=== PATIENT | male | born 1955 | race Caucasian/White ===

== ENCOUNTER → 2017-08-26 | Outpatient (CLI) | payer OTHER ==
[~2017-08-26] MED LIST: CYCL10TA6 PO; HYDR0.5T PO; HYT/2 PO; PRED-301 PO; ROPI1TAB PO; SULI200T4 PO; TRAM-10 PO
--- NOTE | 2017-08-26 16:50 | DIAGNOSTIC IMAGING REPORT ---
MRI OF THE CERVICAL SPINE WITHOUT IV CONTRAST CLINICAL HISTORY: C2 fracture. Neck pain and numbness. COMPARISON STUDY: CT scan of the cervical spine dated 10/15/2014 and MRI of the cervical spine dated 12/23/2006. TECHNIQUE: MRI of the cervical spine was performed utilizing various T1 and T2-weighted sequences in the axial and sagittal planes. IV contrast was not administered for this examination. The examination is significantly degraded by motion artifact. FINDINGS: Cervical spine: Vertebral body height and alignment are maintained throughout the cervical spine. There is a mild chronic superior endplate compression deformity of T1. 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 The atlantodental articulation appears maintained. The fragments are in anatomic alignment. The spinous processes appear intact. No destructive bony lesion is seen. Intervertebral discs: There is degenerative disc desiccation throughout the cervical spine with mild loss of height. Loss of height is [id number] at C4-C5. Paraspinal cord: The cervical spinal cord is normal in morphology and signal intensity. C2-C3: Facet arthropathy causes minimal neural foraminal stenosis. The central canal is clear. C3-C4: A posterior disc osteophyte complex eccentric to the left effaces the ventral subarachnoid space. Uncovertebral and facet arthropathy cause moderate left greater than right neural foraminal stenosis. C4-C5: A small posterior disc osteophyte complex effaces the ventral subarachnoid space. Uncovertebral and facet arthropathy cause moderate bilateral neural foraminal stenosis. C5-C6: A posterior disc osteophyte complex eccentric to the left abuts the ventral cord. Uncovertebral and facet arthropathy cause [id number] left and jddt-ko-dgnyajvu right neural foraminal stenosis. C6-C7: A posterior disc osteophyte complex minimally effaces the ventral subarachnoid space. Uncovertebral and facet arthropathy cause avcy-po-dcolmzgx left and minimal right neural foraminal stenosis. C7-T1: Unremarkable. Soft tissues: The prevertebral and paraspinous soft tissues are within normal limits. Brain parenchyma: Partially visualized brain parenchyma at the skull base is grossly normal in appearance. IMPRESSION: 1. There is a nonunited fracture through the base of the odontoid process. The atlantodental articulation is preserved and the fragments are in near-anatomic alignment. No significant marrow edema is seen. 2. There is a mild chronic superior endplate compression deformity of T1. 3. Multilevel cervical spondylosis as above. 4. The cervical spinal cord is normal in morphology and signal intensity. Dictated: 08/26/2017 4:25 PM Transcribed: 08/26/2017 4:50 PM [email or web address] Electronically signed by: Axel Cochran M.D. 08/26/2017 5:24 PM Dictated Date/Time: 08/26/2017 4:25 PM
== END | disposition home or self-care (01) ==
LOC: C.MRI 14:51
PROVIDERS: ATTEND Internal Medicine
DX: S12.101K Unspecified nondisplaced fracture of second cervical vertebra, subsequent encounter for fracture with nonunion (principal); M47.892 Other spondylosis, cervical region; X58.XXXD Exposure to other specified factors, subsequent encounter

== ENCOUNTER 2020-02-01 17:08 | Inpatient (IN) ==
--- OUTSIDE RECORDS SUMMARY | 2020-02-01 17:15 | External Medical Summary | Continuity of Care Document ---
:1955 Author Name Sanjay Reyes, Provider Address Unavailable Unavailable , Care Team Providers Name Role Phone Ramona Reyes, [place] [email or web address] PCP, UNKNOWN Unavailable Unavailable Problems Active medical history not documented Allergies and Adverse Reactions Allergy history not documented Medications Medications not documented Procedures Procedures not documented Immunizations Immunizations not documented Plan of Treatment Planned Observations Planned Goals not documented Results No Known Results Results not documented
[2020-02-01] MEDS ORDERED: SODIUM CHLORIDE 0.9% 1000ML 1,000 ML IV ONE (17:25)
--- NOTE | 2020-02-01 17:48 | Emergency Department Note ---
Impression & Plan Atrial flutter, Pneumonia Allergies Allergies Allergy/AdvReac Type Severity Reaction Status Date / Time No Known Drug Allergies Allergy Unknown NONE Verified 01/25/18 12:22 Home Meds Home Medications Medication Instructions Recorded Confirmed diclofenac sodium 50 mg PO BID PRN 08/12/18 08/12/18 etanercept [Enbrel] 50 mg SUBCUT WK 08/12/18 08/12/18 ferrous sulfate [iron] 325 mg PO QPM 08/12/18 08/12/18 multivitamin 1 tab PO QPM 08/12/18 08/12/18 naproxen 500 mg PO BID PRN 08/12/18 08/12/18 potassium chloride [Klor-Con M20] 20 meq PO QAM 08/12/18 08/12/18 ropinirole [Requip] 2 mg PO HS PRN 08/12/18 08/12/18 terazosin 2 mg PO BID 08/12/18 08/12/18 ED Provider Note NAME: JASEN YO AGE: 64 SEX: M : 1955 ARRIVES VIA: Ambulance INFORMANT: [Patient][, ] ED PROVIDER(S): [Edvin Cotter MD] Chief Complaint: Cough, night sweats HPI: Patient does present via EMS due to concern for cough and night sweats. The patient is also been complaining shortness of breath. The patient has had mild nonproductive cough. The patient is currently undomiciled but has been living out of hotels as well as the out of the cold program. The patient does take Enbrel for rheumatoid arthritis. The patient dates has not been on this for approximately 6 weeks. Patient also does relate that he has been using pseudoephedrine for upper respiratory type symptoms. The patient denies any recent sick contacts but he has been around a number of people who also do not have at home. The patient states his symptoms have gotten progressively worse over the last several days. The Sudafed has only made him mildly better. ROS: See HPI for pertinent positives and negatives. A total of 10 systems were reviewed and otherwise negative. Past medical history: See below Surgical history: See below Social history: See below Physical Exam: GENERAL: Ill-appearing, NAD, non-toxic. Wearing mask EYE EXAM: Normal conjunctiva. PERRL, no anisocoria and EOM's grossly intact w/o pain. NECK: Supple, no nuchal rigidity, no adenopathy, non-tender. No signs of meningismus. LUNGS: Clear to auscultation. Normal chest wall mechanics. HEART: Tachycardic and regular, no MRG. ABDOMEN: Abdomen soft, non-tender, normo-active bowel sounds, no masses, no rebound or guarding. BACK: No CVA TTP. SKIN: No rashes and no bruising. UPPER EXTREMITIES: Upper extremities are grossly normal. LOWER EXTREMITIES: Grossly normal, trace pretibial edema that is symmetric bilaterally. No erythema. NEURO EXAM: A&O x3, cranial nerves II-XII grossly intact, normal speech, moves all 4 extremities on command w/o issue. Differential diagnoses: Reactive airway disease, pneumonia, pneumothorax, COPD, CHF, infections, cardiac ischemia, pulmonary embolism, musculoskeletal, gastro intestinal, as well as other pathologies. Course: Patient was seen and evaluated the bedside. A full history and physical exam was performed under full PPE. Patient did receive adenosine. Subsequently patient did receive Cardizem. The patient was updated on his findings. His heart rate did improve. Did speak the on-call hospitalist Dr. Moctezuma who agreed to further evaluate treat the patient. Patient was admitted to the medicine service. EKG: Indication: Shortness of breath Time: 1722 SVT versus A. fib, ventricular rate 154, normal QRS, left axis deviation, T wave inversions inferiorly Time: 1841 Indication: Post adenosine administration A. fib versus a flutter ventricular rate 143, normal QRS duration, normal axis, T wave inversion inferiorly Time: 1853 Indication: post Cardizem administration Atrial flutter with variable AV block, ventricular rate weight 103, normal QRS, normal axis, TWI inferiorly and laterally; rates improved compared to prior. Imaging Studies: Radiology results as stated below per my review in the radiologist's interpretation: XR chest 1V portable CLINICAL HISTORY: cough, nightsweats, ?shelters, possible TB dyspnea COMPARISON STUDY: 01/25/2018 FINDINGS: Interval development of diffuse parenchymal infiltrates the mid to lower lung region. This may be inflammatory and/or related to developing pulmonary edema. The pulmonary apices are clear. IMPRESSION: Bilateral parenchymal infiltrates the mid to lower lung regions bilaterally. This may represent pneumonitis versus pulmonary edematous change. ACT 112: Negative or not required by law. The above report was generated using voice recognition software. It may contain grammatical, syntax or spelling errors. Electronically signed by: Fidencio Garza M.D. 02/01/2020 6:05 PM Dictated: 02/01/201803 Transcribed: 02/01/201803 Cardiac monitoring: An order was placed for continuous cardiac monitoring. The monitor shows a rate of 150 with sinus tachycardia versus SVT rhythm. MDM: Patient was seen in [facility] at the bedside. The patient is currently undomiciled. The patient has been having cough and night sweats. Upper respiratory symptoms. Patient had a bladder completed along with an EKG troponin blood cultures QuantiFERON gold coronavirus testing as well as a flu swab. The patient was given IV fluids. The patient does relate that he has been taking more and more Sudafed which may also be contributing to his tachycardia. Will continue to hydrate and reassess the patient's vital signs. The patient's heart rate did not improve. Patient initial EKG does show concern for possible SVT. A trial of adenosine was given. The patient did have improvement in his heart rate but subsequently repeat EKG did show an A. fib versus a flutter. The patient did receive 15 of Cardizem. The patient's heart rate improved. The patient felt improved in terms of his shortness of breath. Given the patient's concerning chest x-ray I believe that the patient would benefit from antibiotics especially given his high risk nature as he is currently undomiciled. Patient's white count and lactate are normal. The patient has fairly normal kidney function. The patient likely does have prerenal azotemia. The patient was given potassium. Coronavirus and TB pendi ng. Flu negative. Patient was admitted to the medicine service. Critical Care I have personally spent 92 minutes of critical care time in direct management of this patient. This includes bedside care, interpretation of diagnostic studies, and testing, discussion with consultants, patient, and family members, and other require inpatient management activities. This 92 minutes is in excess of all separately billable procedures. Past Med/Surg History Medical History Anemia BPH (benign prostatic hyperplasia) Hx of fracture of leg left - not current Hypertension Restless leg syndrome Rheumatoid arthritis Urinary frequency r/t prostate Surgical History History of tonsillectomy History of tooth extraction Family History Father Family history of diabetes mellitus Social History Preferred Language: Nepali Communication Ability: Effective Beliefs That Will Affect Care: None Current Living Situation: Alone Feels Safe at Home: Yes Smoking Status: Former smoker Second Hand Exposure: No ; Hx Alcohol Use: No Hx Substance Use: Yes substance use type: painkillers and prescription drug Results & Data (ED) Vital Signs Vital Signs - 24 hr 02/01/20 17:25 02/01/20 17:30 02/01/20 17:40 Temperature 36.7 C Temperature Source Oral Pulse Rate 153 H 153 H 153 H Pulse Rate from SpO2 Sensor 153 H 153 H Pulse Rhythm Regular Pulse Strength Normal Respiratory Rate 20 25 H 23 Respiratory Effort / Characteristics Non-Labored Spontaneous Respiratory Depth Normal Respiratory Pattern Regular Blood Pressure 141/87 H Blood Pressure Mean 105 Pulse Oximetry 96 98 98 Oxygen Delivery Method Room Air Sepsis Recent Fever Within 48 Hours No Sepsis New/Unexplained Change in Mental Status No Sepsis Action Taken by Nursing No Action Required 02/01/20 17:50 02/01/20 18:00 02/01/20 18:10 Temperature Temperature Source Pulse Rate 149 H 154 H 153 H Pulse Rate from SpO2 Sensor 152 H 153 H 154 H Pulse Rhythm Pulse Strength Respiratory Rate 21 18 Respiratory Effort / Characteristics Respiratory Depth Respiratory Pattern Blood Pressure Blood Pressure Mean Pulse Oximetry 97 96 97 Oxygen Delivery Method Sepsis Recent Fever Within 48 Hours Sepsis New/Unexplained Change in Mental Status Sepsis Action Taken by Nursing 02/01/20 18:20 02/01/20 18:30 02/01/20 18:36 Temperature Temperature Source Pulse Rate 154 H 155 H 149 H Pulse Rate from SpO2 Sensor 154 H 155 H 152 H Pulse Rhythm Pulse Strength Respiratory Rate 15 22 24 Respiratory Effort / Characteristics Respiratory Depth Respiratory Pattern Blood Pressure 127/98 Blood Pressure Mean 115 Pulse Oximetry 96 95 95 Oxygen Delivery Method Sepsis Recent Fever Within 48 Hours Sepsis New/Unexplained Change in Mental Status Sepsis Action Taken by Nursing 02/01/20 18:40 02/01/20 18:45 02/01/20 18:46 Temperature Temperature Source Pulse Rate 139 H 143 H 142 H Pulse Rate from SpO2 Sensor 143 H 149 H 145 H Pulse Rhythm Pulse Strength Respiratory Rate 23 23 27 H Respiratory Effort / Characteristics Respiratory Depth Respiratory Pattern Blood Pressure 145/107 H 139/100 Blood Pressure Mean 112 121 Pulse Oximetry 95 95 96 Oxygen Delivery Method Sepsis Recent Fever Within 48 Hours Sepsis New/Unexplained Change in Mental Status Sepsis Action Taken by Nursing 02/01/20 18:48 02/01/20 18:50 02/01/20 19:00 Temperature Temperature Source Pulse Rate 133 H 124 H 117 H Pulse Rate from SpO2 Sensor 141 H 129 H 94 H Pulse Rhythm Pulse Strength Respiratory Rate 24 29 H 22 Respiratory Effort / Characteristics Respiratory Depth Respiratory Pattern Blood Pressure 112/80 104/80 Blood Pressure Mean 85 91 Pulse Oximetry 95 95 96 Oxygen Delivery Method Sepsis Recent Fever Within 48 Hours Sepsis New/Unexplained Change in Mental Status Sepsis Action Taken by Nursing 02/01/20 19:01 02/01/20 19:10 02/01/20 19:20 Temperature Temperature Source Pulse Rate 102 H 108 H 133 H Pulse Rate from SpO2 Sensor 109 H 111 H 126 H Pulse Rhythm Pulse Strength Respiratory Rate 25 H 25 H 27 H Respiratory Effort / Characteristics Respiratory Depth Respiratory Pattern Blood Pressure 158/84 H 130/95 117/91 Blood Pressure Mean 126 102 93 Pulse Oximetry 93 94 95 Oxygen Delivery Method Sepsis Recent Fever Within 48 Hours Sepsis New/Unexplained Change in Mental Status Sepsis Action Taken by Nursing 02/01/20 19:30 02/01/20 19:31 02/01/20 19:40 Temperature Temperature Source Pulse Rate 141 H 132 H 128 H Pulse Rate from SpO2 Sensor Pulse Rhythm Pulse Strength Respiratory Rate 24 27 H 20 Respiratory Effort / Characteristics Respiratory Depth Respiratory Pattern Blood Pressure 154/88 H 136/83 Blood Pressure Mean 112 113 Pulse Oximetry 97 Oxygen Delivery Method Sepsis Recent Fever Within 48 Hours Sepsis New/Unexplained Change in Mental Status Sepsis Action Taken by Care Home Medications Current Medication List: was personally reviewed by me Laboratory Data Attestation: I reviewed the patient's lab results. Result diagrams: 02/01/20 17:51 02/01/20 17:51 Lab Results 02/01/20 02/01/20 02/01/20 Range/Units 17:36 17:41 17:51 WBC 7.80 (4.8-10.8) K/uL RBC 4.57 L (4.7-6.1) M/uL Hgb 11.7 L (14.0-18.0) g/dL Hct 36.3 L (42-52) % MCV 79.4 L (80-100) fL MCH 25.6 (25-34) pg MCHC 32.2 (32-36) g/dL RDW Std Deviation 45.8 (36.4-46.3) fL RDW Coeff of Jayjay 15.8 H (11.5-14.5) % Plt Count 476 H (130-400) K/uL MPV 9.9 (7.4-10.4) fL Immature Gran % (Auto) 0.3 % Neut % (Auto) 70.0 % Lymph % (Auto) 17.1 % Giles % (Auto) 7.2 % Eos % (Auto) 5.0 % Baso % (Auto) 0.4 % Immature Gran # (Auto) 0.02 (0.00-0.02) K/uL Neut # (Auto) 5.47 (1.4-6.5) K/uL Lymph # (Auto) 1.33 (1.2-3.4) K/uL Giles # (Auto) 0.56 (0.11-0.59) K/uL Eos # (Auto) 0.39 (0-0.5) K/uL Baso # (Auto) 0.03 (0-0.2) K/uL PT (9.0-12.0) Seconds INR (0.9-1.1) APTT (21.0-31.0) Seconds PTT Ratio Sodium (136-145) mmol/L Potassium (3.5-5.1) mmol/L Chloride (98-107) mmol/L Carbon Dioxide (21-32) mmol/L Anion Gap (3-11) BUN (7-18) mg/dl Creatinine (0.6-1.4) mg/dl Est Cr Clr Drug Dosing ml/min Est GFR ( Amer) Est GFR (Non-Af Amer) BUN/Creatinine Ratio (10-20) Glucose (70-99) mg/dl Lactate 1.3 (0.4-2.0) mmol/L Calcium (8.5-10.1) mg/dl Phosphorus (2.5-4.9) mg/dl Magnesium (1.8-2.4) mg/dl Total Bilirubin (0.2-1) mg/dl AST (15-37) U/L ALT (12-78) U/L Alkaline Phosphatase (45-117) U/L Total Protein (6.4-8.2) gm/dl Albumin (3.4-5.0) gm/dl Globulin (2.5-4.0) gm/dl Albumin/Globulin Ratio (0.9-2) Procalcitonin (0-0.5) ng/ml Influenza Type A (PCR) Neg for Influ A (Neg) Influenza Type B (PCR) Neg for Influ B (Neg) 02/01/20 02/01/20 02/01/20 Range/Units 17:51 17:51 17:51 WBC (4.8-10.8) K/uL RBC (4.7-6.1) M/uL Hgb (14.0-18.0) g/dL Hct (42-52) % MCV (80-100) fL MCH (25-34) pg MCHC (32-36) g/dL RDW Std Deviation (36.4-46.3) fL RDW Coeff of Jayjay (11.5-14.5) % Plt Count (130-400) K/uL MPV (7.4-10.4) fL Immature Gran % (Auto) % Neut % (Auto) % Lymph % (Auto) % Giles % (Auto) % Eos % (Auto) % Baso % (Auto) % Immature Gran # (Auto) (0.00-0.02) K/uL Neut # (Auto) (1.4-6.5) K/uL Lymph # (Auto) (1.2-3.4) K/uL Giles # (Auto) (0.11-0.59) K/uL Eos # (Auto) (0-0.5) K/uL Baso # (Auto) (0-0.2) K/uL PT 12.3 H (9.0-12.0) Seconds INR 1.2 H (0.9-1.1) APTT 28.0 (21.0-31.0) Seconds PTT Ratio 1.0 Sodium 138 (136-145) mmol/L Potassium 3.2 L (3.5-5.1) mmol/L Chloride 107 (98-107) mmol/L Carbon Dioxide 25 (21-32) mmol/L Anion Gap 6.0 (3-11) BUN 25 H (7-18) mg/dl Creatinine 0.83 (0.6-1.4) mg/dl Est Cr Clr Drug Dosing 95.8 ml/min Est GFR ( Amer) 107.8 Est GFR (Non-Af Amer) 93.0 BUN/Creatinine Ratio 30.2 H (10-20) Glucose 112 H (70-99) mg/dl Lactate (0.4-2.0) mmol/L Calcium 8.2 L (8.5-10.1) mg/dl Phosphorus 2.8 (2.5-4.9) mg/dl Magnesium 2.1 (1.8-2.4) mg/dl Total Bilirubin 0.4 (0.2-1) mg/dl AST 22 (15-37) U/L ALT 28 (12-78) U/L Alkaline Phosphatase 101 (45-117) U/L Total Protein 7.0 (6.4-8.2) gm/dl Albumin 2.6 L (3.4-5.0) gm/dl Globulin 4.4 H (2.5-4.0) gm/dl Albumin/Globulin Ratio 0.6 L (0.9-2) Procalcitonin 0.11 (0-0.5) ng/ml Influenza Type A (PCR) (Neg) Influenza Type B (PCR) (Neg) Administered Medications Heparin Sodium/Dextrose (Heparin Sodium/Dextrose) 25,000 units in 500 mls @ 0.02 mls/hr IV .Q24H [facility]; Protocol Stop: 03/02/20 18:59 Last Admin: 02/01/20 19:19 Dose: 1,450 units/hr, 29 mls/hr Documented by: [id number] Cosigned by: [id number] Discontinued Medications Adenosine (Adenosine) 6 mg IV NOW STA Stop: 02/01/20 18:22 Last Admin: 02/01/20 18:37 Dose: 6 mg Documented by: [id number] Adenosine (Adenosine) 12 mg IV NOW STA Stop: 02/01/20 18:22 Last Admin: 02/01/20 18:44 Dose: Not Given Documented by: [id number] Adenosine (Adenosine) Confirm Administered Dose 18 mg IV .STK-MED ONE Stop: 02/01/20 18:24 Last Admin: 02/01/20 18:44 Dose: Not Given Documented by: [id number] Diltiazem HCl (Cardizem) Confirm Administered Dose 25 mg IV .STK-MED ONE Stop: 02/01/20 18:45 Last Admin: 02/01/20 18:48 Dose: Not Given Documented by: [id number] Diltiazem HCl (Cardizem) 15 mg IV NOW STA Stop: 02/01/20 18:46 Last Admin: 02/01/20 18:46 Dose: 15 mg Documented by: [id number] Cosigned by: [id number] Doxycycline Hyclate (Vibramycin) 100 mg PO NOW STA Stop: 02/01/20 18:57 Last Admin: 02/01/20 19:33 Dose: 100 mg Documented by: [id number] Heparin Sodium (Porcine) (Heparin Iv Bolus) Confirm Administered Dose 10,000 units .ROUTE .STK-MED ONE Stop: 02/01/20 19:10 Last Admin: 02/01/20 19:19 Dose: 5,000 units Documented by: [id number] Cosigned by: [id number] Heparin Sodium/Dextrose () 1 ea IV NOW STA; Protocol Stop: 02/01/20 18:56 Last Admin: 02/01/20 19:48 Dose: 1 ea Documented by: [id number] Sodium Chloride (Nss 1000ml) 1,000 mls @ 999 mls/hr IV .Q1H1M ONE Stop: 02/01/20 18:25 Last Infusion: 02/01/20 18:20 Dose: 0 mls/hr Documented by: [id number] Admin: 02/01/20 17:25 Dose: 999 mls/hr Documented by: [id number] Ceftriaxone Sodium (Rocephin) 2,000 mg in 70 mls @ 140 mls/hr IV NOW STA Stop: 02/01/20 19:25 Last Admin: 02/01/20 19:33 Dose: 140 mls/hr Documented by: [id number] Blood Pressure Blood Pressure Findings: Elevated blood pressure Blood Pressure Disposition: further management by hospitalist Discharge Plan Visit Data Chief Complaint: Illness Stated Complaint: COUGH, NIGHT SWEATS ED Provider: Edvni Cotter Discharge Problem: Atrial flutter, Pneumonia Patient Disposition: Being Evaluated by Hospitalist Forms Stand Alone Forms: [facility], Important Visit Information Prescriptions Prescriptions: No Action multivitamin Tablet 1 tab PO QPM RF: 0 potassium chloride [Klor-Con M20] 20 mEq Tablet,Er Particles/Crystals 20 meq PO QAM RF: 0 terazosin 2 mg Capsule 2 mg PO BID RF: 0 ropinirole [Requip] 2 mg Tablet 2 mg PO HS PRN (Reason: Restless Leg(S)) RF: 0 ferrous sulfate [iron] 325 mg (65 mg iron) Tablet 325 mg PO QPM RF: 0 diclofenac sodium 50 mg Tablet,Delayed Release (Dr/Ec) 50 mg PO BID PRN (Reason: Pain) RF: 0 naproxen 500 mg Tablet 500 mg PO BID PRN (Reason: Pain) RF: 0 etanercept [Enbrel] 50 mg/mL (0.98 mL) Syringe 50 mg subcut WK RF: 0 Referrals Referrals: PCP,NO [Primary Care Provider] - Discharge Problem: Atrial flutter Qualifiers: Atrial flutter type: unspecified Qualified Code(s): I48.92 - Unspecified atrial flutter Pneumonia Qualifiers: Pneumonia type: due to unspecified organism Laterality: right Lung location: lo wer lobe of lung Qualified Code(s): J18.9 - Pneumonia, unspecified organism
[2020-02-01 18:05] LABS: Basophils # (auto) 0.03 K/uL (0-0.2); Basophils % (auto) 0.4 %; Eosinophils # (auto) 0.39 K/uL (0-0.5); Hematocrit (blood only) 36.3 % (42-52); Hemoglobin 11.7 g/dL (14.0-18.0); Immature Granulocytes # (auto) 0.02 K/uL (0.00-0.02); Immature Granulocytes % (auto) 0.3 %; Lymphocytes # (auto) 1.33 K/uL (1.2-3.4); Lymphocytes % (auto) 17.1 %; Mean Corpuscular Hemoglobin 25.6 pg (25-34); Mean Corpuscular Hgb Conc 32.2 g/dL (32-36); Mean Corpuscular Volume 79.4 fL (80-100); Mean Platelet Volume 9.9 fL (7.4-10.4); Monocytes # (auto) 0.56 K/uL (0.11-0.59); Monocytes % (auto) 7.2 %; Neutrophils # (auto) 5.47 K/uL (1.4-6.5); Platelet Count 476 K/uL (130-400); RDW Coefficient of Variation 15.8 % (11.5-14.5); RDW Standard Deviation 45.8 fL (36.4-46.3); Red Blood Count 4.57 M/uL (4.7-6.1)
--- NOTE | 2020-02-01 18:06 | XRay Report ---
XR chest 1V portable CLINICAL HISTORY: cough, nightsweats, ?shelters, possible TB dyspnea COMPARISON STUDY: 01/25/2018 FINDINGS: Interval development of diffuse parenchymal infiltrates the mid to lower lung region. This may be inflammatory and/or related to developing pulmonary edema. The pulmonary apices are clear. IMPRESSION: Bilateral parenchymal infiltrates the mid to lower lung regions bilaterally. This may re present pneumonitis versus pulmonary edematous change. ACT 112: Negative or not required by law. The above report was generated using voice recognition software. It may contain grammatical, syntax or spelling errors. Electronically signed by: Fidencio Garza M.D. 02/01/2020 6:05 PM
[2020-02-01 18:17] LABS: INR 1.2 (0.9-1.1); Prothrombin Time 12.3 Seconds (9.0-12.0)
[2020-02-01] MEDS ORDERED: ADENOSINE IV SOLN 3 MG/ML 2 ML VIAL IV STA ×2 (18:21)
[2020-02-01] MEDS ORDERED: ADENOSINE IV SOLN 3 MG/ML 2 ML VIAL IV ONE (18:23)
[2020-02-01 18:41] LABS: Alanine Aminotransferase 28 U/L (12-78); Albumin Level 2.6 gm/dl (3.4-5.0); Aspartate Aminotransferase 22 U/L (15-37); BUN Creatinine Ratio 30.2 (10-20); Blood Urea Nitrogen 25 mg/dl (7-18); Calcium 8.2 mg/dl (8.5-10.1); Carbon Dioxide 25 mmol/L (21-32); Chloride 107 mmol/L (98-107); Creatinine Clr Calc Pharmacy 95.8 ml/min; Est GFR (African American) 107.8; Glucose 112 mg/dl (70-99); Magnesium 2.1 mg/dl (1.8-2.4); Potassium 3.2 mmol/L (3.5-5.1); Sodium 138 mmol/L (136-145)
[2020-02-01 18:43] LABS: Albumin Globulin Ratio 0.6 (0.9-2); Alkaline Phosphatase 101 U/L (45-117); Bilirubin,Total 0.4 mg/dl (0.2-1); Globulin 4.4 gm/dl (2.5-4.0); Phosphorus 2.8 mg/dl (2.5-4.9)
[2020-02-01] MEDS ORDERED: dilTIAZem HCl 5 MG/ML 5 ML VIAL IV ONE (18:44)
[2020-02-01] MEDS ORDERED: dilTIAZem HCl 5 MG/ML 5 ML VIAL IV STA (18:45)
[2020-02-01 18:48] LABS: Influenza A virus by PCR Neg for Influ A (Neg); Influenza B virus by PCR Neg for Influ B (Neg)
[2020-02-01] MEDS ORDERED: cefTRIAXone SODIUM 2,000 MG/70 ML BAG IV STA (18:56)
[2020-02-01] MEDS ORDERED: DOXYCYCLINE HYCLATE 100 MG CAP PO STA (18:56)
[2020-02-01] MEDS ORDERED: HEPARIN SODIUM/DEXTROSE 25,000 UNITS/500 ML BAG IV SCH (19:00)
[2020-02-01] MEDS ORDERED: HEPARIN SOD (PORCINE) 1000 UNIT/ML 10 ML VIAL ONE (19:09)
[2020-02-01] MEDS ORDERED: POTASSIUM CHLORIDE 20 MEQ TABCR PO STA (19:47)
[2020-02-01] MEDS ORDERED: METOPROLOL TARTRATE 1 MG/ML VIAL IV PRN (19:47)
[2020-02-01 20:04] LABS: Appearance Urine Clear (Clear); Bilirubin Urine Negative (Negative); Blood Urine Negative (Negative); Color Urine Yellow; Glucose Urine UA Negative (Negative); Ketones Urine Negative (Negative); Leukocyte Esterase Urine Negative (Negative); Nitrite Urine Negative (Negative); Protein Urine Negative (Negative); Specific Gravity Urine 1.021 (1.000-1.030); Urobilinogen Urine Negative (Negative); pH Urine 6.5 (4.5-7.5)
[2020-02-01] MEDS: POTASSIUM CHLORIDE / WTR 10 MEQ/100 ML PLCT IV SCH ×2 (20:05→21:18)
[2020-02-01] MEDS ORDERED: ALBUMIN HUMAN 25% 12.5 GM/50 ML VIAL IV ONE (20:47)
[2020-02-01] MEDS: ALBUMIN 25% 50 ML IV SCH ×2 (21:00→22:22)
[2020-02-01] MEDS ORDERED: ALBUMIN 25% 50 ML IV ONE (21:12)
[2020-02-01] MEDS ORDERED: NAPROXEN 250 MG TAB PO PRN (21:59)
[2020-02-01] MEDS ORDERED: FERROUS SULFATE 325 MG TAB PO SCH (21:59)
[2020-02-01] MEDS ORDERED: DICLOFENAC SODIUM 25 MG TABDR PO PRN (21:59)
[2020-02-01] MEDS ORDERED: ALUMINUM/MAGNESIUM SUSP 30 ML UDC PO PRN (21:59)
[2020-02-01] MEDS ORDERED: ACETAMINOPHEN 325 MG TAB PO PRN (21:59)
[2020-02-01] MEDS ORDERED: MAGNESIUM HYDROXIDE SUSP 30 ML UDC PO PRN (21:59)
[2020-02-01] MEDS ORDERED: PIPERACILL/TAZOBAC CONSULT ACTIVE PRN (21:59)
[2020-02-01] MEDS ORDERED: ONDANSETRON INJ 2 MG/ML 2 ML VIAL IV PRN (21:59)
[2020-02-01] MEDS ORDERED: VANCOMYCIN CONSULT ACTIVE PRN (21:59)
[2020-02-01 22:19] LABS: Troponin I < 0.015 ng/ml (0-0.045)
--- NOTE | 2020-02-01 22:46 | History & Physical Report ---
Date of Service February 01, 2020 Assessment & Plan (1) Atrial flutter: New onset atrial flutter with RVR//hypertension/hypokalemia- The patient will be admitted to telemetry for serial cardiac enzymes, serial EKG's, cardiac rhythm monitoring and a 2-D echocardiogram with Dopplers. Hold terazosin [address] twice daily. [address] on Cardizem 10 mg IV every 4 hours with hold parameters. Lopressor 5 mg IV every 4 hours as needed for heart rate greater than 110 or systolic blood pressure greater than 130. Give Klor-Con 40 mEq p.o. now, and then KCl 10 mEq K riders x2. Repeat laboratories in a.m. Consult cardiology Present on Admission?: Yes (2) Rheumatoid arthritis: Patient reports he has not had his Enbrel for 6 weeks. Present on Admission?: Yes (3) Restless leg syndrome: Continue ropinirole 1 mg p.o. twice daily Present on Admission?: Yes (4) BPH (benign prostatic hyperplasia): Hold terazosin due to atrial flutter. May change to tamsulosin Present on Admission?: Yes (5) Hypertension: See above. Present on Admission?: Yes (6) Pneumonia: Significantly greater right sided pneumonia compared to left. Place on vancomycin IV, Zosyn IV and levofloxacin IV Duonebs every 4 hours while awake and every 2 hours when necessary. Guaifenesin extended release 600 mg p.o. twice daily. Nasal cannula oxygen, titrate to keep pulse ox 94 to 95%. Placed in negative pressure room due to potential COVID due to non-domiciled status and potential exposures to other non-domiciled persons. Present on Admission?: Yes (7) Hypokalemia: See above. Present on Admission?: Yes (8) Hypoalbuminemia: Was given albumin 25 g IV x2 in ED, and will continue every 4 hours x3 more doses, to help with heart rate and blood pressure Present on Admission?: Yes (9) Homeless single person: Due to his non-domiciled status, patient is considered at increased risk for COVID. Present on Admission?: Yes Admission and Anticipated Discharge Date Admission Date: February 01, 2020 History of Present Illness Chief Complaint: The patient presents to the emergency department with complaint of nonproductive cough, sweats, shortness of breath and fatigue over the last few weeks, but worsening of the last several days. Primary Care Provider: NO PCP The patient is a 64-year-old male with a past medical history including rheumatoid arthritis, odontoid fracture, thoracic vertebral fracture, restless leg syndrome, iron deficiency who presents to the emergency department with the above symptoms. He is presently an undomiciled male, who has been living out of hotels and the out of the [email or web address] program. He has not had any recent travels, and is not aware of any sick contacts, but he has been around a number of people who also do not have a home. In the emergency department he had an EKG performed and continuous monitoring, which suggested atrial flutter in the rate range of 140s to 150s. He did receive Cardizem 10 mg IV, and adenosine 6 mg IV, and later after the addition of Lopressor 5 mg IV, rate overall did improve somewhat to the low 100s range. Chest x-ray performed showed significant right middle lobe and right lower lobe infiltrates along with left lower lobe infiltrate. Laboratory abnormalities were primarily concerning for potassium of 3.2, albumin of 2.6, hemoglobin of 11.7 and platelets of 476. Allergies Allergy/AdvReac Type Severity Reaction Status Date / Time No Known Drug Allergies Allergy Unknown NONE Verified 02/01/20 20:33 Home Medications Home Medications Medication Instructions Recorded Confirmed Type diclofenac sodium 50 mg PO BID PRN 08/12/18 02/01/20 History etanercept [Enbrel] 50 mg SUBCUT WK 08/12/18 02/01/20 History ferrous sulfate [iron] 325 mg PO QPM 08/12/18 02/01/20 History multivitamin 1 tab PO QPM 08/12/18 02/01/20 History naproxen 500 mg PO BID PRN 08/12/18 02/01/20 History potassium chloride [Klor-Con M20] 20 meq PO QAM 08/12/18 02/01/20 History ropinirole 1 mg PO BID 02/01/20 02/01/20 History terazosin 1 mg PO BID 02/01/20 02/01/20 History tramadol 50 mg PO Q8H PRN 02/01/20 02/01/20 History Past Med/Surg History Medical History Anemia BPH (benign prostatic hyperplasia) Hx of fracture of leg left - not current Hypertension Restless leg syndrome Rheumatoid arthritis Urinary frequency r/t prostate Surgical History History of tonsillectomy History of tooth extraction Family History Father Family history of diabetes mellitus Social History Preferred Language: Vietnamese Communication Ability: Effective Research 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 Policy Required: No Beliefs That Will Affect Care: None Current Living Situation: Homeless Other Information That Helps Us Care for You: No Feels Safe at Home: No Is there a partner from a previous relationship who is making you feel unsafe now?: No Any Concerns about Your Family Situation: No Would You Like to Speak to Someone About Your Situation: No Smoking Status: Never smoker Second Hand Exposure: No ; Hx Alcohol Use: No Hx Substance Use: No Review of Systems Review of Systems: The patient denies chest pain, palpitations, lower extremity swelling, sore throat, fevers, chills, sweats, nausea, vomiting, diarrhea , constipation, abdominal pain, pelvic pain, blood in urine or stool, dysuria, urinary frequency or urgency, lightheadedness, dizziness, headache, memory loss, loss of consciousness, rash, abnormal bruising or bleeding, imbalance, focal or generalized weakness, numbness or tingling in arms or legs, generalized arthralgias or myalgias, back or neck pain, or night sweats. The review of systems is otherwise negative other than for that already noted above, and at least 10 systems have been reviewed. Physical Exam Physical Exam: The patient is awake, alert and oriented 3, well developed and well nourished, normocephalic and atraumatic, lying in bed and in no acute dist ress. HEENT--PERRL, EOMI, mucous membranes and oropharynx dry. Neck--supple. No JVD. No bruits. Thyroid normal, trachea midline, no adenopathy. Heart--normal S1 and S2. No murmurs, rubs or gallops. Lungs--clear bilaterally, no respiratory distress, no accessory muscle use. Abdomen--normal bowel sounds and soft. Nontender. Nondistended, no hernias or masses, no organomegaly. Extremities--no cyanosis or clubbing. No edema. There are good distal pulses b/l. Dermatologic--normal skin turgor, normal color, no abnormal lymph nodes, no rash. Neurologic--cranial nerves II through XII grossly intact. Rheumatologic--normal range of motion. Psychiatric--normal affect. Results & Data Results & Data ([facility]) Vital Signs (Past 12 Hours) Vital Signs Temp Pulse Resp BP Pulse Ox 02/01/20 21:54 141 H 27 H 123/92 94 02/01/20 21:22 133 H 29 H 94 02/01/20 21:20 153 H 24 117/95 94 02/01/20 21:19 155 H 25 H 135/99 91 02/01/20 21:10 156 H 31 H 120/102 H 02/01/20 21:00 141 H 32 H 123/101 H 02/01/20 20:51 118 H 29 H 02/01/20 20:50 141 H 25 H 111/93 02/01/20 20:41 152 H 22 02/01/20 20:40 151 H 27 H 109/87 02/01/20 20:31 152 H 27 H 02/01/20 20:30 151 H 27 H 114/96 02/01/20 20:20 131 H 26 H 110/93 02/01/20 20:10 132 H 31 H 125/100 02/01/20 20:05 138 H 140/96 02/01/20 20:00 142 H 27 H 140/96 02/01/20 19:50 132 H 22 141/106 H 02/01/20 19:40 128 H 20 136/83 97 02/01/20 19:31 132 H 27 H 154/88 H 02/01/20 19:30 141 H 24 02/01/20 19:20 133 H 27 H 117/91 95 02/01/20 19:10 108 H 25 H 130/95 94 02/01/20 19:01 102 H 25 H 158/84 H 93 02/01/20 19:00 117 H 22 96 02/01/20 18:50 124 H 29 H 104/80 95 02/01/20 18:48 133 H 24 112/80 95 02/01/20 18:46 142 H 27 H 96 02/01/20 18:45 143 H 23 139/100 95 02/01/20 18:40 139 H 23 145/107 H 95 02/01/20 18:36 149 H 24 127/98 95 02/01/20 18:30 155 H 22 95 02/01/20 18:20 154 H 15 96 02/01/20 18:10 153 H 97 02/01/20 18:00 154 H 18 96 02/01/20 17:50 149 H 21 97 02/01/20 17:40 153 H 23 98 02/01/20 17:30 153 H 25 H 98 02/01/20 17:25 98.1 F 153 H 20 141/87 H 96 Code Status & VTE Plan Code Status Full code VTE Prophylaxis Plan VTE Prophylaxis will be ordered: Yes PG Care Time/CCT Total # of Minutes Spent Total Time Spent with Patient: Total time spent is greater than 50% in coordination of care (as documented) at patient's floor/unit and/or counseling patient: Coding Level of Care Code 29973 Initial Inpt Care Lvl 3 Diagnoses Atrial flutter I48.92 Atrial flutter type: unspecified Rheumatoid arthritis M06.9 Restless leg syndrome G25.81 BPH (benign prostatic hyperplasia) N40.0 Hypertension I10 Pneumonia J18.9 Laterality: right Lung location: lower lobe of lung Pneumonia type: due to unspecified organism Hypokalemia E87.6 Hypoalbuminemia E88.09 Homeless single person Z59.0 (1) Atrial flutter Atrial flutter type: unspecified Qualified Code(s): I48.92 - Unspecified atrial flutter (2) Pneumonia Laterality: right Lung location: lower lobe of lung Pneumonia type: due to unspecified organism Qualified Code(s): J18.9 - Pneumonia, unspecified organism
[2020-02-01] MEDS ORDERED: PIPERACILLIN/TAZOBACTAM 4.5 GM in DEXTROSE 5% 100 ML IV STA (22:52)
[2020-02-01] MEDS ORDERED: VANCOMYCIN HCL 2,000 MG in SODIUM CHLORIDE 0.9% 500 ML IV ONE (23:00)
[2020-02-01] MEDS: MULTIVITAMIN TAB PO SCH (23:23)
[2020-02-01] MEDS: dilTIAZem HCl 5 MG/ML 5 ML VIAL IV SCH (23:24)
[2020-02-01] MEDS: guaiFENesin 600 MG TABCR PO SCH (23:36)
[2020-02-02] MEDS ORDERED: ALPRAZolam 0.5 MG TABLET PO STA (00:54)
[2020-02-02] MEDS ORDERED: ALBUT/IPRATROP 3MG/0.5MG NEB 3 ML VIAL NEB PRN (00:54)
[2020-02-02] MEDS: dilTIAZem HCl 5 MG/ML 5 ML VIAL IV SCH ×2 (01:57→14:00)
[2020-02-02] MEDS: METOPROLOL TARTRATE 1 MG/ML VIAL IV PRN ×3 (01:58→05:58)
[2020-02-02 03:20] LABS: Basophils # (auto) 0.01 K/uL (0-0.2); Basophils % (auto) 0.1 %; Eosinophils # (auto) 0.33 K/uL (0-0.5); Eosinophils % (auto) 3.9 %; Hematocrit (blood only) 31.3 % (42-52); Hemoglobin 10.2 g/dL (14.0-18.0); Immature Granulocytes # (auto) 0.01 K/uL (0.00-0.02); Immature Granulocytes % (auto) 0.1 %; Lymphocytes # (auto) 0.91 K/uL (1.2-3.4); Lymphocytes % (auto) 10.8 %; Mean Corpuscular Hgb Conc 32.6 g/dL (32-36); Mean Corpuscular Volume 79.6 fL (80-100); Mean Platelet Volume 9.9 fL (7.4-10.4); Monocytes # (auto) 0.56 K/uL (0.11-0.59); Monocytes % (auto) 6.7 %; Neutrophils # (auto) 6.59 K/uL (1.4-6.5); Neutrophils % (auto) 78.4 %; Platelet Count 376 K/uL (130-400); RDW Coefficient of Variation 15.7 % (11.5-14.5); RDW Standard Deviation 46.1 fL (36.4-46.3); Red Blood Count 3.93 M/uL (4.7-6.1); White Blood Count 8.41 K/uL (4.8-10.8)
[2020-02-02 03:21] LABS: INR 1.2 (0.9-1.1); Partial Thromboplastin Ratio 1.3; Partial Thromboplastin Time 35.2 Seconds (21.0-31.0); Prothrombin Time 12.6 Seconds (9.0-12.0)
[2020-02-02 03:23] LABS: Albumin Level 2.4 gm/dl (3.4-5.0); BUN Creatinine Ratio 28.2 (10-20); Calcium 7.3 mg/dl (8.5-10.1); Creatinine Clr Calc Pharmacy 98.8 ml/min; Est GFR (African American) 110.6; Est GFR (Non-African American) 95.4; Magnesium 1.9 mg/dl (1.8-2.4); Potassium 3.5 mmol/L (3.5-5.1)
[2020-02-02 03:26] LABS: Albumin Globulin Ratio 0.6 (0.9-2); Bilirubin,Total 0.5 mg/dl (0.2-1); Globulin 3.7 gm/dl (2.5-4.0); Total Protein 6.1 gm/dl (6.4-8.2)
[2020-02-02] MEDS ORDERED: HEPARIN IV BOLUS 6,000 UNITS in SYRINGE 0 ML IV STA (03:29)
[2020-02-02] MEDS ORDERED: SODIUM CHLORIDE 0.9% 500 ML IV ONE (05:00)
[2020-02-02] MEDS ORDERED: LEVOFLOXACIN/D5W 500 MG/100 ML BAG IV SCH (05:00)
[2020-02-02] MEDS: ALBUMIN 25% 50 ML IV SCH ×2 (05:18→13:59)
[2020-02-02] MEDS: NSS + 20MEQ KCL 20 MEQ/1,000 ML BAG IV SCH ×2 (06:03→17:34)
[2020-02-02] MEDS ORDERED: RAPID SEQUENCE INDUCTION BAG ONE (06:09)
[2020-02-02] MEDS ORDERED: PHENYLEPHRINE HCL 10 MG/ML VIAL ONE (06:13)
[2020-02-02] MEDS ORDERED: PROPOFOL IV EMULSION 10 MG/ML 100 ML VIAL IV ONE (06:31)
[2020-02-02] MEDS ORDERED: PHENYLEPHRINE (STAT use only) 10MG in D5W 250 ML IV STA (06:37)
[2020-02-02] MEDS: POTASSIUM CHLORIDE / WTR 10 MEQ/100 ML PLCT IV SCH ×2 (06:45→07:45)
[2020-02-02] MEDS ORDERED: ATROPINE SULFATE 0.1 MG/ML 10ML SYR IV ONE (07:21)
--- NOTE | 2020-02-02 07:21 | XRay Report ---
XR chest 1V portable CLINICAL HISTORY: 64 years-old Male presenting with hypoxia. TECHNIQUE: Portable upright AP view of the chest was obtained. COMPARISON: 02/01/2020. FINDINGS: Atherosclerosis of the aortic arch. Cardiac silhouette borderline enlarged. Slight interval increase in patchy hazy and reticular opacities in the right upper to midlung and left lower lung. Persistent dense opacities in the right lower lung. Trace left pleural effusion suspected. No pneumothorax. Adva nced degenerative changes of the glenohumeral joints. Upper abdomen normal. IMPRESSION: 1. Interval progression of multifocal bilateral patchy infiltrates concerning for worsening multifoc al pneumonia or diffuse alveolar damage. 2. Trace left parapneumonic effusion. 3. Mild cardiomegaly. ACT 112: Negative or not required by law. Electronically signed by: Cresencio Rodrigues M.D. 02/02/2020 7:20 AM
--- NOTE | 2020-02-02 07:22 | Emergency Department Note ---
ED Visit Note I was called to the floor to evaluate this patient during a CODE BLUE. Dr. Cortes was at the bedside along with Jaison Thakur PA-C from the intensive care unit. The patient was in a rapid atrial flutter with hypoxia and questionable altered mentation. Patient was felt unstable and worsening by the primary care team. Intubation was performed under my direction by Jaison Thakur PA-C. Patient was given IV succinylcholine 100 mg and 20 mg of IV etomidate. ET tube was placed and confirmed by breath sounds bilaterally and color change capnography. Patient did have a brief run of arrhythmia felt to be either a fine V. tach or atrial flutter. Patient broke to a sinus tachycardia and was further managed by Dr. Cortes at the bedside. Please see their documentation for further management. . : Atrial flutter Qualifiers: Atrial flutter type: unspecified Qualified Code(s): I48.92 - Unspecified atrial flutter Pneumonia Qualifiers: Pneumonia type: due to unspecified organism Laterality: right Lung location: lower lobe of lung Qualified Code(s): J18.9 - Pneumonia, unspecified organism
[2020-02-02] MEDS ORDERED: MIDAZOLAM HCL 125MG/250ML D5W ONE (07:23)
[2020-02-02] MEDS ORDERED: VANCOMYCIN HCL 1,250 MG in SODIUM CHLORIDE 0.9% 250 ML IV SCH ×2 (08:00→22:00)
[2020-02-02] MEDS ORDERED: SODIUM BICARB 8.4% INJ 50 MEQ/50 ML SYR ONE (08:00)
[2020-02-02] MEDS: MIDAZOLAM HCL 125 MG/250 ML BAG IV SCH (08:00)
[2020-02-02] MEDS: fentaNYL DRIP 1,250 MCG/250 ML BAG IV SCH (08:00)
[2020-02-02] MEDS ORDERED: SODIUM BICARB 8.4% INJ 50 MEQ/50 ML SYR IV STA (08:00)
[2020-02-02] MEDS ORDERED: PIPERACILLIN/TAZOBACTAM 4.5 GM in DEXTROSE 5% 100 ML IV ONE (08:15)
[2020-02-02] MEDS ORDERED: POTASSIUM CHLORIDE 20 MEQ TABCR PO SCH (09:00)
--- NOTE | 2020-02-02 09:05 | Procedure Note ---
Procedure Note Date of Service February 02, 2020 APC: Jaison Thakur PA-C. Attending: Dr. Mcguire A time-out was completed verifying correct patient, procedure, site, positioning. Patient was evaluated and required intubation for respiratory distress with concerns for cardiac decompensation. Sedative agent used: Etomidate Paralysis agent used: Succinylcholine Emergent consent was implied given patients rapidly declining clinical status and need for airway protection. Patient had grazyna-arrest with syncopal event which appears to be cardiac in origin. Requiring escalating amounts of nasal cannula with repeat chest x-ray concerning for progression to ARDS versus diffuse pulmonary edema. Regardless, patient does appear uncomfortable. He is diaphoretic. A CODE BLUE had just been called secondary to near loss of pulses. Patient is currently a Covid-19 rule out patient in isolation. Proper donning of PPE including gown, double gl oves, N95 mask, face shield, and bouffant was performed prior to attempting procedure. The patient was prepared in the appropriate fashion. Sedation was achieved utilizing Etomidate and Succinylcholine, per Dr. Bermeo administration. The patient was easily ventilated using [id number] to achieve adequate oxygenation. A 7.5 Omani endotracheal tube was placed under Glidescope to 25 cm at the lip. The stylette was removed and balloon was inflated with 10mL of air. Appropriate Colorimetric change was appreciated. Bilateral breath sounds were heard without air sounds in the abdomen. Dr. Bermeo was present for the entire procedure. Patient tolerated the procedure well and there were no immediate complications. Coding CPT Codes Resuscitation - Resuscitation: 75497 Endotracheal Intubation, emergency ([id number]) [facility] [place]odes (Charges) Resuscitation Resuscitation: 99744 Endotracheal Intubation, emergency
--- NOTE | 2020-02-02 09:06 | Procedure Note ---
Procedure Note Date of Service February 02, 2020 Procedure: Arterial Line Placement Attending: Dr. Mcguire APC: Jaison Thakur PA-C Indication: Monitoring on Pressors Anesthesia: None Emergent consent implied in the setting of active decompensation with need for close hemodynamic monitoring in the respiratory failure patient. A time-out was completed verifying correct patient, procedure, site, positioning, and implant(s) or special equipment if applicable. Allens test was performed to ensure adequate perfusion. Patients RIGHT wrist was prepped and draped in the usual sterile fashion. Ultrasound guidance was used to aid needle placement. A 20g Arrow arterial line was introduced into the RIGHT Radial artery. Catheter was threaded, and the needle was removed with appropriate blood return. Good waveform was observed. The patient tolerated the procedure well. Confirmation of placement with ultrasound. Blood Loss: Minimal Complications: None Procedural Ultrasound Guidance: Procedure Date: 02/02/2020 Indication: ABGs, Pressors, Frequent Lab Draws Attending: Dr. Mcguire APC: Jaison Thakur PA-C Artery Identified: YES Line confirmed in Artery with ultrasound: YES Complications: NONE Patient tolerated procedure: WELL Coding CPT Codes Tubes, Drains, and Vasc Access - Tubes, Drains, and Vasc Access: [id number] Place Catheter In Artery ([id number]) [facility] [place] Procedure Codes (Charges) Tubes, Drains, and Vasc Access Procedure 1: Tubes, Drains, and Vasc Access: [id number] Place Catheter In Artery
[2020-02-02] MEDS ORDERED: PIPERACILL/TAZOBAC CONSULT ACTIVE PRN (09:11)
[2020-02-02] MEDS ORDERED: PIPERACILLIN/TAZOBACTAM 4.5 GM in DEXTROSE 5% 100 ML IV SCH (09:15)
[2020-02-02 10:21] LABS: Basophils # (auto) 0.01 K/uL (0-0.2); Basophils % (auto) 0.1 %; Eosinophils # (auto) 0.08 K/uL (0-0.5); Eosinophils % (auto) 1.1 %; Hematocrit (blood only) 27.2 % (42-52); Hemoglobin 8.9 g/dL (14.0-18.0); Immature Granulocytes # (auto) 0.02 K/uL (0.00-0.02); Immature Granulocytes % (auto) 0.3 %; Lymphocytes # (auto) 1.17 K/uL (1.2-3.4); Lymphocytes % (auto) 16.7 %; Mean Corpuscular Hemoglobin 26.1 pg (25-34); Mean Corpuscular Volume 79.8 fL (80-100); Mean Platelet Volume 9.8 fL (7.4-10.4); Monocytes # (auto) 0.54 K/uL (0.11-0.59); Monocytes % (auto) 7.7 %; Neutrophils # (auto) 5.17 K/uL (1.4-6.5); Neutrophils % (auto) 74.1 %; Platelet Count 317 K/uL (130-400); RDW Standard Deviation 46.7 fL (36.4-46.3); Red Blood Count 3.41 M/uL (4.7-6.1); White Blood Count 6.99 K/uL (4.8-10.8)
[2020-02-02 10:25] LABS: Mean Corpuscular Hgb Conc 32.7 g/dL (32-36)
[2020-02-02 10:39] LABS: Albumin Level 2.1 gm/dl (3.4-5.0); BUN Creatinine Ratio 23.4 (10-20); Calcium 6.7 mg/dl (8.5-10.1); Creatinine Clr Calc Pharmacy 83.8 ml/min; Est GFR (African American) 101.5; Est GFR (Non-African American) 87.6; Potassium 3.7 mmol/L (3.5-5.1)
[2020-02-02 10:42] LABS: Albumin Globulin Ratio 0.7 (0.9-2); Bilirubin,Total 0.8 mg/dl (0.2-1); Globulin 3.2 gm/dl (2.5-4.0); Total Protein 5.3 gm/dl (6.4-8.2)
[2020-02-02 10:50] LABS: D Dimer 4000 ug/L FEU (0-500)
--- NOTE | 2020-02-02 10:53 | XRay Report ---
XR chest 1V portable CLINICAL HISTORY: 64 years-old Male presenting with intubation. TECHNIQUE: Portable upright AP view of the chest was obtained. COMPARISON: 02/02/2020. FINDINGS: Interval intubation. The endotracheal tube terminates in the midthoracic trachea approximately 5 cm f rom the lashon. Nasogastric tube descends below the diaphragm terminating in the gastric antrum, side hole also within the stomach. Numerous overlying external leads to grating image quality. Left subcl mark central venous catheter new from prior and terminates in the mid SVC. Atherosclerosis of the aortic arch. Cardiac silhouette mildly enlarged. Mild pulmonary vascular promi nence suspected. Extensive bilateral pulmonary opacities with a central and basilar predominance. Thi s appears to affect the right lung base to a greater degree. Suspected layering right pleural effusio n. Trace left pleural effusion may also be present. Advanced degenerative changes of the left glenohu meral joint. Upper abdomen normal. IMPRESSION: 1. Appropriately positioned lines and tubes. 2. Interval increase in right basilar opacity possibly relating to the presence of an increasing lay ering right pleural effusion. 3. Multifocal bilateral central basilar predominant infiltrates could indicate diffuse alveolar cachorro ge, pulmonary edema, or multifocal pneumonia. 4. Possible trace underlying left pleural effusion. 5. Cardiomegaly with some degree of volume overload suspected. ACT 112: Negative or not required by law. Electronically signed by: Cresencio Rodrgiues M.D. 02/02/2020 10:51 AM
[2020-02-02] MEDS ORDERED: STAT IV Infusion **Titration per Protocol STA (11:09)
[2020-02-02] MEDS ORDERED: FENTANYL BOLUS FROM BAG IV PRN (11:09)
[2020-02-02] MEDS ORDERED: PROPOFOL BOLUS FROM BAG IV PRN (11:09)
[2020-02-02] MEDS ORDERED: MIDAZOLAM BOLUS FROM BAG IV PRN (11:09)
--- NOTE | 2020-02-02 11:14 | Procedure Note ---
Procedure Note Date of Service February 02, 2020 CENTRAL LINE PROCEDURE NOTE: Procedure: Central Line Placement Provider: Wil Mcguire MD Indication: Central Drug Administration, Poor Venous Access, Multiple Lab Draws Necessary, etc. Anesthesia: 5 mL lidocaine 1% Site: Left subclavian Procedure was emergent. Patient was intubated and unable to provide consent. No family immediately available A time-out was completed verifying correct patient, procedure, site, positioning, and implants(s) or special equipment if applicable. Patients left subclavian area was cleansed and draped in the typical sterile fashion using Chloraprep. After adequate anesthetization was achieved, the subclavian vein was cannulated using an introducer needle on a syringe. Good venous blood return was maintained prior to removal of syringe from introducer needle. Using Seldinger Technique, a guide wire was advanced through the introducer needle without resistance. The introducer needle was removed and ultrasound images were obtained of the guide wire within the Internal Jugular Vein and saved to the patients medical record. A small incision was made in penetrating fashion at the guide wire insertion site utilizing an 11 blade scalpel. The dilator was advanced to the vessel without resistance. The dilator was exchanged for the triple lumen catheter which was advanced into the vessel without resistance. The guide wire was removed intact from the catheter without issue. Claves were placed on each catheter tip with confirmation of good blood flow from each lumen. Each port was easily flushed with sterile saline. The catheter was sutured in place. BioPatch was applied to the catheter and a sterile Tegaderm dressing was applied over the catheter with careful attention to sterility. Patient tolerated procedure well. No immediate complications were met. Post procedure x-ray was completed, placement was appropriate and no pneumot horax was noted. Coding CPT Codes Tubes, Drains, and Vasc Access - Tubes, Drains, and Vasc Access: [id number] Place catheter in vein superior or inferior vena cava ([id number]) [facility] [place] Procedure Codes (Charges) Tubes, Drains, and Vasc Access Procedure 1: Tubes, Drains, and Vasc Access: [id number] Place catheter in vein superior or inferior vena cava
--- NOTE | 2020-02-02 11:16 | Procedure Note ---
Procedure Note Date of Service February 02, 2020 ARTERIAL LINE PROCEDURE NOTE: Procedure: Arterial Line Placement Provider: Wil Mcguire MD Indication: Monitoring on Pressors Anesthesia: None Procedure was emergent. Patient is intubated and sedated and unable to provide consent. No family immediately available. A time-out was completed verifying correct patient, procedure, site, positioning, and implant(s) or special equipment if applicable. Allens test was performed to ensure adequate perfusion. Patients left wrist was prepped and draped in the usual sterile fashion. Ultrasound guidance was used to aid needle placement. A 20g Arrow arterial line was introduced into the left radial artery. Catheter was threaded, and the needle was removed with appropriate blood return. Good waveform was observed. The patient tolerated the procedure well. Imaging was not saved due to urgency of the procedure. Blood Loss: Minimal Complications: None Coding CPT Codes Tubes, Drains, and Vasc Access - Tubes, Drains, and Vasc Access: [id number] Insertion Catheter, Artery ([id number]) Tubes, Drains, and Vasc Access - Tubes, Drains, and Vasc Access: [id number] Ultrasound Guidance For Vascular ([id number]) [facility] [place] Procedure Codes (Charges) Tubes, Drains, and Vasc Access Procedure 1: Tubes, Drains, and Vasc Access: [id number] Insertion Catheter, Artery Procedure 2: Tubes, Drains, and Vasc Access: [id number] Ultrasound Guidance For Vascular
[2020-02-02] MEDS ORDERED: CALCIUM CHLORIDE 10% 1,000 MG in SODIUM CHLORIDE 0.9% 50 ML IV STA (11:19)
--- NOTE | 2020-02-02 11:20 | Critical Care Consultation ---
Date of Consultation February 02, 2020 Assessment & Plan (1) Hypoxemia: Impression: 64-year-old male with history of rheumatoid arthritis admitted with tachycardia, new onset cardiomyopathy, and hypoxemic respiratory failure likely secondary to acute pulmonary edema. My clinical suspicion for coronavirus infection is quite low however he is already technically a person under investigation is the test is been sent. We will continue isolation until his PCR test comes back, hopefully within the next 24 to 48 hours. Recommendations: 1. Neurologic: Continue deep sedation as the patient is on inverse ratio ventilation. Continue propofol, Versed, and fentanyl. 2. Cardiovascular: Atrial flutter/fibrillation with rapid ventricular response. Seen by cardiology and ALE performed. Cardioverted. We will continue anticoagulation. Add low-dose carvedilol. EF is markedly reduced. Will need work-up for cardiomyopathy once stable. Transduce CVP and consider diuresis if he remains hemodynamically stable. Will discontinue metoprolol and diltiazem. 3. Pulmonary: Acute hypoxemic respiratory failure. Chest x-ray appears consistent with fluid overload and pulmonary edema. Procalcitonin is been negative. Continue empiric antibiotics for now but will adjust based on clinical response and culture data. Currently on inverse ratio ventilation. As oxygenation improves, will continue to wean PEEP and FiO2 and take out the inspiratory pause. The patient does apparently have a history of significant cervical spine disease. He was moving all extremities after intubation. 4. GI: Keep n.p.o. for now. We will add H2 lois for prophylaxis 5. Renal: No current issues. Continue electrolyte replacement as diuresis is initiated. Patient did have evidence of a metabolic acidosis and did receive bicarb prior to transfer to the ICU. We will continue to follow for now. 6. ID: Currently on Zosyn. Likely discontinue based on culture data depending on clinical course over the next 24 to 48 hours. Patient does not have significant risk factors for coronavirus. His bio fire was positive for rhinovirus. Supportive care warranted. No therapies indicated 7. Heme-onc: History of rheumatoid arthritis. Anemia: Labs are currently pending. No indication for transfusion currently. We will continue to follow. We will continue full anticoagulation given uncertain duration of the patient's atrial flutter/fibrillation. Lovenox okay at 1 mg/kg every 12 hours given nor mal renal function. Will follow platelets. 8. Homelessness: No family or surrogate decision makers available. Continue current care. Patient is critically ill at this point time. A total of 185 minutes spent in evaluation management stabilization of this patient excluding procedures. (2) Congestive heart failure: (3) Pulmonary edema: History of Present Illness Attending Physician: Abisai Arriaga History of Present Illness Asked by the hospitalist to assist in management of this patient. I was called by the critical care DONNIE around 6:00 this morning. This homeless male with a history of rheumatoid arthritis is been admitted with shortness of breath and tachycardia. He has no exposures to anyone with diagnosed COVID illness and is essentially homeless in and out of hotel rooms. He has not traveled to any endemic areas. Homelessness is not a risk factor for coronavirus infection. Nevertheless he was placed in isolation. He deteriorated this morning and was given additional metoprolol and diltiazem. This resulted in cardiac arrest. Those details are not entirely clear however the patient was intubated. At that time I arrived upstairs. We continue to resuscitate the patient. I performed a limited critical care echocardiogram which revealed markedly decreased left ventricular function. Central line was placed. I adjusted his ventilator to an GIL ratio of approximately 1-1 and performed recruitment maneuver which was successful in improving his oxygen saturations. Pressors were adjusted. The right ventricle appeared slightly underfilled therefore additional fluids were administered. We adjusted ventilator settings and once we were able to maintain an adequate blood pressure heart rate and oxygen saturation he was moved to the intensive care unit using respiratory precautions. I evaluated the patient with Dr. Marquez from cardiology. ALE was performed which confirmed decreased ejection fraction. The left atrial appendage was cleared and the patient was DC cardioverted and is now in sinus. He is now off pressors. Of note his BNP was markedly elevated. Bio fire panel was not checked however influenza swabs were negative and procalcitonin was negative x2. Allergies Allergy/AdvReac Type Severity Reaction Status Date / Time No Known Drug Allergies Allergy Unknown NONE Verified 02/01/20 20:33 Home Medications Home Medications Medication Instructions Recorded Confirmed Type diclofenac sodium 50 mg PO BID PRN 08/12/18 02/01/20 History etanercept [Enbrel] 50 mg SUBCUT WK 08/12/18 02/01/20 History ferrous sulfate [iron] 325 mg PO QPM 08/12/18 02/01/20 History multivitamin 1 tab PO QPM 08/12/18 02/01/20 History naproxen 500 mg PO BID PRN 08/12/18 02/01/20 History potassium chloride [Klor-Con M20] 20 meq PO QAM 08/12/18 02/01/20 History ropinirole 1 mg PO BID 02/01/20 02/01/20 History terazosin 1 mg PO BID 02/01/20 02/01/20 History tramadol 50 mg PO Q8H PRN 02/01/20 02/01/20 History Patient History Medical History Anemia BPH (benign prostatic hyperplasia) Hx of fracture of leg left - not current Hypertension Restless leg syndrome Rheumatoid arthritis Urinary frequency r/t prostate Surgical History History of tonsillectomy History of tooth extraction Family History Father Family history of diabetes mellitus Social History Preferred Language: [place] Communication Ability: Unable Welding Rod Coater Required: No Beliefs That Will Affect Care: None Current Living Situation: Homeless Other Information That Helps Us Care for You: No Feels Safe at Home: No Is there a partner from a previous relationship who is making you feel unsafe now?: No Any Concerns about Your Family Situation: No Would You Like to Speak to Someone About Your Situation: No Smoking Status: Never smoker Second Hand Exposure: No ; Hx Alcohol Use: No Hx Substance Use: No Review of Systems Review of Systems: Unobtainable due to endotracheal tube Physical Exam Constitutional: + ill appearing, + obese and + mechanically ventilated Eyes: PERRL, conjunctivae normal, anicteric sclerae Neck: trachea midline, no thyromegaly Respiratory: Coarse breath sounds bilaterally with crackles. No wheezing Cardiovascular: Rate/Rhythm: + tachycardic Heart Sounds: normal S1 and normal S2 Appears to be in a flutter/fib Gastrointestinal (Abdomen): normal bowel sounds, soft, nontender, no hepatosplenomegaly Musculoskeletal: Some contractures noted in the lower extremities and arms. Changes consistent with rheumatoid arthritis Skin: No skin rashes or lesions identified. Results & Data ([facility]) Vital Signs (Past 12 Hours) Vital Signs Temp Pulse Pulse Resp BP BP Pulse Ox 02/02/20 08:06 28 H 02/02/20 07:13 122 H 30 H 98 02/02/20 05:58 145 H 121/94 02/02/20 05:48 145 H 133/86 02/02/20 03:27 36.6 C 135 H 18 114/95 94 02/02/20 01:58 145 H 114/95 02/01/20 23:59 151 H Laboratory Results 02/02/20 10:07 02/02/20 10:07 Flu swabs negative Procalcitonin negative Bio fire was not assessed Diagnostic Findings Chest x-ray was independently reviewed. There are bilateral central pulmonary infiltrates with pulmonary vascular congestion and cardiomegaly. Coding Level of Care Code Critical Care 1st 30-74 mins Diagnoses Hypoxemia R09.02 Congestive heart failure I50.9 Pulmonary edema J81.1 Time Spent (min) 185 Comment 185 minutes critical care time exclusive of procedures
[2020-02-02] MEDS: ALBUT/IPRATROP 3MG/0.5MG NEB 3 ML VIAL NEB SCH (11:35)
[2020-02-02 11:48] LABS: Adenovirus PCR Not Detected (NotDetected); Coronavirus 229E PCR Not Detected (NotDetected); Coronavirus HKU1 PCR Not Detected (NotDetected); Coronavirus NL63 PCR Not Detected (NotDetected); Coronavirus OC43PCR Not Detected (NotDetected); Human Metapneumovirus PCR Not Detected (NotDetected)
[2020-02-02 11:49] LABS: Bordetella parapertussis PCR Not Detected (NotDetected); Bordetella pertussis PCR Not Detected (NotDetected); Chlamydia pneumoniae PCR Not Detected (NotDetected); Influenza A PCR Not Detected (NotDetected); Influenza B PCR Not Detected (NotDetected); Mycoplasma pneumoniae PCR Not Detected (NotDetected); Parainfluenza Virus 1 PCR Not Detected (NotDetected); Parainfluenza Virus 2 PCR Not Detected (NotDetected); Parainfluenza Virus 3 PCR Not Detected (NotDetected); Parainfluenza Virus 4 PCR Not Detected (NotDetected); Respiratory Syncytial VirusPCR Not Detected (NotDetected)
[2020-02-02 11:50] LABS: Rhinovirus/Enterovirus PCR DETECTED (NotDetected)
[2020-02-02 12:14] LABS: iSTAT Art Bld Gas pCO2 Correct 39 mmHg (35-46); iSTAT Art Bld Gas pH Corrected 7.262 (7.35-7.45); iSTAT Arterial Blood Gas HCO3 17 meg/L (19-24); iSTAT Arterial Blood Gas pCO2 39 mmHg (35-46); iSTAT Arterial Blood Gas pH 7.26 (7.35-7.45); iSTAT Arterial Blood Gas pO2 84 mmHg (80-95); iSTAT Arterial Blood Gas pO2 C 84; iSTAT Carbon Dioxide 19 mmol/L (24-31); iSTAT FiO2 100 %; iSTAT Hematocrit 28 % (42-52); iSTAT Hemoglobin 9.5 g/dl (14.0-18.0); iSTAT Potassium 3.9 mmol/L (3.3-5.0); iSTAT Site Art Line; iSTAT Sodium 139 mmol/L (135-144)
[2020-02-02] MEDS: PHENYLEPHRINE HCL 20 MG in DEXTROSE 5% 500 ML IV SCH ×2 (12:52→18:28)
[2020-02-02] MEDS ORDERED: FUROSEMIDE 40 MG in SYRINGE 0 ML IV ONE (13:00)
--- NOTE | 2020-02-02 13:07 | XCELERA ---
[id number] [id number]
--- NOTE | 2020-02-02 13:46 | Pharmacy Report ---
Pharmacy Abx Initial Consult - Date of Service February 02, 2020 - Pharmacy Dosing Scope Date of Consult: 01/31 Consultation requested by: Dr. Guerrero Pharmacy is consulted to initiate vanc/zosyn IV/PO dosing therapy, order appropriate labs and adjust drug dose/frequency. - Subjective The patient is a 64 year old M admitted on 02/01/20 20:30. - Objective Height: 5 ft 10 in Weight: 85.729 kg Vital Signs (Past 12hrs): Vital Signs Temp Pulse Pulse Resp BP BP Pulse Ox 02/02/20 11:45 75 28 H 100 02/02/20 08:06 28 H 02/02/20 07:13 122 H 30 H 98 02/02/20 05:58 145 H 121/94 02/02/20 05:48 145 H 133/86 02/02/20 03:27 36.6 C 135 H 18 114/95 94 02/02/20 01:58 145 H 114/95 Lab Results (24hrs): Laboratory Tests (24 Hours) 02/02/20 02/02/20 02/02/20 10:07 10:07 10:07 WBC 6.99 Neut # (Auto) 5.17 Creatinine 0.92 Est Cr Clr Drug Dosing 83.8 Procalcitonin 0.41 02/02/20 02/02/20 02/02/20 06:22 02:15 02:15 WBC 8.41 Neut # (Auto) 6.59 H Creatinine 0.78 Est Cr Clr Drug Dosing 98.8 Procalcitonin 0.09 02/01/20 02/01/20 02/01/20 17:51 17:51 17:51 WBC 7.80 Neut # (Auto) 5.47 Creatinine 0.83 Est Cr Clr Drug Dosing 95.8 Procalcitonin 0.11 Micro Results: 02/01/20 17:51 Aerobic Blood Culture - Pending Blood Anaerobic Blood Culture - Pending 02/01/20 17:36 Aerobic Blood Culture - Pending Blood Anaerobic Blood Culture - Pending - Assessment & Plan Assessment 64 year old M with PMH including rheumatoid arthritis, on enbrel (reportedly hasn't taken for aprox. 6 weeks), restless leg syndrome, iron deficiency presented to ED with cough, night sweats, shortness of breath. Not aware of any sick contacts, no recent travels, COVID19 testing is pending however. BIOFIRE positive for rhinovirus. Found to be in atrial flutter in the ED. CXR with "Multifocal bilateral central basilar predominant infiltrates could indicate diffuse alveolar damage, pulmonary edema, or multifocal pneumonia". Patient received a dose of ceftiaxone, doxycycline in the emergency department. Started Zosyn, Vanc, Levofloxacin on admission. Patient had rapid response event this morning, with code blue called. Patient was intubated, started on pressors and transferred to ICU now continuing zosyn, vancomycin. MRSA nasal swab pending. Procalcitonin initially 0.11, lactic acid 1.3, normal white count, afebrile. Patient has converted from a. flutter to normal sinus, pressors off. Plan Vancomycin IV * Estimated PK Parameters: Vd 0.7 L/kg, Maxi 0.073 hr-1, t1/2 9.4 hr * Loading dose: 2000 mg (23 mg/kg) * Maintenance dose: 1250 mg IV (14.4 mg/kg) every 12 hours * Goal trough level 15-20 mcg/mL * Trough ordered for 02/02 @2130 Piperacillin/tazobactam * 4.5 g bolus administered over 30 minutes, then 4.5 g IV extended infusion every 8 hours for CrCl greater than 20 mL/min * Aggressive dosing selected due to critically ill status Pharmacy will continue to follow and will adjust dose/frequency as necessary. Thank you.
[2020-02-02] MEDS: guaiFENesin 600 MG TABCR PO SCH (13:59)
[2020-02-02] MEDS: propofoL 1,000 MG/100 ML VIAL IV SCH (14:35)
--- NOTE | 2020-02-02 15:01 | Cardiology Consultation ---
Date of Consultation February 02, 2020 Assessment & Plan (1) Atrial flutter: Patient's presenting rhythm was atrial flutter. Due to difficulty with rate control and his pulmonary decompensation he did undergo transesophageal echocardiogram and cardioversion to sinus rhythm. He did have some dilation of the right atrium. Unclear how long he has had this arrhythmia. Certainly prolonged periods of atrial flutter with high ventricular rates could precipitate the cardiomyopathy identified on echocardiography today. He has a history of hypertension and newly diagnosed cardiomyopathy which placed him in a category of patients who should undergo systemic anticoagulation. This can be accomplished with heparin currently and oral agents once he is extubated. His renal function is normal and he would be a good candidate for any of the novel oral anticoagulants or warfarin. He will require initiation of beta-blockade for his cardiomyopathy. This will also serve as a rate control agent. However, he may benefit from catheter based therapy as primary therapy for what appears to be a typical right atrial flutter. (2) Cardiomyopathy: Unclear etiology. Cardiac biomarkers at the time of presentation were normal. No recent ischemic event. The global nature of his LV dysfunction also suggests a nonischemic source. His presentation involved a rapid ventricular rate which over time could precipitate this form of cardiomyopathy. Think we wi ll start him on typical therapy with beta-blockers and Alhaji inhibitors when tolerated. We will make sure that he does not have additional episodes of rapid ventricular rates and reassess LV function in a few weeks. Do not believe he requires an evaluation for ischemic heart disease at this time. Once he is extubated and can provide some additional history we will look into other symptoms which could be consistent with coronary artery disease. (3) Pulmonary edema: It is very likely that his presenting symptoms were related to pulmonary edema rather than infectious pulmonary process. He has some plethora of the IVC. His N terminal proBNP was elevated. He has known LV dysfunction. Cautious diuresis may be more beneficial in this regard an additional fluid administration. History of Present Illness Reason for Consultation: Atrial flutter, dyspnea. Requesting Physician: Kalpesh Attending Physician: Abisai Arriaga History of Present Illness The patient is a 64-year-old gentleman who presented to the [facility] Emergency room with symptoms cough, diaphoresis, shortness of breath and fatigue. The patient is currently intubated and sedated the history was therefore obtained from both the chart and interview with other providers. It seems the symptoms have been present in some form for several days but wors ened recently. He was initially diagnosed with pneumonia and started on treatment but decompensated shortly after admission required transfer to the intensive care unit with intubation. He was also noted at the time of admission to have atrial flutter and associated high ventricular rates. Patient was administered rate control agents in the form diltiazem and metoprolol. He also received a dose adenosine. He has failed to significantly slow the ventricular rate. Allergies Allergy/AdvReac Type Severity Reaction Status Date / Time No Known Drug Allergies Allergy Unknown NONE Verified 02/01/20 20:33 Home Medications Home Medications Medication Instructions Recorded Confirmed Type diclofenac sodium 50 mg PO BID PRN 08/12/18 02/01/20 History etanercept [Enbrel] 50 mg SUBCUT WK 08/12/18 02/01/20 History ferrous sulfate [iron] 325 mg PO QPM 08/12/18 02/01/20 History multivitamin 1 tab PO QPM 08/12/18 02/01/20 History naproxen 500 mg PO BID PRN 08/12/18 02/01/20 History potassium chloride [Klor-Con M20] 20 meq PO QAM 08/12/18 02/01/20 History ropinirole 1 mg PO BID 02/01/20 02/01/20 History terazosin 1 mg PO BID 02/01/20 02/01/20 History tramadol 50 mg PO Q8H PRN 02/01/20 02/01/20 History Patient History Medical History Anemia BPH (benign prostatic hyperplasia) Hx of fracture of leg left - not current Hypertension Restless leg syndrome Rheumatoid arthritis Urinary frequency r/t prostate Surgical History History of tonsillectomy History of tooth extraction Family History Father Family history of diabetes mellitus Social History Preferred Language: Tristanian Communication Ability: Unable Mercury Purifier Required: No Beliefs That Will Affect Care: None Current Living Situation: Homeless Other Information That Helps Us Care for You: No Feels Safe at Home: No Is there a partner from a previous relationship who is making you feel unsafe now?: No Any Concerns about Your Family Situation: No Wo uld You Like to Speak to Someone About Your Situation: No Smoking Status: Never smoker Second Hand Exposure: No ; Hx Alcohol Use: No Hx Substance Use: No Review of Systems Review of Systems: Unobtainable due to endotracheal tube Physical Exam Physical Exam: Patient is intubated and sedated. HEENT: The sclerae are anicteric. Neuro: He could not participate in the exam. Neck: Patient's neck is supple. He has palpable carotid pulses bilaterally without bruits on auscultation. There is no evidence of jugular venous distention. The thyroid is not enlarged. Lungs: Some crackles throughout most lung underwood. No expiratory wheezing. Cardiac: Heart demonstrates a fast rate and regular rhythm. Normal S1 and S2. No murmurs on examination. Pulses: The patient has palpable radial pulses bilaterally that are equal in intensity Extremities: There was no evidence of hypoperfusion. There is no cyanosis or clubbing. Trace edema. Skin: I did not appreciate any rashes on examination today. Results & Data ([facility]) Vital Signs (Past 12 Hours) Vital Signs Temp Pulse Pulse Resp BP BP Pulse Ox 02/02/20 14:00 74 85 L 02/02/20 13:35 22 02/02/20 13:10 75 28 H 100 02/02/20 13:00 76 100 02/02/20 12:01 75 95/61 L 100 02/02/20 11:45 75 28 H 100 02/02/20 11:30 75 92/63 L 100 02/02/20 11:02 72 125/79 100 02/02/20 11:00 101 H 100 02/02/20 10:30 144 H 98/67 L 100 02/02/20 10:00 143 H 96/71 L 100 02/02/20 08:06 28 H 02/02/20 07:13 122 H 30 H 98 02/02/20 05:58 145 H 121/94 02/02/20 05:48 145 H 133/86 02/02/20 03:27 36.6 C 135 H 18 114/95 94 Laboratory Results Abnormal Lab Results 02/01/20 02/01/20 02/01/20 17:36 17:41 17:51 WBC 7.80 RBC 4.57 L Hgb 11.7 L POC Hgb Hct 36.3 L POC Hct MCV 79.4 L MCH 25.6 MCHC 32.2 RDW Std Deviation 45.8 RDW Coeff of Jayjay 15.8 H Plt Count 476 H MPV 9.9 Immature Gran % (Auto) 0.3 Neut % (Auto) 70.0 Lymph % (Auto) 17.1 [place] % (Auto) 7.2 Eos % (Auto) 5.0 Baso % (Auto) 0.4 Immature Gran # (Auto) 0.02 Neut # (Auto) 5.47 Lymph # (Auto) 1.33 [place] # (Auto) 0.56 Eos # (Auto) 0.39 Baso # (Auto) 0.03 PT INR APTT PTT Ratio D-Dimer Sample Site POC pH POC pCO2 POC pO2 POC HCO3 POC Total CO2 POC Base Excess ABG pH (Temp Correct) ABG pCO2 (Temp Corrct POC ABG pO2 at Pt Temp Royce Test O2 Delivery Device POC O2 Rate Minute Ventilation POC FiO2 Tidal Volume PEEP POC Sodium Sodium POC Potassium Potassium Chloride Carbon Dioxide Anion Gap BUN Creatinine Est Cr Clr Drug Dosing Est GFR ( Amer) Est GFR (Non-Af Amer) BUN/Creatinine Ratio Glucose Lactate 1.3 Calcium Phosphorus Magnesium Total Bilirubin AST ALT Alkaline Phosphatase Lactate Dehydrogenase Troponin I NT-Pro-B Natriuret Pep Total Protein Albumin Globulin Albumin/Globulin Ratio Procalcitonin Urine Color Urine Appearance Urine pH Ur Specific [place] Urine Protein Urine Glucose (UA) Urine Ketones Urine Blood Urine Nitrite Urine Bilirubin Urine Urobilinogen Ur Leukocyte Esterase Nasal Screen MRSA (PCR) Adenovirus (PCR) B. pertussis DNA (PCR) B.parapertussis DNA PCR C. pneumoniae DNA (PCR) Coronavirus OC43 (PCR) Coronavirus HKU1 (PCR) Coronavirus 229E (PCR) Coronavirus NL63 (PCR) Human Metapneumovir PCR Influenza Type A (PCR) Neg for Influ A Influenza Type B (PCR) Neg for Influ B M. pneumoniae (PCR) Parainfluenza 1 (PCR) Parainfluenza 2 (PCR) Parainfluenza 3 (PCR) Parainfluenza 4 (PCR) RSV (PCR) Entero/Rhino (PCR) 02/01/20 02/01/20 02/01/20 17:51 17:51 17:51 WBC RBC Hgb POC Hgb Hct POC Hct MCV MCH MCHC RDW Std Deviation RDW Coeff of Jayjay Plt Count MPV Immature Gran % (Auto) Neut % (Auto) Lymph % (Auto) [place] % (Auto) Eos % (Auto) Baso % (Auto) Immature Gran # (Auto) Neut # (Auto) Lymph # (Auto) [place] # (Auto) Eos # (Auto) Baso # (Auto) PT 12.3 H INR 1.2 H APTT 28.0 PTT Ratio 1.0 D-Dimer Sample Site POC pH POC pCO2 POC pO2 POC HCO3 POC Total CO2 POC Base Excess ABG pH (Temp Correct) ABG pCO2 (Temp Corrct POC ABG pO2 at Pt Temp Royce Test O2 Delivery Device POC O2 Rate Minute Ventilation POC FiO2 Tidal Volume PEEP POC Sodium Sodium 138 POC Potassium Potassium 3.2 L Chloride 107 Carbon Dioxide 25 Anion Gap 6.0 BUN 25 H Creatinine 0.83 Est Cr Clr Drug Dosing 95.8 Est GFR ( Amer) 107.8 Est GFR (Non-Af Amer) 93.0 BUN/Creatinine Ratio 30.2 H Glucose 112 H Lactate Calcium 8.2 L Phosphorus 2.8 Magnesium 2.1 Total Bilirubin 0.4 AST 22 ALT 28 Alkaline Phosphatase 101 Lactate Dehydrogenase Troponin I < 0.015 NT-Pro-B Natriuret Pep Total Protein 7.0 Albumin 2.6 L Globulin 4.4 H Albumin/Globulin Ratio 0.6 L Procalcitonin 0.11 Urine Color Urine Appearance Urine pH Ur Specific [place] Urine Protein Urine Glucose (UA) Urine Ketones Urine Blood Urine Nitrite Urine Bilirubin Urine Urobilinogen Ur Leukocyte Esterase Nasal Screen MRSA (PCR) Adenovirus (PCR) B. pertussis DNA (PCR) B.parapertussis DNA PCR C. pneumoniae DNA (PCR) Coronavirus OC43 (PCR) Coronavirus HKU1 (PCR) Coronavirus 229E (PCR) Coronavirus NL63 (PCR) Human Metapneumovir PCR Influenza Type A (PCR) Influenza Type B (PCR) M. pneumoniae (PCR) Parainfluenza 1 (PCR) Parainfluenza 2 (PCR) Parainfluenza 3 (PCR) Parainfluenza 4 (PCR) RSV (PCR) Entero/Rhino (PCR) 02/01/20 02/02/20 02/02/20 19:40 02:15 02:15 WBC 8.41 RBC 3.93 L Hgb 10.2 L POC Hgb Hct 31.3 L POC Hct MCV 79.6 L MCH 26.0 MCHC 32.6 RDW Std Deviation 46.1 RDW Coeff of Jayjay 15.7 H Plt Count 376 MPV 9.9 Immature Gran % (Auto) 0.1 Neut % (Auto) 78.4 Lymph % (Auto) 10.8 [place] % (Auto) 6.7 Eos % (Auto) 3.9 Baso % (Auto) 0.1 Immature Gran # (Auto) 0.01 Neut # (Auto) 6.59 H Lymph # (Auto) 0.91 L [place] # (Auto) 0.56 Eos # (Auto) 0.33 Baso # (Auto) 0.01 PT 12.6 H INR 1.2 H APTT 35.2 H PTT Ratio 1.3 D-Dimer Sample Site POC pH POC pCO2 POC pO2 POC HCO3 POC Total CO2 POC Base Excess ABG pH (Temp Correct) ABG pCO2 (Temp Corrct POC ABG pO2 at Pt Temp Royce Test O2 Delivery Device POC O2 Rate Minute Ventilation POC FiO2 Tidal Volume PEEP POC Sodium Sodium POC Potassium Potassium Chloride Carbon Dioxide Anion Gap BUN Creatinine Est Cr Clr Drug Dosing Est GFR ( Amer) Est GFR (Non-Af Amer) BUN/Creatinine Ratio Glucose Lactate Calcium Phosphorus Magnesium Total Bilirubin AST ALT Alkaline Phosphatase Lactate Dehydrogenase Troponin I NT-Pro-B Natriuret Pep Total Protein Albumin Globulin Albumin/Globulin Ratio Procalcitonin Urine Color Yellow Urine Appearance Clear Urine pH 6.5 Ur Specific [place] 1.021 Urine Protein Negative Urine Glucose (UA) Negative Urine Ketones Negative Urine Blood Negative Urine Nitrite Negative Urine Bilirubin Negative Urine Urobilinogen Negative Ur Leukocyte Esterase Negative Nasal Screen MRSA (PCR) Adenovirus (PCR) B. pertussis DNA (PCR) B.parapertussis DNA PCR C. pneumoniae DNA (PCR) Coronavirus OC43 (PCR) Coronavirus HKU1 (PCR) Coronavirus 229E (PCR) Coronavirus NL63 (PCR) Human Metapneumovir PCR Influenza Type A (PCR) Influenza Type B (PCR) M. pneumoniae (PCR) Parainfluenza 1 (PCR) Parainfluenza 2 (PCR) Parainfluenza 3 (PCR) Parainfluenza 4 (PCR) RSV (PCR) Entero/Rhino (PCR) 02/02/20 02/02/20 02/02/20 02:15 06:21 06:21 WBC RBC Hgb POC Hgb Hct POC Hct MCV MCH MCHC RDW Std Deviation RDW Coeff of Jayjay Plt Count MPV Immature Gran % (Auto) Neut % (Auto) Lymph % (Auto) [place] % (Auto) Eos % (Auto) Baso % (Auto) Immature Gran # (Auto) Neut # (Auto) Lymph # (Auto) [place] # (Auto) Eos # (Auto) Baso # (Auto) PT INR APTT PTT Ratio D-Dimer Sample Site POC pH POC pCO2 POC pO2 POC HCO3 POC Total CO2 POC Base Excess ABG pH (Temp Correct) ABG pCO2 (Temp Corrct POC ABG pO2 at Pt Temp [place]ce Test O2 Delivery Device POC O2 Rate Minute Ventilation POC FiO2 Tidal Volume PEEP POC Sodium Sodium 139 POC Potassium Potassium 3.5 Chloride 113 H Carbon Dioxide 21 Anion Gap 5.0 BUN 22 H Creatinine 0.78 Est Cr Clr Drug Dosing 98.8 Est GFR ( Amer) 110.6 Est GFR (Non-Af Amer) 95.4 BUN/Creatinine Ratio 28.2 H Glucose 128 H Lactate Calcium 7.3 L Phosphorus Magnesium 1.9 Total Bilirubin 0.5 AST 21 ALT 24 Alkaline Phosphatase 107 Lactate Dehydrogenase Troponin I < 0.015 NT-Pro-B Natriuret Pep 5993 H Total Protein 6.1 L Albumin 2.4 L Globulin 3.7 Albumin/Globulin Ratio 0.6 L Procalcitonin Urine Color Urine Appearance Urine pH Ur Specific [place] Urine Protein Urine Glucose (UA) Urine Ketones Urine Blood Urine Nitrite Urine Bilirubin Urine Urobilinogen Ur Leukocyte Esterase Nasal Screen MRSA (PCR) Adenovirus (PCR) B. pertussis DNA (PCR) B.parapertussis DNA PCR C. pneumoniae DNA (PCR) Coronavirus OC43 (PCR) Coronavirus HKU1 (PCR) Coronavirus 229E (PCR) Coronavirus NL63 (PCR) Human Metapneumovir PCR Influenza Type A (PCR) Influenza Type B (PCR) M. pneumoniae (PCR) Parainfluenza 1 (PCR) Parainfluenza 2 (PCR) Parainfluenza 3 (PCR) Parainfluenza 4 (PCR) RSV (PCR) Entero/Rhino (PCR) 02/02/20 02/02/20 02/02/20 06:22 07:16 07:57 WBC RBC Hgb POC Hgb 9.5 L Hct POC Hct 28 L MCV MCH MCHC RDW Std Deviation RDW Coeff of Jayjay Plt Count MPV Immature Gran % (Auto) Neut % (Auto) Lymph % (Auto) [place] % (Auto) Eos % (Auto) Baso % (Auto) Immature Gran # (Auto) Neut # (Auto) Lymph # (Auto) [place] # (Auto) Eos # (Auto) Baso # (Auto) PT INR APTT PTT Ratio D-Dimer Sample Site Art Line POC pH 7.26 L POC pCO2 39 POC pO2 84 POC HCO3 17 L POC Total CO2 19 L POC Base Excess -10.0 L ABG pH (Temp Correct) 7.262 L ABG pCO2 (Temp Corrct 39 POC ABG pO2 at Pt Temp 84 Royce Test NA O2 Delivery Device Ventilator POC O2 Rate 22 Minute Ventilation 10 POC FiO2 100 Tidal Volume 450 PEEP 10 POC Sodium 139 Sodium POC Potassium 3.9 Potassium Chloride Carbon Dioxide Anion Gap BUN Creatinine Est Cr Clr Drug Dosing Est GFR ( Amer) Est GFR (Non-Af Amer) BUN/Creatinine Ratio Glucose Lactate 2.0 Calcium Phosphorus Magnesium Total Bilirubin AST ALT Alkaline Phosphatase Lactate Dehydrogenase Troponin I NT-Pro-B Natriuret Pep Total Protein Albumin Globulin Albumin/Globulin Ratio Procalcitonin 0.09 Urine Color Urine Appearance Urine pH Ur Specific [place] Urine Protein Urine Glucose (UA) Urine Ketones Urine Blood Urine Nitrite Urine Bilirubin Urine Urobilinogen Ur Leukocyte Esterase Nasal Screen MRSA (PCR) Adenovirus (PCR) B. pertussis DNA (PCR) B.parapertussis DNA PCR C. pneumoniae DNA (PCR) Coronavirus OC43 (PCR) Coronavirus HKU1 (PCR) Coronavirus 229E (PCR) Coronavirus NL63 (PCR) Human Metapneumovir PCR Influenza Type A (PCR) Influenza Type B (PCR) M. pneumoniae (PCR) Parainfluenza 1 (PCR) Parainfluenza 2 (PCR) Parainfluenza 3 (PCR) Parainfluenza 4 (PCR) RSV (PCR) Entero/Rhino (PCR) 02/02/20 02/02/20 02/02/20 10:00 10:00 10:07 WBC RBC Hgb POC Hgb Hct POC Hct MCV MCH MCHC RDW Std Deviation RDW Coeff of Jayjay Plt Count MPV Immature Gran % (Auto) Neut % (Auto) Lymph % (Auto) [place] % (Auto) Eos % (Auto) Baso % (Auto) Immature Gran # (Auto) Neut # (Auto) Lymph # (Auto) [place] # (Auto) Eos # (Auto) Baso # (Auto) PT INR APTT PTT Ratio D-Dimer Sample Site POC pH POC pCO2 POC pO2 POC HCO3 POC Total CO2 POC Base Excess ABG pH (Temp Correct) ABG pCO2 (Temp Corrct POC ABG pO2 at Pt Temp [place]ce Test O2 Delivery Device POC O2 Rate Minute Ventilation POC FiO2 Tidal Volume PEEP POC Sodium Sodium POC Potassium Potassium Chloride Carbon Dioxide Anion Gap BUN Creatinine Est Cr Clr Drug Dosing Est GFR ( Amer) Est GFR (Non-Af Amer) BUN/Creatinine Ratio Glucose Lactate Calcium Phosphorus Magnesium Total Bilirubin AST ALT Alkaline Phosphatase Lactate Dehydrogenase Troponin I NT-Pro-B Natriuret Pep Total Protein Albumin Globulin Albumin/Globulin Ratio Procalcitonin 0.41 Urine Color Urine Appearance Urine pH Ur Specific [place] Urine Protein Urine Glucose (UA) Urine Ketones Urine Blood Urine Nitrite Urine Bilirubin Urine Urobilinogen Ur Leukocyte Esterase Nasal Screen MRSA (PCR) Negative Adenovirus (PCR) Not Detected B. pertussis DNA (PCR) Not Detected B.parapertussis DNA PCR Not Detected C. pneumoniae DNA (PCR) Not Detected Coronavirus OC43 (PCR) Not Detected Coronavirus HKU1 (PCR) Not Detected Coronavirus 229E (PCR) Not Detected Coronavirus NL63 (PCR) Not Detected Human Metapneumovir PCR Not Detected Influenza Type A (PCR) Not Detected Influenza Type B (PCR) Not Detected M. pneumoniae (PCR) Not Detected Parainfluenza 1 (PCR) Not Detected Parainfluenza 2 (PCR) Not Detected Parainfluenza 3 (PCR) Not Detected Parainfluenza 4 (PCR) Not Detected RSV (PCR) Not Detected Entero/Rhino (PCR) DETECTED A* 02/02/20 02/02/20 02/02/20 10:07 10:07 10:07 WBC 6.99 RBC 3.41 L Hgb 8.9 L POC Hgb Hct 27.2 L POC Hct MCV 79.8 L MCH 26.1 MCHC 32.7 RDW Std Deviation 46.7 H RDW Coeff of Jayjay 16.0 H Plt Count 317 MPV 9.8 Immature Gran % (Auto) 0.3 Neut % (Auto) 74.1 Lymph % (Auto) 16.7 [place] % (Auto) 7.7 Eos % (Auto) 1.1 Baso % (Auto) 0.1 Immature Gran # (Auto) 0.02 Neut # (Auto) 5.17 Lymph # (Auto) 1.17 L [place] # (Auto) 0.54 Eos # (Auto) 0.08 Baso # (Auto) 0.01 PT INR APTT PTT Ratio D-Dimer 4000 H* Sample Site POC pH POC pCO2 POC pO2 POC HCO3 POC Total CO2 POC Base Excess ABG pH (Temp Correct) ABG pCO2 (Temp Corrct POC ABG pO2 at Pt Temp Royce Test O2 Delivery Device POC O2 Rate Minute Ventilation POC FiO2 Tidal Volume PEEP POC Sodium Sodium 141 POC Potassium Potassium 3.7 Chloride 115 H Carbon Dioxide 21 Anion Gap 5.0 BUN 21 H Creatinine 0.92 Est Cr Clr Drug Dosing 83.8 Est GFR ( Amer) 101.5 Est GFR (Non-Af Amer) 87.6 BUN/Creatinine Ratio 23.4 H Glucose 120 H Lactate Calcium 6.7 L Phosphorus Magnesium Total Bilirubin 0.8 AST 92 H ALT 73 Alkaline Phosphatase 125 H Lactate Dehydrogenase Troponin I NT-Pro-B Natriuret Pep Total Protein 5.3 L Albumin 2.1 L Globulin 3.2 Albumin/Globulin Ratio 0.7 L Procalcitonin Urine Color Urine Appearance Urine pH Ur Specific [place] Urine Protein Urine Glucose (UA) Urine Ketones Urine Blood Urine Nitrite Urine Bilirubin Urine Urobilinogen Ur Leukocyte Esterase Nasal Screen MRSA (PCR) Adenovirus (PCR) B. pertussis DNA (PCR) B.parapertussis DNA PCR C. pneumoniae DNA (PCR) Coronavirus OC43 (PCR) Coronavirus HKU1 (PCR) Coronavirus 229E (PCR) Coronavirus NL63 (PCR) Human Metapneumovir PCR Influenza Type A (PCR) Influenza Type B (PCR) M. pneumoniae (PCR) Parainfluenza 1 (PCR) Parainfluenza 2 (PCR) Parainfluenza 3 (PCR) Parainfluenza 4 (PCR) RSV (PCR) Entero/Rhino (PCR) 02/02/20 10:08 WBC RBC Hgb POC Hgb Hct POC Hct MCV MCH MCHC RDW Std Deviation RDW Coeff of Jayjay Plt Count MPV Immature Gran % (Auto) Neut % (Auto) Lymph % (Auto) [place] % (Auto) Eos % (Auto) Baso % (Auto) Immature Gran # (Auto) Neut # (Auto) Lymph # (Auto) [place] # (Auto) Eos # (Auto) Baso # (Auto) PT INR APTT PTT Ratio D-Dimer Sample Site POC pH POC pCO2 POC pO2 POC HCO3 POC Total CO2 POC Base Excess ABG pH (Temp Correct) ABG pCO2 (Temp Corrct POC ABG pO2 at Pt Temp [place]ce Test O2 Delivery Device POC O2 Rate Minute Ventilation POC FiO2 Tidal Volume PEEP POC Sodium Sodium POC Potassium Potassium Chloride Carbon Dioxide Anion Gap BUN Creatinine Est Cr Clr Drug Dosing Est GFR ( Amer) Est GFR (Non-Af Amer) BUN/Creatinine Ratio Glucose Lactate Calcium Phosphorus Magnesium Total Bilirubin AST ALT Alkaline Phosphatase Lactate Dehydrogenase 348 H Troponin I NT-Pro-B Natriuret Pep Total Protein Albumin Globulin Albumin/Globulin Ratio Procalcitonin Urine Color Urine Appearance Urine pH Ur Specific [place] Urine Protein Urine Glucose (UA) Urine Ketones Urine Blood Urine Nitrite Urine Bilirubin Urine Urobilinogen Ur Leukocyte Esterase Nasal Screen MRSA (PCR) Adenovirus (PCR) B. pertussis DNA (PCR) B.parapertussis DNA PCR C. pneumoniae DNA (PCR) Coronavirus OC43 (PCR) Coronavirus HKU1 (PCR) Coronavirus 229E (PCR) Coronavirus NL63 (PCR) Human Metapneumovir PCR Influenza Type A (PCR) Influenza Type B (PCR) M. pneumoniae (PCR) Parainfluenza 1 (PCR) Parainfluenza 2 (PCR) Parainfluenza 3 (PCR) Parainfluenza 4 (PCR) RSV (PCR) Entero/Rhino (PCR) Diagnostic Findings Two chest x-rays were obtained since admission. These did reveal bilateral pulmonary infiltrates consistent with pneumonia or pulmonary edema Echocardiogram performed today which did not reveal any significant valvular heart disease but did reveal severely reduced LV systolic function. RV function appeared intact. ECG Additional Comments: EKG demonstrates atrial flutter with rapid ventricular rate. PG Care Time/CCT Total # of Minutes Spent Total Time Spent with Patient: Total time spent is greater than 50% in coordination of care (as documented) at patient's floor/unit and/or counseling patient: Coding Level of Care Code 96841 Inpt Consult Level 4 Diagnoses Atrial flutter I48.92 Atrial flutter type: unspecified Cardiomyopathy I42.9 Pulmonary edema J81.1 (1) Atrial flutter Atrial flutter type: unspecified Qualified Code(s): I48.92 - Unspecified atrial flutter
--- NOTE | 2020-02-02 15:03 | Cardioversion ---
Date of Service February 02, 2020 PG Electrical Cardioversion Rp Electrical Cardioversion Report Procedure performed: Cardioversion Indication: Patient is a 64-year-old gentleman currently intubated and sedated presented to the [facility] with atrial flutter and a rapid ventricular re sponse. Staff spring repairer helper hand: Jd Marquez MD Procedure in detail: The patient was currently intubated and sedated and could not provide consent. However, due to the critical nature of his illness this was felt to be an appropriate intervention. He did undergo transesophageal echocardiogram immediately prior to this cardioversion to exclude thrombus in the left atrial appendage. The patient was cardioverted using 30 joules delivered in a biphasic fashion. This resulted in atrial fibrillation. An additional treatment with 200 J delivered in a biphasic fashion return him to a sinus rhythm.. The patient tolerated procedure well, there were no immediate complications. Impression: Successful cardioversion from atrial flutter to normal sinus rhythm Coding Level of Care Code Cardioversion, elective Additional Codes Electrical Cardioversion Report ([id number])
--- NOTE | 2020-02-02 15:41 | Electrocardiogram Report ---
Test Reason : Blood Pressure : / mmHG Vent. Rate : 154 BPM Atrial Rate : 147 BPM P-R Int : 000 ms QRS Dur : 102 ms QT Int : 336 ms P-R-T Axes : 000 -38 -68 degrees QTc Int : 538 ms Atrial flutter Left axis deviation T wave abnormality, consider inferior ischemia Abnormal ECG When compared with ECG of 25-JAN-2018 13:23, Atrial flutter has replaced sinus rhythm Vent. rate has increased BY 71 BPM QRS axis Shifted left T wave inversion now evident in Inferior leads Nonspecific T wave abnormality now evident in Lateral leads Confirmed by Jd Marquez ([id number]) on 02/02/2020 3:41:35 PM Referred By: REFERRED SELF Confirmed By:Reymundo Marquez
--- NOTE | 2020-02-02 15:42 | Electrocardiogram Report ---
Test Reason : Blood Pressure : / mmHG Vent. Rate : 148 BPM Atrial Rate : 308 BPM P-R Int : 000 ms QRS Dur : 102 ms QT Int : 334 ms P-R-T Axes : 000 065 -13 degrees QTc Int : 524 ms Atrial flutter with variable A-V block Low voltage QRS T wave abnormality, consider inferior ischemia Abnormal ECG Confirmed by Jd Marquez ([id number]) on 02/02/2020 3:42:30 PM Referred By: REFERRED SELF Confirmed By:Reymundo Marquez
--- NOTE | 2020-02-02 15:42 | Electrocardiogram Report ---
Test Reason : Blood Pressure : / mmHG Vent. Rate : 103 BPM Atrial Rate : 309 BPM P-R Int : 000 ms QRS Dur : 104 ms QT Int : 376 ms P-R-T Axes : -47 057 -26 degrees QTc Int : 492 ms Atrial flutter with variable A-V block Low voltage QRS Abnormal ECG When compared with ECG of 01-FEB-2020 18:41, (unconfirmed) No significant change was found Confirmed by Jd Marquez ([id number]) on 02/02/2020 3:42:40 PM Referred By: REFERRED SELF Confirmed By:Reymundo Marquez
--- NOTE | 2020-02-02 15:42 | Electrocardiogram Report ---
Test Reason : Blood Pressure : / mmHG Vent. Rate : 154 BPM Atrial Rate : 159 BPM P-R Int : 208 ms QRS Dur : 104 ms QT Int : 334 ms P-R-T Axes : -22 058 -48 degrees QTc Int : 534 ms Atrial flutter Low voltage QRS T wave abnormality, consider inferior ischemia Abnormal ECG When compared with ECG of 01-FEB-2020 17:22, (unconfirmed) QRS axis Shifted right ST no longer depressed in Inferior leads Confirmed by Jd Marquez ([id number]) on 02/02/2020 3:42:19 PM Referred By: REFERRED SELF Confirmed By:Reymundo Marquez
[2020-02-02] MEDS: carvediloL 3.125 MG TAB PO SCH ×2 (16:42→21:36)
[2020-02-02] MEDS: ENOXAPARIN 100 MG/1ML SYR SQ SCH (16:43)
[2020-02-02] MEDS ORDERED: ICU ELECTROLYTE REPLACEMENT PROTOCOL SCH (16:45)
[2020-02-02] MEDS ORDERED: ICU ELECTROLYTE REPLACEMENT PROTOCOL PRN (17:02)
[2020-02-02 17:24] LABS: Calcium 7.8 mg/dl (8.5-10.1); Creatinine Clr Calc Pharmacy 62.1 ml/min; Est GFR (African American) 70.8; Est GFR (Non-African American) 61.1; Magnesium 1.8 mg/dl (1.8-2.4); Phosphorus 2.8 mg/dl (2.5-4.9); Potassium 3.6 mmol/L (3.5-5.1)
[2020-02-02] MEDS: PIPERACILLIN/TAZOBACTAM 4.5 GM in DEXTROSE 5% 100 ML IV SCH (18:15)
[2020-02-02] MEDS ORDERED: FUROSEMIDE 40 MG in SYRINGE 0 ML IV SCH (21:00)
[2020-02-02] MEDS: MULTIVITAMIN TAB PO SCH (21:42)
[2020-02-02] MEDS: FAMOTIDINE 20 MG in SYRINGE 3 ML IV SCH (21:50)
--- NOTE | 2020-02-02 22:10 | Communication Note ---
Date of Service: February 02, 2020 Management per critical care team.
[2020-02-03] MEDS: propofoL 1,000 MG/100 ML VIAL IV SCH ×2 (00:54→16:57)
[2020-02-03] MEDS: fentaNYL DRIP 1,250 MCG/250 ML BAG IV SCH (01:40)
[2020-02-03] MEDS: PIPERACILLIN/TAZOBACTAM 4.5 GM in DEXTROSE 5% 100 ML IV SCH ×3 (01:41→17:46)
[2020-02-03] MEDS: ENOXAPARIN 100 MG/1ML SYR SQ SCH (01:41)
[2020-02-03 04:44] LABS: Basophils # (auto) 0.02 K/uL (0-0.2); Basophils % (auto) 0.3 %; Eosinophils # (auto) 0.61 K/uL (0-0.5); Eosinophils % (auto) 9.9 %; Hematocrit (blood only) 28.9 % (42-52); Hemoglobin 9.2 g/dL (14.0-18.0); Immature Granulocytes # (auto) 0.02 K/uL (0.00-0.02); Immature Granulocytes % (auto) 0.3 %; Lymphocytes # (auto) 1.12 K/uL (1.2-3.4); Lymphocytes % (auto) 18.2 %; Mean Corpuscular Hemoglobin 25.2 pg (25-34); Mean Corpuscular Hgb Conc 31.8 g/dL (32-36); Mean Corpuscular Volume 79.2 fL (80-100); Mean Platelet Volume 9.9 fL (7.4-10.4); Monocytes # (auto) 0.41 K/uL (0.11-0.59); Monocytes % (auto) 6.7 %; Neutrophils # (auto) 3.98 K/uL (1.4-6.5); Neutrophils % (auto) 64.6 %; Platelet Count 316 K/uL (130-400); RDW Coefficient of Variation 16.1 % (11.5-14.5); RDW Standard Deviation 47.1 fL (36.4-46.3); Red Blood Count 3.65 M/uL (4.7-6.1); White Blood Count 6.16 K/uL (4.8-10.8)
[2020-02-03 04:50] LABS: INR 1.4 (0.9-1.1); Prothrombin Time 14.6 Seconds (9.0-12.0)
[2020-02-03 05:03] LABS: BUN Creatinine Ratio 16.4 (10-20); Calcium 7.6 mg/dl (8.5-10.1); Creatinine Clr Calc Pharmacy 42.8 ml/min; Est GFR (African American) 45.1; Est GFR (Non-African American) 38.9; Magnesium 1.8 mg/dl (1.8-2.4); Potassium 3.1 mmol/L (3.5-5.1)
[2020-02-03 05:06] LABS: Albumin Globulin Ratio 0.6 (0.9-2); Bilirubin,Total 0.5 mg/dl (0.2-1); Globulin 3.2 gm/dl (2.5-4.0); Phosphorus 3.2 mg/dl (2.5-4.9); Total Protein 5.2 gm/dl (6.4-8.2)
[2020-02-03] MEDS ORDERED: POTASSIUM CHLORIDE 20 MEQ/15 ML UDC PO STA ×2 (05:29→20:45)
[2020-02-03] MEDS ORDERED: MAGNESIUM SULFATE / D5W 1 GM/100 ML BAG IV ONE (05:29)
[2020-02-03] MEDS: PHENYLEPHRINE HCL 20 MG in DEXTROSE 5% 500 ML IV SCH (05:42)
[2020-02-03] MEDS ORDERED: HydrALAZINE HCL 20 MG/ML VIAL IV ONE (06:34)
[2020-02-03 07:28] LABS: iSTAT Art Bld Gas pCO2 Correct 28 mmHg (35-46); iSTAT Arterial Blood Gas HCO3 18 meg/L (19-24); iSTAT Arterial Blood Gas pCO2 28 mmHg (35-46); iSTAT Arterial Blood Gas pH 7.42 (7.35-7.45); iSTAT Arterial Blood Gas pO2 61 mmHg (80-95); iSTAT Arterial Blood Gas pO2 C 60; iSTAT Carbon Dioxide 19 mmol/L (24-31); iSTAT FiO2 50 %; iSTAT Hematocrit 27 % (42-52); iSTAT Hemoglobin 9.2 g/dl (14.0-18.0); iSTAT Potassium 3.5 mmol/L (3.3-5.0); iSTAT Site Art Line; iSTAT Sodium 139 mmol/L (135-144)
[2020-02-03] MEDS ORDERED: VANCOMYCIN TROUGH ONE ×2 (07:30→21:30)
--- NOTE | 2020-02-03 07:33 | XRay Report ---
XR chest 1V portable HISTORY: Respiratory failure. COMPARISON: Chest 02/02/2020. FINDINGS: The endotracheal tube terminates 4.6 cm from the lashon. Nasogastric tube terminus below th e diaphragm. The tip is not included on this study. Left subclavian central venous catheter terminate s in the proximal SVC. No pneumothorax. Perihilar airspace opacities and ikhxn-[id number] bilateral pleural effusions persist. IMPRESSION: 1. Satisfactory support line placement. 2. Perihilar airspace opacities and small to moderate bilateral pleural effusions are again noted. Th is favors pulmonary edema. A bilateral pneumonia could also have a similar appearance. ACT 112: Negative or not required by law. Electronically signed by: Jacky Morocho M.D. 02/03/2020 7:32 AM
[2020-02-03] MEDS ORDERED: CALCIUM CHLORIDE 10% 1,000 MG in SODIUM CHLORIDE 0.9% 50 ML IV ONE (08:15)
[2020-02-03] MEDS: FUROSEMIDE 80 MG in SYRINGE 0 ML IV SCH ×2 (08:24→17:01)
[2020-02-03] MEDS: Heparin IV Standard *NO* Bolus IV SCH ×2 (08:33→10:11)
[2020-02-03] MEDS: carvediloL 6.25 MG TAB PO SCH ×2 (08:34→20:43)
[2020-02-03] MEDS: FAMOTIDINE 20 MG in SYRINGE 3 ML IV SCH (08:35)
[2020-02-03] MEDS ORDERED: Nursing to Pharmacy Communication ONE ×2 (08:36→17:09)
--- NOTE | 2020-02-03 08:40 | Critical Care Progress Note ---
Date of Service February 03, 2020 Assessment & Plan (1) Hypoxemia: Impression: 64-year-old male with history of rheumatoid arthritis admitted with tachycardia, new onset cardiomyopathy, and hypoxemic respiratory failure likely secondary to acute pulmonary edema. My clinical suspicion for coronavirus infection is quite low however he is already technically a person under investigation is the test is been sent. We will continue isolation until his PCR test comes back, hopefully within the next 24 to 48 hours. 24-hour events: Patient was transferred to the intensive care unit after being intubated. Central lines and arterial lines were placed. Transesophageal echocardiogram was performed with findings noted. He was then cardioverted with the assistance of cardiology. He is remained in normal sinus rhythm. He was weaned off of all vasopressor agents. We have been able to make significant progress in weaning his ventilator. Inverse ratio ventilation is now been discontinued and he is back to an GIL ratio 1-3. We have been able to wean his PEEP down to 5 and FiO2 down to 40 to 50%. Urine output continues to remain slightly low. Serum creatinine increased this morning. Recommendations: 1. Neurologic: Currently on fentanyl Versed and propofol given high vent settings yesterday. Will wean sedation improved sedation break today. Per nursing, he is able to move both hands and feet when sedation is lightened. 2. Cardiovascular: Atrial flutter/fibrillation with rapid ventricular response. Now cardioverted. Remains in sinus rhythm. Needs long-term anticoagulation given indeterminate time of arrhythmia. Will discontinue Lovenox given worsening kidney function and initiate heparin drip. Patient does have what appears to be a nonischemic cardiomyopathy. His blood pressure will support increasing his dose of carvedilol and will go up to 6.25 twice daily. We will continue attempts at diuresis and increase his Lasix to 80 a day. Addition of metolazone or Aldactone may be considered as well. We will hold GREGG inhibitor given his deterioration in renal function today 3. Pulmonary: Acute hypoxemic respiratory failure. Chest x-ray appears consistent with fluid overload and pulmonary edema. PF ratio improved today but remains prohibitive for extubation currently. Continue attempts at diuresis. 4. GI: Continue H2 lois. Nutritional consult for initiation of enteral tube feedings 5. Renal: No current issues. Continue electrolyte replacement as diuresis is initiated. See above under cardiovascular. Acid-base status improved. If kidney function continues to deteriorate, will need nephrology input 6. ID: Currently on Zosyn. Will ask pharmacy to assist in dosing given his renal function. Follow-up on cultures and if they remain negative at 72 hours, antibiotics may be discontinued. His bio fire was positive for rhinovirus, continue droplet precautions. Supportive care warranted. No therapies indicated 7. Heme-onc: History of rheumatoid arthritis. Anemia: No evidence of ongoing blood loss. No indication for transfusion currently. Check iron stores and reticulocyte count. We will continue to follow. We will continue full anticoagulation given uncertain duration of the patient's atrial flutter/fibrillation. Lovenox okay at 1 mg/kg every 12 hours given normal renal function. Will follow platelets. 8. Homelessness: No family or surrogate decision makers available. Continue current care. Patient is critically ill at this point time. A total of 45 minutes spent in evaluation management stabilization of this patient excluding procedures. (2) Congestive heart failure: (3) Pulmonary edema: Subjective Patient remains intubated and sedated. Review of Systems Review of Systems: Unobtainable due to endotracheal tube Physical Exam Constitutional: + ill appearing, + obese and + mechanically ventilated Eyes: PERRL, conjunctivae normal, anicteric sclerae Neck: trachea midline, no thyromegaly Cardiovascular: Rate/Rhythm: + tachycardic Heart Sounds: normal S1 and normal S2 Gastrointestinal (Abdomen): normal bowel sounds, soft, nontender, no hepatosplenomegaly Results & Data ([facility]) Vital Signs (Past 12 Hours) Vital Signs Pulse Resp BP Pulse Ox Pulse Ox 02/03/20 07:34 74 22 90 02/03/20 07:20 70 127/59 L 91 02/03/20 07:10 75 02/03/20 06:44 73 140/66 90 02/03/20 06:36 75 138/64 83 L 02/03/20 06:20 70 119/59 L 89 L 02/03/20 06:00 76 91 02/03/20 05:38 76 151/72 H 93 02/03/20 05:19 67 116/61 91 02/03/20 05:14 67 22 91 02/03/20 05:00 67 91 02/03/20 04:19 66 116/56 L 93 02/03/20 04:00 67 93 02/03/20 03:51 73 22 95 02/03/20 03:19 69 126/68 92 02/03/20 03:00 70 92 02/03/20 02:19 69 114/57 L 94 02/03/20 02:00 70 93 02/03/20 01:19 72 122/63 95 02/03/20 01:15 72 22 95 02/03/20 01:00 71 94 02/03/20 00:19 72 133/70 94 02/03/20 00:03 73 126/68 94 02/03/20 00:00 72 94 02/02/20 23:59 72 02/02/20 23:28 74 22 95 02/02/20 23:19 72 126/68 95 02/02/20 23:11 95 02/02/20 23:00 75 95 02/02/20 22:20 72 02/02/20 22:19 72 124/69 95 02/02/20 22:00 72 95 02/02/20 21:19 75 112/67 89 L 02/02/20 21:00 73 95 Laboratory Results 02/03/20 04:09 02/03/20 04:09 BNP remains markedly elevated and is now increased to over 13,000 up from 6000 yesterday. Albumin remains low at 2.0. Calcium 7.6 Blood gas this morning showed pH 7.42 with PCO2 of 28 and PO2 of 61 on 50% FiO2. P/F ratio of 120 Diagnostic Findings Chest x-ray was independently reviewed. It demonstrates progressive bibasilar infiltrates with pleural effusions. Tubes and lines appear to be in good position. Low lung volumes. Coding Level of Care Code Critical Care 1st 30-74 mins Diagnoses Hypoxemia R09.02 Congestive heart failure I50.9 Pulmonary edema J81.1 Time Spent (min) 45
[2020-02-03] MEDS ORDERED: POTASSIUM CHLORIDE 20 MEQ/15 ML UDC NG SCH (09:00)
[2020-02-03] MEDS ORDERED: HEPARIN 25000 UNIT/500 ML D5W IV ONE (09:06)
[2020-02-03] MEDS: HEPARIN SODIUM/DEXTROSE 25,000 UNITS/500 ML BAG IV SCH (09:38)
[2020-02-03] MEDS ORDERED: PEPTAMEN INTENSE VHP 1.0 CAL 1,000 ML BAG OG SCH (11:15)
--- NOTE | 2020-02-03 11:59 | Cardiology Progress Note ---
Date of Service February 03, 2020 Assessment & Plan (1) Atrial flutter: He underwent cardioversion yesterday. Maintaining sinus rhythm. Agree with initiation of beta-blockade. Systemic anticoagulation will be necessary at some point. He was changed to a heparin infusion currently in this can be transitioned to an oral regimen once he is tolerating a diet. We will wait to see what his renal function does prior to recommending a specific agent. (2) Cardiomyopathy: Unclear etiology. I think the most likely explanation is tachycardia induced cardiomyopathy. He has some mild elevation in his cardiac biomarkers most consistent with demand ischemia. Once he is extubated and can provide some history we could consider a coronary evaluation of some variety. This could also be deferred to the outpatient setting if necessary. I agree with starting carvedilol. Alhaji inhibition can also be started once his renal function stabilizes. (3) Pulmonary edema: X-ray demonstrates more vascular congestion. Did not affect a significant diuresis yesterday but is dose of diuretic has been increased. I think this is the intervention most likely to improve his pulmonary status. We will see how response to higher doses furosemide. He could also be placed on infusion or thiazide diuretic added. Admission and Anticipated Discharge Date Admission Date: February 01, 2020 Subjective Patient continues to be intubated and sedated. He cannot provide any history. Review of Systems Review of Systems: Unobtainable due to endotracheal tube Physical Exam Physical Exam: Intubated and sedated HEENT: The sclerae are anicteric. Neuro: Could not participate in the exam. Lungs: Apices are clear. Some crackles in the bases bilaterally. Cardiac: Heart demonstrates a regular rate and rhythm. Normal S1 and S2. Some crescendo systolic murmur. Pulses: The patient has palpable radial pulses bilaterally that are equal in in tensity Extremities: There was no evidence of hypoperfusion. Hands are swollen. There is no cyanosis or clubbing. Moderate lower extremity edema. Skin: I did not appreciate any rashes on examination today. Results & Data ([facility]) Vital Signs (Past 12 Hours) Vital Signs Pulse Resp BP Pulse Ox 02/03/20 11:20 67 133/67 95 02/03/20 11:00 65 91 02/03/20 10:21 65 18 91 02/03/20 10:20 67 131/60 91 02/03/20 10:00 66 91 02/03/20 09:21 71 91 02/03/20 09:20 70 129/67 91 02/03/20 09:00 70 92 02/03/20 08:20 71 131/63 92 02/03/20 07:34 74 22 90 02/03/20 07:20 70 127/59 L 91 02/03/20 07:10 75 02/03/20 06:44 73 140/66 90 02/03/20 06:36 75 138/64 83 L 02/03/20 06:20 70 119/59 L 89 L 02/03/20 06:00 76 91 02/03/20 05:38 76 151/72 H 93 02/03/20 05:19 67 116/61 91 02/03/20 05:14 67 22 91 02/03/20 05:00 67 91 02/03/20 04:19 66 116/56 L 93 02/03/20 04:00 67 93 02/03/20 03:51 73 22 95 02/03/20 03:19 69 126/68 92 02/03/20 03:00 70 92 02/03/20 02:19 69 114/57 L 94 02/03/20 02:00 70 93 02/03/20 01:19 72 122/63 95 02/03/20 01:15 72 22 95 02/03/20 01:00 71 94 02/03/20 00:19 72 133/70 94 02/03/20 00:03 73 126/68 94 02/03/20 00:00 72 94 02/02/20 23:59 72 Laboratory Results Abnormal Lab Results 02/02/20 02/02/20 02/02/20 07:57 10:00 14:03 WBC RBC Hgb POC Hgb 9.5 L Hct POC Hct 28 L MCV MCH MCHC RDW Std Deviation RDW Coeff of Jayjay Plt Count MPV Immature Gran % (Auto) Neut % (Auto) Lymph % (Auto) Osborne % (Auto) Eos % (Auto) Baso % (Auto) Immature Gran # (Auto) Neut # (Auto) Lymph # (Auto) Osborne # (Auto) Eos # (Auto) Baso # (Auto) PT INR Sample Site Art Line POC pH 7.26 L POC pCO2 39 POC pO2 84 POC HCO3 17 L POC Total CO2 19 L POC Base Excess -10.0 L ABG pH (Temp Correct) 7.262 L ABG pCO2 (Temp Corrct 39 POC ABG pO2 at Pt Temp 84 Royce Test NA O2 Delivery Device Ventilator POC O2 Rate 22 Minute Ventilation 10 POC FiO2 100 Tidal Volume 450 PEEP 10 POC Sodium 139 Sodium POC Potassium 3.9 Potassium Chloride Carbon Dioxide Anion Gap BUN Creatinine Est Cr Clr Drug Dosing Est GFR ( Amer) Est GFR (Non-Af Amer) BUN/Creatinine Ratio Glucose POC Glucose Calcium Phosphorus Magnesium Total Bilirubin AST ALT Alkaline Phosphatase Troponin I 2.400 H* NT-Pro-B Natriuret Pep Total Protein Albumin Globulin Albumin/Globulin Ratio Nasal Screen MRSA (PCR) Negative 02/02/20 02/02/20 02/03/20 16:54 21:38 01:20 WBC RBC Hgb POC Hgb Hct POC Hct MCV MCH MCHC RDW Std Deviation RDW Coeff of Jayjay Plt Count MPV Immature Gran % (Auto) Neut % (Auto) Lymph % (Auto) Osborne % (Auto) Eos % (Auto) Baso % (Auto) Immature Gran # (Auto) Neut # (Auto) Lymph # (Auto) Osborne # (Auto) Eos # (Auto) Baso # (Auto) PT INR Sample Site POC pH POC pCO2 POC pO2 POC HCO3 POC Total CO2 POC Base Excess ABG pH (Temp Correct) ABG pCO2 (Temp Corrct POC ABG pO2 at Pt Temp Royce Test O2 Delivery Device POC O2 Rate Minute Ventilation POC FiO2 Tidal Volume PEEP POC Sodium Sodium 141 POC Potassium Potassium 3.6 Chloride 114 H Carbon Dioxide 20 L Anion Gap 7.0 BUN 25 H Creatinine 1.24 D Est Cr Clr Drug Dosing 62.1 Est GFR ( Amer) 70.8 Est GFR (Non-Af Amer) 61.1 BUN/Creatinine Ratio 20.0 Glucose 93 POC Glucose 97 Calcium 7.8 L D Phosphorus 2.8 Magnesium 1.8 Total Bilirubin AST ALT Alkaline Phosphatase Troponin I 1.820 H* NT-Pro-B Natriuret Pep Total Protein Albumin Globulin Albumin/Globulin Ratio Nasal Screen MRSA (PCR) 02/03/20 02/03/20 02/03/20 04:09 04:09 04:09 WBC 6.16 RBC 3.65 L Hgb 9.2 L POC Hgb Hct 28.9 L POC Hct MCV 79.2 L MCH 25.2 MCHC 31.8 L RDW Std Deviation 47.1 H RDW Coeff of Jayjay 16.1 H Plt Count 316 MPV 9.9 Immature Gran % (Auto) 0.3 Neut % (Auto) 64.6 Lymph % (Auto) 18.2 Osborne % (Auto) 6.7 Eos % (Auto) 9.9 Baso % (Auto) 0.3 Immature Gran # (Auto) 0.02 Neut # (Auto) 3.98 Lymph # (Auto) 1.12 L Osborne # (Auto) 0.41 Eos # (Auto) 0.61 H Baso # (Auto) 0.02 PT 14.6 H INR 1.4 H Sample Site POC pH POC pCO2 POC pO2 POC HCO3 POC Total CO2 POC Base Excess ABG pH (Temp Correct) ABG pCO2 (Temp Corrct POC ABG pO2 at Pt Temp Royce Test O2 Delivery Device POC O2 Rate Minute Ventilation POC FiO2 Tidal Volume PEEP POC Sodium Sodium 140 POC Potassium Potassium 3.1 L Chloride 114 H Carbon Dioxide 20 L Anion Gap 6.0 BUN 30 H Creatinine 1.80 H D Est Cr Clr Drug Dosing 42.8 Est GFR ( Amer) 45.1 Est GFR (Non-Af Amer) 38.9 BUN/Creatinine Ratio 16.4 Glucose 78 POC Glucose Calcium 7.6 L Phosphorus 3.2 Magnesium 1.8 Total Bilirubin 0.5 AST 93 H ALT 113 H Alkaline Phosphatase 102 Troponin I NT-Pro-B Natriuret Pep Total Protein 5.2 L Albumin 2.0 L Globulin 3.2 Albumin/Globulin Ratio 0.6 L Nasal Screen MRSA (PCR) 02/03/20 02/03/20 02/03/20 05:18 06:22 07:17 WBC RBC Hgb POC Hgb 9.2 L Hct POC Hct 27 L MCV MCH MCHC RDW Std Deviation RDW Coeff of Jayjay Plt Count MPV Immature Gran % (Auto) Neut % (Auto) Lymph % (Auto) Osborne % (Auto) Eos % (Auto) Baso % (Auto) Immature Gran # (Auto) Neut # (Auto) Lymph # (Auto) Osborne # (Auto) Eos # (Auto) Baso # (Auto) PT INR Sample Site Art Line POC pH 7.42 POC pCO2 28 L POC pO2 61 L POC HCO3 18 L POC Total CO2 19 L POC Base Excess -6.0 ABG pH (Temp Correct) 7.420 ABG pCO2 (Temp Corrct 28 L POC ABG pO2 at Pt Temp 60 Royce Test NA O2 Delivery Device Ventilator POC O2 Rate 22 Minute Ventilation 6.9 POC FiO2 50 Tidal Volume 450 PEEP 5 POC Sodium 139 Sodium POC Potassium 3.5 Potassium Chloride Carbon Dioxide Anion Gap BUN Creatinine Est Cr Clr Drug Dosing Est GFR ( Amer) Est GFR (Non-Af Amer) BUN/Creatinine Ratio Glucose POC Glucose 80 Calcium Phosphorus Magnesium Total Bilirubin AST ALT Alkaline Phosphatase Troponin I NT-Pro-B Natriuret Pep 19502 H Total Protein Albumin Globulin Albumin/Globulin Ratio Nasal Screen MRSA (PCR) PG Care Time/CCT Total # of Minutes Spent Total Time Spent with Patient: Total time spent is greater than 50% in coordination of care (as documented) at patient's floor/unit and/or counseling patient: Coding Level of Care Code 96232 Subseq Obs Care Lvl 3 Diagnoses Atrial flutter I48.92 Atrial flutter type: unspecified Cardiomyopathy I42.9 Pulmonary edema J81.1 (1) Atrial flutter Atrial flutter type: unspecified Qualified Code(s): I48.92 - Unspecified atrial flutter
[2020-02-03] MEDS ORDERED: HEPARIN SODIUM/DEXTROSE 25,000 UNITS/500 ML BAG IV SCH ×2 (12:00)
[2020-02-03 16:50] LABS: Partial Thromboplastin Ratio 1.8
[2020-02-03 16:51] LABS: Partial Thromboplastin Time 50.7 Seconds (21.0-31.0)
[2020-02-03 17:00] LABS: Albumin Globulin Ratio 0.5 (0.9-2); Bilirubin,Total 0.5 mg/dl (0.2-1); Calcium 8.3 mg/dl (8.5-10.1); Creatinine Clr Calc Pharmacy 39.1 ml/min; Globulin 3.6 gm/dl (2.5-4.0); Potassium 3.8 mmol/L (3.5-5.1); Total Protein 5.6 gm/dl (6.4-8.2)
[2020-02-03] MEDS: POTASSIUM CHLORIDE 20 MEQ/15 ML UDC PO SCH ×2 (17:45→20:44)
[2020-02-03] MEDS: MULTI VIT W/MINERALS LIQUID 15 ML UDP PO SCH (20:31)
--- NOTE | 2020-02-03 22:52 | Communication Note ---
Date of Service: February 03, 2020 Patient remains intubated and COVID 19 testing is pending. To limit possible spread, will defer management to [employer].
[2020-02-04] MEDS: FUROSEMIDE 80 MG in SYRINGE 0 ML IV SCH (00:26)
[2020-02-04] MEDS: HEPARIN SODIUM/DEXTROSE 25,000 UNITS/500 ML BAG IV SCH ×2 (01:56→15:38)
[2020-02-04] MEDS: PIPERACILLIN/TAZOBACTAM 4.5 GM in DEXTROSE 5% 100 ML IV SCH (01:56)
[2020-02-04 03:02] LABS: iSTAT Art Bld Gas pCO2 Correct 31 mmHg (35-46); iSTAT Art Bld Gas pH Corrected 7.429 (7.35-7.45); iSTAT Arterial Blood Gas HCO3 21 meg/L (19-24); iSTAT Arterial Blood Gas pCO2 30 mmHg (35-46); iSTAT Arterial Blood Gas pH 7.44 (7.35-7.45); iSTAT Arterial Blood Gas pO2 71 mmHg (80-95); iSTAT Arterial Blood Gas pO2 C 76; iSTAT Carbon Dioxide 21 mmol/L (24-31); iSTAT FiO2 30 %; iSTAT Hematocrit 30 % (42-52); iSTAT Hemoglobin 10.2 g/dl (14.0-18.0); iSTAT Potassium 3.7 mmol/L (3.3-5.0); iSTAT Site Art Line; iSTAT Sodium 139 mmol/L (135-144)
[2020-02-04 04:35] LABS: Basophils # (auto) 0.02 K/uL (0-0.2); Basophils % (auto) 0.2 %; Eosinophils % (auto) 9.8 %; Hematocrit (blood only) 30.6 % (42-52); Hemoglobin 9.9 g/dL (14.0-18.0); Immature Granulocytes # (auto) 0.01 K/uL (0.00-0.02); Immature Granulocytes % (auto) 0.1 %; Lymphocytes % (auto) 9.8 %; Mean Corpuscular Hemoglobin 25.4 pg (25-34); Mean Corpuscular Hgb Conc 32.4 g/dL (32-36); Mean Corpuscular Volume 78.7 fL (80-100); Mean Platelet Volume 9.3 fL (7.4-10.4); Monocytes # (auto) 0.62 K/uL (0.11-0.59); Monocytes % (auto) 7.6 %; Neutrophils # (auto) 5.95 K/uL (1.4-6.5); Neutrophils % (auto) 72.5 %; Platelet Count 341 K/uL (130-400); RDW Coefficient of Variation 16.2 % (11.5-14.5); RDW Standard Deviation 46.9 fL (36.4-46.3); Red Blood Count 3.89 M/uL (4.7-6.1)
[2020-02-04 04:46] LABS: INR 1.2 (0.9-1.1); Partial Thromboplastin Ratio 1.5; Partial Thromboplastin Time 42.5 Seconds (21.0-31.0)
[2020-02-04 04:55] LABS: Calcium 7.9 mg/dl (8.5-10.1); Creatinine Clr Calc Pharmacy 32.6 ml/min; Est GFR (African American) 28.9; Est GFR (Non-African American) 24.9; Potassium 3.5 mmol/L (3.5-5.1)
[2020-02-04 04:58] LABS: Albumin Globulin Ratio 0.5 (0.9-2); Bilirubin,Total 0.5 mg/dl (0.2-1); Globulin 3.8 gm/dl (2.5-4.0); Phosphorus 3.2 mg/dl (2.5-4.9); Total Protein 5.8 gm/dl (6.4-8.2)
[2020-02-04] MEDS ORDERED: HEPARIN IV BOLUS 3,000 UNITS in SYRINGE 0 ML IV ONE (05:00)
[2020-02-04] MEDS ORDERED: Nursing to Pharmacy Communication ONE (06:52)
[2020-02-04 07:29] LABS: Quantiferon Mitogen-NIL 8.98 IU/mL; Quantiferon NIL 0.02 IU/mL; Quantiferon TB Gold Plus NEGATIVE (NEGATIVE); Quantiferon TB1-NIL 0.01 IU/mL
[2020-02-04] MEDS ORDERED: HydrALAZINE HCL 20 MG/ML VIAL ONE (07:29)
[2020-02-04] MEDS: POTASSIUM CHLORIDE 20 MEQ/15 ML UDC NG SCH ×2 (07:31→07:32)
[2020-02-04] MEDS: carvediloL 6.25 MG TAB PO SCH (07:33)
[2020-02-04] MEDS ORDERED: HydrALAZINE HCL 20 MG/ML VIAL IV PRN (07:34)
[2020-02-04] MEDS ORDERED: RACEPINEPHRINE 2.25% NEBU SOLN 0.5 ML VIAL NEB STA (08:21)
[2020-02-04] MEDS: fentaNYL DRIP 1,250 MCG/250 ML BAG IV SCH (08:37)
[2020-02-04] MEDS: MIDAZOLAM HCL 125 MG/250 ML BAG IV SCH (08:38)
[2020-02-04] MEDS: propofoL 1,000 MG/100 ML VIAL IV SCH (08:39)
--- NOTE | 2020-02-04 09:19 | Critical Care Progress Note ---
Date of Service February 04, 2020 Assessment & Plan (1) Hypoxemia: Impression: 64-year-old male with history of rheumatoid arthritis admitted with tachycardia, new onset cardiomyopathy, and hypoxemic respiratory failure likely secondary to acute pulmonary edema. 24-hour events: Able to diurese 2 L overnight. He remains hemodynamically stable. Slight increase in serum creatinine this morning. He completed an SBT which looked reassuring and he was extubated earlier this morning. He did have some mild stridor and will receive a racemic epi neb. Recommendations: 1. Neurologic: Off sedation. Continue to follow neurological status. 2. Cardiovascular: Atrial flutter/fibrillation with rapid ventricular response. Now cardioverted. Remains in sinus rhythm. Continue carvedilol. Needs long- term anticoagulation given indeterminate time of arrhythmia. Continue heparin. Will need to transition to oral anticoagulant at some point. We will hold GREGG inhibitor given his deterioration in renal function today. May benefit from follow-up echocardiogram in 4 to 6 weeks. Given increase in serum creatinine will hold additional diuresis today. 3. Pulmonary: Acute hypoxemic respiratory failure. Chest x-ray appears c onsistent with fluid overload and pulmonary edema. Extubated to nasal cannula. Continue to wean oxygen as tolerated. Repeat chest x-ray in a.m. 4. GI: Continue H2 lois. Speech therapy for swallow evaluation. Advance diet as tolerated. 5. Renal: Increase in serum creatinine, likely secondary to diuretics. Hold additional diuresis. Blood pressure currently adequate. Will use hydralazine as needed to keep systolic less than 150. 6. ID: Blood culture negative and sputum culture no organisms and no growth to date. Seems reasonable to discontinue Zosyn and follow clinically at this point time. His white count is normal and he is afebrile. 7. Heme-onc: History of rheumatoid arthritis. Anemia: No evidence of ongoing blood loss. No indication for transfusion currently. Check iron stores and reticulocyte count. We will continue to follow. We will continue full anticoagulation given uncertain duration of the patient's atrial flutter/fibrillation. Will follow platelets. 8. Homelessness: No family or surrogate decision makers available. Continue current care. We will monitor in ICU today. If he does well, he may be able to transfer back to the floor tomorrow. (2) Congestive heart failure: (3) Pulmonary edema: Subjective Intubated and sedated. Currently on sedation break. SBT ongoing. The patient appears to be doing reasonably well. RSB I is less than 105. Review of Systems Review of Systems: Unobtainable due to endotracheal tube Physical Exam Constitutional: + obese Eyes: PERRL, conjunctivae normal, anicteric sclerae Neck: trachea midline, no thyromegaly Respiratory: normal respiratory effort, lungs clear to auscultation Cardiovascular: Rate/Rhythm: + tachycardic Heart Sounds: normal S1 and normal S2 Gastrointestinal (Abdomen): normal bowel sounds, soft, nontender, no hepatosplenomegaly Results & Data ([facility]) Vital Signs (Past 12 Hours) Vital Signs Pulse Pulse Resp BP Pulse Ox Pulse Ox 02/04/20 08:26 84 20 99 02/04/20 07:27 82 28 H 100 02/04/20 06:21 82 176/88 H 99 02/04/20 06:00 74 96 02/04/20 05:37 77 23 95 02/04/20 05:20 75 137/102 H 95 02/04/20 05:00 71 93 02/04/20 04:20 73 142/69 H 94 02/04/20 04:00 74 94 02/04/20 03:20 78 126/58 L 93 02/04/20 03:00 77 92 02/04/20 02:20 81 183/82 H 95 02/04/20 02:00 81 95 02/04/20 01:42 76 22 96 02/04/20 01:20 79 166/75 H 96 02/04/20 01:00 73 95 02/04/20 00:20 80 160/91 H 98 02/04/20 00:00 71 95 02/03/20 23:59 76 02/03/20 23:20 68 138/73 95 02/03/20 23:00 69 95 98 02/03/20 22:40 70 02/03/20 22:34 70 18 95 02/03/20 22:20 69 134/64 95 02/03/20 22:00 69 96 02/03/20 21:20 73 157/73 H 96 Laboratory Results 02/04/20 04:16 02/04/20 04:16 Sputum culture no growth to date. Blood cultures no growth to date. Diagnostic Findings No new imaging Coding Level of Care Code 10060 Subseq Hosp Care Lvl 3 Diagnoses Hypoxemia R09.02 Congestive heart failure I50.9 Pulmonary edema J81.1
[2020-02-04] MEDS: FAMOTIDINE 20 MG in SYRINGE 3 ML IV SCH (09:31)
[2020-02-04 10:00] LABS: Ferritin 122.1 ng/ml (8-388)
--- NOTE | 2020-02-04 10:03 | XRay Report ---
XR chest 1V portable CLINICAL HISTORY: 64 years-old Male presenting with resp failure. TECHNIQUE: Portable upright AP view of the chest was obtained. COMPARISON: 02/03/2020. FINDINGS: Interval extubation. Removal of the nasogastric tube. Left subclavian vein central venous catheter re freddy in the mid SVC. Numerous external overlying leads to grating image quality. Atherosclerosis of the aortic arch. Cardiac silhouette mildly enlarged. Pulmonary vascular prominence and diffuse added density of the lungs is slightly decreased. Persistent layering bilateral pleural effusions, right gr eater than left. Slightly improved aeration of the lung bases. No pneumothorax. Degenerative changes of the thoracic spine. Advanced degenerative changes of the glenohumeral joints. Upper abdomen normal . IMPRESSION: 1. Significant decrease in pulmonary edema with decreasing layering pleural effusions and slightly i mproved basilar aeration. 2. Interval extubation and removal of the nasogastric tube. ACT 112: Negative or not required by law. Electronically signed by: Cresencio Rodrigues M.D. 02/04/2020 10:02 AM
[2020-02-04 10:30] LABS: Reticulocyte % 1.8 % (0.5-2.0); Reticulocytes # 0.07 10^6/uL (0.02-0.10)
[2020-02-04 11:21] LABS: Partial Thromboplastin Ratio 1.8
[2020-02-04 11:23] LABS: Partial Thromboplastin Time 49.8 Seconds (21.0-31.0)
--- NOTE | 2020-02-04 12:00 | Cardiology Progress Note ---
Date of Service February 04, 2020 Assessment & Plan (1) Atrial flutter: The patient remains in sinus rhythm. Case discussed with Dr. Mcguire. We will increase his carvedilol. We have also discussed addition of amiodarone 200 mg b.i.d. as the patient did not tolerate his atrial dysrhythmia well. (2) Cardiomyopathy: Suspect a tachycardic induced cardiomyopathy. As above, his beta-lois will be increased and he will be started on amiodarone. (3) Pulmonary edema: Does not appear to be in pulmonary edema today. Diuretics have been placed on hold due to worsening renal function. Admission and Anticipated Discharge Date Admission Date: February 01, 2020 Subjective The patient is resting comfortably in bed without complaints of chest pain or dyspnea. Was successfully extubated this morning. Physical Exam Physical Exam: In general this well-developed well-nourished male lying supine in bed without complaints. HEENT exam is negative. Neck is supple with full carotid upstrokes. No obvious bruits. Lungs note decreased breath sounds but no rales, rhonchi, wheezes. Abdomen is soft bruits. Extremities note pitting edema the hands. There is 1+ pretibial edema. Results & Data ([facility]) Vital Signs (Past 12 Hours) Vital Signs Pulse Pulse Resp BP Pulse Ox 02/04/20 11:20 81 28 H 146/80 H 97 02/04/20 10:20 77 29 H 153/65 H 94 02/04/20 09:20 76 21 138/66 94 02/04/20 08:26 84 20 99 02/04/20 08:20 87 128/62 96 02/04/20 08:00 82 97 02/04/20 07:27 82 28 H 100 02/04/20 07:20 85 186/92 H 100 02/04/20 07:00 81 96 02/04/20 06:21 82 176/88 H 99 02/04/20 06:00 74 96 02/04/20 05:37 77 23 95 02/04/20 05:20 75 137/102 H 95 02/04/20 05:00 71 93 02/04/20 04:20 73 142/69 H 94 02/04/20 04:00 74 94 02/04/20 03:20 78 126/58 L 93 02/04/20 03:00 77 92 02/04/20 02:20 81 183/82 H 95 02/04/20 02:00 81 95 02/04/20 01:42 76 22 96 02/04/20 01:20 79 166/75 H 96 02/04/20 01:00 73 95 02/04/20 00:20 80 160/91 H 98 02/04/20 00:00 71 95 02/03/20 23:59 76 Laboratory Results clinical research monitor notes sinus rhythm. No evidence of atrial flutter. PG Care Time/CCT Total # of Minutes Spent Total Time Spent with Patient: Total time spent is greater than 50% in coordination of care (as documented) at patient's floor/unit and/or counseling patient: Coding Level of Care Code 63298 Subseq Hosp Care Lvl 3 Diagnoses Atrial flutter I48.92 Atrial flutter type: unspecified Cardiomyopathy I42.9 Pulmonary edema J81.1 (1) Atrial flutter Atrial flutter type: unspecified Qualified Code(s): I48.92 - Unspecified atrial flutter
[2020-02-04] MEDS ORDERED: AMIODARONE IV BOLUS & DRIP IV STA (15:34)
[2020-02-04] MEDS: carvediloL 12.5 MG TAB PO SCH ×2 (15:38→20:26)
[2020-02-04] MEDS ORDERED: AMIODARONE / D5W 150 MG/100 ML BAG IV SCH (15:45)
[2020-02-04] MEDS ORDERED: 0.2 MICRON FILTER SET 1 EA IV ONE (15:45)
[2020-02-04] MEDS ORDERED: AMIODARONE / D5W 360 MG/200 ML BAG IV SCH ×2 (16:00→22:00)
[2020-02-04] MEDS: AMIODARONE 200 MG TAB PO SCH (16:31)
--- NOTE | 2020-02-04 16:54 | Hospitalist Progress Note ---
Date of Service February 04, 2020 Assessment & Plan (1) Acute respiratory failure with hypoxia: Patient was intubated on night of admission and was extubated today. Patient initially had concern over covid 19 INFECTION DUE TO HIS RAPID DECLINE. However, patient developed above diagnosis, from having pulmonary edema from tachycardia induced cardiomyopathy. Patient has severe global hypokinesis of LV. EF: 25-30% Patient has been diuresed and has improved. Given increase in creatinine though will hold diuretics today. (2) Congestive heart failure: Acute systolic congestive heart failure. As noted above. Improved with diuresis. Extubated. Holding diuretics today due to increase creatinine. (3) Pulmonary edema: Improved. (4) Atrial flutter: Cardioverted. Now in sinus. continue carveidlol, no longer tachycardic. On heparin and amiodarone. (5) Rheumatoid arthritis: Patient reports he has not had his Enbrel for 6 weeks. (6) Restless leg syndrome: stable. (7) BPH (benign prostatic hyperplasia): Hold terazosin due to atrial flutter. May change to tamsulosin (8) Hypertension: See above. (9) Pneumonia: At this point, doubt patient had pneumonia. WBC and procal normal. Will monitor course without antibiotics. (10) Hypokalemia: improved. will monitor. (11) Hypoalbuminemia: likely secondary to poor diet as patient is homeless. (12) Homeless single person: Due to his non-domiciled status, patient is considered at increased risk for COVID. Will monitor overnight in ICU. Will titrate oxygen level. Admission and Anticipated Discharge Date Admission Date: February 01, 2020 Subjective Patient was extubated today. Patient reports doing well, resting in bed. Patient denies any sob, N/V at this time. He does report some mild throat pain though. Review of Systems Review of Systems: The patient denies chest pain, palpitations, lower extremity swelling, sore throat, fevers, chills, sweats, nausea, vomiting, diarrhea , constipation, abdominal pain, pelvic pain, blood in urine or stool, dysuria, urinary frequency or urgency, lightheadedness, dizziness, headache, memory loss, loss of consciousness, rash, abnormal bruising or bleeding, imbalance, focal or generalized weakness, numbness or tingling in arms or legs, generalized arthralgias or myalgias, back or neck pain, or night sweats. The review of systems is otherwise negative other than for that already noted above, and at least 10 systems have been reviewed. Physical Exam Physical Exam: The patient is awake, alert and oriented 3, well developed and well nourished, normocephalic and atraumatic, lying in bed and in no acute distress. HEENT--PERRL, EOMI, mucous membranes and oropharynx dry. Neck--supple. No JVD. No bruits. Thyroid normal, trachea midline, no adeno sheldon. Heart--normal S1 and S2. No murmurs, rubs or gallops. Lungs--clear bilaterally, no respiratory distress, no accessory muscle use. Abdomen--normal bowel sounds and soft. Nontender. Nondistended, no hernias or masses, no organomegaly. Extremities--no cyanosis or clubbing. No edema. There are good distal pulses b/l. Dermatologic--normal skin turgor, normal color, no abnormal lymph nodes, no rash. Neurologic--cranial nerves II through XII grossly intact. Rheumatologic--normal range of motion. Psychiatric--normal affect. Results & Data Results & Data ([facility]) Vital Signs (Past 12 Hours) Vital Signs Pulse Pulse Resp BP Pulse Ox 02/04/20 13:20 81 30 H 168/78 H 97 02/04/20 12:20 83 24 157/72 H 96 02/04/20 11:20 81 28 H 146/80 H 97 02/04/20 10:20 77 29 H 153/65 H 94 02/04/20 09:20 76 21 138/66 94 02/04/20 08:26 84 20 99 02/04/20 08:20 87 128/62 96 02/04/20 08:00 82 97 02/04/20 07:27 82 28 H 100 02/04/20 07:20 85 186/92 H 100 02/04/20 07:00 81 96 02/04/20 06:21 82 176/88 H 99 02/04/20 06:00 74 96 02/04/20 05:37 77 23 95 02/04/20 05:20 75 137/102 H 95 02/04/20 05:00 71 93 PG Care Time/CCT Total # of Minutes Spent Total Time Spent with Patient: Total time spent is greater than 50% in coordination of care (as documented) at patient's floor/unit and/or counseling patient: Coding Level of Care Code 95861 Subseq Hosp Care Lvl 3 Diagnoses Acute respiratory failure with hypoxia J96.01 Congestive heart failure I50.9 Pulmonary edema J81.1 Atrial flutter I48.92 Atrial flutter type: unspecified Rheumatoid arthritis M06.9 Restless leg syndrome G25.81 BPH (benign prostatic hyperplasia) N40.0 Hypertension I10 Pneumonia J18.9 Laterality: right Lung location: lower lobe of lung Pneumonia type: due to unspecified organism Hypokalemia E87.6 Hypoalbuminemia E88.09 Homeless single person Z59.0 Time Spent (min) 35 (1) Atrial flutter Atrial flutter type: unspecified Qualified Code(s): I48.92 - Unspecified atrial flutter (2) Pneumonia Laterality: right Lung location: lower lobe of lung Pneumonia type: due to unspecified organism Qualified Code(s): J18.9 - Pneumonia, unspecified organism
[2020-02-04 17:27] LABS: Calcium 8.3 mg/dl (8.5-10.1); Creatinine Clr Calc Pharmacy 31.9 ml/min; Est GFR (African American) 28.1; Est GFR (Non-African American) 24.3; Magnesium 1.9 mg/dl (1.8-2.4); Potassium 4.3 mmol/L (3.5-5.1)
[2020-02-04] MEDS ORDERED: MAGNESIUM SULFATE / D5W 1 GM/100 ML BAG IV ONE (18:00)
[2020-02-04] MEDS: MULTI VIT W/MINERALS LIQUID 15 ML UDP PO SCH (20:26)
[2020-02-05 04:19] LABS: Hematocrit (blood only) 34.4 % (42-52); Hemoglobin 11.3 g/dL (14.0-18.0); Mean Corpuscular Hemoglobin 25.9 pg (25-34); Mean Corpuscular Hgb Conc 32.8 g/dL (32-36); Mean Corpuscular Volume 78.7 fL (80-100); Mean Platelet Volume 9.4 fL (7.4-10.4); Platelet Count 380 K/uL (130-400); RDW Standard Deviation 46.1 fL (36.4-46.3); Red Blood Count 4.37 M/uL (4.7-6.1); White Blood Count 7.68 K/uL (4.8-10.8)
[2020-02-05 04:38] LABS: Partial Thromboplastin Ratio 1.6
[2020-02-05 04:39] LABS: Partial Thromboplastin Time 45.9 Seconds (21.0-31.0)
[2020-02-05 04:53] LABS: BUN Creatinine Ratio 10.2 (10-20); Calcium 8.2 mg/dl (8.5-10.1); Creatinine Clr Calc Pharmacy 30.5 ml/min; Est GFR (African American) 29.9; Est GFR (Non-African American) 25.8; Magnesium 2.1 mg/dl (1.8-2.4); Potassium 3.2 mmol/L (3.5-5.1)
[2020-02-05] MEDS: HEPARIN SODIUM/DEXTROSE 25,000 UNITS/500 ML BAG IV SCH ×3 (04:59→18:24)
[2020-02-05] MEDS ORDERED: HEPARIN IV BOLUS 3,000 UNITS in SYRINGE 0 ML IV ONE (05:15)
[2020-02-05] MEDS: POTASSIUM CHLORIDE / WTR 10 MEQ/100 ML PLCT IV SCH ×4 (05:24→11:30)
--- NOTE | 2020-02-05 07:47 | Critical Care Progress Note ---
Date of Service February 05, 2020 Assessment & Plan (1) Hypoxemia: Impression: 64-year-old male with history of rheumatoid arthritis admitted with tachycardia, new onset cardiomyopathy, and hypoxemic respiratory failure likely secondary to acute pulmonary edema. 24-hour events: Extubated yesterday. Doing well on nasal cannula, 2 liters. Nursing performed a bedside swallow's test which the patient failed due to immediately coughing. He is been kept n.p.o. Speech therapy/swallow evaluation pending. Initiated on amiodarone IV as patient was unable to take p.o. Recommendations: 1. Neurologic: No current issues 2. Cardiovascular: Atrial flutter/fibrillation with rapid ventricular response. Now cardioverted. Remains in sinus rhythm. Continue carvedilol (hopefully will pass swallow study and can restart oral medications). Needs long-term anticoagulation given indeterminate time of arrhythmia. Continue heparin. Will need to transition to oral anticoagulant at some point. We will hold GREGG inhibitor given his deterioration in renal function today. May benefit from follow-up echocardiogram in 4 to 6 weeks. Continue amiodarone IV. Transition to p.o. if he passes swallow study 3. Pulmonary: Acute hypoxemic respiratory failure. Chest x-ray appears consistent with fluid overload and pulmonary edema. Continue to wean oxygen as tolerated. 4. GI: Continue H2 lois. Speech therapy for swallow evaluation. Advance diet as tolerated. 5. Renal: Serum creatinine stable to slightly improved today. No additional diuretics have been administered. He is auto diuresing. Will use hydralazine as needed to keep systolic less than 150. 6. ID: Blood culture negative and sputum culture no organisms and no growth to date. He completed 3 days of empiric Zosyn. 7. Heme-onc: History of rheumatoid arthritis. Anemia: No evidence of ongoing blood loss. No indication for transfusion currently. Iron studies consistent with low iron. Reticulocyte count normal. Start oral iron supplementation when possible. Should have outpatient work-up considering colonoscopy if not previously done 8. Homelessness: No family or surrogate decision makers available. Continue current care. Okay to transfer to the floor. Will sign off once he leaves the ICU. Feel free to contact us if we can be of additional pulmonary critical care assistance. (2) Congestive heart failure: (3) Pulmonary edema: Subjective Patient seen and examined. EMR reviewed. He is. His pain is adequately controlled. He is breathing well. No cough or sputum production. Review of Systems Review of Systems: All systems reviewed & are unremarkable except as noted in HPI & below Physical Exam Constitutional: + obese Eyes: PERRL, conjunctivae normal, anicteric sclerae Neck: trachea midline, no thyromegaly Respiratory: normal respiratory effort, lungs clear to auscultation Cardiovascular: Rate/Rhythm: + tachycardic Heart Sounds: normal S1 and normal S2 Gastrointestinal (Abdomen): normal bowel sounds, soft, nontender, no hepatosplenomegaly Results & Data ([facility]) Vital Signs (Past 12 Hours) Vital Signs Temp Pulse Pulse Resp BP Pulse Ox Pulse Ox 02/05/20 07:12 80 02/05/20 02:00 80 27 H 96 02/05/20 01:20 72 21 153/69 H 96 02/05/20 01:00 69 23 92 02/05/20 00:57 79 28 H 151/88 H 96 02/05/20 00:20 36.8 C 78 24 151/88 H 91 02/05/20 00:00 75 20 96 02/04/20 23:59 71 02/04/20 23:20 70 15 162/81 H 96 02/04/20 23:00 83 23 93 95 02/04/20 22:20 79 28 H 152/81 H 96 02/04/20 22:00 73 25 H 96 02/04/20 21:20 71 19 150/65 H 94 02/04/20 21:00 76 21 97 02/04/20 20:41 73 20 95 02/04/20 20:20 78 22 150/69 H 96 02/04/20 20:00 37.0 C 77 30 H 95 Laboratory Results 02/05/20 04:04 02/05/20 04:04 Diagnostic Findings No new films Coding Level of Care Code 66268 Subseq Hosp Care Lvl 3 Diagnoses Hypoxemia R09.02 Congestive heart failure I50.9 Pulmonary edema J81.1
[2020-02-05] MEDS: carvediloL 12.5 MG TAB PO SCH ×2 (07:48→20:22)
[2020-02-05] MEDS: AMIODARONE 200 MG TAB PO SCH ×2 (08:14→16:40)
[2020-02-05] MEDS: FAMOTIDINE 20 MG in SYRINGE 3 ML IV SCH (08:14)
--- NOTE | 2020-02-05 10:58 | Cardiology Progress Note ---
Date of Service February 05, 2020 Assessment & Plan (1) Atrial flutter: The patient remains in sinus rhythm. Did have 1 brief run of an atrial tachycardia yesterday. Receiving intravenous amiodarone as he is unable to take p.o. those due to aspiration. (2) Cardiomyopathy: Suspect a tachycardic induced cardiomyopathy. Continue carvedilol as able. Amiodarone as above. (3) Pulmonary edema: Compensated at this time. Diuretics on hold due to worsening renal function. Admission and Anticipated Discharge Date Admission Date: February 01, 2020 Subjective The patient is resting comfortably in bed without complaints of chest pain, dyspnea, or palpitations. Physical Exam Physical Exam: In general this well-developed well-nourished male lying supine in bed without complaints. HEENT exam is negative. Neck is supple with full carotid upstrokes. No obvious bruits. Lungs note decreased breath sounds but no rales, rhonchi, wheezes. Abdomen is soft bruits. Extremities note pitting edema on the hands. There is 1+ pretibial edema. Results & Data ([facility]) Vital Signs (Past 12 Hours) Vital Signs Temp Pulse Resp BP Pulse Ox Pulse Ox 02/05/20 10:21 67 23 117/68 94 02/05/20 09:21 68 21 125/61 93 02/05/20 08:21 68 21 137/73 94 02/05/20 07:21 36.9 C 71 15 173/78 H 95 02/05/20 07:12 80 02/05/20 06:20 77 20 168/92 H 96 02/05/20 05:20 67 19 153/75 H 93 02/05/20 04:21 77 19 152/107 H 92 02/05/20 03:20 69 22 168/86 H 94 02/05/20 03:00 72 32 H 93 02/05/20 02:20 76 20 145/76 H 95 02/05/20 02:00 80 27 H 96 02/05/20 01:20 72 21 153/69 H 96 02/05/20 01:00 69 23 92 02/05/20 00:57 79 28 H 151/88 H 96 02/05/20 00:20 36.8 C 78 24 151/88 H 91 02/05/20 00:00 75 20 96 02/04/20 23:59 71 02/04/20 23:20 70 15 162/81 H 96 02/04/20 23:00 83 23 93 95 PG Care Time/CCT Total # of Minutes Spent Total Time Spent with Patient: Total time spent is greater than 50% in coordination of care (as documented) at patient's floor/unit and/or counseling patient: Coding Level of Care Code 35435 Subseq Hosp Care Lvl 3 Diagnoses Atrial flutter I48.92 Atrial flutter type: unspecified Cardiomyopathy I42.9 Pulmonary edema J81.1 (1) Atrial flutter Atrial flutter type: unspecified Qualified Code(s): I48.92 - Unspecified atrial flutter
--- NOTE | 2020-02-05 11:09 | Hospitalist Progress Note ---
Date of Service February 05, 2020 Assessment & Plan (1) Acute respiratory failure with hypoxia: Patient was intubated on night of admission and was extubated 02/03 Patient initially had concern over covid 19 INFECTION DUE TO HIS RAPID DECLINE, suspected PNA on CXR, and homelessness/exposure to traveling contacts. However, CXR findings and dyspnea, hypoxia were secondary to rapid atrial flutter and acute systolic CHF with pulmonary edema as below COVID test NOT sent, but BioFire panel positive for Entero/Rhinovirus, Flu negative Much improved, diuresing, rneal failure improving, and now weaned off O2 to room air at rest -continue to follow, supplemental O2 as needed (2) Congestive heart failure: Acute systolic congestive heart failure. With large pleural effusions and resp failure requiring intubation Patient has severe global hypokinesis of LV. EF: 25-30% Unclear etiology--> tachyarrhythmia induced vs ischemic. Did have mildly elevated troponins Patient has been diuresed with lasix and has improved, now auto-diuresing, has put out over 4L of urine each day the last 2 days Extubated and now weaned to room air CXR improved, will repeat in the AM -started Coreg 12.5mg po bid -controlled rapid a-flutter with DCCV, amiodarone -no further diuretics needed at this time -watch BMP -when renal function back to baseline, can add on ACEi/ARB Appreciate Cardiology management -will need repeat ECHO at some point -will need ischemic evaluation perhaps as outpt -now eating--> make low Na+ diet and fluid restrict to 1800mL -daily weights, strict I/Os (3) Atrial flutter: Presented with rapid A-flutter and received multiple doses of AV yashira blockers and had significant pulm edema. He then decompensated and possibly had a brief run of VT during CODE BLUE -was intubated, then DCCV to a sinus rhythm Remains in NSR for most part but had a few salvos of a-fib/flutter last evening -started on IV amiodarone and now converted to po amiodarone 200mg po bid -continue IV heparin gtt while has renal failure for now, then plan to transition to oral anticoagulant -placed consult to Nurse Navigator to barrientos out [place]; unsure if he would have access to frequent INR testing with being homeless, living out of hotels, and is wheelchair-bound making travel difficult -continue Coreg for rate control -ok to transfer out of ICU to PCU (4) REGIS (acute kidney injury): 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 WBC and procal normal. Will monitor course without antibiotics. With rhino/enterovirus + on BioFire -on droplet precautions -follow CXR in AM now that is diuresing to ensure clearing up (10) Hypokalemia: Continues today -replaced with IV KCl -follow BMP in AM (11) Hypoalbuminemia: likely secondary to poor diet as patient is homeless. (12) Homeless single person: living in a hotel and has a business case analyst through [employer] program as per Case Man notes He does have Medicaid insurance and drug coverage (13) Anemia: hgb 9-11 follow (14) DVT prophylaxis: Heparin gtt Dispo-transfer out of ICU to PCU today, slowly improving Admission and Anticipated Discharge Date Admission Date: February 01, 2020 Anticipated date of discharge: 02/08/20 Subjective Pt feels tired but is "ok." Denies chest pain or SOB. Is coughing somewhat. Says he has no appetite. When asked if he knows why he's in the hospital, he does state "I had pneumonia...and did I have a heart attack?" Had a large BM yesterday and is making copious amounts of urine--> has had 4l out daily the last 2 days, auto-diuresing. Discussed his case with Executive Asst and Cardiology. He is ready for transfer out of the ICU. Pt reports he gets his medications from [facility] pharmacy and has insurance coverage. He does report he needs a PCP. Tele with a few brief runs of Afib last evening but nothing sustained. Is transitioning from amiodarone gtt to po amiodarone today; remains on heparin gtt. Review of Systems Review of Systems: All systems reviewed & are unremarkable except as noted in HPI & below Physical Exam Constitutional: + ill appearing and average body habitus; no acute distress Eyes: + anicteric sclerae Neck: trachea midline, no thyromegaly Respiratory: normal respiratory effort; no labored breathing Auscultation: + diminished lung sounds (at bases bilat); no rhonchi and no wheezes Cardiovascular: RRR, no murmur, no edema Chest (Breasts): Chest: normal inspection of chest Gastrointestinal (Abdomen): normal bowel sounds, soft, nontender, no hepatosplenomegaly Musculoskeletal: Extremities: + extremities abnormal to inspection (bilateral hands/feet with deformities,contractures at knees), no cyanosis and no clubbing Skin: no rashes, warm and dry Neurologic: moves all extremities and awake; no focal motor deficits Genitourinary: Davis in place with clear yellow urine Lymphatic: no lymphedema Results & Data Results & Data ([facility]) Vital Signs (Past 12 Hours) Vital Signs Temp Pulse Resp BP Pulse Ox 02/05/20 10:21 67 23 117/68 94 02/05/20 09:21 68 21 125/61 93 02/05/20 08:21 68 21 137/73 94 02/05/20 07:21 36.9 C 71 15 173/78 H 95 02/05/20 07:12 80 02/05/20 06:20 77 20 168/92 H 96 02/05/20 05:20 67 19 153/75 H 93 02/05/20 04:21 77 19 152/107 H 92 02/05/20 03:20 69 22 168/86 H 94 02/05/20 03:00 72 32 H 93 02/05/20 02:20 76 20 145/76 H 95 02/05/20 02:00 80 27 H 96 02/05/20 01:20 72 21 153/69 H 96 03/29/20 01:00 69 23 92 02/05/20 00:57 79 28 H 151/88 H 96 02/05/20 00:20 36.8 C 78 24 151/88 H 91 02/05/20 00:00 75 20 96 02/04/20 23:59 71 02/04/20 23:20 70 15 162/81 H 96 Laboratory Results 02/05/20 02/05/20 02/05/20 Range/Units 10:56 04:04 04:04 WBC 7.68 (4.8-10.8) K/uL RBC 4.37 L (4.7-6.1) M/uL Hgb 11.3 L (14.0-18.0) g/dL Hct 34.4 L (42-52) % MCV 78.7 L (80-100) fL MCH 25.9 (25-34) pg MCHC 32.8 (32-36) g/dL RDW Std Deviation 46.1 (36.4-46.3) fL RDW Coeff of Jayjay 16.0 H (11.5-14.5) % Plt Count 380 (130-400) K/uL MPV 9.4 (7.4-10.4) fL APTT 46.7 H* 45.9 H* (21.0-31.0) Seconds PTT Ratio 1.7 1.6 Sodium (136-145) mmol/L Potassium (3.5-5.1) mmol/L Chloride (98-107) mmol/L Carbon Dioxide (21-32) mmol/L Anion Gap (3-11) BUN (7-18) mg/dl Creatinine (0.6-1.4) mg/dl Est Cr Clr Drug Dosing ml/min Est GFR ( Amer) Est GFR (Non-Af Amer) BUN/Creatinine Ratio (10-20) Glucose (70-99) mg/dl Calcium (8.5-10.1) mg/dl Phosphorus (2.5-4.9) mg/dl Magnesium (1.8-2.4) mg/dl 02/05/20 Range/Units 04:04 WBC (4.8-10.8) K/uL RBC (4.7-6.1) M/uL Hgb (14.0-18.0) g/dL Hct (42-52) % MCV (80-100) fL MCH (25-34) pg MCHC (32-36) g/dL RDW Std Deviation (36.4-46.3) fL RDW Coeff of Jayjay (11.5-14.5) % Plt Count (130-400) K/uL MPV (7.4-10.4) fL APTT (21.0-31.0) Seconds PTT Ratio Sodium 139 (136-145) mmol/L Potassium 3.2 L D (3.5-5.1) mmol/L Chloride 109 H (98-107) mmol/L Carbon Dioxide 22 (21-32) mmol/L Anion Gap 8.0 (3-11) BUN 26 H (7-18) mg/dl Creatinine 2.53 H (0.6-1.4) mg/dl Est Cr Clr Drug Dosing 30.5 ml/min Est GFR ( Amer) 29.9 Est GFR (Non-Af Amer) 25.8 BUN/Creatinine Ratio 10.2 (10-20) Glucose 147 H (70-99) mg/dl Calcium 8.2 L (8.5-10.1) mg/dl Phosphorus 4.0 (2.5-4.9) mg/dl Magnesium 2.1 (1.8-2.4) mg/dl PG Care Time/CCT Total # of Minutes Spent Total Time Spent with Patient: Total time spent is greater than 50% in coordination of care (as documented) at patient's floor/unit and/or counseling patient: Coding Level of Care Code 74905 Subseq Hosp Care Lvl 3 Diagnoses Acute respiratory failure with hypoxia J96.01 Congestive heart failure I50.9 Atrial flutter I48.92 Atrial flutter type: unspecified REGIS (acute kidney injury) N17.9 Rheumatoid arthritis M06.9 Restless leg syndrome G25.81 BPH (benign prostatic hyperplasia) N40.0 Hypertension I10 Pneumonia J18.9 Laterality: right Lung location: lower lobe of lung Pneumonia type: due to unspecified organism Hypokalemia E87.6 Hypoalbuminemia E88.09 Homeless single person Z59.0 Anemia D64.9 DVT prophylaxis Z29.9 (1) Atrial flutter Atrial flutter type: unspecified Qualified Code(s): I48.92 - Unspecified atrial flutter (2) Pneumonia Laterality: right Lung location: lower lobe of lung Pneumonia type: due to unspecified organism Qualified Code(s): J18.9 - Pneumonia, unspecified organism
[2020-02-05 11:28] LABS: Partial Thromboplastin Ratio 1.7
[2020-02-05 11:30] LABS: Partial Thromboplastin Time 46.7 Seconds (21.0-31.0)
[2020-02-05] MEDS: DiphenhydrAMINE 2%/ZINC 0.1% CREAM 28GM TUBE EXT PRN (11:47)
[2020-02-05] MEDS: TERAZOSIN HCL 1 MG CAP PO SCH (20:22)
[2020-02-05] MEDS: MULTI VIT W/MINERALS LIQUID 15 ML UDP PO SCH (20:22)
[2020-02-05] MEDS ORDERED: FAMOTIDINE 20 MG TAB PO SCH (21:00)
[2020-02-06 06:59] LABS: Hematocrit (blood only) 34.6 % (42-52); Hemoglobin 11.2 g/dL (14.0-18.0); Mean Corpuscular Hemoglobin 25.3 pg (25-34); Mean Corpuscular Hgb Conc 32.4 g/dL (32-36); Mean Corpuscular Volume 78.3 fL (80-100); Mean Platelet Volume 9.5 fL (7.4-10.4); Platelet Count 337 K/uL (130-400); RDW Standard Deviation 46.1 fL (36.4-46.3); Red Blood Count 4.42 M/uL (4.7-6.1); White Blood Count 6.97 K/uL (4.8-10.8)
[2020-02-06 07:20] LABS: Partial Thromboplastin Time 56.5 Seconds (21.0-31.0)
--- NOTE | 2020-02-06 07:20 | XRay Report ---
XR chest 1V portable CLINICAL HISTORY: f/u pleural effusions COMPARISON STUDY: Chest radiograph February 04, 2020. FINDINGS: There is no pneumothorax. Bilateral pleural effusions have decreased in size. Pulmonary keya ma has slightly improved. There are persistent bibasilar opacities, slightly improved. Incidental not e is made of osteoarthritis of the glenohumeral joints. IMPRESSION: Mild interval improvement in pulmonary edema, bilateral pleural effusions and associated bibasilar opacities. ACT 112: Negative or not required by law. Electronically signed by: Enzo Patel M.D. 02/06/2020 7:19 AM
[2020-02-06 07:32] LABS: Calcium 8.2 mg/dl (8.5-10.1); Creatinine Clr Calc Pharmacy 33.5 ml/min; Est GFR (African American) 33.5; Est GFR (Non-African American) 28.9; Magnesium 2.1 mg/dl (1.8-2.4); Potassium 3.3 mmol/L (3.5-5.1)
[2020-02-06 07:34] LABS: Phosphorus 3.3 mg/dl (2.5-4.9)
[2020-02-06] MEDS: carvediloL 12.5 MG TAB PO SCH ×2 (09:30→21:14)
[2020-02-06] MEDS: FAMOTIDINE 20 MG TAB PO SCH (09:30)
[2020-02-06] MEDS: AMIODARONE 200 MG TAB PO SCH ×2 (09:30→16:34)
[2020-02-06] MEDS: POTASSIUM CHLORIDE 20 MEQ TABCR PO SCH (09:30)
[2020-02-06] MEDS: TERAZOSIN HCL 1 MG CAP PO SCH ×2 (09:31→21:14)
[2020-02-06] MEDS: HEPARIN SODIUM/DEXTROSE 25,000 UNITS/500 ML BAG IV SCH (09:45)
[2020-02-06] MEDS: FERROUS SULFATE 325 MG TAB PO SCH (10:15)
--- NOTE | 2020-02-06 12:26 | Cardiology Progress Note ---
Date of Service February 06, 2020 Assessment & Plan (1) Atrial flutter: The patient remains in sinus rhythm on oral amiodarone. He is tolerating anticoagulation with Eliquis without difficulty. (2) Cardiomyopathy: Suspect a tachycardic induced cardiomyopathy. Continue carvedilol. (3) Pulmonary edema: Compensated at this time. Diuretics currently on hold due to worsening renal function. Admission and Anticipated Discharge Date Admission Date: February 01, 2020 Anticipated date of discharge: 02/08/20 Subjective The patient is resting comfortably in bed without complaints of chest pain, dyspnea, or palpitations. Physical Exam Physical Exam: In general this well-developed well-nourished male lying supine in bed without complaints. HEENT exam is negative. Neck is supple with full carotid upstrokes. No obvious bruits. Lungs note decreased breath sounds but no rales, rhonchi, wheezes. Abdomen is soft bruits. Extremities note pitting edema on the hands. There is 1+ pretibial edema. 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 No evidence of atrial flutter. PG Care Time/CCT Total # of Minutes Spent Total Time Spent with Patient: Total time spent is greater than 50% in coordination of care (as documented) at patient's floor/unit and/or counseling patient: Coding Level of Care Code 39566 Subseq Hosp Care Lvl 3 Diagnoses Atrial flutter I48.92 Atrial flutter type: unspecified Cardiomyopathy I42.9 Pulmonary edema J81.1 (1) Atrial flutter Atrial flutter type: unspecified Qualified Code(s): I48.92 - Unspecified atrial flutter
--- NOTE | 2020-02-06 14:56 | Hospitalist Progress Note ---
Date of Service February 06, 2020 Assessment & Plan (1) REGIS (acute kidney injury): Baseline Cr 0.74, continue to monitor off diuretics for continued improvement. Peaked 2.66 [02/03] (diuretics stopped same day). Suspect pre-renal from diuretic use +/- NSTEMI, +/- ATN from poor perfusion. Holding further diuretics. Monitor BMP in AM. Present on Admission?: No (2) Acute respiratory failure with hypoxia: Now resolved on room air Intubated 02/01, extubated 02/03 Initially concern for covid 19 due to rapid decline, suspected PNA on CXR, and homelessness/exposure to traveling contacts, however, biofire positive for entero/rhinovirus and CXR findings consistent with pulmonary edema rather than ARDS. (3) Atrial flutter: Presented new onset rapid A-flutter not responsive to rate controlling medications with associated CHF. Decompensated with possibly brief run of VT during CODE BLUE on night of admission; intubated and transferred to ICU with subsequent ALE and c ardioversion in the morning. TSH WNL. Continue amiodarone 200mg BID. Continue carvedilol for rate control 12.5mg BID. Anticoagulation with Eliquis (starting tonight). Stop IV heparin drip at same time as starting Eliquis. (4) Congestive heart failure: Acute systolic congestive heart failure in setting of rapid atrial flutter. ALE - mod-severe global hypokinesis LVEF: 25-30%, no wall motion abnormalities. Improving CXR this morning despite no further diuresis since 02/03. Will continue to hold off lasix and monitor renal function. Net 562ml -ve balance despite no diuretics, no further lasix required currently. Continue carvedilol 12.5mg BID, unable to start ACEi in setting of REGIS. (5) Cardiomyopathy: Secondary to tachyarrhythmia vs. ischemic (no wall motion abnormalities) vs. viral (positive entero/rhinovirus). Plan to repeat TTE as outpatient and f/u cardiology. BB, no ACEi/ARB due to REGIS (6) Demand ischemia: Elevated troponin on admission. Suspected due to demand ischemia in setting of rapid atrial flutter. (7) Rheumatoid arthritis: No Enbrel for 6 weeks as forgot to pick it up and then became unwell, will not restart currently given respiratory infection. Stop NSAIDs due to starting Eliquis and reduced renal function. Tramadol prn pain Continue output f/u (8) Hypertension: Stable but labile. Continue outpatient med terazosin 1mg BID. Added carvedilol + amiodarone this admission. hydralazine 10mg IV q4H PRN sBP > 180 (9) Viral infection: Nasal congestion and cough prior to admission. Suspected viral bronchitis. +ve Biofire for entero/rhinovirus. Droplet precautions. (10) Pneumonia: Ruled out (11) Hypokalemia: On outpatient 20 meq PO daily Start KCl 40 meq PO daily Monitor K daily while admitted (12) Anemia: Mild microcytic. Stable. Iron def. (sats 10.8%), restarted on ferrous sulphate. Likely some degree of anemia of chronic disease with RA (13) Homeless single person: Living in [facility] while awaiting for apartment to be ready - [employer] through [employer] program From [place] and currently without a PCP therefore will need setup on discharge. (14) BPH (benign prostatic hyperplasia): Continue terazosin 1mg BID (15) Restless leg syndrome: Holding home Requip, restart if becomes symptomatic or upon discharge (16) DVT prophylaxis: Heparin IV drip -> convert to Eliquis tonight as above. PT/OT vanesa. Admission and Anticipated Discharge Date Admission Date: February 01, 2020 Anticipated date of discharge: 02/08/20 Subjective Reviewed history with the patient and went through clinical course while he has been in hospital. Feels he is improving everyday. He is unsure where he will go on discharge as he was temporarily in a hotel while awaiting for an apartment. Reports being off all his medications prior to admission since he is in the process of changing PCPs after moving from [place]. Reported nasal congestion and cough prior to admission for which he was taking Sudafed. Still has a dry cough present but no longer having nasal congestion. Renal function slowly improving off diuretics. Review of Systems Review of Systems: All systems reviewed & are unremarkable except as noted in HPI & below Physical Exam Constitutional: well developed; + not well nourished and no acute distress Eyes: + anicteric sclerae; normal pupil size ENMT: external ear and nose normal, oropharynx normal Respiratory: normal respiratory effort; no respiratory distress and no labored breathing Auscultation: no diminished lung sounds, no crackles, no rales, no rhonchi and no wheezes Cardiovascular: Rate/Rhythm: regular rate and regular rhythm Heart Sounds: no murmur Extremities: normal capillary refill and + pedal edema (trace b/l equal); no calf tenderness Chest (Breasts): Chest: normal inspection of chest Gastrointestinal (Abdomen): Inspection/Auscultation: normal bowel sounds; abdomen not distended Percussion/Palpation: abdomen soft; abdomen nontender Musculoskeletal: Extremities: + extremities abnormal to inspection (chronic deformities of hands/feet consistent with RA, contractures at knees) Neurologic: moves all extremities and awake; not confused Psychiatric: A+Ox3, euthymic affect Results & Data Results & Data ([facility]) Vital Signs (Past 12 Hours) Vital Signs Temp Pulse Pulse Resp BP Pulse Ox 02/06/20 11:46 37.1 C 72 20 156/68 H 93 02/06/20 08:00 37.0 C 60 63 19 168/97 H 97 02/06/20 04:44 36.9 C 66 16 161/71 H 93 PG Care Time/CCT Total # of Minutes Spent Total Time Spent with Patient: Total time spent is greater than 50% in coordination of care (as documented) at patient's floor/unit and/or counseling patient: Coding Level of Care Code 94767 Subseq Hosp Care Lvl 3 Diagnoses REGIS (acute kidney injury) N17.9 Acute respiratory failure with hypoxia J96.01 Atrial flutter I48.92 Atrial flutter type: unspecified Congestive heart failure I50.21 Heart failure chronicity: acute Heart failure type: systolic Cardiomyopathy I42.9 Cardiomyopathy type: unspecified Demand ischemia I24.8 Rheumatoid arthritis M06.9 Rheumatoid arthritis location: unspecified site Rheumatoid factor presence: unspecified presence Hypertension I10 Hypertension type: essential hypertension Viral infection B34.9 Pneumonia J18.9 Laterality: right Lung location: lower lobe of lung Pneumonia type: due to unspecified organism Hypokalemia E87.6 Anemia D50.8 Anemia type: iron deficiency Iron deficiency anemia type: inadequate dietary iron intake Homeless single person Z59.0 BPH (benign prostatic hyperplasia) N40.0 Lower urinary tract symptom presence: symptoms absent Restless leg syndrome G25.81 DVT prophylaxis Z29.9 (1) BPH (benign prostatic hyperplasia) Lower urinary tract symptom presence: symptoms absent Qualified Code(s): N40.0 - Benign prostatic hyperplasia without lower urinary tract symptoms (2) Rheumatoid arthritis Rheumatoid arthritis location: unspecified site Rheumatoid factor presence: unspecified presence Qualified Code(s): M06.9 - Rheumatoid arthritis, unspecified (3) Congestive heart failure Heart failure chronicity: acute Heart failure type: systolic Qualified Code(s): I50.21 - Acute systolic (congestive) heart failure (4) Anemia Anemia type: iron deficiency Iron deficiency anemia type: inadequate dietary iron intake Qualified Code(s): D50.8 - Other iron deficiency anemias (5) Atrial flutter Atrial flutter type: unspecified Qualified Code(s): I48.92 - Unspecified atrial flutter (6) Hypertension Hypertension type: essential hypertension Qualified Code(s): I10 - Essential (primary) hypertension (7) Cardiomyopathy Cardiomyopathy type: unspecified Qualified Code(s): I42.9 - Cardiomyopathy, unspecified (8) Pneumonia Laterality: right Lung location: lower lobe of lung Pneumonia type: due to unspecified organism Qualified Code(s): J18.9 - Pneumonia, unspecified organism
[2020-02-06] MEDS ORDERED: HydrALAZINE HCL 20 MG/ML VIAL IV PRN (15:31)
[2020-02-06] MEDS: MULTI VIT W/MINERALS LIQUID 15 ML UDP PO SCH (21:13)
[2020-02-06] MEDS: APIXABAN 5 MG TABLET PO SCH (21:14)
[2020-02-07 06:52] LABS: Partial Thromboplastin Ratio 1.1; Partial Thromboplastin Time 30.2 Seconds (21.0-31.0)
[2020-02-07 07:14] LABS: Albumin Level 2.2 gm/dl (3.4-5.0); BUN Creatinine Ratio 8.3 (10-20); Calcium 8.2 mg/dl (8.5-10.1); Creatinine Clr Calc Pharmacy 32.7 ml/min; Est GFR (African American) 32.5; Potassium 3.6 mmol/L (3.5-5.1)
[2020-02-07 07:17] LABS: Albumin Globulin Ratio 0.5 (0.9-2); Bilirubin,Total 0.4 mg/dl (0.2-1); Globulin 4.1 gm/dl (2.5-4.0); Total Protein 6.3 gm/dl (6.4-8.2)
[2020-02-07] MEDS: APIXABAN 5 MG TABLET PO SCH ×2 (08:18→20:52)
[2020-02-07] MEDS: FAMOTIDINE 20 MG TAB PO SCH (08:18)
[2020-02-07] MEDS: TERAZOSIN HCL 1 MG CAP PO SCH ×2 (08:18→20:52)
[2020-02-07] MEDS: POTASSIUM CHLORIDE 20 MEQ TABCR PO SCH (08:18)
[2020-02-07] MEDS: carvediloL 12.5 MG TAB PO SCH ×2 (08:18→20:52)
[2020-02-07] MEDS: FERROUS SULFATE 325 MG TAB PO SCH (08:19)
[2020-02-07] MEDS: AMIODARONE 200 MG TAB PO SCH ×2 (08:19→16:18)
[2020-02-07 08:37] LABS: Appearance Urine Clear (Clear); Bilirubin Urine Negative (Negative); Blood Urine Negative (Negative); Color Urine Yellow; Glucose Urine UA Negative (Negative); Ketones Urine Negative (Negative); Leukocyte Esterase Urine Negative (Negative); Nitrite Urine Negative (Negative); Protein Urine Negative (Negative); Urobilinogen Urine Negative (Negative)
--- NOTE | 2020-02-07 09:06 | Ultrasound Report ---
EXAMINATION: RENAL ULTRASOUND CLINICAL HISTORY: Acute renal insufficiency. Evaluate for obstruction. COMPARISON STUDY: CT scan dated 10/15/2014 FINDINGS: The right kidney measures 10 cm. The left kidney measures 10.2 cm. There is no evidence of hydronephrosis. There are bilateral renal cysts, the largest of which is located within the left ki dney measuring 2 cm. The bladder was poorly distended. Bilateral ureteral jets were visualized. IMPRESSION : 1. No evidence of hydronephrosis 2. Small bilateral renal cysts ACT 112: Negative or not required by law. Electronically signed by: Jonnathan Brown M.D. 02/07/2020 9:05 AM
--- NOTE | 2020-02-07 12:37 | Nephrology Consultation ---
Date of Consultation February 07, 2020 Assessment & Plan (1) REGIS (acute kidney injury): 64 Year old male admitted to the hospital with AFib with RVR requiring intubation and successfully extubated after 2 days. Developed REGIS, creatinine peaked to 2.7 which currently improving and seems to be leveling off. Prior to the episode of REGIS, renal function was otherwise normal with baseline creatinine 0.8-0.9. Urinalysis and renal ultrasound unremarkable. REGIS most likely secondary to ATN in the setting hypotension and AFib with RVR. --expect renal function to slowly improve, no other workup indicated at this time. --advised to avoid all NSAIDs including naproxen which he has been taking pr eviously, okay to use the Tramadol, Prednisone are Tylenol as needed --keep well hydrated --monitor renal function daily panel Will Follow Thank you for allowing me to participate in your patient's care. It was a pleasure to see David (2) Hypertension: (3) BPH (benign prostatic hyperplasia): (4) Hypokalemia: History of Present Illness Reason for Consultation: Acute kidney injury. Attending Physician: Brendan Wall MD History of Present Illness David Dailey HIS 64-year-old gentlemen with past medical history significant for hypertension rheumatoid arthritis admitted to the hospital with AFib with RVR. Nephrology consult was requested to manage acute kidney injury. Electronic medical records including labs and imaging were reviewed in detail during patient's visit. David presented to ER 02/02/2020 with shortness of breath and. On admission he was found to have AFib with RVR, heart rate was 140-40 5-150, was hypotensive. He was found to be clinically unstable and Code blue was called, he was intubated and transferred to ICU. Eventually he converted to sinus rhythm with rate controlled amiodarone, diltiazem. Was extubated on 02/03/2030. Influenza a and Fontanez virus test was negative and he was positive for rhino virus No history of chronic kidney disease, baseline creatinine has been 0.8-0.9, on admission creatinine was at baseline 0.9. Creatinine rapidly worsened over next 3 days, creatinine was 1.83/27, peaked to 2.73/24. Last 3 days creatinine seems to have stabilized and staying 2.3-2 4. Urinalysis was negative for proteinuria, hematuria pyuria. Renal ultrasound was otherwise unremarkable except multiple simple cyst. History of BPH, has been on Terazosin but voiding normally Has been non-oliguric. Blood pressure has been well controlled over last few days after being hypotensive initially. No known family history of CKD, ESRD. Remote history of smoking. Overall he is seems to be improving and otherwise doing well, denies any further evidence episode of shortness of breath or chest pain, remained afebrile however continues to occasional cough. Allergies Allergy/AdvReac Type Severity Reaction Status Date / Time No Known Drug Allergies Allergy Unknown NONE Verified 02/01/20 20:33 Home Medications Home Medications Medication Instructions Recorded Confirmed Type diclofenac sodium 50 mg PO BID PRN 08/12/18 02/01/20 History etanercept [Enbrel] 50 mg SUBCUT WK 08/12/18 02/01/20 History ferrous sulfate [iron] 325 mg PO QPM 08/12/18 02/01/20 History multivitamin 1 tab PO QPM 08/12/18 02/01/20 History naproxen 500 mg PO BID PRN 08/12/18 02/01/20 History potassium chloride [Klor-Con M20] 20 meq PO QAM 08/12/18 02/01/20 History ropinirole 1 mg PO BID 02/01/20 02/01/20 History terazosin 1 mg PO BID 02/01/20 02/01/20 History tramadol 50 mg PO Q8H PRN 02/01/20 02/01/20 History Patient History Medical History Anemia BPH (benign prostatic hyperplasia) Hx of fracture of leg left - not current Hypertension Restless leg syndrome Rheumatoid arthritis Urinary frequency r/t prostate Surgical History History of tonsillectomy History of tooth extraction Family History Father Family history of diabetes mellitus Social History Preferred Language: Slovenian Communication Ability: Unable Sliver Former Required: No Beliefs That Will Affect Care: None Current Living Situation: Homeless Other Information That Helps Us Care for You: No Feels Safe at Home: No Is there a partner from a previous relationship who is making you feel unsafe now?: No Any Concerns about Your Family Situation: No Would You Like to Speak to Someone About Your Situation: No Smoking Status: Never smoker Second Hand Exposure: No ; Hx Alcohol Use: No Hx Substance Use: No Review of Systems 2 Review of Systems: All systems reviewed & are unremarkable except as noted in HPI & below Physical Exam Constitutional: WD/WN, vitals as above + ill appearing Eyes: PERRL, conjunctivae normal, anicteric sclerae Neck: trachea midline Respiratory: Auscultation: + diminished lung sounds Cardiovascular: RRR, no murmur, no edema Gastrointestinal (Abdomen): Inspection/Auscultation: abdomen normal to inspection and normal bowel sounds Percussion/Palpation: abdomen soft; abdo men nontender Musculoskeletal: no cyanosis or clubbing, extremities motor strength 5/5 Skin: no rashes, warm and dry Neurologic: awake; no focal motor deficits and not confused Psychiatric: A+Ox3, euthymic affect Results & Data Vital Signs (Past 12 Hours) Vital Signs Temp Pulse Pulse Resp BP Pulse Ox 02/07/20 11:34 36.9 C 65 16 135/70 95 02/07/20 07:31 75 02/07/20 07:08 36.8 C 76 16 144/71 H 91 02/07/20 04:08 36.9 C 64 20 137/68 94 PG Care Time/CCT Total # of Minutes Spent Total Time Spent with Patient: Total time spent is greater than 50% in coordination of care (as documented) at patient's floor/unit and/or counseling patient: Coding Level of Care Code 34906 Inpt Consult Level 5 Diagnoses REGIS (acute kidney injury) N17.9 Hypertension I10 Hypertension type: essential hypertension BPH (benign prostatic hyperplasia) N40.0 Lower urinary tract symptom presence: symptoms absent Hypokalemia E87.6 (1) Hypertension Hypertension type: essential hypertension Qualified Code(s): I10 - Essential (primary) hypertension (2) BPH (benign prostatic hyperplasia) Lower urinary tract symptom presence: symptoms absent Qualified Code(s): N40.0 - Benign prostatic hyperplasia without lower urinary tract symptoms
--- NOTE | 2020-02-07 12:46 | Cardiology Progress Note ---
Date of Service February 07, 2020 Assessment & Plan (1) Atrial flutter: The patient remains in NSR on amiodarone. He is tolerating anticoagulation with Eliquis without difficulty. (2) Cardiomyopathy: Suspect a tachycardic induced cardiomyopathy. Continue carvedilol. Consider up titration of the dose. (3) Pulmonary edema: Compensated at this time. Diuretics on hold due to renal insufficiency. Admission and Anticipated Discharge Date Admission Date: February 01, 2020 Anticipated date of discharge: 02/08/20 Subjective The patient is resting comfortably in bed without complaints of chest pain, dyspnea, or palpitations. Physical Exam Physical Exam: In general this well-developed well-nourished male lying supine in bed without complaints. HEENT exam is negative. Neck is supple with full carotid upstrokes. No obvious bruits. Lungs note decreased breath sounds but no rales, rhonchi, wheezes. Abdomen is soft bruits. Extremities note pitting edema on the hands. There is 1+ pretibial edema. Results & Data ([facility]) Vital Signs (Past 12 Hours) Vital Signs Temp Pulse Pulse Resp BP Pulse Ox 02/07/20 11:34 36.9 C 65 16 135/70 95 02/07/20 07:31 75 02/07/20 07:08 36.8 C 76 16 144/71 H 91 02/07/20 04:08 36.9 C 64 20 137/68 94 Diagnostic Findings alligator trapper notes sinus rhythm several brief episodes of an atrial tachycardia. PG Care Time/CCT Total # of Minutes Spent Total Time Spent with Patient: Total time spent is greater than 50% in coordination of care (as documented) at patient's floor/unit and/or counseling patient: Coding Level of Care Code 84281 Subseq Hosp Care Lvl 3 Diagnoses Atrial flutter I48.92 Atrial flutter type: unspecified Cardiomyopathy I42.9 Cardiomyopathy type: unspecified Pulmonary edema J81.1 (1) Atrial flutter Atrial flutter type: unspecified Qualified Code(s): I48.92 - Unspecified atrial flutter (2) Cardiomyopathy Cardiomyopathy type: unspecified Qualified Code(s): I42.9 - Cardiomyopathy, unspecified
--- NOTE | 2020-02-07 16:25 | Hospitalist Progress Note ---
Date of Service February 07, 2020 Assessment & Plan (1) REGIS (acute kidney injury): Baseline Cr 0.74, continue to monitor off diuretics for continued improvement. Peaked 2.66 [02/03] (diuretics stopped same day). Suspect pre-renal from diuretic use +/- NSTEMI, +/- ATN from poor perfusion. Holding further diuretics. Since renal function is not returning to baseline will repeat UA, US KUB to assess for obstructive cause and consult nephrology. Monitor BMP in AM. (2) Acute respiratory failure with hypoxia: Now resolved on room air Intubated 02/01, extubated 02/03 Initially concern for covid 19 due to rapid decline, suspected PNA on CXR, and homelessness/exposure to traveling contacts, however, biofire positive for entero/rhinovirus and CXR findings consistent with pulmonary edema rather than ARDS therefore test not sent as per current hospital protocol. (3) Atrial flutter: Presented new onset rapid A-flutter not responsive to rate controlling medications with associated CHF. Decompensated with possibly brief run of VT during CODE BLUE on night of admission; intubated and transferred to ICU with subsequent ALE and cardioversion in the morning. TSH WNL. Continue amiodarone 200mg BID. Continue carvedilol for rate control 12.5mg BID. Anticoagulation with Eliquis. (4) Congestive heart failure: Acute systolic congestive heart failure in setting of rapid atrial flutter. ALE - mod-severe global hypokinesis LVEF: 25-30%, no wall motion abnormalities. Improving CXR despite no further diuresis since 02/03. Will continue to hold off lasix and monitor renal function. Net 604ml -ve balance despite no diuretics, no further lasix required currently. Continue carvedilol 12.5mg BID, unable to start ACEi in setting of REGIS. (5) Cardiomyopathy: Secondary to tachyarrhythmia vs. ischemic (no wall motion abnormalities) vs. viral (positive entero/rhinovirus). Plan to repeat TTE as outpatient and f/u cardiology. BB, no ACEi/ARB due to REGIS (6) Demand ischemia: Elevated troponin on admission. Suspected due to demand ischemia in setting of rapid atrial flutter, not ACS. (7) Rheumatoid arthritis: No Enbrel for 6 weeks as forgot to pick it up and then became unwell, will not restart currently given respiratory infection. Stop NSAIDs due to starting Eliquis and reduced renal function. Tramadol prn pain Continue output f/u (8) Hypertension: Stable but labile. Continue outpatient med terazosin 1mg BID. Added carvedilol + amiodarone this admission. hydralazine 10mg IV q4H PRN sBP > 180 (9) Viral infection: Nasal congestion and cough prior to admission. Suspected viral bronchitis. +ve Biofire for entero/rhinovirus. Droplet precautions. (10) Pneumonia: Ruled out (11) Hypokalemia: On outpatient 20 meq PO daily Started KCl 40 meq PO daily Monitor K daily while admitted (12) Anemia: Mild microcytic. Stable. Iron def. (sats 10.8%), restarted on ferrous sulphate. 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 (14) BPH (benign prostatic hyperplasia): Continue terazosin 1mg BID (15) Restless leg syndrome: Holding home Requip, restart if becomes symptomatic or upon discharge (16) DVT prophylaxis: Eliquis Continue PT/OT Admission and Anticipated Discharge Date Admission Date: February 01, 2020 Anticipated date of discharge: 02/08/20 Subjective Patient reports ongoing occasional dry cough. No shortness of breath or chest pain. Feels ready to get our of hospital. Continues to pass urine without difficulty. No fever or chills. No dysuria or suprapubic pain. Normal bowel movements as per patient. Review of Systems Review of Systems: All systems reviewed & are unremarkable except as noted in HPI & below Physical Exam Constitutional: well developed; + not well nourished and no acute distress Eyes: + anicteric sclerae; normal pupil size ENMT: external ear and nose normal, oropharynx normal Respiratory: normal respiratory effort; no respiratory distress and no labored breathing Auscultation: no diminished lung sounds, no crackles, no rales, no rhonchi and no wheezes Cardiovascular: Rate/Rhythm: regular rate and regular rhythm Heart Sounds: no murmur Extremities: normal capillary refill and + pedal edema (trace b/l equal); no calf tenderness Chest (Breasts): Chest: normal inspection of chest Gastrointestinal (Abdomen): Inspection/Auscultation: normal bowel sounds; abdomen not distended Percussion/Palpation: abdomen soft; abdomen nontender Musculoskeletal: Extremities: + extremities abnormal to inspection (chronic deformities of hands/feet consistent with RA, contractures at knees) Neurologic: moves all extremities and awake; not confused Psychiatric: A+Ox3, euthymic affect Results & Data Results & Data ([facility]) Vital Signs (Past 12 Hours) Vital Signs Temp Pulse Pulse Resp BP Pulse Ox 02/07/20 15:34 36.4 C L 67 18 157/73 H 97 02/07/20 11:34 36.9 C 65 16 135/70 95 02/07/20 07:31 75 02/07/20 07:08 36.8 C 76 16 144/71 H 91 PG Care Time/CCT Total # of Minutes Spent Total Time Spent with Patient: Total time spent is greater than 50% in coordination of care (as documented) at patient's floor/unit and/or counseling patient: Coding Level of Care Code 11531 Subseq Hosp Care Lvl 2 Diagnoses REGIS (acute kidney injury) N17.9 Acute respiratory failure with hypoxia J96.01 Atrial flutter I48.92 Atrial flutter type: unspecified Congestive heart failure I50.21 Heart failure chronicity: acute Heart failure type: systolic Cardiomyopathy I42.9 Cardiomyopathy type: unspecified Demand ischemia I24.8 Rheumatoid arthritis M06.9 Rheumatoid arthritis location: unspecified site Rheumatoid factor presence: unspecified presence Hypertension I10 Hypertension type: essential hypertension Viral infection B34.9 Pneumonia J18.9 Laterality: right Lung location: lower lobe of lung Pneumonia type: due to unspecified organism Hypokalemia E87.6 Anemia D50.8 Anemia type: iron deficiency Iron deficiency anemia type: inadequate dietary iron intake Homeless single person Z59.0 BPH (benign prostatic hyperplasia) N40.0 Lower urinary tract symptom presence: symptoms absent Restless leg syndrome G25.81 DVT prophylaxis Z29.9 (1) BPH (benign prostatic hyperplasia) Lower urinary tract symptom presence: symptoms absent Qualified Code(s): N40.0 - Benign prostatic hyperplasia without lower urinary tract symptoms (2) Rheumatoid arthritis Rheumatoid arthritis location: unspecified site Rheumatoid factor presence: unspecified presence Qualified Code(s): M06.9 - Rheumatoid arthritis, unspecified (3) Congestive heart failure Heart failure chronicity: acute Heart failure type: systolic Qualified Code(s): I50.21 - Acute systolic (congestive) heart failure (4) Anemia Anemia type: iron deficiency Iron deficiency anemia type: inadequate dietary iron intake Qualified Code(s): D50.8 - Other iron deficiency anemias (5) Atrial flutter Atrial flutter type: unspecified Qualified Code(s): I48.92 - Unspecified atrial flutter (6) Hypertension Hypertension type: essential hypertension Qualified Code(s): I10 - Essential (primary) hypertension (7) Cardiomyopathy Cardiomyopathy type: unspecified Qualified Code(s): I42.9 - Cardiomyopathy, unspecified (8) Pneumonia Laterality: right Lung location: lower lobe of lung Pneumonia type: due to unspecified organism Qualified Code(s): J18.9 - Pneumonia, unspecified organism
[2020-02-07] MEDS: CEROVITE ADV FORMULA TAB PO SCH (20:52)
[2020-02-07] MEDS: TRAMADOL HCL 50 MG TABLET PO PRN (20:58)
[2020-02-08 06:49] LABS: BUN Creatinine Ratio 8.6 (10-20); Creatinine Clr Calc Pharmacy 32.5 ml/min; Est GFR (African American) 32.3; Est GFR (Non-African American) 27.9; Potassium 3.7 mmol/L (3.5-5.1)
[2020-02-08] MEDS: APIXABAN 5 MG TABLET PO SCH ×2 (08:33→20:08)
[2020-02-08] MEDS: carvediloL 12.5 MG TAB PO SCH ×2 (08:33→20:09)
[2020-02-08] MEDS: AMIODARONE 200 MG TAB PO SCH ×2 (08:34→16:08)
[2020-02-08] MEDS: POTASSIUM CHLORIDE 20 MEQ TABCR PO SCH (08:34)
[2020-02-08] MEDS: FERROUS SULFATE 325 MG TAB PO SCH (08:34)
[2020-02-08] MEDS: TERAZOSIN HCL 1 MG CAP PO SCH ×2 (08:35→20:09)
[2020-02-08] MEDS: DiphenhydrAMINE 2%/ZINC 0.1% CREAM 28GM TUBE EXT PRN (08:35)
[2020-02-08] MEDS ORDERED: CEROVITE ADV FORMULA TAB PO SCH (09:00)
--- NOTE | 2020-02-08 10:32 | Nephrology Progress Note ---
Date of Service February 08, 2020 Assessment & Plan (1) REGIS (acute kidney injury): 64 Year old male admitted to the hospital with AFib with RVR requiring intubation and successfully extubated after 2 days. Developed REGIS, creatinine peaked to 2.7 which currently improving and seems to be leveling off. Prior to the episode of REGIS, renal function was otherwise normal with baseline creatinine 0.8-0.9. Urinalysis and renal ultrasound unremarkable. REGIS most likely secondary to ATN in the setting hypotension and AFib with RVR. --renal function slow to improve after ATN, creatinine leveled at no further improvement over last few days --advised to avoid all NSAIDs including naproxen which he has been taking previously, okay to use the Tramadol, Prednisone are Tylenol as needed --keep well hydrated --monitor renal function with daily panel while inpatient --if discharge anticipated will need outpatient monitoring renal function closely follow-up can be arranged at outpatient clinic in 4-6 weeks with labs prior Will Follow while inpatient (2) Hypertension: (3) BPH (benign prostatic hyperplasia): (4) Hypokalemia: Elier Hernandez was seen and he has this morning. Overall feeling well without any symptoms. No shortness of breath or chest pain. Blood pressure has been running high. Renal function remains stable creatinine 2.2-2.3 over last 3 days without any further improvement in or worsening, electrolyte acceptable. Has been non- oliguric. Review of Systems Review of Systems: All systems reviewed & are unremarkable except as noted in HPI & below Physical Exam Constitutional: WD/WN, vitals as above no acute distress Respiratory: normal respiratory effort, lungs clear to auscultation Cardiovascular: RRR, no murmur, no edema Skin: no rashes, warm and dry Neurologic: awake; no focal motor deficits and not confused Psychiatric: A+Ox3, euthymic affect Results & Data Vital Signs (Past 12 Hours) Vital Signs Temp Pulse Pulse Resp BP Pulse Ox 02/08/20 07:00 57 L 02/08/20 06:52 36.8 C 72 18 166/76 H 97 02/08/20 03:13 36.6 C 68 18 164/79 H 95 02/08/20 01:27 67 02/07/20 23:13 36.8 C 64 18 153/73 H 92 PG Care Time/CCT Total # of Minutes Spent Total Time Spent with Patient: Total time spent is greater than 50% in coordination of care (as documented) at patient's floor/unit and/or counseling patient: Coding Level of Care Code 86556 Subseq Hosp Care Lvl 3 Diagnoses REGIS (acute kidney injury) N17.9 Hypertension I10 Hypertension type: essential hypertension BPH (benign prostatic hyperplasia) N40.0 Lower urinary tract symptom presence: symptoms absent Hypokalemia E87.6 (1) Hypertension Hypertension type: essential hypertension Qualified Code(s): I10 - Essential (primary) hypertension (2) BPH (benign prostatic hyperplasia) Lower urinary tract symptom presence: symptoms absent Qualified Code(s): N40.0 - Benign prostatic hyperplasia without lower urinary tract symptoms
--- NOTE | 2020-02-08 11:32 | Cardiology Progress Note ---
Date of Service February 08, 2020 Assessment & Plan (1) Atrial flutter: The patient remains in NSR on amiodarone. He is demonstrating brief episodes of an atrial tachycardia. He is tolerating anticoagulation with Eliquis without difficulty. (2) Cardiomyopathy: Suspect a tachycardic induced cardiomyopathy. Continue carvedilol. Consider up titration. (3) Pulmonary edema: Compensated at this time. Diuretics on hold due to renal insufficiency. Admission and Anticipated Discharge Date Admission Date: February 01, 2020 Anticipated date of discharge: 02/08/20 Subjective The patient is resting comfortably in bed without complaints of chest pain, dyspnea, or palpitations. Physical Exam Physical Exam: In general this well-developed well-nourished male lying supine in bed without complaints. HEENT exam is negative. Neck is supple with full carotid upstrokes. No obvious bruits. Lungs note decreased breath sounds but no rales, rhonchi, wheezes. Abdomen is soft bruits. Extremities note pitting edema on the hands. There is 1+ pretibial edema. Results & Data ([facility]) Vital Signs (Past 12 Hours) Vital Signs Temp Pulse Pulse Resp BP Pulse Ox 02/08/20 07:00 57 L 02/08/20 06:52 36.8 C 72 18 166/76 H 97 02/08/20 03:13 36.6 C 68 18 164/79 H 95 02/08/20 01:27 67 Diagnostic Findings Telemetry notes sinus rhythm and numerous brief episodes of an atrial tachycardia. PG Care Time/CCT Total # of Minutes Spent Total Time Spent with Patient: Total time spent is greater than 50% in coord ination of care (as documented) at patient's floor/unit and/or counseling patient: Coding Level of Care Code 63916 Subseq Hosp Care Lvl 3 Diagnoses Atrial flutter I48.92 Atrial flutter type: unspecified Cardiomyopathy I42.9 Cardiomyopathy type: unspecified Pulmonary edema J81.1 (1) Atrial flutter Atrial flutter type: unspecified Qualified Code(s): I48.92 - Unspecified atrial flutter (2) Cardiomyopathy Cardiomyopathy type: unspecified Qualified Code(s): I42.9 - Cardiomyopathy, unspecified
[2020-02-08] MEDS: TRAMADOL HCL 50 MG TABLET PO PRN (14:48)
[2020-02-08] MEDS: CEROVITE ADV FORMULA TAB PO SCH (20:08)
--- NOTE | 2020-02-08 21:27 | Hospitalist Progress Note ---
Date of Service February 08, 2020 Assessment & Plan (1) REGIS (acute kidney injury): Baseline Cr 0.74, continue to monitor off diuretics for continued improvement. Peaked 2.66 [02/03] (diuretics stopped same day). Suspect pre-renal from diuretic use +/- NSTEMI, +/- ATN from poor perfusion. Appears to have stabilized off around 2.3, suspected mainly ATN at this time as discussed with Dr Heart Appreciate nephrology management and recommendations. Holding further diuretics, aim for net equal fluid balance. Monitor BMP in AM. (2) Acute respiratory failure with hypoxia: Now resolved on room air Intubated 02/01, extubated 02/03 Initially concern for covid 19 due to rapid decline, suspected PNA on CXR, and homelessness/exposure to traveling contacts, however, biofire positive for entero/rhinovirus and CXR findings consistent with pulmonary edema rather than ARDS. (3) Atrial flutter: Presented new onset rapid A-flutter not responsive to rate controlling medications with associated CHF. Decompensated with possibly brief run of VT during CODE BLUE on night of admission; intubated and transferred to ICU with subsequent ALE and cardioversion in the morning. TSH WNL. Continue amiodarone 200mg BID. Continue carvedilol for rate control 12.5mg BID. Anticoagulation with Eliquis (new this admission). (4) Congestive heart failure: Acute systolic congestive heart failure in setting of rapid atrial flutter. ALE - mod-severe global hypokinesis LVEF: 25-30%, no wall motion abnormalities. Improving CXR this morning despite no further diuresis since 02/03. Will continue to hold off lasix and monitor renal function. Net 330ml -ve balance despite no diuretics, no further lasix required currently. Continue carvedilol 25mg BID, unable to start ACEi in setting of REGIS. (5) Cardiomyopathy: Secondary to tachyarrhythmia vs. ischemic (no wall motion abnormalities) vs. viral (positive entero/rhinovirus). Plan to repeat TTE as outpatient and f/u cardiology. BB, no ACEi/ARB due to REGIS (6) Demand ischemia: Elevated troponin on admission. Suspected due to demand ischemia in setting of rapid atrial flutter. (7) Rheumatoid arthritis: No Enbrel for 6 weeks as forgot to pick it up and then became unwell, will not restart currently given respiratory infection. Stop NSAIDs due to starting Eliquis and reduced renal function. Tramadol prn pain Continue output f/u (8) Hypertension: Increasingly appears elevated will up titrate carvedilol from 12.5 to 25 mg BID. Continue outpatient med terazosin 1mg BID. New medications of carvedilol + amiodarone this admission. hydralazine 10mg IV q4H PRN sBP > 180 (9) Viral infection: Nasal congestion and cough prior to admission. Suspected viral bronchitis. +ve Biofire for entero/rhinovirus. Continue droplet precautions until discharge. (10) Pneumonia: Ruled out (11) Hypokalemia: On outpatient 20 meq PO daily Continue KCl 40 meq PO daily Monitor K daily while admitted (12) Anemia: Mild microcytic. Stable. Iron def. (sats 10.8%), restarted on ferrous sulphate. 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 (14) BPH (benign prostatic hyperplasia): Continue terazosin 1mg BID (15) Restless leg syndrome: Holding home Requip, restart if becomes symptomatic or upon discharge (16) DVT prophylaxis: Eliquis Will need repeat PT eval as per case management. Admission and Anticipated Discharge Date Admission Date: February 01, 2020 Patient is medically stable at this time pending safe place to be discharged. Unfortunately in setting of COVID-19 pandemic this prior accommodation in [facility] may not be possible given he has had a viral respiratory illness. Working with case management to try to arrange this. Anticipated date of discharge: 02/08/20 Subjective Patient reports ongoing occasional dry cough. No shortness of breath or chest pain. Feels ready to get our of hospital. Continues to pass urine without difficulty. No fever or chills. No dysuria or suprapubic pain. Normal bowel movements as per patient. Review of Systems Review of Systems: All systems reviewed & are unremarkable except as noted in HPI & below Physical Exam Constitutional: well developed; + not well nourished and no acute distress Eyes: + anicteric sclerae; normal pupil size ENMT: external ear and nose normal, oropharynx normal Respiratory: normal respiratory effort; no respiratory distress and no labored breathing Auscultation: no diminished lung sounds, no crackles, no rales, no rhonchi and no wheezes Cardiovascular: Rate/Rhythm: regular rate and regular rhythm Heart Sounds: no murmur Extremities: normal capillary refill and + pedal edema (trace b/l equal); no calf tenderness Chest (Breasts): Chest: normal inspection of chest Gastrointestinal (Abdomen): Inspection/Auscultation: normal bowel sounds; abdomen not distended Percussion/Palpation: abdomen soft; abdomen nontender Musculoskeletal: Extremities: + extremities abnormal to inspection (chronic deformities of hands/feet consistent with RA, contractures at knees) Neurologic: moves all extremities and awake; not confused Psychiatric: A+Ox3, euthymic affect Results & Data Results & Data ([facility]) Vital Signs (Past 12 Hours) Vital Signs Temp Pulse Pulse Resp BP Pulse Ox 02/08/20 19:26 37.0 C 72 18 165/76 H 95 02/08/20 15:10 37.1 C 75 18 132/72 96 02/08/20 14:46 68 02/08/20 11:43 36.8 C 70 18 167/77 H 96 PG Care Time/CCT Total # of Minutes Spent Total Time Spent with Patient: Total time spent is greater than 50% in coordination of care (as documented) at patient's floor/unit and/or counseling patient: Coding Level of Care Code 69658 Subseq Hosp Care Lvl 2 Diagnoses REGIS (acute kidney injury) N17.9 Acute respiratory failure with hypoxia J96.01 Atrial flutter I48.92 Atrial flutter type: unspecified Congestive heart failure I50.21 Heart failure chronicity: acute Heart failure type: systolic Cardiomyopathy I42.9 Cardiomyopathy type: unspecified Demand ischemia I24.8 Rheumatoid arthritis M06.9 Rheumatoid arthritis location: unspecified site Rheumatoid factor presence: unspecified presence Hypertension I10 Hypertension type: essential hypertension Viral infection B34.9 Pneumonia J18.9 Laterality: right Lung location: lower lobe of lung Pneumonia type: due to unspecified organism Hypokalemia E87.6 Anemia D50.8 Anemia type: iron deficiency Iron deficiency anemia type: inadequate dietary iron intake Homeless single person Z59.0 BPH (benign prostatic hyperplasia) N40.0 Lower urinary tract symptom presence: symptoms absent Restless leg syndrome G25.81 DVT prophylaxis Z29.9 (1) BPH (benign prostatic hyperplasia) Lower urinary tract symptom presence: symptoms absent Qualified Code(s): N40.0 - Benign prostatic hyperplasia without lower urinary tract symptoms (2) Rheumatoid arthritis Rheumatoid arthritis location: unspecified site Rheumatoid factor presence: unspecified presence Qualified Code(s): M06.9 - Rheumatoid arthritis, unspec ified (3) Congestive heart failure Heart failure chronicity: acute Heart failure type: systolic Qualified Code(s): I50.21 - Acute systolic (congestive) heart failure (4) Anemia Anemia type: iron deficiency Iron deficiency anemia type: inadequate dietary iron intake Qualified Code(s): D50.8 - Other iron deficiency anemias (5) Atrial flutter Atrial flutter type: unspecified Qualified Code(s): I48.92 - Unspecified atrial flutter (6) Hypertension Hypertension type: essential hypertension Qualified Code(s): I10 - Essential (primary) hypertension (7) Cardiomyopathy Cardiomyopathy type: unspecified Qualified Code(s): I42.9 - Cardiomyopathy, unspecified (8) Pneumonia Laterality: right Lung location: lower lobe of lung Pneumonia type: due to unspecified organism Qualified Code(s): J18.9 - Pneumonia, unspecified organism
[2020-02-09 06:29] LABS: Hematocrit (blood only) 32.5 % (42-52); Hemoglobin 10.4 g/dL (14.0-18.0); Mean Corpuscular Hemoglobin 25.6 pg (25-34); Mean Corpuscular Volume 79.9 fL (80-100); Mean Platelet Volume 10.2 fL (7.4-10.4); Platelet Count 309 K/uL (130-400); RDW Coefficient of Variation 15.6 % (11.5-14.5); Red Blood Count 4.07 M/uL (4.7-6.1); White Blood Count 6.23 K/uL (4.8-10.8)
[2020-02-09 07:12] LABS: BUN Creatinine Ratio 9.6 (10-20); Calcium 7.9 mg/dl (8.5-10.1); Creatinine Clr Calc Pharmacy 35.3 ml/min; Est GFR (African American) 35.8; Est GFR (Non-African American) 30.9; Potassium 4.1 mmol/L (3.5-5.1)
[2020-02-09] MEDS: TERAZOSIN HCL 1 MG CAP PO SCH ×2 (08:22→20:51)
[2020-02-09] MEDS: POTASSIUM CHLORIDE 20 MEQ TABCR PO SCH (08:23)
[2020-02-09] MEDS: APIXABAN 5 MG TABLET PO SCH ×2 (08:23→20:51)
[2020-02-09] MEDS: AMIODARONE 200 MG TAB PO SCH ×2 (08:23→16:57)
[2020-02-09] MEDS: FERROUS SULFATE 325 MG TAB PO SCH (08:23)
[2020-02-09] MEDS ORDERED: LACTATED RINGER'S 1,000 ML IV SCH (09:00)
[2020-02-09] MEDS ORDERED: carvediloL 25 MG TAB PO SCH (09:00)
[2020-02-09] MEDS: AMLODIPINE BESYLATE 5 MG TAB PO SCH (10:04)
--- NOTE | 2020-02-09 11:02 | Nephrology Progress Note ---
Date of Service February 09, 2020 Assessment & Plan (1) REGIS (acute kidney injury): 64 Year old male admitted to the hospital with AFib with RVR requiring intubation and successfully extubated after 2 days. Developed REGIS, creatinine peaked to 2.7 which currently improving and seems to be leveling off. Prior to the episode of REGIS, renal function was otherwise normal with baseline creatinine 0.8-0.9. Urinalysis and renal ultrasound unremarkable. REGIS most likely secondary to ATN in the setting hypotension and AFib with RVR. --renal function slow to improve after ATN, creatinine slightly improved --DC IV fluid --start on Amlodipine 5 mg po/d --advised to avoid all NSAIDs including naproxen which he has been taking previously, okay to use the Tramadol, Prednisone are Tylenol as needed --keep well hydrated --monitor renal function with daily panel while inpatient --if discharge anticipated will need outpatient monitoring renal function closely follow-up can be arranged at outpatient clinic in 4-6 weeks with labs prior Will Follow while inpatient (2) Hypertension: (3) BPH (benign prostatic hyperplasia): (4) Hypokalemia: Elier Hernandez was seen and he has this morning. Overall feeling well except some chest congestion No shortness of breath or chest pain. Blood pressure has been running high. Renal function slightly improved, electrolyte acceptable. Has been non-oliguric. Review of Systems Review of Systems: All systems reviewed & are unremarkable except as noted in HPI & below Physical Exam Constitutional: WD/WN, vitals as above no acute distress Eyes: PERRL, conjunctivae normal, anicteric sclerae Respiratory: Auscultation: + diminished lung sounds and + rales Cardiovascular: RRR, no murmur, no edema Skin: no rashes, warm and dry Neurologic: awake; no focal motor deficits and not confused Psychiatric: A+Ox3, euthymic affect Results & Data Vital Signs (Past 12 Hours) Vital Signs Temp Pulse Pulse Resp BP Pulse Ox 02/09/20 07:27 37.1 C 75 16 173/76 H 95 02/09/20 03:41 67 02/09/20 02:49 36.5 C 108 H 18 155/77 H 96 02/08/20 23:05 37.2 C 66 16 154/76 H 94 PG Care Time/CCT Total # of Minutes Spent Total Time Spent with Patient: Total time spent is greater than 50% in coordination of care (as documented) at patient's floor/unit and/or counseling patient: Coding Level of Care Code 31013 Subseq Hosp Care Lvl 3 Diagnoses REGIS (acute kidney injury) N17.9 Hypertension I10 Hypertension type: essential hypertension BPH (benign prostatic hyperplasia) N40.0 Lower urinary tract symptom presence: symptoms absent Hypokalemia E87.6 (1) Hypertension Hypertension type: essential hypertension Qualified Code(s): I10 - Essential (primary) hypertension (2) BPH (benign prostatic hyperplasia) Lower urinary tract symptom presence: symptoms absent Qualified Code(s): N40.0 - Benign prostatic hyperplasia without lower urinary tract symptoms
[2020-02-09] MEDS: TRAMADOL HCL 50 MG TABLET PO PRN (14:09)
[2020-02-09] MEDS: carvediloL 12.5 MG TAB PO SCH (20:46)
[2020-02-09] MEDS: CEROVITE ADV FORMULA TAB PO SCH (20:52)
--- NOTE | 2020-02-09 23:58 | Hospitalist Progress Note ---
Date of Service February 09, 2020 Assessment & Plan (1) REGIS (acute kidney injury): Baseline Cr 0.74, continue to monitor off diuretics for continued improvement. Peaked 2.66 [02/03] (diuretics stopped same day). Suspect pre-renal from diuretic use +/- NSTEMI, +/- ATN from poor perfusion. Appears to have stabilized off around 2.2-2.3, suspected mainly ATN at this time as discussed with Dr Heart Appreciate nephrology management and recommendations. Holding further diuretics, aim for net equal fluid balance. Monitor BMP in AM. (2) Acute respiratory failure with hypoxia: Now resolved on room air Intubated 02/01, extubated 02/03 Initially concern for covid 19 due to rapid decline, suspected PNA on CXR, and homelessness/exposure to traveling contacts, however, biofire positive for entero/rhinovirus and CXR findings consistent with pulmonary edema rather than ARDS therefore test not sent as per current hospital protocol. (3) Atrial flutter: Presented new onset rapid A-flutter not responsive to rate controlling medications with associated CHF. Decompensated with possibly brief run of VT during CODE BLUE on night of admission; intubated and transferred to ICU with subsequent ALE and cardioversion in the morning. TSH WNL. Continue amiodarone 200mg BID. Continue carvedilol for rate control 25mg BID. Anticoagulation with Eliquis (new this admission). (4) Congestive heart failure: Acute systolic congestive heart failure in setting of rapid atrial flutter. ALE - mod-severe global hypokinesis LVEF: 25-30%, no wall motion abnormalities. Improving CXR this morning despite no further diuresis since 02/03. Will continue to hold off lasix and monitor renal function. Net 1016ml -ve balance despite no diuretics, no further lasix required currently. Continue carvedilol 25mg BID, unable to start ACEi in setting of REGIS. (5) Cardiomyopathy: Secondary to tachyarrhythmia vs. ischemic (no wall motion abnormalities) v s. viral (positive entero/rhinovirus). Plan to repeat TTE as outpatient and f/u cardiology. BB, no ACEi/ARB due to REGIS (6) Demand ischemia: Elevated troponin on admission. Suspected due to demand ischemia in setting of rapid atrial flutter, not ACS. (7) Rheumatoid arthritis: No Enbrel for 6 weeks as forgot to pick it up and then became unwell, will not restart currently given respiratory infection. Stop NSAIDs due to starting Eliquis and reduced renal function. Tramadol prn pain Continue output f/u (8) Hypertension: Continue outpatient med terazosin 1mg BID. New medications of carvedilol + amiodarone this admission. Amlodipine added by nephrology given ongoing elevated BP. hydralazine 10mg IV q4H PRN sBP > 180 (9) Viral infection: Nasal congestion and cough prior to admission. Suspected viral bronchitis. +ve Biofire for entero/rhinovirus. Continue droplet precautions until discharge. (10) Pneumonia: Ruled out (11) Hypokalemia: On outpatient 20 meq PO daily Continue KCl 40 meq PO daily Monitor K daily while admitted (12) Anemia: Mild microcytic. Stable. Iron def. (sats 10.8%), restarted on ferrous sulphate. 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 (14) BPH (benign prostatic hyperplasia): Continue terazosin 1mg BID (15) Restless leg syndrome: Holding home Requip, restart if becomes symptomatic or upon discharge (16) DVT prophylaxis: Eliquis Medically stable for discharge however difficulty discharging back to [facility] if unable to accept with his repiratory illness. Admission and Anticipated Discharge Date Admission Date: February 01, 2020 Anticipated date of discharge: 02/08/20 Subjective Patient reports feeling well. Cough resolved at this time. No chest pain or shortness of breath. He reports passing good amounts of urine without dysuria. Review of Systems Review of Systems: All systems reviewed & are unremarkable except as noted in HPI & below Physical Exam Constitutional: well developed; + not well nourished and no acute distress Respiratory: normal respiratory effort; no respiratory distress and no labored breathing Auscultation: no diminished lung sounds, no crackles, no rales, no rhonchi and no wheezes Cardiovascular: Rate/Rhythm: regular rate and regular rhythm Heart Sounds: no murmur Extremities: normal capillary refill and + pedal edema (trace b/l equal); no calf tenderness Gastrointestinal (Abdomen): Inspection/Auscultation: normal bowel sounds; abdomen not distended Percussion/Palpation: abdomen soft; abdomen nontender Musculoskeletal: Extremities: + extremities abnormal to inspection (chronic deformities of hands/feet consistent with RA, contractures at knees) Neurologic: moves all extremities and awake; not confused Psychiatric: A+Ox3, euthymic affect Results & Data Results & Data ([facility]) Vital Signs (Past 12 Hours) Vital Signs Temp Pulse Pulse Resp BP BP Pulse Ox 02/09/20 23:04 36.5 C 58 L 18 134/64 99 02/09/20 18:28 37 C 60 16 114/68 94 02/09/20 16:56 70 16 95 02/09/20 16:00 59 L 02/09/20 15:16 36.6 C 67 16 103/63 98 PG Care Time/CCT Total # of Minutes Spent Total Time Spent with Patient: Total time spent is greater than 50% in coordination of care (as documented) at patient's floor/unit and/or counseling patient: Coding Level of Care Code 64188 Subseq Hosp Care Lvl 2 Diagnoses REGIS (acute kidney injury) N17.9 Acute respiratory failure with hypoxia J96.01 Atrial flutter I48.92 Atrial flutter type: unspecified Congestive heart failure I50.21 Heart failure chronicity: acute Heart failure type: systolic Cardiomyopathy I42.9 Cardiomyopathy type: unspecified Demand ischemia I24.8 Rheumatoid arthritis M06.9 Rheumatoid arthritis location: unspecified site Rheumatoid factor presence: unspecified presence Hypertension I10 Hypertension type: essential hypertension Viral infection B34.9 Pneumonia J18.9 Laterality: right Lung location: lower lobe of lung Pneumonia type: due to unspecified organism Hypokalemia E87.6 Anemia D50.8 Anemia type: iron deficiency Iron deficiency anemia type: inadequate dietary iron intake Homeless single person Z59.0 BPH (benign prostatic hyperplasia) N40.0 Lower urinary tract symptom presence: symptoms absent Restless leg syndrome G25.81 DVT prophylaxis Z29.9 (1) BPH (benign prostatic hyperplasia) Lower urinary tract symptom presence: symptoms absent Qualified Code(s): N40.0 - Benign prostatic hyperplasia without lower urinary tract symptoms (2) Rheumatoid arthritis Rheumatoid arthritis location: unspecified site Rheumatoid factor presence: unspecified presence Qualified Code(s): M06.9 - Rheumatoid arthritis, unspecified (3) Congestive heart failure Heart failure chronicity: acute Heart failure type: systolic Qualified Code(s): I50.21 - Acute systolic (congestive) heart failure (4) Anemia Anemia type: iron deficiency Iron deficiency anemia type: inadequate dietary iron intake Qualified Code(s): D50.8 - Other iron deficiency anemias (5) Atrial flutter Atrial flutter type: unspecified Qualified Code(s): I48.92 - Unspecified atrial flutter (6) Hypertension Hypertension type: essential hypertension Qualified Code(s): I10 - Essential (primary) hypertension (7) Cardiomyopathy Cardiomyopathy type: unspecified Qualified Code(s): I42.9 - Cardiomyopathy, unspecified (8) Pneumonia Laterality: right Lung location: lower lobe of lung Pneumonia type: due to unspecified organism Qualified Code(s): J18.9 - Pneumonia, unspecified organism
[2020-02-10 06:39] LABS: Calcium 7.9 mg/dl (8.5-10.1); Creatinine Clr Calc Pharmacy 30.8 ml/min; Est GFR (African American) 30.3; Est GFR (Non-African American) 26.2; Potassium 4.2 mmol/L (3.5-5.1)
[2020-02-10] MEDS: AMIODARONE 200 MG TAB PO SCH ×2 (07:54→18:17)
[2020-02-10] MEDS: carvediloL 12.5 MG TAB PO SCH ×2 (07:55→20:53)
[2020-02-10] MEDS: APIXABAN 5 MG TABLET PO SCH ×2 (07:55→20:53)
[2020-02-10] MEDS: POTASSIUM CHLORIDE 10 MEQ TABCR PO SCH (07:56)
[2020-02-10] MEDS: TERAZOSIN HCL 1 MG CAP PO SCH ×2 (07:56→20:53)
[2020-02-10] MEDS: FERROUS SULFATE 325 MG TAB PO SCH (07:56)
[2020-02-10] MEDS: AMLODIPINE BESYLATE 5 MG TAB PO SCH (07:56)
[2020-02-10] MEDS ORDERED: IRON SUCROSE 200 MG in 0.9 % SODIUM CHLORIDE 100 ML IV SCH (08:45)
--- NOTE | 2020-02-10 10:25 | Nephrology Progress Note ---
Date of Service February 10, 2020 Assessment & Plan (1) REGIS (acute kidney injury): 64 Year old male admitted to the hospital with AFib with RVR requiring intubation and successfully extubated after 2 days. Developed REGIS, creatinine peaked to 2.7 which currently improving and seems to be leveling off. Prior to the episode of REGIS, renal function was otherwise normal with baseline creatinine 0.8-0.9. Urinalysis and renal ultrasound unremarkable. REGIS most likely secondary to ATN in the setting hypotension and AFib with RVR. --renal doppler as cr worsened again with high BP --continue on Amlodipine 5 mg po/d --advised to avoid all NSAIDs including naproxen which he has been taking previ ously, okay to use the Tramadol, Prednisone are Tylenol as needed --keep well hydrated --monitor renal function with daily panel while inpatient --if discharge anticipated will need outpatient monitoring renal function closely follow-up can be arranged at outpatient clinic in 4-6 weeks with labs prior Will Follow (2) Hypertension: (3) BPH (benign prostatic hyperplasia): (4) Hypokalemia: Elier Hernandez was seen and examined this morning. Overall feeling well. No shortness of breath or chest pain. Blood pressure high. Renal function slightly worsened again, electrolyte acceptable. Has been non-oliguric. Review of Systems Review of Systems: All systems reviewed & are unremarkable except as noted in HPI & below Physical Exam Constitutional: WD/WN, vitals as above no acute distress Respiratory: normal respiratory effort, lungs clear to auscultation Auscultation: + diminished lung sounds Cardiovascular: RRR, no murmur, no edema Skin: no rashes, warm and dry Neurologic: awake; no focal motor deficits and not confused Psychiatric: A+Ox3, euthymic affect Results & Data Vital Signs (Past 12 Hours) Vital Signs Temp Pulse Resp BP BP Pulse Ox 02/10/20 07:10 36.5 C 72 18 162/73 H 100 02/09/20 23:04 36.5 C 58 L 18 134/64 99 PG Care Time/CCT Total # of Minutes Spent Total Time Spent with Patient: Total time spent is greater than 50% in coordination of care (as documented) at patient's floor/unit and/or counseling patient: Coding Level of Care Code 67655 Subseq Hosp Care Lvl 3 Diagnoses REGIS (acute kidney injury) N17.9 Hypertension I10 Hypertension type: essential hypertension BPH (benign prostatic hyperplasia) N40.0 Lower urinary tract symptom presence: symptoms absent Hypokalemia E87.6 (1) Hypertension Hypertension type: essential hypertension Qualified Code(s): I10 - Essential (primary) hypertension (2) BPH (benign prostatic hyperplasia) Lower urinary tract symptom presence: symptoms absent Qualified Code(s): N40.0 - Benign prostatic hyperplasia without lower urinary tract symptoms
--- NOTE | 2020-02-10 14:21 | Ultrasound Report ---
US duplex renal artery CLINICAL HISTORY: 64 years-old Male presenting with liliana,resistant hypertension. TECHNIQUE: Real-time grayscale and color and spectral Doppler ultrasound imaging of the kidneys was p erformed. COMPARISON: 02/07/2020. FINDINGS: RIGHT: Normal echogenicity with preserved corticomedullary differentiation. Normal cortical thickness. Right kidney measures 11.6 cm. No hydronephrosis. No convincing evidence of calculus or mass. Spectral analysis: Intrarenal resistive indices range from 0.6 to 0.74. Normal intrarenal arterial waveforms. Renal gustabo ry patent with peak systolic velocity 98 cm/s proximally, 61 cm/s in the midportion, and 59 cm/s dist ally. Renal vein patent. LEFT: Normal echogenicity with preserved corticomedullary differentiation. Normal cortical thickness. Left kidney measures 13.1 cm. No hydronephrosis. No convincing evidence of calculus or mass. Spectral analysis: Intrarenal resistive indices range from 0.67 to 0.77. Normal intrarenal arterial waveforms. Renal art roberto patent with peak systolic velocity 193 cm/s proximally, 69 cm/s in the midportion, and 41 cm/s di stally. Renal vein patent. Abdominal aorta: Patent. Peak systolic velocity 145 cm/s. Ratio of right renal artery PSV/aortic PSV: 0.68. Ratio of left renal artery PSV/aortic PSV: 1.33. Bladder: Not interrogated. Other: None. Reference ranges: Normal main renal artery peak systolic velocity less than 180 cm/s. Ratio of renal artery PSV to aort ic PSV less than 3.5 equates to normal or less than 60% stenosis. Only one of the two criteria listed needs to be met for diagnosis. IMPRESSION: 1. 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 2. Otherwise normal examination. No hydronephrosis. ACT 112: Negative or not required by law. Electronically signed by: Cresencio Rodrigues M.D. 02/10/2020 2:19 PM
[2020-02-10] MEDS: CEROVITE ADV FORMULA TAB PO SCH (20:53)
--- NOTE | 2020-02-10 23:59 | Hospitalist Progress Note ---
Date of Service February 10, 2020 Assessment & Plan (1) REGIS (acute kidney injury): Baseline Cr 0.74, continue to monitor off diuretics for continued improvement. Peaked 2.66 [02/03] (diuretics stopped same day). Unfortunately increasing today again to 2.5.. Plan to monitor off IV fluids for now but suspect some degree of post ATN diuresis given ongoing negative fluid balance. US doppler of renal arteries planned. Encouraged hydration to patient. Appreciate ongoing nephrology management and recommendations. Monitor BMP in AM. (2) Acute respiratory failure with hypoxia: Now resolved on room air Intubated 02/01, extubated 02/03 Initially concern for covid 19 due to rapid decline, suspected PNA on CXR, and homelessness/exposure to traveling contacts, however, biofire positive for entero/rhinovirus and CXR findings consistent with pulmonary edema rather than ARDS therefore test not sent as per current hospital protocol. (3) Atrial flutter: Presented new onset rapid A-flutter not responsive to rate controlling medications with associated CHF. Decompensated with possibly brief run of VT during CODE BLUE on night of admission; intubated and transferred to ICU with subsequent ALE and cardioversion in the morning. TSH WNL. Continue amiodarone 200mg BID. Continue carvedilol for rate control 25mg BID. Anticoagulation with Eliquis (new this admission). (4) Congestive heart failure: Acute systolic congestive heart failure in setting of rapid atrial flutter. ALE - mod-severe global hypokinesis LVEF: 25-30%, no wall motion abnormalities. Continues to have net fluid balance by charting without diuretics suggesting post ATN diuresis. Continue carvedilol 25mg BID, unable to start ACEi in setting of REGIS. (5) Cardiomyopathy: Secondary to tachyarrhythmia vs. ischemic (no wall motion abnormalities) vs. viral (positive entero/rhinovirus). Plan to repeat TTE as outpatient and f/u cardiology. BB, no ACEi/ARB due to REGIS (6) Demand ischemia: Elevated troponin on admission. Suspected due to demand ischemia in setting of rapid atrial flutter, not ACS. (7) Rheumatoid arthritis: No Enbrel for 6 weeks as forgot to pick it up and then became unwell, will not restart currently given respiratory infection. Stop NSAIDs due to starting Eliquis and reduced renal function. Tramadol prn pain Continue output f/u (8) Hypertension: Continue outpatient med terazosin 1mg BID. New medications of carvedilol, amiodarone and amlodipine this admission. hydralazine 10mg IV q4H PRN sBP > 180 (9) Viral infection: Nasal congestion and cough prior to admission. Suspected viral bronchitis. +ve Biofire for entero/rhinovirus. Can discontinue droplet precautinos at this time as no ongoing cough. (10) Pneumonia: Ruled out (11) Hypokalemia: On outpatient 20 meq PO daily Continue KCl 40 meq PO daily Monitor K daily while admitted (12) Anemia: Mild microcytic. Stable. Iron def. (sats 10.8%), restarted on ferrous sulphate. 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 (14) BPH (benign prostatic hyperplasia): Continue terazosin 1mg BID (15) Restless leg syndrome: Holding home Requip, restart if becomes symptomatic or upon discharge (16) DVT prophylaxis: Eliquis As Cr increasing no longer is medically stable for discharge. Will continue to monitor. Admission and Anticipated Discharge Date Admission Date: February 01, 2020 Anticipated date of discharge: 02/11/20 Subjective No acute issues overnight. No questions or concerns from patient. Passing good amounts of urine. Reports drinking well although < 1L recorded. No chest pain or difficulty breathing. He reports managing to transfer to his wheelchair with physical therapy; slightly weaker than his baseline but feels he would be able to cope back at the hotel. Physical Exam Constitutional: well developed; + not well nourished and no acute distress Respiratory: normal respiratory effort; no respiratory distress and no labored breathing Auscultation: no diminished lung sounds, no crackles, no rales, no rhonchi and no wheezes Cardiovascular: Rate/Rhythm: regular rate and regular rhythm Heart Sounds: no murmur Extremities: normal capillary refill and + pedal edema (trace b/l equal); no calf tenderness Gastrointestinal (Abdomen): Inspection/Auscultation: normal bowel sounds; abdomen not distended Percussion/Palpation: abdomen soft; abdomen nontender Musculoskeletal: Extremities: + extremities abnormal to inspection (chronic deformities of hands/feet consistent with RA, contractures at knees) Neurologic: moves all extremities and awake; not confused Psychiatric: A+Ox3, euthymic affect Results & Data Results & Data ([facility]) Vital Signs (Past 12 Hours) Vital Signs Temp Pulse Resp BP BP Pulse Ox 02/10/20 22:56 36.9 C 61 20 159/70 H 96 02/10/20 20:52 86 147/65 H 02/10/20 15:18 36.7 C 64 19 152/72 H 96 PG Care Time/CCT Total # of Minutes Spent Total Time Spent with Patient: Total time spent is greater than 50% in coordina tion of care (as documented) at patient's floor/unit and/or counseling patient: Coding Level of Care Code 82001 Subseq Hosp Care Lvl 2 Diagnoses REGIS (acute kidney injury) N17.9 Acute respiratory failure with hypoxia J96.01 Atrial flutter I48.92 Atrial flutter type: unspecified Congestive heart failure I50.21 Heart failure type: systolic Heart failure chronicity: acute Cardiomyopathy I42.9 Cardiomyopathy type: unspecified Demand ischemia I24.8 Rheumatoid arthritis M06.9 Rheumatoid arthritis location: unspecified site Rheumatoid factor presence: unspecified presence Hypertension I10 Hypertension type: essential hypertension Viral infection B34.9 Pneumonia J18.9 Laterality: right Lung location: lower lobe of lung Pneumonia type: due to unspecified organism Hypokalemia E87.6 Anemia D50.8 Anemia type: iron deficiency Iron deficiency anemia type: inadequate dietary iron intake Homeless single person Z59.0 BPH (benign prostatic hyperplasia) N40.0 Lower urinary tract symptom presence: symptoms absent Restless leg syndrome G25.81 DVT prophylaxis Z29.9 (1) Atrial flutter Atrial flutter type: unspecified Qualified Code(s): I48.92 - Unspecified atrial flutter (2) Congestive heart failure Heart failure type: systolic Heart failure chronicity: acute Qualified Code(s): I50.21 - Acute systolic (congestive) heart failure (3) Cardiomyopathy Cardiomyopathy type: unspecified Qualified Code(s): I42.9 - Cardiomyopathy, unspecified (4) Rheumatoid arthritis Rheumatoid arthritis location: unspecified site Rheumatoid factor presence: unspecified presence Qualified Code(s): M06.9 - Rheumatoid arthritis, unspecified (5) Hypertension Hypertension type: essential hypertension Qualified Code(s): I10 - Essential (primary) hypertension (6) Pneumonia Laterality: right Lung location: lower lobe of lung Pneumonia type: due to unspecified organism Qualified Code(s): J18.9 - Pneumonia, unspecified organism (7) Anemia Anemia type: iron deficiency Iron deficiency anemia type: inadequate dietary iron intake Qualified Code(s): D50.8 - Other iron deficiency anemias (8) BPH (benign prostatic hyperplasia) Lower urinary tract symptom presence: symptoms absent Qualified Code(s): N40.0 - Benign prostatic hyperplasia without lower urinary tract symptoms
[2020-02-11 07:37] LABS: Hematocrit (blood only) 31.8 % (42-52); Hemoglobin 10.3 g/dL (14.0-18.0); Mean Corpuscular Hemoglobin 25.8 pg (25-34); Mean Corpuscular Hgb Conc 32.4 g/dL (32-36); Mean Corpuscular Volume 79.5 fL (80-100); Mean Platelet Volume 9.9 fL (7.4-10.4); Platelet Count 334 K/uL (130-400); RDW Coefficient of Variation 16.1 % (11.5-14.5); RDW Standard Deviation 46.1 fL (36.4-46.3); White Blood Count 6.73 K/uL (4.8-10.8)
[2020-02-11 08:07] LABS: Albumin Level 2.3 gm/dl (3.4-5.0); BUN Creatinine Ratio 12.7 (10-20); Calcium 7.9 mg/dl (8.5-10.1); Creatinine Clr Calc Pharmacy 34.1 ml/min; Est GFR (African American) 34.2; Est GFR (Non-African American) 29.5; Phosphorus 3.7 mg/dl (2.5-4.9); Potassium 3.9 mmol/L (3.5-5.1)
[2020-02-11] MEDS ORDERED: LACTATED RINGER'S 1,000 ML IV SCH (08:15)
[2020-02-11] MEDS: APIXABAN 5 MG TABLET PO SCH (08:17)
[2020-02-11] MEDS: AMIODARONE 200 MG TAB PO SCH (08:17)
[2020-02-11] MEDS: POTASSIUM CHLORIDE 10 MEQ TABCR PO SCH (08:17)
[2020-02-11] MEDS: FERROUS SULFATE 325 MG TAB PO SCH (08:17)
[2020-02-11] MEDS: TERAZOSIN HCL 1 MG CAP PO SCH (08:17)
[2020-02-11] MEDS: AMLODIPINE BESYLATE 5 MG TAB PO SCH (08:18)
[2020-02-11] MEDS: carvediloL 12.5 MG TAB PO SCH (08:18)
[2020-02-11] MEDS: TRAMADOL HCL 50 MG TABLET PO PRN (09:04)
--- NOTE | 2020-02-11 11:28 | Discharge Summary ---
Date of Service February 11, 2020 Admission HPI Per Admitting Provider The patient is a 64-year-old male with a past medical history including rheumatoid arthritis, odontoid fracture, thoracic vertebral fracture, restless leg syndrome, iron deficiency who presents to the emergency department with the above symptoms. He is presently an undomiciled male, who has been living out of hotels and the out of the [employer] program. He has not had any recent travels, and is not aware of any sick contacts, but he has been around a number of people who also do not have a home. In the emergency department he had an EKG performed and continuous monitoring, which suggested atrial flutter in the rate range of 140s to 150s. He did receive Cardizem 10 mg IV, and adenosine 6 mg IV, and later after the addition of Lopressor 5 mg IV, rate overall did improve somewhat to the low 100s range. Chest x-ray performed showed significant right middle lobe and right lower lobe infiltrates along with left lower lobe infiltrate. Laboratory abnormalities were primarily concerning for potassium of 3.2, albumin of 2.6, hemoglobin of 11.7 and platelets of 476. Principal Diagnosis Atrial flutter/fibrillation with rapid ventricular response Respiratory arrest (possible cardiac arrest with brief run of ventricular tachycardia) Rhinovirus/enterovirus upper respiratory tract infection Acute kidney injury Cardiomyopathy - suspected due to tachyarrhythmia Discharge Exam Constitutional well developed; + not well nourished and no acute distress Eyes + anicteric sclerae; normal pupil size Respiratory normal respiratory effort; no respiratory distress and no labored breathing Auscultation: no diminished lung sounds, no crackles, no rales, no rhonchi and no wheezes Cardiovascular Rate/Rhythm: regular rate and regular rhythm Heart Sounds: no murmur Extremities: + pedal edema (trace b/l equal) Gastrointestinal (Abdomen) Inspection/Auscultation: normal bowel sounds; abdomen not distended Percussion/Palpation: abdomen soft; abdomen nontender Musculoskeletal Extremities: + extremities abnormal to inspection (chronic deformities of hands/feet consistent with RA, contractures at knees) Neurologic moves all extremities and awake; not confused Psychiatric A+Ox3, euthymic affect Discharge Data Allergies Allergy/AdvReac Type Severity Reaction Status Date / Time No Known Drug Allergies Allergy Unknown NONE Verified 02/01/20 20:33 Consultations 02/01/20 19:37 ED Decision to Admit Stat 02/01/20 21:59 Consult Cardiology Routine Consult Case Management - Discharge Planning Routine 02/02/20 06:50 Consult [employer] Routine 02/05/20 18:34 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 02/07/20 08:48 Consult Nephrology Routine Procedures Performed Operation Date: 02/02/20 10:45 Actual Procedures p Echo Transesophageal - Ignacio Marquez MD s Echo Color Flow - Ignacio Marquez MD s Echo Doppler Complete - Ignacio Marquez MD Ordered Studies 02/02/20 06:54 US point of care ultrasound Urgent 02/07/20 08:30 US renal/blad retro comp Routine 02/10/20 08:46 US doppler renal [US duplex renal artery] Routine Hospital Course (1) REGIS (acute kidney injury): David Dailey is a 64 year old male admitted to [facility] from January 31 to February 11 2020 due to shortness of breath, nasal congestion and cough. Diagnosed with rhino/enterovirus upper respiratory tract infection which along with atrial flutter/fibrillation caused heart failure with pulmonary edema. Leading to respiratory arrest requiring intubation and intensive care admission on first night of admission and electrical cardioversion. This caused REGIS (suspected ATN) which was still slowly improving on discharge. He was advised to keep well hydrated and repeat BMP next week for this. Advised to avoid NSAIDs and Sudafed in the future. Amiodarone started for rhythm control. Eliquis for anticoagulation. Carvedilol started for hypertension and rate control if he was to go back into atrial flutter/fibrillation Amlodipine also started as his blood pressure was persistently high despite interventions above. Inpatient physical rehabilitation was recommended but declined. Therefore discharged back to his temporary hotel accommodation (he is currently awaiting an apartment arranging through out of the cold. (2) Acute respiratory failure with hypoxia: (3) Atrial flutter: (4) Congestive heart failure: (5) Cardiomyopathy: (6) Demand ischemia: (7) Rheumatoid arthritis: (8) Hypertension: (9) Viral infection: (10) Pneumonia: (11) Hypokalemia: (12) Anemia: (13) Homeless single person: (14) BPH (benign prostatic hyperplasia): (15) Restless leg syndrome: (16) DVT prophylaxis: Total Time Total Time Spent Total Time Spent (In Minutes): 45 Total Time Includes: Examination of the Patient, Discharge Planning, Medication Reconciliation and Communication With Other Providers (Dr Wray) Discharge Plan Discharge Items Patient Disposition: Home - Home Health Services Reason For Visit: Shortness of breath, tachycardia Discharge Diagnosis: Atrial flutter/fibrillation with rapid ventricular response Respiratory arrest (possible cardiac arrest with brief run of ventricular tachyc ardia) Rhinovirus/enterovirus upper respiratory tract infection Acute kidney injury Cardiomyopathy - suspected due to tachyarrhythmia Activity: Resume your previous activity Non-emergency contact: Primary Care Provider Call non-emergency contact if: you have any medication questions and your symptoms worsen Follow-up/Referrals: Lisa Heart MD [Physician] - (4-6 weeks) Monico Alves DO [Primary Care Provider] - 02/17/20 9:00 am (Please, follow up with Dr. Monico Alves on ThursdayFebruary 16 at 9:00 am. *He will be your new primary care provider. The office is located at [address] [place] [address] in [place]. If you need to change/cancel this appointment, call the office at [phone].) Ignacio Marquez MD [Physician] - (8 weeks with transthoracic echocardiogram in office) Diet: Low Sodium (2gm) Ambulatory Orders: Basic Metabolic Panel (Routine) Timeframe: 20200215 Location: Determined by Patient Ordered By: Brendan Young Attending Provider Instructions: You were admitted to [facility] from January 31 to February 11 2020 due to shortness of breath, nasal congestion and cough. You were diagnosed with rhinovirus upper respiratory tract infection which along with atrial flutter/fibrillation caused heart failure with fluid build up on your lungs. This lead to a respiratory arrest requiring intubation and intensive care admission and eventual shock to convert your heart back to a normal rhythm. As part of this you developed acute kidney injury which is still resolving on discharge and you should follow up with nephrology, keep well hydrated and repeat lab tests next week for this. Please avoid all over the counter pain medication except acetaminophen as this can make your kidney failure worse. Amiodarone is to help keep your heart in a normal rhythm. Please follow up [facility] cardiology as above for ongoing adjustments of this. Eliquis was started to reduce the risk of a stroke which is increased due to the abnormal rhythm you were in above. Recommend not using Sudafed in the future unless otherwise advised by a physician as likely this contributed towards your arrhythmia. Carvedilol is to help with heart remodelling as your heart efficiency (cardiomyopathy) is reduced. Amlodipine was started to help with your high blood pressure. Inpatient physical rehabilitation was recommended but declined. Please discuss with your new PCP if you continue to struggle with transferring and weakness. Pending Studies at Discharge: No Stand-Alone Forms: My [facility], Smoking Cessation Medications and DC Order Prescriptions: New carvedilol 12.5 mg Tablet 12.5 mg PO BID Qty: 60 RF: 0 amlodipine [Norvasc] 5 mg Tablet 5 mg PO QAM Qty: 30 RF: 0 amiodarone 200 mg Tablet 200 mg PO BIDM Qty: 60 RF: 0 ferrous sulfate 325 mg (65 mg iron) Tablet,Delayed Release (Dr/Ec) 325 mg PO QAM Qty: 30 RF: 0 Eliquis 5 mg Tablet 5 mg PO BID Qty: 60 RF: 0 Continued multivitamin Tablet 1 tab PO QPM RF: 0 potassium chloride [Klor-Con M20] 20 mEq Tablet,Er Particles/Crystals 20 meq PO QAM RF: 0 ferrous sulfate [iron] 325 mg (65 mg iron) Tablet 325 mg PO QPM RF: 0 Enbrel 50 mg/mL (0.98 mL) Syringe 50 mg subcut WK RF: 0 ropinirole 1 mg tablet 1 mg PO BID RF: 0 tramadol 50 mg Tablet 50 mg PO Q8H PRN (Reason: Pain) RF: 0 terazosin 1 mg capsule 1 mg PO BID RF: 0 Discontinued diclofenac sodium 50 mg Tablet,Delayed Release (Dr/Ec) 50 mg PO BID PRN (Reason: Pain) RF: 0 naproxen 500 mg Tablet 500 mg PO BID PRN (Reason: Pain) RF: 0 Discharge Orders: Discharge Order (Routine); Ordered 02/11/20 Ordered By: Brendan Wall Admission Data Admit Date/Time: 02/01/20 20:30 Attending Provider: Brendan Wall Admit Provider: Francisco Guerrero Primary Care Provider: Monico Alves Other Providers: Francisco Guerrero ; Ignacio Marquez ; Wil Mcguire ; Lisa Heart Other Interventions: Discharge Summary Assessment (RN) Last Done: 02/11/20 11:25 DC Date/Time DO NOT enter until pt leaves facility: 02/11/20 12:55 Coding Level of Care Code D/C Day Management >30 mins Diagnoses REGIS (acute kidney injury) N17.9 Acute respiratory failure with hypoxia J96.01 Atrial flutter I48.92 Atrial flutter type: unspecified Congestive heart failure I50.21 Heart failure chronicity: acute Heart failure type: systolic Cardiomyopathy I42.9 Cardiomyopathy type: unspecified Demand ischemia I24.8 Rheumatoid arthritis M06.9 Rheumatoid arthritis location: unspecified site Rheumatoid factor presence: unspecified presence Hypertension I10 Hypertension type: essential hypertension Viral infection B34.9 Pneumonia J18.9 Laterality: right Lung location: lower lobe of lung Pneumonia type: due to unspecified organism Hypokalemia E87.6 Anemia D50.8 Anemia type: iron deficiency Iron deficiency anemia type: inadequate dietary iron intake Homeless single person Z59.0 BPH (benign prostatic hyperplasia) N40.0 Lower urinary tract symptom presence: symptoms absent Restless leg syndrome G25.81 DVT prophylaxis Z29.9
== END 2020-02-11 12:55 | disposition home or self-care (01) | DRG 208 ==
LOC: ED 17:08 → 2E 20:30 → SUATTDRO 20:30 → 2E 21:54 → 1E 02-02 09:29 → 2S 02-05 16:03 → 2W 02-06 19:11

== ENCOUNTER 2021-05-11 19:32 | Inpatient (IN) ==
[2021-05-11] MEDS ORDERED: KETOROLAC TROMETHAMINE 15 MG/ML VIAL IV STA (20:25)
[2021-05-11] MEDS ORDERED: ONDANSETRON INJ 2 MG/ML 2 ML VIAL IV STA (20:25)
[2021-05-11] MEDS ORDERED: SODIUM CHLORIDE 0.9% 500 ML IV SCH (20:30)
--- NOTE | 2021-05-11 20:33 | Emergency Department Note ---
Impression & Plan Weakness, Acute pain of right shoulder, Leukocytosis, Tachycardia, Elevated troponin, Debilitated ED Provider Note NAME: JASEN YO AGE: 67 SEX: M : 04/05/1954 ARRIVES VIA: Ambulance INFORMANT: [Patient] ED PROVIDER(S): [Axel Lobato MD] CHIEF COMPLAINT: Pain HISTORY OF PRESENT ILLNESS: The patient is a 67-year-old male who presents by ambulance for right shoulder and neck pain. The patient states that he was getting out of bed about 4 days ago and felt a pop in his right neck and shoulder. He has had pain ever since. He states he was on prednisone, he took his last dose about 3 days ago. He has tried tramadol for pain but has not had much relief. The pain is severe especially with movement. The patient states that he cannot care for himself like this at home. He does live alone and is wheelchair-bound secondary to severe arthritis. He has been working with the [employer] but, he is still in his home. There has been talk about getting inpatient rehab. There has been no chest pain or cough or congestion. No vomiting or diarrhea, no abdominal pain. Patient admits that he is not eating and drinking well. He has been sleeping in his wheelchair because he cannot get into his bed or do much else for himself with his discomfort. REVIEW OF SYSTEMS: See HPI for pertinent positives and negatives. A total of ten systems were reviewed and were otherwise negative. PMHx/PSHx: See Below SOCIAL HISTORY: See Below. PHYSICAL EXAM: GENERAL: Patient is in no acute distress. HEENT: No acute trauma, normocephalic atraumatic, mucous membranes dry, no nasal congestion, no scleral icterus. NECK: No stridor, no adenopathy, no meningismus, trachea is midline. No posterior midline bony step-off. LUNGS: Clear to auscultation bilaterally, no wheeze, no rhonchi, breath sounds equal. HEART: Tachycardic, regular rhythm, 2/6 systolic murmur. ABDOMEN: Soft, nontender, bowel sounds positive, no hernias, no peritonitis. EXTREMITIES: No cyanosis. He has his knees flexed. There is bilateral pedal edema that is moderate in severity. NEUROLOGIC: Oriented x 3, no acute motor or sensory deficits, no focal weakness. SKIN: No rash, no jaundice, no diaphoresis. DIFFERENTIAL DIAGNOSIS: Infection, dehydration, metabolic abnormality, hypo/hyperglycemia, cervical spine fracture, cervical strain, shoulder strain, shoulder dislocation or fracture, electrolyte disturbance, anemia, hypoxia, cardiac sources, intracere bral event, toxicologic issues, stroke, TIA, as well as other pathologies. EMERGENCY DEPARTMENT COURSE/PROCEDURES: ECG: Indication was weakness. The ECG shows a sinus tachycardia with a rate of 114. There is some ST depression in the lateral leads. There are some inverted T waves in the inferior leads. No ST elevation, no PVCs. There is a potential old anterior infarct. The QTc is 452. There are no old ECGs to use for comparison. Continuous Cardiac Monitoring: An order was placed for continuous cardiac monitoring. The monitor shows a rate of 112 with sinus tachycardia. Critical Care Note: I have personally spent 63 minutes of critical care time in the direct management of this patient. This includes bedside care, interpretation of diagnostic studies, and testing, discussion with consultants, patient, and family members, and other required patient management activities. This 63 minutes is in excess of all separately billable procedures. MEDICAL DECISION MAKING: There is a moderate leukocytosis which could be consistent with infection or the stress of his situation. There is an anemia with a hemoglobin of 10.6. There is a normal platelet count. Sodium somewhat low at 132. No kidney failure. Lactic acid level is elevated at 2.1, consistent with dehydration and/or infection. There was no worrisome liver enzyme elevation. The patient appeared to be in a euthyroid state. ECG showed a sinus tachycardia with some T wave inversion in the inferior leads and some ST depression in the lateral leads. No ST elevation. Cardiac enzyme testing x1 did show elevation consistent with possible cardiac injury or strain. Urinalysis showed dehydration, no infection. Covid testing returned negative. Chest x-ray shows some parenchymal congestion, no obvious pneumonia. Brain CT shows no acute bleed or mass-effect. 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 No acute fracture seen. Right shoulder film did not show any evidence for fracture or dislocation although, arthritis was seen. The patient received IV saline, 1 L in total. He was given IV Zofran for nausea. He was given IV morphine for pain. He received IV Valium to help with some muscle relaxation. He received IV Toradol for pain. He received IV cefepime as empiric antibiotic coverage. He received IV Lopressor, 10 mg to help control the blood pressure and heart rate. He was given his typical oral dose of nighttime Requip. I did speak to the patient about his findings, he is aware of the need for a hospital stay. I spoke with case management, the on-call hospitalist was consulted. Further work-up for all his findings is warranted. The on-call hospitalist asked me to see talk with spinal surgery. I discussed the case with Dr. Hassan of spinal surgery. This injury to the odontoid was truly felt to be old and not in need of any emergent intervention. A soft collar was suggested for this evening. An MRI of the cervical spine was ordered at the request of the hospitalist. This will hopefully help with the care of this odontoid injury. Spinal surgery will be seeing the patient in the morning in consult. Past Med/Surg History Medical History Cervical spine fracture Chronic neck pain Rheumatoid arthritis Social History Smoking Status: Never smoker Feels Safe at Home: Yes Allergies Allergies Allergy/AdvReac Type Severity Reaction Status Date / Time No Known Allergies Allergy Verified 05/11/21 20:27 Home Meds Home Medications Medication Instructions Recorded Confirmed apixaban [Eliquis] 5 mg PO BID 05/11/21 05/11/21 betamethasone dipropionate 1 applic TOPICAL BID 05/11/21 05/11/21 etanercept [Enbrel] 50 mg SUBCUT .[id number] 05/11/21 05/11/21 naproxen [Naprosyn] 250 - 500 mg PO HS 05/11/21 05/11/21 prednisone 20 mg PO DIRECTED 05/11/21 05/11/21 ropinirole 1 mg PO HS 05/11/21 05/11/21 terazosin 2 mg PO HS 05/11/21 05/11/21 tramadol 50 mg PO DAILY PRN 05/11/21 05/11/21 Results & Data (ED) Vital Signs Vital Signs - 24 hr 05/11/21 19:38 05/11/21 19:54 05/11/21 21:00 Temperature 37.4 C Temperature Source Oral Pulse Rate 114 H 117 H Pulse Rate [Right Finger] Pulse Rate from SpO2 Sensor 112 H 118 H Pulse Strength [Right Finger] Respiratory Rate 18 20 Respiratory Effort / Characteristics Non-Labored Spontaneous Respiratory Depth Normal Blood Pressure 170/72 H 170/72 H Blood Pressure [Right Arm] Blood Pressure Mean 104 104 Blood Pressure Mean [Right Arm] Blood Pressure Position [Right Arm] Pulse Oximetry 98 98 99 Oxygen Delivery Method Room Air Room Air Oxygen Flow Rate Sepsis Recent Fever Within 48 Hours No Sepsis New/Unexplained Change in Mental Status N/A Sepsis Action Taken by Nursing No Action Required 05/11/21 22:14 05/11/21 22:31 05/11/21 22:38 Temperature Temperature Source Pulse Rate 112 H 112 H 92 H Pulse Rate [Right Finger] Pulse Rate from SpO2 Sensor 112 H 92 H Pulse Strength [Right Finger] Respiratory Rate 13 19 Respiratory Effort / Characteristics Respiratory Depth Blood Pressure 162/69 H 162/69 H 137/64 Blood Pressure [Right Arm] Blood Pressure Mean 100 88 Blood Pressure Mean [Right Arm] Blood Pressure Position [Right Arm] Pulse Oximetry 100 100 Oxygen Delivery Method Oxygen Flow Rate Sepsis Recent Fever Within 48 Hours Sepsis New/Unexplained Change in Mental Status Sepsis Action Taken by Nursing 05/11/21 22:39 05/11/21 23:42 05/11/21 23:51 Temperature Temperature Source Pulse Rate 100 H 91 H Pulse Rate [Right Finger] 92 H Pulse Rate from SpO2 Sensor 92 H Pulse Strength [Right Finger] Normal Respiratory Rate 16 20 Respiratory Effort / Characteristics Non-Labored Respiratory Depth Normal Blood Pressure 137/64 137/64 Blood Pressure [Right Arm] 137/64 Blood Pressure Mean 88 Blood Pressure Mean [Right Arm] 88 Blood Pressure Position [Right Arm] Lying Pulse Oximetry 100 100 Oxygen Delivery Method Nasal Cannula Room Air Oxygen Flow Rate 2 Sepsis Recent Fever Within 48 Hours Sepsis New/Unexplained Change in Mental Status Sepsis Action Taken by Nursing 05/12/21 00:30 05/12/21 01:12 05/12/21 01:19 Temperature Temperature Source Pulse Rate 93 H 94 H 94 H Pulse Rate [Right Finger] Pulse Rate from SpO2 Sensor Pulse Strength [Right Finger] Respiratory Rate 25 H 22 17 Respiratory Effort / Characteristics Respiratory Depth Blood Pressure 123/70 Blood Pressure [Right Arm] Blood Pressure Mean 87 Blood Pressure Mean [Right Arm] Blood Pressure Position [Right Arm] Pulse Oximetry Oxygen Delivery Method Oxygen Flow Rate Sepsis Recent Fever Within 48 Hours Sepsis New/Unexplained Change in Mental Status Sepsis Action Taken by Nursing 05/12/21 01:30 Temperature Temperature Source Pulse Rate 96 H Pulse Rate [Right Finger] Pulse Rate from SpO2 Sensor Pulse Strength [Right Finger] Respiratory Rate 17 Respiratory Effort / Characteristics Respiratory Depth Blood Pressure Blood Pressure [Right Arm] Blood Pressure Mean Blood Pressure Mean [Right Arm] Blood Pressure Position [Right Arm] Pulse Oximetry Oxygen Delivery Method Oxygen Flow Rate Sepsis Recent Fever Within 48 Hours Sepsis New/Unexplained Change in Mental Status Sepsis Action Taken by Care Home Medications Current Medication List: was personally reviewed by me Laboratory Data Attestation: I reviewed the patient's lab results. Result diagrams: 05/11/21 21:02 05/11/21 21:02 Lab Results 05/11/21 05/11/21 05/11/21 Range/Units 21:02 21:02 21:02 WBC 16.56 H (4.8-10.8) K/uL RBC 4.18 L (4.7-6.1) M/uL Hgb 10.6 L (14.0-18.0) g/dL Hct 32.4 L (42-52) % MCV 77.5 L (80-100) fL MCH 25.4 (25-34) pg MCHC 32.7 (32-36) g/dL RDW Std Deviation 55.1 H (36.4-46.3) fL RDW Coeff of Jayjay 19.5 H (11.5-14.5) % Plt Count 314 (130-400) K/uL MPV 9.2 (7.4-10.4) fL Immature Gran % (Auto) 0.4 % Neut % (Auto) 90.1 % Lymph % (Auto) 2.5 % [place] % (Auto) 6.9 % Eos % (Auto) 0.1 % Baso % (Auto) 0.0 % Neut # (Auto) 14.93 H (1.4-6.5) K/uL Lymph # (Auto) 0.42 L (1.2-3.4) K/uL [place] # (Auto) 1.14 H (0.11-0.59) K/uL Eos # (Auto) 0.01 (0-0.5) K/uL Baso # (Auto) 0.00 (0-0.2) K/uL Immature Gran # (Auto) 0.06 H (0.00-0.02) K/uL Sodium 132 L (136-145) mmol/L Potassium 3.7 (3.5-5.1) mmol/L Chloride 101 (98-107) mmol/L Carbon Dioxide 22 (21-32) mmol/L Anion Gap 9.0 (3-11) BUN 22 H (7-18) mg/dl Creatinine 0.71 (0.6-1.4) mg/dl Est Cr Clr Drug Dosing 105.7 ml/min Est GFR ( Amer) 113.3 ml/min Est GFR (Non-Af Amer) 97.8 ml/min BUN/Creatinine Ratio 30.8 H (10-20) Glucose 156 H (70-99) mg/dl Lactate 2.1 H* (0.4-2.0) mmol/L Calcium 8.5 (8.5-10.1) mg/dl Magnesium 1.9 (1.8-2.4) mg/dl Total Bilirubin 0.9 (0.2-1) mg/dl AST 9 L (15-37) U/L ALT 19 (12-78) U/L Alkaline Phosphatase 106 (45-117) U/L Total Creatine Kinase 25 L (39-308) U/L Troponin I 0.248 H* (0-0.045) ng/ml Total Protein 6.7 (6.4-8.2) gm/dl Albumin 2.3 L (3.4-5.0) gm/dl Globulin 4.4 H (2.5-4.0) gm/dl Albumin/Globulin Ratio 0.5 L (0.9-2) TSH 1.250 (0.300-4.500) uIu/ml Urine Color Urine Appearance (Clear) Urine pH (4.5-7.5) Ur Specific [place] (1.000-1.030) Urine Protein (Negative) Urine Glucose (UA) (Negative) Urine Ketones (Negative) Urine Blood (Negative) Urine Nitrite (Negative) Urine Bilirubin (Negative) Urine Urobilinogen (Negative) Ur Leukocyte Esterase (Negative) Urine WBC (Auto) (0-5) /hpf Urine RBC (Auto) (0-4) /hpf U Hyaline Cast (Auto) (0-5) /lpf U Epithel Cells (Auto) (0-5) /lpf Urine Bacteria (Auto) (Negative) Amorphous Sediment (None Prsent) Urine Yeast COVID-19 Eval Order SARS-CoV-2 (PCR) (Negative) 05/11/21 05/11/21 05/11/21 Range/Units 21:11 21:11 22:20 WBC (4.8-10.8) K/uL RBC (4.7-6.1) M/uL Hgb (14.0-18.0) g/dL Hct (42-52) % MCV (80-100) fL MCH (25-34) pg MCHC (32-36) g/dL RDW Std Deviation (36.4-46.3) fL RDW Coeff of Jayjay (11.5-14.5) % Plt Count (130-400) K/uL MPV (7.4-10.4) fL Immature Gran % (Auto) % Neut % (Auto) % Lymph % (Auto) % [place] % (Auto) % Eos % (Auto) % Baso % (Auto) % Neut # (Auto) (1.4-6.5) K/uL Lymph # (Auto) (1.2-3.4) K/uL [place] # (Auto) (0.11-0.59) K/uL Eos # (Auto) (0-0.5) K/uL Baso # (Auto) (0-0.2) K/uL Immature Gran # (Auto) (0.00-0.02) K/uL Sodium (136-145) mmol/L Potassium (3.5-5.1) mmol/L Chloride (98-107) mmol/L Carbon Dioxide (21-32) mmol/L Anion Gap (3-11) BUN (7-18) mg/dl Creatinine (0.6-1.4) mg/dl Est Cr Clr Drug Dosing ml/min Est GFR ( Amer) ml/min Est GFR (Non-Af Amer) ml/min BUN/Creatinine Ratio (10-20) Glucose (70-99) mg/dl Lactate (0.4-2.0) mmol/L Calcium (8.5-10.1) mg/dl Magnesium (1.8-2.4) mg/dl Total Bilirubin (0.2-1) mg/dl AST (15-37) U/L ALT (12-78) U/L Alkaline Phosphatase (45-117) U/L Total Creatine Kinase (39-308) U/L Troponin I (0-0.045) ng/ml Total Protein (6.4-8.2) gm/dl Albumin (3.4-5.0) gm/dl Globulin (2.5-4.0) gm/dl Albumin/Globulin Ratio (0.9-2) TSH (0.300-4.500) uIu/ml Urine Color Dark Yellow Urine Appearance Clear (Clear) Urine pH 5.5 (4.5-7.5) Ur Specific [place] 1.031 H (1.000-1.030) Urine Protein 2+ H (Negative) Urine Glucose (UA) Negative (Negative) Urine Ketones 2+ H (Negative) Urine Blood Negative (Negative) Urine Nitrite Negative (Negative) Urine Bilirubin 1+ H (Negative) Urine Urobilinogen Negative (Negative) Ur Leukocyte Esterase Negative (Negative) Urine WBC (Auto) 1-5 (0-5) /hpf Urine RBC (Auto) 0-4 (0-4) /hpf U Hyaline Cast (Auto) 1-5 (0-5) /lpf U Epithel Cells (Auto) 20-30 H (0-5) /lpf Urine Bacteria (Auto) Negative (Negative) Amorphous Sediment Present A (None Prsent) Urine Yeast Not Reportable COVID-19 Eval Order Covid19 at [facility] SARS-CoV-2 (PCR) NEGATIVE (Negative) Administered Medications Discontinued Medications Diazepam (Diazepam 5 Mg/Ml Inj 10ml Vial) 2.5 mg IV NOW STA Stop: 05/11/21 20:26 Last Admin: 05/11/21 21:10 Dose: 2.5 mg Documented by: [id number] Diazepam (Diazepam 5 Mg/Ml Inj 10ml Vial) 5 mg IV NOW STA Stop: 05/12/21 01:36 Last Admin: 05/12/21 01:48 Dose: 5 mg Documented by: [id number] Sodium Chloride (Nss) 500 mls @ 999 mls/hr IV .Q31M SALEEM Stop: 05/11/21 21:00 Last Infusion: 05/11/21 21:55 Dose: 0 mls/hr Documented by: [id number] Admin: 05/11/21 21:08 Dose: 999 mls/hr Documented by: [id number] Cefepime HCl (Maxipime) 2,000 mg in 20 mls @ 5 mls/min IV NOW STA; Protocol Stop: 05/11/21 22:02 Last Admin: 05/11/21 22:33 Dose: 5 mls/min Documented by: [id number] Sodium Chloride (Nss 1000ml) 500 mls @ 999 mls/hr IV .Q31M ONE Stop: 05/11/21 22:29 Last Infusion: 05/11/21 23:23 Dose: 0 mls/hr Documented by: [id number] Admin: 05/11/21 22:15 Dose: 999 mls/hr Documented by: [id number] Ketorolac Tromethamine (Ketorolac Tromethamine 15 Mg/Ml Vial) 15 mg IV NOW STA Stop: 05/11/21 20:26 Last Admin: 05/11/21 21:09 Dose: 15 mg Documented by: [id number] Metoprolol Tartrate (Metoprolol Tartrate 1 Mg/Ml Vial) 5 mg IV NOW STA Stop: 05/11/21 22:13 Last Admin: 05/11/21 22:31 Dose: 5 mg Documented by: [id number] Metoprolol Tartrate (Metoprolol Tartrate 1 Mg/Ml Vial) 5 mg IV NOW STA Stop: 05/11/21 23:35 Last Admin: 05/11/21 23:42 Dose: 5 mg Documented by: [id number] Morphine Sulfate (Morphine Sulfate 4 Mg/Ml 1 Ml Carp\Vial) 4 mg IV NOW STA Stop: 05/11/21 22:13 Last Admin: 05/11/21 22:30 Dose: 4 mg Documented by: [id number] Ondansetron HCl (Ondansetron Inj 2 Mg/Ml 2 Ml Vial) 4 mg IV NOW STA Stop: 05/11/21 20:26 Last Admin: 05/11/21 21:09 Dose: 4 mg Documented by: [id number] Ropinirole HCl (Ropinirole Hcl 1 Mg Tablet) 1 mg PO NOW STA Stop: 05/11/21 23:47 Last Admin: 05/12/21 00:07 Dose: 1 mg Documented by: [id number] Imaging Data Radiologist's Impression: Cervical Spine CT 05/11/21 20:25 CT SCAN OF THE CERVICAL SPINE CLINICAL HISTORY: Neck pain. Generalized weakness. COMPARISON STUDY: No priors. TECHNIQUE: CT scan of the cervical spine is performed from the skull base to the upper thoracic spine. Images are reviewed in the axial, sagittal, and coronal planes. IV contrast was not administered for this examination. A dose lowering technique was utilized adhering to the principles of ALARA. CT DOSE: 1056.49 mGy.cm FINDINGS: Skeletal structures: The skeletal structures are well mineralized. 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 There is only 2 mm of offset of the odontoid process with the C2 vertebral body. Advanced productive change is seen at the atlantodental articulation. No acute fracture or subluxation is identified Involving the cervical spine. Vertebral body height and alignment are maintained. Small anterior osteophytes are seen throughout. The odontoid process and lateral masses are intact. The atlantoaxial articulation is preserved. The spinous processes appear intact. There is a chronic superior endplate compression deformity of T1. There is mild to moderate multilevel cervical spondylosis. Uncovertebral and facet arthropathy contribute to neural foraminal stenosis at several levels. A small bone island is incidentally noted in the body of C7. Intervertebral discs: Mild to moderate disc space narrowing is seen at all cervical levels between C3-C4 and C6-C7. Central canal: Widely patent. Soft tissues: The prevertebral and paraspinous soft tissues are within normal limits. There is atherosclerotic calcification of the carotid bulbs. Calvarium: The visualized calvarium at the skull base appears intact. Brain parenchyma: Partially visualized brain parenchyma at the skull base is within normal limits. Mastoids: The mastoid air cells are well pneumatized. Lung apices: Clear as visualized. IMPRESSION: 1. There is no evidence of acute fracture or subluxation involving the cervical spine. 2. There is a chronic nonunited fracture through the base of the odontoid process versus an os odontoideum. A nonunited fracture is favored. 3. There is only mild offset of the odontoid process with the body of C2, and advanced degenerative change is seen at the atlantodental articulation. 4. Osteopenia and spondylotic change as above. 5. Mild chronic superior endplate compression deformity of T1. ACT 112: Negative or not required by law. Electronically signed by: Axel Cochran M.D. 05/11/2021 9:49 PM Chest X-Ray 05/11/21 20:25 SINGLE VIEW CHEST CLINICAL HISTORY: Generalized weakness. FINDINGS: 2 AP, portable, semierect chest radiographs are obtained. No prior studies are available for comparison at the time of dictation. The heart is mildly enlarged noting atherosclerotic calcification of the thoracic aorta. There is prominence of the pulmonary vasculature. Enlargement of the central pulmonary arteries suggests pulmonary artery hypertension. Atelectasis is seen at the lung bases. No airspace consolidation or large pleural effusion is identified. No pneumothorax is seen. The skeletal structures are osteopenic. The bony thorax is grossly intact. Arthritic change is noted in the shoulders. IMPRESSION: 1. Cardiomegaly with prominence of the pulmonary vasculature. Correlate clinically for evidence of mild congestive failure. 2. No airspace consolidation or large pleural effusion is identified. ACT 112: Negative or not required by law. Electronically signed by: Axel Cochran M.D. 05/11/2021 10:[address] 05/11/21 20:25 CT SCAN OF THE BRAIN WITHOUT IV CONTRAST CLINICAL HISTORY: Generalized weakness. COMPARISON STUDY: No priors. TECHNIQUE: Unenhanced axial CT scan of the brain is performed from the vertex to the skull base. A dose lowering technique was utilized adhering to the principles of ALARA. FINDINGS: Brain parenchyma: There is mild age-related involutional change. There is no hemorrhage, mass effect, or evidence of acute territorial ischemia by CT criteria. Poole-white matter differentiation is preserved. No extra-axial fluid collection is seen. Ventricles, sulci, cisterns: Normal in configuration. Intracranial vasculature: There is mild atherosclerotic calcification of the cavernous carotid arteries. Calvarium: Unremarkable. There is chronic appearing deformity of the nasal bones. Sinuses and mastoids: The visualized paranasal sinuses are clear. The mastoid air cells are well pneumatized. Orbits: The bony orbits are grossly intact. IMPRESSION: There is no hemorrhage, mass effect, or evidence of acute territorial ischemia by CT criteria. ACT 112: Negative or not required by law. Electronically signed by: Axel Cochran M.D. 05/11/2021 9:43 PM Shoulder X-Ray 05/11/21 20:25 RIGHT SHOULDER 3 VIEWS CLINICAL HISTORY: Right shoulder pain. FINDINGS: 3 views of the right shoulder are obtained. No prior studies are available for comparison at the time of dictation. The skeletal structures are osteopenic. There is no radiographic evidence of right shoulder fracture or dislocation. Moderate osteoarthritic change is seen at the glenohumeral joint where there is significant joint space narrowing, bony sclerosis, overgrowth, and subchondral cyst formation. There is flattening and sclerosis of the humeral head. Mild degenerative change is seen at the right acromioclavicular joint. The overlying soft tissues are normal as imaged. The imaged right lung parenchyma appears clear. The heart is enlarged. IMPRESSION: Osteopenia and degenerative change as above with no acute bony abnormality identified. Electronically signed by: Axel Cochran M.D. 05/11/2021 10:47 PM Cervical spine MRI: Pending. Discharge Plan Visit Data Chief Complaint: Pain (Generalized) Stated Complaint: NECK PAIN ED Provider: Axel Lobato Discharge Problem: Weakness, Acute pain of right shoulder, Leukocytosis, Tachycardia, Elevated troponin, Debilitated Patient Disposition: Admitted As Inpatient Condition: Fair Forms Stand Alone Forms: [facility] [email or web address] Prescriptions Prescriptions: No Action naproxen [Naprosyn] 250 mg Tablet 250 - 500 mg PO HS RF: 0 tramadol 50 mg Tablet 50 mg PO DAILY PRN (Reason: Pain) RF: 0 ropinirole 1 mg tablet 1 mg PO HS RF: 0 prednisone 20 mg tablet 20 mg PO DIRECTED RF: 0 terazosin 2 mg capsule 2 mg PO HS RF: 0 betamethasone dipropionate 0.05 % lotion 1 applic TOPICAL BID RF: 0 Enbrel 50 mg/mL (1 mL) syringe 50 mg SUBCUT .[id number] RF: 0 Eliquis 5 mg tablet 5 mg PO BID RF: 0 Referrals Referrals: Monico Alves DO [Primary Care Provider] - Discharge Problem: Leukocytosis Qualifiers: Leukocytosis type: unspecified Qualified Code(s): D72.829 - Elevated white blood cell count, unspecified
[2021-05-11 21:11] LABS: Eosinophils # (auto) 0.01 K/uL (0-0.5); Eosinophils % (auto) 0.1 %; Hematocrit (blood only) 32.4 % (42-52); Hemoglobin 10.6 g/dL (14.0-18.0); Immature Granulocytes # (auto) 0.06 K/uL (0.00-0.02); Immature Granulocytes % (auto) 0.4 %; Lymphocytes # (auto) 0.42 K/uL (1.2-3.4); Lymphocytes % (auto) 2.5 %; Mean Corpuscular Hemoglobin 25.4 pg (25-34); Mean Corpuscular Hgb Conc 32.7 g/dL (32-36); Mean Corpuscular Volume 77.5 fL (80-100); Mean Platelet Volume 9.2 fL (7.4-10.4); Monocytes # (auto) 1.14 K/uL (0.11-0.59); Monocytes % (auto) 6.9 %; Neutrophils # (auto) 14.93 K/uL (1.4-6.5); Neutrophils % (auto) 90.1 %; Platelet Count 314 K/uL (130-400); RDW Coefficient of Variation 19.5 % (11.5-14.5); RDW Standard Deviation 55.1 fL (36.4-46.3); Red Blood Count 4.18 M/uL (4.7-6.1); White Blood Count 16.56 K/uL (4.8-10.8)
[2021-05-11 21:30] LABS: Albumin Level 2.3 gm/dl (3.4-5.0); BUN Creatinine Ratio 30.8 (10-20); Calcium 8.5 mg/dl (8.5-10.1); Creatinine Clr Calc Pharmacy 105.7 ml/min; Est GFR (African American) 113.3 ml/min; Est GFR (Non-African American) 97.8 ml/min; Magnesium 1.9 mg/dl (1.8-2.4); Potassium 3.7 mmol/L (3.5-5.1)
--- NOTE | 2021-05-11 21:44 | CT Scan Report ---
CT SCAN OF THE BRAIN WITHOUT IV CONTRAST CLINICAL HISTORY: Generalized weakness. COMPARISON STUDY: No priors. TECHNIQUE: Unenhanced axial CT scan of the brain is performed from the vertex to the skull base. A d ose lowering technique was utilized adhering to the principles of ALARA. FINDINGS: Brain parenchyma: There is mild age-related involutional change. There is no hemorrhage, mass effect, or evidence of acute territorial ischemia by CT criteria. Po[place]-white matter differentiation is prese rved. No extra-axial fluid collection is seen. Ventricles, sulci, cisterns: Normal in configuration. Intracranial vasculature: There is mild atherosclerotic calcification of the cavernous carotid arteri es. Calvarium: Unremarkable. There is chronic appearing deformity of the nasal bones. Sinuses and mastoids: The visualized paranasal sinuses are clear. The mastoid air cells are well pneu matized. Orbits: The bony orbits are grossly intact. IMPRESSION: There is no hemorrhage, mass effect, or evidence of acute territorial ischemia by CT [email or web address]. ACT 112: Negative or not required by law. Electronically signed by: Axel Cochran M.D. 05/11/2021 9:43 PM
[2021-05-11 21:46] LABS: Albumin Globulin Ratio 0.5 (0.9-2); Bilirubin,Total 0.9 mg/dl (0.2-1); Globulin 4.4 gm/dl (2.5-4.0); Thyroid Stimulating Hormone 1.25 uIu/ml (0.300-4.500); Total Protein 6.7 gm/dl (6.4-8.2); Troponin I 0.248 ng/ml (0-0.045)
--- NOTE | 2021-05-11 21:51 | CT Scan Report ---
CT SCAN OF THE CERVICAL SPINE CLINICAL HISTORY: Neck pain. Generalized weakness. COMPARISON STUDY: No priors. TECHNIQUE: CT scan of the cervical spine is performed from the skull base to the upper thoracic spine . Images are reviewed in the axial, sagittal, and coronal planes. IV contrast was not administered fo r this examination. A dose lowering technique was utilized adhering to the principles of ALARA. CT DOSE: 1056.49 mGy.cm FINDINGS: Skeletal structures: The skeletal structures are well mineralized. There is a chronic nonunited fract ure through the base of the odontoid process versus os odontoideum. There is only 2 mm of offset of t he odontoid process with the C2 vertebral body. Advanced productive change is seen at the atlantodent al articulation. No acute fracture or subluxation is identified Involving the cervical spine. Vertebr al body height and alignment are maintained. Small anterior osteophytes are seen throughout. The odon toid process and lateral masses are intact. The atlantoaxial articulation is preserved. The spinous p rocesses appear intact. There is a chronic superior endplate compression deformity of T1. There is mi ld to moderate multilevel cervical spondylosis. Uncovertebral and facet arthropathy contribute to sivan ral foraminal stenosis at several levels. A small bone island is incidentally noted in the body of C7 . Intervertebral discs: Mild to moderate disc space narrowing is seen at all cervical levels between C3 -C4 and C6-C7. Central canal: Widely patent. Soft tissues: The prevertebral and paraspinous soft tissues are within normal limits. There is athero sclerotic calcification of the carotid bulbs. Calvarium: The visualized calvarium at the skull base appears intact. Brain parenchyma: Partially visualized brain parenchyma at the skull base is within normal limits. Mastoids: The mastoid air cells are well pneumatized. Lung apices: Clear as visualized. IMPRESSION: 1. There is no evidence of acute fracture or subluxation involving the cervical spine. 2. There is a chronic nonunited fracture through the base of the odontoid process versus an os odonto ideum. A nonunited fracture is favored. 3. There is only mild offset of the odontoid process with the body of C2, and advanced degenerative c hange is seen at the atlantodental articulation. 4. Osteopenia and spondylotic change as above. 5. Mild chronic superior endplate compression deformity of T1. ACT 112: Negative or not required by law. Electronically signed by: Axel Cochran M.D. 05/11/2021 9:49 PM
[2021-05-11] MEDS ORDERED: SODIUM CHLORIDE 0.9% 1000ML 500 ML IV ONE (21:59)
[2021-05-11] MEDS ORDERED: CEFEPIME 2,000 MG/20 ML VIAL IV STA (21:59)
[2021-05-11] MEDS ORDERED: MoRPHine SULFATE 4 MG/ML 1 ML CARP\\VIAL IV STA (22:12)
[2021-05-11] MEDS ORDERED: METOPROLOL TARTRATE 1 MG/ML VIAL IV STA ×2 (22:12→23:34)
[2021-05-11 22:34] LABS: Appearance Urine Clear (Clear); Bacteria Urine Automated Negative (Negative); Blood Urine Negative (Negative); Color Urine Dark Yellow; Epithelial Cell Urine Auto 20-30 /lpf (0-5); Glucose Urine UA Negative (Negative); Ketones Urine 2+ (Negative); Leukocyte Esterase Urine Negative (Negative); Nitrite Urine Negative (Negative); Protein Urine 2+ (Negative); RBC Urine Automated 0-4 /hpf (0-4); Specific Gravity Urine 1.031 (1.000-1.030); Urobilinogen Urine Negative (Negative); pH Urine 5.5 (4.5-7.5)
[2021-05-11 22:37] LABS: Bilirubin Urine 1+ (Negative)
--- NOTE | 2021-05-11 22:47 | XRay Report ---
SINGLE VIEW CHEST CLINICAL HISTORY: Generalized weakness. FINDINGS: 2 AP, portable, semierect chest radiographs are obtained. No prior studies are available fo r comparison at the time of dictation. The heart is mildly enlarged noting atherosclerotic calcifica tion of the thoracic aorta. There is prominence of the pulmonary vasculature. Enlargement of the cent ral pulmonary arteries suggests pulmonary artery hypertension. Atelectasis is seen at the lung bases. No airspace consolidation or large pleural effusion is identified. No pneumothorax is seen. The skel etal structures are osteopenic. The bony thorax is grossly intact. Arthritic change is noted in the s houlders. IMPRESSION: 1. Cardiomegaly with prominence of the pulmonary vasculature. Correlate clinically for evidence of mi ld congestive failure. 2. No airspace consolidation or large pleural effusion is identified. ACT 112: Negative or not required by law. Electronically signed by: Axel Cochran M.D. 05/11/2021 10:46 PM
--- NOTE | 2021-05-11 22:48 | XRay Report ---
RIGHT SHOULDER 3 VIEWS CLINICAL HISTORY: Right shoulder pain. FINDINGS: 3 views of the right shoulder are obtained. No prior studies are available for comparison a t the time of dictation. The skeletal structures are osteopenic. There is no radiographic evidence of right shoulder fracture or dislocation. Moderate osteoarthritic change is seen at the glenohumeral j oint where there is significant joint space narrowing, bony sclerosis, overgrowth, and subchondral cy st formation. There is flattening and sclerosis of the humeral head. Mild degenerative change is seen at the right acromioclavicular joint. The overlying soft tissues are normal as imaged. The [facility] parenchyma appears clear. The heart is enlarged. IMPRESSION: Osteopenia and degenerative change as above with no acute bony abnormality identified. Electronically signed by: Axel Cochran M.D. 05/11/2021 10:47 PM
[2021-05-11 22:52] LABS: Amorphous Sediment Urine Present (None Prsent)
[2021-05-11] MEDS ORDERED: rOPINIRole HCL 1 MG TABLET PO STA (23:46)
[2021-05-12] MEDS ORDERED: MoRPHine SULFATE 4 MG/ML 1 ML CARP\\VIAL IV STA (02:18)
[2021-05-12] MEDS ORDERED: MoRPHine SULFATE 4 MG/ML 1 ML CARP\\VIAL ONE (02:20)
--- NOTE | 2021-05-12 02:20 | History & Physical Report ---
Date of Service May 12, 2021 Assessment & Plan (1) Chronic neck pain: Acute aggravation of chronic neck pain- Patient reports occurred when he felt a pop as he was moving [address] scan and MRI of cervical spine both show a nonunion fracture of the base of the odontoid bone. He will be maintained in soft collar until seen by orthopedic spine surgery Dr. Hassan Present on Admission?: Yes (2) Cervical spine fracture: As noted above Present on Admission?: Yes (3) Acute pain of right shoulder: Was assessed by orthopedic surgery, will need to have PT and OT Present on Admission?: Yes (4) Rheumatoid arthritis: Patient presently is on Enbrel every 2 weeks in the outpatient setting. Reportedly had prednisone taper recently. We will place on stress dose hydrocortisone 100 mg IV every 8 hours Present on Admission?: Yes (5) Elevated troponin: Troponin is 0.248 upon admission Likely type II [place] supply demand mismatch The patient will be admitted to telemetry for serial cardiac enzymes, serial EKG's, cardiac rhythm monitoring and a 2-D echocardiogram with Dopplers. Present on Admission?: Yes (6) Debilitated: Significant general debilitation and weakness/severe joint contracture of bilateral lower extremities/chronic pain syndrome- Placed on tramadol 50 mg p.o. every 4 hours as needed moderate pain Tramadol 100 mg p.o. every 4 hours as needed severe pain Morphine sulfate 2 mg IV every 4 hours as needed moderate pain Morphine sulfate 4 mg IV every 4 hours as needed severe pain Baclofen 10 mg p.o. 4 times daily as needed muscle spasm, may need to be given on a scheduled basis Patient reportedly is living alone. The likelihood is, he should be in an assisted living facility, and likely would need a skilled nurse facility in the near future May need a palliative care consult Present on Admission?: Yes (7) Joint contracture of left lower leg: See above Present on Admission?: Yes (8) Joint contracture of right lower leg: See above Present on Admission?: Yes (9) Weakness: See above Present on Admission?: Yes History of Present Illness Chief Complaint: The patient presents to the emergency department with complaint of right shoulder and neck pain after feeling a pop in his right neck and shoulder as he was getting out of bed around 4 days ago Primary Care Provider: Monico Alves, DO The patient is a 67-year-old male with a past medical history including severe rheumatoid arthritis, wheelchair-bound, restless leg syndrome, BPH, chronic pain syndrome and chronic anticoagulation. He presents with symptoms as noted above. Allergies Allergy/AdvReac Type Severity Reaction Status Date / Time No Known Allergies Allergy Verified 05/11/21 20:27 Home Medications Medication Instructions Recorded Confirmed Type apixaban [Eliquis] 5 mg PO BID 05/11/21 05/11/21 History betamethasone dipropionate 1 applic TOPICAL BID 05/11/21 05/11/21 History etanercept [Enbrel] 50 mg SUBCUT .[id number] 05/11/21 05/11/21 History naproxen [Naprosyn] 250 - 500 mg PO HS 05/11/21 05/11/21 History prednisone 20 mg PO DIRECTED 05/11/21 05/11/21 History ropinirole 1 mg PO HS 05/11/21 05/11/21 History terazosin 2 mg PO HS 05/11/21 05/11/21 History tramadol 50 mg PO DAILY PRN 05/11/21 05/11/21 History Past Med/Surg History Medical History Cervical spine fracture Chronic neck pain Rheumatoid arthritis Social History Smoking Status: Never smoker Feels Safe at Home: Yes Review of Systems Review of Systems: The patient denies chest pain, palpitations, shortness of breath, dyspnea on exertion, cough, lower extremity swelling, sore throat, fevers, chills, sweats, nausea, vomiting, diarrhea , constipation, abdominal pain, pelvic pain, blood in urine or stool, dysuria, urinary frequency or urgency, lightheadedness, dizziness, headache, memory loss, loss of consciousness, rash, abnormal bruising or bleeding, focal or generalized weakness, numbness or tingling in , or night sweats. He does report chronic pain from lower extremity muscle contractures associated with his severe RA The review of systems is otherwise negative other than for that already noted above, and at least 10 systems have been reviewed. Physical Exam Physical Exam: The patient is awake, alert and oriented 3, normocephalic and atraumatic, lying in bed and in no acute distress. HEENT--PERRL, EOMI, mucous membranes and oropharynx normal Neck--supple. No JVD. No bruits. Thyroid normal, trachea midline, no adenopathy. Heart--normal S1 and S2. No murmurs, rubs or gallops. Lungs--clear bilaterally, no respiratory distress, no accessory muscle use. Abdomen--normal bowel sounds and soft. Nontender. Nondistended. Extremities--significant muscle contractures at the knees bilaterally Dermatologic--skin appears dry Neurologic--cranial nerves II through XII grossly intact. Rheumatologic--limited exam due to contractures Psychiatric--normal affect. Results & Data Results & Data ([facility]) Vital Signs (Past 12 Hours) Vital Signs Temp Pulse Pulse Resp BP BP Pulse Ox 05/12/21 01:30 96 H 17 05/12/21 01:19 94 H 17 123/70 05/12/21 01:12 94 H 22 05/12/21 00:30 93 H 25 H 05/11/21 23:51 91 H 20 137/64 100 05/11/21 23:42 100 H 137/64 05/11/21 22:39 92 H 16 137/64 100 05/11/21 22:38 92 H 19 137/64 100 05/11/21 22:31 112 H 162/69 H 05/11/21 22:14 112 H 13 162/69 H 100 05/11/21 21:00 117 H 20 99 05/11/21 19:54 99.3 F 114 H 18 170/72 H 98 05/11/21 19:38 170/72 H 98 Laboratory Results Laboratory Results WBC 16.56 K/uL (4.8-10.8) H 05/11/21 21:02 RBC 4.18 M/uL (4.7-6.1) L 05/11/21 21:02 Hgb 10.6 g/dL (14.0-18.0) L 05/11/21 21:02 Hct 32.4 % (42-52) L 05/11/21 21:02 MCV 77.5 fL (80-100) L 05/11/21 21:02 MCH 25.4 pg (25-34) 05/11/21 21: MCHC 32.7 g/dL (32-36) 05/11/21 21:02 RDW Std Deviation 55.1 fL (36.4-46.3) H 05/11/21 21:02 RDW Coeff of Jayjay 19.5 % (11.5-14.5) H 05/11/21 21: Plt Count 314 K/uL (130-400) 05/11/21 21:02 MPV 9.2 fL (7.4-10.4) 05/11/21 21:02 Immature Gran % (Auto) 0.4 % 05/11/21 21: Neut % (Auto) 90.1 % 05/11/21 21:02 Lymph % (Auto) 2.5 % 05/11/21 21:02 Fannin % (Auto) 6.9 % 05/11/21 21:02 Eos % (Auto) 0.1 % 05/11/21 21: Baso % (Auto) 0.0 % 05/11/21 21: Neut # (Auto) 14.93 K/uL (1.4-6.5) H 05/11/21 21:02 Lymph # (Auto) 0.42 K/uL (1.2-3.4) L 05/11/21 21:02 Fannin # (Auto) 1.14 K/uL (0.11-0.59) H 05/11/21 21:02 Eos # (Auto) 0.01 K/uL (0-0.5) 05/11/21 21:02 Baso # (Auto) 0.00 K/uL (0-0.2) 05/11/21 21: Immature Gran # (Auto) 0.06 K/uL (0.00-0.02) H 05/11/21 21:02 Sodium 132 mmol/L (136-145) L 05/11/21 21:02 Potassium 3.7 mmol/L (3.5-5.1) 05/11/21 21:02 Chloride 101 mmol/L (98-107) 05/11/21 21:02 Carbon Dioxide 22 mmol/L (21-32) 05/11/21 21:02 Anion Gap 9.0 (3-11) 05/11/21 21:02 BUN 22 mg/dl (7-18) H 05/11/21 21:02 Creatinine 0.71 mg/dl (0.6-1.4) 05/11/21 21:02 Est Cr Clr Drug Dosing 105.7 ml/min 05/11/21 21:02 Est GFR ( Amer) 113.3 ml/min 05/11/21 21:02 Est GFR (Non-Af Amer) 97.8 ml/min 05/11/21 21:02 BUN/Creatinine Ratio 30.8 (10-20) H 05/11/21 21:02 Glucose 156 mg/dl (70-99) H 05/11/21 21:02 Lactate 2.1 mmol/L (0.4-2.0) H* 05/11/21 21:02 Calcium 8.5 mg/dl (8.5-10.1) 05/11/21 21: Magnesium 1.9 mg/dl (1.8-2.4) 05/11/21 21:02 Total Bilirubin 0.9 mg/dl (0.2-1) 05/11/21 21:02 AST 9 U/L (15-37) L 05/11/21 21:02 ALT 19 U/L (12-78) 05/11/21 21:02 Alkaline Phosphatase 106 U/L (45-117) 05/11/21 21:02 Total Creatine Kinase 25 U/L (39-308) L 05/11/21 21:02 Troponin I 0.248 ng/ml (0-0.045) H* 05/11/21 21:02 Total Protein 6.7 gm/dl (6.4-8.2) 05/11/21 21:02 Albumin 2.3 gm/dl (3.4-5.0) L 05/11/21 21:02 Globulin 4.4 gm/dl (2.5-4.0) H 05/11/21 21:02 Albumin/Globulin Ratio 0.5 (0.9-2) L 05/11/21 21: TSH 1.250 uIu/ml (0.300-4.500) 05/11/21 21:02 Urine Color Dark Yellow 05/11/21 22:20 Urine Appearance Clear (Clear) 05/11/21 22:20 Urine pH 5.5 (4.5-7.5) 05/11/21 22:20 Ur Specific [place] 1.031 (1.000-1.030) H 05/11/21 22:20 Urine Protein 2+ (Negative) H 05/11/21 22:20 Urine Glucose (UA) Negative (Negative) 05/11/21 22:20 Urine Ketones 2+ (Negative) H 05/11/21 22:20 Urine Blood Negative (Negative) 05/11/21 22:20 Urine Nitrite Negative (Negative) 05/11/21 22:20 Urine Bilirubin 1+ (Negative) H 05/11/21 22:20 Urine Urobilinogen Negative (Negative) 05/11/21 22:20 Ur Leukocyte Esterase Negative (Negative) 05/11/21 22:20 Urine WBC (Auto) 1-5 /hpf (0-5) 05/11/21 22:20 Urine RBC (Auto) 0-4 /hpf (0-4) 05/11/21 22:20 U Hyaline Cast (Auto) 1-5 /lpf (0-5) 05/11/21 22:20 U Epithel Cells (Auto) 20-30 /lpf (0-5) H 05/11/21 22:20 Urine Bacteria (Auto) Negative (Negative) 05/11/21 22:20 Amorphous Sediment Present (None Prsent) A 05/11/21 22:20 Urine Yeast Not Reportable 05/11/21 22:20 COVID-19 Eval Order Covid19 at [facility] 05/11/21 21:11 SARS-CoV-2 (PCR) NEGATIVE (Negative) 05/11/21 21:[address] 05/11/21 20:25 CT SCAN OF THE CERVICAL SPINE CLINICAL HISTORY: Neck pain. Generalized weakness. COMPARISON STUDY: No priors. TECHNIQUE: CT scan of the cervical spine is performed from the skull base to the upper thoracic spine. Images are reviewed in the axial, sagittal, and coronal planes. IV contrast was not administered for this examination. A dose lowering technique was utilized adhering to the principles of ALARA. CT DOSE: 1056.49 mGy.cm FINDINGS: Skeletal structures: The skeletal structures are well mineralized. 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 There is only 2 mm of offset of the odontoid process with the C2 vertebral body. Advanced productive change is seen at the atlantodental articulation. No acute fracture or subluxation is identified Involving the cervical spine. Vertebral body height and alignment are maintained. Small anter ior osteophytes are seen throughout. The odontoid process and lateral masses are intact. The atlantoaxial articulation is preserved. The spinous processes appear intact. There is a chronic superior endplate compression deformity of T1. There is mild to moderate multilevel cervical spondylosis. Uncovertebral and facet arthropathy contribute to neural foraminal stenosis at several levels. A small bone island is incidentally noted in the body of C7. Intervertebral discs: Mild to moderate disc space narrowing is seen at all cervical levels between C3-C4 and C6-C7. Central canal: Widely patent. Soft tissues: The prevertebral and paraspinous soft tissues are within normal limits. There is atherosclerotic calcification of the carotid bulbs. Calvarium: The visualized calvarium at the skull base appears intact. Brain parenchyma: Partially visualized brain parenchyma at the skull base is within normal limits. Mastoids: The mastoid air cells are well pneumatized. Lung apices: Clear as visualized. IMPRESSION: 1. There is no evidence of acute fracture or subluxation involving the cervical spine. 2. There is a chronic nonunited fracture through the base of the odontoid proc ess versus an os odontoideum. A nonunited fracture is favored. 3. There is only mild offset of the odontoid process with the body of C2, and advanced degenerative change is seen at the atlantodental articulation. 4. Osteopenia and spondylotic change as above. 5. Mild chronic superior endplate compression deformity of T1. ACT 112: Negative or not required by law. Electronically signed by: Axel Cochran M.D. 05/11/2021 9:49 PM Chest X-Ray 05/11/21 20:25 SINGLE VIEW CHEST CLINICAL HISTORY: Generalized weakness. FINDINGS: 2 AP, portable, semierect chest radiographs are obtained. No prior studies are available for comparison at the time of dictation. The heart is mildly enlarged noting atherosclerotic calcification of the thoracic aorta. Ther e is prominence of the pulmonary vasculature. Enlargement of the central pulmonary arteries suggests pulmonary artery hypertension. Atelectasis is seen at the lung bases. No airspace consolidation or large pleural effusion is identified. No pneumothorax is seen. The skeletal structures are osteopenic. The bony thorax is grossly intact. Arthritic change is noted in the shoulders. IMPRESSION: 1. Cardiomegaly with prominence of the pulmonary vasculature. Correlate clinically for evidence of mild congestive failure. 2. No airspace consolidation or large pleural effusion is identified. ACT 112: Negative or not required by law. Electronically signed by: Axel Cochran M.D. 05/11/2021 10:[address] 05/11/21 20:25 CT SCAN OF THE BRAIN WITHOUT IV CONTRAST CLINICAL HISTORY: Generalized weakness. COMPARISON STUDY: No priors. TECHNIQUE: Unenhanced axial CT scan of the brain is performed from the vertex to the skull base. A dose lowering technique was utilized adhering to the principles of ALARA. FINDINGS: Brain parenchyma: There is mild age-related involutional change. There is no hemorrhage, mass effect, or evidence of acute territorial ischemia by CT criteria. Poole-white matter differentiation is preserved. No extra-axial fluid collection is seen. Ventricles, sulci, cisterns: Normal in configuration. Intracranial vasculature: There is mild atherosclerotic calcification of the cavernous carotid arteries. Calvarium: Unremarkable. There is chronic appearing deformity of the nasal bones. Sinuses and mastoids: The visualized paranasal sinuses are clear. The mastoid air cells are well pneumatized. Orbits: The bony orbits are grossly intact. IMPRESSION: There is no hemorrhage, mass effect, or evidence of acute te rritorial ischemia by CT criteria. ACT 112: Negative or not required by law. Electronically signed by: Axel Cochran M.D. 05/11/2021 9:43 PM Shoulder X-Ray 05/11/21 20:25 RIGHT SHOULDER 3 VIEWS CLINICAL HISTORY: Right shoulder pain. FINDINGS: 3 views of the right shoulder are obtained. No prior studies are available for comparison at the time of dictation. The skeletal structures are osteopenic. There is no radiographic evidence of right shoulder fracture or dislocation. Moderate osteoarthritic change is seen at the glenohumeral joint where there is significant joint space narrowing, bony sclerosis, overgrowth, and subchondral cyst formation. There is flattening and sclerosis of the humeral head. Mild degenerative change is seen at the right acromioclavicular joint. The overlying soft tissues are normal as imaged. The imaged right lung parenchyma appears clear. The heart is enlarged. IMPRESSION: Osteopenia and degenerative change as above with no acute bony abnormality identified. Electronically signed by: Axel Cochran M.D. 05/11/2021 10:47 PM Code Status & VTE Plan Code Status Full code VTE Prophylaxis Plan VTE Prophylaxis will be ordered: Yes PG Care Time/CCT Total # of Minutes Spent Total Time Spent with Patient: Total time spent is greater than 50% in coordination of care (as documented) at patient's floor/unit and/or counseling patient: Coding Level of Care Code 21071 Initial Inpt Care Lvl 3 Diagnoses Chronic neck pain M54.2; G89.29 Cervical spine fracture S12.9XXA Acute pain of right shoulder M25.511 Rheumatoid arthritis M06.9 Elevated troponin R77.8 Debilitated R53.81 Joint contracture of left lower leg M24.562 Joint contracture of right lower leg M24.561 Weakness R53.1
[2021-05-12] MEDS ORDERED: HYDROCORTISONE SOD SUCCINATE 100 MG/2 ML VIAL IV SCH (03:18)
[2021-05-12] MEDS ORDERED: ACETAMINOPHEN 325 MG TAB PO PRN (03:18)
[2021-05-12] MEDS ORDERED: ONDANSETRON INJ 2 MG/ML 2 ML VIAL IV PRN (03:18)
[2021-05-12] MEDS ORDERED: traMADol HCL 50 MG TABLET PO PRN ×2 (03:18→03:24)
[2021-05-12] MEDS ORDERED: NSS + 20MEQ KCL 20 MEQ/1,000 ML BAG IV SCH (03:45)
[2021-05-12] MEDS: MoRPHine SULFATE 4 MG/ML 1 ML CARP\\VIAL IV PRN ×4 (03:59→17:32)
[2021-05-12] MEDS: HYDROCORTISONE SOD 100 MG in SYRINGE 0 ML IV SCH ×3 (03:59→20:14)
--- NOTE | 2021-05-12 08:03 | Magnetic Resonance Report ---
CERVICAL SPINE MRI HISTORY: Neck pain. neck fracture by CT TECHNIQUE: Multiplanar multisequence MRI of the cervical spine was performed without the use of contr ast. COMPARISON STUDY: Cervical spine CT 05/11/2021. FINDINGS: Motion artifact results in suboptimal evaluation. Mild scoliosis which may be positional. S mall fluid collection at the base of the odontoid with sclerotic margins. Therefore, this favors a ch ronic nondisplaced type II odontoid fracture. There is trace prevertebral edema at the C2-C3 level. T here is mild soft tissue edema posterior to the C1 and C2 levels. No marrow edema within the cervical spine to suggest an acute fracture. There is 2 mm of anterior displacement of the nonunited odontoid process in relation to the odontoid base. This results in moderate to severe central canal narrowing at the C1 level with mild cord deformity. There is an old mild superior endplate compression deformi ty at T1. The C1-C2 interval remains intact. There is also an old mild superior endplate compression fracture at T3. C2-C3: No significant central canal narrowing. There is mild to moderate bilateral neural foraminal n arrowing. C3-C4: Small broad-based posterior disc osteophyte complex resulting in mild antral canal narrowing. There is moderate right and severe left neural foraminal narrowing. C4-C5: Small broad-based posterior disc osteophyte complex resulting in mild central canal and modera te bilateral neural foraminal narrowing. C5-C6: Small broad-based posterior disc osteophyte complex with a small left paracentral focal disc p rotrusion. This abuts and slightly deforms left anterior cord. There is also moderate bilateral neura l foraminal narrowing. C6-C7: Small broad-based posterior disc osteophyte complex resulting in mild central canal narrowing. There is moderate right and severe left neural foraminal narrowing. C7-T1: No significant central canal or neural foraminal narrowing. IMPRESSION: 1. 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 There is mild anterior displac ement of the odontoid tip and relation to the C2 body resulting in moderate to severe central canal n arrowing and mild cord deformity at the C1 level. No marrow edema within the cervical spine to sugges t an acute fracture. 2. There is trace prevertebral edema at the C2-C3 level and mild soft tissue edema posterior to the C 1 and C2 levels. This could be secondary to the chronic fracture or represent an acute ligamentous in jury. 3. Additional degenerative changes as described above. 4. Mild motion artifact is noted. 5. An old superior endplate compression fracture at T1 and T3. ACT 112: Negative or not required by law. Electronically signed by: Jacky Morocho M.D. 05/12/2021 8:02 AM
[2021-05-12] MEDS ORDERED: BETAMETHASONE DIP AUG 0.05% OINT 15 GM TUBE EXT SCH (09:00)
--- NOTE | 2021-05-12 10:27 | Orthopedic Consultation ---
Date of Consultation May 12, 2021 Assessment & Plan (1) Cervical spine fracture: Assessment nonunion of odontoid fracture. Plan a long discussion with this patient reviewing his CAT scan and MRI findings. He clearly has a nonunion and with rheumatoid arthritis significant overgrowth of tissue creating spinal stenosis. He would be at risk if he were to fall and have any transfer of force across the cervical spine. He would be at risk for cord damage. Did not appreciate cord damage or any evidence of myelomalacia at this time. He may ultimately need to seek an opinion for surgical decompression stabilization. I would not feel confident doing it at our institution. At this time there is nothing urgent regarding a surgical consultation and he could pursue this on an outpatient basis. Present on Admission?: Yes History of Present Illness Reason for Consultation: Neck pain Attending Physician: Lesley Collins MD History of Present Illness This is a 66-year-old male with chronic persistent neck pain with an exacerbation recently comes emergency with multiple medical issues. This morning he states he does have neck pain that he describes more muscular in nature. Denies any numbness tingling radicular complaints down his arms. Denies any numbness and tingling in legs. He does have advanced rheumatoid arthritis with contraction deformities of his knees and pain in his hips. It limits his ability to ambulate. He uses a wheelchair and exacerbates his symptoms with transfers from chair to bed. He does not recall an incident where he fell or broke his neck. He is aware that he has had a fracture there. Allergies Allergy/AdvReac Type Severity Reaction Status Date / Time No Known Allergies Allergy Verified 05/11/21 20:27 Home Medications Medication Instructions Recorded Confirmed Type apixaban [Eliquis] 5 mg PO BID 05/11/21 05/11/21 History betamethasone dipropionate 1 applic TOPICAL BID 05/11/21 05/11/21 History etanercept [Enbrel] 50 mg SUBCUT .[id number] 05/11/21 05/11/21 History naproxen [Naprosyn] 250 - 500 mg PO HS 05/11/21 05/11/21 History prednisone 20 mg PO DIRECTED 05/11/21 05/11/21 History ropinirole 1 mg PO HS 05/11/21 05/11/21 History terazosin 2 mg PO HS 05/11/21 05/11/21 History tramadol 50 mg PO DAILY PRN 05/11/21 05/11/21 History Patient History Medical History (Updated 05/12/21 @ 03:57 by Francisco Guerrero MD) Cervical spine fracture Chronic neck pain 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 His tenderness palpation of the paracervical musculature. He is limited cervical range of motion. There is no evidence Lhermitte's phenomenon. He has no Laura sign. He has no evidence of clonus to the ankles. Results & Data ([facility]) Vital Signs (Past 12 Hours) Vital Signs Temp Pulse Pulse Resp BP BP Pulse Ox 05/12/21 07:35 36.8 C 91 H 19 144/71 H 98 05/12/21 04:49 109 H 05/12/21 03:05 36.9 C 100 H 21 164/84 H 100 05/12/21 01:30 96 H 17 05/12/21 01:19 94 H 17 123/70 05/12/21 01:12 94 H 22 05/12/21 00:30 93 H 25 H 05/11/21 23:51 91 H 20 137/64 100 05/11/21 23:42 100 H 137/64 05/11/21 22:39 92 H 16 137/64 100 05/11/21 22:38 92 H 19 137/64 100 05/11/21 22:31 112 H 162/69 H
--- NOTE | 2021-05-12 10:45 | Cardiology Consultation ---
Date of Consultation May 12, 2021 Assessment & Plan (1) Elevated troponin: (2) Cardiomyopathy: (3) Atrial flutter: (4) Bacteremia: (5) Hypertension: ASSESSMENT/PLAN: 1. Elevated troponin: He did not present with acute coronary syndrome. He had positional chest discomfort when slouched in his wheelchair for the past several days which has since subsided. Despite this, his troponin remains low level with very little upward titration. He has wall motion abnormality noted on echocardiogram but LV systolic function has improved compared to transesophageal echo on 02/02/2020. Given regional wall motion abnormalities, would recommend risk factor modification for CAD including high-intensity statin therapy, aspirin 81 mg daily if no contraindication, and beta-lois, which he had been on in the past. 2. Cardiomyopathy: Head severely reduced LV systolic function in 2020 thought to be due to tachycardia in the setting of atrial flutter. LV systolic function has improved. Would resume carvedilol which he had been on in the past for concern of underlying CAD with regional wall motion abnormalities. He has edema but otherwise denies any symptoms of CHF. Would try to maintain relatively even fluid balance. 3. Atrial flutter: Underwent cardioversion in 2019. Sinus rhythm currently. Recommend resuming beta-lois. He had been on carvedilol 12.5 mg twice daily according to PCP note in November of 2020. Start carvedilol 3.125 mg twice daily for now and can titrate upward. He also had been on amiodarone but unclear why he is no longer taking this. Can continue anticoagulation for stroke risk reduction if no contraindications. 4. Bacteremia: Source not known. Notify Dr. Collins of the primary hospitalist service who plans on starting antibiotic therapy. Given his current cervical spine fracture, do not plan to perform transesophageal echo. If there is concern for endocarditis after further evaluation, would consider full treatment course rather than pursuing transesophageal ECHO in his current situation. Will defer antibiotic therapy/course to primary hospitalist service. 5. Hypertension: Has a history of hypertension. Current blood pressure acceptable. Start low-dose beta-lois as above. He had also been on amlodipine in the past. 6. Edema: He denies any heart failure symptoms. Difficult to know his true intravascular volume status. Hypoalbuminemia may be playing a role as well as venous insufficiency as he sits with his legs down pretty consistently as he is wheelchair bound and also sleeps in his wheelchair. 7. Disposition: Cardiology will continue to follow. Please call with any questions or concerns. Patient care discussed with Dr. Collins of the primary hospitalist service. Highly complex medical issues. Today's visit was 70 minutes in duration including [id number] time with the patient, counseling patient, coordinating care, and reviewing multiple records, many of which are in a second chart containing recent hospitalizations and PCP notes, as well as reviewing previous transesophageal echo. Thank you for allowing me to participate in the care of your patient. Please call for any other questions or concerns. Sincerely, Roger Davis M.D. History of Present Illness Reason for Consultation: Elevated troponin Requesting Physician: Dr. Guerrero Attending Physician: Lesley Collins MD History of Present Illness Mr. Dailey is a pleasant 66-year-old gentleman with a history significant for atrial flutter s/p DC CV (02/02/20), cardiomyopathy (possibly tachycardia induced), rheumatoid arthritis, and hypoxemic respiratory failure requiring mechanical ventilation January of 2020. He was previously seen by Dr. Marquez and Dr. Meza in 2019. He was hospitalized in January of 2020 and was found to be in atrial flutter with rapid ventricular response. Details are not entirely clear however critical care note reported that he had cardiac arrest after metoprolol and diltiazem were administered. He was resuscitated including intubation. He was found to have significantly reduced LV systolic function. He underwent transesophageal echo by Dr. Marquez which demonstrated severely reduced LV systolic function with global hypokinesis, followed by cardioversion on 02/02/2020. Initial cardioversion with 30 joules converted atrial flutter to atrial fibrillation. cardioversion was then performed with 200 joules, converting AFib to sinus rhythm.. Throughout the hospital stay he was diagnosed with rhino/enterovirus upper respiratory tract infection and pulmonary edema in the setting of atrial flutter with rapid ventricular response and significantly reduced LV systolic function. On discharge, it stated that he was being sent home on amiodarone, Eliquis, and carvedilol. He was last seen by his PCP on 11/14/2020 at which point amiodarone 200 mg twice daily and carvedilol 12.5 mg twice daily was still part of his medication list. His current medication list does not include such medications and the list was reviewed with him. He has had the following studies/procedures: 1. ALE 02/02/2020 (Jimmy): Severely reduced LV systolic function. EF 25-30%. Moderate to severe global hypokinesis. Moderate LVH. Mild right atrial dilation. Pleural effusion. 2. Cardioversion 02/02/2020: Atrial flutter converted to atrial fibrillation which was then converted to sinus rhythm. He was admitted on 05/12/2021 for right shoulder and neck pain. He has si gnificant rheumatoid arthritis and is wheelchair-bound. He has had chronic neck and right shoulder pain for years. He had acute worsening of his pain over the past few days. He states that his pain was exacerbated by moving a heavy steel door. He took prednisone and tramadol to help improve his pain. Troponin levels were checked in the emergency department and initial troponin was elevated at 0.248, trending to 0.289. He denies chest pain at that time as well as shortness of breath. Blood cultures were also ordered as his WBC was 16.56 on presentation. He denies any fevers. Blood cultures are positive for Gram- positive cocci in clusters. He admits to having bilateral chest discomfort when sleeping in a wheelchair. The pain can be constant and improved with repositioning. This has been ongoing for the past 4-5 days. He denies any chest pain currently. He has severe back pain on occasion. He has what he describes as a little bit of swelling in his lower extremities and he tries to maintain a low-sodium diet. He admits that his feet are typically hanging down while he sits in a wheelchair throughout the day. He denies syncope, near-syncope, or recent palpitations. He does have palpitations chronically on rare occasion, but none recently. He denies orthopnea. He has been seen by orthopedics for nonunion of a Don toy fracture with rheumatoid arthritis significant overgrowth of the tissue creating spinal stenosis. Dr. Hassan recommended surgical consultation on an outpatient basis for possibility of surgical decompression stabilization at another institution. Review of systems: As above. Review of systems otherwise negative/unremarkable. Family history: No known premature CAD. Social history: He quit smoking greater than 30 years ago and smoked approximately 1 pack per day. No alcohol or drug abuse. He has not been . He is unsure if he has any children. He lives alone and it was previously documented that he was homeless. He was unaccompanied today. Allergies Allergy/AdvReac Type Severity Reaction Status Date / Time No Known Allergies Allergy Verified 05/11/21 20:27 Home Medications Medication Instructions Recorded Confirmed Type apixaban [Eliquis] 5 mg PO BID 05/11/21 05/11/21 History betamethasone dipropionate 1 applic TOPICAL BID 05/11/21 05/11/21 History etanercept [Enbrel] 50 mg SUBCUT .[id number] 05/11/21 05/11/21 History naproxen [Naprosyn] 250 - 500 mg PO HS 05/11/21 05/11/21 History prednisone 20 mg PO DIRECTED 05/11/21 05/11/21 History ropinirole 1 mg PO HS 05/11/21 05/11/21 History terazosin 2 mg PO HS 05/11/21 05/11/21 History tramadol 50 mg PO DAILY PRN 05/11/21 05/11/21 History Patient History Medical History (Updated 05/12/21 @ 11:34 by Jorge Davis MD) Acute respiratory failure with hypoxemia Atrial flutter Cardiomyopathy Cervical spine fracture Chronic neck pain History of cardioversion Hypertension Joint contracture of left lower leg Joint contracture of right lower leg Rheumatoid arthritis Social History Smoking Status: Former smoker Hx Alcohol Use: No Hx Substance Use: No Preferred Language: Georgian Communication Ability: Effective 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 Alert and oriented. HEENT: Anicteric sclera. Neck: Neck in a collar. Could not assess for JVD. Cardiac: PMI was non palpable. No ventricular heave. Regular. Normal S1-S2. 1/6 systolic murmur. No rubs or gallops. Pulmonary: Clear to auscultation bilaterally without wheezes, rales, or rhonchi. Abdomen: Soft, nontender, nondistended, with normoactive bowel sounds. No bruits noted. Extremities: 2+ radial pulses bilaterally. 2+ posterior tibialis pulses b ilaterally. 2+ lower extremity edema 1/3 to the knees, with most significant edema involving the feet. No cyanosis. Psychiatric: Affect appears appropriate. Results & Data ([facility]) Vital Signs (Past 12 Hours) Vital Signs Temp Pulse Pulse Resp BP BP Pulse Ox 05/12/21 07:35 36.8 C 91 H 19 144/71 H 98 05/12/21 04:49 109 H 05/12/21 03:05 36.9 C 100 H 21 164/84 H 100 05/12/21 01:30 96 H 17 05/12/21 01:19 94 H 17 123/70 05/12/21 01:12 94 H 22 05/12/21 00:30 93 H 25 H 05/11/21 23:51 91 H 20 137/64 100 05/11/21 23:42 100 H 137/64 Laboratory Results Laboratory Results - last 24 hr 05/11/21 05/11/21 05/11/21 21:02 21:02 21:02 WBC 16.56 H RBC 4.18 L Hgb 10.6 L Hct 32.4 L MCV 77.5 L MCH 25.4 MCHC 32.7 RDW Std Deviation 55.1 H RDW Coeff of Jayjay 19.5 H Plt Count 314 MPV 9.2 Immature Gran % (Auto) 0.4 Neut % (Auto) 90.1 Lymph % (Auto) 2.5 [place] % (Auto) 6.9 Eos % (Auto) 0.1 Baso % (Auto) 0.0 Neut # (Auto) 14.93 H Lymph # (Auto) 0.42 L [place] # (Auto) 1.14 H Eos # (Auto) 0.01 Baso # (Auto) 0.00 Immature Gran # (Auto) 0.06 H Sodium 132 L Potassium 3.7 Chloride 101 Carbon Dioxide 22 Anion Gap 9.0 BUN 22 H Creatinine 0.71 Est Cr Clr Drug Dosing 105.7 Est GFR ( Amer) 113.3 Est GFR (Non-Af Amer) 97.8 BUN/Creatinine Ratio 30.8 H Glucose 156 H Estimat Average Glucose Hemoglobin A1c Lactate 2.1 H* Calcium 8.5 Magnesium 1.9 Total Bilirubin 0.9 AST 9 L ALT 19 Alkaline Phosphatase 106 Total Creatine Kinase 25 L Troponin I 0.248 H* Total Protein 6.7 Albumin 2.3 L Globulin 4.4 H Albumin/Globulin Ratio 0.5 L TSH 1.250 Urine Color Urine Appearance Urine pH Ur Specific Weed Urine Protein Urine Glucose (UA) Urine Ketones Urine Blood Urine Nitrite Urine Bilirubin Urine Urobilinogen Ur Leukocyte Esterase Urine WBC (Auto) Urine RBC (Auto) U Hyaline Cast (Auto) U Epithel Cells (Auto) Urine Bacteria (Auto) Amorphous Sediment Urine Yeast COVID-19 Eval Order SARS-CoV-2 (PCR) Bld Cult Staph aureus PCR Blood Culture MRSA PCR 05/11/21 05/11/21 05/11/21 21:02 21:11 21:11 WBC RBC Hgb Hct MCV MCH MCHC RDW Std Deviation RDW Coeff of Jayjay Plt Count MPV Immature Gran % (Auto) Neut % (Auto) Lymph % (Auto) [place] % (Auto) Eos % (Auto) Baso % (Auto) Neut # (Auto) Lymph # (Auto) [place] # (Auto) Eos # (Auto) Baso # (Auto) Immature Gran # (Auto) Sodium Potassium Chloride Carbon Dioxide Anion Gap BUN Creatinine Est Cr Clr Drug Dosing Est GFR ( Amer) Est GFR (Non-Af Amer) BUN/Creatinine Ratio Glucose Estimat Average Glucose Hemoglobin A1c Lactate Calcium Magnesium Total Bilirubin AST ALT Alkaline Phosphatase Total Creatine Kinase Troponin I Total Protein Albumin Globulin Albumin/Globulin Ratio TSH Urine Color Urine Appearance Urine pH Ur Specific Weed Urine Protein Urine Glucose (UA) Urine Ketones Urine Blood Urine Nitrite Urine Bilirubin Urine Urobilinogen Ur Leukocyte Esterase Urine WBC (Auto) Urine RBC (Auto) U Hyaline Cast (Auto) U Epithel Cells (Auto) Urine Bacteria (Auto) Amorphous Sediment Urine Yeast COVID-19 Eval Order Covid19 at [facility] SARS-CoV-2 (PCR) NEGATIVE Bld Cult Staph aureus PCR Pending Blood Culture MRSA PCR Pending 05/11/21 05/12/21 05/12/21 22:20 05:20 05:20 WBC RBC Hgb Hct MCV MCH MCHC RDW Std Deviation RDW Coeff of Jayjay Plt Count MPV Immature Gran % (Auto) Neut % (Auto) Lymph % (Auto) [place] % (Auto) Eos % (Auto) Baso % (Auto) Neut # (Auto) Lymph # (Auto) [place] # (Auto) Eos # (Auto) Baso # (Auto) Immature Gran # (Auto) Sodium Potassium Chloride Carbon Dioxide Anion Gap BUN Creatinine Est Cr Clr Drug Dosing Est GFR ( Amer) Est GFR (Non-Af Amer) BUN/Creatinine Ratio Glucose Estimat Average Glucose Pending Hemoglobin A1c Pending Lactate Calcium Magnesium Total Bilirubin AST ALT Alkaline Phosphatase Total Creatine Kinase Troponin I 0.289 H* Total Protein Albumin Globulin Albumin/Globulin Ratio TSH Urine Color Dark Yellow Urine Appearance Clear Urine pH 5.5 Ur Specific [place] 1.031 H Urine Protein 2+ H Urine Glucose (UA) Negative Urine Ketones 2+ H Urine Blood Negative Urine Nitrite Negative Urine Bilirubin 1+ H Urine Urobilinogen Negative Ur Leukocyte Esterase Negative Urine WBC (Auto) 1-5 Urine RBC (Auto) 0-4 U Hyaline Cast (Auto) 1-5 U Epithel Cells (Auto) 20-30 H Urine Bacteria (Auto) Negative Amorphous Sediment Present A Urine Yeast Not Reportable COVID-19 Eval Order SARS-CoV-2 (PCR) Bld Cult Staph aureus PCR Blood Culture MRSA PCR Diagnostic Findings Multiple medical records reviewed. Previous hospital visits and PCP notes were reviewed but they are listed under a separate chart but consistent with the history that he provided during our visit today. Preliminary echo review 05/12/2021: LV systolic function does not appear to be significantly reduced. Basal inferior, basal inferoseptal, and inferolateral wall motion abnormalities were noted. Based on transesophageal echo report from 2020, LV systolic function has improved. Formal review to follow. ECG personally reviewed 05/11/2021: Sinus tachycardia 114 beats per minute. PAC. Inferior T-wave inversion. Telemetry personally reviewed: Sinus rhythm. No arrhythmia. Cervical spine MRI 05/12/2021: Chronic nonunited type 2 odontoid fracture. Mild anterior displacement of the odontoid tip. Resulting in moderate to severe central canal narrowing and mild cord deformity at C1 level. Trace prevertebral edema at C2-C3 and mild soft tissue edema posterior to C1 and C2, possibly due to chronic fracture or acute ligamentous injury. Head CT 05/11/2021: No hemorrhage per Radiology. Chest x-ray 05/11/2021: No infiltrate. No pleural effusion. Prominence of pulmonary vasculature per Radiology. Images personally reviewed. Medications Administered Current Inpatient Medications Acetaminophen (Acetaminophen 325 Mg Tab) 650 mg PO Q4H PRN PRN Reason: Pain or Fever Stop: 06/11/21 03:17 Baclofen (Baclofen 10 Mg Tab) 10 mg PO QID PRN PRN Reason: Muscle Spasm Stop: 06/11/21 08:59 Betamethasone Dipropion Augmented (Betamethasone Dip Aug 0.05% Oint 15 Gm Tube) 1 appln EXT BID SALEEM Stop: 06/11/21 08:59 Last Admin: 05/12/21 08:15 Dose: Not Given Documented by: Potassium Chloride/Sodium Chloride (Normal Saline W/20 Meq Kcl) 20 meq in 1,000 mls @ 60 mls/hr IV .[id number] SALEEM Stop: 06/11/21 03:44 Last Admin: 05/12/21 04:09 Dose: 60 mls/hr Documented by: Hydrocortisone Sodium (Succinate 100 mg/ Syringe) 2 mls @ 4 mls/min IV Q8H SALEEM Stop: 06/11/21 03:59 Last Admin: 05/12/21 03:59 Dose: 4 mls/min Documented by: Morphine Sulfate (Morphine Sulfate 2 Mg/Ml Carp) 2 mg IV Q4H PRN PRN Reason: Moderate Pain Stop: 05/26/21 03:32 Morphine Sulfate (Morphine Sulfate 4 Mg/Ml 1 Ml Carp\Vial) 4 mg IV Q4H PRN PRN Reason: Severe Pain Stop: 05/26/21 03:32 Last Admin: 05/12/21 08:14 Dose: 4 mg Documented by: Ondansetron HCl (Ondansetron Inj 2 Mg/Ml 2 Ml Vial) 4 mg IV Q6H PRN PRN Reason: Nausea Stop: 06/11/21 03:17 Ropinirole HCl (Ropinirole Hcl 1 Mg Tablet) 1 mg PO HS SALEEM Stop: 06/11/21 20:59 Terazosin HCl (Terazosin Hcl 1 Mg Cap) 2 mg PO HS SALEEM Stop: 06/11/21 20:59 Tramadol HCl (Tramadol Hcl 50 Mg Tablet) 50 mg PO Q4H PRN PRN Reason: Moderate Pain Stop: 06/11/21 03:17 Tramadol HCl (Tramadol Hcl 50 Mg Tablet) 50 mg PO Q4H PRN PRN Reason: Moderate Pain Stop: 06/11/21 03:23 Tramadol HCl (Tramadol Hcl 50 Mg Tablet) 100 mg PO Q4H PRN PRN Reason: Severe Pain Stop: 06/11/21 03:29 PG Care Time/CCT Total # of Minutes Spent Total Time Spent with Patient: Total time spent is greater than 50% in community sports coordinator rdination of care (as documented) at patient's floor/unit and/or counseling patient: Coding Level of Care Code 93342 Initial Inpt Care Lvl 3 Diagnoses Elevated troponin R77.8 Cardiomyopathy I42.9 Atrial flutter I48.92 Bacteremia R78.81 Hypertension I10
[2021-05-12] MEDS ORDERED: VANCOMYCIN CONSULT ACTIVE PRN (10:54)
[2021-05-12 11:20] LABS: Hemoglobin 9.4 g/dL (14.0-18.0); Immature Granulocytes # (auto) 0.05 K/uL (0.00-0.02); Immature Granulocytes % (auto) 0.3 %; Lymphocytes # (auto) 0.53 K/uL (1.2-3.4); Lymphocytes % (auto) 3.1 %; Mean Corpuscular Hemoglobin 25.3 pg (25-34); Mean Corpuscular Hgb Conc 32.4 g/dL (32-36); Mean Platelet Volume 9.3 fL (7.4-10.4); Monocytes # (auto) 0.72 K/uL (0.11-0.59); Monocytes % (auto) 4.3 %; Neutrophils # (auto) 15.61 K/uL (1.4-6.5); Neutrophils % (auto) 92.3 %; Platelet Count 272 K/uL (130-400); RDW Coefficient of Variation 19.1 % (11.5-14.5); RDW Standard Deviation 55.1 fL (36.4-46.3); Red Blood Count 3.72 M/uL (4.7-6.1); White Blood Count 16.91 K/uL (4.8-10.8)
[2021-05-12] MEDS ORDERED: VANCOMYCIN HCL 1,750 MG in SODIUM CHLORIDE 0.9% 500 ML IV STA (11:24)
[2021-05-12 11:44] LABS: Calcium 8.2 mg/dl (8.5-10.1); Est GFR (African American) 119.8 ml/min; Est GFR (Non-African American) 103.4 ml/min; Potassium 4.4 mmol/L (3.5-5.1)
[2021-05-12] MEDS: BACLOFEN 10 MG TAB PO PRN (12:15)
--- NOTE | 2021-05-12 14:09 | Pharmacy Report ---
Pharmacy Abx Initial Consult - Date of Service May 12, 2021 - Pharmacy Dosing Scope Date of Consult: 05/12/21 Consultation requested by: Dr. Collins Pharmacy is consulted to initiate vancomycin IV dosing therapy, order appropriate labs and adjust drug dose/frequency. - Subjective The patient is a 66 year old M admitted on 05/12/21 02:19. - Objective Height: 5 ft 10 in Weight: 82.5 kg Vital Signs (Past 12hrs): Vital Signs Temp Pulse Pulse Resp BP Pulse Ox 05/12/21 11:23 36.5 C 86 17 135/64 96 05/12/21 07:35 36.8 C 91 H 19 144/71 H 98 05/12/21 04:49 109 H 05/12/21 03:05 36.9 C 100 H 21 164/84 H 100 Lab Results (24hrs): Laboratory Tests (24 Hours) 05/12/21 05/12/21 05/11/21 11:08 11:08 21:02 WBC 16.91 H Neut # (Auto) 15.61 H Creatinine 0.62 0.71 Est Cr Clr Drug Dosing 121.0 105.7 Total Creatine Kinase 25 L 05/11/21 21:02 WBC 16.56 H Neut # (Auto) 14.93 H Creatinine Est Cr Clr Drug Dosing Total Creatine Kinase - Risk Factors for Resistance * Immunocompromised (chronic steroid therapy, chemotherapy, immunomodulators) - Assessment & Plan Assessment 66 year old M being treated with IV vancomycin therapy for bacteremia in the setting of a c. spine fracture. Past medical history significant for advanced rheumatoid arthritis with contraction deformities and limited ability to ambulate (wheelchair bound). Blood cultures drawn on admission are positive (4/4) for gram positive cocci in clusters. Blood S. aureus PCR is positive, MRSA PCR (-). Pending finalized culture results. SCr is stable, although likely an overestimate of true renal function. Plan Vancomycin IV * Loading dose: 1750mg (~21 mg/kg) * Maintenance dose: 1000mg IV (~12mg/kg) every 8 hours * Goal trough level for bacteremia : 15-20 mcg/mL * Trough level ordered for 05/13 prior to 3rd dose of the regimen to assess clearance Pharmacy will continue to follow and will adjust dose/frequency as necessary. Thank you.
--- NOTE | 2021-05-12 14:25 | XCELERA ---
[id number]
--- NOTE | 2021-05-12 16:06 | History & Physical Bridge Note ---
Date of Service May 12, 2021 History & Physical Bridge Note I have examined the patient, reviewed the History & Physical and in the interval since the performance of the History & Physical I have noted the following changes of clinical significance: Pt seen and examined, chart reviewed. Discussed his care with Orthopedic SPine surgery and with Cardiology. It was also discovered that he had two seperate charts and so upon admission, none of his previous visits or history of labs or tests or consults were a vailable. This was discussed with med records and the two charts were merged for convenience. Pt reports pain in neck and right hsoulder, pain in LLE with spasms with contractures. he did have an open wound draining on his left fourth toe about 2 weeks ago that is now closed over. Blood cultures returned positive for MSSA this AM. Started on IV Vancomycin ID consult placed for after the holiday. Source likely left toe wound recently. No other wounds and Ortho does NOT think neck has discitis Cannot have a ALE due to odontoid fracture so would opt for treating for 6 weeks empirically for SBE Med rec is not completed or updated but pt does seem to know his meds. He has not been everette Eliquis as he thought he was to stop after one month. H ehas not followed up with Cardiology since last year. -restart Coreg low dose and titrate up for elevatd troponin, wall motion abnormality on ECHO, ?ischemic CM start ASA 81 as per Cardio -restart ELiquis for parox a flutter no longer on amiodarone -continue IV HC for now for stress dose steroids, then return to home po prednisone -start IV Vanco and repeat BCxs tomorrow -for odontoid fracture, needs outpt referral for high risk surgery at tertiary care facility as per Ortho. Can wear soft collar prn for comfort
[2021-05-12] MEDS: ASPIRIN 81 MG ECTAB PO SCH (16:32)
[2021-05-12] MEDS: rOPINIRole HCL 1 MG TABLET PO PRN (17:34)
[2021-05-12] MEDS: VANCOMYCIN HCL 1,000 MG in SODIUM CHLORIDE 0.9% 250 ML IV SCH (20:14)
[2021-05-12] MEDS: rOPINIRole HCL 1 MG TABLET PO SCH (20:15)
[2021-05-12] MEDS: TERAZOSIN HCL 1 MG CAP PO SCH (20:15)
[2021-05-12] MEDS: carvediloL 3.125 MG TAB PO SCH (20:16)
[2021-05-12] MEDS: APIXABAN 5 MG TABLET PO SCH (20:16)
[2021-05-12] MEDS: NAPROXEN 250 MG TAB PO SCH (20:17)
--- NOTE | 2021-05-13 00:24 | Electrocardiogram Report ---
Test Reason : Blood Pressure : / mmHG Vent. Rate : 114 BPM Atrial Rate : 114 BPM P-R Int : 154 ms QRS Dur : 116 ms QT Int : 328 ms P-R-T Axes : 055 054 003 degrees QTc Int : 452 ms Sinus tachycardia Possible Left atrial enlargement Possible Anterior infarct , age undetermined T wave abnormality, consider inferior ischemia Nonspecific ST abnormality Abnormal ECG No previous ECGs available Confirmed by Jorge Davis ([id number]) on 05/13/2021 12:24:13 AM Referred By: REFERRED SELF Confirmed By:Jorge Davis
[2021-05-13] MEDS: VANCOMYCIN HCL 1,000 MG in SODIUM CHLORIDE 0.9% 250 ML IV SCH ×3 (03:31→20:25)
[2021-05-13] MEDS: HYDROCORTISONE SOD 100 MG in SYRINGE 0 ML IV SCH ×3 (03:31→20:26)
[2021-05-13] MEDS: MoRPHine SULFATE 4 MG/ML 1 ML CARP\\VIAL IV PRN ×3 (04:11→21:29)
[2021-05-13 07:21] LABS: Estimated Average Glucose 100 mg/dl; Hemoglobin A1C 5.1 % (4.5-5.6)
[2021-05-13 07:23] LABS: Basophils # (auto) 0.01 K/uL (0-0.2); Basophils % (auto) 0.1 %; Hematocrit (blood only) 30.7 % (42-52); Hemoglobin 9.7 g/dL (14.0-18.0); Immature Granulocytes # (auto) 0.03 K/uL (0.00-0.02); Immature Granulocytes % (auto) 0.2 %; Lymphocytes % (auto) 3.8 %; Mean Corpuscular Hgb Conc 31.6 g/dL (32-36); Mean Corpuscular Volume 79.1 fL (80-100); Mean Platelet Volume 9.5 fL (7.4-10.4); Monocytes # (auto) 0.55 K/uL (0.11-0.59); Monocytes % (auto) 3.4 %; Neutrophils # (auto) 14.79 K/uL (1.4-6.5); Neutrophils % (auto) 92.5 %; Platelet Count 332 K/uL (130-400); RDW Standard Deviation 55.4 fL (36.4-46.3); Red Blood Count 3.88 M/uL (4.7-6.1); White Blood Count 15.98 K/uL (4.8-10.8)
[2021-05-13 07:51] LABS: Albumin Level 1.7 gm/dl (3.4-5.0); Calcium 8.2 mg/dl (8.5-10.1); Creatinine Clr Calc Pharmacy 131.6 ml/min; Potassium 4.5 mmol/L (3.5-5.1)
[2021-05-13 07:54] LABS: Albumin Globulin Ratio 0.4 (0.9-2); Bilirubin,Total 0.4 mg/dl (0.2-1); Globulin 4.1 gm/dl (2.5-4.0); Total Protein 5.8 gm/dl (6.4-8.2)
[2021-05-13] MEDS: APIXABAN 5 MG TABLET PO SCH ×2 (08:33→20:26)
[2021-05-13] MEDS: carvediloL 3.125 MG TAB PO SCH (08:33)
[2021-05-13] MEDS: ASPIRIN 81 MG ECTAB PO SCH (08:33)
[2021-05-13] MEDS ORDERED: VANCOMYCIN TROUGH ONE (11:30)
--- NOTE | 2021-05-13 13:52 | Pharmacy Report ---
Pharmacy Abx Dose Short Note - Date of Service May 13, 2021 - Assessment & Plan Assessment 66 year old M receiving vancomycin for treatment of bacteremia Day # 2 of antimicrobial therapy. Plan Vancomycin * Trough level came back therapeutic at ~17 mcg/ml (goal 15-20 mcg/ml for bacteremia) This level was collected prior to steady state to ensure therapeutic. Would anticipate true level to be closer to ~20 mcg/ml * Blood culture with staph species, awaiting further sensitives currently * Plan to continue with current vancomycin regimen for now 1 gm iv q 8 hr * Renal function remains stable Pharmacy will continue to follow and will adjust dose/frequency as necessary. Thank you.
--- NOTE | 2021-05-13 13:57 | Hospitalist Progress Note ---
Date of Service May 13, 2021 Assessment & Plan (1) Bacteremia: / blood cultures from 05/11 growing MSSA (final culture pending, but PCR indicates no MRSA). - Continue vancomycin until cultures finalized, then switch to cefazolin - Repeat blood cultures from 05/13 ending. - Unclear source as only had a few small lacerations which are now healing. - TTE on 05/12 did not show any vegetations. ALE not possible due to his cervical fracture. - ID consult pending (2) Cervical spine fracture: Seen by Dr. Hassan on 05/12. He is at risk of having cord damage if he were to fall. Dr. Hassan recommended outpatient follow-up at a tertiary care facility. - Continue soft collar for now (3) Elevated troponin: Troponins stable ~0.25. Echo on 05/12 showed EF 50 - 55%. Severe hypokinesis of inferolateral wall. Akinesis of basal inferior and basal inferoseptal wall segments. - Do NOT think this was ACS. Do not see evidence of a Type II RI (ie, no indication of EKG changes, no known acute change in heart function as seen on echo, no chest pain linked to cardiac cause) - Continue ASA (4) Rheumatoid arthritis: Severe disease. On etanercept (Enbrel) at home along with steroids, though per notes, he was tapering those. - Continue prednisone (5) Atrial flutter: Hx of atrial flutter with cardioversion in 2019. Presently in sinus rythm. - Continue beta-lois as above - Continue apixaban (6) Hypertension: BP today is 155/75. - Will monitor now that he's back on carvedilol and lisinopril (7) Restless leg syndrome: More bothersome while in bed in the hospital. - Continue standing ropinirole HS as well as daily PRN (8) BPH (benign prostatic hyperplasia): More bothersome while in bed. - Continue standing terazosin HS as well as daily PRN (9) DVT prophylaxis: On apixaban for hx of atrial flutter Admission and Anticipated Discharge Date Admission Date: May 12, 2021 Subjective Overall doing well today. No fevers overnight. Reports no fevers/chills, chest pain, shortness of breath, abdominal pain, nausea, or vomiting. Physical Exam Constitutional: WD/WN, vitals as above Eyes: EOM intact bilaterally; no conjunctival abnormality ENMT: external ear and nose normal, oropharynx normal Neck: trachea midline, no thyromegaly normal visual inspection Respiratory: normal respiratory effort, lungs clear to auscultation no respiratory distress Cardiovascular: RRR, no murmur, no edema Gastrointestinal (Abdomen): Inspection/Auscultation: abdomen normal to inspection; abdomen not distended Musculoskeletal: Extremities: + lower leg abnormality (Contractures) Skin: no rashes, warm and dry Neurologic: awake; + does not move all extremities Psychiatric: Orientation: alert, oriented to person and cooperative Results & Data Results & Data ([facility]) Vital Signs (Past 12 Hours) Vital Signs Temp Pulse Resp BP Pulse Ox 05/13/21 12:15 36.4 C L 82 19 154/76 H 94 05/13/21 08:21 36.6 C 84 18 158/75 H 96 05/13/21 03:58 36.3 C L 89 18 153/75 H 97 PG Care Time/CCT Total # of Minutes Spent Total Time Spent with Patient: Total time spent is greater than 50% in coordination of care (as documented) at patient's floor/unit and/or counseling patient: Coding Level of Care Code 59779 Subseq Hosp Care Lvl 3 Diagnoses Bacteremia R78.81 Cervical spine fracture S12.9XXA Elevated troponin R77.8 Rheumatoid arthritis M06.9 Atrial flutter I48.92 Atrial flutter type: unspecified Hypertension I10 Restless leg syndrome G25.81 BPH (benign prostatic hyperplasia) N40.0 Lower urinary tract symptom presence: symptoms absent DVT prophylaxis Z29.9 (1) BPH (benign prostatic hyperplasia) Lower urinary tract symptom presence: symptoms absent Qualified Code(s): N40.0 - Benign prostatic hyperplasia without lower urinary tract symptoms (2) Atrial flutter Atrial flutter type: unspecified Qualified Code(s): I48.92 - Unspecified atrial flutter
--- NOTE | 2021-05-13 16:52 | Cardiology Progress Note ---
Date of Service May 13, 2021 Assessment & Plan (1) Elevated troponin: (2) Cardiomyopathy: (3) Atrial flutter: (4) Bacteremia: (5) Hypertension: ASSESSMENT/PLAN: 1. Elevated troponin: He did not present with acute coronary syndrome. He has wall motion abnormality noted on echocardiogram but LV systolic function has improved compared to transesophageal echo on 02/02/2020. Given regional wall motion abnormalities, would recommend risk factor modification for CAD including high-intensity statin therapy, aspirin 81 mg daily if no contraindication, and beta-lois. 2. Cardiomyopathy: Head severely reduced LV systolic function in 2020 thought to be due to tachycardia in the setting of atrial flutter. LV systolic function has improved. Carvedilol resumed at lower dose than he had been on in the past. Can increase carvedilol to 6.25 mg twice daily. He has edema but otherwise denies any symptoms of CHF. Would try to maintain relatively even fluid balance. Given regional wall motion abnormalities, would treat for presumed CAD. Start statin. 3. Atrial flutter: Underwent cardioversion in 2019. Sinus rhythm currently. Carvedilol was resumed on 05/12/2021 and recommend titration as above. He had been on carvedilol 12.5 mg twice daily according to PCP note in November of 2020. He also had been on amiodarone but unclear why he is no longer taking this. Can continue anticoagulation for stroke risk reduction if no contraindications. 4. Bacteremia: Treatment as per primary service. Would avoid transesophageal echo at this point given his cervical fracture. 5. Hypertension: Blood pressure elevated. Titrate carvedilol. He had been on amlodipine in the past as well. Consider GREGG-inhibitor if further treatment is necessary. 6. Edema: He denies any heart failure symptoms. Difficult to know his true intravascular volume status. Hypoalbuminemia may be playing a role as well as venous insufficiency as he sits with his legs down pretty consistently as he is wheelchair bound and also sleeps in his wheelchair. Edema has improved. 7. Disposition: Call with any other questions or concerns. Admission and Anticipated Discharge Date Admission Date: May 12, 2021 Subjective Patient was seen earlier today. He denies chest pain, shortness of breath, syncope, near-syncope, palpitations, or edema. He stated that his neck pain had improved. He was alone in his hospital room. Review of systems: As above. Physical Exam Physical Exam: Gen.: No acute distress. Alert and oriented. HEENT: Anicteric sclera. Neck: Neck in a collar. Could not assess for JVD. Cardiac: Regular. Normal S1-S2. 1/6 systolic murmur. No rubs or gallops. Pulmonary: Clear to auscultation bilaterally without wheezes, rales, or rhonchi. Abdomen: Soft, nontender, nondistended, with normoactive bowel sounds. No bruits noted. Extremities: 2+ radial pulses bilaterally. 1+ lower extremity edema 1/3 to the knees. No cyanosis. Psychiatric: Affect appears appropriate. Results & Data ([facility]) Vital Signs (Past 12 Hours) Vital Signs Temp Pulse Resp BP Pulse Ox 05/13/21 15:13 36.6 C 75 20 166/79 H 98 05/13/21 12:15 36.4 C L 82 19 154/76 H 94 05/13/21 08:21 36.6 C 84 18 158/75 H 96 Laboratory Results Laboratory Results - last 24 hr 05/12/21 05/13/21 05/13/21 05:20 06:39 06:39 WBC RBC Hgb Hct MCV MCH MCHC RDW Std Deviation RDW Coeff of Jayjay Plt Count MPV Immature Gran % (Auto) Neut % (Auto) Lymph % (Auto) [place] % (Auto) Eos % (Auto) Baso % (Auto) Neut # (Auto) Lymph # (Auto) [place] # (Auto) Eos # (Auto) Baso # (Auto) Immature Gran # (Auto) ESR 109 H Sodium 132 L Potassium 4.5 Chloride 103 Carbon Dioxide 25 Anion Gap 4.0 BUN 20 H Creatinine 0.57 L Est Cr Clr Drug Dosing 131.6 Est GFR ( Amer) 124.0 Est GFR (Non-Af Amer) 107.0 BUN/Creatinine Ratio 35.0 H Glucose 141 H Estimat Average Glucose 100 Hemoglobin A1c 5.1 Calcium 8.2 L Total Bilirubin 0.4 D AST 18 ALT 22 Alkaline Phosphatase 106 C-Reactive Protein 17.00 H Total Protein 5.8 L Albumin 1.7 L Globulin 4.1 H Albumin/Globulin Ratio 0.4 L Vancomycin Trough 05/13/21 05/13/21 06:39 11:38 WBC 15.98 H RBC 3.88 L Hgb 9.7 L Hct 30.7 L MCV 79.1 L MCH 25.0 MCHC 31.6 L RDW Std Deviation 55.4 H RDW Coeff of Jayjay 19.0 H Plt Count 332 MPV 9.5 Immature Gran % (Auto) 0.2 Neut % (Auto) 92.5 Lymph % (Auto) 3.8 [place] % (Auto) 3.4 Eos % (Auto) 0.0 Baso % (Auto) 0.1 Neut # (Auto) 14.79 H Lymph # (Auto) 0.60 L [place] # (Auto) 0.55 Eos # (Auto) 0.00 Baso # (Auto) 0.01 Immature Gran # (Auto) 0.03 H ESR Sodium Potassium Chloride Carbon Dioxide Anion Gap BUN Creatinine Est Cr Clr Drug Dosing Est GFR ( Amer) Est GFR (Non-Af Amer) BUN/Creatinine Ratio Glucose Estimat Average Glucose Hemoglobin A1c Calcium Total Bilirubin AST ALT Alkaline Phosphatase C-Reactive Protein Total Protein Albumin Globulin Albumin/Globulin Ratio Vancomycin Trough 17.2 Diagnostic Findings Telemetry personally reviewed: Sinus rhythm. No arrhythmia. Medications Administered Current Inpatient Medications Acetaminophen (Acetaminophen 325 Mg Tab) 650 mg PO Q4H PRN PRN Reason: Pain or Fever Stop: 06/11/21 03:17 Apixaban (Apixaban 5 Mg Tablet) 5 mg PO BID [facility] Stop: 06/11/21 20:59 Last Admin: 05/13/21 08:33 Dose: 5 mg Documented by: Aspirin (Aspirin 81 Mg Ectab) 81 mg PO QAM [facility] Stop: 06/11/21 15:44 Last Admin: 05/13/21 08:33 Dose: 81 mg Documented by: Baclofen (Baclofen 10 Mg Tab) 10 mg PO QID PRN PRN Reason: Muscle Spasm Stop: 06/11/21 08:59 Last Admin: 05/12/21 12:15 Dose: 10 mg Documented by: Carvedilol (Carvedilol 3.125 Mg Tab) 3.125 mg PO BID [facility] Stop: 06/11/21 20:59 Last Admin: 05/13/21 08:33 Dose: 3.125 mg Documented by: Hydrocortisone Sodium (Succinate 100 mg/ Syringe) 2 mls @ 4 mls/min IV Q8H [facility] Stop: 06/11/21 03:59 Last Admin: 05/13/21 12:25 Dose: 4 mls/min Documented by: Vancomycin HCl 1,000 mg/ (Sodium Chloride) 270 mls @ 200 mls/hr IV Q8H [facility] Stop: 05/26/21 19:59 Last Infusion: 05/13/21 14:30 Dose: Infused Documented by: Miscellaneous Information (Vancomycin Consult Active) 1 ea N/A UD PRN PRN Reason: Consult Stop: 06/11/21 10:53 Morphine Sulfate (Morphine Sulfate 2 Mg/Ml Carp) 2 mg IV Q4H PRN PRN Reason: Moderate Pain Stop: 05/26/21 03:32 Morphine Sulfate (Morphine Sulfate 4 Mg/Ml 1 Ml Carp\Vial) 4 mg IV Q4H PRN PRN Reason: Severe Pain Stop: 05/26/21 03:32 Last Admin: 05/13/21 04:11 Dose: 4 mg Documented by: Naproxen (Naproxen 250 Mg Tab) 250 mg PO HS [facility] Stop: 06/11/21 20:59 Last Admin: 05/12/21 20:17 Dose: 250 mg Documented by: Ondansetron HCl (Ondansetron Inj 2 Mg/Ml 2 Ml Vial) 4 mg IV Q6H PRN PRN Reason: Nausea Stop: 06/11/21 03:17 Ropinirole HCl (Ropinirole Hcl 1 Mg Tablet) 1 mg PO HS [facility] Stop: 06/11/21 20:59 Last Admin: 05/12/21 20:15 Dose: 1 mg Documented by: Ropinirole HCl (Ropinirole Hcl 1 Mg Tablet) 2 mg PO DAILY PRN PRN Reason: leg spasms Stop: 06/11/21 16:14 Last Admin: 05/12/21 17:34 Dose: 2 mg Documented by: Terazosin HCl (Terazosin Hcl 1 Mg Cap) 2 mg PO HS [facility] Stop: 06/11/21 20:59 Last Admin: 05/12/21 20:15 Dose: 2 mg Documented by: Terazosin HCl (Terazosin Hcl 1 Mg Cap) 2 mg PO DAILY PRN PRN Reason: Bladder pain Stop: 06/13/21 08:59 Tramadol HCl (Tramadol Hcl 50 Mg Tablet) 50 mg PO Q4H PRN PRN Reason: Moderate Pain Stop: 06/11/21 03:23 Tramadol HCl (Tramadol Hcl 50 Mg Tablet) 100 mg PO Q4H PRN PRN Reason: Severe Pain Stop: 06/11/21 03:29 PG Care Time/CCT Total # of Minutes Spent Total Time Spent with Patient: Total time spent is greater than 50% in coordination of care (as documented) at patient's floor/unit and/or counseling patient: Coding Level of Care Code 57559 Subseq Hosp Care Lvl 3 Diagnoses Elevated troponin R77.8 Cardiomyopathy I42.9 Atrial flutter I48.92 Bacteremia R78.81 Hypertension I10
[2021-05-13] MEDS: rOPINIRole HCL 1 MG TABLET PO SCH (20:23)
[2021-05-13] MEDS: BACLOFEN 10 MG TAB PO PRN (20:23)
[2021-05-13] MEDS: TERAZOSIN HCL 1 MG CAP PO SCH (20:24)
[2021-05-13] MEDS: ATORVASTATIN 40 MG TAB PO SCH (20:24)
[2021-05-13] MEDS: carvediloL 6.25 MG TAB PO SCH (20:24)
[2021-05-13] MEDS: NAPROXEN 250 MG TAB PO SCH (20:27)
[2021-05-14] MEDS: VANCOMYCIN HCL 1,000 MG in SODIUM CHLORIDE 0.9% 250 ML IV SCH (04:39)
[2021-05-14] MEDS: HYDROCORTISONE SOD 100 MG in SYRINGE 0 ML IV SCH (04:39)
[2021-05-14] MEDS: MoRPHine SULFATE 4 MG/ML 1 ML CARP\\VIAL IV PRN ×2 (06:12→11:01)
[2021-05-14] MEDS: BACLOFEN 10 MG TAB PO PRN (06:12)
[2021-05-14 06:49] LABS: Hematocrit (blood only) 30.5 % (42-52); Hemoglobin 9.6 g/dL (14.0-18.0); Immature Granulocytes # (auto) 0.03 K/uL (0.00-0.02); Immature Granulocytes % (auto) 0.2 %; Lymphocytes # (auto) 0.84 K/uL (1.2-3.4); Lymphocytes % (auto) 6.3 %; Mean Corpuscular Hemoglobin 24.7 pg (25-34); Mean Corpuscular Hgb Conc 31.5 g/dL (32-36); Mean Corpuscular Volume 78.6 fL (80-100); Mean Platelet Volume 9.7 fL (7.4-10.4); Monocytes # (auto) 0.28 K/uL (0.11-0.59); Monocytes % (auto) 2.1 %; Neutrophils # (auto) 12.25 K/uL (1.4-6.5); Neutrophils % (auto) 91.4 %; Platelet Count 366 K/uL (130-400); RDW Coefficient of Variation 18.9 % (11.5-14.5); RDW Standard Deviation 55.1 fL (36.4-46.3); Red Blood Count 3.88 M/uL (4.7-6.1)
[2021-05-14 07:23] LABS: Albumin Level 1.8 gm/dl (3.4-5.0); BUN Creatinine Ratio 34.8 (10-20); Calcium 8.2 mg/dl (8.5-10.1); Creatinine Clr Calc Pharmacy 101.4 ml/min; Est GFR (African American) 111.4 ml/min; Est GFR (Non-African American) 96.1 ml/min; Magnesium 2.2 mg/dl (1.8-2.4); Potassium 4.6 mmol/L (3.5-5.1)
[2021-05-14 07:27] LABS: Albumin Globulin Ratio 0.5 (0.9-2); Bilirubin,Total 0.4 mg/dl (0.2-1); Total Protein 5.8 gm/dl (6.4-8.2)
[2021-05-14] MEDS: ASPIRIN 81 MG ECTAB PO SCH (09:15)
[2021-05-14] MEDS: APIXABAN 5 MG TABLET PO SCH ×2 (09:15→20:54)
[2021-05-14] MEDS: TERAZOSIN HCL 1 MG CAP PO PRN (09:18)
[2021-05-14] MEDS: carvediloL 6.25 MG TAB PO SCH ×2 (09:19→20:54)
[2021-05-14] MEDS: predniSONE 20 MG TAB PO SCH (09:44)
[2021-05-14] MEDS: ceFAZolin 2000MG 2,000 MG/15 ML SYR IV SCH ×2 (09:44→18:16)
[2021-05-14] MEDS: rOPINIRole HCL 1 MG TABLET PO PRN (11:43)
--- NOTE | 2021-05-14 16:20 | Hospitalist Progress Note ---
Date of Service May 14, 2021 Assessment & Plan (1) Bacteremia: 02/10 blood cultures from 05/11 growing MSSA. - Continued vancomycin until 05/14; switched to cefazolin - Repeat blood cultures from 05/13 also with growth. - Unclear source as only had a few small lacerations which are now healing. - TTE on 05/12 did not show any vegetations. ALE not possible due to his cervical fracture. - ID consult concur with current plan. - Will get x-ray of toe, though it appears healed and without infection at this time. (2) Cervical spine fracture: Seen by Dr. Hassan on 05/12. He is at risk of having cord damage if he were to fall. Dr. Hassan recommended outpatient follow-up at a tertiary care facility. - Continue soft collar for now (3) Elevated troponin: Troponins stable ~0.25. Echo on 05/12 showed EF 50 - 55%. Severe hypokinesis of inferolateral wall. Akinesis of basal inferior and basal inferoseptal wall segments. - Do NOT think this was ACS. Do not see evidence of a Type II IL (ie, no indication of EKG changes, no known acute change in heart function as seen on echo, no chest pain linked to cardiac cause) - Continue ASA (4) Rheumatoid arthritis: Severe disease. On etanercept (Enbrel) at home along with steroids, though per notes, he was tapering those. - Continue prednisone (5) Atrial flutter: Hx of atrial flutter with cardioversion in 2019. Presently in sinus rythm. - Continue beta-lois as above - Continue apixaban (6) Hypertension: BP today is 130/70. - Will monitor now that he's back on carvedilol and lisinopril (7) Restless leg syndrome: More bothersome while in bed in the hospital. - Continue standing ropinirole HS as well as daily PRN (8) BPH (benign prostatic hyperplasia): More bothersome while in bed. - Continue standing terazosin HS as well as daily PRN (9) DVT prophylaxis: On apixaban for hx of atrial flutter Admission and Anticipated Discharge Date Admission Date: May 12, 2021 Subjective Doing well today. Less concern about his terazosin and ropinirole today. No fevers overnight. Actually slept quite well per patient. Reports no fevers/chills, chest pain, shortness of breath, abdominal pain, nausea, or vomiting. Physical Exam Constitutional: WD/WN, vitals as above Eyes: EOM intact bilaterally; no conjunctival abnormality ENMT: external ear and nose normal, oropharynx normal Neck: trachea midline, no thyromegaly normal visual inspection Respiratory: normal respiratory effort, lungs clear to auscultation no respiratory distress Cardiovascular: RRR, no murmur, no edema Gastrointestinal (Abdomen): Inspection/Auscultation: abdomen normal to inspection; abdomen not distended Musculoskeletal: Extremities: + lower leg abnormality (Contractures) Skin: no rashes, warm and dry Neurologic: awake; + does not move all extremities Psychiatric: Orientation: alert, oriented to person and cooperative Results & Data Results & Data ([facility]) Vital Signs (Past 12 Hours) Vital Signs Temp Pulse Pulse Resp BP Pulse Ox 05/14/21 15:20 36.8 C 71 20 129/68 99 05/14/21 11:21 36.8 C 77 18 148/77 H 94 05/14/21 07:50 84 05/14/21 07:17 36.9 C 75 18 136/72 97 05/14/21 05:20 36.5 C 79 20 157/83 H 95 PG Care Time/CCT Total # of Minutes Spent Total Time Spent with Patient: Total time spent is greater than 50% in coordination of care (as documented) at patient's floor/unit and/or counseling patient: Coding Level of Care Code 68635 Subseq Hosp Care Lvl 3 Diagnoses Bacteremia R78.81 Cervical spine fracture S12.9XXA Elevated troponin R77.8 Rheumatoid arthritis M06.9 Atrial flutter I48.92 Atrial flutter type: unspecified Hypertension I10 Restless leg syndrome G25.81 BPH (benign prostatic hyperplasia) N40.0 Lower urinary tract symptom presence: symptoms absent DVT prophylaxis Z29.9 (1) Atrial flutter Atrial flutter type: unspecified Qualified Code(s): I48.92 - Unspecified atrial flutter (2) BPH (benign prostatic hyperplasia) Lower urinary tract symptom presence: symptoms absent Qualified Code(s): N40.0 - Benign prostatic hyperplasia without lower urinary tract symptoms
[2021-05-14] MEDS: ATORVASTATIN 40 MG TAB PO SCH (20:54)
[2021-05-14] MEDS: rOPINIRole HCL 1 MG TABLET PO SCH (20:56)
[2021-05-14] MEDS: NAPROXEN 250 MG TAB PO SCH (20:56)
[2021-05-14] MEDS: TERAZOSIN HCL 1 MG CAP PO SCH (20:56)
--- NOTE | 2021-05-14 22:11 | Cardiology Progress Note ---
Date of Service May 14, 2021 Assessment & Plan (1) Elevated troponin: (2) Cardiomyopathy: (3) Atrial flutter: (4) Bacteremia: (5) Hypertension: ASSESSMENT/PLAN: 1. Elevated troponin: He did not present with acute coronary syndrome. He has wall motion abnormality noted on echocardiogram but LV systolic function has improved compared to transesophageal echo on 02/02/2020. Given regional wall motion abnormalities, would recommend risk factor modification for CAD including high-intensity statin therapy and beta-lois. 2. Cardiomyopathy: Head severely reduced LV systolic function in 2020 thought to be due to tachycardia in the setting of atrial flutter. LV systolic function has improved. Carvedilol resumed during this hospital stay. Carvedilol has been increased and can be further titrated as necessary. He has edema but otherwise denies any symptoms of CHF. Would try to maintain relatively even fluid balance. Given regional wall motion abnormalities, would treat for presumed CAD. Statin therapy has been initiated. 3. Atrial flutter: Underwent cardioversion in 2019. Sinus rhythm currently. Carvedilol was resumed on 05/12/2021 and can titrate over time as necessary. He had been on carvedilol 12.5 mg twice daily according to PCP note in November of 2020. He stopped taking amiodarone on his own accord. Can continue anticoagulation for stroke risk reduction if no contraindications. 4. Bacteremia: Treatment as per primary service and ID. Would avoid transesophageal echo at this point given his cervical fracture. 5. Hypertension: Blood pressure has intermittently been normotensive. Will initiate low-dose GREGG-inhibitor. 6. Edema: He denies any heart failure symptoms. Difficult to know his true intravascular volume status. Hypoalbuminemia may be playing a role as well as venous insufficiency as he sits with his legs down pretty consistently as he is wheelchair bound and also sleeps in his wheelchair. Edema has improved. 7. Disposition: Call with any other questions or concerns. Cardiology will continue to follow. Admission and Anticipated Discharge Date Admission Date: May 12, 2021 Subjective Patient was seen earlier today. He was much more awake today. He denies chest pain, shortness of breath, syncope, near-syncope, palpitations, or edema. His neck and shoulder pain have improved. Infectious Disease has performed a tele health consultation and has recommended 6 weeks of antibiotics. Review of systems: As above. Physical Exam Physical Exam: Gen.: No acute distress. Alert and oriented. HEENT: Anicteric sclera. Neck: Neck in a collar. Could not assess for JVD. Cardiac: Regular. Normal S1-S2. 1/6 systolic murmur. No rubs or gallops. Pulmonary: Clear to auscultation bilaterally without wheezes, rales, or rhonchi. Abdomen: Soft, nontender, nondistended, with normoactive bowel sounds. No bruits noted. Extremities: 2+ radial pulses bilaterally. Trace lower extremity edema. No cyanosis. Psychiatric: Affect appears appropriate. Results & Data ([facility]) Vital Signs (Past 12 Hours) Vital Signs Temp Pulse Pulse Resp BP BP Pulse Ox 05/14/21 20:50 36.4 C L 76 18 159/79 H 96 05/14/21 17:11 70 05/14/21 15:20 36.8 C 71 20 129/68 99 05/14/21 11:21 36.8 C 77 18 148/77 H 94 Laboratory Results Laboratory Results - last 24 hr 05/14/21 05/14/21 06:23 06:23 WBC 13.40 H RBC 3.88 L Hgb 9.6 L Hct 30.5 L MCV 78.6 L MCH 24.7 L MCHC 31.5 L RDW Std Deviation 55.1 H RDW Coeff of Jayjay 18.9 H Plt Count 366 MPV 9.7 Immature Gran % (Auto) 0.2 Neut % (Auto) 91.4 Lymph % (Auto) 6.3 [place] % (Auto) 2.1 Eos % (Auto) 0.0 Baso % (Auto) 0.0 Neut # (Auto) 12.25 H Lymph # (Auto) 0.84 L [place] # (Auto) 0.28 Eos # (Auto) 0.00 Baso # (Auto) 0.00 Immature Gran # (Auto) 0.03 H Sodium 133 L Potassium 4.6 Chloride 105 Carbon Dioxide 22 Anion Gap 6.0 BUN 26 H Creatinine 0.74 Est Cr Clr Drug Dosing 101.4 Est GFR ( Amer) 111.4 Est GFR (Non-Af Amer) 96.1 BUN/Creatinine Ratio 34.8 H Glucose 175 H Calcium 8.2 L Magnesium 2.2 Total Bilirubin 0.4 AST 52 H ALT 72 Alkaline Phosphatase 97 Total Protein 5.8 L Albumin 1.8 L Globulin 4.0 Albumin/Globulin Ratio 0.5 L Diagnostic Findings Telemetry personally reviewed: Sinus rhythm. Id consult reviewed. Medications Administered Current Inpatient Medications Acetaminophen (Acetaminophen 325 Mg Tab) 650 mg PO Q4H PRN PRN Reason: Pain or Fever Stop: 06/11/21 03:17 Apixaban (Apixaban 5 Mg Tablet) 5 mg PO BID [facility] Stop: 06/11/21 20:59 Last Admin: 05/14/21 20:54 Dose: 5 mg Documented by: Aspirin (Aspirin 81 Mg Ectab) 81 mg PO QAM [facility] Stop: 06/11/21 15:44 Last Admin: 05/14/21 09:15 Dose: 81 mg Documented by: Atorvastatin Calcium (Atorvastatin 40 Mg Tab) 40 mg PO HS [facility] Stop: 06/12/21 20:59 Last Admin: 05/14/21 20:54 Dose: 40 mg Documented by: Baclofen (Baclofen 10 Mg Tab) 10 mg PO QID PRN PRN Reason: Muscle Spasm Stop: 06/11/21 08:59 Last Admin: 05/14/21 06:12 Dose: 10 mg Documented by: Carvedilol (Carvedilol 6.25 Mg Tab) 6.25 mg PO BID [facility] Stop: 06/12/21 20:59 Last Admin: 05/14/21 20:54 Dose: 6.25 mg Documented by: Cefazolin Sodium (Ancef 2000mg) 2,000 mg in 15 mls @ 3.75 mls/min IV Q8H [facility]; P rotocol Stop: 05/28/21 09:59 Last Admin: 05/14/21 18:16 Dose: 3.75 mls/min Documented by: Morphine Sulfate (Morphine Sulfate 2 Mg/Ml Carp) 2 mg IV Q4H PRN PRN Reason: Moderate Pain Stop: 05/26/21 03:32 Morphine Sulfate (Morphine Sulfate 4 Mg/Ml 1 Ml Carp\Vial) 4 mg IV Q4H PRN PRN Reason: Severe Pain Stop: 05/26/21 03:32 Last Admin: 05/14/21 11:01 Dose: 4 mg Documented by: Naproxen (Naproxen 250 Mg Tab) 250 mg PO HS [facility] Stop: 06/11/21 20:59 Last Admin: 05/14/21 20:56 Dose: 250 mg Documented by: Ondansetron HCl (Ondansetron Inj 2 Mg/Ml 2 Ml Vial) 4 mg IV Q6H PRN PRN Reason: Nausea Stop: 06/11/21 03:17 Prednisone (Prednisone 20 Mg Tab) 20 mg PO [facility] Stop: 06/13/21 08:59 Last Admin: 05/14/21 09:44 Dose: 20 mg Documented by: Ropinirole HCl (Ropinirole Hcl 1 Mg Tablet) 1 mg PO [facility] Stop: 06/11/21 20:59 Last Admin: 05/14/21 20:56 Dose: 1 mg Documented by: Ropinirole HCl (Ropinirole Hcl 1 Mg Tablet) 2 mg PO DAILY PRN PRN Reason: leg spasms Stop: 06/11/21 16:14 Last Admin: 05/14/21 11:43 Dose: 2 mg Documented by: Terazosin HCl (Terazosin Hcl 1 Mg Cap) 2 mg PO [facility] Stop: 06/11/21 20:59 Last Admin: 05/14/21 20:56 Dose: 2 mg Documented by: Terazosin HCl (Terazosin Hcl 1 Mg Cap) 2 mg PO DAILY PRN PRN Reason: Bladder pain Stop: 06/13/21 08:59 Last Admin: 05/14/21 09:18 Dose: 2 mg Documented by: Tramadol HCl (Tramadol Hcl 50 Mg Tablet) 50 mg PO Q4H PRN PRN Reason: Moderate Pain Stop: 06/11/21 03:23 Tramadol HCl (Tramadol Hcl 50 Mg Tablet) 100 mg PO Q4H PRN PRN Reason: Severe Pain Stop: 06/11/21 03:29 PG Care Time/CCT Total # of Minutes Spent Total Time Spent with Patient: Total time spent is greater than 50% in coordi nation of care (as documented) at patient's floor/unit and/or counseling patient: Coding Level of Care Code 67783 Subseq Hosp Care Lvl 3 Diagnoses Elevated troponin R77.8 Cardiomyopathy I42.9 Atrial flutter I48.92 Bacteremia R78.81 Hypertension I10
[2021-05-15] MEDS: ceFAZolin 2000MG 2,000 MG/15 ML SYR IV SCH ×3 (02:08→18:19)
[2021-05-15] MEDS: MoRPHine SULFATE 2 MG/ML CARP IV PRN ×2 (02:37→09:08)
[2021-05-15] MEDS: TERAZOSIN HCL 1 MG CAP PO PRN (02:41)
[2021-05-15 09:06] LABS: Hematocrit (blood only) 32.4 % (42-52); Hemoglobin 10.4 g/dL (14.0-18.0); Mean Corpuscular Hemoglobin 25.2 pg (25-34); Mean Corpuscular Hgb Conc 32.1 g/dL (32-36); Mean Corpuscular Volume 78.6 fL (80-100); Mean Platelet Volume 9.5 fL (7.4-10.4); Platelet Count 340 K/uL (130-400); RDW Coefficient of Variation 18.8 % (11.5-14.5); RDW Standard Deviation 54.6 fL (36.4-46.3); Red Blood Count 4.12 M/uL (4.7-6.1); White Blood Count 9.38 K/uL (4.8-10.8)
[2021-05-15] MEDS: carvediloL 6.25 MG TAB PO SCH ×2 (09:07→20:50)
[2021-05-15] MEDS: APIXABAN 5 MG TABLET PO SCH ×2 (09:07→20:51)
[2021-05-15] MEDS: predniSONE 20 MG TAB PO SCH (09:07)
[2021-05-15] MEDS: lisinopril 5 MG TAB PO SCH (09:07)
[2021-05-15] MEDS: rOPINIRole HCL 1 MG TABLET PO PRN (09:08)
[2021-05-15 09:50] LABS: Albumin Globulin Ratio 0.5 (0.9-2); Albumin Level 1.9 gm/dl (3.4-5.0); BUN Creatinine Ratio 36.4 (10-20); Bilirubin,Total 0.4 mg/dl (0.2-1); Calcium 8.2 mg/dl (8.5-10.1); Creatinine Clr Calc Pharmacy 98.7 ml/min; Est GFR (African American) 110.2 ml/min; Est GFR (Non-African American) 95.1 ml/min; Magnesium 2.2 mg/dl (1.8-2.4); Potassium 3.9 mmol/L (3.5-5.1); Total Protein 5.9 gm/dl (6.4-8.2)
[2021-05-15] MEDS: traMADol HCL 50 MG TABLET PO PRN ×2 (10:22→21:30)
--- NOTE | 2021-05-15 14:07 | Hospitalist Progress Note ---
Date of Service May 15, 2021 Assessment & Plan (1) Bacteremia: 4/ blood cultures from 05/11 growing MSSA. - Continued vancomycin until 05/14; switched to cefazolin - Repeat blood cultures from 05/13 also with MSSA. - Repeated blood cultures on 05/15. - Unclear source as only had a few small lacerations which are now healing. - TTE on 05/12 did not show any vegetations. ALE not possible due to his cervical fracture. - ID consult concur with current plan. - Will defer x-ray of toe, as it appears healed and without infection at this time. Plan for PICC on 05/17 if no growth in most recent set. (2) Cervical spine fracture: Seen by Dr. Hassan on 05/12. He is at risk of having cord damage if he were to fall. Dr. Hassan recommended outpatient follow-up at a tertiary care facility. - Continue soft collar for now (3) Elevated troponin: Troponins stable ~0.25. Echo on 05/12 showed EF 50 - 55%. Severe hypokinesis of inferolateral wall. Akinesis of basal inferior and basal inferoseptal wall segments. - Do NOT think this was ACS. Do not see evidence of a Type II [place] (ie, no indication of EKG changes, no known acute change in heart function as seen on echo, no chest pain linked to cardiac cause) - Continue ASA (4) Rheumatoid arthritis: Severe disease. On etanercept (Enbrel) at home along with steroids, though per notes, he was tapering those. - Continue prednisone (5) Atrial flutter: Hx of atrial flutter with cardioversion in 2019. Presently still in sinus rhythm. - Continue beta-lois as above - Continue apixaban (6) Hypertension: BP today is 130/55. - Will monitor now that he's back on carvedilol and lisinopril (7) Restless leg syndrome: More bothersome while in bed in the hospital. - Continue standing ropinirole HS as well as daily PRN (increased to 2 mg in evening standing as this is what he takes at home.) (8) BPH (benign prostatic hyperplasia): More bothersome while in bed. - Continue standing terazosin HS as well as daily PRN (9) DVT prophylaxis: On apixaban for hx of atrial flutter Admission and Anticipated Discharge Date Admission Date: May 12, 2021 Subjective Doing well today. Had some trouble sleeping and also feels his pain is not as well controlled with the morphine. Reports no fevers/chills, chest pain, shortness of breath, abdominal pain, nausea, or vomiting. Physical Exam Constitutional: WD/WN, vitals as above Eyes: EOM intact bilaterally; no conjunctival abnormality ENMT: external ear and nose normal, oropharynx normal Neck: trachea midline, no thyromegaly normal visual inspection Respiratory: normal respiratory effort, lungs clear to auscultation no respiratory distress Cardiovascular: RRR, no murmur, no edema Gastrointestinal (Abdomen): Inspection/Auscultation: abdomen normal to inspection; abdomen not distended Musculoskeletal: Extremities: + lower leg abnormality (Contractures) Skin: no rashes, warm and dry Neurologic: awake; + does not move all extremities Psychiatric: Orientation: alert, oriented to person and cooperative Results & Data Results & Data ([facility]) Vital Signs (Past 12 Hours) Vital Signs Temp Pulse Resp BP Pulse Ox 05/15/21 12:01 129/54 L 05/15/21 07:45 36.1 C L 72 16 154/78 H 96 05/15/21 02:38 69 159/71 H PG Care Time/CCT Total # of Minutes Spent Total Time Spent with Patient: Total time spent is greater than 50% in coordination of care (as documented) at patient's floor/unit and/or counseling patient: Coding Level of Care Code 51458 Subseq Hosp Care Lvl 3 Diagnoses Bacteremia R78.81 Cervical spine fracture S12.9XXA Elevated troponin R77.8 Rheumatoid arthritis M06.9 Atrial flutter I48.92 Atrial flutter type: unspecified Hypertension I10 Restless leg syndrome G25.81 BPH (benign prostatic hyperplasia) N40.0 Lower urinary tract symptom presence: symptoms absent DVT prophylaxis Z29.9 (1) Atrial flutter Atrial flutter type: unspecified Qualified Code(s): I48.92 - Unspecified atrial flutter (2) BPH (benign prostatic hyperplasia) Lower urinary tract symptom presence: symptoms absent Qualified Code(s): N40.0 - Benign prostatic hyperplasia without lower urinary tract symptoms
[2021-05-15] MEDS: ATORVASTATIN 40 MG TAB PO SCH (20:48)
[2021-05-15] MEDS: TERAZOSIN HCL 1 MG CAP PO SCH (20:48)
[2021-05-15] MEDS: rOPINIRole HCL 1 MG TABLET PO SCH (20:48)
[2021-05-15] MEDS: NAPROXEN 250 MG TAB PO SCH (20:50)
[2021-05-16] MEDS: ceFAZolin 2000MG 2,000 MG/15 ML SYR IV SCH ×3 (02:17→17:29)
[2021-05-16] MEDS: carvediloL 6.25 MG TAB PO SCH ×2 (08:38→20:16)
[2021-05-16] MEDS: predniSONE 20 MG TAB PO SCH (08:38)
[2021-05-16] MEDS: APIXABAN 5 MG TABLET PO SCH ×2 (08:38→20:16)
[2021-05-16] MEDS: lisinopril 5 MG TAB PO SCH (08:38)
[2021-05-16 08:41] LABS: Hematocrit (blood only) 31.4 % (42-52); Hemoglobin 9.9 g/dL (14.0-18.0); Mean Corpuscular Hemoglobin 24.6 pg (25-34); Mean Corpuscular Hgb Conc 31.5 g/dL (32-36); Mean Corpuscular Volume 77.9 fL (80-100); Mean Platelet Volume 9.5 fL (7.4-10.4); Platelet Count 322 K/uL (130-400); RDW Coefficient of Variation 18.8 % (11.5-14.5); RDW Standard Deviation 54.1 fL (36.4-46.3); Red Blood Count 4.03 M/uL (4.7-6.1); White Blood Count 6.94 K/uL (4.8-10.8)
[2021-05-16] MEDS: traMADol HCL 50 MG TABLET PO PRN ×2 (08:46→18:52)
[2021-05-16 09:14] LABS: Albumin Level 1.8 gm/dl (3.4-5.0); Calcium 7.9 mg/dl (8.5-10.1); Creatinine Clr Calc Pharmacy 117.2 ml/min; Est GFR (African American) 118.3 ml/min; Magnesium 2.2 mg/dl (1.8-2.4); Potassium 3.9 mmol/L (3.5-5.1)
[2021-05-16 09:17] LABS: Albumin Globulin Ratio 0.5 (0.9-2); Bilirubin,Total 0.3 mg/dl (0.2-1); Globulin 3.6 gm/dl (2.5-4.0); Phosphorus 2.7 mg/dl (2.5-4.9); Total Protein 5.4 gm/dl (6.4-8.2)
[2021-05-16] MEDS: rOPINIRole HCL 1 MG TABLET PO PRN (09:47)
[2021-05-16] MEDS: TERAZOSIN HCL 1 MG CAP PO PRN (09:49)
[2021-05-16] MEDS: MoRPHine SULFATE 4 MG/ML 1 ML CARP\\VIAL IV PRN (11:38)
--- NOTE | 2021-05-16 16:25 | Hospitalist Progress Note ---
Date of Service May 16, 2021 Assessment & Plan (1) Bacteremia: / blood cultures from 05/11 growing MSSA. - Continued vancomycin until 05/14; switched to cefazolin - Repeat blood cultures from 05/13 also with MSSA. - Repeated blood cultures on 05/15. - Unclear source as only had a few small lacerations which are now healing. - TTE on 05/12 did not show any vegetations. ALE not possible due to his cervical fracture. - ID consult concur with current plan. - Will defer x-ray of toe, as it appears healed and without infection at this time. If no growth, will get PICC tomorrow. (2) Cervical spine fracture: Seen by Dr. Hassan on 05/12. He is at risk of having cord damage if he were to fall. Dr. Hassan recommended outpatient follow-up at a tertiary care facility. - Continue soft collar for now (3) Elevated troponin: Troponins stable ~0.25. Echo on 05/12 showed EF 50 - 55%. Severe hypokinesis of inferolateral wall. Akinesis of basal inferior and basal inferoseptal wall segments. - Do NOT think this was ACS. Do not see evidence of a Type II [place] (ie, no indication of EKG changes, no known acute change in heart function as seen on echo, no chest pain linked to cardiac cause) - Continue ASA (4) Rheumatoid arthritis: Severe disease. On etanercept (Enbrel) at home along with steroids, though per notes, he was tapering those. - Continue prednisone (5) Atrial flutter: Hx of atrial flutter with cardioversion in 2019. Presently still in sinus rhythm. - Continue beta-lois as above - Continue apixaban (6) Hypertension: BP today is 155/70. - Continue above meds. (7) Restless leg syndrome: More bothersome while in bed in the hospital. - Continue standing ropinirole HS as well as daily PRN (increased to 2 mg in evening standing as this is what he takes at home.) (8) BPH (benign prostatic hyperplasia): More bothersome while in bed. - Continue standing terazosin HS as well as daily PRN (9) DVT prophylaxis: On apixaban for hx of atrial flutter Admission and Anticipated Discharge Date Admission Date: May 12, 2021 Subjective Doing well. Reports no fevers/chills, chest pain, shortness of breath, abdominal pain, nausea, or vomiting. Physical Exam Constitutional: WD/WN, vitals as above Eyes: EOM intact bilaterally; no conjunctival abnormality ENMT: external ear and nose normal, oropharynx normal Neck: trachea midline, no thyromegaly normal visual inspection Respiratory: normal respiratory effort, lungs clear to auscultation no respiratory distress Cardiovascular: RRR, no murmur, no edema Gastrointestinal (Abdomen): Inspection/Auscultation: abdomen normal to inspection; abdomen not distended Musculoskeletal: Extremities: + lower leg abnormality (Contractures) Skin: no rashes, warm and dry Neurologic: awake; + does not move all extremities Psychiatric: Orientation: alert, oriented to person and cooperative Results & Data Results & Data ([facility]) Vital Signs (Past 12 Hours) Vital Signs Temp Pulse Resp BP Pulse Ox 05/16/21 08:17 36.4 C L 63 20 155/71 H 98 PG Care Time/CCT Total # of Minutes Spent Total Time Spent with Patient: Total time spent is greater than 50% in coordination of care (as documented) at patient's floor/unit and/or counseling patient: Coding Level of Care Code 68162 Subseq Hosp Care Lvl 2 Diagnoses Bacteremia R78.81 Cervical spine fracture S12.9XXA Elevated troponin R77.8 Rheumatoid arthritis M06.9 Atrial flutter I48.92 Atrial flutter type: unspecified Hypertension I10 Restless leg syndrome G25.81 BPH (benign prostatic hyperplasia) N40.0 Lower urinary tract symptom presence: symptoms absent DVT prophylaxis Z29.9 (1) Atrial flutter Atrial flutter type: unspecified Qualified Code(s): I48.92 - Unspecified atrial flutter (2) BPH (benign prostatic hyperplasia) Lower urinary tract symptom presence: symptoms absent Qualified Code(s): N40.0 - Benign prostatic hyperplasia without lower urinary tract symptoms
--- NOTE | 2021-05-16 18:31 | Cardiology Progress Note ---
Date of Service May 16, 2021 Assessment & Plan (1) Elevated troponin: (2) Cardiomyopathy: (3) Atrial flutter: (4) Bacteremia: (5) Hypertension: ASSESSMENT/PLAN: 1. Elevated troponin: He did not present with acute coronary syndrome. He has wall motion abnormality noted on echocardiogram but LV systolic function has improved compared to transesophageal echo on 02/02/2020. Given regional wall motion abnormalities, would recommend risk factor modification for CAD including high-intensity statin therapy and beta-lois. 2. Cardiomyopathy: Had severely reduced LV systolic function in 2019 thought to be due to tachycardia in the setting of atrial flutter. LV systolic function has improved. Carvedilol resumed during this hospital stay. Further titration of carvedilol was not performed at this time as his heart rate has been 60s with a low of upper 50s as per recorded vitals. He has edema but otherwise denies any symptoms of CHF. Would try to maintain relatively even fluid balance. Given regional wall motion abnormalities, would treat for presumed CAD. Statin therapy has been initiated. 3. Atrial flutter: Underwent cardioversion in 2019. Sinus rhythm currently. Carvedilol was resumed on 05/12/2021 and can titrate over time as appropriate. He had been on carvedilol 12.5 mg twice daily according to PCP note in November of 2020. He stopped taking amiodarone on his own accord. On anticoagulation for stroke risk reduction. 4. Bacteremia: Treatment as per primary service and ID. Would avoid transesophageal echo at this point given his cervical fracture. 5. Hypertension: Blood pressure normotensive to mildly hypertensive the past 2 days. No changes made today but if blood pressure remains more elevated, would recommend titration of GREGG-inhibitor. 6. Edema: He denies any heart failure symptoms. Difficult to know his true intravascular volume status. Hypoalbuminemia may be playing a role as well as venous insufficiency as he sits with his legs down pretty consistently as he is wheelchair bound and also sleeps in his wheelchair. Edema has improved while in bed. 7. Disposition: Call with any other questions or concerns. Cardiology will sign off at this time. He would like to follow-up in the cardiology office. Cardiology office will arrange follow-up appointment. Patient care communicated with Dr. Alves of the primary hospitalist service. Admission and Anticipated Discharge Date Admission Date: May 12, 2021 Subjective He denies chest pain, shortness of breath, syncope, near-syncope, palpitations, or bleeding. He did have questions about his PICC line which has been recommended for antibiotic administration given bacteremia. This was answered to the best of my ability. Review of systems: As above. Physical Exam Physical Exam: Gen.: No acute distress. Alert and oriented. HEENT: Anicteric sclera. Neck: Thick neck. Neck collar had been removed by patient. No obvious JVD. Cardiac: Regular. Normal S1-S2. 1/6 systolic murmur. No rubs or gallops. Pulmonary: Clear to auscultation bilaterally without wheezes, rales, or rhonchi. Abdomen: Soft, nontender, nondistended, with normoactive bowel sounds. No bruits noted. Extremities: 2+ radial pulses bilaterally. Trace oral bilateral lower extremity edema. No cyanosis. Psychiatric: Affect appears appropriate. Results & Data ([facility]) Vital Signs (Past 12 Hours) Vital Signs Temp Pulse Resp BP BP Pulse Ox 05/16/21 17:10 36.5 C 61 18 147/62 H 99 05/16/21 08:17 36.4 C L 63 20 155/71 H 98 Laboratory Results Laboratory Results - last 24 hr 05/16/21 05/16/21 08:05 08:05 WBC 6.94 RBC 4.03 L Hgb 9.9 L Hct 31.4 L MCV 77.9 L MCH 24.6 L MCHC 31.5 L RDW Std Deviation 54.1 H RDW Coeff of Jayjay 18.8 H Plt Count 322 MPV 9.5 Sodium 135 L Potassium 3.9 Chloride 103 Carbon Dioxide 25 Anion Gap 7.0 BUN 25 H Creatinine 0.64 Est Cr Clr Drug Dosing 117.2 Est GFR ( Amer) 118.3 Est GFR (Non-Af Amer) 102.0 BUN/Creatinine Ratio 39.0 H Glucose 111 H Calcium 7.9 L Phosphorus 2.7 Magnesium 2.2 Total Bilirubin 0.3 AST 15 ALT 36 Alkaline Phosphatase 77 Total Protein 5.4 L Albumin 1.8 L Globulin 3.6 Albumin/Globulin Ratio 0.5 L Medications Administered Current Inpatient Medications Acetaminophen (Acetaminophen 325 Mg Tab) 650 mg PO Q4H PRN PRN Reason: Pain or Fever Stop: 06/11/21 03:17 Apixaban (Apixaban 5 Mg Tablet) 5 mg PO BID [facility] Stop: 06/11/21 20:59 Last Admin: 05/16/21 08:38 Dose: 5 mg Documented by: Atorvastatin Calcium (Atorvastatin 40 Mg Tab) 40 mg PO [facility] Stop: 06/12/21 20:59 Last Admin: 05/15/21 20:48 Dose: 40 mg Documented by: Baclofen (Baclofen 10 Mg Tab) 10 mg PO QID PRN PRN Reason: Muscle Spasm Stop: 06/11/21 08:59 Last Admin: 05/14/21 06:12 Dose: 10 mg Documented by: Carvedilol (Carvedilol 6.25 Mg Tab) 6.25 mg PO BID [facility] Stop: 06/12/21 20:59 Last Admin: 05/16/21 08:38 Dose: 6.25 mg Documented by: Cefazolin Sodium (Ancef 2000mg) 2,000 mg in 15 mls @ 3.75 mls/min IV Q8H [facility]; Protocol Stop: 05/28/21 09:59 Last Admin: 05/16/21 17:29 Dose: 3.75 mls/min Documented by: Lisinopril (Lisinop[facility] 5 Mg Tab) [facility] Stop: 06/14/21 08:59 Last Admin: 05/16/21 08:38 Dose: 5 mg Documented by: Morphine Sulfate (Morphine Sulfate 2 Mg/Ml Carp) 2 mg IV Q4H PRN PRN Reason: Moderate Pain Stop: 05/26/21 03:32 Last Admin: 05/15/21 09:08 Dose: 2 mg Documented by: Morphine Sulfate (Morphine Sulfate 4 Mg/Ml 1 Ml Carp\Vial) 4 mg IV Q4H PRN PRN Reason: Severe Pain Stop: 05/26/21 03:32 Last Admin: 05/16/21 11:38 Dose: 4 mg Documented by: Naproxen (Naproxen 250 Mg Tab) 250 mg PO [facility] Stop: 06/11/21 20:59 Last Admin: 05/15/21 20:50 Dose: 250 mg Documented by: Ondansetron HCl (Ondansetron Inj 2 Mg/Ml 2 Ml Vial) 4 mg IV Q6H PRN PRN Reason: Nausea Stop: 06/11/21 03:17 Prednisone (Prednisone 20 Mg Tab) 20 mg PO QAM [facility] Stop: 06/13/21 08:59 Last Admin: 05/16/21 08:38 Dose: 20 mg Documented by: Ropinirole HCl (Ropinirole Hcl 1 Mg Tablet) 2 mg PO DAILY PRN PRN Reason: leg spasms Stop: 06/11/21 16:14 Last Admin: 05/16/21 09:47 Dose: 2 mg Documented by: Ropinirole HCl (Ropinirole Hcl 1 Mg Tablet) 2 mg PO [facility] Stop: 06/14/21 20:59 Last Admin: 05/15/21 20:48 Dose: 2 mg Documented by: Terazosin HCl (Terazosin Hcl 1 Mg Cap) 2 mg PO [facility] Stop: 06/11/21 20:59 Last Admin: 05/15/21 20:48 Dose: 2 mg Documented by: Terazosin HCl (Terazosin Hcl 1 Mg Cap) 2 mg PO DAILY PRN PRN Reason: Bladder pain Stop: 06/13/21 08:59 Last Admin: 05/16/21 09:49 Dose: 2 mg Documented by: Tramadol HCl (Tramadol Hcl 50 Mg Tablet) 50 mg PO Q4H PRN PRN Reason: Moderate Pain Stop: 06/11/21 03:23 Tramadol HCl (Tramadol Hcl 50 Mg Tablet) 100 mg PO Q4H PRN PRN Reason: Severe Pain Stop: 06/11/21 03:29 Last Admin: 05/16/21 08:46 Dose: 100 mg Documented by: PG Care Time/CCT Total # of Minutes Spent Total Time Spent with Patient: Total time spent is greater than 50% in coordination of care (as documented) at patient's floor/unit and/or counseling patient: Coding Level of Care Code 06158 Subseq Hosp Care Lvl 3 Diagnoses Elevated troponin R77.8 Cardiomyopathy I42.9 Atrial flutter I48.92 Bacteremia R78.81 Hypertension I10
[2021-05-16] MEDS: BACLOFEN 10 MG TAB PO PRN (19:18)
[2021-05-16] MEDS: ATORVASTATIN 40 MG TAB PO SCH (20:16)
[2021-05-16] MEDS: TERAZOSIN HCL 1 MG CAP PO SCH (20:16)
[2021-05-16] MEDS: rOPINIRole HCL 1 MG TABLET PO SCH (20:16)
[2021-05-16] MEDS: NAPROXEN 250 MG TAB PO SCH (20:16)
[2021-05-17] MEDS: ceFAZolin 2000MG 2,000 MG/15 ML SYR IV SCH ×4 (02:27→17:30)
[2021-05-17] MEDS: traMADol HCL 50 MG TABLET PO PRN (05:37)
[2021-05-17] MEDS: MoRPHine SULFATE 4 MG/ML 1 ML CARP\\VIAL IV PRN (06:37)
[2021-05-17 06:58] LABS: Hematocrit (blood only) 31.2 % (42-52); Hemoglobin 10.2 g/dL (14.0-18.0); Mean Corpuscular Hemoglobin 25.3 pg (25-34); Mean Corpuscular Hgb Conc 32.7 g/dL (32-36); Mean Corpuscular Volume 77.4 fL (80-100); Mean Platelet Volume 9.5 fL (7.4-10.4); Platelet Count 360 K/uL (130-400); RDW Coefficient of Variation 18.2 % (11.5-14.5); RDW Standard Deviation 51.8 fL (36.4-46.3); Red Blood Count 4.03 M/uL (4.7-6.1); White Blood Count 9.59 K/uL (4.8-10.8)
[2021-05-17 07:25] LABS: BUN Creatinine Ratio 30.5 (10-20); Calcium 8.2 mg/dl (8.5-10.1); Creatinine Clr Calc Pharmacy 110.3 ml/min; Est GFR (African American) 115.3 ml/min; Est GFR (Non-African American) 99.5 ml/min; Magnesium 2.1 mg/dl (1.8-2.4); Potassium 3.8 mmol/L (3.5-5.1)
[2021-05-17] MEDS: carvediloL 6.25 MG TAB PO SCH (08:40)
[2021-05-17] MEDS: APIXABAN 5 MG TABLET PO SCH (08:41)
[2021-05-17] MEDS: TERAZOSIN HCL 1 MG CAP PO PRN (08:41)
[2021-05-17] MEDS: lisinopril 5 MG TAB PO SCH (08:41)
[2021-05-17] MEDS: predniSONE 20 MG TAB PO SCH (08:41)
[2021-05-17] MEDS: BACLOFEN 10 MG TAB PO PRN (10:05)
--- NOTE | 2021-05-17 12:33 | Hospitalist Progress Note ---
Date of Service May 17, 2021 Assessment & Plan (1) Bacteremia: / blood cultures from 05/11 growing MSSA. - Continued vancomycin until 05/14; switched to cefazolin - Repeat blood cultures from 05/13 also with MSSA. - Repeated blood cultures on 05/15. - Unclear source as only had a few small lacerations which are now healing. - TTE on 05/12 did not show any vegetations. ALE not possible due to his cervical fracture. - ID consult concur with current plan. - PICC today. Plan for 6 weeks of abx given the concern for endocarditis without ability to r/o with ALE. (End date: 06/25/2021) (2) Cervical spine fracture: Seen by Dr. Hassan on 05/12. He is at risk of having cord damage if he were to fall. Dr. Hassan recommended outpatient follow-up at a tertiary care facility. - Continue soft collar for now (3) Elevated troponin: Troponins stable ~0.25. Echo on 05/12 showed EF 50 - 55%. Severe hypokinesis of inferolateral wall. Akinesis of basal inferior and basal inferoseptal wall segments. - Do NOT think this was ACS. Do not see evidence of a Type II [place] (ie, no indication of EKG changes, no known acute change in heart function as seen on echo, no chest pain linked to cardiac cause) - Continue ASA (4) Rheumatoid arthritis: Severe disease. On etanercept (Enbrel) at home along with steroids, though per notes, he was tapering those. - Continue prednisone (5) Atrial flutter: Hx of atrial flutter with cardioversion in 2019. Presently still in sinus rhythm. - Continue beta-lois as above - Continue apixaban (6) Hypertension: BP today is 135/70. - Continue above meds. (7) Restless leg syndrome: More bothersome while in bed in the hospital. - Continue standing ropinirole HS as well as daily PRN (increased to 2 mg in evening standing as this is what he takes at home.) (8) BPH (benign prostatic hyperplasia): More bothersome while in bed. - Continue standing terazosin HS as well as daily PRN (9) DVT prophylaxis: On apixaban for hx of atrial flutter Admission and Anticipated Discharge Date Admission Date: May 12, 2021 Subjective Well today. Had some pain, but now feeling comfortable. Reports no fevers/chills, chest pain, shortness of breath, abdominal pain, nausea, or vomiting. Physical Exam Constitutional: WD/WN, vitals as above Eyes: EOM intact bilaterally; no conjunctival abnormality ENMT: external ear and nose normal, oropharynx normal Neck: trachea midline, no thyromegaly normal visual inspection Respiratory: normal respiratory effort, lungs clear to auscultation no respiratory distress Cardiovascular: RRR, no murmur, no edema Gastrointestinal (Abdomen): Inspection/Auscultation: abdomen normal to inspection; abdomen not distended Musculoskeletal: Extremities: + lower leg abnormality (Contractures) Skin: no rashes, warm and dry Neurologic: awake; + does not move all extremities Psychiatric: Orientation: alert, oriented to person and cooperative Results & Data Results & Data ([facility]) Vital Signs (Past 12 Hours) Vital Signs Temp Pulse Resp BP Pulse Ox 05/17/21 07:10 36.5 C 64 16 136/67 97 PG Care Time/CCT Total # of Minutes Spent Total Time Spent with Patient: Total time spent is greater than 50% in coordination of care (as documented) at patient's floor/unit and/or counseling patient: Coding Level of Care Code 82349 Subseq Hosp Care Lvl 2 Diagnoses Bacteremia R78.81 Cervical spine fracture S12.9XXA Elevated troponin R77.8 Rheumatoid arthritis M06.9 Atrial flutter I48.92 Atrial flutter type: unspecified Hypertension I10 Restless leg syndrome G25.81 BPH (benign prostatic hyperplasia) N40.0 Lower urinary tract symptom presence: symptoms absent DVT prophylaxis Z29.9 (1) Atrial flutter Atrial flutter type: unspecified Qualified Code(s): I48.92 - Unspecified atrial flutter (2) BPH (benign prostatic hyperplasia) Lower urinary tract symptom presence: symptoms absent Qualified Code(s): N40.0 - Benign prostatic hyperplasia without lower urinary tract symptoms
[2021-05-17] MEDS ORDERED: POLYETHYLENE (MIRALAX) 17 GM PACK PO STA (12:38)
[2021-05-17] MEDS: rOPINIRole HCL 1 MG TABLET PO PRN (13:54)
--- NOTE | 2021-05-17 18:15 | Discharge Summary ---
Date of Service May 17, 2021 Admission HPI Per Admitting Provider The patient is a 67-year-old male with a past medical history including severe rheumatoid arthritis, wheelchair-bound, restless leg syndrome, BPH, chronic pain syndrome and chronic anticoagulation. He presents with symptoms as noted above. Principal Diagnosis MSSA bacteremia Elevated troponin Cervical fracture Discharge Exam Constitutional WD/WN, vitals as above Eyes EOM intact bilaterally; no conjunctival abnormality ENMT external ear and nose normal, oropharynx normal Neck trachea midline, no thyromegaly normal visual inspection Respiratory normal respiratory effort, lungs clear to auscultation no respiratory distress Cardiovascular RRR, no murmur, no edema Gastrointestinal (Abdomen) Inspection/Auscultation: abdomen normal to inspection; abdomen not distended Musculoskeletal Extremities: + lower leg abnormality (Contractures) Skin no rashes, warm and dry Neurologic awake; + does not move all extremities Psychiatric Orientation: alert, oriented to person and cooperative Discharge Data Allergies Allergy/AdvReac Type Severity Reaction Status Date / Time No Known Drug Allergies Allergy Unknown NONE Verified 05/12/21 12:16 Consultations 05/11/21 22:22 ED Decision to Admit Stat 05/12/21 03:18 Consult Cardiology Routine 05/12/21 03:29 Consult Orthopedic Surgery Routine 05/12/21 15:26 Consult Infectious Diseases Routine Ordered Studies 05/11/21 20:25 CT cervical spine wo con Stat CT head/brain wo con Stat 05/12/21 00:05 MR cervical spine wo con Urgent Hospital Course (1) Bacteremia: 4/ blood cultures from 05/11 growing MSSA. - Continued vancomycin until 05/14; switched to cefazolin - Repeat blood cultures from 05/13 also with MSSA. - Repeated blood cultures on 05/15. - Unclear source as only had a few small lacerations which are now healing. - TTE on 05/12 did not show any vegetations. ALE not possible due to his cervical fracture. - ID consult concur with current plan. - PICC today. Plan for 6 weeks of abx given the concern for endocarditis without ability to r/o with ALE. (End date: 06/25/2021) (2) Cervical spine fracture: Seen by Dr. Hassan on 05/12. He is at risk of having cord damage if he were to fall. Dr. Hassan recommended outpatient follow-up at a tertiary care facility. - Continue soft collar for now (3) Elevated troponin: Troponins stable ~0.25. Echo on 05/12 showed EF 50 - 55%. Severe hypokinesis of inferolateral wall. Akinesis of basal inferior and basal inferoseptal wall segments. - Do NOT think this was ACS. Do not see evidence of a Type II [place] (ie, no indication of EKG changes, no known acute change in heart function as seen on echo, no chest pain linked to cardiac cause) - Continue ASA (4) Rheumatoid arthritis: Severe disease. On etanercept (Enbrel) at home along with steroids, though per notes, he was tapering those. - Continue prednisone (5) Atrial flutter: Hx of atrial flutter with cardioversion in 2019. Presently still in sinus rhythm. - Continue beta-lois as above - Continue apixaban - Per cardiology, he had stopped amiodarone, and this was not continued inpatient. (6) Hypertension: BP today is 135/70. - Continue above meds. (7) Restless leg syndrome: More bothersome while in bed in the hospital. - Continue standing ropinirole 2 mg PO HS as well as 1 mg PO daily PRN (increased to 2 mg in evening standing as this is what he takes at home.) (8) BPH (benign prostatic hyperplasia): More bothersome while in bed. - Continue standing terazosin 2 mg PO HS as well as 2 mg PO daily PRN (9) DVT prophylaxis: On apixaban for hx of atrial flutter Total Time Total Time Spent Total Time Spent (In Minutes): 35 Discharge Plan Discharge Items Patient Disposition: Transfer Inpatient Rehab Fac Reason For Visit: ELEVATED TROPONIN,FRACTURE THROUGH BASE OFODONTOID Discharge Diagnosis: Staph aureus bacteremia, cervical fracture Condition on Discharge: Fair Activity: Resume your previous activity Non-emergency contact: Primary Care Provider Call non-emergency contact if: you have any medication questions Follow-up/Referrals: Zuleyma Chacon PA-C [Physician Rug Cleaner] - 06/17/21 1:00 pm Monico Alves DO [Primary Care Provider] - 05/27/21 9:20 am Diet: Heart Healthy Addtl Attending Provider Instructions: Mr. Dailey was admitted to the hospital for neck fracture and elevated troponin. He was found to have Staph bacteremia and was treated with vancomycin which was switched to cefazolin 2 g IV Q8h. This was approved by Infectious Disease. He will need 6 weeks of IV antibiotics because he cannot have a ALE due to his cervical fracture. (End date: 06/25/2021) He was evaluated by Padilla Hassan. There is no imminent concern for cervical spinal cord; however, he should undergo tertiary care referral for evaluation for eventual stabilization of his fracture. Pending Studies at Discharge: No Stand-Alone Forms: My [facility] Skilled Items Patient informed of condition?: Yes DNR: No Discharge Level of Care: Acute rehab Communicable Disease: No Discharge Prognosis: Improving Lines: PICC Urinary Catheter: No Medications and DC Order Prescriptions: New baclofen 10 mg Tablet 10 mg PO QID PRNQty: 0 RF: 0 atorvastatin 40 mg Tablet 40 mg PO HS Qty: 0 RF: 0 carvedilol 6.25 mg Tablet 6.25 mg PO BID Qty: 0 RF: 0 lisinopril [Zestril] 5 mg Tablet 5 mg PO QAM Qty: 0 RF: 0 cefazolin in 0.9% sod chloride 2 gram/100 mL solution 100 ml IV Q8H Qty: 1200 RF: 0 Continued terazosin 2 mg capsule 2 mg PO DAILY Qty: 90 RF: 1 etanercept 50 mg/mL (1 mL) cartridge 50 mg subcut .COMPLEX Qty: 4 RF: 0 prednisone 20 mg tablet 20 mg PO DAILY Qty: 18 RF: 0 tramadol 50 mg tablet 50 mg PO Q8H PRN (Reason: Pain) Qty: 30 RF: 0 omega-3 fatty acids [Fish Oil Concentrate] 1,000 mg capsule 1,000 mg PO BID Qty: 60 RF: 0 multivitamin Tablet 1 tab PO QPM RF: 0 terazosin 2 mg capsule 2 mg PO HS RF: 0 betamethasone dipropionate 0.05 % lotion 1 applic TOPICAL BID RF: 0 Eliquis 5 mg tablet 5 mg PO BID RF: 0 Changed ropinirole 1 mg tablet 2 mg PO BID Qty: 180 RF: 1 Discontinued carvedilol 12.5 mg tablet 12.5 mg PO BID Qty: 60 RF: 5 amiodarone 200 mg tablet 200 mg PO BIDM Qty: 180 RF: 1 potassium chloride [Klor-Con M20] 20 mEq tablet,ER particles/crystals 20 meq PO QAM Qty: 90 RF: 1 tamsulosin 0.4 mg capsule 0.4 mg PO DAILY Qty: 90 RF: 1 Eliquis 5 mg tablet 5 mg PO BID Qty: 60 RF: 5 betamethasone dipropionate 0.05 % lotion 1 applic topical BID Qty: 180 RF: 1 naproxen 250 mg tablet 250 - 500 mg PO BID PRN (Reason: pain) Qty: 180 RF: 1 amlodipine [Norvasc] 5 mg tablet 5 mg PO QAM Qty: 30 RF: 5 triamcinolone acetonide 0.1 % ointment 1 applic topical BID PRN (Reason: eczema) Qty: 30 RF: 2 Shingrix (PF) 50 mcg/0.5 mL suspension for reconstitution 0.5 ml IM .COMPLEX Qty: 1 RF: 1 ferrous sulfate [iron] 325 mg (65 mg iron) Tablet 325 mg PO QPM RF: 0 ferrous sulfate 325 mg (65 mg iron) Tablet,Delayed Release (Dr/Ec) 325 mg PO QAM Qty: 30 RF: 0 naproxen [Naprosyn] 250 mg Tablet 250 - 500 mg PO HS RF: 0 tramadol 50 mg Tablet 50 mg PO DAILY PRN (Reason: Pain) RF: 0 ropinirole 1 mg tablet 1 mg PO HS RF: 0 prednisone 20 mg tablet 20 mg PO DIRECTED RF: 0 Enbrel 50 mg/mL (1 mL) syringe 50 mg SUBCUT .[id number] RF: 0 Discharge Orders: Discharge Order (Routine); Ordered 05/17/21 Ordered By: Chandler Alves Admission Data Admit Date/Time: 05/12/21 02:19 Attending Provider: Chandler Alves Admit Provider: Francisco Guerrero Primary Care Provider: Monico Alves Other Providers: [facility] ; Francisco Guerrero ; Jorge Davis ; Wil Hassan Carlos M. ; Rohith Mireles ; Bryn Monsivais I. ; Sebastián Siddiqi II ; Rochelle Guan ; Fidencio Crum Other Interventions: Discharge Summary Assessment (RN) Last Done: 05/17/21 15:37 Coding Level of Care Code D/C Day Management >30 mins Diagnoses Bacteremia R78.81 Cervical spine fracture S12.9XXA Elevated troponin R77.8 Rheumatoid arthritis M06.9 Atrial flutter I48.92 Atrial flutter type: unspecified Hypertension I10 Restless leg syndrome G25.81 BPH (benign prostatic hyperplasia) N40.0 Lower urinary tract symptom presence: symptoms absent DVT prophylaxis Z29.9
== END 2021-05-17 17:44 | DRG 565 ==
LOC: EDBD 19:32 → ED 19:32 → MERGE 05-12 02:19 → 2S 05-12 02:19 → SUATTDRO 05-12 02:19 → 2S 05-12 03:10 → 2N 05-14 19:18

== ENCOUNTER 2021-06-20 11:17 | Inpatient (IN) ==
--- NOTE | 2021-06-20 12:24 | Emergency Department Note ---
Impression & Plan Respiratory failure, Pulmonary edema, Anemia ED Provider Note NAME: JASEN YO AGE: 66 SEX: M : 1955 ARRIVES VIA: Ambulance INFORMANT: Patient, ED PROVIDER(S): Kev Martinez DO CHIEF COMPLAINT: Shortness of breath HPI: The patient is a 66-year-old male who presented to the emergency department by ambulance for shortness of breath. The patient received a DuoNeb prior to arrival. He states he has been having intermittent episodes of shortness of breath for the last few months. He started having worsening shortness of breath prior to arrival. He has a history of atrial flutter as well as cardiomyopathy. He is currently being treated for bacteremia. He has a history of rheumatoid arthritis as well. The patient has a wound to his left leg. The patient did not have a reported fever. He did have hypoxia reported by the personal prison staff. The patient self denies having any chest pain. He does complain of cough which is nonproductive. He denies having any abdominal pain. He does complain of diffuse body aches including the arms as well as legs. Patient reportedly has been compliant with all of his outpatient medications. ROS: See above HPI for pertinent positives & negatives. A total of 10 systems reviewed and were otherwise negative. PAST MEDICAL HISTORY: See Below PAST SURGICAL HISTORY: See Below FAMILY HISTORY: See Below SOCIAL HISTORY: See Below HOME MEDICATIONS: See Below ALLERGIES: See Below VITALS: See Below PHYSICAL EXAMINATION: GENERAL: The patient is awake and alert. The patient is very anxious appearing and appears to be in significant distress. EYES: The conjunctivae are clear. The pupils are round and reactive. EARS, NOSE, MOUTH AND THROAT: The nose is without any evidence of any deformity. NECK: The neck is nontender and supple. No stridor was noted. RESPIRATORY: Shallow respirations were noted. Diminished breath sounds are noted throughout with expiratory wheezing in all underwood. CARDIOVASCULAR: Tachycardic and irregular heart sounds were noted to auscultation. There is no murmur. GASTROINTESTINAL: The abdomen is soft. Abdomen is nontender. MUSCULOSKELETAL/EXTREMITIES: There is diffuse contractures noted of both the upper and lower extremities. These appear chronic. SKIN: Skin was warm and dry. There is edema in both upper and lower extremities. A dressed wound was noted on the left foot. There was no surro unding erythema. NEUROLOGIC: Patient is awake alert and oriented x3. MEDICAL DECISION MAKING: The patient is a 66-year-old male who presented to the emergency department by ambulance for shortness of breath. The patient was found to have significant shortness of breath and dyspnea. He was tachycardic. The patient was placed on BiPAP. He was treated with a DuoNeb. I discussed the patient's laboratory and radiographic studies with him. He appears to be in pulmonary edema. He was treated with IV Lasix in the emergency department. I discussed the patient's condition with the on-call [facility]. They have agreed to evaluate the patient in the emergency department for further management and disposition. Triage Nursing notes reviewed. Prior medical records reviewed Vital Signs: reviewed and remarkable for tachycardia and hypoxia. Differential diagnosis: Reactive airway disease, pneumonia, pneumothorax, COPD, CHF, infections, card iac ischemia, pulmonary embolism, musculoskeletal, gastrointestinal, as well as other pathologies. ER treatment provided: See below Diagnostics interpreted by me: ECG: EKG was obtained in the emergency department. My interpretation is atrial fibrillation at 122 bpm. There were no PVCs noted. Diffuse ST segment abnormalities were noted. This was compared to a tracing from January [id number]. There is no specific changes noted. Cardiac Monitoring: An order was placed for continuous cardiac monitoring. The monitor shows a rate of 122 bpm with sinus rhythm. Laboratory studies: As stated above and show below. Imaging studies: See below Consultation(s): I discussed this case with Oseas who is on for the [facility] group. They will evaluate the patient in the emergency department for further management and disposition. ED COURSE: Procedures: none Critical Care: I have personally spent greater than 45 minutes of critical care time in the direct management of this patient. This includes bedside care, interpretation of diagnostic studies, and testing, discussion with consultants, patient, and family members, and other required patient management activities. This 45 minutes is in excess of all separately billable procedures. Past Med/Surg History Medical History Acute respiratory failure with hypoxemia Acute respiratory failure with hypoxia Atrial flutter Cardiomyopathy Cervical spine fracture Chronic neck pain History of cardioversion Homeless single person Hx of fracture of leg left - not current Hypertension Joint contracture of left lower leg Joint contracture of right lower leg Odontoid fracture Pneumonia Rheumatoid arthritis Thoracic vertebral fracture Surgical History History of tooth extraction Family History Father Family history of diabetes mellitus Denies family history of Ovarian cancer Prostate cancer Myocardial infarction Breast cancer Colorectal cancer Social History Smoking Status: Unknown if ever smoked Tobacco Type: Cigarettes Age Started Using Tobacco: 16; Age Quit Using Tobacco: 50; packs per day: 1; Years Smoked: 34; Cigarettes Per Day: 20; Number of Years Since Quit: 15; Second Hand Exposure: No; Hx Alcohol Use: No Hx Substance Use: No Preferred Language: Maldivian Communication Ability: Effective Visual Impairment: No Limitations Hearing Ability: Normal Floral Clerk Required: No Beliefs That Will Affect Care: None marital status: Single Current Living Situation: Detention current occupational status: unemployed Feels Safe at Home: Yes Safety Concerns: Feels Safe At This Time Childhood Exposure to Second-Hand Smoke: Yes during the past year weight has: increased > 10 lbs Dental Care, Regularly: Yes Physical Activity Frequency: Does not Exercise Seatbelt Use: always Sunscreen Use: No Assistive Devices: Wheelchair Allergies Allergies Allergy/AdvReac Type Severity Reaction Status Date / Time No Known Allergies Allergy Verified 06/20/21 15:11 Home Meds Home Medications Medication Instructions Recorded Confirmed betamethasone dipropionate 0.05 % 1 applic TOPICAL BID PRN 05/11/21 06/20/21 lotion terazosin 2 mg capsule 2 mg PO AMHS 05/11/21 06/20/21 acetaminophen 325 mg tablet 650 mg PO Q4H PRN MDD 3 GRAMS/24 06/05/21 06/20/21 (Tylenol) HOURS baclofen 10 mg tablet 10 mg PO Q6H PRN 06/05/21 06/20/21 carvedilol 6.25 mg tablet 6.25 mg PO BID 06/05/21 06/20/21 cefazolin 2 gram/100 mL in 0.9 % 50 ml IV Q8H 06/05/21 06/20/21 sodium chloride intravenous solution docusate sodium 100 mg capsule 100 mg PO BIDM 06/05/21 06/20/21 ferrous sulfate 325 mg (65 mg 325 mg PO BIDM 06/05/21 06/20/21 iron) tablet lidocaine HCl 2 % mucosal solution 5 ml MUCOUS MEMBRANE ACHS 06/05/21 06/20/21 (Lidocaine Viscous) magnesium hydroxide 400 mg/5 mL 30 ml PO DAILY PRN 06/05/21 06/20/21 oral suspension (Milk of Magnesia) omega-3 fatty acids 1,000 mg 1,000 mg PO BIDM 06/05/21 06/20/21 capsule (Fish Oil Concentrate) ropinirole 2 mg tablet 2 mg PO Q12H 06/05/21 06/20/21 tramadol 50 mg tablet 50 - 100 mg PO Q4H PRN 06/05/21 06/20/21 albuterol sulfate 2.5 mg INHALATION Q8 PRN 06/20/21 06/20/21 multivitamin 1 tab PO DAILY 06/20/21 06/20/21 Previous Rx's Medication Instructions Recorded atorvastatin 40 mg tablet 40 mg PO HS #0 tab 05/17/21 lisinopril 5 mg tablet (Zestril) 5 mg PO QAM #0 tab 05/17/21 etanercept 50 mg/mL (1 mL) 50 mg SUBCUT WK #12 ml 05/22/21 subcutaneous syringe (Enbrel) Results & Data (ED) Vital Signs Vital Signs - 24 hr 06/20/21 12:00 06/20/21 12:44 06/20/21 12:46 Temperature 36.6 C Temperature Source Temporal Artery Scan Pulse Rate 115 H 114 H Pulse Rate from SpO2 Sensor Respiratory Rate 26 H 24 Respiratory Effort / Characteristics Labored Short of Breath Respiratory Depth Blood Pressure 138/103 H 125/86 Blood Pressure Mean 114 99 Pulse Oximetry 96 96 Oxygen Delivery Method Room Air Room Air Fraction of Inspired Oxygen Sepsis Recent Fever Within 48 Hours Yes Sepsis New/Unexplained Change in Mental Status Yes Sepsis Action Taken by Nursing Physician Notified 06/20/21 12:54 06/20/21 13:00 06/20/21 13:19 Temperature Temperature Source Pulse Rate 100 H 121 H Pulse Rate from SpO2 Sensor Respiratory Rate 22 22 22 Respiratory Effort / Characteristics Spontaneous Spontaneous Respiratory Depth Normal Blood Pressure 135/88 Blood Pressure Mean 103 Pulse Oximetry 99 100 Oxygen Delivery Method BiPAP Fraction of Inspired Oxygen 40 40 Sepsis Recent Fever Within 48 Hours Sepsis New/Unexplained Change in Mental Status Sepsis Action Taken by Nursing 06/20/21 14:00 06/20/21 14:30 06/20/21 15:00 Temperature Temperature Source Pulse Rate 119 H 115 H 122 H Pulse Rate from SpO2 Sensor 111 H 118 H Respiratory Rate 18 18 18 Respiratory Effort / Characteristics Respiratory Depth Blood Pressure 125/82 142/83 H 125/75 Blood Pressure Mean 96 102 91 Pulse Oximetry 100 100 Oxygen Delivery Method Fraction of Inspired Oxygen Sepsis Recent Fever Within 48 Hours Sepsis New/Unexplained Change in Mental Status Sepsis Action Taken by Detention Medications Current Medication List: was personally reviewed by me Laboratory Data Attestation: I reviewed the patient's lab results. Result diagrams: 06/20/21 11:45 06/20/21 12:14 Lab Results 06/20/21 06/20/21 06/20/21 Range/Units 11:45 11:45 11:45 WBC 5.76 (4.8-10.8) K/uL RBC 3.61 L (4.7-6.1) M/uL Hgb 8.7 L (14.0-18.0) g/dL Hct 28.2 L (42-52) % MCV 78.1 L (80-100) fL MCH 24.1 L (25-34) pg MCHC 30.9 L (32-36) g/dL RDW Std Deviation 53.6 H (36.4-46.3) fL RDW Coeff of Jayjay 18.6 H (11.5-14.5) % Plt Count 317 (130-400) K/uL MPV 8.5 (7.4-10.4) fL Immature Gran % (Auto) 0.2 % Neut % (Auto) 80.0 % Lymph % (Auto) 11.5 % [place] % (Auto) 5.4 % Eos % (Auto) 2.6 % Baso % (Auto) 0.3 % Neut # (Auto) 4.61 (1.4-6.5) K/uL Lymph # (Auto) 0.66 L (1.2-3.4) K/uL [place] # (Auto) 0.31 (0.11-0.59) K/uL Eos # (Auto) 0.15 (0-0.5) K/uL Baso # (Auto) 0.02 (0-0.2) K/uL Immature Gran # (Auto) 0.01 (0.00-0.02) K/uL PT 13.8 H (9.0-12.0) Seconds INR 1.4 H (0.9-1.1) APTT 31.6 H (21.0-31.0) Seconds PTT Ratio 1.2 VBG pH (7.36-7.41) VBG pCO2 (38-50) mmHg VBG pO2 mmHg VBG HCO3 mmol/L VBG O2 Saturation % VBG Base Excess mEq/L Barometric Pressure mm/Hg Sodium (136-145) mmol/L Potassium (3.5-5.1) mmol/L Chloride (98-107) mmol/L Carbon Dioxide (21-32) mmol/L Anion Gap (3-11) BUN (7-18) mg/dl Creatinine (0.6-1.4) mg/dl Est Cr Clr Drug Dosing ml/min Est GFR ( Amer) ml/min Est GFR (Non-Af Amer) ml/min BUN/Creatinine Ratio (10-20) Glucose (70-99) mg/dl Lactate 1.3 (0.4-2.0) mmol/L Calcium (8.5-10.1) mg/dl Magnesium (1.8-2.4) mg/dl Total Bilirubin (0.2-1) mg/dl AST (15-37) U/L ALT (12-78) U/L Alkaline Phosphatase (45-117) U/L Troponin I (0-0.045) ng/ml NT-Pro-B Natriuret Pep (0-900) pg/ml Total Protein (6.4-8.2) gm/dl Albumin (3.4-5.0) gm/dl Globulin (2.5-4.0) gm/dl Albumin/Globulin Ratio (0.9-2) Procalcitonin (0-0.5) ng/ml Specimen Hemolysis COVID-19 Eval Order SARS-CoV-2 (PCR) (Negative) 06/20/21 06/20/21 06/20/21 Range/Units 11:45 12:14 12:20 WBC (4.8-10.8) K/uL RBC (4.7-6.1) M/uL Hgb (14.0-18.0) g/dL Hct (42-52) % MCV (80-100) fL MCH (25-34) pg MCHC (32-36) g/dL RDW Std Deviation (36.4-46.3) fL RDW Coeff of Jayjay (11.5-14.5) % Plt Count (130-400) K/uL MPV (7.4-10.4) fL Immature Gran % (Auto) % Neut % (Auto) % Lymph % (Auto) % [place] % (Auto) % Eos % (Auto) % Baso % (Auto) % Neut # (Auto) (1.4-6.5) K/uL Lymph # (Auto) (1.2-3.4) K/uL [place] # (Auto) (0.11-0.59) K/uL Eos # (Auto) (0-0.5) K/uL Baso # (Auto) (0-0.2) K/uL Immature Gran # (Auto) (0.00-0.02) K/uL PT (9.0-12.0) Seconds INR (0.9-1.1) APTT (21.0-31.0) Seconds PTT Ratio VBG pH 7.41 (7.36-7.41) VBG pCO2 34 L (38-50) mmHg VBG pO2 41 mmHg VBG HCO3 21 mmol/L VBG O2 Saturation 73.5 % VBG Base Excess -2.6 mEq/L Barometric Pressure 733.1 mm/Hg Sodium 134 L (136-145) mmol/L Potassium 3.7 (3.5-5.1) mmol/L Chloride 103 (98-107) mmol/L Carbon Dioxide 24 (21-32) mmol/L Anion Gap 7.0 (3-11) BUN 9 (7-18) mg/dl Creatinine 0.40 L (0.6-1.4) mg/dl Est Cr Clr Drug Dosing 207.6 ml/min Est GFR ( Amer) 143.5 ml/min Est GFR (Non-Af Amer) 123.8 ml/min BUN/Creatinine Ratio 23.3 H (10-20) Glucose 100 H (70-99) mg/dl Lactate (0.4-2.0) mmol/L Calcium 7.4 L (8.5-10.1) mg/dl Magnesium 1.7 L (1.8-2.4) mg/dl Total Bilirubin 0.3 (0.2-1) mg/dl AST 20 (15-37) U/L ALT 8 L (12-78) U/L Alkaline Phosphatase 89 (45-117) U/L Troponin I < 0.015 (0-0.045) ng/ml NT-Pro-B Natriuret Pep 69300 H (0-900) pg/ml Total Protein 5.3 L (6.4-8.2) gm/dl Albumin 1.6 L (3.4-5.0) gm/dl Globulin 3.7 (2.5-4.0) gm/dl Albumin/Globulin Ratio 0.4 L (0.9-2) Procalcitonin 0.07 (0-0.5) ng/ml Specimen Hemolysis COVID-19 Eval Order SARS-CoV-2 (PCR) (Negative) 06/20/21 06/20/21 Range/Units 12:26 12:26 WBC (4.8-10.8) K/uL RBC (4.7-6.1) M/uL Hgb (14.0-18.0) g/dL Hct (42-52) % MCV (80-100) fL MCH (25-34) pg MCHC (32-36) g/dL RDW Std Deviation (36.4-46.3) fL RDW Coeff of Jayjay (11.5-14.5) % Plt Count (130-400) K/uL MPV (7.4-10.4) fL Immature Gran % (Auto) % Neut % (Auto) % Lymph % (Auto) % [place] % (Auto) % Eos % (Auto) % Baso % (Auto) % Neut # (Auto) (1.4-6.5) K/uL Lymph # (Auto) (1.2-3.4) K/uL [place] # (Auto) (0.11-0.59) K/uL Eos # (Auto) (0-0.5) K/uL Baso # (Auto) (0-0.2) K/uL Immature Gran # (Auto) (0.00-0.02) K/uL PT (9.0-12.0) Seconds INR (0.9-1.1) APTT (21.0-31.0) Seconds PTT Ratio VBG pH (7.36-7.41) VBG pCO2 (38-50) mmHg VBG pO2 mmHg VBG HCO3 mmol/L VBG O2 Saturation % VBG Base Excess mEq/L Barometric Pressure mm/Hg Sodium (136-145) mmol/L Potassium (3.5-5.1) mmol/L Chloride (98-107) mmol/L Carbon Dioxide (21-32) mmol/L Anion Gap (3-11) BUN (7-18) mg/dl Creatinine (0.6-1.4) mg/dl Est Cr Clr Drug Dosing ml/min Est GFR ( Amer) ml/min Est GFR (Non-Af Amer) ml/min BUN/Creatinine Ratio (10-20) Glucose (70-99) mg/dl Lactate (0.4-2.0) mmol/L Calcium (8.5-10.1) mg/dl Magnesium (1.8-2.4) mg/dl Total Bilirubin (0.2-1) mg/dl AST (15-37) U/L ALT (12-78) U/L Alkaline Phosphatase (45-117) U/L Troponin I (0-0.045) ng/ml NT-Pro-B Natriuret Pep (0-900) pg/ml Total Protein (6.4-8.2) gm/dl Albumin (3.4-5.0) gm/dl Globulin (2.5-4.0) gm/dl Albumin/Globulin Ratio (0.9-2) Procalcitonin (0-0.5) ng/ml Specimen Hemolysis COVID-19 Eval Order Covid19 at [facility] SARS-CoV-2 (PCR) NEGATIVE (Negative) Administered Medications Docusate Sodium (Docusate Sodium 100 Mg Cap) 100 mg PO BIDM [facility] Stop: 07/20/21 16:59 Last Admin: 06/20/21 18:05 Dose: 100 mg Documented by: [id number] Ferrous Sulfate (Ferrous Sulfate 325 Mg Tab) 325 mg PO BIDM [facility] Stop: 07/20/21 16:59 Last Admin: 06/20/21 18:05 Dose: 325 mg Documented by: [id number] Magnesium Sulfate/Dextrose (Magnesium Sulfate / D5w) 1 gm in 100 mls @ 50 mls/hr IV Q2H [facility] Stop: 06/20/21 18:59 Last Admin: 06/20/21 17:16 Dose: 50 mls/hr Documented by: [id number] Infusion: 06/20/21 17:16 Dose: 50 mls/hr Documented by: [id number] Admin: 06/20/21 16:02 Dose: 50 mls/hr Documented by: [id number] Cefazolin Sodium (Ancef 2000mg) 2,000 mg in 15 mls @ 3.75 mls/min IV Q8H [facility]; Protocol Stop: 06/26/21 23:59 Last Admin: 06/20/21 18:06 Dose: 3.75 mls/min Documented by: [id number] Ropinirole HCl (Ropinirole Hcl 1 Mg Tablet) 2 mg PO Q12H [facility] Stop: 07/20/21 17:59 Last Admin: 06/20/21 18:05 Dose: 2 mg Documented by: [id number] Discontinued Medications Albuterol (Albut/Ipratrop 3mg/0.5mg Neb 3 Ml Vial) 12 ml NEB ONE ONE Stop: 06/20/21 13:09 Last Admin: 06/20/21 13:18 Dose: Not Given Documented by: [id number] Alteplase, Recombinant (Alteplase, Recombinant 1 Mg/Ml 2ml Vial) 2 mg INSTIL ONE ONE Stop: 06/20/21 16:46 Last Admin: 06/20/21 16:57 Dose: 2 mg Documented by: [id number] Cosigned by: [id number] Furosemide (Furosemide 40 Mg/4 Ml Vial) 40 mg IV NOW STA Stop: 06/20/21 13:56 Last Admin: 06/20/21 15:06 Dose: 40 mg Documented by: [id number] Ioversol (Optiray 320 125ml) 120 ml IV ONCE ONE Stop: 06/20/21 15:30 Last Admin: 06/20/21 15:30 Dose: 120 ml Documented by: [id number] Imaging Data Radiologist's Impression: Chest X-Ray 06/20/21 11:58 SINGLE VIEW CHEST CLINICAL HISTORY: Sepsis. FINDINGS: 2 AP, portable, upright chest radiographs are compared to study dated 05/11/2021 and correlated with chest CT dated 10/15/2014. The examination is degraded by portable technique and patient rotation. A right PICC line is in place. The tip of the catheter projects over the SVC. The heart is enlarged noting atherosclerotic calcification of the thoracic aorta. There is pulmonary vascular congestion. Bilateral airspace opacities are typical for pulmonary edema. There are layering pleural effusions with bibasilar consolidation. No pneumothorax is seen. The skeletal structures are osteopenic. The bony thorax is grossly intact. Advanced arthritic change is seen in the shoulders. IMPRESSION: 1. Cardiomegaly with evidence of congestive failure. 2. Bilateral airspace opacities are typical for pulmonary edema. Correlate clinically for evidence of superimposed pneumonia. 3. Layering pleural effusions with bibasilar consolidation. 4. A right PICC line is new from previous.. ACT 112: Negative or not required by law. Electronically signed by: Axel Cochran M.D. 06/20/2021 1:39 PM Chest CTA 06/20/21 14:43 CHEST CTA for PULMONARY ARTERIES CT DOSE: 1020.32 mGy.cm HISTORY: Shortness of breath. TECHNIQUE: Multiaxial CT images of the chest were performed following the intravenous administration of contrast to evaluate the pulmonary arteries. Maximal intensity projection images were also obtained. A dose lowering technique was utilized adhering to the principles of ALARA. COMPARISON STUDY: Chest 06/20/2021. FINDINGS: Normal caliber thoracic aorta with no evidence for dissection. There are moderate bilateral pleural effusions and a moderate pericardial effusion. The pericardial effusion demonstrates a maximal diameter of 2.2 cm. Limited views of the upper abdomen demonstrate retrograde opacification of the renal veins. This suggests underlying right-sided heart dysfunction. Nondiagnostic evaluation of the majority of the bilateral lower lobe segmental and subsegmental pulmonary arteries due to the motion artifact and inadequate opacification. The main and lobar pulmonary arteries are patent. Possible filling defect versus motion artifact within a subsegmental right upper lobe pulmonary artery on image 189. No fractures within the visualized osseous structures. Advanced degenerative changes within the bilateral shoulders. The right shoulder is only partially visualized on this study. Severe body wall edema is noted. A right PICC terminates in the distal SVC. Subcentimeter mediastinal and bilateral hilar lymph nodes do not meet CT criteria for pathologic involvement. There are few prominent bilateral axillary lymph nodes with the largest on the right measuring 1.2 cm in short axis diameter. Normal caliber esophagus. Consolidation within the bilateral lower lobes posteriorly are nonspecific but favor compressive atelectasis from the pleural effusions. Narrowing of the bilateral lower lobe bronchi likely due to the compressive atelectasis. The heart is mildly enlarged. IMPRESSION: 1. No evidence for central pulmonary embolus. The distal pulmonary arteries are now well evaluated due to the suboptimal contrast opacification and motion artifact. Possible filling defect versus motion artifact within a subsegmental right upper lobe pulmonary artery. A small pulmonary embolus is considered less likely but not entirely excluded. Consider follow-up lower extremity venous Doppler study to exclude the possibility of a deep vein thrombosis. 2. Moderate bilateral pleural fusions and a moderate pericardial effusion. 3. Consolidation within the lower lobes posteriorly is nonspecific but favors compressive atelectasis from the pleural effusions. A pneumonia could also have a similar appearance. 4. Severe body wall edema. 5. A few borderline enlarged bilateral axillary lymph nodes. 6. Mild cardiomegaly. ACT 112: Negative or not required by law. Electronically signed by: Jacky Morocho M.D. 06/20/2021 4:18 PM Discharge Plan Visit Data Chief Complaint: Shortness of Breath/Dyspnea Stated Complaint: SOB ED Provider: Kev Martinez Discharge Problem: Respiratory failure, Pulmonary edema, Anemia Patient Disposition: Admitted As Inpatient Condition: Good Discharge Instructions Interventions: ED Discharge Assessment Last Done: 06/20/21 16:17
[2021-06-20 12:32] LABS: Basophils # (auto) 0.02 K/uL (0-0.2); Basophils % (auto) 0.3 %; Eosinophils # (auto) 0.15 K/uL (0-0.5); Eosinophils % (auto) 2.6 %; Hematocrit (blood only) 28.2 % (42-52); Hemoglobin 8.7 g/dL (14.0-18.0); Immature Granulocytes # (auto) 0.01 K/uL (0.00-0.02); Immature Granulocytes % (auto) 0.2 %; Lymphocytes # (auto) 0.66 K/uL (1.2-3.4); Lymphocytes % (auto) 11.5 %; Mean Corpuscular Hemoglobin 24.1 pg (25-34); Mean Corpuscular Hgb Conc 30.9 g/dL (32-36); Mean Corpuscular Volume 78.1 fL (80-100); Mean Platelet Volume 8.5 fL (7.4-10.4); Monocytes # (auto) 0.31 K/uL (0.11-0.59); Monocytes % (auto) 5.4 %; Neutrophils # (auto) 4.61 K/uL (1.4-6.5); Platelet Count 317 K/uL (130-400); RDW Coefficient of Variation 18.6 % (11.5-14.5); RDW Standard Deviation 53.6 fL (36.4-46.3); Red Blood Count 3.61 M/uL (4.7-6.1); White Blood Count 5.76 K/uL (4.8-10.8)
[2021-06-20 12:35] LABS: Base Excess VBG -2.6 mEq/L; Oxygen Saturation VBG 73.5 %; pH VBG 7.41 (7.36-7.41)
[2021-06-20 12:43] LABS: INR 1.4 (0.9-1.1); Partial Thromboplastin Ratio 1.2; Partial Thromboplastin Time 31.6 Seconds (21.0-31.0); Prothrombin Time 13.8 Seconds (9.0-12.0)
[2021-06-20 12:49] LABS: Alanine Aminotransferase 8 U/L (12-78); Albumin Level 1.6 gm/dl (3.4-5.0); Aspartate Aminotransferase 20 U/L (15-37); BUN Creatinine Ratio 23.3 (10-20); Blood Urea Nitrogen 9 mg/dl (7-18); Calcium 7.4 mg/dl (8.5-10.1); Carbon Dioxide 24 mmol/L (21-32); Chloride 103 mmol/L (98-107); Creatinine Clr Calc Pharmacy 207.6 ml/min; Est GFR (African American) 143.5 ml/min; Est GFR (Non-African American) 123.8 ml/min; Glucose 100 mg/dl (70-99); Magnesium 1.7 mg/dl (1.8-2.4); Potassium 3.7 mmol/L (3.5-5.1); Sodium 134 mmol/L (136-145)
[2021-06-20 12:51] LABS: Albumin Globulin Ratio 0.4 (0.9-2); Alkaline Phosphatase 89 U/L (45-117); Bilirubin,Total 0.3 mg/dl (0.2-1); Globulin 3.7 gm/dl (2.5-4.0); NT Pro B Type Natriuretic Pept 20467 pg/ml (0-900); Total Protein 5.3 gm/dl (6.4-8.2); Troponin I < 0.015 ng/ml (0-0.045)
[2021-06-20] MEDS ORDERED: ALBUT/IPRATROP 3MG/0.5MG NEB 3 ML VIAL NEB ONE (13:08)
--- NOTE | 2021-06-20 13:26 | Electrocardiogram Report ---
Test Reason : Blood Pressure : / mmHG Vent. Rate : 122 BPM Atrial Rate : 129 BPM P-R Int : 000 ms QRS Dur : 100 ms QT Int : 330 ms P-R-T Axes : 000 059 013 degrees QTc Int : 470 ms Poor data quality, interpretation may be adversely affected Atrial fibrillation with rapid ventricular response Low voltage QRS Nonspecific T wave abnormality Abnormal ECG When compared with ECG of 01-FEB-2020 18:53, Atrial fibrillation has replaced Atrial flutter Nonspecific T wave abnormality has replaced inverted T waves in Inferior leads Nonspecific T wave abnormality, worse in Lateral leads Confirmed by Jd Marquez ([id number]) on 06/20/2021 1:25:51 PM Referred By: [facility] Confirmed By:Reymundo Marquez
--- NOTE | 2021-06-20 13:40 | XRay Report ---
SINGLE VIEW CHEST CLINICAL HISTORY: Sepsis. FINDINGS: 2 AP, portable, upright chest radiographs are compared to study dated 05/11/2021 and correlat ed with chest CT dated 10/15/2014. The examination is degraded by portable technique and patient rotat ion. A right PICC line is in place. The tip of the catheter projects over the SVC. The heart is enlar ged noting atherosclerotic calcification of the thoracic aorta. There is pulmonary vascular congestio n. Bilateral airspace opacities are typical for pulmonary edema. There are layering pleural effusions with bibasilar consolidation. No pneumothorax is seen. The skeletal structures are osteopenic. The b gisella thorax is grossly intact. Advanced arthritic change is seen in the shoulders. IMPRESSION: 1. Cardiomegaly with evidence of congestive failure. 2. Bilateral airspace opacities are typical for pulmonary edema. Correlate clinically for evidence of superimposed pneumonia. 3. Layering pleural effusions with bibasilar consolidation. 4. A right PICC line is new from previous.. ACT 112: Negative or not required by law. Electronically signed by: Axel Cochran M.D. 06/20/2021 1:39 PM
[2021-06-20] MEDS ORDERED: FUROSEMIDE 40 MG/4 ML VIAL IV STA (13:55)
--- NOTE | 2021-06-20 14:54 | History & Physical Report ---
Date of Service June 20, 2021 Assessment & Plan (1) Pulmonary edema: Plan: Pulmonary edema in the setting of likely rate related heart failure - Patient appears to do poorly with tachycardia/afib/aflutter- was cardioverted in 2019 - He is in afib with evidence of pulmonary edema on exam and radiologically - BNP is elevated and is relieved following BIPAP and nebs - Continue with Lasix 40 mg IV q6 x 2 more doses tonight into tomorrow morning (2) Dyspnea: Plan: Secondary to pulmonary edema, appreciating infectious process at this time as no WBC, sputum production and/or oxygen need - Pleural effusion present- continue with aggressive diuresis over next 24 hours and re-evaluate - atelectasis likely from above- follow clinical course - BIPAP prn available - nebs scheduled (3) Cardiomyopathy: Plan: ECHO 05/12/21- EF 50-55% severe hypokinesis to akinesis of the inferolateral wall and akinesis of the basal inferior wall - Pulmonary status improved following the above- will work on rate control - Replete magnesium - Continue Carvedilol at 6.25 mg PO BID - Metoprolol 5mg IV PRN for HR >120 (4) Pleural effusion: Plan: Multifactorial with low albumin and HF - Diurese as above and follow - no clinical need to drain at this time as he is also on Eliquis - continue to follow (5) Afib: Plan: As above - Diurese and replace magnesium and electrolytes - See if offloading volume assists - Continue respiratory and CV support (6) Cervical spine fracture: Plan: Odontoid fracture of neck in May - no complaints of pain on exam and no radicular symptoms to upper extremities - Was to follow up at outpatient tertiary center for evaluation- not sure this ever occurred. (7) Joint contracture of left lower leg: Plan: Wheel chair bound and high fall risk - PT/OT - Multiple assist likey needed with transfers to prevent further injuries to number 4 (8) Hypertension: Plan: Appears well controlled - As above diurese, follow hemodynamics (9) Wheelchair bound: Plan: As above (10) Hypoalbuminemia: Plan: Chronic poor nutrition state - Patient likely unable to care for himself sufficiently (11) Restless leg syndrome: Plan: Continue ropinirole and tramadol (12) Anemia: Plan: HGB 8.7 at this point- HGB/HCT 10-9 Patient denies any blood or dark stools - Microcytic continue iron supplementation - follow with david (13) S/P PICC central line placement: Plan: PICC chronic- cleaned intact - Reported difficulty flushing and with blood draw - activase and re-evaluate function History of Present Illness Primary Care Provider: Joss [facility] 66 YOM with past medical history of- odontoid cervical fracture, atrial flutter, HTN, wheel chair bound, cardiomyopathy, contractures of lower legs, respiratory failure requiring intubation in January 26. Patient comes to the emergency room today for complains of shortness of breath that occurred while he was assisting his caregiver this morning while rolling on his left side. He said this caused him to pass out for a few seconds. He denies fevers or chills and denies any productive cough. The patient was placed on BiPAP when he arrived to the EMD although has not been hypoxic since arrival. He does exhibit expiratory wheezes bilaterally and crackles throughout. He is in afib with HR in the 120s and states he has missed several doses of Eliquis. In the [facility] the patient received 1 hour nebulizer while on BiPAP 10/, hot hypercarbic on VBG and SPO2 on monitor 96-100%, he had routine labs drawn that reveal elevated BNP [id number] and was administered 40 mg IV Lasix. Patient will be admitted to continue to [facility] and evaluate pulmonary status. Will obtain CTA of the chest secondary to acute development of dyspnea and missing doses of Eliquis. The patient has a PICC line for completing 6 weeks of ANCEF as on his last admission had persistent blood cultures positive for MSSA and inability to effectively rule out IE with his cervical fracture as above. Patient was being followed by ID, continue for now. Patient has repeat blood cultures at this time. No fevers endorsed and does not appear septic. PICC line is clean and left lower foot wound covered with Keflex, without sign of infection. Allergies Allergy/AdvReac Type Severity Reaction Status Date / Time No Known Allergies Allergy Verified 06/20/21 15:11 Home Medications Medication Instructions Recorded Confirmed Type betamethasone dipropionate 0.05 % 1 applic TOPICAL BID PRN 05/11/21 06/20/21 History lotion terazosin 2 mg capsule 2 mg PO AMHS 05/11/21 06/20/21 History atorvastatin 40 mg tablet 40 mg PO HS #0 tab 05/17/21 06/20/21 Rx lisinopril 5 mg tablet (Zestril) 5 mg PO QAM #0 tab 05/17/21 06/20/21 Rx etanercept 50 mg/mL (1 mL) 50 mg SUBCUT WK #12 ml 05/22/21 06/20/21 Rx subcutaneous syringe (Enbrel) acetaminophen 325 mg tablet 650 mg PO Q4H PRN MDD 3 GRAMS/24 06/05/21 06/20/21 History (Tylenol) HOURS baclofen 10 mg tablet 10 mg PO Q6H PRN 06/05/21 06/20/21 History carvedilol 6.25 mg tablet 6.25 mg PO BID 06/05/21 06/20/21 History cefazolin 2 gram/100 mL in 0.9 % 50 ml IV Q8H 06/05/21 06/20/21 History sodium chloride intravenous solution docusate sodium 100 mg capsule 100 mg PO BIDM 06/05/21 06/20/21 History ferrous sulfate 325 mg (65 mg 325 mg PO BIDM 06/05/21 06/20/21 History iron) tablet lidocaine HCl 2 % mucosal solution 5 ml MUCOUS MEMBRANE ACHS 06/05/21 06/20/21 History (Lidocaine Viscous) magnesium hydroxide 400 mg/5 mL 30 ml PO DAILY PRN 06/05/21 06/20/21 History oral suspension (Milk of Magnesia) omega-3 fatty acids 1,000 mg 1,000 mg PO BIDM 06/05/21 06/20/21 History capsule (Fish Oil Concentrate) ropinirole 2 mg tablet 2 mg PO Q12H 06/05/21 06/20/21 History tramadol 50 mg tablet 50 - 100 mg PO Q4H PRN 06/05/21 06/20/21 History albuterol sulfate 2.5 mg INHALATION Q8 PRN 06/20/21 06/20/21 History multivitamin 1 tab PO DAILY 06/20/21 06/20/21 History apixaban 5 mg tablet (Eliquis) 5 mg PO BID 06/21/21 06/21/21 History Past Med/Surg History Medical History (Updated 06/23/21 @ 17:36 by Lesley Collins MD) Acute respiratory failure with hypoxemia Acute respiratory failure with hypoxia Atrial flutter Cardiomyopathy Cervical spine fracture Chronic diastolic CHF (congestive heart failure) Chronic neck pain History of cardioversion Homeless single person Hx of fracture of leg left - not current Hypertension Joint contracture of left lower leg Joint contracture of right lower leg Odontoid fracture Pneumonia Rheumatoid arthritis Thoracic vertebral fracture Surgical History (Updated 06/20/21 @ 15:11 by CARRIE Hernandez) History of tooth extraction Family History Father Family history of diabetes mellitus Denies family history of Ovarian cancer Prostate cancer Myocardial infarction Breast cancer Colorectal cancer Social History Smoking Status: Unknown if ever smoked Tobacco Type: Cigarettes Age Started Using Tobacco: 16; Age Quit Using Tobacco: 50; packs per day: 1; Years Smoked: 34; Cigarettes Per Day: 20; Number of Years Since Quit: 15; Second Hand Exposure: No; Hx Alcohol Use: No Hx Substance Use: No Preferred Language: Pakistani Communication Ability: Effective Visual Impairment: No Limitations Hearing Ability: Normal 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 Required: No Beliefs That Will Affect Care: None marital status: Single Current Living Situation: [facility]itentiary current occupational status: unemployed How many Children do You have: 3 Feels Safe at Home: Yes Safety Concerns: Feels Safe At This Time Childhood Exposure to Second-Hand Smoke: Yes during the past year weight has: increased > 10 lbs Dental Care, Regularly: Yes Physical Activity Frequency: Does not Exercise Seatbelt Use: always Sunscreen Use: No Assistive Devices: Oxygen - at Night Review of Systems Review of Systems: REVIEW OF SYSTEMS: Constitutional: No fever, sweats or chills Eyes: No diplopia, no worsening or blurred vision ENT: normal hearing, no trouble swallowing Respiratory: (+) cough, dyspnea at rest or on exertion, No sputum, Cardiovascular: No chest pain, tightness or palpitations Abdomen: No pain, nausea, vomiting, diarrhea or constipation Musculoskeletal:(+) wheel chair bound No joint pain, calf pain, swelling Neurologic: No weakness, numbness/tingling, or balance problems Psychiatric: No anxiety or depression Skin: No rash or itch Physical Exam Physical Exam: PHYSICAL EXAM: General: awake, alert, no apparent distress Head: Normocephalic, atraumatic ENT: PERRL, EOMI, no pharyngeal exudate, mucous membranes moist Neuro: AAO x 3, speech clear and appropriate, strength intact bilaterally 5/5 upper extremities, no focal deficits or facial droop Chest: equal rise and fall of the chest, no accessory muscle use, scattered crackles throughouth with expiratory wheeze bilaterally, on BiPAP 10/5 with VT 400-800 and on 40% FIO2 with SPO2 100%, wean off no JVD, no murmur, no edema, Tachycardic on monitor atrial flutter GI: NABS x 4 quadrants, soft, nontender to palpation, no rebound, guarding or tenderness : Spontaneously voids pending, no pain, no CVA tenderness, Psych: Normal mood and affect Results & Data Results & Data ([facility]) Vital Signs (Past 12 Hours) Vital Signs Temp Pulse Resp BP Pulse Ox 06/20/21 13:19 22 100 06/20/21 13:00 121 H 22 135/88 06/20/21 12:54 100 H 22 99 06/20/21 12:46 114 H 24 125/86 06/20/21 12:44 96 06/20/21 12:00 36.6 C 115 H 26 H 138/103 H 96 Laboratory Results Abnormal lab results 06/20/21 06/20/21 06/20/21 Range/Units 11:45 11:45 12:14 RBC 3.61 L (4.7-6.1) M/uL Hgb 8.7 L (14.0-18.0) g/dL Hct 28.2 L (42-52) % MCV 78.1 L (80-100) fL MCH 24.1 L (25-34) pg MCHC 30.9 L (32-36) g/dL RDW Std Deviation 53.6 H (36.4-46.3) fL RDW Coeff of Jayjay 18.6 H (11.5-14.5) % Lymph # (Auto) 0.66 L (1.2-3.4) K/uL PT 13.8 H (9.0-12.0) Seconds INR 1.4 H (0.9-1.1) APTT 31.6 H (21.0-31.0) Seconds VBG pCO2 (38-50) mmHg Sodium 134 L (136-145) mmol/L Creatinine 0.40 L (0.6-1.4) mg/dl BUN/Creatinine Ratio 23.3 H (10-20) Glucose 100 H (70-99) mg/dl Calcium 7.4 L (8.5-10.1) mg/dl Magnesium 1.7 L (1.8-2.4) mg/dl ALT 8 L (12-78) U/L NT-Pro-B Natriuret Pep 23294 H (0-900) pg/ml Total Protein 5.3 L (6.4-8.2) gm/dl Albumin 1.6 L (3.4-5.0) gm/dl Albumin/Globulin Ratio 0.4 L (0.9-2) 06/20/21 Range/Units 12:20 RBC (4.7-6.1) M/uL Hgb (14.0-18.0) g/dL Hct (42-52) % MCV (80-100) fL MCH (25-34) pg MCHC (32-36) g/dL RDW Std Deviation (36.4-46.3) fL RDW Coeff of Jayjay (11.5-14.5) % Lymph # (Auto) (1.2-3.4) K/uL PT (9.0-12.0) Seconds INR (0.9-1.1) APTT (21.0-31.0) Seconds VBG pCO2 34 L (38-50) mmHg Sodium (136-145) mmol/L Creatinine (0.6-1.4) mg/dl BUN/Creatinine Ratio (10-20) Glucose (70-99) mg/dl Calcium (8.5-10.1) mg/dl Magnesium (1.8-2.4) mg/dl ALT (12-78) U/L NT-Pro-B Natriuret Pep (0-900) pg/ml Total Protein (6.4-8.2) gm/dl Albumin (3.4-5.0) gm/dl Albumin/Globulin Ratio (0.9-2) Diagnostic Findings Chest X-Ray 06/20/21 11:58 SINGLE VIEW CHEST CLINICAL HISTORY: Sepsis. FINDINGS: 2 AP, portable, upright chest radiographs are compared to study dated 05/11/2021 and correlated with chest CT dated 10/15/2014. The examination is degraded by portable technique and patient rotation. A right PICC line is in place. The tip of the catheter projects over the SVC. The heart is enlarged noting atherosclerotic calcification of the thoracic aorta. There is pulmonary vascular congestion. Bilateral airspace opacities are typical for pulmonary edema. There are layering pleural effusions with bibasilar consolidation. No pneumothorax is seen. The skeletal structures are osteopenic. The bony thorax is grossly intact. Advanced arthritic change is seen in the shoulders. IMPRESSION: 1. Cardiomegaly with evidence of congestive failure. 2. Bilateral airspace opacities are typical for pulmonary edema. Correlate clinically for evidence of superimposed pneumonia. 3. Layering pleural effusions with bibasilar consolidation. 4. A right PICC line is new from previous.. ACT 112: Negative or not required by law. Electronically signed by: Axel Cochran M.D. 06/20/2021 1:39 PM Medications Administered Home Medications apixaban 5 mg tablet (Eliquis) 5 mg PO BID 05/11/21 [History Confirmed 06/05/21] betamethasone dipropionate 0.05 % lotion 1 applic TOPICAL BID PRN 05/11/21 [History Confirmed 06/05/21] terazosin 2 mg capsule 2 mg PO AMHS 05/11/21 [History Confirmed 06/05/21] atorvastatin 40 mg tablet 40 mg PO HS #0 tab 05/17/21 [Rx Confirmed 06/05/21] lisinopril 5 mg tablet (Zestril) 5 mg PO QAM #0 tab 05/17/21 [Rx Confirmed 06/05/21] etanercept 50 mg/mL (1 mL) subcutaneous syringe (Enbrel) 50 mg SUBCUT WK #12 ml 05/22/21 [Rx Confirmed 06/05/21] acetaminophen 325 mg tablet (Tylenol) 650 mg PO Q4H PRN MDD 3 GRAMS/24 HOURS 06/05/21 [History Confirmed 06/05/21] baclofen 10 mg tablet 10 mg PO Q6H PRN 06/05/21 [History Confirmed 06/05/21] carvedilol 6.25 mg tablet 6.25 mg PO BID 06/05/21 [History Confirmed 06/05/21] cefazolin 2 gram/100 mL in 0.9 % sodium chloride intravenous solution 0 ml IV Q8H 06/05/21 [History Confirmed 06/05/21] docusate sodium 100 mg capsule 100 mg PO BIDM 06/05/21 [History Confirmed 06/05/21] ferrous sulfate 325 mg (65 mg iron) tablet 325 mg PO BIDM 06/05/21 [History Confirmed 06/05/21] lidocaine HCl 2 % mucosal solution (Lidocaine Viscous) 5 ml MUCOUS MEMBRANE ACHS 06/05/21 [History Confirmed 06/05/21] magnesium hydroxide 400 mg/5 mL oral suspension (Milk of Magnesia) 30 ml PO DAILY PRN 06/05/21 [History Confirmed 06/05/21] omega-3 fatty acids 1,000 mg capsule (Fish Oil Concentrate) 1,000 mg PO BIDM 06/05/21 [History Confirmed 06/05/21] ropinirole 2 mg tablet 2 mg PO Q12H 06/05/21 [History Confirmed 06/05/21] tramadol 50 mg tablet 50 - 100 mg PO Q4H PRN 06/05/21 [History Confirmed 06/05/21] Active Medications Furosemide (Furosemide 40 Mg/4 Ml Vial) 40 mg IV ONE ONE Stop: 06/20/21 20:01 Furosemide (Furosemide 40 Mg/4 Ml Vial) 40 mg IV ONE ONE Stop: 06/21/21 06:01 Magnesium Sulfate/Dextrose (Magnesium Sulfate / D5w) 1 gm in 100 mls @ 50 mls/hr IV Q2H SALEEM Stop: 06/20/21 18:59 Discontinued Medications Albuterol (Albut/Ipratrop 3mg/0.5mg Neb 3 Ml Vial) 12 ml NEB ONE ONE Stop: 06/20/21 13:09 Last Admin: 06/20/21 13:18 Dose: Not Given Documented by: [id number] ECG Additional Comments: Atrial fibrillation with rapid ventricular response Low voltage QRS Nonspecific T wave abnormality Abnormal ECG When compared with ECG of 01-FEB-2020 18:53, Atrial fibrillation has replaced Atrial flutter Nonspecific T wave abnormality has replaced inverted T waves in Inferior leads Nonspecific T wave abnormality, worse in Lateral leads Confirmed by Jd Marquez ([id number]) on 06/20/2021 1:25:51 PM Code Status & VTE Plan Code Status CODE: FULL VTE: SCD's, Eliquis Supervising Physician Co-Signing Physician Notes Attending addendum: I have physically seen this patient, have supervised the DONNIE's activities, and agree with the H&P unless as otherwise noted. Assessment and Plan: Pulmonary edema/pleural effusion/atrial fibrillation/cardiomyopathy/hypoalbuminemia- The patient will be admitted to telemetry for serial cardiac enzymes, serial EKG's, cardiac rhythm monitoring and a 2-D echocardiogram with Dopplers. Likely also third spacing due to low albumin Lasix 40 mg IV every 6 hours times total of 3 doses from the ED and overnight, then reassess in the a.m. Continue carvedilol 6.25 mg p.o. twice daily Metoprolol 5 mg IV every 4 hours as needed heart rate greater than 120 Continue Eliquis Consult cardiology Remaining orders and notations as noted PG Care Time/CCT Total # of Minutes Spent Total Time Spent with Patient: Total time spent is greater than 50% in coordination of care (as documented) at patient's floor/unit and/or counseling patient: Coding Level of Care Code 20577 Initial Inpt Care Lvl 3 Diagnoses Pulmonary edema J81.1 Cardiomyopathy I42.9 Afib I48.91 Cervical spine fracture S12.9XXA Joint contracture of left lower leg M24.562 Hypertension I10 Wheelchair bound Z99.3 Hypoalbuminemia E88.09 Restless leg syndrome G25.81 Anemia D64.9 S/P PICC central line placement Z95.828 Dyspnea R06.00 Pleural effusion J90
[2021-06-20] MEDS ORDERED: OPTIRAY 320 125ml IV ONE (15:29)
[2021-06-20] MEDS: MAGNESIUM SULFATE / D5W 1 GM/100 ML BAG IV SCH ×2 (16:02→17:16)
--- NOTE | 2021-06-20 16:20 | CT Scan Report ---
CHEST CTA for PULMONARY ARTERIES CT DOSE: 1020.32 mGy.cm HISTORY: Shortness of breath. TECHNIQUE: Multiaxial CT images of the chest were performed following the intravenous administration of contrast to evaluate the pulmonary arteries. Maximal intensity projection images were also obtaine d. A dose lowering technique was utilized adhering to the principles of ALARA. COMPARISON STUDY: Chest 06/20/2021. FINDINGS: Normal caliber thoracic aorta with no evidence for dissection. There are moderate bilateral pleural effusions and a moderate pericardial effusion. The pericardial effusion demonstrates a maxim al diameter of 2.2 cm. Limited views of the upper abdomen demonstrate retrograde opacification of the renal veins. This suggests underlying right-sided heart dysfunction. Nondiagnostic evaluation of the majority of the bilateral lower lobe segmental and subsegmental pulmonary arteries due to the motion artifact and inadequate opacification. The main and lobar pulmonary arteries are patent. Possible fi lling defect versus motion artifact within a subsegmental right upper lobe pulmonary artery on image 189. No fractures within the visualized osseous structures. Advanced degenerative changes within the bilateral shoulders. The right shoulder is only partially visualized on this study. Severe body wall edema is noted. A right PICC terminates in the distal SVC. Subcentimeter mediastinal and bilateral hi lar lymph nodes do not meet CT criteria for pathologic involvement. There are few prominent bilateral axillary lymph nodes with the largest on the right measuring 1.2 cm in short axis diameter. Normal c aliber esophagus. Consolidation within the bilateral lower lobes posteriorly are nonspecific but favo r compressive atelectasis from the pleural effusions. Narrowing of the bilateral lower lobe bronchi l ikely due to the compressive atelectasis. The heart is mildly enlarged. IMPRESSION: 1. No evidence for central pulmonary embolus. The distal pulmonary arteries are now well evaluated du e to the suboptimal contrast opacification and motion artifact. Possible filling defect versus motion artifact within a subsegmental right upper lobe pulmonary artery. A small pulmonary embolus is consi dered less likely but not entirely excluded. Consider follow-up lower extremity venous Doppler study to exclude the possibility of a deep vein thrombosis. 2. Moderate bilateral pleural fusions and a moderate pericardial effusion. 3. Consolidation within the lower lobes posteriorly is nonspecific but favors compressive atelectasis from the pleural effusions. A pneumonia could also have a similar appearance. 4. Severe body wall edema. 5. A few borderline enlarged bilateral axillary lymph nodes. 6. Mild cardiomegaly. ACT 112: Negative or not required by law. Electronically signed by: Jacky Morocho M.D. 06/20/2021 4:18 PM
[2021-06-20] MEDS ORDERED: NON-FORMULARY MEDICATION (Cefazolin In 0.9% Sod Chloride 2 gram/100 mL solution) IV SCH (16:36)
[2021-06-20] MEDS ORDERED: ALTEPLASE, RECOMBINANT 1 MG/ML 2ML VIAL INSTIL ONE (16:45)
[2021-06-20 16:48] LABS: Appearance Urine Clear (Clear); Bilirubin Urine Negative (Negative); Blood Urine Negative (Negative); Color Urine Yellow; Glucose Urine UA Negative (Negative); Ketones Urine Negative (Negative); Leukocyte Esterase Urine Negative (Negative); Nitrite Urine Negative (Negative); Protein Urine Negative (Negative); Urobilinogen Urine Negative (Negative)
[2021-06-20] MEDS: DOCUSATE SODIUM 100 MG CAP PO SCH (18:05)
[2021-06-20] MEDS: rOPINIRole HCL 1 MG TABLET PO SCH (18:05)
[2021-06-20] MEDS: FERROUS SULFATE 325 MG TAB PO SCH (18:05)
[2021-06-20] MEDS: ceFAZolin 2000MG 2,000 MG/15 ML SYR IV SCH (18:06)
[2021-06-20] MEDS: ALBUTEROL 0.083% NEBU SOLN 3 ML VIAL NEB SCH (19:50)
[2021-06-20] MEDS ORDERED: FUROSEMIDE 40 MG/4 ML VIAL IV ONE (20:00)
[2021-06-20] MEDS: TERAZOSIN HCL 1 MG CAP PO SCH (21:57)
[2021-06-20] MEDS: carvediloL 6.25 MG TAB PO SCH (21:58)
[2021-06-20] MEDS: ATORVASTATIN 40 MG TAB PO SCH (21:59)
[2021-06-21] MEDS: ALBUTEROL 0.083% NEBU SOLN 3 ML VIAL NEB SCH ×4 (00:05→19:51)
[2021-06-21] MEDS: ACETAMINOPHEN 325 MG TAB PO PRN ×3 (00:34→22:04)
[2021-06-21] MEDS: ceFAZolin 2000MG 2,000 MG/15 ML SYR IV SCH ×3 (02:10→17:33)
[2021-06-21] MEDS ORDERED: METOPROLOL TARTRATE 1 MG/ML VIAL IV PRN (05:05)
[2021-06-21] MEDS ORDERED: FUROSEMIDE 40 MG/4 ML VIAL IV ONE (06:00)
[2021-06-21] MEDS: rOPINIRole HCL 1 MG TABLET PO SCH ×2 (06:14→17:33)
[2021-06-21 07:58] LABS: Basophils # (auto) 0.02 K/uL (0-0.2); Basophils % (auto) 0.4 %; Eosinophils # (auto) 0.17 K/uL (0-0.5); Eosinophils % (auto) 3.2 %; Hematocrit (blood only) 27.3 % (42-52); Hemoglobin 8.6 g/dL (14.0-18.0); Immature Granulocytes # (auto) 0.01 K/uL (0.00-0.02); Immature Granulocytes % (auto) 0.2 %; Lymphocytes # (auto) 0.78 K/uL (1.2-3.4); Lymphocytes % (auto) 14.7 %; Mean Corpuscular Hemoglobin 24.5 pg (25-34); Mean Corpuscular Hgb Conc 31.5 g/dL (32-36); Mean Corpuscular Volume 77.8 fL (80-100); Mean Platelet Volume 8.2 fL (7.4-10.4); Monocytes # (auto) 0.35 K/uL (0.11-0.59); Monocytes % (auto) 6.6 %; Neutrophils # (auto) 3.96 K/uL (1.4-6.5); Neutrophils % (auto) 74.9 %; Platelet Count 301 K/uL (130-400); RDW Coefficient of Variation 18.9 % (11.5-14.5); RDW Standard Deviation 53.6 fL (36.4-46.3); Red Blood Count 3.51 M/uL (4.7-6.1); White Blood Count 5.29 K/uL (4.8-10.8)
[2021-06-21] MEDS ORDERED: METOPROLOL TARTRATE 1 MG/ML VIAL IV SCH (08:00)
[2021-06-21 08:30] LABS: BUN Creatinine Ratio 19.8 (10-20); Calcium 7.1 mg/dl (8.5-10.1); Est GFR (Non-African American) 122.5 ml/min; Magnesium 2.1 mg/dl (1.8-2.4); Potassium 3.2 mmol/L (3.5-5.1)
[2021-06-21] MEDS: DOCUSATE SODIUM 100 MG CAP PO SCH ×2 (08:54→17:33)
[2021-06-21] MEDS: FERROUS SULFATE 325 MG TAB PO SCH ×2 (08:54→17:33)
[2021-06-21] MEDS: TERAZOSIN HCL 1 MG CAP PO SCH ×2 (08:54→20:56)
[2021-06-21] MEDS: lisinopril 5 MG TAB PO SCH (08:54)
[2021-06-21] MEDS: carvediloL 6.25 MG TAB PO SCH ×2 (08:54→21:58)
[2021-06-21] MEDS ORDERED: POTASSIUM CHLORIDE CRTAB 20 MEQ TABCR PO STA ×3 (08:59→20:50)
[2021-06-21] MEDS: POTASSIUM CHLORIDE / WTR 10 MEQ/100 ML PLCT IV SCH ×4 (10:15→13:46)
--- NOTE | 2021-06-21 11:34 | Ultrasound Report ---
ULTRASOUND BILATERAL LOWER EXTREMITY VENOUS CLINICAL HISTORY: Abnormal chest CT. Possible pulmonary embolus. COMPARISON STUDY: No priors. TECHNIQUE: Real-time, grayscale, and color Doppler sonography of the deep veins of the right and left lower extremity was performed from the inguinal crease to the calf. Compression and augmentation wer e utilized. FINDINGS: There is no sonographic evidence of deep venous thrombosis identified in the right or left lower extremity. The common femoral, superficial femoral, and popliteal veins are patent and normally compressible bilaterally. The greater saphenous vein and the profunda femoris vein at the junction w ith the common femoral vein are clear in both legs. The visualized calf veins are patent bilaterally. IMPRESSION: There is no sonographic evidence of deep venous thrombosis identified in the right or lef t lower extremity. ACT 112: Negative or not required by law. Electronically signed by: Axel Cochran M.D. 06/21/2021 11:33 AM
[2021-06-21] MEDS ORDERED: ALBUT/IPRATROP 3MG/0.5MG NEB 3 ML VIAL NEB STA (11:58)
[2021-06-21] MEDS ORDERED: FUROSEMIDE 40 MG in SYRINGE 0 ML IV ONE ×2 (12:15→18:15)
--- NOTE | 2021-06-21 12:25 | Hospitalist Progress Note ---
Date of Service June 21, 2021 Assessment & Plan (1) Chronic diastolic CHF (congestive heart failure): Plan: Acute diastolic (congestive) heart failure Presents with acute pulmonary edema, pleural effusions, pericardial effusion, and acute respiratory failure with hypoxia. proBNP is elevated Improving now with IV diuretics Continue Lasix 40 mg IV twice daily today-urine output is good Replace electrolytes with potassium 40 mEq p.o. twice daily today Improve rate control with atrial fibrillation -Continue daily weights, strict I's and O's Echocardiogram here with mildly reduced EF at 45-50%, and with moderate pericardial effusion without tamponade (2) Pulmonary edema: Plan: Secondary to CHF as above (3) Acute respiratory failure with hypoxia: Plan: Continue to CHF as above BiPAP as needed Supplemental O2 as needed Diuresing Nebulizers CT angiogram the chest with possible small subsegmental right upper lobe PE-check lower extremity Dopplers of the legs-negative for DVT Is on Eliquis anyway for atrial fibrillation (4) Dyspnea: Plan: Secondary to pulmonary edema, and wheezing -Continue diuresis -Continue DuoNebs scheduled and gave an extra 1 as needed - BIPAP prn available Improving (5) Pericardial effusion: Plan: Moderate on echocardiogram after being noted on CT scan of the chest No evidence of tamponade Continue to diurese Will need follow-up echocardiogram in short interval Consult cardiology (6) Cardiomyopathy: Plan: ECHO 05/12/21- EF 50-55% severe hypokinesis to akinesis of the inferolateral wall and akinesis of the basal inferior wall Echo now similar except with moderate pericardial effusion and mildly reduced LVEF at 45-50%, with similar wall motion abnormalities -Magnesium and potassium repleted - Continue Carvedilol at 6.25 mg PO BID-rates are improved today - Metoprolol 5mg IV PRN for HR >120 (7) Bacteremia: Plan: Currently being treated for MSSA bacteremia with 6 weeks of Ancef-last dose is to be 06/25 [address] is in place-given significant swelling in right upper extremity-check Doppler right upper extremity and remove PICC likely after that He is growing gram-positive cocci in clusters in 1/2 blood culture sets this admission, however the rapid PCR test is negative for Staph aureus and this is likely a contaminant Repeat blood cultures (8) Pleural effusion: Plan: Multifactorial with low albumin and HF - Diurese as above and follow - no clinical need to drain at this time as he is also on Eliquis - continue to follow (9) Afib: Plan: As above, rates were fast upon arrival and now improving today - Diurese and replace magnesium and electrolytes - See if offloading volume assists - Continue respiratory and CV support -Restart home Eliquis Continue Coreg (10) Cervical spine fracture: Plan: 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 -He has been having progressive weakness in the bilateral upper extremities right greater than left he thinks related to the right upper extremity PICC line He has 3/5 strength proximally and 4/5 strength distally especially in the right upper extremity He has had inability to walk for a long time due to his rheumatoid arthritis and has lower extremity contractures, wheelchair-bound Will check MRI of the cervical spine given worsening upper extremity weakness Would be a highly complex surgery if needed decompression of the cervical spine as per orthopedic spine surgeon consultation last admission. He would require transfer to another facility. He is also very poor surgical candidate for anesthesia in general given his congestive heart failure, hypoxia (11) Joint contracture of left lower leg: Plan: Wheel chair bound and high fall risk - PT/OT - Multiple assist likey needed with transfers to prevent further injuries (12) Hypertension: Plan: Appears well controlled - As above vitaliy, follow hemodynamics (13) Hypoalbuminemia: Plan: Chronic poor nutrition state - Patient likely unable to care for himself sufficiently (14) Restless leg syndrome: Plan: Continue ropinirole (15) Anemia: Plan: Hemoglobin 8.6 and stable from previous, likely anemia of chronic disease Patient denies any blood or dark stools - Microcytic continue iron supplementation - follow with diuresing -Check iron studies, B12, folate in the morning -Follow CBC (16) S/P PICC central line placement: Plan: PICC chronic- cleaned intact - Reported difficulty flushing and with blood draw - activase and re-evaluate function We will likely remove this Checking right upper extremity Doppler (17) Hypokalemia: Plan: Replace with potassium chloride today Follow BMP and magnesium (18) Rheumatoid arthritis: Plan: Holding home etanercept while he has been treated for bacteremia (19) Wheelchair bound: Plan: As above (20) DVT prophylaxis: Plan: Eliquis Disposition-continued stay on medical floor with telemetry Admission and Anticipated Discharge Date Admission Date: June 20, 2021 Subjective Patient seen earlier in the day for significant respiratory distress. He was belly breathing lying flat on his back and was not mentating well. I set him up and he received nebulizer treatment, further Lasix, and within a few minutes he felt much better. He denied chest pain or abdominal pains. He feels weak in his arms right greater than left. He also reports swelling in the right arm that is been present for many weeks. He states that his arm has been weak on the right since he had his PICC line as he was told not to use that arm and so he has not. He says that the swelling has caused inflammation up into his neck which is why he is weak. He has been wheelchair or bedbound for a long time and has contractures in the lower extremities. He states overall he feels much better than yesterday. Telemetry with atrial fibrillation with rates in the 100s to 140s Had an 9 beat run of V. tach Review of Systems Review of Systems: All systems reviewed & are unremarkable except as noted in HPI & below Physical Exam Constitutional: WD/WN, vitals as above Eyes: + anicteric sclerae Neck: trachea midline, no thyromegaly Respiratory: + labored breathing and + tachypneic Auscultation: + crackles and + wheezes (Bilateral) Cardiovascular: Rate/Rhythm: + tachycardic and + irregularly irregular Heart Sounds: no murmur Chest (Breasts): Chest: normal inspection of chest Gastrointestinal (Abdomen): normal bowel sounds, soft, nontender, no hepatosplenomegaly Musculoskeletal: Extremities: + extremities abnormal to inspection (Flexion contractures in lower extremities), + abnormal strength (RUE 3/5 proximally and 4/5 in hand, LEs 3/5 bilaterally), no cyanosis and no clubbing Skin: + lesion (Left heel lateral with 2 cm superficial open wound, no erythema or drainage) Neurologic: awake Psychiatric: Orientation: alert, oriented to person, oriented to place and cooperative Lymphatic: no lymphedema Results & Data Results & Data ([facility]) Vital Signs (Past 12 Hours) Vital Signs Temp Pulse Pulse Resp BP BP Pulse Ox 06/21/21 12:13 92 H 20 97 06/21/21 11:43 36.3 C L 103 H 24 113/73 100 06/21/21 08:00 104 H 06/21/21 07:41 96 H 20 98 06/21/21 07:33 37.5 C 99 H 16 112/76 98 06/21/21 05:13 120 H 137/113 H 06/21/21 04:49 118 H 119/74 06/21/21 03:59 36.8 C 99 H 22 138/84 93 Laboratory Results 06/21/21 06/21/21 06/21/21 Range/Units 07:23 07:23 03:57 WBC 5.29 (4.8-10.8) K/uL RBC 3.51 L (4.7-6.1) M/uL Hgb 8.6 L (14.0-18.0) g/dL Hct 27.3 L (42-52) % MCV 77.8 L (80-100) fL MCH 24.5 L (25-34) pg MCHC 31.5 L (32-36) g/dL RDW Std Deviation 53.6 H (36.4-46.3) fL RDW Coeff of Jayjay 18.9 H (11.5-14.5) % Plt Count 301 (130-400) K/uL MPV 8.2 (7.4-10.4) fL Immature Gran % (Auto) 0.2 % Neut % (Auto) 74.9 % Lymph % (Auto) 14.7 % [place] % (Auto) 6.6 % Eos % (Auto) 3.2 % Baso % (Auto) 0.4 % Neut # (Auto) 3.96 (1.4-6.5) K/uL Lymph # (Auto) 0.78 L (1.2-3.4) K/uL [place] # (Auto) 0.35 (0.11-0.59) K/uL Eos # (Auto) 0.17 (0-0.5) K/uL Baso # (Auto) 0.02 (0-0.2) K/uL Immature Gran # (Auto) 0.01 (0.00-0.02) K/uL Sodium 134 L (136-145) mmol/L Potassium 3.2 L (3.5-5.1) mmol/L Chloride 102 (98-107) mmol/L Carbon Dioxide 27 (21-32) mmol/L Anion Gap 6.0 (3-11) BUN 8 (7-18) mg/dl Creatinine 0.41 L (0.6-1.4) mg/dl Est Cr Clr Drug Dosing 183.0 ml/min Est GFR ( Amer) 142.0 ml/min Est GFR (Non-Af Amer) 122.5 ml/min BUN/Creatinine Ratio 19.8 (10-20) Glucose 98 (70-99) mg/dl Calcium 7.1 L (8.5-10.1) mg/dl Magnesium 2.1 (1.8-2.4) mg/dl Nasal Screen MRSA (PCR) Negative (Negative) Bld Cult Staph aureus PCR (Negative) Blood Culture MRSA PCR (Negative) 06/20/21 Range/Units 11:45 WBC (4.8-10.8) K/uL RBC (4.7-6.1) M/uL Hgb (14.0-18.0) g/dL Hct (42-52) % MCV (80-100) fL MCH (25-34) pg MCHC (32-36) g/dL RDW Std Deviation (36.4-46.3) fL RDW Coeff of Jayjay (11.5-14.5) % Plt Count (130-400) K/uL MPV (7.4-10.4) fL Immature Gran % (Auto) % Neut % (Auto) % Lymph % (Auto) % [place] % (Auto) % Eos % (Auto) % Baso % (Auto) % Neut # (Auto) (1.4-6.5) K/uL Lymph # (Auto) (1.2-3.4) K/uL [place] # (Auto) (0.11-0.59) K/uL Eos # (Auto) (0-0.5) K/uL Baso # (Auto) (0-0.2) K/uL Immature Gran # (Auto) (0.00-0.02) K/uL Sodium (136-145) mmol/L Potassium (3.5-5.1) mmol/L Chloride (98-107) mmol/L Carbon Dioxide (21-32) mmol/L Anion Gap (3-11) BUN (7-18) mg/dl Creatinine (0.6-1.4) mg/dl Est Cr Clr Drug Dosing ml/min Est GFR ( Amer) ml/min Est GFR (Non-Af Amer) ml/min BUN/Creatinine Ratio (10-20) Glucose (70-99) mg/dl Calcium (8.5-10.1) mg/dl Magnesium (1.8-2.4) mg/dl Nasal Screen MRSA (PCR) (Negative) Bld Cult Staph aureus PCR Negative (Negative) Blood Culture MRSA PCR Negative (Negative) PG Care Time/CCT Total # of Minutes Spent Total Time Spent with Patient: Total time spent is greater than 50% in coordination of care (as documented) at patient's floor/unit and/or counseling patient: Coding Level of Care Code 94590 Subseq Hosp Care Lvl 3 Diagnoses Pulmonary edema J81.1 Dyspnea R06.00 Cardiomyopathy I42.9 Pleural effusion J90 Afib I48.91 Cervical spine fracture S12.9XXA Joint contracture of left lower leg M24.562 Hypertension I10 Wheelchair bound Z99.3 Hypoalbuminemia E88.09 Restless leg syndrome G25.81 Anemia D64.9 S/P PICC central line placement Z95.828 Hypokalemia E87.6 Bacteremia R78.81 Chronic diastolic CHF (congestive heart failure) I50.32 DVT prophylaxis Z29.9 Rheumatoid arthritis M06.9 Rheumatoid arthritis location: unspecified site Rheumatoid factor presence: unspecified presence Pericardial effusion I31.3 Acute respiratory failure with hypoxia J96.01 (1) Rheumatoid arthritis Rheumatoid arthritis location: unspecified site Rheumatoid factor presence: unspecified presence Qualified Code(s): M06.9 - Rheumatoid arthritis, unspecified
[2021-06-21] MEDS: APIXABAN 5 MG TABLET PO SCH ×2 (13:10→20:55)
--- NOTE | 2021-06-21 17:50 | XCELERA ---
[id number]
[2021-06-21] MEDS: traMADol HCL 50 MG TABLET PO PRN (20:48)
[2021-06-21] MEDS: ATORVASTATIN 40 MG TAB PO SCH (20:56)
--- NOTE | 2021-06-21 21:22 | Magnetic Resonance Report ---
CERVICAL SPINE MRI HISTORY: odontoid fracture,upper extremity weakness R>L TECHNIQUE: Multiplanar multisequence MRI of the cervical spine was performed without the use of contr ast. COMPARISON STUDY: Cervical spine CT 05/11/2021 and cervical spine MRI 05/12/2021. FINDINGS: Bilateral pleural effusions are partially imaged on this study. This is better appreciated on the recent chest CTA. There is mild motion artifact. There is redemonstration of the chronic nondi splaced type II odontoid fracture. There is prevertebral edema from the C1-C4 levels, unchanged. Huan a within the muscles posterior to the neck has progressed in the interval. There is also progressive edema within the C1 and C2 vertebral bodies most pronounced on the left. There is 2 mm of anterolisth esis placement of the nonunited odontoid process in relation to the odontoid base. This results in mo derate to severe central canal narrowing at the C1 level with mild cord deformity. There are old mild superior endplate compression deformities at T1 and T3, unchanged. The C1-C2 interval remains intact . Mild disc space narrowing throughout the majority of the cervical spine. C2-C3: No significant central canal narrowing. There is mild right and moderate left neural foraminal narrowing. C3-C4: Small broad-based posterior disc osteophyte complex resulting in mild central canal narrowing. There is moderate right and severe left neural foraminal narrowing. C4-C5: Small broad-based posterior disc osteophyte complex asymmetric to the left resulting in mild c entral canal and moderate bilateral neural foraminal narrowing. C5-C6: Small broad-based posterior disc osteophyte complex with a small left paracentral focal disc p rotrusion, unchanged. This abuts and slightly deforms the left anterior cord. There is also moderate right and severe left neural foraminal narrowing. C6-C7: Small broad-based posterior disc osteophyte complex resulting in mild central canal narrowing. There is moderate right and severe left neural foraminal narrowing. C7-T1: No significant central canal or neural foraminal narrowing. IMPRESSION: 1. 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 This is consistent with an uns table fracture. There remains mild anterior displacement of the odontoid tip resulting in moderate to severe central canal narrowing at the C1 level. No marrow edema identified within the cervical spina l cord at this time. 2. Progressive marrow edema at the C1-C2 levels. This is nonspecific and could be due to the chronic instability. No definite acute fractures identified. 3. Progressive soft tissue edema within the posterior muscles of the neck suggests a muscular strain. 4. No change in the mild anterior prevertebral edema from C1 through C4. 5. Additional degenerative changes as described above. 6. Old mild superior endplate compression fractures at T1 and T3 are again noted. ACT 112: Negative or not required by law. Electronically signed by: Jacky Morocho M.D. 06/21/2021 9:21 PM
[2021-06-21] MEDS ORDERED: METOPROLOL TARTRATE 1 MG/ML VIAL IV STA (22:45)
[2021-06-22] MEDS: ALBUTEROL 0.083% NEBU SOLN 3 ML VIAL NEB SCH ×4 (00:25→19:13)
[2021-06-22] MEDS: traMADol HCL 50 MG TABLET PO PRN ×3 (00:42→18:18)
[2021-06-22] MEDS: ceFAZolin 2000MG 2,000 MG/15 ML SYR IV SCH ×3 (02:45→18:05)
[2021-06-22] MEDS: rOPINIRole HCL 1 MG TABLET PO SCH ×2 (06:14→18:04)
[2021-06-22 06:27] LABS: Basophils # (auto) 0.02 K/uL (0-0.2); Basophils % (auto) 0.4 %; Eosinophils # (auto) 0.33 K/uL (0-0.5); Eosinophils % (auto) 6.1 %; Hemoglobin 8.7 g/dL (14.0-18.0); Lymphocytes # (auto) 0.83 K/uL (1.2-3.4); Lymphocytes % (auto) 15.5 %; Mean Corpuscular Hemoglobin 24.2 pg (25-34); Mean Corpuscular Hgb Conc 31.1 g/dL (32-36); Mean Platelet Volume 8.2 fL (7.4-10.4); Monocytes # (auto) 0.26 K/uL (0.11-0.59); Monocytes % (auto) 4.8 %; Neutrophils # (auto) 3.93 K/uL (1.4-6.5); Neutrophils % (auto) 73.2 %; Platelet Count 278 K/uL (130-400); RDW Coefficient of Variation 18.8 % (11.5-14.5); RDW Standard Deviation 53.9 fL (36.4-46.3); Red Blood Count 3.59 M/uL (4.7-6.1); White Blood Count 5.37 K/uL (4.8-10.8)
[2021-06-22 07:07] LABS: Alanine Aminotransferase < 6 U/L (12-78); Albumin Level 1.6 gm/dl (3.4-5.0); Aspartate Aminotransferase 16 U/L (15-37); BUN Creatinine Ratio 24.6 (10-20); Blood Urea Nitrogen 10 mg/dl (7-18); Calcium 7.2 mg/dl (8.5-10.1); Carbon Dioxide 27 mmol/L (21-32); Chloride 101 mmol/L (98-107); Est GFR (Non-African American) 122.5 ml/min; Glucose 87 mg/dl (70-99); Magnesium 1.8 mg/dl (1.8-2.4); Phosphorus 2.9 mg/dl (2.5-4.9); Potassium 3.9 mmol/L (3.5-5.1); Sodium 132 mmol/L (136-145)
[2021-06-22 07:14] LABS: Albumin Globulin Ratio 0.4 (0.9-2); Alkaline Phosphatase 79 U/L (45-117); Bilirubin,Total 0.5 mg/dl (0.2-1); Globulin 3.6 gm/dl (2.5-4.0); Iron 14 mcg/dl (35-175); Total Iron Binding Capacity 169 mcg/dl (250-450); Total Protein 5.2 gm/dl (6.4-8.2); Transferrin 126 mg/dl (200-360); Transferrin Percent Saturation 8 % (20-50)
[2021-06-22 07:38] LABS: Folate (Folic Acid) 6.7 ng/ml (>5.38)
--- NOTE | 2021-06-22 08:31 | Ultrasound Report ---
RIGHT UPPER EXTREMITY VENOUS DOPPLER HISTORY: Right arm edema, r/o DVT,PICC line COMPARISON STUDY: None. FINDINGS: The right internal jugular vein is patent. There is normal flow within the right subclavian vein. There is normal flow and compressibility within the right axillary, basilic, brachial, radial, ulnar, and visualized cephalic veins. A right PICC is identified within the cephalic vein. IMPRESSION: No DVT within the right upper extremity. ACT 112: Negative or not required by law. Electronically signed by: Jacky Morocho M.D. 06/22/2021 8:30 AM
[2021-06-22] MEDS ORDERED: POTASSIUM CHLORIDE CRTAB 20 MEQ TABCR PO STA (08:46)
[2021-06-22] MEDS ORDERED: FUROSEMIDE 40 MG in SYRINGE 0 ML IV ONE (09:00)
[2021-06-22] MEDS ORDERED: MAGNESIUM SULFATE / D5W 1 GM/100 ML BAG IV ONE (09:00)
[2021-06-22] MEDS: DOCUSATE SODIUM 100 MG CAP PO SCH ×2 (09:23→18:04)
[2021-06-22] MEDS: FERROUS SULFATE 325 MG TAB PO SCH ×2 (09:23→18:05)
[2021-06-22] MEDS: carvediloL 6.25 MG TAB PO SCH (09:24)
[2021-06-22] MEDS: lisinopril 5 MG TAB PO SCH (09:24)
[2021-06-22] MEDS: TERAZOSIN HCL 1 MG CAP PO SCH ×2 (09:25→19:45)
[2021-06-22] MEDS: APIXABAN 5 MG TABLET PO SCH ×2 (09:25→19:45)
--- NOTE | 2021-06-22 12:35 | Cardiology Consultation ---
Date of Consultation June 22, 2021 Assessment & Plan (1) Pericardial effusion: -moderate effusion on current study without echocardiographic signs of tamponade. -etiology uncertain. -recheck limited echocardiogram in several days. (2) Afib: -ventricular response under borderline control. -continue carvedilol and Eliquis. -could consider increasing carvedilol dose if blood pressure allows. (3) Cardiomyopathy: -borderline left ventricular ejection fraction 45-50%. -essentially unchanged from echocardiogram performed in May. -continue carvedilol and lisinopril. History of Present Illness Attending Physician: Lesley Collins MD History of Present Illness Mr. Dailey is a 66-year-old male admitted on June 20 with profound shortness of breath. An echocardiogram noted a moderate pericardial effusion, therefore, this consultation was ordered. Of note, the patient was seen in consultation last month by Dr. Davis. The patient was in his usual state of health until the day of presentation. The patient had been working with his discharge specialist reposition himself in bed. He became profoundly short of breath and was sent to the emergency room for further care. On arrival here, patient was hypoxic and placed on a BiPAP mask. He received a 1 hour nebulizer treatment. The patient was noted to be in atrial fibrillation with a rapid ventricular response. An echocardiogram performed yesterday and interpreted by Dr. Marquez noted borderline left ventricular systolic dysfunction with ejection fraction 45-50%. There were inferior and septal wall motion abnormalities. There was evidence of moderate left ventricular hypertrophy and a moderate-sized circumferential pericardial effusion without echocardiographic signs of tamponade. The patient was hospitalized here from May 12 through the with methicillin sensitive Staph aureus bacteremia. The patient receive 6 weeks of Ancef to treat possible endocarditis. No transesophageal echocardiogram was performed due to his history of in a cervical fracture. The patient does carry history of paroxysmal atrial dysrhythmias. 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 Fortunately, with control of his ventricular response, his left ventricular systolic function normalized. Currently, patient is resting comfortably in bed without complaints. Past medical and surgical history 1. Hypertension 2. Moderate LVH 3. Paroxysmal atrial fibrillation/flutter-January 2020 4. 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 Chronic pain syndrome 6. Rheumatoid arthritis 7. Wheelchair bound 8. Odontoid cervical spine fracture 9. Lower extremity contractures Social history Resident at [facility] No tobacco alcohol Family history Noncontributory Review of systems A 10 review systems was negative except for that described above. Allergies Allergy/AdvReac Type Severity Reaction Status Date / Time No Known Allergies Allergy Verified 06/20/21 15:11 Home Medications Medication Instructions Recorded Confirmed Type betamethasone dipropionate 0.05 % 1 applic TOPICAL BID PRN 05/11/21 06/20/21 History lotion terazosin 2 mg capsule 2 mg PO AMHS 05/11/21 06/20/21 History atorvastatin 40 mg tablet 40 mg PO HS #0 tab 05/17/21 06/20/21 Rx lisinopril 5 mg tablet (Zestril) 5 mg PO QAM #0 tab 05/17/21 06/20/21 Rx etanercept 50 mg/mL (1 mL) 50 mg SUBCUT WK #12 ml 05/22/21 06/20/21 Rx subcutaneous syringe (Enbrel) acetaminophen 325 mg tablet 650 mg PO Q4H PRN MDD 3 GRAMS/24 06/05/21 06/20/21 History (Tylenol) HOURS baclofen 10 mg tablet 10 mg PO Q6H PRN 06/05/21 06/20/21 History carvedilol 6.25 mg tablet 6.25 mg PO BID 06/05/21 06/20/21 History cefazolin 2 gram/100 mL in 0.9 % 50 ml IV Q8H 06/05/21 06/20/21 History sodium chloride intravenous solution docusate sodium 100 mg capsule 100 mg PO BIDM 06/05/21 06/20/21 History ferrous sulfate 325 mg (65 mg 325 mg PO BIDM 06/05/21 06/20/21 History iron) tablet lidocaine HCl 2 % mucosal solution 5 ml MUCOUS MEMBRANE ACHS 06/05/21 06/20/21 History (Lidocaine Viscous) magnesium hydroxide 400 mg/5 mL 30 ml PO DAILY PRN 06/05/21 06/20/21 History oral suspension (Milk of Magnesia) omega-3 fatty acids 1,000 mg 1,000 mg PO BIDM 06/05/21 06/20/21 History capsule (Fish Oil Concentrate) ropinirole 2 mg tablet 2 mg PO Q12H 06/05/21 06/20/21 History tramadol 50 mg tablet 50 - 100 mg PO Q4H PRN 06/05/21 06/20/21 History albuterol sulfate 2.5 mg INHALATION Q8 PRN 06/20/21 06/20/21 History multivitamin 1 tab PO DAILY 06/20/21 06/20/21 History apixaban 5 mg tablet (Eliquis) 5 mg PO BID 06/21/21 06/21/21 History Patient History Medical History (Updated 06/21/21 @ 21:22 by Lesley Collins MD) Acute respiratory failure with hypoxemia Acute respiratory failure with hypoxia Atrial flutter Cardiomyopathy Cervical spine fracture Chronic diastolic CHF (congestive heart failure) Chronic neck pain History of cardioversion Homeless single person Hx of fracture of leg left - not current Hypertension Joint contracture of left lower leg Joint contracture of right lower leg Odontoid fracture Pneumonia Rheumatoid arthritis Thoracic vertebral fracture Surgical History (Updated 06/20/21 @ 15:11 by CARRIE Hernandez) History of tooth extraction Family History Father Family history of diabetes mellitus Denies family history of Ovarian cancer Prostate cancer Myocardial infarction Breast cancer Colorectal cancer Social History Smoking Status: Unknown if ever smoked Tobacco Type: Cigarettes Age Started Using Tobacco: 16; Age Quit Using Tobacco: 50; packs per day: 1; Years Smoked: 34; Cigarettes Per Day: 20; Number of Years Since Quit: 15; Second Hand Exposure: No; Hx Alcohol Use: No Hx Substance Use: No Preferred Language: Yi Communication Ability: Effective Visual Impairment: No Limitations Hearing Ability: Normal 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 HEENT exam is negative. Neck is supple with full carotid upstrokes. No obvious bruits. Jugular venous pressure is flat at 45. No thyromegaly. Cardiovascular exam reveals an irregular regular rhythm with distant heart sounds. No obvious murmurs. Lungs note decreased breath sounds at the bases but no rales, rhonchi or wheezes. Abdomen is soft and nontender without bruits. Extremities reveal intact radial artery pulses bilaterally. There is no peripheral edema. Results & Data ([facility]) Vital Signs (Past 12 Hours) Vital Signs Temp Pulse Resp BP Pulse Ox 06/22/21 11:36 36.3 C L 76 20 114/74 94 06/22/21 07:24 36.3 C L 128 H 22 109/84 93 06/22/21 07:05 102 H 20 98 06/22/21 04:15 36.4 C L 111 H 20 130/87 98 PG Care Time/CCT Total # of Minutes Spent Total Time Spent with Patient: Total time spent is greater than 50% in coordination of care (as documented) at patient's floor/unit and/or counseling patient: Coding Level of Care Code 56112 Initial Inpt Care Lvl 3 Diagnoses Pericardial effusion I31.3 Afib I48.91 Cardiomyopathy I42.9
--- NOTE | 2021-06-22 14:24 | Hospitalist Progress Note ---
Date of Service June 22, 2021 Assessment & Plan (1) Chronic diastolic CHF (congestive heart failure): Plan: Acute diastolic (congestive) heart failure Presents with acute pulmonary edema, pleural effusions, pericardial effusion, and acute respiratory failure with hypoxia. proBNP is elevated Improving now with IV diuretics-is weaned off oxygen to room air and breathing is less labored Continue Lasix 20 mg IV twice daily today-urine output is good Replace electrolytes with potassium and magnesium to keep greater than 4 and 2, respectively Improve rate control with atrial fibrillation-increase carvedilol to 12.5 mg p.o. twice daily -Continue daily weights, strict I's and O's, low-sodium diet Echocardiogram here with mildly reduced EF at 45-50%, and with moderate pericardial effusion without tamponade (2) Pulmonary edema: Plan: Secondary to CHF as above, improving clinically Check chest x-ray in the morning (3) Acute respiratory failure with hypoxia: Plan: Was on BiPAP initially and is now weaned down to room air Secondary to CHF also with witnessed apnea and obstruction/snoring in hospital, likely with ROSALBA add CPAP qhs and with naps-he is willing to try Supplemental O2 as needed to keep pulse ox greater than 92% Continue continue diuresing Nebulizers CT angiogram the chest with possible small subsegmental right upper lobe PE- checked lower extremity Dopplers of the legs-negative for DVT Is on Eliquis anyway for atrial fibrillation which would cover for even small PE (4) Pericardial effusion: Plan: Moderate on echocardiogram after being noted on CT scan of the chest No evidence of tamponade Continue to diurese Will need follow-up echocardiogram in short interval-plan for repeat echocardiogram on Thursday Consult cardiology appreciated If became tachycardic and hypotensive, would repeat echocardiogram stat (5) Cardiomyopathy: Plan: ECHO 05/12/21- EF 50-55% severe hypokinesis to akinesis of the inferolateral wall and akinesis of the basal inferior wall Echo now similar except with moderate pericardial effusion and mildly reduced LVEF at 45-50%, with similar wall motion abnormalities -Magnesium and potassium repleted - Continue Carvedilol but increase dose to 12.5 mg p.o. twice daily for improved rate control -Continue lisinopril 5 mg p.o. once daily - Metoprolol 5mg IV PRN for HR >120 (6) Bacteremia: Plan: Currently being treated for MSSA bacteremia with 6 weeks of Ancef-last dose is to be 06/[address] in [address]-given significant swelling in right upper extremity- checked Doppler right upper extremity-negative for DVT He is growing Staphylococcus species in 1/2 blood culture sets this admission, however the rapid PCR test is negative for Staph aureus and this is likely a co ntaminant Repeat blood cultures-no growth to date Okay to keep PICC line in for now as it is working well and has not caused a DVT despite the swelling in the RUE. (7) Pleural effusion: Plan: Multifactorial with low albumin and HF - Diurese as above and follow - no clinical need to drain at this time as he is also on Eliquis - continue to follow chest x-ray (8) Afib: Plan: As above, rates remain uncontrolled - Diurese and replace magnesium and electrolytes - See if offloading volume assists - Continue respiratory and CV support -Continue Eliquis Continue Coreg and increase to 12.5 mg p.o. 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 -He has been having progressive weakness in the bilateral upper extremities right greater than left he thinks related to the right upper extremity PICC line He has 3/5 strength proximally and 4/5 strength distally especially in the right upper extremity He has had inability to walk for a long time due to his rheumatoid arthritis and has lower extremity contractures, wheelchair-bound MRI of the cervical spine performed this admission given worsening upper extremi ty weakness-shows redemonstration of chronic nonunited type II odontoid fracture consistent with unstable fracture and mild anterior displacement of odontoid tip resulting in moderate to severe central canal narrowing at C1 level, progressive marrow edema at C1-C2 levels, and cervical spinal stenosis and neuroforaminal stenosis throughout the cervical spine. Would be a highly complex surgery if needed decompression of the cervical spine as per orthopedic spine surgeon consultation last admission. He would require transfer to another facility. He is also very poor surgical candidate for anes thesia in general given his congestive heart failure, hypoxia at this time. I discussed his case with orthopedic spine surgery who will see him tomorrow- most likely will recommend outpatient evaluation with spine surgeon at tertiary care facility. Patient is willing to wear the soft collar only with transfers movements but not at all times (10) Joint contracture of left lower leg: Plan: Wheel chair bound and high fall risk - PT/OT - Multiple assist likey needed with transfers to prevent further injuries (11) Hypertension: Plan: Appears well controlled - As above vitaliy, follow hemodynamics Continue lisinopril and Coreg (12) Hypoalbuminemia: Plan: Chronic poor nutrition state - Patient likely unable to care for himself sufficiently (13) Restless leg syndrome: Plan: Continue ropinirole (14) Anemia: Plan: Hemoglobin 8.7 and stable from previous, likely anemia of chronic disease, but iron studies also show transferrin saturation of only 8% B12 normal, folate borderline low normal Patient denies any blood or dark stools - continue iron supplementation orally and will also give 1 dose of Venofer 300 mg IV x1 -Start folic acid 1 mg p.o. once daily -Check Hemoccult stool -Follow CBC (15) S/P PICC central line placement: Plan: PICC placed 6 weeks ago for MSSA bacteremia Right upper extremity venous Doppler checked due to right upper extremity edema- negative for DVT The PICC line is working well as per IV team Keep in place until discharge from hospital His IV antibiotics will complete on 06/25 (16) Hypokalemia: Plan: Replace with potassium chloride along with IV Lasix, goal is 4.0 Follow BMP and magnesium (17) Rheumatoid arthritis: Plan: Holding home etanercept while being treated for bacteremia (18) Wheelchair bound: Plan: As above (19) DVT prophylaxis: Plan: Eliquis Disposition-continued stay on medical floor with telemetry, eventually back to [facility], but not medically stable at this time Admission and Anticipated Discharge Date Admission Date: June 20, 2021 Subjective Patient feels better today. He asked questions about his diagnosis of congestive heart failure. He continues to have weakness in the arms but is okay with leaving the PICC line in and knows that he is allowed to use the right arm. Discussed his PICC line care with the IV team and they state that it is working well. He is weaned off oxygen and does not feel short of breath. He is willing to try CPAP as he has witnessed apneas and snoring with sleeping. He is also willing to wear soft collar only for movement and transfers but will not wear it all the time. 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 Review of Systems Review of Systems: All systems reviewed & are unremarkable except as noted in HPI & below Physical Exam Constitutional: + ill appearing (Chronically ill-appearing) and average body habitus; no acute distress and not lethargic Eyes: + anicteric sclerae Neck: trachea midline, no thyromegaly Respiratory: normal respiratory effort; no cough Auscultation: + crackles (Bibasilar); no wheezes Cardiovascular: Rate/Rhythm: regular rate and + irregularly irregular Heart Sounds: no murmur Chest (Breasts): Chest: normal inspection of chest Gastrointestinal (Abdomen): normal bowel sounds, soft, nontender, no hepatosplenomegaly Musculoskeletal: Extremities: + extremities abnormal to inspection (Flexion contractures in lower extremities), + abnormal strength (RUE 3/5 proximally and 4/5 in hand, LEs 3/5 bilaterally), no cyanosis and no clubbing Skin: + lesion (Left heel lateral with 2 cm superficial open wound, no erythema or drainage) Neurologic: awake Psychiatric: Orientation: alert, oriented to person, oriented to place and cooperative Genitourinary: Davis catheter in place draining clear yellow urine Lymphatic: no lymphedema Results & Data Results & Data ([facility]) Vital Signs (Past 12 Hours) Vital Signs Temp Pulse Resp BP Pulse Ox 06/22/21 14:04 36.3 C L 107 H 20 126/81 92 06/22/21 13:05 88 18 91 06/22/21 11:36 36.3 C L 76 20 114/74 94 06/22/21 07:24 36.3 C L 128 H 22 109/84 93 06/22/21 07:05 102 H 20 98 06/22/21 04:15 36.4 C L 111 H 20 130/87 98 Laboratory Results 06/22/21 06/22/21 06/22/21 Range/Units 06:02 06:02 06:02 WBC 5.37 (4.8-10.8) K/uL RBC 3.59 L (4.7-6.1) M/uL Hgb 8.7 L (14.0-18.0) g/dL Hct 28.0 L (42-52) % MCV 78.0 L (80-100) fL MCH 24.2 L (25-34) pg MCHC 31.1 L (32-36) g/dL RDW Std Deviation 53.9 H (36.4-46.3) fL RDW Coeff of Jayjay 18.8 H (11.5-14.5) % Plt Count 278 (130-400) K/uL MPV 8.2 (7.4-10.4) fL Immature Gran % (Auto) 0.0 % Neut % (Auto) 73.2 % Lymph % (Auto) 15.5 % Cabell % (Auto) 4.8 % Eos % (Auto) 6.1 % Baso % (Auto) 0.4 % Neut # (Auto) 3.93 (1.4-6.5) K/uL Lymph # (Auto) 0.83 L (1.2-3.4) K/uL Cabell # (Auto) 0.26 (0.11-0.59) K/uL Eos # (Auto) 0.33 (0-0.5) K/uL Baso # (Auto) 0.02 (0-0.2) K/uL Immature Gran # (Auto) 0.00 (0.00-0.02) K/uL Sodium 132 L (136-145) mmol/L Potassium 3.9 D (3.5-5.1) mmol/L Chloride 101 (98-107) mmol/L Carbon Dioxide 27 (21-32) mmol/L Anion Gap 4.0 (3-11) BUN 10 (7-18) mg/dl Creatinine 0.41 L (0.6-1.4) mg/dl Est Cr Clr Drug Dosing 183.0 ml/min Est GFR ( Amer) 142.0 ml/min Est GFR (Non-Af Amer) 122.5 ml/min BUN/Creatinine Ratio 24.6 H (10-20) Glucose 87 (70-99) mg/dl Calcium 7.2 L (8.5-10.1) mg/dl Phosphorus 2.9 (2.5-4.9) mg/dl Magnesium 1.8 (1.8-2.4) mg/dl Iron 14 L (35-175) mcg/dl TIBC 169 L (250-450) mcg/dl Transferrin 126 L (200-360) mg/dl Transferrin % Sat 8 L (20-50) % Total Bilirubin 0.5 (0.2-1) mg/dl AST 16 (15-37) U/L ALT < 6 L (12-78) U/L Alkaline Phosphatase 79 (45-117) U/L Total Protein 5.2 L (6.4-8.2) gm/dl Albumin 1.6 L (3.4-5.0) gm/dl Globulin 3.6 (2.5-4.0) gm/dl Albumin/Globulin Ratio 0.4 L (0.9-2) Vitamin B12 498 (193-986) pg/ml Folate 6.70 (>5.38) ng/ml PG Care Time/CCT Total # of Minutes Spent Total Time Spent with Patient: Total time spent is greater than 50% in coordination of care (as documented) at patient's floor/unit and/or counseling patient: Coding Level of Care Code 00863 Subseq Hosp Care Lvl 3 Diagnoses Chronic diastolic CHF (congestive heart failure) I50.32 Pulmonary edema J81.1 Acute respiratory failure with hypoxia J96.01 Pericardial effusion I31.3 Cardiomyopathy I42.9 Bacteremia R78.81 Pleural effusion J90 Afib I48.91 Cervical spine fracture S12.9XXA Joint contracture of left lower leg M24.562 Hypertension I10 Hypoalbuminemia E88.09 Restless leg syndrome G25.81 Anemia D64.9 S/P PICC central line placement Z95.828 Hypokalemia E87.6 Rheumatoid arthritis M06.9 Rheumatoid arthritis location: unspecified site Rheumatoid factor presence: unspecified presence Wheelchair bound Z99.3 DVT prophylaxis Z29.9 (1) Rheumatoid arthritis Rheumatoid arthritis location: unspecified site Rheumatoid factor presence: unspecified presence Qualified Code(s): M06.9 - Rheumatoid arthritis, unspecified
[2021-06-22] MEDS ORDERED: IRON SUCROSE 300 MG in SODIUM CHLORIDE 0.9% 250 ML IV ONE (14:25)
[2021-06-22] MEDS: FUROSEMIDE 20 MG in SYRINGE 0 ML IV SCH (18:05)
[2021-06-22] MEDS: ATORVASTATIN 40 MG TAB PO SCH (19:45)
[2021-06-22] MEDS: carvediloL 12.5 MG TAB PO SCH (19:46)
[2021-06-23] MEDS: ALBUTEROL 0.083% NEBU SOLN 3 ML VIAL NEB SCH ×4 (01:18→20:15)
[2021-06-23] MEDS: ceFAZolin 2000MG 2,000 MG/15 ML SYR IV SCH ×3 (01:24→17:39)
[2021-06-23] MEDS: rOPINIRole HCL 1 MG TABLET PO SCH ×2 (05:12→17:40)
[2021-06-23] MEDS: traMADol HCL 50 MG TABLET PO PRN ×4 (05:13→21:23)
[2021-06-23 07:36] LABS: Basophils # (auto) 0.01 K/uL (0-0.2); Basophils % (auto) 0.2 %; Eosinophils # (auto) 0.25 K/uL (0-0.5); Eosinophils % (auto) 5.1 %; Hematocrit (blood only) 27.5 % (42-52); Hemoglobin 8.6 g/dL (14.0-18.0); Immature Granulocytes # (auto) 0.01 K/uL (0.00-0.02); Immature Granulocytes % (auto) 0.2 %; Lymphocytes # (auto) 0.68 K/uL (1.2-3.4); Mean Corpuscular Hemoglobin 24.5 pg (25-34); Mean Corpuscular Hgb Conc 31.3 g/dL (32-36); Mean Corpuscular Volume 78.3 fL (80-100); Mean Platelet Volume 8.2 fL (7.4-10.4); Monocytes # (auto) 0.22 K/uL (0.11-0.59); Monocytes % (auto) 4.5 %; Neutrophils # (auto) 3.69 K/uL (1.4-6.5); Platelet Count 270 K/uL (130-400); RDW Standard Deviation 54.9 fL (36.4-46.3); Red Blood Count 3.51 M/uL (4.7-6.1); White Blood Count 4.86 K/uL (4.8-10.8)
[2021-06-23 08:07] LABS: BUN Creatinine Ratio 44.5 (10-20); Blood Urea Nitrogen 15 mg/dl (7-18); Calcium 7.7 mg/dl (8.5-10.1); Carbon Dioxide 25 mmol/L (21-32); Chloride 99 mmol/L (98-107); Creatinine Clr Calc Pharmacy 220.7 ml/min; Est GFR (African American) > 150.0 ml/min; Est GFR (Non-African American) 132.3 ml/min; Glucose 82 mg/dl (70-99); Magnesium 1.6 mg/dl (1.8-2.4); Potassium 3.6 mmol/L (3.5-5.1); Sodium 131 mmol/L (136-145)
--- NOTE | 2021-06-23 08:19 | XRay Report ---
XR chest 1V portable HISTORY: 66 years-old Male Follow-up pleural effusions COMPARISON: CTA chest an chest radiograph 06/20/2021 TECHNIQUE: Portable AP view of the chest FINDINGS: Cardiomegaly with pulmonary edema. Right-sided PICC terminates within the expected location of the mi d SVC. No pneumothorax. Mildly decreased size of the layering pleural effusions with persistent bibas ilar consolidation. Degenerative changes of the shoulders and spine. IMPRESSION: 1. Cardiomegaly with unchanged pulmonary edema. 2. Mildly decreased size of the layering pleural effusions with persistent bibasilar consolidation. ACT 112: Negative or not required by law. The above report was generated using voice recognition software. It may contain grammatical, syntax o r spelling errors. Electronically signed by: Jose Reyes M.D. 06/23/2021 8:17 AM
[2021-06-23] MEDS ORDERED: IRON SUCROSE 300 MG in SODIUM CHLORIDE 0.9% 250 ML IV ONE (08:22)
[2021-06-23] MEDS: FOLIC ACID 1 MG TAB PO SCH (09:10)
[2021-06-23] MEDS: FERROUS SULFATE 325 MG TAB PO SCH ×2 (09:10→17:59)
[2021-06-23] MEDS: POTASSIUM CHLORIDE CRTAB 20 MEQ TABCR PO SCH ×2 (09:10→17:41)
[2021-06-23] MEDS: carvediloL 12.5 MG TAB PO SCH ×2 (09:11→21:19)
[2021-06-23] MEDS: TERAZOSIN HCL 1 MG CAP PO SCH ×2 (09:11→21:18)
[2021-06-23] MEDS: APIXABAN 5 MG TABLET PO SCH ×2 (09:11→21:18)
[2021-06-23] MEDS: lisinopril 5 MG TAB PO SCH (09:12)
[2021-06-23] MEDS: FUROSEMIDE 20 MG in SYRINGE 0 ML IV SCH ×2 (09:12→17:39)
[2021-06-23] MEDS: DOCUSATE SODIUM 100 MG CAP PO SCH ×2 (09:21→17:46)
[2021-06-23] MEDS: MAGNESIUM SULFATE / D5W 1 GM/100 ML BAG IV SCH ×2 (10:57→12:59)
--- NOTE | 2021-06-23 11:00 | Cardiology Progress Note ---
Date of Service June 23, 2021 Assessment & Plan (1) Pericardial effusion: Plan: -moderate effusion without echocardiographic signs of tamponade. -etiology uncertain. -recheck limited echocardiogram in several days. (2) Afib: Plan: -ventricular response at approximately 100 bpm. -agree with increased dose of carvedilol. -continue Eliquis. (3) Cardiomyopathy: Plan: -borderline left ventricular ejection fraction 45-50%. -essentially unchanged from May 2021. -continue carvedilol and lisinopril. Admission and Anticipated Discharge Date Admission Date: June 20, 2021 Subjective The patient is resting comfortably in bed without complaints of chest pain, dyspnea, or palpitations. Physical Exam Physical Exam: In general this is a well-developed well-nourished white male in no acute distress. HEENT exam is negative. Neck is supple with full carotid upstrokes. No obvious bruits. Jugular venous pressure is flat at 45. No thyromegaly. Cardiovascular exam reveals an irregular regular rhythm with distant heart sounds. No obvious murmurs. Lungs note decreased breath sounds at the bases but no rales, rhonchi or wheezes. Abdomen is soft and nontender without bruits. Extremities reveal intact radial artery pulses bilaterally. There is no peripheral edema. 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 PG Care Time/CCT Total # of Minutes Spent Total Time Spent with Patient: Total time spent is greater than 50% in coordin ation of care (as documented) at patient's floor/unit and/or counseling patient: Coding Level of Care Code 89425 Subseq Hosp Care Lvl 3 Diagnoses Pericardial effusion I31.3 Afib I48.91 Cardiomyopathy I42.9
--- NOTE | 2021-06-23 17:36 | Hospitalist Progress Note ---
Date of Service June 23, 2021 Assessment & Plan (1) Chronic diastolic CHF (congestive heart failure): Plan: Acute diastolic (congestive) heart failure Presents with acute pulmonary edema, pleural effusions, pericardial effusion, and acute respiratory failure with hypoxia. proBNP is elevated Improving now with IV diuretics-is weaned off oxygen to room air and breathing is less labored Weight is down 8 kg since admission, I's and O's are net -4.2 L Echocardiogram here with mildly reduced EF at 45-50%, and with moderate pericardial effusion without tamponade -Continue Lasix 20 mg IV twice daily today-urine output is good -Continue to replace electrolytes with potassium and magnesium to keep greater than 4 and 2, respectively -Improve rate control with atrial fibrillation-increase carvedilol again to 18.75 mg p.o. twice daily -Continue daily weights, strict I's and O's, low-sodium diet (2) Pulmonary edema: Plan: Secondary to CHF as above, improving clinically Chest x-ray with decreased pleural effusions and still with some pulmonary edema Weaned off O2 (3) Acute respiratory failure with hypoxia: Plan: Was on BiPAP initially and is now weaned down to room air Secondary to CHF also with witnessed apnea and obstruction/snoring in hospital, likely with ROSALBA add CPAP qhs and with naps-he is willing to try but cannot tolerate for very long periods Supplemental O2 as needed to keep pulse ox greater than 92% Continue diuresing Nebulizers as needed CT angiogram the chest with possible small subsegmental right upper lobe PE- checked lower extremity Dopplers of the legs-negative for DVT Is on Eliquis anyway for atrial fibrillation which would cover for even small PE (4) Pericardial effusion: Plan: Moderate on echocardiogram after being noted on CT scan of the chest No evidence of tamponade Continue to diurese Will need follow-up echocardiogram in short interval-plan for repeat limited echocardiogram on Thursday Consult cardiology appreciated If became tachycardic and hypotensive, would repeat echocardiogram stat (5) Cardiomyopathy: Plan: ECHO 05/12/21- EF 50-55% severe hypokinesis to akinesis of the inferolateral wall and akinesis of the basal inferior wall Echo now similar except with moderate pericardial effusion and mildly reduced LVEF at 45-50%, with similar wall motion abnormalities -Magnesium and potassium repleted again today - Continue Carvedilol but increase dose again to 18.75 mg p.o. twice daily for improved rate control -Continue lisinopril 5 mg p.o. once daily - Metoprolol 5mg IV PRN for HR >120 (6) Bacteremia: Plan: Currently being treated for MSSA bacteremia with 6 weeks of Ancef-last dose is to be 06/[address] in [address]-given significant swelling in right upper extremity- checked Doppler right upper extremity-negative for DVT Swelling has decreased in the right upper extremity with diuresis He is growing Staphylococcus species in 1/2 blood culture sets this admission, however the rapid PCR test is negative for Staph aureus and this is likely a contaminant Repeat blood cultures-no growth to date Okay to keep PICC line in for now as it is working well and has not caused a DVT despite the swelling in the RUE. (7) Pleural effusion: Plan: Multifactorial with low albumin and HF - Diurese -Decreasing on chest x-ray on 06/23 - no clinical need to drain at this time as he is also on Eliquis - continue to follow chest x-ray (8) Afib: Plan: As above, rates remain uncontrolled but improved in the 100s to 110s - Diurese and replace magnesium and electrolytes - See if offloading volume assists - Continue respiratory and CV support -Continue Eliquis -Continue Coreg and increase to 18.75 mg p.o. 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 -He has been having progressive weakness in the bilateral upper extremities right greater than left He has 3/5 strength proximally and 4/5 strength distally especially in the right upper extremity He has had inability to walk for a long time due to his rheumatoid arthritis and has lower extremity contractures, wheelchair-bound MRI of the cervical spine performed this admission given worsening upper extremity weakness-shows redemonstration of chronic nonunited type II odontoid fracture consistent with unstable fracture and mild anterior displacement of odontoid tip resulting in moderate to severe central canal narrowing at C1 level, progressive marrow edema at C1-C2 levels, and cervical spinal stenosis and neuroforaminal stenosis throughout the cervical spine. Would be a highly complex surgery if needed decompression of the cervical spine as per orthopedic spine surgeon consultation last admission. He would require transfer to another facility. He is also very poor surgical candidate for anesthesia in general given his congestive heart failure, hypoxia at this time. I discussed his case with orthopedic spine surgery who will see him tomorrow- most likely will recommend outpatient evaluation with spine surgeon at tertiary care facility. Patient is willing to wear the soft collar only with transfers movements but not at all times (10) Joint contracture of left lower leg: Plan: Wheel chair bound and high fall risk - PT/OT - Multiple assist likey needed with transfers to prevent further injuries (11) Hypertension: Plan: Appears well controlled - As above vitaliy, follow hemodynamics Continue lisinopril and Coreg (12) Hypoalbuminemia: Plan: Chronic poor nutrition state - Patient likely unable to care for himself sufficiently (13) Restless leg syndrome: Plan: Continue ropinirole (14) Anemia: Plan: Hemoglobin 8.6 and stable from previous, likely anemia of chronic disease as well as iron deficiency and borderline folate deficiency iron studies show transferrin saturation of only 8% B12 normal, folate borderline low normal Patient denies any blood or dark stools - continue iron supplementation orally and continue Venofer 300 mg IV daily x3 days-last day will be the morning of 06/24 -Started folic acid 1 mg p.o. once daily -Check Hemoccult stool-pending (15) S/P PICC central line placement: Plan: PICC placed 6 weeks ago for MSSA bacteremia Right upper extremity venous Doppler checked due to right upper extremity edema- negative for DVT The PICC line is working well as per IV team Keep in place until discharge from hospital His IV antibiotics will complete on 06/25 (16) Hypokalemia: Plan: Replace with potassium chloride along with IV Lasix, goal is 4.0 Follow BMP and magnesium (17) Rheumatoid arthritis: Plan: Holding home etanercept while being treated for bacteremia (18) Wheelchair bound: Plan: As above (19) Hypomagnesemia: Plan: Replace today with IV magnesium sulfate Follow magnesium level in the morning (20) Constipation: Plan: No bowel movement many days Add on senna, MiraLAX daily Discontinue p.o. ferrous sulfate as contributing to constipation and giving IV iron as above (21) DVT prophylaxis: Plan: Eliquis Disposition-continued stay on medical floor with telemetry, eventually back to [facility] facility, but not medically stable at this time Admission and Anticipated Discharge Date Admission Date: June 20, 2021 Subjective Pt concerned about the type of bed he is in and requests a bed with a remote that he can use to make the head of the bed go up and down. He has been weaned off oxygen and feels less short of breath. He also complains of constipation and is asking for something for this. He reports he wore the CPAP for short period last night but it was uncomfortable and he had trouble sleeping. Telemetry with atrial fibrillation with rates in the 100s to 110s Review of Systems Review of Systems: All systems reviewed & are unremarkable except as noted in HPI & below Physical Exam Constitutional: WD/WN, vitals as above + ill appearing (Chronically ill- appearing) and average body habitus; no acute distress and not lethargic Eyes: + anicteric sclerae Neck: trachea midline, no thyromegaly Respiratory: normal respiratory effort; no cough Auscultation: + crackles (Bibasilar) and + wheezes (A few scattered bilateral wheezes) Cardiovascular: Rate/Rhythm: + tachycardic and + irregularly irregular Heart Sounds: no murmur Extremities: + edema (1+ edema in legs and arms bilaterally, improved edema in RUE) Chest (Breasts): Chest: normal inspection of chest Gastrointestinal (Abdomen): normal bowel sounds, soft, nontender, no hepatosplenomegaly Musculoskeletal: Extremities: + extremities abnormal to inspection (Flexion contractures in lower extremities), + abnormal strength (RUE 3/5 proximally and 4/5 in hand, LEs 3/5 bilaterally), no cyanosis and no clubbing Skin: + lesion (Left heel lateral with 2 cm superficial open wound, no erythema or drainage) Neurologic: awake Psychiatric: Orientation: alert, oriented to person, oriented to place and cooperative Results & Data Results & Data ([facility]) Vital Signs (Past 12 Hours) Vital Signs Temp Pulse Resp BP Pulse Ox 06/23/21 15:14 36.6 C 90 20 114/64 97 06/23/21 13:45 91 H 18 94 06/23/21 07:13 106 H 20 93 06/23/21 07:03 36.8 C 110 H 20 131/78 98 Laboratory Results 06/23/21 06/23/21 Range/Units 07:20 07:20 WBC 4.86 (4.8-10.8) K/uL RBC 3.51 L (4.7-6.1) M/uL Hgb 8.6 L (14.0-18.0) g/dL Hct 27.5 L (42-52) % MCV 78.3 L (80-100) fL MCH 24.5 L (25-34) pg MCHC 31.3 L (32-36) g/dL RDW Std Deviation 54.9 H (36.4-46.3) fL RDW Coeff of Jayjay 19.0 H (11.5-14.5) % Plt Count 270 (130-400) K/uL MPV 8.2 (7.4-10.4) fL Immature Gran % (Auto) 0.2 % Neut % (Auto) 76.0 % Lymph % (Auto) 14.0 % [place] % (Auto) 4.5 % Eos % (Auto) 5.1 % Baso % (Auto) 0.2 % Neut # (Auto) 3.69 (1.4-6.5) K/uL Lymph # (Auto) 0.68 L (1.2-3.4) K/uL [place] # (Auto) 0.22 (0.11-0.59) K/uL Eos # (Auto) 0.25 (0-0.5) K/uL Baso # (Auto) 0.01 (0-0.2) K/uL Immature Gran # (Auto) 0.01 (0.00-0.02) K/uL Sodium 131 L (136-145) mmol/L Potassium 3.6 (3.5-5.1) mmol/L Chloride 99 (98-107) mmol/L Carbon Dioxide 25 (21-32) mmol/L Anion Gap 7.0 (3-11) BUN 15 (7-18) mg/dl Creatinine 0.34 L (0.6-1.4) mg/dl Est Cr Clr Drug Dosing 220.7 ml/min Est GFR ( Amer) > 150.0 ml/min Est GFR (Non-Af Amer) 132.3 ml/min BUN/Creatinine Ratio 44.5 H (10-20) Glucose 82 (70-99) mg/dl Calcium 7.7 L (8.5-10.1) mg/dl Magnesium 1.6 L (1.8-2.4) mg/dl PG Care Time/CCT Total # of Minutes Spent Total Time Spent with Patient: Total time spent is greater than 50% in coordination of care (as documented) at patient's floor/unit and/or counseling patient: Coding Level of Care Code 07930 Subseq Hosp Care Lvl 3 Diagnoses Chronic diastolic CHF (congestive heart failure) I50.32 Pulmonary edema J81.1 Acute respiratory failure with hypoxia J96.01 Pericardial effusion I31.3 Cardiomyopathy I42.9 Bacteremia R78.81 Pleural effusion J90 Afib I48.91 Cervical spine fracture S12.9XXA Joint contracture of left lower leg M24.562 Hypertension I10 Hypoalbuminemia E88.09 Restless leg syndrome G25.81 Anemia D64.9 S/P PICC central line placement Z95.828 Hypokalemia E87.6 Rheumatoid arthritis M06.9 Rheumatoid arthritis location: unspecified site Rheumatoid factor presence: unspecified presence Wheelchair bound Z99.3 DVT prophylaxis Z29.9 Hypomagnesemia E83.42 Constipation K59.00 (1) Rheumatoid arthritis Rheumatoid arthritis location: unspecified site Rheumatoid factor presence: unspecified presence Qualified Code(s): M06.9 - Rheumatoid arthritis, unspecified
[2021-06-23] MEDS ORDERED: POLYETHYLENE (MIRALAX) 17 GM PACK ONE (17:56)
[2021-06-23] MEDS: POLYETHYLENE (MIRALAX) 17 GM PACK PO SCH (19:22)
[2021-06-23] MEDS: ATORVASTATIN 40 MG TAB PO SCH (21:18)
[2021-06-23] MEDS: SENNA 8.6 MG TAB PO SCH (21:18)
[2021-06-24] MEDS: ALBUTEROL 0.083% NEBU SOLN 3 ML VIAL NEB SCH ×2 (01:35→07:41)
[2021-06-24] MEDS: ceFAZolin 2000MG 2,000 MG/15 ML SYR IV SCH ×3 (02:23→18:01)
[2021-06-24] MEDS: traMADol HCL 50 MG TABLET PO PRN ×3 (03:30→20:30)
[2021-06-24] MEDS: rOPINIRole HCL 1 MG TABLET PO SCH ×2 (06:53→18:02)
[2021-06-24 07:07] LABS: BUN Creatinine Ratio 48.2 (10-20); Calcium 7.5 mg/dl (8.5-10.1); Creatinine Clr Calc Pharmacy 208.4 ml/min; Est GFR (African American) 149.8 ml/min; Est GFR (Non-African American) 129.2 ml/min; Magnesium 2.1 mg/dl (1.8-2.4); Potassium 4.3 mmol/L (3.5-5.1)
[2021-06-24] MEDS ORDERED: IRON SUCROSE 300 MG in SODIUM CHLORIDE 0.9% 250 ML IV SCH (09:00)
[2021-06-24] MEDS ORDERED: carvediloL 6.25 MG TAB PO SCH (09:00)
[2021-06-24] MEDS: FUROSEMIDE 20 MG in SYRINGE 0 ML IV SCH ×2 (09:16→15:24)
[2021-06-24] MEDS: TERAZOSIN HCL 1 MG CAP PO SCH ×2 (09:18→20:29)
[2021-06-24] MEDS: APIXABAN 5 MG TABLET PO SCH ×2 (09:18→20:24)
[2021-06-24] MEDS: lisinopril 5 MG TAB PO SCH (09:19)
[2021-06-24] MEDS: SENNA 8.6 MG TAB PO SCH (09:19)
[2021-06-24] MEDS: POLYETHYLENE (MIRALAX) 17 GM PACK PO SCH (09:20)
[2021-06-24] MEDS: POTASSIUM CHLORIDE CRTAB 20 MEQ TABCR PO SCH ×2 (09:21→15:24)
[2021-06-24] MEDS: FOLIC ACID 1 MG TAB PO SCH (09:22)
[2021-06-24] MEDS: DOCUSATE SODIUM 100 MG CAP PO SCH ×2 (10:12→15:24)
[2021-06-24] MEDS ORDERED: ALBUTEROL 0.083% NEBU SOLN 3 ML VIAL NEB PRN (11:36)
--- NOTE | 2021-06-24 12:49 | Hospitalist Progress Note ---
Date of Service June 24, 2021 Assessment & Plan (1) Chronic diastolic CHF (congestive heart failure): Plan: Acute diastolic (congestive) heart failure Presents with acute pulmonary edema, pleural effusions, pericardial effusion, and acute respiratory failure with hypoxia. proBNP is elevated Improving now with IV diuretics-is weaned off oxygen to room air and breathing is less labored Weight is down 8 kg since admission, I's and O's are net -4.2 L Echocardiogram here with mildly reduced EF at 45-50%, and with moderate pericardial effusion without tamponade -Continue Lasix 20 mg IV twice daily today-urine output is good -Continue to replace electrolytes with potassium and magnesium to keep greater than 4 and 2, respectively -Improve rate control with atrial fibrillation-increase carvedilol again to 25 mg p.o. twice daily -Continue daily weights, strict I's and O's, low-sodium diet (2) Pulmonary edema: Plan: Secondary to CHF as above, improving clinically Chest x-ray with decreased pleural effusions and still with some pulmonary edema Weaned off O2 (3) Acute respiratory failure with hypoxia: Plan: Was on BiPAP initially and is now weaned down to room air Secondary to CHF also with witnessed apnea and obstruction/snoring in hospital, likely with ROSALBA add CPAP qhs and with naps-he is willing to try but cannot tolerate for very long periods Supplemental O2 as needed to keep pulse ox greater than 92% Continue diuresing Nebulizers as needed CT angiogram the chest with possible small subsegmental right upper lobe PE- checked lower extremity Dopplers of the legs-negative for DVT Is on Eliquis anyway for atrial fibrillation which would cover for even small PE (4) Pericardial effusion: Plan: Moderate on echocardiogram after being noted on CT scan of the chest No evidence of tamponade Continue to diurese Will need follow-up echocardiogram in short interval - plan for repeat limited echocardiogram today. Consult cardiology appreciated If became tachycardic and hypotensive, would repeat echocardiogram stat (5) Cardiomyopathy: Plan: ECHO 05/12/21- EF 50-55% severe hypokinesis to akinesis of the inferolateral wall and akinesis of the basal inferior wall Echo now similar except with moderate pericardial effusion and mildly reduced LVEF at 45-50%, with similar wall motion abnormalities -Magnesium and potassium repleted again today - Continue Carvedilol but increase dose again to 25 mg p.o. twice daily for improved rate control -Continue lisinopril 5 mg p.o. once daily - Metoprolol 5mg IV PRN for HR >120 (6) Bacteremia: Plan: Currently being treated for MSSA bacteremia with 6 weeks of Ancef-last dose is to be 06/[address] in [address]-given significant swelling in right upper extremity- checked Doppler right upper extremity-negative for DVT Swelling has decreased in the right upper extremity with diuresis Repeat blood cultures-no growth to date Okay to keep PICC line in for now as it is working well and has not caused a DVT despite the swelling in the RUE. 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 -He has been having progressive weakness in the bilateral upper extremities right greater than left He has 3/5 strength proximally and 4/5 strength distally especially in the right upper extremity He has had inability to walk for a long time due to his rheumatoid arthritis and has lower extremity contractures, wheelchair-bound MRI of the cervical spine performed this admission given worsening upper extremity weakness-shows redemonstration of chronic nonunited type II odontoid fracture consistent with unstable fracture and mild anterior displacement of odontoid tip resulting in moderate to severe central canal narrowing at C1 level, progressive marrow edema at C1-C2 levels, and cervical spinal stenosis and neuroforaminal stenosis throughout the cervical spine. Would be a highly complex surgery if needed decompression of the cervical spine as per orthopedic spine surgeon consultation last admission. He would require transfer to another facility. He is also very poor surgical candidate for anesthesia in general given his congestive heart failure, hypoxia at this time. Patient is willing to wear the soft collar only with transfers movements but not at all times (10) Joint contracture of left lower leg: Plan: Wheel chair bound and high fall risk - PT/OT - Multiple assist likey needed with transfers to prevent further injuries (11) Hypertension: Plan: Appears well controlled - As above vitaliy, follow hemodynamics Continue lisinopril and Coreg (12) Hypoalbuminemia: Plan: Chronic poor nutrition state - Patient likely unable to care for himself sufficiently (13) Restless leg syndrome: Plan: Continue ropinirole (14) Anemia: Plan: Hemoglobin 8.6 and stable from previous, likely anemia of chronic disease as well as iron deficiency and borderline folate deficiency iron studies show transferrin saturation of only 8% B12 normal, folate borderline low normal Patient denies any blood or dark stools - continue iron supplementation orally and continue Venofer 300 mg IV daily x3 days-last day will be the morning of 06/24 -Started folic acid 1 mg p.o. once daily -Check Hemoccult stool-pending (15) S/P PICC central line placement: Plan: PICC placed 6 weeks ago for MSSA bacteremia Right upper extremity venous Doppler checked due to right upper extremity edema- negative for DVT The PICC line is working well as per IV team Keep in place until discharge from hospital His IV antibiotics will complete on 06/25 (16) Hypokalemia: Plan: Replace with potassium chloride along with IV Lasix, goal is 4.0 Follow BMP and magnesium (17) Rheumatoid arthritis: Plan: Holding home etanercept while being treated for bacteremia (18) Wheelchair bound: Plan: As above (19) Hypomagnesemia: Plan: Replace today with IV magnesium sulfate Follow magnesium level in the morning (20) Constipation: Plan: No bowel movement many days Add on senna, MiraLAX daily Discontinue p.o. ferrous sulfate as contributing to constipation and giving IV iron as above (21) DVT prophylaxis: Plan: Eliquis Disposition-continued stay on medical floor with telemetry, eventually back to residential facility, but not medically stable at this time Admission and Anticipated Discharge Date Admission Date: June 20, 2021 Subjective Doing well today. Reports less shortness of breath. Still wearing some O2, but mostly for comfort. Reports no fevers/chills, chest pain, abdominal pain, nausea, or vomiting. Physical Exam Constitutional: WD/WN, vitals as above Eyes: EOM intact bilaterally; no conjunctival abnormality ENMT: external ear and nose normal, oropharynx normal Neck: trachea midline, no thyromegaly normal visual inspection Respiratory: normal respiratory effort, lungs clear to auscultation no respiratory distress Cardiovascular: RRR, no murmur, no edema Gastrointestinal (Abdomen): Inspection/Auscultation: abdomen normal to inspection; abdomen not distended Musculoskeletal: no cyanosis or clubbing, extremities motor strength 5/5 Skin: no rashes, warm and dry Neurologic: moves all extremities and awake Psychiatric: Orientation: alert, oriented to person and cooperative Results & Data Results & Data ([facility]) Vital Signs (Past 12 Hours) Vital Signs Temp Pulse Resp BP Pulse Ox 06/24/21 07:34 37.0 C 73 20 114/69 96 06/24/21 03:23 36.7 C 103 H 28 H 120/75 98 PG Care Time/CCT Total # of Minutes Spent Total Time Spent with Patient: Total time spent is greater than 50% in coordination of care (as documented) at patient's floor/unit and/or counseling patient: Coding Level of Care Code 64422 Subseq Hosp Care Lvl 2 Diagnoses Chronic diastolic CHF (congestive heart failure) I50.32 Pulmonary edema J81.1 Acute respiratory failure with hypoxia J96.01 Pericardial effusion I31.3 Cardiomyopathy I42.9 Bacteremia R78.81 Pleural effusion J90 Afib I48.91 Cervical spine fracture S12.9XXA Joint contracture of left lower leg M24.562 Hypertension I10 Hypoalbuminemia E88.09 Restless leg syndrome G25.81 Anemia D64.9 S/P PICC central line placement Z95.828 Hypokalemia E87.6 Rheumatoid arthritis M06.9 Rheumatoid arthritis location: unspecified site Rheumatoid factor presence: unspecified presence Wheelchair bound Z99.3 Hypomagnesemia E83.42 Constipation K59.00 DVT prophylaxis Z29.9 (1) Rheumatoid arthritis Rheumatoid arthritis location: unspecified site Rheumatoid factor presence: unspecified presence Qualified Code(s): M06.9 - Rheumatoid arthritis, unspecified
--- NOTE | 2021-06-24 14:28 | Orthopedic Consultation ---
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 This may contribute to his upper extremity weakness however it also could be an due to advanced deconditioning. Regardless any surgical intervention in this case would be of extreme risk. And certainly would have to recur at a tertiary care center. He is not interested in any surgery at this time. He would like to continue with physical therapy. Cervical soft collar is reasonable at this time. History of Present Illness Reason for Consultation: Cervical spine fracture with worsening upper extremity weakness Attending Physician: Chandler Alves MD History of Present Illness This is a 66-year-old male presents with multiple medical issues significant cardiac disease and status post bacteremia. He has known cervical spine disease with a type II odontoid fracture that demonstrates evidence of nonunion. He does have severe multilevel cervical spinal stenosis. He has worsening weakness to the upper extremities. He states this is occurred over the past several weeks. He believes it is largely due to deconditioning as he is not been out of bed or use his upper extremities. He denies any numbness or tingling in the arms. He denies any radicular pain. He denies any pain with range of motion of the cervical spine. Allergies Allergy/AdvReac Type Severity Reaction Status Date / Time No Known Allergies Allergy Verified 06/20/21 15:11 Home Medications Medication Instructions Recorded Confirmed Type betamethasone dipropionate 0.05 % 1 applic TOPICAL BID PRN 05/11/21 06/20/21 History lotion terazosin 2 mg capsule 2 mg PO AMHS 05/11/21 06/20/21 History atorvastatin 40 mg tablet 40 mg PO HS #0 tab 05/17/21 06/20/21 Rx lisinopril 5 mg tablet (Zestril) 5 mg PO QAM #0 tab 05/17/21 06/20/21 Rx etanercept 50 mg/mL (1 mL) 50 mg SUBCUT WK #12 ml 05/22/21 06/20/21 Rx subcutaneous syringe (Enbrel) acetaminophen 325 mg tablet 650 mg PO Q4H PRN MDD 3 GRAMS/24 06/05/21 06/20/21 History (Tylenol) HOURS baclofen 10 mg tablet 10 mg PO Q6H PRN 06/05/21 06/20/21 History carvedilol 6.25 mg tablet 6.25 mg PO BID 06/05/21 06/20/21 History cefazolin 2 gram/100 mL in 0.9 % 50 ml IV Q8H 06/05/21 06/20/21 History sodium chloride intravenous solution docusate sodium 100 mg capsule 100 mg PO BIDM 06/05/21 06/20/21 History ferrous sulfate 325 mg (65 mg 325 mg PO BIDM 06/05/21 06/20/21 History iron) tablet lidocaine HCl 2 % mucosal solution 5 ml MUCOUS MEMBRANE ACHS 06/05/21 06/20/21 History (Lidocaine Viscous) magnesium hydroxide 400 mg/5 mL 30 ml PO DAILY PRN 06/05/21 06/20/21 History oral suspension (Milk of Magnesia) omega-3 fatty acids 1,000 mg 1,000 mg PO BIDM 06/05/21 06/20/21 History capsule (Fish Oil Concentrate) ropinirole 2 mg tablet 2 mg PO Q12H 06/05/21 06/20/21 History tramadol 50 mg tablet 50 - 100 mg PO Q4H PRN 06/05/21 06/20/21 History albuterol sulfate 2.5 mg INHALATION Q8 PRN 06/20/21 06/20/21 History multivitamin 1 tab PO DAILY 06/20/21 06/20/21 History apixaban 5 mg tablet (Eliquis) 5 mg PO BID 06/21/21 06/21/21 History Patient History Medical History (Updated 06/23/21 @ 17:36 by Lesley Collins MD) Acute respiratory failure with hypoxemia Acute respiratory failure with hypoxia Atrial flutter Cardiomyopathy Cervical spine fracture Chronic diastolic CHF (congestive heart failure) Chronic neck pain History of cardioversion Homeless single person Hx of fracture of leg left - not current Hypertension Joint contracture of left lower leg Joint contracture of right lower leg Odontoid fracture Pneumonia Rheumatoid arthritis Thoracic vertebral fracture Surgical History (Updated 06/20/21 @ 15:11 by CARRIE Hernandez) History of tooth extraction Family History Father Family history of diabetes mellitus Denies family history of Ovarian cancer Prostate cancer Myocardial infarction Breast cancer Colorectal cancer Social History Smoking Status: Unknown if ever smoked Tobacco Type: Cigarettes Age Started Using Tobacco: 16; Age Quit Using Tobacco: 50; packs per day: 1; Years Smoked: 34; Cigarettes Per Day: 20; Number of Years Since Quit: 15; Second Hand Exposure: No; Hx Alcohol Use: No Hx Substance Use: No Preferred Language: Sinhala Communication Ability: Effective Visual Impairment: No Limitations Hearing Ability: Normal 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 Beliefs That Will Affect Care: None marital status: Single Current Living Situation: Jail current occupational status: unemployed How many Children do You have: 3 Feels Safe at Home: Yes Safety Concerns: Feels Safe At This Time Childhood Exposure to Second-Hand Smoke: Yes during the past year weight has: increased > 10 lbs Dental Care, Regularly: Yes Physical Activity Frequency: Does not Exercise Seatbelt Use: always Sunscreen Use: No Assistive Devices: Oxygen - at Night Physical Exam Physical Exam: On exam he does have active cervical range of motion with some limitation but no evidence of antalgia. He does exhibit severe weakness to the upper extremities he is able to grasp and extend his fingers but has 3/5 biceps triceps deltoids bilaterally. Sensory symmetric and intact. Results & Data ([facility]) Vital Signs (Past 12 Hours) Vital Signs Temp Pulse Resp BP Pulse Ox 06/24/21 07:34 37.0 C 73 20 114/69 96 06/24/21 03:23 36.7 C 103 H 28 H 120/75 98
--- NOTE | 2021-06-24 14:48 | XCELERA ---
[id number]
--- NOTE | 2021-06-24 15:34 | Cardiology Progress Note ---
Date of Service June 24, 2021 Assessment & Plan (1) Pericardial effusion: Plan: -today's echocardiogram notes a small, rather than moderate pericardial effusion. -etiology uncertain. -recheck limited echocardiogram as an outpatient. (2) Afib: Plan: -ventricular response at approximately 100 bpm. -carvedilol increased to 25 mg b.i.d.. -continue Eliquis. (3) Cardiomyopathy: Plan: -borderline left ventricular ejection fraction 45-50%. -essentially unchanged from May 2021. -continue carvedilol and lisinopril. Admission and Anticipated Discharge Date Admission Date: June 20, 2021 Subjective The patient is resting comfortably in bed without complaints of chest pain, dyspnea, or palpitations. Physical Exam Physical Exam: In general this is a well-developed well-nourished white male in no acute distress. HEENT exam is negative. Neck is supple with full carotid upstrokes. No obvious bruits. Jugular venous pressure is flat at 45. No thyromegaly. Cardiovascular exam reveals an irregular regular rhythm with distant heart sounds. No obvious murmurs. Lungs note decreased breath sounds at the bases but no rales, rhonchi or wheezes. Abdomen is soft and nontender without bruits. Extremities reveal intact radial artery pulses bilaterally. There is no peripheral edema. Results & Data ([facility]) Vital Signs (Past 12 Hours) Vital Signs Temp Pulse Resp BP Pulse Ox 06/24/21 15:08 36.7 C 104 H 20 116/71 98 06/24/21 07:34 37.0 C 73 20 114/69 96 Diagnostic Findings paid search marketing analyst notes atrial fibrillation with a ventricular response 100-120 beats per minute. Echocardiogram notes a decrease in the size of the pericardial effusion. PG Care Time/CCT Total # of Minutes Spent Total Time Spent with Patient: Total time spent is greater than 50% in coordination of care (as documented) at patient's floor/unit and/or counseling patient: Coding Level of Care Code 96676 Subseq Hosp Care Lvl 3 Diagnoses Pericardial effusion I31.3 Afib I48.91 Cardiomyopathy I42.9
[2021-06-24] MEDS: ATORVASTATIN 40 MG TAB PO SCH (20:25)
[2021-06-24] MEDS: carvediloL 25 MG TAB PO SCH (20:29)
[2021-06-25] MEDS: ceFAZolin 2000MG 2,000 MG/15 ML SYR IV SCH ×3 (01:33→17:20)
[2021-06-25] MEDS ORDERED: SODIUM CHLORIDE 0.9% 500 ML IV SCH (02:30)
[2021-06-25] MEDS: traMADol HCL 50 MG TABLET PO PRN ×2 (04:16→20:32)
[2021-06-25] MEDS: rOPINIRole HCL 1 MG TABLET PO SCH ×2 (05:40→17:18)
[2021-06-25 07:12] LABS: Hemoglobin 8.1 g/dL (14.0-18.0); Mean Corpuscular Hemoglobin 24.8 pg (25-34); Mean Corpuscular Hgb Conc 31.2 g/dL (32-36); Mean Corpuscular Volume 79.5 fL (80-100); Mean Platelet Volume 8.6 fL (7.4-10.4); Platelet Count 248 K/uL (130-400); RDW Coefficient of Variation 18.7 % (11.5-14.5); RDW Standard Deviation 54.5 fL (36.4-46.3); Red Blood Count 3.27 M/uL (4.7-6.1); White Blood Count 4.88 K/uL (4.8-10.8)
[2021-06-25 07:51] LABS: Blood Urea Nitrogen 16 mg/dl (7-18); Calcium 7.6 mg/dl (8.5-10.1); Carbon Dioxide 27 mmol/L (21-32); Chloride 97 mmol/L (98-107); Creatinine Clr Calc Pharmacy 270.5 ml/min; Est GFR (African American) > 150.0 ml/min; Est GFR (Non-African American) 139.3 ml/min; Glucose 81 mg/dl (70-99); Potassium 4.2 mmol/L (3.5-5.1); Sodium 130 mmol/L (136-145)
[2021-06-25] MEDS: POLYETHYLENE (MIRALAX) 17 GM PACK PO SCH (08:45)
[2021-06-25] MEDS: POTASSIUM CHLORIDE CRTAB 20 MEQ TABCR PO SCH ×2 (08:46→17:17)
[2021-06-25] MEDS: lisinopril 5 MG TAB PO SCH (08:47)
[2021-06-25] MEDS: TERAZOSIN HCL 1 MG CAP PO SCH ×2 (08:47→20:33)
[2021-06-25] MEDS: APIXABAN 5 MG TABLET PO SCH ×2 (08:47→20:31)
[2021-06-25] MEDS: SENNA 8.6 MG TAB PO SCH (08:47)
[2021-06-25] MEDS: FOLIC ACID 1 MG TAB PO SCH (08:48)
[2021-06-25] MEDS: carvediloL 25 MG TAB PO SCH ×2 (08:48→20:33)
[2021-06-25] MEDS: FUROSEMIDE 20 MG in SYRINGE 0 ML IV SCH ×2 (08:49→17:20)
[2021-06-25] MEDS: DOCUSATE SODIUM 100 MG CAP PO SCH ×2 (08:51→17:19)
--- NOTE | 2021-06-25 17:42 | Hospitalist Progress Note ---
Date of Service June 25, 2021 Assessment & Plan (1) Chronic diastolic CHF (congestive heart failure): Plan: - Acute diastolic CHF - presented with acute pulmonary edema, pleural effusions, pericardial effusions, and acute respiratory failure with hypoxia; proBNP александр vated - IMPROVING - weaned off O2 to RA however states O2 helps him feel less panicked - Continue to trend weight and I&O - continues to be a negative fluid balance - Echo - Jun - EF 45-50%; L ventricular systolic function borderline reduced; akinesis of the inferior base; small pericardial effusion - Continue Lasix 20 mg IV BID - renal function and vitals stable and will continue to monitor - Replete electrolytes as needed; continue to improve rate control - Continue increased Carvedilol at 25 mg BID - Daily weights, strict I&Os, low sodium diet (2) Pulmonary edema: Plan: - Pulmonary edema in the setting of likely rate related heart failure and CHF -- HRs are gradually improving into 90s-100s - Continue Lasix 20 mg IV BID and will assess labs on 06/27 - renal function remains intact and BP acceptable (3) Acute respiratory failure with hypoxia: Plan: - RESOLVED - initially on BiPAP and weaned on O2 (wearing for comfort); secondary to CHF -- Likely has ROSALBA - CPAP as tolerated - Continue to diurese; nebulizers PRN - CTA chest - possible small subsegmental RUL PE; no DVT on U/S - Continue Eliquis (4) Pericardial effusion: Plan: - Now small on repeat echo - will need follow-on echo in the short interval - No evidence of tamponade at this time - Continue diureses; if significant tachycardia and hypotensive - stat echo warranted - Cardiology following - appreciate input (5) Cardiomyopathy: Plan: - Echo - 24 June - EF 45-50%; L ventricular systolic function borderline reduced; akinesis of inferior base; small pericardial effusion (improved from 21 June) - Pulmonary status improved continuing to obtain stable rate control - Continue increased Carvedilol 25 mg PO BID; Lisinopril 5 mg daily (6) Bacteremia: Plan: - Currently on treatment for MSSA bacteremia x 6 weeks of Ancef - last dose is 06/25 - PICC line in place - no DVT found on U/S; will continue PICC until D/C (7) Pleural effusion: Plan: - Multifactorial with low albumin and HF - Diurese as above and follow; routine CXR (8) Afib: Plan: - As above; see if offloading volume assists with rate control - Diurese and monitor/replete electrolytes - Continue Eliquis, Coreg, and telemetry monitoring (9) Cervical spine fracture: Plan: - 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 - Evaluated by ortho - planning on conservative measures at this time; poor surgical candidate would need completed at tertiary care; soft collar with transfers and movements (10) Joint contracture of left lower leg: Plan: - Wheel chair bound and high fall risk - PT/OT - Multiple assist likely needed with transfers to prevent further injuries (11) Hypertension: Plan: - Appears well controlled - As above diurese, follow hemodynamics - Continue Lisinopril and Coreg (12) Hypoalbuminemia: Plan: - Chronic poor nutrition state - Patient likely unable to care for himself sufficiently (13) Restless leg syndrome: Plan: - Continue ropinirole (14) Anemia: Plan: - HGB stable at this point - likely anemia of chronic disease and RYAN; folate deficiency - Patient denies any blood or dark stools - Completed Venofer treatment (15) S/P PICC central line placement: Plan: - PICC placed 6 weeks ago for MSSA bacteremia - Right upper extremity venous Doppler checked due to right upper extremity edema-negative for DVT - The PICC line is working well as per IV team - Keep in place until discharge from hospital - His IV antibiotics will complete on 06/25 (16) Rheumatoid arthritis: Plan: - Holding etanercept while treatment for bacteremia (17) DVT prophylaxis: Plan: - Eliquis Disposition: - Plan to go back to [facility] when medically cleared; not cleared at this time Admission and Anticipated Discharge Date Admission Date: June 20, 2021 Subjective Reports overall feeling improved. Denies SOB. States when not wearing the oxygen he feels more anxious so it makes him feel better to have it on. He continues to have a negative fluid balance with rohit labs. Verbalizes no new complaints at this time. Review of Systems Constitutional: no fever and no chills Ear, Nose, Mouth, Throat: no nasal congestion and no sore throat Respiratory: no cough, no chest congestion and no dyspnea Cardiovascular: no chest pain and no orthopnea Gastrointestinal: no abdominal pain, no nausea and no vomiting Musculoskeletal: + neck pain and + joint pain (reports increase joint pains since off Enbrel) Neurologic: no tingling and no numbness Physical Exam Constitutional: no acute distress Neck: trachea midline Respiratory: normal respiratory effort, lungs clear to auscultation no cough Auscultation: + diminished lung sounds (bases b/l) Cardiovascular: Rate/Rhythm: + irregularly irregular Extremities: + edema (edema of upper extremities R > L; no pitting edema of b/l lower extremities) and + vascular access device (PICC line in RUE intact without erythema or drainage; no tenderness to palp) Gastrointestinal (Abdomen): normal bowel sounds, soft, nontender, no hepatosplenomegaly Musculoskeletal: Head/Neck/Chest: normocephalic and head atraumatic Neurologic: moves all extremities Psychiatric: A+Ox3, euthymic affect Results & Data Results & Data ([facility]) Vital Signs (Past 12 Hours) Vital Signs Temp Pulse Pulse Resp BP Pulse Ox 06/25/21 15:23 95 H 06/25/21 14:56 37 C 98 H 18 127/68 100 06/25/21 10:53 36.9 C 100 H 18 123/69 99 06/25/21 07:47 114 H 06/25/21 07:19 36.9 C 102 H 18 101/70 98 PG Care Time/CCT Total # of Minutes Spent Total Time Spent with Patient: Total time spent is greater than 50% [facility] (as documented) at patient's floor/unit and/or counseling patient: Coding Level of Care Code 29785 Subseq Hosp Care Lvl 3 Diagnoses Pulmonary edema J81.1 Cardiomyopathy I42.9 Pleural effusion J90 Afib I48.91 Cervical spine fracture S12.9XXA Joint contracture of left lower leg M24.562 Hypertension I10 Hypoalbuminemia E88.09 Restless leg syndrome G25.81 Anemia D64.9 S/P PICC central line placement Z95.828 Chronic diastolic CHF (congestive heart failure) I50.32 Acute respiratory failure with hypoxia J96.01 Pericardial effusion I31.3 Bacteremia R78.81 Rheumatoid arthritis M06.9 Rheumatoid arthritis location: unspecified site Rheumatoid factor presence: unspecified presence DVT prophylaxis Z29.9 (1) Rheumatoid arthritis Rheumatoid arthritis location: unspecified site Rheumatoid factor presence: unspecified presence Qualified Code(s): M06.9 - Rheumatoid arthritis, unspec ified
[2021-06-25] MEDS: ATORVASTATIN 40 MG TAB PO SCH (20:34)
[2021-06-26] MEDS: ceFAZolin 2000MG 2,000 MG/15 ML SYR IV SCH ×3 (01:55→17:39)
[2021-06-26] MEDS: traMADol HCL 50 MG TABLET PO PRN ×4 (04:47→21:29)
[2021-06-26] MEDS: rOPINIRole HCL 1 MG TABLET PO SCH ×2 (06:13→17:52)
[2021-06-26] MEDS: DOCUSATE SODIUM 100 MG CAP PO SCH ×2 (09:09→18:12)
[2021-06-26] MEDS: carvediloL 25 MG TAB PO SCH ×2 (09:10→21:22)
[2021-06-26] MEDS: APIXABAN 5 MG TABLET PO SCH ×2 (09:10→21:22)
[2021-06-26] MEDS: FOLIC ACID 1 MG TAB PO SCH (09:11)
[2021-06-26] MEDS: SENNA 8.6 MG TAB PO SCH (09:12)
[2021-06-26] MEDS: lisinopril 5 MG TAB PO SCH (09:12)
[2021-06-26] MEDS: POLYETHYLENE (MIRALAX) 17 GM PACK PO SCH (09:13)
[2021-06-26] MEDS: FUROSEMIDE 20 MG in SYRINGE 0 ML IV SCH ×2 (09:13→17:39)
[2021-06-26] MEDS: TERAZOSIN HCL 1 MG CAP PO SCH ×2 (09:14→21:22)
[2021-06-26] MEDS: POTASSIUM CHLORIDE CRTAB 20 MEQ TABCR PO SCH ×2 (09:14→17:54)
--- NOTE | 2021-06-26 19:26 | Hospitalist Progress Note ---
Date of Service June 26, 2021 Assessment & Plan (1) Chronic diastolic CHF (congestive heart failure): Plan: - Acute diastolic CHF - presented with acute pulmonary edema, pleural effusions, pericardial effusions, and acute respiratory failure with hypoxia; proBNP александр vated - IMPROVING - weaned off O2 to RA however states O2 helps him feel less panicked - Continue to trend weight and I&O - continues to be a negative fluid balance - Echo - Jun - EF 45-50%; L ventricular systolic function borderline reduced; akinesis of the inferior base; small pericardial effusion - Change Lasix to 20 mg IV daily - renal function and vitals stable and will continue to monitor - Replete electrolytes as needed; continue to improve rate control - Continue increased Carvedilol at 25 mg BID - Daily weights, strict I&Os, low sodium diet (2) Pulmonary edema: Plan: - Pulmonary edema in the setting of likely rate related heart failure and CHF -- HRs are gradually improving into 80s-100s - Continue Lasix and will assess labs on 06/27 - renal function remains intact and BP acceptable (3) Acute respiratory failure with hypoxia: Plan: - RESOLVED - initially on BiPAP and weaned on O2 (wearing for comfort); secondary to CHF -- Likely has ROSALBA - CPAP as tolerated - Continue to diurese; nebulizers PRN - CTA chest - possible small subsegmental RUL PE; no DVT on U/S - Continue Eliquis (4) Pericardial effusion: Plan: - Now small on repeat echo - will need follow-on echo in the short interval - No evidence of tamponade at this time - Continue diureses; if significant tachycardia and hypotensive - stat echo warranted - Cardiology following - appreciate input (5) Cardiomyopathy: Plan: - Echo - 24 June - EF 45-50%; L ventricular systolic function borderline reduced; akinesis of inferior base; small pericardial effusion (improved from 21 June) - Pulmonary status improved continuing to obtain stable rate control - Continue increased Carvedilol 25 mg PO BID; Lisinopril 5 mg daily (6) Bacteremia: Plan: - Completed treatment for MSSA bacteremia x 6 weeks of Ancef - last dose is 06/25 - PICC line in place - no DVT found on U/S; will continue PICC until D/C (7) Pleural effusion: Plan: - Multifactorial with low albumin and HF - Diurese as above and follow; routine CXR (8) Afib: Plan: - As above; see if offloading volume assists with rate control - Diurese and monitor/replete electrolytes - Continue Eliquis, Coreg, and telemetry monitoring (9) Cervical spine fracture: Plan: - 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 - Evaluated by ortho - planning on conservative measures at this time; poor surgical candidate would need completed at tertiary care; soft collar with transfers and movements (10) Joint contracture of left lower leg: Plan: - Wheel chair bound and high fall risk - PT/OT - Multiple assist likely needed with transfers to prevent further injuries (11) Hypertension: Plan: - Appears well controlled - As above diurese, follow hemodynamics - Continue Lisinopril and Coreg (12) Hypoalbuminemia: Plan: - Chronic poor nutrition state - Patient likely unable to care for himself sufficiently (13) Restless leg syndrome: Plan: - Continue ropinirole (14) Anemia: Plan: - HGB stable at this point - likely anemia of chronic disease and RYAN; folate deficiency - Patient denies any blood or dark stools - Completed Venofer treatment (15) S/P PICC central line placement: Plan: - PICC placed 6 weeks ago for MSSA bacteremia - Right upper extremity venous Doppler checked due to right upper extremity edema-negative for DVT - The PICC line is working well as per IV team - Keep in place until discharge from hospital - His IV antibiotics are completed at this time (16) Rheumatoid arthritis: Plan: - May resume etanercept - uncertain if available in-house (17) DVT prophylaxis: Plan: - Eliquis Disposition: - Plan to go back to [facility] when medically cleared; not cleared at this time, possibly in next few days depending on diuresis/heart rate stability Admission and Anticipated Discharge Date Admission Date: June 20, 2021 Subjective Reports his breathing feels better today however feels "panicked" when he doesnt have his O2 on. Has been satting 98% or more. Continues to diurese and will check labs in the AM. HR starting to improve further from 80s to low 100s remains asymptomatic with that. Review of Systems Constitutional: no fever and no chills Ear, Nose, Mouth, Throat: no nasal congestion and no sore throat + mild L upper lip swelling (bit lip) Respiratory: no cough, no chest congestion and no dyspnea Cardiovascular: no chest pain and no orthopnea Gastrointestinal: no abdominal pain, no nausea and no vomiting Musculoskeletal: + neck pain and + joint pain (reports increase joint pains since off Enbrel) Neurologic: no tingling and no numbness Physical Exam Constitutional: no acute distress Neck: trachea midline Respiratory: normal respiratory effort, lungs clear to auscultation no cough Auscultation: + diminished lung sounds (bases b/l) Cardiovascular: Rate/Rhythm: + irregularly irregular Extremities: + edema (edema of upper extremities R > L; no pitting edema of b/l lower extremities) and + vascular access device (PICC line in RUE intact without erythema or drainage; no tenderness to palp) Gastrointestinal (Abdomen): normal bowel sounds, soft, nontender, no hepatosplenomegaly Musculoskeletal: Head/Neck/Chest: normocephalic and head atraumatic Neurologic: moves all extremities Psychiatric: A+Ox3, euthymic affect Results & Data Results & Data ([facility]) Vital Signs (Past 12 Hours) Vital Signs Temp Pulse Pulse Resp BP Pulse Ox 06/26/21 15:24 36.7 C 82 20 117/70 98 06/26/21 11:35 36.7 C 95 H 18 100/68 98 06/26/21 07:50 36.5 C 103 H 18 116/79 96 06/26/21 07:47 102 H PG Care Time/CCT Total # of Minutes Spent Total Time Spent with Patient: Total time spent is greater than 50% in coordination of care (as documented) at patient's floor/unit and/or counseling patient: Coding Level of Care Code 44104 Subseq Hosp Care Lvl 3 Diagnoses Chronic diastolic CHF (congestive heart failure) I50.32 Pulmonary edema J81.1 Acute respiratory failure with hypoxia J96.01 Pericardial effusion I31.3 Cardiomyopathy I42.9 Bacteremia R78.81 Pleural effusion J90 Afib I48.91 Cervical spine fracture S12.9XXA Joint contracture of left lower leg M24.562 Hypertension I10 Hypoalbuminemia E88.09 Restless leg syndrome G25.81 Anemia D64.9 S/P PICC central line placement Z95.828 Rheumatoid arthritis M06.9 Rheumatoid arthritis location: unspecified site Rheumatoid factor presence: unspecified presence DVT prophylaxis Z29.9 (1) Rheumatoid arthritis Rheumatoid arthritis location: unspecified site Rheumatoid factor presence: unspecified presence Qualified Code(s): M06.9 - Rheumatoid arthritis, unspecified
[2021-06-26] MEDS: ATORVASTATIN 40 MG TAB PO SCH (21:22)
[2021-06-27] MEDS: traMADol HCL 50 MG TABLET PO PRN ×3 (01:33→14:41)
[2021-06-27] MEDS: rOPINIRole HCL 1 MG TABLET PO SCH ×2 (05:25→17:23)
[2021-06-27 08:23] LABS: Hemoglobin 8.4 g/dL (14.0-18.0); Mean Corpuscular Hgb Conc 31.1 g/dL (32-36); Mean Corpuscular Volume 80.4 fL (80-100); Mean Platelet Volume 8.9 fL (7.4-10.4); Platelet Count 263 K/uL (130-400); RDW Standard Deviation 55.5 fL (36.4-46.3); Red Blood Count 3.36 M/uL (4.7-6.1); White Blood Count 5.12 K/uL (4.8-10.8)
[2021-06-27] MEDS ORDERED: FUROSEMIDE 20 MG in SYRINGE 0 ML IV SCH (09:00)
[2021-06-27 09:06] LABS: BUN Creatinine Ratio 50.6 (10-20); Blood Urea Nitrogen 17 mg/dl (7-18); Calcium 8.2 mg/dl (8.5-10.1); Carbon Dioxide 28 mmol/L (21-32); Chloride 95 mmol/L (98-107); Creatinine Clr Calc Pharmacy 227.4 ml/min; Est GFR (African American) > 150.0 ml/min; Glucose 88 mg/dl (70-99); Magnesium 1.9 mg/dl (1.8-2.4); Potassium 4.4 mmol/L (3.5-5.1); Sodium 127 mmol/L (136-145)
[2021-06-27] MEDS: APIXABAN 5 MG TABLET PO SCH ×2 (09:37→20:11)
[2021-06-27] MEDS: carvediloL 25 MG TAB PO SCH ×2 (09:38→20:11)
[2021-06-27] MEDS: FOLIC ACID 1 MG TAB PO SCH (09:38)
[2021-06-27] MEDS: DOCUSATE SODIUM 100 MG CAP PO SCH ×2 (09:38→17:22)
[2021-06-27] MEDS: SENNA 8.6 MG TAB PO SCH (09:39)
[2021-06-27] MEDS: POLYETHYLENE (MIRALAX) 17 GM PACK PO SCH (09:39)
[2021-06-27] MEDS: TERAZOSIN HCL 1 MG CAP PO SCH ×2 (09:39→20:11)
[2021-06-27] MEDS: POTASSIUM CHLORIDE CRTAB 20 MEQ TABCR PO SCH ×2 (09:39→17:21)
[2021-06-27] MEDS: lisinopril 5 MG TAB PO SCH (09:40)
--- NOTE | 2021-06-27 10:59 | Hospitalist Progress Note ---
Date of Service June 27, 2021 Assessment & Plan (1) Chronic diastolic CHF (congestive heart failure): Plan: - Acute diastolic CHF - presented with acute pulmonary edema, pleural effusions, pericardial effusions, and acute respiratory failure with hypoxia; proBNP александр vated - IMPROVING - weaned off O2 to RA however states O2 helps him feel less panicked and continues to utilize - Continue to trend weight and I&O - continues to be a negative fluid balance with a total of -10 L - Echo - Jun - EF 45-50%; L ventricular systolic function borderline reduced; akinesis of the inferior base; small pericardial effusion - Change Lasix to 40 mg po daily - renal function and vitals stable and will continue to monitor - Replete electrolytes as needed; continue to improve rate control - hyponatremia on labs today and may be limited on further aggressive diuresis - Continue increased Carvedilol at 25 mg BID - Daily weights, strict I&Os, low sodium diet (2) Pulmonary edema: Plan: - Pulmonary edema in the setting of likely rate related heart failure and CHF -- HRs are gradually improving into 80s-100s - Continue Lasix and will assess labs - renal function remains intact and BP acceptable (3) Acute respiratory failure with hypoxia: Plan: - RESOLVED - initially on BiPAP and weaned on O2 (wearing for comfort); secondary to CHF -- Likely has ROSALBA - CPAP as tolerated - Continue to diurese; nebulizers PRN - CTA chest - possible small subsegmental RUL PE; no DVT on U/S - Continue Eliquis (4) Pericardial effusion: Plan: - Now small on repeat echo - will need follow-on echo in the short interval - No evidence of tamponade at this time - Continue diureses; if significant tachycardia and hypotensive - stat echo warranted - Cardiology following - appreciate input (5) Cardiomyopathy: Plan: - Echo - 24 June - EF 45-50%; L ventricular systolic function borderline reduced; akinesis of inferior base; small pericardial effusion (improved from 21 June) - Pulmonary status improved continuing to obtain stable rate control - Continue increased Carvedilol 25 mg PO BID; Lisinopril 5 mg daily (6) Bacteremia: Plan: - Completed treatment for MSSA bacteremia x 6 weeks of Ancef - PICC line in place - no DVT found on U/S; will continue PICC until D/C (7) Pleural effusion: Plan: - Multifactorial with low albumin and HF - Diurese as above and follow; routine CXR (8) Afib: Plan: - As above; see if offloading volume assists with rate control - Diurese and monitor/replete electrolytes - Continue Eliquis, Coreg, and telemetry monitoring (9) Cervical spine fracture: Plan: - 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 - Evaluated by ortho - planning on conservative measures at this time; poor surgical candidate would need completed at tertiary care; soft collar with transfers and movements (10) Joint contracture of left lower leg: Plan: - Wheel chair bound and high fall risk - PT/OT - Multiple assist likely needed with transfers to prevent further injuries (11) Hypertension: Plan: - Appears well controlled - As above diurese, follow hemodynamics - Continue Lisinopril and Coreg (12) Hypoalbuminemia: Plan: - Chronic poor nutrition state - Patient likely unable to care for himself sufficiently (13) Restless leg syndrome: Plan: - Continue ropinirole (14) Anemia: Plan: - HGB stable at this point - likely anemia of chronic disease and RYAN; folate deficiency - Patient denies any blood or dark stools - Completed Venofer treatment (15) S/P PICC central line placement: Plan: - PICC placed 6 weeks ago for MSSA bacteremia - Right upper extremity venous Doppler checked due to right upper extremity edema-negative for DVT - Keep in place until discharge from hospital - His IV antibiotics are completed at this time (16) Rheumatoid arthritis: Plan: - May resume etanercept - uncertain if available in-house (17) DVT prophylaxis: Plan: - Eliquis Disposition: - Plan to go back to [facility] when medically cleared; converted to oral Lasix and possible D/C over weekend Admission and Anticipated Discharge Date Admission Date: June 20, 2021 Subjective Reports his breathing is improving today. Feeling less panicked. Still using supplementary O2. HR vary between 80-120. Continues to diurese however sodium lower today and will reduce frequency of diuresis. Review of Systems Review of Systems: REVIEW OF SYSTEMS General/Constitutional: + fatigue; Denies fever/chills ENT: Denies nasal drainage, sore throat Cardiovascular: +edema in b/l upper extremities; Denies chest pain, palpitations Respiratory: Denies cough, sputum, SOB but feels "panicked" when off O2, wheezing GI: Denies nausea, vomiting, abdominal pain : Denies pain with flores catheter Neurologic: Denies dizziness/lightheadedness Skin: Denies rash, itch, new skin changes, easy bruising Physical Exam Physical Exam: PHYSICAL EXAM General Appearance: Chronically ill-appearing in NAD who is A&O x 3 but drowsy with recent pain medication administration HEENT: Head is normocephalic/atraumatic; Hearing grossly intact Neck: Supple; Trachea midline; Neg JVD Heart: irregularly irregular and slightly distant sounds with no M/G/R Lungs: CTA in all lung underwood bilaterally but diminished at bases; no adventitious breath sounds; Respirations unlabored; Neg accessory muscle use Abdomen: Soft, non-tender; Positive BS x 4 quadrants Extremities: Neg cyanosis; no edema of b/l lower extremities; edema of UE with R>L Neurological: Speech clear Psychiatric: Appropriate mood/affect; drowsy Skin: Normal Color; Warm/Dry Results & Data Results & Data ([facility]) Vital Signs (Past 12 Hours) Vital Signs Temp Pulse Pulse Pulse Resp BP Pulse Ox 06/27/21 07:03 36.6 C 112 H 18 117/63 94 06/27/21 07:00 99 H 06/27/21 02:55 36.6 C 109 H 20 121/74 97 06/26/21 23:59 108 H PG Care Time/CCT Total # of Minutes Spent Total Time Spent with Patient: Total time spent is greater than 50% in coordination of care (as documented) at patient's floor/unit and/or counseling patient: Coding Level of Care Code 62417 Subseq Hosp Care Lvl 3 Diagnoses Chronic diastolic CHF (congestive heart failure) I50.32 Pulmonary edema J81.1 Acute respiratory failure with hypoxia J96.01 Pericardial effusion I31.3 Cardiomyopathy I42.9 Bacteremia R78.81 Pleural effusion J90 Afib I48.91 Cervical spine fracture S12.9XXA Joint contracture of left lower leg M24.562 Hypertension I10 Hypoalbuminemia E88.09 Restless leg syndrome G25.81 Anemia D64.9 S/P PICC central line placement Z95.828 Rheumatoid arthritis M06.9 Rheumatoid arthritis location: unspecified site Rheumatoid factor presence: unspecified presence DVT prophylaxis Z29.9 (1) Rheumatoid arthritis Rheumatoid arthritis location: unspecified site Rheumatoid factor presence: unspecified presence Qualified Code(s): M06.9 - Rheumatoid arthritis, unspecified
--- NOTE | 2021-06-27 12:10 | XRay Report ---
XR chest 1V portable CLINICAL HISTORY: Reassessment Pleural Effusion COMPARISON STUDY: June 23, 2021 FINDINGS: No pneumothorax. Small bilateral pleural effusion are again seen and unchanged since prior. Hazy opacity at the right mid to lower lung region might represent layering pleural effusion and/or superimposed atelectasis/in filtrate. Stable large dense left retrocardiac opacity is again seen and could also represent atelectasis or in filtrative lesion. Cardiac silhouette is mildly enlarged and stable since prior. Aorta is calcified. Mild pulmonary vascular congestion is seen. Stable position of right-sided PICC line.. Osseous structures: Severe degenerative changes of bilateral shoulders. IMPRESSION: 1. Stable bilateral pleural effusion associated with atelectasis/infiltrate at bilateral bases. 2. Redemonstration of cardiomegaly and mild pulmonary vascular congestion which is unchanged since p rior. 3. The rest of findings as above. ACT 112: Negative or not required by law. The above report was generated using voice recognition software. It may contain grammatical, syntax o r spelling errors. Electronically signed by: Yessica Clemente DO 06/27/2021 12:09 PM
[2021-06-27] MEDS: ATORVASTATIN 40 MG TAB PO SCH (20:11)
[2021-06-28] MEDS: rOPINIRole HCL 1 MG TABLET PO SCH (05:10)
[2021-06-28 07:44] LABS: Hematocrit (blood only) 27.1 % (42-52); Hemoglobin 8.4 g/dL (14.0-18.0); Mean Corpuscular Hemoglobin 24.9 pg (25-34); Mean Corpuscular Volume 80.2 fL (80-100); Mean Platelet Volume 9.1 fL (7.4-10.4); Platelet Count 262 K/uL (130-400); RDW Coefficient of Variation 18.9 % (11.5-14.5); RDW Standard Deviation 55.2 fL (36.4-46.3); Red Blood Count 3.38 M/uL (4.7-6.1); White Blood Count 3.94 K/uL (4.8-10.8)
[2021-06-28 07:59] LABS: BUN Creatinine Ratio 49.5 (10-20); Calcium 7.9 mg/dl (8.5-10.1); Creatinine Clr Calc Pharmacy 192.4 ml/min; Est GFR (Non-African American) 125.1 ml/min; Potassium 4.3 mmol/L (3.5-5.1)
[2021-06-28] MEDS: POTASSIUM CHLORIDE CRTAB 20 MEQ TABCR PO SCH (09:00)
[2021-06-28] MEDS: SENNA 8.6 MG TAB PO SCH (09:00)
[2021-06-28] MEDS: TERAZOSIN HCL 1 MG CAP PO SCH ×2 (09:00→20:20)
[2021-06-28] MEDS: APIXABAN 5 MG TABLET PO SCH ×2 (09:00→20:20)
[2021-06-28] MEDS: carvediloL 25 MG TAB PO SCH ×2 (09:00→20:20)
[2021-06-28] MEDS: FOLIC ACID 1 MG TAB PO SCH (09:00)
[2021-06-28] MEDS: lisinopril 5 MG TAB PO SCH (09:00)
[2021-06-28] MEDS: POLYETHYLENE (MIRALAX) 17 GM PACK PO SCH (09:01)
[2021-06-28] MEDS: FUROSEMIDE 40 MG TAB PO SCH (09:36)
[2021-06-28] MEDS: DOCUSATE SODIUM 100 MG CAP PO SCH ×2 (09:37→17:02)
[2021-06-28] MEDS: traMADol HCL 50 MG TABLET PO PRN ×2 (09:44→16:28)
[2021-06-28] MEDS ORDERED: DIGOXIN 125 MCG in SYRINGE 9.5 ML IV ONE (10:30)
--- NOTE | 2021-06-28 14:30 | Cardiology Progress Note ---
Date of Service June 28, 2021 Assessment & Plan (1) Pericardial effusion: Plan: -2nd echocardiogram notes a small, rather than moderate, pericardial effusion. -etiology uncertain. -recheck limited echocardiogram as an outpatient. (2) Afib: Plan: -ventricular response at approximately 100-110 bpm. -carvedilol increased to 25 mg b.i.d.. -continue Eliquis. -would add digoxin 0.25 IV today. If successful, would continue at 0.25 mg p.o. daily. (3) Cardiomyopathy: Plan: -borderline left ventricular ejection fraction 45-50%. -essentially unchanged from May 2021. -continue carvedilol and lisinopril. Admission and Anticipated Discharge Date Admission Date: June 20, 2021 Subjective The patient is resting comfortably in bed without complaints of chest pain, dyspnea, or palpitations. Physical Exam Physical Exam: In general this is a well-developed well-nourished white male in no acute distress. HEENT exam is negative. Neck is supple with full carotid upstrokes. No obvious bruits. Jugular venous pressure is flat at 45. No thyromegaly. Cardiovascular exam reveals an irregular regular rhythm with distant heart sounds. No obvious murmurs. Lungs note decreased breath sounds at the bases but no rales, rhonchi or wheezes. Abdomen is soft and nontender without bruits. Extremities reveal intact radial artery pulses bilaterally. There is no peripheral edema. 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 PG Care Time/CCT Total # of Minutes Spent Total Time Spent with Patient: Total time spent is greater than 50% in coordination of care (as documented) at patient's floor/unit and/or counseling patient: Coding Level of Care Code 85228 Subseq Hosp Care Lvl 3 Diagnoses Pericardial effusion I31.3 Afib I48.91 Cardiomyopathy I42.9
[2021-06-28] MEDS ORDERED: rOPINIRole HCL 1 MG TABLET PO ONE ×2 (15:45→20:00)
--- NOTE | 2021-06-28 18:27 | Hospitalist Progress Note ---
Date of Service June 28, 2021 Assessment & Plan (1) Chronic diastolic CHF (congestive heart failure): Plan: - Acute diastolic CHF - presented with acute pulmonary edema, pleural effusions, pericardial effusions, and acute respiratory failure with hypoxia; proBNP александр vated - IMPROVING - weaned off O2 to RA however states O2 helps him feel less panicked and continues to utilize - Continue to trend weight and I&O - continues to be a negative fluid balance with a total of -10 L - Echo - Jun - EF 45-50%; L ventricular systolic function borderline reduced; akinesis of the inferior base; small pericardial effusion - Continue Lasix to 40 mg po daily - renal function and vitals stable and will continue to monitor - Replete electrolytes as needed; continue to improve rate control - hyponatremia improving but may be limited on further aggressive diuresis and moving to a maintenance regimen - Continue increased Carvedilol at 25 mg BID - Daily weights, strict I&Os, low sodium diet (2) Pulmonary edema: Plan: - Pulmonary edema in the setting of likely rate related heart failure and CHF -- HRs are gradually improving into 80s-100s - Continue Lasix and will assess labs - renal function remains intact and BP acceptable (3) Acute respiratory failure with hypoxia: Plan: - RESOLVED - initially on BiPAP and weaned on O2 (wearing for comfort); secondary to CHF -- Likely has ROSALBA - CPAP as tolerated - Continue to diurese; nebulizers PRN - CTA chest - possible small subsegmental RUL PE; no DVT on U/S - Continue Eliquis (4) Pericardial effusion: Plan: - Now small on repeat echo - will need follow-on echo in the short interval - No evidence of tamponade at this time - Continue diureses; if significant tachycardia and hypotensive - stat echo warranted - Cardiology following - appreciate input (5) Cardiomyopathy: Plan: - Echo - 24 June - EF 45-50%; L ventricular systolic function borderline reduced; akinesis of inferior base; small pericardial effusion (improved from 21 June) - Pulmonary status improved continuing to obtain stable rate control - Continue increased Carvedilol 25 mg PO BID; Lisinopril 5 mg daily (6) Afib: Plan: - As above; see if offloading volume assists with rate control - Diurese and monitor/replete electrolytes - Add Digoxin IV x 1 dose today - if positive response can add daily oral dosing - Continue Eliquis, Coreg, and telemetry monitoring (7) Pleural effusion: Plan: - Multifactorial with low albumin and HF - Diurese as above and follow; routine CXR (8) Cervical spine fracture: Plan: - 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 - Evaluated by ortho - planning on conservative measures at this time; poor surgical candidate would need completed at tertiary care; soft collar with transfers and movements (9) Bacteremia: Plan: - Completed treatment for MSSA bacteremia x 6 weeks of Ancef - PICC line in place - no DVT found on U/S; will continue PICC until D/C (10) Joint contracture of left lower leg: Plan: - Wheel chair bound and high fall risk - PT/OT - Multiple assist likely needed with transfers to prevent further injuries (11) Hypertension: Plan: - Appears well controlled - As above diurese, follow hemodynamics - Continue Lisinopril and Coreg (12) Hypoalbuminemia: Plan: - Chronic poor nutrition state - Patient likely unable to care for himself sufficiently (13) Restless leg syndrome: Plan: - Continue ropinirole (14) Anemia: Plan: - HGB stable at this point - likely anemia of chronic disease and RYAN; folate deficiency - Patient denies any blood or dark stools - Completed Venofer treatment (15) S/P PICC central line placement: Plan: - PICC placed 6 weeks ago for MSSA bacteremia - Right upper extremity venous Doppler checked due to right upper extremity edema-negative for DVT - Keep in place until discharge from hospital - His IV antibiotics are completed at this time (16) Rheumatoid arthritis: Plan: - May resume etanercept - uncertain if available in-house (17) DVT prophylaxis: Plan: - Eliquis Disposition: - Plan to go back to [facility] when medically cleared; converted to oral Lasix for maintenance dosing; attempting further rate control with Digoxin possible D/C early next week Admission and Anticipated Discharge Date Admission Date: June 20, 2021 Subjective Pt reports overall doing well today. Was getting ready to work with therapy on my visit. States his breathing feels okay today. Still using O2. HRs have improved some with Digoxin and will monitor improvement and possibly add into the daily regimen. Continues with a negative balance with fluid Review of Systems Review of Systems: REVIEW OF SYSTEMS General/Constitutional: Denies fever/chills ENT: Denies nasal drainage, sore throat Cardiovascular: +edema in b/l upper extremities; Denies chest pain, palpitations Respiratory: Denies cough, sputum, SOB, wheezing GI: Denies nausea, vomiting, abdominal pain : Denies pain with flores catheter Neurologic: Denies dizziness/lightheadedness Skin: Denies rash, itch, new skin changes, easy bruising Physical Exam Physical Exam: PHYSICAL EXAM General Appearance: Chronically ill-appearing in NAD who is A&O and participating with therapy HEENT: Head is normocephalic/atraumatic; Hearing grossly intact Neck: Supple; Trachea midline; Neg JVD Heart: irregularly irregular and slightly distant sounds with no M/G/R Lungs: CTA in all lung underwood bilaterally but diminished at bases; no adventitious breath sounds; Respirations unlabored; Neg accessory muscle use Abdomen: Soft, non-tender; Positive BS x 4 quadrants Extremities: Neg cyanosis; no edema of b/l lower extremities; edema of UE with R>L Neurological: Speech clear Psychiatric: Appropriate mood/affect Skin: Normal Color; Warm/Dry Results & Data Results & Data ([facility]) Vital Signs (Past 12 Hours) Vital Signs Temp Pulse Pulse Pulse Resp BP Pulse Ox 06/28/21 16:00 36.3 C L 99 H 91 H 20 141/71 H 99 06/28/21 11:58 36.8 C 81 18 104/58 L 94 06/28/21 11:00 115 H 06/28/21 06:55 36.4 C L 102 H 20 103/71 97 PG Care Time/CCT Total # of Minutes Spent Total Time Spent with Patient: Total time spent is greater than 50% in coordination of care (as documented) at patient's floor/unit and/or counseling patient: Coding Level of Care Code 80039 Subseq Hosp Care Lvl 3 Diagnoses Chronic diastolic CHF (congestive heart failure) I50.32 Pulmonary edema J81.1 Acute respiratory failure with hypoxia J96.01 Pericardial effusion I31.3 Cardiomyopathy I42.9 Bacteremia R78.81 Pleural effusion J90 Afib I48.91 Cervical spine fracture S12.9XXA Joint contracture of left lower leg M24.562 Hypertension I10 Hypoalbuminemia E88.09 Restless leg syndrome G25.81 Anemia D64.9 S/P PICC central line placement Z95.828 Rheumatoid arthritis M06.9 Rheumatoid arthritis location: unspecified site Rheumatoid factor presence: unspecified presence DVT prophylaxis Z29.9 (1) Rheumatoid arthritis Rheumatoid arthritis location: unspecified site Rheumatoid factor presence: unspecified presence Qualified Code(s): M06.9 - Rheumatoid arthritis, unspecified
[2021-06-28] MEDS: ATORVASTATIN 40 MG TAB PO SCH (20:20)
[2021-06-29] MEDS: traMADol HCL 50 MG TABLET PO PRN ×2 (06:13→21:07)
[2021-06-29] MEDS: rOPINIRole HCL 1 MG TABLET PO SCH ×2 (08:04→20:37)
[2021-06-29] MEDS: lisinopril 5 MG TAB PO SCH (08:04)
[2021-06-29] MEDS: SENNA 8.6 MG TAB PO SCH (08:04)
[2021-06-29] MEDS: FOLIC ACID 1 MG TAB PO SCH (08:04)
[2021-06-29] MEDS: carvediloL 25 MG TAB PO SCH ×2 (08:04→20:37)
[2021-06-29] MEDS: APIXABAN 5 MG TABLET PO SCH ×2 (08:04→20:37)
[2021-06-29] MEDS: TERAZOSIN HCL 1 MG CAP PO SCH ×2 (08:04→20:37)
[2021-06-29] MEDS: POTASSIUM CHLORIDE CRTAB 20 MEQ TABCR PO SCH (08:05)
[2021-06-29] MEDS: FUROSEMIDE 40 MG TAB PO SCH (08:05)
[2021-06-29] MEDS: POLYETHYLENE (MIRALAX) 17 GM PACK PO SCH (08:06)
[2021-06-29] MEDS: DOCUSATE SODIUM 100 MG CAP PO SCH ×2 (08:06→16:47)
[2021-06-29] MEDS ORDERED: DIGOXIN 0.25 MG TAB PO ONE (11:15)
--- NOTE | 2021-06-29 14:36 | Hospitalist Progress Note ---
Date of Service June 29, 2021 Assessment & Plan (1) Chronic diastolic CHF (congestive heart failure): Plan: - Acute diastolic CHF - presented with acute pulmonary edema, pleural effusions, pericardial effusions, and acute respiratory failure with hypoxia; proBNP александр vated - IMPROVING - weaned off O2 to RA however states O2 helps him feel less panicked and continues to utilize - Continue to trend weight and I&O - continues to be a negative fluid balance with a total of -10 L which is holding steady - Echo - Jun - EF 45-50%; L ventricular systolic function borderline reduced; akinesis of the inferior base; small pericardial effusion - Continue Lasix to 40 mg po daily - renal function and vitals stable and will continue to monitor - Replete electrolytes as needed; continue to improve rate control - hyponatremia improving but may be limited on further aggressive diuresis and moving to a maintenance regimen - Continue increased Carvedilol at 25 mg BID - Daily weights, strict I&Os, low sodium diet (2) Pulmonary edema: Plan: - Pulmonary edema in the setting of likely rate related heart failure and CHF -- HRs are gradually improving into 80s-100s - Continue Lasix and will assess labs - renal function remains intact and BP acceptable (3) Acute respiratory failure with hypoxia: Plan: - RESOLVED - initially on BiPAP and weaned on O2 (wearing for comfort); secondary to CHF -- Likely has ROSALBA - CPAP as tolerated - Continue to diurese; nebulizers PRN - CTA chest - possible small subsegmental RUL PE; no DVT on U/S - Continue Eliquis (4) Pericardial effusion: Plan: - Now small on repeat echo - will need follow-on echo in the short interval - No evidence of tamponade at this time - Continue diureses; if significant tachycardia and hypotensive - stat echo warranted - Cardiology following - appreciate input (5) Cardiomyopathy: Plan: - Echo - 24 June - EF 45-50%; L ventricular systolic function borderline reduced; akinesis of inferior base; small pericardial effusion (improved from 21 June) - Pulmonary status improved continuing to obtain stable rate control - Continue increased Carvedilol 25 mg PO BID; Lisinopril 5 mg daily (6) Afib: Plan: - As above; see if offloading volume assists with rate control - Diurese and monitor/replete electrolytes - Will continue Digoxin 0.25 mg daily - Continue Eliquis, Coreg, and telemetry monitoring (7) Pleural effusion: Plan: - Multifactorial with low albumin and HF - Diurese as above and follow; routine CXR (8) Cervical spine fracture: Plan: - 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 - Evaluated by ortho - planning on conservative measures at this time; poor surgical candidate would need completed at tertiary care; soft collar with transfers and movements (9) Bacteremia: Plan: - Completed treatment for MSSA bacteremia x 6 weeks of Ancef - PICC line in place - no DVT found on U/S; will continue PICC until D/C (10) Joint contracture of left lower leg: Plan: - Wheel chair bound and high fall risk - PT/OT - Multiple assist likely needed with transfers to prevent further injuries (11) Hypertension: Plan: - Appears well controlled - As above diurese, follow hemodynamics - Continue Lisinopril and Coreg (12) Hypoalbuminemia: Plan: - Chronic poor nutrition state - Patient likely unable to care for himself sufficiently (13) Restless leg syndrome: Plan: - Continue ropinirole (14) Anemia: Plan: - HGB stable at this point - likely anemia of chronic disease and RYAN; folate deficiency - Patient denies any blood or dark stools - Completed Venofer treatment (15) S/P PICC central line placement: Plan: - PICC placed 6 weeks ago for MSSA bacteremia - Right upper extremity venous Doppler checked due to right upper extremity edema-negative for DVT - Keep in place until discharge from hospital - His IV antibiotics are completed at this time (16) Rheumatoid arthritis: Plan: - May resume etanercept - uncertain if available in-house; call placed to [facility] (17) DVT prophylaxis: Plan: - Eliquis Disposition: - Plan to go back to [facility] when medically cleared; converted to oral Lasix for maintenance dosing; attempting further rate control with Digoxin possible D/C early next week -- Pt mentioned returning home - he would be unable to care for himself unless he has 24/7 care which would have to come out of pocket - will discuss with case management Admission and Anticipated Discharge Date Admission Date: June 20, 2021 Subjective Reports feeling okay today. Feels that his breathing is stable and not feeling panicked even though he feels like the O2 isn't blowing. Can try to keep weaning as his saturations have been adequate. He wants to look at going home after discharge. States he lives alone and doesn't seem to have a plan on how to function without support. Discussed home services however they would not be everyday and his response was "lets just see". He said he would like to go home just for an afternoon? Will discuss with case management as he would have no ability to care for himself and would need 24/7 care. Review of Systems Review of Systems: REVIEW OF SYSTEMS General/Constitutional: Denies fever/chills ENT: Denies nasal drainage, sore throat Cardiovascular: +edema in b/l upper extremities; Denies chest pain, palpitations Respiratory: Denies cough, sputum, SOB, wheezing GI: Denies nausea, vomiting, abdominal pain : Denies pain with flores catheter Neurologic: Denies dizziness/lightheadedness Skin: Denies rash, itch, new skin changes, easy bruising Physical Exam Physical Exam: PHYSICAL EXAM General Appearance: Chronically ill-appearing in NAD who is A&O HEENT: Head is normocephalic/atraumatic; Hearing grossly intact Neck: Supple; Trachea midline; Neg JVD Heart: irregularly irregular and slightly distant sounds with no M/G/R Lungs: CTA in all lung underwood bilaterally but diminished at bases; no adventitious breath sounds; Respirations unlabored; Neg accessory muscle use Abdomen: Soft, non-tender; Positive BS x 4 quadrants Extremities: Neg cyanosis; no edema of b/l lower extremities; edema of UE with R>L Neurological: Speech clear Psychiatric: Appropriate mood/affect Skin: Normal Color; Warm/Dry Results & Data Results & Data ([facility]) Vital Signs (Past 12 Hours) Vital Signs Temp Pulse Resp BP Pulse Ox 06/29/21 11:25 36.7 C 107 H 20 127/77 100 06/29/21 07:42 37.1 C 113 H 18 116/73 98 06/29/21 04:00 36.8 C 102 H 20 118/71 92 PG Care Time/CCT Total # of Minutes Spent Total Time Spent with Patient: Total time spent is greater than 50% in coordination of care (as documented) at patient's floor/unit and/or counseling patient: Coding Level of Care Code 10277 Subseq Hosp Care Lvl 3 Diagnoses Chronic diastolic CHF (congestive heart failure) I50.32 Pulmonary edema J81.1 Acute respiratory failure with hypoxia J96.01 Pericardial effusion I31.3 Cardiomyopathy I42.9 Afib I48.91 Pleural effusion J90 Cervical spine fracture S12.9XXA Bacteremia R78.81 Joint contracture of left lower leg M24.562 Hypertension I10 Hypoalbuminemia E88.09 Restless leg syndrome G25.81 Anemia D64.9 S/P PICC central line placement Z95.828 Rheumatoid arthritis M06.9 Rheumatoid arthritis location: unspecified site Rheumatoid factor presence: unspecified presence DVT prophylaxis Z29.9 (1) Rheumatoid arthritis Rheumatoid arthritis location: unspecified site Rheumatoid factor presence: unspecified presence Qualified Code(s): M06.9 - Rheumatoid arthritis, unspecified
[2021-06-29] MEDS ORDERED: rOPINIRole HCL 1 MG TABLET PO SCH (18:00)
[2021-06-29] MEDS: ATORVASTATIN 40 MG TAB PO SCH (20:37)
[2021-06-30 06:57] LABS: BUN Creatinine Ratio 52.9 (10-20); Calcium 8.2 mg/dl (8.5-10.1); Creatinine Clr Calc Pharmacy 208.4 ml/min; Est GFR (African American) 149.8 ml/min; Est GFR (Non-African American) 129.2 ml/min; Potassium 4.4 mmol/L (3.5-5.1)
[2021-06-30] MEDS: DIGOXIN 0.25 MG TAB PO SCH (08:10)
[2021-06-30] MEDS: FUROSEMIDE 40 MG TAB PO SCH (08:10)
[2021-06-30] MEDS: APIXABAN 5 MG TABLET PO SCH ×2 (08:10→19:37)
[2021-06-30] MEDS: TERAZOSIN HCL 1 MG CAP PO SCH ×2 (08:10→19:36)
[2021-06-30] MEDS: rOPINIRole HCL 1 MG TABLET PO SCH ×2 (08:10→19:36)
[2021-06-30] MEDS: SENNA 8.6 MG TAB PO SCH (08:10)
[2021-06-30] MEDS: POTASSIUM CHLORIDE CRTAB 20 MEQ TABCR PO SCH (08:11)
[2021-06-30] MEDS: FOLIC ACID 1 MG TAB PO SCH (08:11)
[2021-06-30] MEDS: carvediloL 25 MG TAB PO SCH ×2 (08:11→19:36)
[2021-06-30] MEDS: lisinopril 5 MG TAB PO SCH (08:11)
[2021-06-30] MEDS: DOCUSATE SODIUM 100 MG CAP PO SCH ×2 (08:14→16:59)
[2021-06-30] MEDS: traMADol HCL 50 MG TABLET PO PRN ×2 (08:14→19:39)
[2021-06-30] MEDS: POLYETHYLENE (MIRALAX) 17 GM PACK PO SCH (08:14)
--- NOTE | 2021-06-30 17:53 | Hospitalist Progress Note ---
Date of Service June 30, 2021 Assessment & Plan (1) Chronic diastolic CHF (congestive heart failure): Plan: - Acute diastolic CHF - presented with acute pulmonary edema, pleural effusions, pericardial effusions, and acute respiratory failure with hypoxia; proBNP александр vated - IMPROVING - weaned off O2 to RA however states O2 helps him feel less panicked and continues to utilize even with appropriate O2 saturations - Continue to trend weight and I&O - continues to be a negative fluid balance with a total of -11 L which is holding steady - Echo - Jun - EF 45-50%; L ventricular systolic function borderline reduced; akinesis of the inferior base; small pericardial effusion - Continue Lasix to 40 mg po daily - renal function and vitals stable and will continue to monitor -- May need to consider downgrade to 20 mg daily as his upper extremities are getting weaker and concern for adequate oral intake - Replete electrolytes as needed; continue to improve rate control - hyponatremia improving but may be limited on further aggressive diuresis and moving to a maintenance regimen - Continue increased Carvedilol at 25 mg BID - Daily weights, strict I&Os, low sodium diet (2) Pulmonary edema: Plan: - Pulmonary edema in the setting of likely rate related heart failure and CHF -- HRs are gradually improving into 80s-100s - Continue Lasix and will assess labs - renal function remains intact and BP acceptable (3) Acute respiratory failure with hypoxia: Plan: - RESOLVED - initially on BiPAP and weaned on O2 (wearing for comfort); secondary to CHF -- Likely has ROSALBA - CPAP as tolerated - Continue to diurese; nebulizers PRN - CTA chest - possible small subsegmental RUL PE; no DVT on U/S - Continue Eliquis (4) Pericardial effusion: Plan: - Now small on repeat echo - will need follow-on echo in the short interval - No evidence of tamponade at this time - Continue diureses; if significant tachycardia and hypotensive - stat echo warranted - Cardiology following - appreciate input (5) Cardiomyopathy: Plan: - Echo - 24 June - EF 45-50%; L ventricular systolic function borderline reduced; akinesis of inferior base; small pericardial effusion (improved from 21 June) - Pulmonary status improved continuing to obtain stable rate control - Continue increased Carvedilol 25 mg PO BID; Lisinopril 5 mg daily (6) Afib: Plan: - As above; see if offloading volume assists with rate control - Diurese and monitor/replete electrolytes - Will continue Digoxin 0.25 mg daily - Continue Eliquis, Coreg, and telemetry monitoring - not sure if metoprolol may be a better rate controlling medication or if further rate control is limited (7) Pleural effusion: Plan: - Multifactorial with low albumin and HF - Diurese as above and follow; routine CXR (8) Cervical spine fracture: Plan: - 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 - Evaluated by ortho - planning on conservative measures at this time; poor surgical candidate would need completed at tertiary care; soft collar with transfers and movements (9) Bacteremia: Plan: - Completed treatment for MSSA bacteremia x 6 weeks of Ancef - PICC line in place - no DVT found on U/S; will continue PICC until D/C (10) Joint contracture of left lower leg: Plan: - Wheel chair bound and high fall risk - PT/OT - Multiple assist likely needed with transfers to prevent further injuries (11) Hypertension: Plan: - Appears well controlled - As above diurese, follow hemodynamics - Continue Lisinopril and Coreg (12) Hypoalbuminemia: Plan: - Chronic poor nutrition state - Patient likely unable to care for himself sufficiently (13) Restless leg syndrome: Plan: - Continue ropinirole (14) Anemia: Plan: - HGB stable at this point - likely anemia of chronic disease and RYAN; folate deficiency - Patient denies any blood or dark stools - Completed Venofer treatment (15) S/P PICC central line placement: Plan: - PICC placed 6 weeks ago for MSSA bacteremia - Right upper extremity venous Doppler checked due to right upper extremity edema-negative for DVT - Keep in place until discharge from hospital - His IV antibiotics are completed at this time (16) Rheumatoid arthritis: Plan: - May resume etanercept - uncertain if available in-house; call placed to [facility] (17) DVT prophylaxis: Plan: - Eliquis Disposition: - Plan to go back to [facility] when medically cleared; converted to oral Lasix for maintenance dosing; attempting further rate control with Digoxin possible D/C early next week -- Pt mentioned returning home - he would be unable to care for himself unless he has 24/7 care which would have to come out of pocket but [facility] is listed as guardian? would need discussed with case management - Flores catheter is in place - patient states that was put in here - given him immobility it may be worth continuing at [facility] Admission and Anticipated Discharge Date Admission Date: June 20, 2021 Subjective Reports no complaints today except the bed is uncomfortable. He reports his breathing is fine. HR 90s to low 100s. Continues to be at a negative balance. Tolerating Lasix 40 mg. However arms are getting weaker which may limit oral intake which can be concerning. Review of Systems Review of Systems: REVIEW OF SYSTEMS General/Constitutional: Denies fever/chills ENT: Denies nasal drainage, sore throat Cardiovascular: +edema in b/l upper extremities; Denies chest pain, palpitations Respiratory: Denies cough, sputum, SOB, wheezing GI: Denies nausea, vomiting, abdominal pain : Denies pain with flores catheter Neurologic: Denies dizziness/lightheadedness Skin: Denies rash, itch, new skin changes, easy bruising Physical Exam Physical Exam: PHYSICAL EXAM General Appearance: Chronically ill-appearing in NAD who is A&O HEENT: Head is normocephalic/atraumatic; Hearing grossly intact Neck: Supple; Trachea midline; Neg JVD Heart: irregularly irregular and slightly distant sounds with no M/G/R Lungs: Sporadic exp wheeze but improves with deep breaths and cough; Respirations unlabored; Neg accessory muscle use Abdomen: Soft, non-tender; Positive BS x 4 quadrants Extremities: Neg cyanosis; no edema of b/l lower extremities; edema of UE with R>L Neurological: Speech clear Psychiatric: Appropriate mood/affect Skin: Normal Color; Warm/Dry Results & Data Results & Data ([facility]) Vital Signs (Past 12 Hours) Vital Signs Temp Pulse Pulse Resp BP Pulse Ox 06/30/21 15:00 36.5 C 99 H 22 127/73 97 06/30/21 11:48 36.5 C 97 H 16 114/69 99 06/30/21 08:00 111 H 06/30/21 07:57 37.5 C 108 H 18 115/70 97 06/30/21 07:00 111 H PG Care Time/CCT Total # of Minutes Spent Total Time Spent with Patient: Total time spent is greater than 50% in coordination of care (as documented) at patient's floor/unit and/or counseling patient: Coding Level of Care Code 03686 Subseq Hosp Care Lvl 2 Diagnoses Chronic diastolic CHF (congestive heart failure) I50.32 Pulmonary edema J81.1 Acute respiratory failure with hypoxia J96.01 Pericardial effusion I31.3 Cardiomyopathy I42.9 Afib I48.91 Pleural effusion J90 Cervical spine fracture S12.9XXA Bacteremia R78.81 Joint contracture of left lower leg M24.562 Hypertension I10 Hypoalbuminemia E88.09 Restless leg syndrome G25.81 Anemia D64.9 S/P PICC central line placement Z95.828 Rheumatoid arthritis M06.9 Rheumatoid arthritis location: unspecified site Rheumatoid factor presence: unspecified presence DVT prophylaxis Z29.9 (1) Rheumatoid arthritis Rheumatoid arthritis location: unspecified site Rheumatoid factor presence: unspecified presence Qualified Code(s): M06.9 - Rheumatoid arthritis, unspecified
[2021-06-30] MEDS: ATORVASTATIN 40 MG TAB PO SCH (19:36)
[2021-06-30] MEDS: CYCLOBENZAPRINE HCL 10 MG TAB PO PRN (19:39)
[2021-07-01 08:10] LABS: Hematocrit (blood only) 27.8 % (42-52); Hemoglobin 8.6 g/dL (14.0-18.0); Mean Corpuscular Hemoglobin 24.9 pg (25-34); Mean Corpuscular Hgb Conc 30.9 g/dL (32-36); Mean Corpuscular Volume 80.6 fL (80-100); Mean Platelet Volume 8.6 fL (7.4-10.4); Platelet Count 307 K/uL (130-400); RDW Standard Deviation 55.9 fL (36.4-46.3); Red Blood Count 3.45 M/uL (4.7-6.1); White Blood Count 4.78 K/uL (4.8-10.8)
[2021-07-01] MEDS: DIGOXIN 0.25 MG TAB PO SCH (08:11)
[2021-07-01] MEDS: APIXABAN 5 MG TABLET PO SCH ×2 (08:12→20:27)
[2021-07-01] MEDS: carvediloL 25 MG TAB PO SCH ×2 (08:12→20:27)
[2021-07-01] MEDS: TERAZOSIN HCL 1 MG CAP PO SCH ×2 (08:12→20:27)
[2021-07-01] MEDS: rOPINIRole HCL 1 MG TABLET PO SCH ×2 (08:12→20:27)
[2021-07-01] MEDS: POTASSIUM CHLORIDE CRTAB 20 MEQ TABCR PO SCH (08:12)
[2021-07-01] MEDS: lisinopril 5 MG TAB PO SCH (08:12)
[2021-07-01] MEDS: FUROSEMIDE 40 MG TAB PO SCH (08:12)
[2021-07-01] MEDS: POLYETHYLENE (MIRALAX) 17 GM PACK PO SCH (08:13)
[2021-07-01] MEDS: FOLIC ACID 1 MG TAB PO SCH (08:13)
[2021-07-01] MEDS: DOCUSATE SODIUM 100 MG CAP PO SCH ×2 (08:13→17:30)
[2021-07-01] MEDS: SENNA 8.6 MG TAB PO SCH (08:13)
--- NOTE | 2021-07-01 08:23 | Hospitalist Progress Note ---
Date of Service July 01, 2021 Assessment & Plan (1) Chronic diastolic CHF (congestive heart failure): Plan: - Acute diastolic CHF - presented with acute pulmonary edema, pleural effusions, pericardial effusions, and acute respiratory failure with hypoxia; proBNP александр vated - IMPROVING - weaned off O2 to RA however states O2 helps him feel less panicked and continues to utilize even with appropriate O2 saturations (96% on ROOM AIR, but back on for comfort) - Continue to trend weight and I&O - continues to be a negative fluid balance with a total of -11.9 L which is holding steady - Echo - Jun - EF 45-50%; L ventricular systolic function borderline reduced; akinesis of the inferior base; small pericardial effusion - Had been maintained on Lasix to 40 mg po daily - renal function and vitals stable and will continue to monitor -- Decreased to 20 mg daily as his upper extremities are getting weaker and concern for adequate oral intake (also called [facility] about resuming his RA medications) - Replete electrolytes as needed; continue to improve rate control - hyponatremia improving but may be limited on further aggressive diuresis and moving to a maintenance regimen - Continue increased Carvedilol at 25 mg BID (may need increased to 37.5mg but will monitor for now, HRs in 90s-110s) - Daily weights, strict I&Os, low sodium diet (2) Pulmonary edema: Plan: - Pulmonary edema in the setting of likely rate related heart failure and CHF -- HRs are gradually improving into 80s-110s - Continue Lasix and assess labs in AM - renal function remains intact and BP acceptable (3) Acute respiratory failure with hypoxia: Plan: - RESOLVED - initially on BiPAP and weaned on O2 (wearing for comfort); secondary to CHF -- Likely has ROSALBA - CPAP as tolerated - Continue to diurese; nebulizers PRN - CTA chest - possible small subsegmental RUL PE; no DVT on U/S - Continue Eliquis (4) Pericardial effusion: Plan: - Now small on repeat echo - will need follow-up echo in the short interval - No evidence of tamponade at this time - Continue diureses; if significant tachycardia and hypotensive - stat echo warranted - Cardiology following - appreciate input (5) Cardiomyopathy: Plan: - Echo - 24 June - EF 45-50%; L ventricular systolic function borderline reduced; akinesis of inferior base; small pericardial effusion (improved from 21 June) - Pulmonary status improved continuing to obtain stable rate control - Continue increased Carvedilol 25 mg PO BID; Lisinopril 5 mg daily (6) Afib: Plan: - As above; see if offloading volume assists with rate control - Diurese and monitor/replete electrolytes - Will continue Digoxin 0.25 mg daily -- will check dig level in AM, increase if needed? 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 - Evaluated by ortho - planning on conservative measures at this time; poor surgical candidate would need completed at tertiary care; soft collar with transfers and movements (has been mostly bed bound) (9) Bacteremia: Plan: - Completed treatment for MSSA bacteremia x 6 weeks of Ancef - PICC line in place - no DVT found on U/S; will continue PICC until D/C (10) Joint contracture of left lower leg: Plan: - Wheel chair bound and high fall risk - PT/OT - Multiple assist likely needed with transfers to prevent further injuries (11) Hypertension: Plan: - Appears well controlled - As above diurese, follow hemodynamics - Continue Lisinopril and Coreg (see above) (12) Hypoalbuminemia: Plan: - Chronic poor nutrition state - Patient likely unable to care for himself sufficiently (13) Restless leg syndrome: Plan: - Continue ropinirole 2 PO BID (14) Anemia: Plan: - HGB stable at this point - likely anemia of chronic disease and RYAN; folate deficiency - Patient denies any blood or dark stools - Completed Venofer treatment (15) S/P PICC central line placement: Plan: - PICC placed 6 weeks ago for MSSA bacteremia - Right upper extremity venous Doppler checked due to right upper extremity edema-negative for DVT - Keep in place until discharge from hospital - His IV antibiotics are completed at this time --> D/c picc prior to d/c (16) Rheumatoid arthritis: Plan: - May resume etanercept - uncertain if available in-house; call to [facility] to be made by CM to see if they are able to have this brought for patient, as likely contributing to his weakness as well (17) DVT prophylaxis: Plan: - Eliquis Disposition: - Plan to go back to [facility] when medically cleared; converted to oral Lasix for maintenance dosing; attempting further rate control with Digoxin possible D/C early next week -- Pt mentioned returning home - he would be unable to care for himself unless he has / care which would have to come out of pocket but [facility] is listed as guardian? would need discussed with case management - Flores catheter is in place - patient states that was put in here - given him immobility it may be worth continuing at [facility] (18) Acute on chronic combined systolic (congestive) and diastolic (congestive) heart failure: Admission and Anticipated Discharge Date Admission Date: June 20, 2021 Subjective Patient evaluated this morning. Feeling ok. Thirsty -- provided with orange juice. Would like requip for sleep -- discussed will ensure ordered properly. Doing alright off of oxygen however back on due to comfort, despite stating shortness of breath resolved. No chest pain. Wearing collar at times but he states he "needs a 17 and that's an 18". Will ask nursing if able to obtain. He is not sure who is patient transporter is but wondered about his [facility] -- discussed likely held during infection but could likely resume. Will check with CM to see if [facility] able to bring. No fever, chills, chest pain, shortness of breath, abdominal pain, nausea or vomiting. Questions/concerns addressed at this time. Physical Exam Physical Exam: PHYSICAL EXAM General Appearance: Chronically ill-appearing in NAD who is alert and oriented HEENT: Head is normocephalic/atraumatic; Hearing grossly intact Neck: Supple; Trachea midline; Neg JVD Heart: irregularly irregular and slightly distant sounds with no M/G/R Lungs: Sporadic exp wheeze but improves with deep breaths and cough; bibasilar crackles Respirations unlabored; Neg accessory muscle use, stable on room air, but utilizing 2L NC with SpO2 sat 96% Abdomen: Soft, non-tender; Positive BS x 4 quadrants Extremities: Neg cyanosis; no edema of b/l lower extremities; edema of UE with R>L (decreased) Neurological: Speech clear : flores draining yellow urine Psychiatric: Appropriate mood/affect Skin: Normal Color; Warm/Dry Results & Data Results & Data ([facility]) Vital Signs (Past 12 Hours) Vital Signs Temp Pulse Pulse Resp BP Pulse Ox 07/01/21 08:11 99 H 07/01/21 07:08 36.7 C 87 20 126/72 99 07/01/21 03:54 37.5 C 91 H 20 97/66 L 95 06/30/21 23:10 37.1 C 98 H 20 105/66 97 Laboratory Results 07/01/21 07/01/21 Range/Units 07:55 07:55 WBC 4.78 L (4.8-10.8) K/uL RBC 3.45 L (4.7-6.1) M/uL Hgb 8.6 L (14.0-18.0) g/dL Hct 27.8 L (42-52) % MCV 80.6 (80-100) fL MCH 24.9 L (25-34) pg MCHC 30.9 L (32-36) g/dL RDW Std Deviation 55.9 H (36.4-46.3) fL RDW Coeff of Jayjay 19.0 H (11.5-14.5) % Plt Count 307 (130-400) K/uL MPV 8.6 (7.4-10.4) fL Sodium 130 L (136-145) mmol/L Potassium 4.3 (3.5-5.1) mmol/L Chloride 96 L (98-107) mmol/L Carbon Dioxide 27 (21-32) mmol/L Anion Gap 7.0 (3-11) BUN 21 H (7-18) mg/dl Creatinine 0.34 L (0.6-1.4) mg/dl Est Cr Clr Drug Dosing 220.7 ml/min Est GFR ( Amer) > 150.0 ml/min Est GFR (Non-Af Amer) 132.3 ml/min BUN/Creatinine Ratio 60.6 H (10-20) Glucose 117 H (70-99) mg/dl Calcium 8.0 L (8.5-10.1) mg/dl PG Care Time/CCT Total # of Minutes Spent Total Time Spent with Patient: Total time spent is greater than 50% in coordination of care (as documented) at patient's floor/unit and/or counseling patient: Coding Level of Care Code 79362 Subseq Hosp Care Lvl 3 Diagnoses Chronic diastolic CHF (congestive heart failure) I50.32 Pulmonary edema J81.1 Acute respiratory failure with hypoxia J96.01 Pericardial effusion I31.3 Cardiomyopathy I42.9 Afib I48.91 Pleural effusion J90 Cervical spine fracture S12.9XXA Bacteremia R78.81 Joint contracture of left lower leg M24.562 Hypertension I10 Hypoalbuminemia E88.09 Restless leg syndrome G25.81 Anemia D64.9 S/P PICC central line placement Z95.828 Rheumatoid arthritis M06.9 Rheumatoid arthritis location: unspecified site Rheumatoid factor presence: unspecified presence DVT prophylaxis Z29.9 Acute on chronic combined systolic (congestive) and diastolic (congestive) heart failure I50.43 (1) Rheumatoid arthritis Rheumatoid arthritis location: unspecified site Rheumatoid factor presence: unspecified presence Qualified Code(s): M06.9 - Rheumatoid arthritis, unspecified
[2021-07-01 08:44] LABS: BUN Creatinine Ratio 60.6 (10-20); Blood Urea Nitrogen 21 mg/dl (7-18); Carbon Dioxide 27 mmol/L (21-32); Chloride 96 mmol/L (98-107); Creatinine Clr Calc Pharmacy 220.7 ml/min; Est GFR (African American) > 150.0 ml/min; Est GFR (Non-African American) 132.3 ml/min; Glucose 117 mg/dl (70-99); Potassium 4.3 mmol/L (3.5-5.1); Sodium 130 mmol/L (136-145)
[2021-07-01] MEDS: traMADol HCL 50 MG TABLET PO PRN ×2 (09:01→20:26)
--- NOTE | 2021-07-01 13:02 | XRay Report ---
XR chest 1V portable HISTORY: 66 years-old Male follow up COMPARISON: Chest radiograph 06/27/2021 TECHNIQUE: Portable AP view of the chest FINDINGS: Cardiac silhouette is moderately enlarged. Unchanged positioning of the right-sided PICC. Layering ri ght greater left pleural effusions with bibasilar opacities are redemonstrated, stable to slightly im proved from comparison. Pulmonary vascular congestion. Degenerative changes of the shoulders and spin e. IMPRESSION: 1. Cardiomegaly with pulmonary vascular congestion. 2. Right greater than left layering pleural effusions with bibasilar opacities appear stable to mildl y improved from comparison. 3. Unchanged positioning of the right-sided PICC. ACT 112: Negative or not required by law. The above report was generated using voice recognition software. It may contain grammatical, syntax o r spelling errors. Electronically signed by: Jose Reyes M.D. 07/01/2021 1:01 PM
[2021-07-01] MEDS ORDERED: ETANERCEPT 50 MG/ML SQ ONE (16:00)
[2021-07-01] MEDS: CYCLOBENZAPRINE HCL 10 MG TAB PO PRN (20:26)
[2021-07-01] MEDS: ATORVASTATIN 40 MG TAB PO SCH (20:27)
[2021-07-02 08:04] LABS: Hemoglobin 8.8 g/dL (14.0-18.0); Mean Corpuscular Hemoglobin 24.8 pg (25-34); Mean Corpuscular Hgb Conc 31.4 g/dL (32-36); Mean Corpuscular Volume 78.9 fL (80-100); Mean Platelet Volume 8.9 fL (7.4-10.4); Platelet Count 351 K/uL (130-400); RDW Standard Deviation 55.3 fL (36.4-46.3); Red Blood Count 3.55 M/uL (4.7-6.1); White Blood Count 4.92 K/uL (4.8-10.8)
[2021-07-02] MEDS: TERAZOSIN HCL 1 MG CAP PO SCH ×2 (08:08→20:08)
[2021-07-02] MEDS: APIXABAN 5 MG TABLET PO SCH ×2 (08:08→20:08)
[2021-07-02] MEDS: FOLIC ACID 1 MG TAB PO SCH (08:09)
[2021-07-02] MEDS: DIGOXIN 0.25 MG TAB PO SCH (08:09)
[2021-07-02] MEDS: lisinopril 5 MG TAB PO SCH (08:09)
[2021-07-02] MEDS: carvediloL 25 MG TAB PO SCH ×2 (08:09→20:08)
[2021-07-02] MEDS: SENNA 8.6 MG TAB PO SCH (08:09)
[2021-07-02] MEDS: rOPINIRole HCL 1 MG TABLET PO SCH ×2 (08:09→20:09)
[2021-07-02] MEDS: POTASSIUM CHLORIDE CRTAB 20 MEQ TABCR PO SCH (08:09)
[2021-07-02] MEDS: POLYETHYLENE (MIRALAX) 17 GM PACK PO SCH (08:10)
[2021-07-02] MEDS: DOCUSATE SODIUM 100 MG CAP PO SCH ×2 (08:10→17:04)
[2021-07-02 08:31] LABS: BUN Creatinine Ratio 51.2 (10-20); Calcium 8.1 mg/dl (8.5-10.1); Creatinine Clr Calc Pharmacy 163.1 ml/min; Est GFR (African American) 135.4 ml/min; Est GFR (Non-African American) 116.9 ml/min; Potassium 4.4 mmol/L (3.5-5.1)
[2021-07-02] MEDS ORDERED: FUROSEMIDE 20 MG TAB PO SCH (09:00)
--- NOTE | 2021-07-02 15:30 | Hospitalist Progress Note ---
Date of Service July 02, 2021 Assessment & Plan (1) Chronic diastolic CHF (congestive heart failure): Plan: - Acute on chronic systolic and diastolic CHF - presented with acute pulmonary edema, pleural effusions, pericardial effusions, and acute respiratory failure with hypoxia; proBNP elevated IMPROVING - weaned off O2 to RA however states O2 helps him feel less panicked and continues to utilize even with appropriate O2 saturations (96% on ROOM AIR, but back on for comfort) Echo from 06/24 with EF 45-50%; L ventricular systolic function borderline reduced; akinesis of the inferior base; small pericardial effusion Maintained on lasix 40mg daily but decreased to 20mg on 07/01. Will continue this low dose and encourage oral intake (was up for lunch today by RN) I&Os -- cumulative net negative -12.5L (will also repeat BNP) Weight continues to decline Patient appears dry on examination today but keeping up with oral intake. On reduced lasix to 20mg PO but ?if any benefit from addition of spironolactone - will discuss with cardiology if BP tolerates but will hold off for now as increasing carvedilol to 37.5mg BID for afib w rates 100-110s (could be from some dehydration as well) Continue digoxin 0.25mg for now. Dig level low normal 0.9 and could consider increase but will attempt increased carvedilol as above for now Continue lisinopril 5mg Of note, patient with likely resultant sacral edema in bedbound patient -- initially refused eval wound RN but agreed today. Consult placed. Turn/position, barrier cream and covering for now. Hyponatremia possibly worsened by daily tramadol use -- reported pain controlled and hasn't needed since 07/01. Will d/c at this time and use tylenol as needed Continue to monitor on telemetry to see if we can improve rates/rhythm monitoring (2) Pulmonary edema: Plan: Pulmonary edema in the setting of likely rate related heart failure and CHF HR remain elevated Lasix as above CXR with slight improvement 07/01 Increased carvedilol as above to see if rate control helps edema as appears more dry Renal function stable On supplemental O2 for comfort but has maintained sats on room air --asked RN to wean today and monitor/notify (3) Acute respiratory failure with hypoxia: Plan: RESOLVED - initially on BiPAP and weaned on O2 (wearing for comfort); secondary to CHF -- Likely has ROSALBA - CPAP as tolerated Continue to diurese; nebulizers PRN CTA chest - possible small subsegmental RUL PE; no DVT on U/S. Continue Eliquis Low grade temp, likely atelectasis from effusions --> Incentive spirometer added Continue to monitor (4) Pericardial effusion: Plan: Now small on repeat echo - will need follow-up echo in the short interval No evidence of tamponade at this time Continue diureses; if significant tachycardia and hypotensive - stat echo warranted Cardiology following - appreciate input (5) Cardiomyopathy: Plan: Echo - 24 June - EF 45-50%; L ventricular systolic function borderline reduced; akinesis of inferior base; small pericardial effusion (improved from 21 June) Pulmonary status improved continuing to obtain stable rate control Continue increased Carvedilol to 37.5mg PO BID today as above; Lisinopril 5 mg daily (6) Afib: Plan: As above; see if offloading volume assists with rate control Diurese and monitor/replete electrolytes Will continue Digoxin 0.25 mg daily --> Checked level 07/02-- Dig level low normal 0.9 -- consider increased/alternating doses but increased coreg as above now that BP better controlled Continue Eliquis, monitoring on telemetry (7) Pleural effusion: Plan: Multifactorial with low albumin and HF Diurese as above and follow; follow up CXR improvement but still present (8) Cervical spine fracture: Plan: 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 Evaluated by ortho - planning on conservative measures at this time; poor surgical candidate would need completed at tertiary care; soft collar with transfers and movements (has been mostly bed bound) (9) Bacteremia: Plan: - Completed treatment for MSSA bacteremia x 6 weeks of Ancef - PICC line in place - no DVT found on U/S; will continue PICC until D/C (10) Joint contracture of left lower leg: Plan: - Wheel chair bound and high fall risk - PT/OT - Multiple assist likely needed with transfers to prevent further injuries (11) Hypertension: Plan: Stable, improved - As above dijacklyne, follow hemodynamics - Continue Lisinopril and Coreg (see above) (12) Hypoalbuminemia: Plan: - Chronic poor nutrition state - Patient likely unable to care for himself sufficiently (13) Restless leg syndrome: Plan: - Continue ropinirole 2 PO BID (14) Anemia: Plan: - HGB stable at this point - likely anemia of chronic disease and RYAN; folate deficiency - Patient denies any blood or dark stools - Completed Venofer treatment while inpatient, however MCV again <80 today. Repeat Iron studies in AM (15) S/P PICC central line placement: Plan: - PICC placed 6 weeks ago for MSSA bacteremia - Right upper extremity venous Doppler checked due to right upper extremity edema-negative for DVT - Keep in place until discharge from hospital - His IV antibiotics are completed at this time --> D/c picc prior to d/c (16) Rheumatoid arthritis: Plan: RESUMED etanercept 07/02; call to [facility] to be made by CM to see if they are able to have this brought for patient, as likely contributing to his weakness as well -0-> Improved (17) DVT prophylaxis: Plan: Continue Eliquis Disposition: - Plan to go back to [facility] when medically cleared; converted to oral Lasix for maintenance dosing; attempting further rate control with Digoxin, increased coreg as above Pt resident of [facility], unable to care for himself at home -- to return when medically stable Wound RN consulted for sacral wound -- previously declined possible D/C early next week -- Pt mentioned returning home - he would be unable to care for himself unless he has 01/06 care which would have to come out of pocket but [facility] is listed as guardian? would need discussed with case management - Flores catheter is in place - patient states that was put in here - given him immobility it may be worth continuing at [facility] (18) Acute on chronic combined systolic (congestive) and diastolic (congestive) heart failure: Admission and Anticipated Discharge Date Admission Date: June 20, 2021 Subjective Patient evaluated this afternoon. Feeling better. Breathing at baseline. Denies chest pain or palpitations but HR still to upper 110s on monitor and discussed increasing his BB. Does not want to stay on his right side much, as attempting to take pressure off of sacral wound, seeping clear drainage. Could be from edema from his CHF. Agreeable to wound RN consultation now, as previously refused. Thirsty and requesting cranberry juice. Was able to be sit up in bed and ate meals today per RN. Improved mobility. No fever, chills, chest pain, shortness of breath, abdominal pain, nausea or vomiting at this time. Did have episode of illness/vomiting yesterday after tramadol and he thinks that does is too high. Agreed to lower dose. Pain reported as controlled at current. Physical Exam Physical Exam: PHYSICAL EXAM General Appearance: Chronically ill-appearing in NAD who is alert and oriented HEENT: Head is normocephalic/atraumatic; Hearing grossly intact Neck: Supple; Trachea midline; Neg JVD Heart: irregularly irregular and slightly distant sounds with no M/G/R appreciated. no peripheral edema noted Lungs: Sporadic exp wheeze but improves with deep breaths and cough; bibasilar crackles. Respirations unlabored; Neg accessory muscle use, stable on room air, but utilizing 2L NC with SpO2 sat 96% Abdomen: Soft, non-tender; Positive BS x 4 quadrants Extremities: Neg cyanosis; no edema of b/l lower extremities; edema of UE with R>L (decreased) Neurological: Speech clear : flores draining yellow urine Psychiatric: Appropriate mood/affect Skin: Normal Color; Warm/Dry Sacral/buttocks erythema/lesion, clear drainage noted, no satellite lesions, non-tender to palpation. Results & Data Results & Data ([facility]) Vital Signs (Past 12 Hours) Vital Signs Temp Pulse Pulse Pulse Resp BP Pulse Ox 07/02/21 15:10 36.4 C L 113 H 18 124/77 96 07/02/21 11:00 36.4 C L 104 H 20 134/64 96 07/02/21 08:09 99 H 07/02/21 07:49 106 H 07/02/21 07:31 113 H 22 125/98 95 07/02/21 07:07 37.7 C H 105 H 20 114/69 95 Laboratory Results 07/02/21 07/02/21 07/02/21 Range/Units 07:43 07:43 07:43 WBC 4.92 (4.8-10.8) K/uL RBC 3.55 L (4.7-6.1) M/uL Hgb 8.8 L (14.0-18.0) g/dL Hct 28.0 L (42-52) % MCV 78.9 L (80-100) fL MCH 24.8 L (25-34) pg MCHC 31.4 L (32-36) g/dL RDW Std Deviation 55.3 H (36.4-46.3) fL RDW Coeff of Jayjay 19.0 H (11.5-14.5) % Plt Count 351 (130-400) K/uL MPV 8.9 (7.4-10.4) fL Sodium 129 L (136-145) mmol/L Potassium 4.4 (3.5-5.1) mmol/L Chloride 95 L (98-107) mmol/L Carbon Dioxide 26 (21-32) mmol/L Anion Gap 9.0 (3-11) BUN 23 H (7-18) mg/dl Creatinine 0.46 L (0.6-1.4) mg/dl Est Cr Clr Drug Dosing 163.1 ml/min Est GFR ( Amer) 135.4 ml/min Est GFR (Non-Af Amer) 116.9 ml/min BUN/Creatinine Ratio 51.2 H (10-20) Glucose 117 H (70-99) mg/dl Calcium 8.1 L (8.5-10.1) mg/dl Digoxin 0.9 (0.8-2.0) ng/ml PG Care Time/CCT Total # of Minutes Spent Total Time Spent with Patient: Total time spent is greater than 50% in coordination of care (as documented) at patient's floor/unit and/or counseling patient: Coding Level of Care Code 60376 Subseq Hosp Care Lvl 3 Diagnoses Chronic diastolic CHF (congestive heart failure) I50.32 Pulmonary edema J81.1 Acute respiratory failure with hypoxia J96.01 Pericardial effusion I31.3 Cardiomyopathy I42.9 Afib I48.91 Pleural effusion J90 Cervical spine fracture S12.9XXA Bacteremia R78.81 Joint contracture of left lower leg M24.562 Hypertension I10 Hypoalbuminemia E88.09 Restless leg syndrome G25.81 Anemia D64.9 S/P PICC central line placement Z95.828 Rheumatoid arthritis M06.9 Rheumatoid arthritis location: unspecified site Rheumatoid factor presence: unspecified presence DVT prophylaxis Z29.9 Acute on chronic combined systolic (congestive) and diastolic (congestive) heart failure I50.43 (1) Rheumatoid arthritis Rheumatoid arthritis location: unspecified site Rheumatoid factor presence: unspecified presence Qualified Code(s): M06.9 - Rheumatoid arthritis, unspecified
[2021-07-02] MEDS: ATORVASTATIN 40 MG TAB PO SCH (20:08)
[2021-07-02] MEDS ORDERED: carvediloL 12.5 MG TAB PO SCH (21:00)
[2021-07-02] MEDS: carvediloL 3.125 MG TAB PO SCH (23:05)
[2021-07-03 07:43] LABS: Basophils # (auto) 0.01 K/uL (0-0.2); Basophils % (auto) 0.2 %; Eosinophils # (auto) 0.18 K/uL (0-0.5); Eosinophils % (auto) 4.2 %; Hemoglobin 9.1 g/dL (14.0-18.0); Lymphocytes # (auto) 0.52 K/uL (1.2-3.4); Lymphocytes % (auto) 12.2 %; Mean Corpuscular Hemoglobin 24.9 pg (25-34); Mean Corpuscular Hgb Conc 31.4 g/dL (32-36); Mean Corpuscular Volume 79.5 fL (80-100); Mean Platelet Volume 8.9 fL (7.4-10.4); Monocytes # (auto) 0.31 K/uL (0.11-0.59); Monocytes % (auto) 7.3 %; Neutrophils # (auto) 3.24 K/uL (1.4-6.5); Neutrophils % (auto) 76.1 %; Platelet Count 354 K/uL (130-400); RDW Coefficient of Variation 19.2 % (11.5-14.5); RDW Standard Deviation 55.8 fL (36.4-46.3); Red Blood Count 3.65 M/uL (4.7-6.1); White Blood Count 4.26 K/uL (4.8-10.8)
[2021-07-03 07:47] LABS: INR 1.4 (0.9-1.1); Prothrombin Time 13.5 Seconds (9.0-12.0)
--- NOTE | 2021-07-03 08:16 | Hospitalist Progress Note ---
Date of Service July 03, 2021 Assessment & Plan (1) Chronic diastolic CHF (congestive heart failure): Plan: Acute on chronic systolic and diastolic CHF - presented with acute pulmonary edema, pleural effusions, pericardial effusions, and acute respiratory failure with hypoxia; proBNP elevated IMPROVING - weaned off O2 to RA however states O2 helps him feel less panicked and continues to utilize even with appropriate O2 saturations (96% on ROOM AIR, but back on for comfort) Echo from 06/24 with EF 45-50%; L ventricular systolic function borderline reduced; akinesis of the inferior base; small pericardial effusion Maintained on lasix 40mg daily but decreased to 20mg on 07/01. Will continue this low dose and encourage oral intake (was up for lunch today by RN) I&Os -- cumulative net negative -12.5L (REPEAT BNP 12K FROM 20K) Weight continues to decline Patient appears dry on examination today but keeping up with oral intake by report Will hold lasix for AM and encourage oral intake (but giving albumin x 1 to help w third spacing/volume along with lasix 20mg IV following to prevent worsening overload) Coreg increased to 25 + 3.125mg PO BID and HRs improved to 80s-90s. Continue digoxin 0.25mg for now. --> Dig level low normal 0.9 and could consider increase but will attempt increased carvedilol as above for now Continue lisinopril 5mg Of note, patient with likely resultant sacral edema in bedbound patient -- initially refused eval wound RN but agreed . Consult placed. Turn/position, barrier cream and covering for now. Also with continued iron def anemia. Additional Venofer x 1 today and rescheduled PO iron BID as had been taking outpatient Hyponatremia possibly worsened by daily tramadol use -- reported pain controlled and hasn't needed since 07/01, since d/c'd and utilizing tylenol prn --> Sodium remains at 128 today. Lasix for Am on hold as above. Consider c/w Nephro Continue to monitor on telemetry -- afib HR 80s-90s, some trigeminy. Mag 1.7 and ordered 1gm IV replacement as well (2) Pulmonary edema: Plan: Pulmonary edema in the setting of likely rate related heart failure and CHF HR remain elevated up until today with increased coreg last evening as above Lasix as above CXR with slight improvement 07/01 Renal function stable On supplemental O2 for comfort but has maintained sats on room air --asked RN again to wean today and monitor/notify --> PATIENT ACTUALLY WITH NC ON BUT NO OXYGEN ATTACHED AND IS 94% ON ROOM AIR (3) Acute respiratory failure with hypoxia: Plan: RESOLVED - initially on BiPAP and weaned on O2 (wearing for comfort); secondary to CHF -- Likely has ROSALBA - CPAP as tolerated Continue to diurese; nebulizers PRN CTA chest - possible small subsegmental RUL PE; no DVT on U/S. Continue Eliquis Low grade temp, likely atelectasis from effusions. no further temps --> Incentive spirometer added Continue to monitor (4) Pericardial effusion: Plan: Now small on repeat echo - will need follow-up echo in the short interval No evidence of tamponade at this time Continue diureses; if significant tachycardia and hypotensive - stat echo warranted Cardiology following - appreciate input (5) Cardiomyopathy: Plan: Echo - 24 June - EF 45-50%; L ventricular systolic function borderline reduced; akinesis of inferior base; small pericardial effusion (improved from 21 June) Pulmonary status improved continuing to obtain stable rate control Increased Carvedilol to 25 + 3.125 BID today as above; Lisinopril 5 mg daily (6) Afib: Plan: As above; see if offloading volume assists with rate control Diurese and monitor/replete electrolytes Continue Digoxin 0.25 mg daily --> Checked level 07/02-- Dig level low normal 0.9 -- consider inc reased/alternating doses but increased coreg as above now that BP better controlled and HRs improved. 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 Evaluated by ortho - planning on conservative measures at this time; poor surgi roshni candidate would need completed at tertiary care; soft collar with transfers and movements (has been mostly bed bound) (9) Bacteremia: Plan: - Completed treatment for MSSA bacteremia x 6 weeks of Ancef - PICC line in place - no DVT found on U/S; will continue PICC until D/C (10) Joint contracture of left lower leg: Plan: - Wheel chair bound and high fall risk - PT/OT - Multiple assist likely needed with transfers to prevent further injuries (11) Hypertension: Plan: Stable, improved - As above vitaliy, follow hemodynamics - Continue Lisinopril and Coreg (see above) (12) Hypoalbuminemia: Plan: - Chronic poor nutrition state - Patient likely unable to care for himself sufficiently considering giving dose of albumin to help as above (13) Restless leg syndrome: Plan: - Continue ropinirole 2 PO BID (14) Anemia: Plan: - HGB stable at this point - likely anemia of chronic disease and RYAN; folate deficiency - Patient denies any blood or dark stools - Completed Venofer treatment while inpatient, however MCV again <80 today. Repeat Iron studies in AM Iron remains low -- to be on BID dosing at home but was not resumed. Given Venofer x 1 today, resume PO BID tomorrow Bowel regimen already in place and patient continues to move bowels (15) S/P PICC central line placement: Plan: - PICC placed 6 weeks ago for MSSA bacteremia - Right upper extremity venous Doppler checked due to right upper extremity edema-negative for DVT - Keep in place until discharge from hospital - His IV antibiotics are completed at this time --> D/c picc prior to d/c (16) Rheumatoid arthritis: Plan: RESUMED etanercept 07/02; call to [facility] to be made by CM to see if they are able to have this brought for patient, as likely contributing to his weakness as well --> Improved but now present again, likely from over diuresis as above and holding lasix at this time (17) DVT prophylaxis: Plan: Continue Eliquis Disposition: Plan to go back to [facility] when medically cleared; converted to oral Lasix for maintenance dosing; attempting further rate control with Digoxin, increased coreg as above Pt resident of [facility], unable to care for himself at home -- to return when medically stable Wound RN consulted for sacral wound -- previously declined Possible d/c or Thursday Likely would continue Flores given immobility and prevention infection given sacral erythema possible D/C early next week -- Pt mentioned returning home - he would be unable to care for himself unless he has 24/7 care which would have to come out of pocket but [facility] is listed as guardian? would need discussed with case management - Flores catheter is in place - patient states that was put in here - given him immobility it may be worth continuing at [facility] (18) Acute on chronic combined systolic (congestive) and diastolic (congestive) heart failure: Admission and Anticipated Discharge Date Admission Date: June 20, 2021 Subjective Patient evaluated this afternoon. Sleeping but was up most of the morning. Per nursing, ws able to feed himself breakfast and lunch up in bed. Flores now with concentrated urine and will hold diuretics for morning and encourage nursing to push more oral fluids. HR better and 80s-90s with increase in coreg. Still with sacral edema, clear drainage, non-tender. Shortness of breath with movements but he states this is improved from days prior. Still wanting oxygen for comfort and refusing titration at times. NO fever, chills, chest pain, abdominal pain, nausea or vomiting reported. Large BM this morning. Possible d/c to [facility] tomorrow but will need continuing monitoring of kidney function/electrolytes and diuretics with CHF clinic. Review of Systems Review of Systems: All systems reviewed & are unremarkable except as noted in HPI & below Physical Exam Physical Exam: PHYSICAL EXAM General Appearance: Chronically ill-appearing in NAD who is alert and oriented HEENT: Head is normocephalic/atraumatic; Hearing grossly intact, DRY MM Neck: Supple; Trachea midline; Neg JVD Heart: irregularly irregular (rates 80-90s), slightly distant sounds with no M/ G/R appreciated. no peripheral edema noted Lungs: Sporadic exp wheeze but improves with deep breaths and cough; bibasilar crackles. Respirations unlabored; Neg accessory muscle use, stable on room air, but utilizing 2L NC with SpO2 sat 94% (ON ROOM AIR BUT DOCUMENTED ON NC -- ON FOR COMFORT) Abdomen: Soft, non-tender; Positive BS x 4 quadrants Extremities: Neg cyanosis; no edema of b/l lower extremities; edema of UE with R>L (decreased) Neurological: Speech clear, but slow : flores draining CONCENTRATED DARK yellow urine Psychiatric: Appropriate mood/affect Skin: Normal Color; Warm/Dry Sacral/buttocks erythema/lesion, clear drainage noted, no satellite lesions, non-tender to palpation. Results & Data Results & Data ([facility]) Vital Signs (Past 12 Hours) Vital Signs Temp Pulse Pulse Resp BP Pulse Ox 07/03/21 07:46 36.8 C 95 H 18 151/69 H 98 07/03/21 03:15 36.6 C 100 H 20 122/64 100 07/03/21 00:00 107 H 07/02/21 22:48 36.7 C 93 H 20 124/72 96 Laboratory Results 07/03/21 07/03/21 07/03/21 Range/Units 06:57 06:57 06:57 WBC 4.26 L (4.8-10.8) K/uL RBC 3.65 L (4.7-6.1) M/uL Hgb 9.1 L (14.0-18.0) g/dL Hct 29.0 L (42-52) % MCV 79.5 L (80-100) fL MCH 24.9 L (25-34) pg MCHC 31.4 L (32-36) g/dL RDW Std Deviation 55.8 H (36.4-46.3) fL RDW Coeff of Jayjay 19.2 H (11.5-14.5) % Plt Count 354 (130-400) K/uL MPV 8.9 (7.4-10.4) fL Immature Gran % (Auto) 0.0 % Neut % (Auto) 76.1 % Lymph % (Auto) 12.2 % Luna % (Auto) 7.3 % Eos % (Auto) 4.2 % Baso % (Auto) 0.2 % Neut # (Auto) 3.24 (1.4-6.5) K/uL Lymph # (Auto) 0.52 L (1.2-3.4) K/uL Luna # (Auto) 0.31 (0.11-0.59) K/uL Eos # (Auto) 0.18 (0-0.5) K/uL Baso # (Auto) 0.01 (0-0.2) K/uL Immature Gran # (Auto) 0.00 (0.00-0.02) K/uL PT 13.5 H (9.0-12.0) Seconds INR 1.4 H (0.9-1.1) Sodium 128 L (136-145) mmol/L Potassium 4.3 (3.5-5.1) mmol/L Chloride 94 L (98-107) mmol/L Carbon Dioxide 26 (21-32) mmol/L Anion Gap 8.0 (3-11) BUN 25 H (7-18) mg/dl Creatinine 0.34 L (0.6-1.4) mg/dl Est Cr Clr Drug Dosing 220.7 ml/min Est GFR ( Amer) > 150.0 ml/min Est GFR (Non-Af Amer) 132.3 ml/min BUN/Creatinine Ratio 73.8 H (10-20) Glucose 93 (70-99) mg/dl Calcium 8.4 L (8.5-10.1) mg/dl Magnesium 1.7 L (1.8-2.4) mg/dl Iron 19 L (35-175) mcg/dl Transferrin 115 L (200-360) mg/dl Transferrin % Sat 12 L (20-50) % NT-Pro-B Natriuret Pep (0-900) pg/ml 07/02/21 Range/Units 07:43 WBC (4.8-10.8) K/uL RBC (4.7-6.1) M/uL Hgb (14.0-18.0) g/dL Hct (42-52) % MCV (80-100) fL MCH (25-34) pg MCHC (32-36) g/dL RDW Std Deviation (36.4-46.3) fL RDW Coeff of Jayjay (11.5-14.5) % Plt Count (130-400) K/uL MPV (7.4-10.4) fL Immature Gran % (Auto) % Neut % (Auto) % Lymph % (Auto) % Luna % (Auto) % Eos % (Auto) % Baso % (Auto) % Neut # (Auto) (1.4-6.5) K/uL Lymph # (Auto) (1.2-3.4) K/uL Luna # (Auto) (0.11-0.59) K/uL Eos # (Auto) (0-0.5) K/uL Baso # (Auto) (0-0.2) K/uL Immature Gran # (Auto) (0.00-0.02) K/uL PT (9.0-12.0) Seconds INR (0.9-1.1) Sodium (136-145) mmol/L Potassium (3.5-5.1) mmol/L Chloride (98-107) mmol/L Carbon Dioxide (21-32) mmol/L Anion Gap (3-11) BUN (7-18) mg/dl Creatinine (0.6-1.4) mg/dl Est Cr Clr Drug Dosing ml/min Est GFR ( Amer) ml/min Est GFR (Non-Af Amer) ml/min BUN/Creatinine Ratio (10-20) Glucose (70-99) mg/dl Calcium (8.5-10.1) mg/dl Magnesium (1.8-2.4) mg/dl Iron (35-175) mcg/dl Transferrin (200-360) mg/dl Transferrin % Sat (20-50) % NT-Pro-B Natriuret Pep 46091 H (0-900) pg/ml PG Care Time/CCT Total # of Minutes Spent Total Time Spent with Patient: Total time spent is greater than 50% in coordination of care (as documented) at patient's floor/unit and/or counseling patient: Coding Level of Care Code 67570 Subseq Hosp Care Lvl 3 Diagnoses Chronic diastolic CHF (congestive heart failure) I50.32 Pulmonary edema J81.1 Acute respiratory failure with hypoxia J96.01 Pericardial effusion I31.3 Cardiomyopathy I42.9 Afib I48.91 Pleural effusion J90 Cervical spine fracture S12.9XXA Bacteremia R78.81 Joint contracture of left lower leg M24.562 Hypertension I10 Hypoalbuminemia E88.09 Restless leg syndrome G25.81 Anemia D64.9 S/P PICC central line placement Z95.828 Rheumatoid arthritis M06.9 Rheumatoid arthritis location: unspecified site Rheumatoid factor presence: unspecified presence DVT prophylaxis Z29.9 Acute on chronic combined systolic (congestive) and diastolic (congestive) heart failure I50.43 (1) Rheumatoid arthritis Rheumatoid arthritis location: unspecified site Rheumatoid factor presence: unspecified presence Qualified Code(s): M06.9 - Rheumatoid arthritis, unspecified
[2021-07-03] MEDS: lisinopril 5 MG TAB PO SCH (08:20)
[2021-07-03] MEDS: FOLIC ACID 1 MG TAB PO SCH (08:20)
[2021-07-03] MEDS: carvediloL 3.125 MG TAB PO SCH ×2 (08:21→21:23)
[2021-07-03] MEDS: POTASSIUM CHLORIDE CRTAB 20 MEQ TABCR PO SCH (08:21)
[2021-07-03 08:22] LABS: BUN Creatinine Ratio 73.8 (10-20); Blood Urea Nitrogen 25 mg/dl (7-18); Calcium 8.4 mg/dl (8.5-10.1); Carbon Dioxide 26 mmol/L (21-32); Chloride 94 mmol/L (98-107); Creatinine Clr Calc Pharmacy 220.7 ml/min; Est GFR (African American) > 150.0 ml/min; Est GFR (Non-African American) 132.3 ml/min; Glucose 93 mg/dl (70-99); Iron 19 mcg/dl (35-175); Magnesium 1.7 mg/dl (1.8-2.4); Potassium 4.3 mmol/L (3.5-5.1); Sodium 128 mmol/L (136-145)
[2021-07-03] MEDS: rOPINIRole HCL 1 MG TABLET PO SCH ×2 (08:22→21:19)
[2021-07-03] MEDS: APIXABAN 5 MG TABLET PO SCH ×2 (08:22→21:25)
[2021-07-03] MEDS: TERAZOSIN HCL 1 MG CAP PO SCH ×2 (08:22→21:18)
[2021-07-03] MEDS: SENNA 8.6 MG TAB PO SCH (08:22)
[2021-07-03] MEDS: DIGOXIN 0.25 MG TAB PO SCH (08:22)
[2021-07-03] MEDS: carvediloL 25 MG TAB PO SCH ×2 (08:22→21:24)
[2021-07-03 08:23] LABS: Transferrin 115 mg/dl (200-360); Transferrin Percent Saturation 12 % (20-50)
[2021-07-03] MEDS: POLYETHYLENE (MIRALAX) 17 GM PACK PO SCH (08:24)
[2021-07-03] MEDS: DOCUSATE SODIUM 100 MG CAP PO SCH ×2 (08:24→16:22)
[2021-07-03] MEDS ORDERED: FUROSEMIDE 40 MG TAB PO SCH (09:00)
[2021-07-03] MEDS ORDERED: MAGNESIUM SULFATE / D5W 1 GM/100 ML BAG IV ONE (09:30)
[2021-07-03] MEDS ORDERED: IRON SUCROSE 200 MG in 0.9 % SODIUM CHLORIDE 100 ML IV ONE (09:30)
[2021-07-03] MEDS ORDERED: ALBUMIN 5% 250 ML IV ONE (14:00)
[2021-07-03] MEDS ORDERED: FUROSEMIDE 20 MG in SYRINGE 0 ML IV SCH (15:00)
[2021-07-03] MEDS ORDERED: FERROUS SULFATE 325 MG TAB PO SCH (17:00)
[2021-07-03] MEDS: ATORVASTATIN 40 MG TAB PO SCH (21:24)
[2021-07-04] MEDS: FERROUS SULFATE 325 MG TAB PO SCH ×3 (03:59→15:48)
[2021-07-04] MEDS: CYCLOBENZAPRINE HCL 10 MG TAB PO PRN (04:00)
[2021-07-04] MEDS: ACETAMINOPHEN 325 MG TAB PO PRN ×3 (04:00→21:48)
[2021-07-04 06:08] LABS: Hematocrit (blood only) 25.3 % (42-52); Mean Corpuscular Hgb Conc 31.6 g/dL (32-36); Mean Corpuscular Volume 79.1 fL (80-100); Mean Platelet Volume 8.7 fL (7.4-10.4); Platelet Count 356 K/uL (130-400); RDW Standard Deviation 55.7 fL (36.4-46.3); White Blood Count 5.86 K/uL (4.8-10.8)
[2021-07-04 06:37] LABS: Albumin Level 1.6 gm/dl (3.4-5.0); BUN Creatinine Ratio 53.3 (10-20); Calcium 7.7 mg/dl (8.5-10.1); Creatinine Clr Calc Pharmacy 166.7 ml/min; Est GFR (African American) 136.7 ml/min; Est GFR (Non-African American) 117.9 ml/min; Magnesium 2.1 mg/dl (1.8-2.4)
[2021-07-04 06:40] LABS: Albumin Globulin Ratio 0.4 (0.9-2); Bilirubin,Total 0.5 mg/dl (0.2-1); Globulin 3.8 gm/dl (2.5-4.0); Total Protein 5.4 gm/dl (6.4-8.2)
--- NOTE | 2021-07-04 07:24 | XRay Report ---
XR chest 1V portable CLINICAL HISTORY: f/u chf COMPARISON STUDY: Chest CT June 20, 2021. Chest radiograph July 01, 2021. FINDINGS: Right PICC is in place. 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 There is no pneumothorax. Pulmonary edema persists. Moderate bilateral pleural effusions w ith bibasilar opacities are noted. These have slightly increased. Cardiomediastinal silhouette is sta ble. IMPRESSION: Persistent edema with slight increase in moderate bilateral pleural effusions and associ ated bibasilar opacities. ACT 112: Negative or not required by law. Electronically signed by: Enzo Patel M.D. 07/04/2021 7:23 AM
[2021-07-04] MEDS: THIAMINE HCL 100 MG TAB PO SCH (08:55)
[2021-07-04] MEDS: FOLIC ACID 1 MG TAB PO SCH (08:55)
[2021-07-04] MEDS: SENNA 8.6 MG TAB PO SCH (08:55)
[2021-07-04] MEDS: POTASSIUM CHLORIDE CRTAB 20 MEQ TABCR PO SCH (08:55)
[2021-07-04] MEDS: DIGOXIN 0.25 MG TAB PO SCH (08:55)
[2021-07-04] MEDS: lisinopril 5 MG TAB PO SCH (08:56)
[2021-07-04] MEDS: carvediloL 3.125 MG TAB PO SCH ×2 (08:56→21:47)
[2021-07-04] MEDS: TERAZOSIN HCL 1 MG CAP PO SCH ×2 (08:56→21:46)
[2021-07-04] MEDS: APIXABAN 5 MG TABLET PO SCH ×2 (08:56→21:48)
[2021-07-04] MEDS: DOCUSATE SODIUM 100 MG CAP PO SCH ×2 (08:56→15:46)
[2021-07-04] MEDS: rOPINIRole HCL 1 MG TABLET PO SCH ×2 (08:56→21:46)
[2021-07-04] MEDS: POLYETHYLENE (MIRALAX) 17 GM PACK PO SCH (08:56)
[2021-07-04] MEDS: carvediloL 25 MG TAB PO SCH ×2 (08:56→21:47)
--- NOTE | 2021-07-04 09:46 | Hospitalist Progress Note ---
Date of Service July 04, 2021 Assessment & Plan (1) Acute on chronic combined systolic (congestive) and diastolic (congestive) heart failure: Plan: Acute on chronic systolic and diastolic CHF - presented with acute pulmonary edema, pleural effusions, pericardial effusions, and acute respiratory failure with hypoxia; proBNP elevated IMPROVING Echo from 06/24 with EF 45-50%; L ventricular systolic function borderline reduced; akinesis of the inferior base; small pericardial effusion Maintained on lasix 40mg daily but decreased to 20mg on 07/01. Will continue this low dose and encourage oral intake (was up for lunch today by RN) I&Os -- cumulative net negative -12.8L (REPEAT BNP 12K FROM 20K on 07/02) Daily weights Continuing lasix 40mg daily. Cr stable. Also given albumin x 1 with lasix 20mg IV on 07/03 without change to albumin. Will hold off futher dosing albumin. --> Extra boost this evening and encouraged increased protein in diet Coreg increased to 25 + 3.125mg PO BID and HRs improved and remain stable in the 80s today --> will continue this dose Continue digoxin 0.25mg for now. --> Dig level low normal 0.9 and could consider increase but keep same for now given improvements in rates/BP with increased Coreg Continue lisinopril 5mg Of note, patient with likely resultant sacral edema in bedbound patient -- initially refused eval wound RN but agreed--> evaluated today, instructions placed. also agreed to b/l waffle boots . Also with continued iron def anemia. Additional Venofer x 1 07/03 and rescheduled PO iron BID as had been taking outpatient for 07/04 (monitor for BM since decreased regimen given multiple BM/buttock erythema) HGb 8 but volume up from albumin and continuing 40mg lasix vs decreased 20mg dose Continue to monitor on tele (2) Chronic diastolic CHF (congestive heart failure): (3) Pulmonary edema: Plan: Pulmonary edema in the setting of likely rate related heart failure and CHF HR remain elevated up until today with increased coreg last evening as above Lasix as above CXR with slight improvement 07/01 however worsened 07/04 w slight increase in mod b/l effusions/opacity Renal function stable On supplemental O2 for comfort but has maintained sats on room air --asked RN again to wean today and monitor/notify --> PATIENT ACTUALLY WITH NC ON BUT NO OXYGEN ATTACHED AND IS 98% ON ROOM AIR (4) Acute respiratory failure with hypoxia: Plan: RESOLVED - initially on BiPAP and weaned on O2 (wearing for comfort); secondary to CHF -- Likely has ROSALBA - CPAP as tolerated (refused last night) Continue to diurese; nebulizers PRN CTA chest - possible small subsegmental RUL PE; no DVT on U/S. Continue Eliquis Low grade temp, likely atelectasis from effusions prior. no further temps --> Incentive spirometer added and 98% on RA currently Continue to monitor (5) Pericardial effusion: Plan: Now small on repeat echo - will need follow-up echo in the short interval No evidence of tamponade at this time Continue diureses; if significant tachycardia and hypotensive - stat echo warranted Cardiology following - appreciate input Bps improved with diuresis and titration of coreg as above -- continue (6) Cardiomyopathy: Plan: Echo - 24 June - EF 45-50%; L ventricular systolic function borderline reduced; akinesis of inferior base; small pericardial effusion (improved from 21 June) Pulmonary status improved as rates improved Increased Carvedilol to 25 + 3.125 BID as above and would continue; Lisinopril 5 mg daily (7) Afib: Plan: As above; see if offloading volume assists with rate control Diurese and monitor/replete electrolytes Continue Digoxin 0.25 mg daily --> Checked level 8/24-- Dig level low normal 0.9 -- consider increased/alte rnating doses but increased coreg as above now that BP better controlled and HRs improved. 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 Evaluated by ortho - planning on conservative measures at this time; poor surgical candidate would need completed at tertiary care; soft collar with transfers and movements (has been mostly bed bound) Restarted tramadol but at reduced 25mg prn dose (10) Bacteremia: Plan: - Completed treatment for MSSA bacteremia x 6 weeks of Ancef - PICC line in place - no DVT found on U/S; will continue PICC until D/C (11) Joint contracture of left lower leg: Plan: - Wheel chair bound and high fall risk - PT/OT - Multiple assist likely needed with transfers to prevent further injuries (12) Hypertension: Plan: Stable, improved - As above vitaliy, follow hemodynamics - Continue Lisinopril and Coreg (see above) (13) Hypoalbuminemia: Plan: - Chronic poor nutrition state - Patient likely unable to care for himself sufficiently albumin x 1 on 07/03 without improvement encouraged increased boost supplementations -- called kitchen tonight for extra as did not want much of meal but was thirsty (14) Restless leg syndrome: Plan: Continue ropinirole 2 PO BID (15) Anemia: Plan: - HGB stable at this point - likely anemia of chronic disease and RYAN; folate deficiency - Patient denies any blood or dark stools - Completed Venofer treatment while inpatient, however MCV again <80 Iron remains low -- to be on BID dosing at home but was not resumed but is now Bowel regimen already in place and patient continues to move bowels frequently and de-escalated --> continue to monitor while on PO BID dosing to prevent worsening constipation (16) S/P PICC central line placement: Plan: - PICC placed 6 weeks ago for MSSA bacteremia - Right upper extremity venous Doppler checked due to right upper extremity edema-negative for DVT - Keep in place until discharge from hospital - His IV antibiotics are completed at this time --> D/c picc prior to d/c (17) Rheumatoid arthritis: Plan: RESUMED etanercept 07/02; call to [facility] to be made by CM to see if they are able to have this brought for patient, as likely contributing to his weakness as well --> Improved and continue weekly (18) DVT prophylaxis: Plan: Continue Eliquis Disposition: converted to oral Lasix for maintenance dosing; attempting further rate control with Digoxin, increased coreg as above Plan to go back to [facility] when medically cleared initially, however he states HE WANTS TO GO HOME but extra help would have to come out of pocket Messaged CM as patient not with [facility] as originally thought -- stated by patient and confirmed by CM. =-Now that he wants to go home will need further discussions as would need extra help/24hr care unsafe by himself Discussed at least short term rehab --> he is very much against this but discussed will see how he does with therapy day by day to see what needs look like at d/c but would rec at least short term rehab Likely would continue Flores given immobility and prevention infection given sacral erythema Admission and Anticipated Discharge Date Admission Date: June 20, 2021 Subjective Patient evaluated this evening. Much more alert and oriented today. Reports breathing stable, no chest pain or shortness of breath. Ate all of breakfast and lunch, not much appetite for dinner but did drink boost and agreeable to additional boost. Called kitchen to send up. Patient states he was told about [facility] but he doesn't think people understood he wants to go home. Home handicap accessible >65yo on "[address]" and wants to go home and not to [facility]. He wants to have therapy eval tomorrow and get up to side of bed. Ultimate goal is to go home but will need to have CM further investigate options/contact [facility] to see what we are able to do. Discussed HR well controlled with adjustment in medications and we will continue these as ordered presently. No increased weakness noted but he would like to ensure not labeled a paraplegic as "belgian kidney doctor said I was" and states "I have atrophy". Regarding chronic pain, stated tramadol was taken away -- discussed making him nauseous the other day and he does remember that. Would like to utilize tramadol at lowered dose. Lengthy discussion regarding prn vs scheduled dosing. Patient demonstrated he would like to be offered this before therapy as they show up at different times and scheduling medication may not be as effective as doing "as needed". Wound RN seen today and patient agreeable to wear the waffle boots to prevent worsening of pressure sores to heels. Dressing to buttocks with bloody drainage/sloughing also addressed. Continues with multiple bowel movements, loose but not foul/cdiff smelling. HOlding off on further miralax/colace but will continue senna and monitor. Questions/concerns addressed at this time. Review of Systems Review of Systems: All systems reviewed & are unremarkable except as noted in HPI & below Physical Exam Physical Exam: PHYSICAL EXAM General Appearance: Chronically ill-appearing in NAD who is alert and oriented HEENT: Head is normocephalic/atraumatic; Hearing grossly intact, DRY MM (less today) Neck: Supple; Trachea midline; Neg JVD Heart: irregularly irregular (rates 80s), slightly distant sounds with no M/G/R appreciated. no peripheral edema noted Lungs: Exp wheezing, improving with deep breath/cough, diminished in the bases with crackles. 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 b/l heel wounds (see wound RN pictures) -- b/l heels in waffle boots Results & Data Results & Data ([facility]) Vital Signs (Past 12 Hours) Vital Signs Temp Pulse Pulse Resp BP Pulse Ox 07/04/21 08:55 97 H 07/04/21 07:32 36.8 C 101 H 18 110/64 100 07/04/21 04:00 37.0 C 103 H 20 111/67 98 07/03/21 23:05 91 H 07/03/21 23:00 36.8 C 96 H 18 103/58 L 97 Laboratory Results 07/04/21 07/04/21 07/04/21 Range/Units 05:27 05:27 05:27 WBC 5.86 (4.8-10.8) K/uL RBC 3.20 L (4.7-6.1) M/uL Hgb 8.0 L (14.0-18.0) g/dL Hct 25.3 L (42-52) % MCV 79.1 L (80-100) fL MCH 25.0 (25-34) pg MCHC 31.6 L (32-36) g/dL RDW Std Deviation 55.7 H (36.4-46.3) fL RDW Coeff of Jayjay 19.0 H (11.5-14.5) % Plt Count 356 (130-400) K/uL MPV 8.7 (7.4-10.4) fL Sodium 131 L (136-145) mmol/L Potassium 4.0 (3.5-5.1) mmol/L Chloride 97 L (98-107) mmol/L Carbon Dioxide 28 (21-32) mmol/L Anion Gap 6.0 (3-11) BUN 24 H (7-18) mg/dl Creatinine 0.45 L (0.6-1.4) mg/dl Est Cr Clr Drug Dosing 166.7 ml/min Est GFR ( Amer) 136.7 ml/min Est GFR (Non-Af Amer) 117.9 ml/min BUN/Creatinine Ratio 53.3 H (10-20) Glucose 102 H (70-99) mg/dl Calcium 7.7 L (8.5-10.1) mg/dl Magnesium 2.1 (1.8-2.4) mg/dl Total Bilirubin 0.5 (0.2-1) mg/dl AST 80 H (15-37) U/L ALT 74 (12-78) U/L Alkaline Phosphatase 121 H (45-117) U/L Total Protein 5.4 L (6.4-8.2) gm/dl Albumin 1.6 L (3.4-5.0) gm/dl Globulin 3.8 (2.5-4.0) gm/dl Albumin/Globulin Ratio 0.4 L (0.9-2) Vitamin B1 Pending Diagnostic Findings 07/04/21 07/04/21 07/04/21 Range/Units 05:27 05:27 05:27 WBC 5.86 (4.8-10.8) K/uL RBC 3.20 L (4.7-6.1) M/uL Hgb 8.0 L (14.0-18.0) g/dL Hct 25.3 L (42-52) % MCV 79.1 L (80-100) fL MCH 25.0 (25-34) pg MCHC 31.6 L (32-36) g/dL RDW Std Deviation 55.7 H (36.4-46.3) fL RDW Coeff of Jayjay 19.0 H (11.5-14.5) % Plt Count 356 (130-400) K/uL MPV 8.7 (7.4-10.4) fL Sodium 131 L (136-145) mmol/L Potassium 4.0 (3.5-5.1) mmol/L Chloride 97 L (98-107) mmol/L Carbon Dioxide 28 (21-32) mmol/L Anion Gap 6.0 (3-11) BUN 24 H (7-18) mg/dl Creatinine 0.45 L (0.6-1.4) mg/dl Est Cr Clr Drug Dosing 166.7 ml/min Est GFR ( Amer) 136.7 ml/min Est GFR (Non-Af Amer) 117.9 ml/min BUN/Creatinine Ratio 53.3 H (10-20) Glucose 102 H (70-99) mg/dl Calcium 7.7 L (8.5-10.1) mg/dl Magnesium 2.1 (1.8-2.4) mg/dl Total Bilirubin 0.5 (0.2-1) mg/dl AST 80 H (15-37) U/L ALT 74 (12-78) U/L Alkaline Phosphatase 121 H (45-117) U/L Total Protein 5.4 L (6.4-8.2) gm/dl Albumin 1.6 L (3.4-5.0) gm/dl Globulin 3.8 (2.5-4.0) gm/dl Albumin/Globulin Ratio 0.4 L (0.9-2) Vitamin B1 Pending PG Care Time/CCT Total # of Minutes Spent Total Time Spent with Patient: Total time spent is greater than 50% in coordination of care (as documented) at patient's floor/unit and/or counseling patient: Coding Level of Care Code 79553 Subseq Hosp Care Lvl 3 Diagnoses Chronic diastolic CHF (congestive heart failure) I50.32 Pulmonary edema J81.1 Acute respiratory failure with hypoxia J96.01 Pericardial effusion I31.3 Cardiomyopathy I42.9 Afib I48.91 Pleural effusion J90 Cervical spine fracture S12.9XXA Bacteremia R78.81 Joint contracture of left lower leg M24.562 Hypertension I10 Hypoalbuminemia E88.09 Restless leg syndrome G25.81 Anemia D64.9 S/P PICC central line placement Z95.828 Rheumatoid arthritis M06.9 Rheumatoid arthritis location: unspecified site Rheumatoid factor presence: unspecified presence DVT prophylaxis Z29.9 Acute on chronic combined systolic (congestive) and diastolic (congestive) heart failure I50.43 (1) Rheumatoid arthritis Rheumatoid arthritis location: unspecified site Rheumatoid factor presence: unspecified presence Qualified Code(s): M06.9 - Rheumatoid arthritis, unspecified
[2021-07-04] MEDS: FUROSEMIDE 40 MG TAB PO SCH (10:12)
[2021-07-04] MEDS: traMADol HCL 50 MG TABLET PO PRN (20:01)
[2021-07-04] MEDS: ATORVASTATIN 40 MG TAB PO SCH (21:48)
[2021-07-05] MEDS: traMADol HCL 50 MG TABLET PO PRN (00:13)
[2021-07-05] MEDS: ACETAMINOPHEN 325 MG TAB PO PRN (02:54)
[2021-07-05 05:56] LABS: Hemoglobin 8.7 g/dL (14.0-18.0); Mean Corpuscular Hemoglobin 24.9 pg (25-34); Mean Corpuscular Hgb Conc 31.1 g/dL (32-36); Mean Corpuscular Volume 80.2 fL (80-100); Mean Platelet Volume 8.5 fL (7.4-10.4); Platelet Count 394 K/uL (130-400); Red Blood Count 3.49 M/uL (4.7-6.1); White Blood Count 5.01 K/uL (4.8-10.8)
[2021-07-05 06:32] LABS: Albumin Level 1.7 gm/dl (3.4-5.0); BUN Creatinine Ratio 46.6 (10-20); Calcium 7.8 mg/dl (8.5-10.1); Creatinine Clr Calc Pharmacy 147.1 ml/min; Est GFR (African American) 129.8 ml/min; Potassium 4.1 mmol/L (3.5-5.1)
[2021-07-05 06:35] LABS: Albumin Globulin Ratio 0.4 (0.9-2); Bilirubin,Total 0.5 mg/dl (0.2-1); Total Protein 5.7 gm/dl (6.4-8.2)
[2021-07-05] MEDS: FUROSEMIDE 40 MG TAB PO SCH (08:22)
[2021-07-05] MEDS: FERROUS SULFATE 325 MG TAB PO SCH ×2 (08:22→17:08)
[2021-07-05] MEDS: THIAMINE HCL 100 MG TAB PO SCH (08:23)
[2021-07-05] MEDS: POTASSIUM CHLORIDE CRTAB 20 MEQ TABCR PO SCH (08:23)
[2021-07-05] MEDS: SENNA 8.6 MG TAB PO SCH (08:24)
[2021-07-05] MEDS: DIGOXIN 0.25 MG TAB PO SCH (08:24)
[2021-07-05] MEDS: FOLIC ACID 1 MG TAB PO SCH (08:24)
[2021-07-05] MEDS: carvediloL 25 MG TAB PO SCH (08:25)
[2021-07-05] MEDS: lisinopril 5 MG TAB PO SCH (08:25)
[2021-07-05] MEDS: APIXABAN 5 MG TABLET PO SCH ×2 (08:25→21:34)
[2021-07-05] MEDS: rOPINIRole HCL 1 MG TABLET PO SCH ×2 (08:26→21:33)
[2021-07-05] MEDS: TERAZOSIN HCL 1 MG CAP PO SCH (08:26)
[2021-07-05] MEDS: carvediloL 3.125 MG TAB PO SCH (08:26)
--- NOTE | 2021-07-05 12:30 | Hospitalist Progress Note ---
Date of Service July 05, 2021 Assessment & Plan (1) Acute on chronic combined systolic (congestive) and diastolic (congestive) heart failure: Plan: Acute on chronic systolic and diastolic CHF - presented with acute pulmonary edema, pleural effusions, pericardial effusions, and acute respiratory failure with hypoxia; proBNP elevated IMPROVING Echo from 06/24 with EF 45-50%; L ventricular systolic function borderline reduced; akinesis of the inferior base; small pericardial effusion Maintained on lasix 40mg daily but decreased to 20mg on 07/01. Will continue this low dose and encourage oral intake (was up for lunch today by RN) I&Os -- cumulative net negative -13.1L (REPEAT BNP 12K FROM 20K on 07/02 and will check in AM) Repeat ECHO pending Daily weights Continuing lasix 40mg daily. Cr stable. Also given albumin x 1 with lasix 20mg IV on 07/03 without change to albumin. Will hold off futher dosing albumin. --> encouraging protein increase in diet Coreg increased to 25 + 3.125mg PO BID and HRs improved and remain stable in the 80s today (80-100s overnight) --> will continue this dose and at d/c Continue digoxin 0.25mg for now. --> Dig level low normal 0.9 and could consider increase but keep same for now given improvements in rates/BP with increased Coreg Continue lisinopril 5mg Of note, patient with likely resultant sacral edema in bedbound patient -- initially refused eval wound RN but agreed--> evaluated today, instructions placed. also agreed to b/l waffle boots . Wound cx from heel pending --> no painful no drainage noted today Also with continued iron def anemia. Additional Venofer x 1 07/03 and rescheduled PO iron BID as had been taking outpatient for 07/04 (monitor for BM since decreased regimen given multiple BM/buttock erythema) Continue to monitor (2) Open wound of heel: Plan: L heel with drainage noted Elevated on pillows (waffle boots when agreeable) Wound RN on consult (initially denied willingness to see him) Culture obtained -- gram negative bacilli Temp last night 38C Blood cultures pending procal 0.16 Xray pending Monitor cx, but will start Cipro Continue to monitor (3) Chronic diastolic CHF (congestive heart failure): Plan: as above (4) Pulmonary edema: Plan: Pulmonary edema in the setting of likely rate related heart failure and CHF HR remain elevated up until today with increased coreg last evening as above Lasix as above CXR with slight improvement 07/01 however worsened 07/04 w slight increase in mod b/l effusions/opacity Renal function stable On supplemental O2 for comfort but has maintained sats on room air --asked RN again to wean today and monitor/notify --> PATIENT ACTUALLY WITH NC ON BUT NO OXYGEN ATTACHED --> Has been using while sleeping -- not able to tolerate CPAP due to reported claustrophobic (5) Acute respiratory failure with hypoxia: Plan: RESOLVED - initially on BiPAP and weaned on O2 (wearing for comfort); secondary to CHF -- Likely has ROSALBA - CPAP as tolerated (refused last night) Continue to diurese; nebulizers PRN CTA chest - possible small subsegmental RUL PE; no DVT on U/S. Continue Eliquis Low grade temp, likely atelectasis from effusions prior. no further temps --> 38C temp overnight --> Incentive spirometer added and 98% on RA currently (was 97% on 2L while sleeping) NO SHORTNESS OF BREATH REPORTED Continue to monitor (6) Pericardial effusion: Plan: Now small on repeat echo - will need follow-up echo in the short interval No evidence of tamponade at this time Continue diureses; if significant tachycardia and hypotensive , stat echo Cardiology following - appreciate input Bps improved with diuresis and titration of coreg as above -- continue Repeat ECHO pending from today (7) Cardiomyopathy: Plan: Echo - 24 June - EF 45-50%; L ventricular systolic function borderline reduced; akinesis of inferior base; small pericardial effusion (improved from 21 June) Pulmonary status improved as rates improved Increased Carvedilol to 25 + 3.125 BID as above and would continue; Lisinopril 5 mg daily (8) Afib: Plan: As above; see if offloading volume assists with rate control Diurese and monitor/replete electrolytes Continue Digoxin 0.25 mg daily --> Checked level 07/02-- Dig level low normal 0.9 -- consider increased/alternating doses but increased coreg as above now that BP better controlled and HRs improved. 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 Evaluated by ortho - planning on conservative measures at this time; poor surgical candidate would need completed at tertiary care; soft collar with tr ansfers and movements (has been mostly bed bound) Restarted tramadol but at reduced 25mg prn dose -- reported effective (11) Bacteremia: Plan: - Completed treatment for MSSA bacteremia x 6 weeks of Ancef - PICC line in place - no DVT found on U/S; will continue PICC until D/C (12) Joint contracture of left lower leg: Plan: - Wheel chair bound and high fall risk - PT/OT - Multiple assist likely needed with transfers to prevent further injuries (13) Hypertension: Plan: Stable, improved - As above diurese, follow hemodynamics - Continue Lisinopril and Coreg (see above) (14) Hypoalbuminemia: Plan: - Chronic poor nutrition state - Patient likely unable to care for himself sufficiently albumin x 1 on 07/03 without improvement encouraged increased boost supplementations -- called kitchen tonight for extra as did not want much of meal but was thirsty (15) Restless leg syndrome: Plan: Continue ropinirole 2 PO BID (16) Anemia: Plan: - HGB stable at this point - likely anemia of chronic disease and RYAN; folate deficiency - Patient denies any blood or dark stools - Completed Venofer treatment while inpatient, however MCV again <80 Iron remains low -- to be on BID dosing at home but was not resumed but is now Bowel regimen already in place and patient continues to move bowels frequently and de-escalated --> continue to monitor while on PO BID dosing to prevent worsening constipation Hgb stable and improved to 8.7 today Continue to monitor (17) S/P PICC central line placement: Plan: - PICC placed 6 weeks ago for MSSA bacteremia - Right upper extremity venous Doppler checked due to right upper extremity edema-negative for DVT - Keep in place until discharge from hospital - His IV antibiotics are completed at this time --> D/c picc prior to d/c wound on heel as above -- continue for now to see if further IV needed (18) Rheumatoid arthritis: Plan: RESUMED etanercept 07/02; call to [facility] to be made by CM to see if they are able to have this brought for patient, as likely contributing to his weakness as well --> Improved and continue weekly (19) DVT prophylaxis: Plan: Continue Eliquis Disposition: converted to oral Lasix for maintenance dosing; attempting further rate control with Digoxin, increased coreg as above Plan to go back to [facility] when medically cleared initially, however he states HE WANTS TO GO HOME but extra help would have to come out of pocket Messaged CM as patient not with [facility] as originally thought -- stated by patient and confirmed by CM. =-Now that he wants to go home will need further discussions as would need extra help/24hr care unsafe by himself Discussed at least short term rehab --> he is very much against this but discussed will see how he does with therapy day by day to see what needs look l daniel at d/c but would rec at least short term rehab OOA to see patient today. May need to file court order if not agreeable for willing to go to [facility] as unable to pay for private pay and unable to care for self at home Likely would continue Flores given immobility and prevention infection given sacral erythema Admission and Anticipated Discharge Date Admission Date: June 20, 2021 Subjective Patient evaluated this morning. Feeling well. Breathing stable. Heels up on pillows. Belly feeling much better. Pain controlled. Thirsty and eating/drinking well. Flores with yellow concentrated urine. Discussed OOA will be in for discussion as patient not safe for home at this time to discuss options. He is worried his apartment has been wrecked/messed up at [facility] but does not have the number to look up to call. Discussed I will loo k up number for him and provide to RN for him to call. He did not want to have CM alerted to call/check on this. No fever, chills, chest pain, shortness of breath, abd pain, nausea, vomiting at this time. --> Did have temp 38C last evening though, Bcx pending. Will obtain xray as well. Waiting for therapy to help get him up/possibly to edge of bed today per his request if able. Believes there may be infection to his L heel -- wound cx pending from yesterday with gram negative bacilli Questions/concerns addressed at this time. He admits he is pessimistic about outcomes of getting back to his apartment and being broke after all of this. Has been afib 80s on telemetry, last night was afib with PVCs 80s-100s. Review of Systems Review of Systems: All systems reviewed & are unremarkable except as noted in HPI & below Physical Exam Physical Exam: PHYSICAL EXAM General Appearance: Chronically ill-appearing in NAD who is alert and oriented HEENT: Head is normocephalic/atraumatic; Hearing grossly intact, DRY MM (less today) Neck: Supple; Trachea midline; Neg JVD Heart: irregularly irregular (rates 86), slightly distant sounds with no M/G/R appreciated. no peripheral edema noted Lungs: Exp wheezing, improving with deep breath/cough, diminished in the bases with crackles. Respirations unlabored; not tachypneic, no cough. Neg accessory muscle use, stable on room air, but utilizing 2L NC with SpO2 sat 98% ON ROOM AIR but wearing NC when sleeping Abdomen: Soft, non-tender; Positive BS x 4 quadrants Extremities: Neg cyanosis; no edema of b/l lower extremities; edema of UE with R>L (almost resolved) Neurological: Speech clear, atrophy of b/l LE : flores draining concentrated yellow urine Psychiatric: Appropriate mood/affect Skin: cool, dry Sacral/buttocks erythema/lesion, bloody spotting/drainage, no satellite lesions, non-tender to palpation. b/l heel wounds (see wound RN pictures) -- b/l heels elevated on pillows, some drainage noted to L heel Results & Data Results & Data ([facility]) Vital Signs (Past 12 Hours) Vital Signs Temp Pulse Pulse Resp BP Pulse Ox 07/05/21 11:23 36.8 C 87 16 116/68 97 07/05/21 08:28 36.7 C 102 H 16 90/61 L 98 07/05/21 08:00 99 H 07/05/21 04:00 36.9 C 104 H 18 102/68 96 Laboratory Results 07/05/21 07/05/21 07/05/21 Range/Units 05:30 05:30 05:30 WBC (4.8-10.8) K/uL RBC (4.7-6.1) M/uL Hgb (14.0-18.0) g/dL Hct (42-52) % MCV (80-100) fL MCH (25-34) pg MCHC (32-36) g/dL RDW Std Deviation (36.4-46.3) fL RDW Coeff of Jayjay (11.5-14.5) % Plt Count (130-400) K/uL MPV (7.4-10.4) fL Sodium 131 L (136-145) mmol/L Potassium 4.1 (3.5-5.1) mmol/L Chloride 99 (98-107) mmol/L Carbon Dioxide 26 (21-32) mmol/L Anion Gap 6.0 (3-11) BUN 24 H (7-18) mg/dl Creatinine 0.51 L (0.6-1.4) mg/dl Est Cr Clr Drug Dosing 147.1 ml/min Est GFR ( Amer) 129.8 ml/min Est GFR (Non-Af Amer) 112.0 ml/min BUN/Creatinine Ratio 46.6 H (10-20) Glucose 89 (70-99) mg/dl Calcium 7.8 L (8.5-10.1) mg/dl Phosphorus 3.0 (2.5-4.9) mg/dl Magnesium 2.0 (1.8-2.4) mg/dl Total Bilirubin 0.5 (0.2-1) mg/dl AST 52 H (15-37) U/L ALT 66 (12-78) U/L Alkaline Phosphatase 120 H (45-117) U/L Total Protein 5.7 L (6.4-8.2) gm/dl Albumin 1.7 L (3.4-5.0) gm/dl Globulin 4.0 (2.5-4.0) gm/dl Albumin/Globulin Ratio 0.4 L (0.9-2) 25-OH Vitamin D Total 39.0 (30-100) ng/ml Procalcitonin 0.16 (0-0.5) ng/ml 07/05/21 Range/Units 05:30 WBC 5.01 (4.8-10.8) K/uL RBC 3.49 L (4.7-6.1) M/uL Hgb 8.7 L (14.0-18.0) g/dL Hct 28.0 L (42-52) % MCV 80.2 (80-100) fL MCH 24.9 L (25-34) pg MCHC 31.1 L (32-36) g/dL RDW Std Deviation 56.0 H (36.4-46.3) fL RDW Coeff of Jayjay 19.0 H (11.5-14.5) % Plt Count 394 (130-400) K/uL MPV 8.5 (7.4-10.4) fL Sodium (136-145) mmol/L Potassium (3.5-5.1) mmol/L Chloride (98-107) mmol/L Carbon Dioxide (21-32) mmol/L Anion Gap (3-11) BUN (7-18) mg/dl Creatinine (0.6-1.4) mg/dl Est Cr Clr Drug Dosing ml/min Est GFR ( Amer) ml/min Est GFR (Non-Af Amer) ml/min BUN/Creatinine Ratio (10-20) Glucose (70-99) mg/dl Calcium (8.5-10.1) mg/dl Phosphorus (2.5-4.9) mg/dl Magnesium (1.8-2.4) mg/dl Total Bilirubin (0.2-1) mg/dl AST (15-37) U/L ALT (12-78) U/L Alkaline Phosphatase (45-117) U/L Total Protein (6.4-8.2) gm/dl Albumin (3.4-5.0) gm/dl Globulin (2.5-4.0) gm/dl Albumin/Globulin Ratio (0.9-2) 25-OH Vitamin D Total (30-100) ng/ml Procalcitonin (0-0.5) ng/ml PG Care Time/CCT Total # of Minutes Spent Total Time Spent with Patient: Total time spent is greater than 50% in coordination of care (as documented) at patient's floor/unit and/or counseling patient: Coding Level of Care Code 83413 Subseq Hosp Care Lvl 3 Diagnoses Acute on chronic combined systolic (congestive) and diastolic (congestive) heart failure I50.43 Chronic diastolic CHF (congestive heart failure) I50.32 Pulmonary edema J81.1 Acute respiratory failure with hypoxia J96.01 Pericardial effusion I31.3 Cardiomyopathy I42.9 Afib I48.91 Pleural effusion J90 Cervical spine fracture S12.9XXA Bacteremia R78.81 Joint contracture of left lower leg M24.562 Hypertension I10 Hypoalbuminemia E88.09 Restless leg syndrome G25.81 Anemia D64.9 S/P PICC central line placement Z95.828 Rheumatoid arthritis M06.9 Rheumatoid arthritis location: unspecified site Rheumatoid factor presence: unspecified presence DVT prophylaxis Z29.9 Open wound of heel S91.309A (1) Rheumatoid arthritis Rheumatoid arthritis location: unspecified site Rheumatoid factor presence: unspecified presence Qualified Code(s): M06.9 - Rheumatoid arthritis, unspecified
--- NOTE | 2021-07-05 12:38 | XCELERA ---
[id number]
[2021-07-05] MEDS: CIPROFLOXACIN / D5W 400 MG/200 ML BAG IV SCH (14:00)
--- NOTE | 2021-07-05 14:16 | XRay Report ---
XR foot LT 2V CLINICAL HISTORY: R heel pain, wound COMPARISON STUDY: None. FINDINGS: The bones are osteopenic. There is mild diffuse soft tissue swelling within the left foot. There are flexion deformities within the toes with lateral subluxation/dislocation of the second thro ugh fifth toes. There is also lateral angulation at the first MTP joint. There is a small soft tissue and bony bunion. Moderate severe degenerative changes seen throughout the left foot. No fractures. N o cortical destruction to suggest osteomyelitis. IMPRESSION: 1. No cortical destruction to suggest an osteomyelitis. 2. Diffuse soft tissue swelling within the left foot. 3. Osteopenia and moderate to severe degenerative changes. 4. Flexion deformities with lateral subluxation/dislocation within the toes. This is likely chronic. No fractures. ACT 112: Negative or not required by law. Electronically signed by: Jacyk Morocho M.D. 07/05/2021 2:14 PM
[2021-07-05 18:07] LABS: BUN Creatinine Ratio 37.3 (10-20); Calcium 7.8 mg/dl (8.5-10.1); Creatinine Clr Calc Pharmacy 104.2 ml/min; Est GFR (African American) 112.7 ml/min; Est GFR (Non-African American) 97.2 ml/min; Magnesium 2.1 mg/dl (1.8-2.4); Potassium 4.2 mmol/L (3.5-5.1)
[2021-07-05] MEDS: ATORVASTATIN 40 MG TAB PO SCH (21:33)
[2021-07-05] MEDS ORDERED: SODIUM CHLORIDE 0.9% 1000ML 1,000 ML IV SCH (23:08)
--- NOTE | 2021-07-05 23:21 | Communication Note ---
Date of Service: July 05, 2021 Called by bedside nursing, given continued persistent concerns for bradycardia and hypotension. Patient remained asymptomatic throughout this entire time, however per nursing reports patient was working with physical therapy sometime earlier today with potential for movement of head, and since that time patient has been persistently hypotensive and bradycardic. Patient has known past history of odontoid fracture, and has not been utilizing c-collar for several weeks/months. On my presentation to bedside, patient denying any new radicular/numbness or tingling symptoms, denying symptoms with slow heart rate or low BP. Lab work collected at that time demonstrated a lactate of 1.6 with potassium of 4.2 and magnesium of 2.1. EKG demonstrating bradycardia with a rate of 39 and demonstrating concern for junctional bradycardia. Given extensive diuresis being attempted for last several days concern for potential dehydration versus decreased intravascular volume. Trial of 1 L normal saline bolus with trial of albumin; this provided no improvement in either blood pressure or heart rate. Given amount of beta-blockers previously utilized in order to control A. fib with RVR trial of IV glucagon for potential beta-lois toxicity. This temporarily showed improvement in heart rate into the upper 40s/50s, and BP into the upper 80s low 90s. Given lack of meaningful response to glucagon with concern for potential for deterioration and need for more advanced monitoring will transfer to PCU. Additionally ordered CT C-spine for monitoring of odontoid fracture and potential cervical spinal canal stenosis. This seems less likely to be due to cervical stenosis in the setting of no radicular symptoms and given previous history of odontoid fracture would expect more significant that facets if intrusion into spinal canal. Potentially development of tachybradycardia syndrome versus beta-lois toxicity. Held diuretics, beta-blockers, and antihypertensives in the setting of persistent hypotension and bradycardia. Continue to monitor for development of symptoms or worsening. Resident Activity Tracking Resident Involvement: Resident Care Provided Care Provided: [facility] Medicine
[2021-07-05 23:45] LABS: Basophils # (auto) 0.01 K/uL (0-0.2); Basophils % (auto) 0.2 %; Eosinophils # (auto) 0.31 K/uL (0-0.5); Eosinophils % (auto) 7.4 %; Hematocrit (blood only) 26.6 % (42-52); Hemoglobin 8.3 g/dL (14.0-18.0); Immature Granulocytes # (auto) 0.01 K/uL (0.00-0.02); Immature Granulocytes % (auto) 0.2 %; Lymphocytes # (auto) 0.65 K/uL (1.2-3.4); Lymphocytes % (auto) 15.4 %; Mean Corpuscular Hemoglobin 25.2 pg (25-34); Mean Corpuscular Volume 80.9 fL (80-100); Mean Platelet Volume 8.8 fL (7.4-10.4); Monocytes # (auto) 0.22 K/uL (0.11-0.59); Monocytes % (auto) 5.2 %; Neutrophils # (auto) 3.01 K/uL (1.4-6.5); Neutrophils % (auto) 71.6 %; Platelet Count 382 K/uL (130-400); RDW Coefficient of Variation 19.3 % (11.5-14.5); Red Blood Count 3.29 M/uL (4.7-6.1); White Blood Count 4.21 K/uL (4.8-10.8)
[2021-07-05 23:46] LABS: Mean Corpuscular Hgb Conc 31.2 g/dL (32-36)
[2021-07-06 00:03] LABS: Alanine Aminotransferase 59 U/L (12-78); Albumin Level 1.5 gm/dl (3.4-5.0); Aspartate Aminotransferase 43 U/L (15-37); BUN Creatinine Ratio 43.2 (10-20); Blood Urea Nitrogen 30 mg/dl (7-18); Calcium 7.6 mg/dl (8.5-10.1); Carbon Dioxide 26 mmol/L (21-32); Chloride 99 mmol/L (98-107); Creatinine Clr Calc Pharmacy 108.7 ml/min; Est GFR (African American) 114.7 ml/min; Est GFR (Non-African American) 98.9 ml/min; Glucose 93 mg/dl (70-99); Potassium 4.2 mmol/L (3.5-5.1); Sodium 131 mmol/L (136-145)
[2021-07-06 00:08] LABS: Albumin Globulin Ratio 0.4 (0.9-2); Alkaline Phosphatase 109 U/L (45-117); Bilirubin,Total 0.3 mg/dl (0.2-1); Total Protein 5.5 gm/dl (6.4-8.2); Troponin I < 0.015 ng/ml (0-0.045)
[2021-07-06] MEDS: ALBUMIN 25% 12.5 GM/50 ML VIAL IV SCH ×3 (01:53→04:13)
[2021-07-06] MEDS: CIPROFLOXACIN / D5W 400 MG/200 ML BAG IV SCH ×2 (02:22→13:24)
[2021-07-06] MEDS ORDERED: GLUCAGON 5 MG in SYRINGE 0 ML IV ONE (02:45)
--- NOTE | 2021-07-06 06:55 | CT Scan Report ---
CT SCAN OF THE CERVICAL SPINE CLINICAL HISTORY: Neck pain. COMPARISON STUDY: CT of the cervical spine dated 05/11/2021 and 10/15/2014. TECHNIQUE: CT scan of the cervical spine is performed from the skull base to the upper thoracic spine . Images are reviewed in the axial, sagittal, and coronal planes. IV contrast was not administered fo r this examination. A dose lowering technique was utilized adhering to the principles of ALARA. CT DOSE: 333.53 mGy.cm FINDINGS: Skeletal structures: The skeletal structures are well mineralized. There is a chronic nonunited fract ure through the base of the odontoid process versus os odontoideum. There is only 2 mm of offset of t he odontoid process with the C2 vertebral body. Advanced productive change is seen at the atlantodent al articulation. No acute fracture or subluxation is identified Involving the cervical spine. Vertebr al body height and alignment are maintained. Small anterior osteophytes are seen throughout. The odon toid process and lateral masses are intact. The atlantoaxial articulation is preserved. The spinous p rocesses appear intact. There is a chronic superior endplate compression deformity of T1. There is mi ld to moderate multilevel cervical spondylosis. Uncovertebral and facet arthropathy contribute to sivan ral foraminal stenosis at several levels. A small bone island is incidentally noted in the body of C7 . Intervertebral discs: Mild to moderate disc space narrowing is seen at all cervical levels between C3 -C4 and C6-C7. Central canal: A posterior disc osteophyte complex at C5-C6 may contribute to acquired compromise of the central canal. Soft tissues: The prevertebral and paraspinous soft tissues are within normal limits. There is athero sclerotic calcification of the carotid bulbs. A right PICC line is noted. Calvarium: The visualized calvarium at the skull base appears intact. Brain parenchyma: Partially visualized brain parenchyma at the skull base is within normal limits. Sinuses and mastoids: The visualized paranasal sinuses are clear. The mastoid air cells are well pneu matized. Lung apices: There are right larger than left pleural effusions. IMPRESSION: 1. There is no evidence of acute fracture or subluxation involving the cervical spine. 2. There is unchanged appearance of a chronic nonunited fracture through the base of the odontoid pro cess versus an os odontoideum. A nonunited fracture is favored. 3. There is only mild offset of the odontoid process with the body of C2, and advanced degenerative c hange is seen at the atlantodental articulation. 4. Osteopenia and spondylotic change as above. 5. Mild chronic superior endplate compression deformity of T1. 6. Right larger than left pleural effusions. ACT 112: Negative or not required by law. Electronically signed by: Axel Cochran M.D. 07/06/2021 6:54 AM
--- NOTE | 2021-07-06 07:40 | Hospitalist Progress Note ---
Date of Service July 06, 2021 Assessment & Plan (1) Bradycardia: Plan: pt developed slow heart rate, low heart pressure, was without symptoms, did have glucagon with maybe mild response. pt had a cervical spine x ray without much change in cervical spine fracture. stopped coreg, dig level is therapeutic, may have sick sinus or similar (2) Acute on chronic combined systolic (congestive) and diastolic (congestive) heart failure: Plan: Acute on chronic systolic and diastolic CHF - presented with acute pulmonary edema, pleural effusions, pericardial effusions, and acute respiratory failure with hypoxia; proBNP elevated Due to bradycardia beta-blockers and GREGG inhibitor have been discontinued due to hypotension diuretics have been discontinued Echo from 06/24 with EF 45-50%; L ventricular systolic function borderline reduced; akinesis of the inferior base; small pericardial effusion holding diuretic. Continue digoxin 0.25mg for now. --> Dig level therapeutic due to low blood pressure hold lisinopril and coreg Also with continued iron def anemia. Additional Venofer x 1 07/03 and rescheduled PO iron BID as had been taking outpatient for 07/04 (monitor for BM since decreased regimen given multiple BM/buttock erythema) (3) Open wound of heel: Plan: L heel with drainage noted Pseudomonas and MRSA have been cultured. Pseudomonas is pansensitive will be on cipro and Vanco but keep an eye out for the 3rd organism to result Blood cultures pending procal 0.16 plain film negative for osteo and pt could not tolerate mri states he would need to be knocked out (4) Acute respiratory failure with hypoxia: Plan: RESOLVED - initially on BiPAP and weaned on O2 (wearing for comfort); secondary to CHF -- Likely has ROSALBA - CPAP as tolerated (refused last night) CTA chest - possible small subsegmental RUL PE; no DVT on U/S. 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 Evaluated by ortho - planning on conservative measures at this time; poor surgical candidate would need completed at tertiary care; soft collar with transfers and movements (has been mostly bed bound), pt has been non compliant with collar. repeat CT neck did not show any changes in fracture Restarted tramadol but at reduced 25mg prn dose -- reported effective (8) Bacteremia: Plan: - Completed treatment for MSSA bacteremia x 6 weeks of Ancef - PICC line in place - no DVT found on U/S; will continue PICC now may need further treatment of the MRSA foot infection (9) Joint contracture of left lower leg: Plan: - Wheel chair bound and high fall risk - PT/OT - Multiple assist likely needed with transfers to prevent further injuries (10) Hypoalbuminemia: Plan: moderate protein malnutrition, po diet supplements (11) Restless leg syndrome: Plan: Continue ropinirole 2 PO BID (12) Anemia: Plan: - HGB stable at this point - likely anemia of chronic disease and RYAN; folate deficiency - Completed Venofer treatment while inpatient, however MCV again <80 Iron remains low -- to be on BID (13) S/P PICC central line placement: Plan: - PICC placed 6 weeks ago for MSSA bacteremia - Right upper extremity venous Doppler checked due to right upper extremity edema-negative for DVT (14) Rheumatoid arthritis: Plan: RESUMED etanercept 07/02; call to [facility] to be made by CM to see if they are able to have this brought for patient, as likely contributing to his weakness as well (15) DVT prophylaxis: Plan: Continue Eliquis Admission and Anticipated Discharge Date Admission Date: June 20, 2021 Subjective Patient has no particular complaints his heart rate and blood pressure of come up since last evening. His beta-blockers have been held. He remains on digoxin and been therapeutic. He did have a culture result positive for MRSA and Pseudomonas of his heel on the left. He did not tolerate MRI Review of Systems Review of Systems: Mild distress and fatigue no headache, no visual changes no speech or swallowing issues no chest pain, pressure or palpitations no shortness of breath, cough or wheezes no abdominal pain, nausea or vomiting, diarrhea or constipation no dysuria, hematuria or frequency no focal joint pain or swelling or drainage from his left heel but no particular pain or swelling no back pain, CVA tenderness or radicular pain There is a small 1 cm ulceration of his heel which appears to be draining no focal signs of weakness or numbness or altered sensation no complaints of anxiety or depression.. Physical Exam Physical Exam: The patient appeared in no apparent distress Vital signs as documented. Head exam is normocephalic atraumatic Neck is without JVD, thyromegaly, or carotid bruits. Lungs are clear to auscultation, decreased breath sounds at the bases Cardiac exam, Rhythm is regular.. Systolic murmur is heard Abdominal exam reveals normal bowel sounds, soft non tender, no masses Extremities are trace edematous bilaterally and left heel is a dressing in place which some yellow-green drainage upon it with a 1 cm heel ulcer present could not tell what steps due to his positioning spasticity and the location of the ulcer Neurologic exam is alert and oriented, peripheral neuropathy is present Psychologically is without concerns for anxiety or depression Results & Data Results & Data ([facility]) Vital Signs (Past 12 Hours) Vital Signs Temp Pulse Pulse Resp BP BP Pulse Ox 07/06/21 04:56 46 L 07/06/21 04:50 98.4 F 50 L 20 92/54 L 93 07/06/21 04:10 44 L 84/46 L 97 07/06/21 03:00 98.2 F 45 L 18 95/54 L 98 07/06/21 01:25 42 L 90/52 L 07/06/21 01:10 42 L 18 82/46 L 97 07/06/21 00:10 42 L 86/49 L 07/05/21 23:09 98.1 F 43 L 20 83/46 L 99 PG Care Time/CCT Total # of Minutes Spent Total Time Spent with Patient: Total time spent is greater than 50% in coordination of care (as documented) at patient's floor/unit and/or counseling patient: Coding Level of Care Code 47656 Subseq Hosp Care Lvl 3 Diagnoses Acute on chronic combined systolic (congestive) and diastolic (congestive) heart failure I50.43 Open wound of heel S91.309A Acute respiratory failure with hypoxia J96.01 Afib I48.91 Pleural effusion J90 Cervical spine fracture S12.9XXA Bacteremia R78.81 Joint contracture of left lower leg M24.562 Hypoalbuminemia E88.09 Restless leg syndrome G25.81 Anemia D64.9 S/P PICC central line placement Z95.828 Rheumatoid arthritis M06.9 Rheumatoid arthritis location: unspecified site Rheumatoid factor presence: unspecified presence DVT prophylaxis Z29.9 Bradycardia R00.1 (1) Rheumatoid arthritis Rheumatoid arthritis location: unspecified site Rheumatoid factor presence: unspecified presence Qualified Code(s): M06.9 - Rheumatoid arthritis, unspecified
[2021-07-06] MEDS ORDERED: VANCOMYCIN CONSULT ACTIVE PRN (08:59)
[2021-07-06] MEDS ORDERED: carvediloL 12.5 MG TAB PO SCH (09:00)
--- NOTE | 2021-07-06 09:09 | XRay Report ---
SINGLE VIEW CHEST CLINICAL HISTORY: Bradycardia. Hypotension. FINDINGS: An AP, portable, semierect chest radiograph is compared to study dated 07/04/2021. The exami nation is degraded by portable technique, apical positioning, and patient rotation. A right PICC line is unchanged in position. The heart is enlarged noting atherosclerotic calcification of the thoracic aorta. There is pulmonary vascular congestion. There are layering pleural effusions with bibasilar c onsolidation. No pneumothorax is seen. The skeletal structures are osteopenic. The bony thorax is maria dolores ssly intact. Advanced arthritic change is seen in the shoulders. IMPRESSION: 1. Cardiomegaly with evidence of congestive failure. This is similar to yesterday. 2. Layering pleural effusions with bibasilar consolidation. ACT 112: Negative or not required by law. Electronically signed by: Axel Cochran M.D. 07/06/2021 9:07 AM
[2021-07-06] MEDS ORDERED: VANCOMYCIN HCL 2,000 MG in SODIUM CHLORIDE 0.9% 500 ML IV ONE (09:45)
--- NOTE | 2021-07-06 10:02 | Pharmacy Report ---
Pharmacy Abx Dose Short Note - Date of Service July 06, 2021 - Assessment & Plan Assessment 66 year with possible foot infection. Recently completed ancef course x 6 weeks for MSSA bacteremia on the . Started on ciprofloxacin as Gm negative bacilli in foot culture on . Culture now with MRSA and PA. Vancomycin added today to cover MRSA. Foot xray neg for osteo Vancomycin * Ordered loading dose of vancomycin 2000 mg x 1 for this AM (~24 mg/kg) * Will start maintenance dose of vancomycin 1250 mg (~15 mg/kg) iv q 12 hrs * Estimated dosing to provide AUC 400-600 and trough 15-20 mcg/ml * Plan to check trough prior to the 0900 to assess dosing Pharmacy will continue to follow and will adjust dose/frequency as necessary. Thank you.
[2021-07-06] MEDS: FOLIC ACID 1 MG TAB PO SCH (10:05)
[2021-07-06] MEDS: FERROUS SULFATE 325 MG TAB PO SCH ×2 (10:06→16:36)
[2021-07-06] MEDS: rOPINIRole HCL 1 MG TABLET PO SCH ×2 (10:06→21:35)
[2021-07-06] MEDS: APIXABAN 5 MG TABLET PO SCH ×2 (10:06→21:35)
[2021-07-06] MEDS: SENNA 8.6 MG TAB PO SCH (10:06)
[2021-07-06] MEDS: THIAMINE HCL 100 MG TAB PO SCH (10:06)
[2021-07-06] MEDS: POTASSIUM CHLORIDE CRTAB 20 MEQ TABCR PO SCH (10:08)
[2021-07-06] MEDS: traMADol HCL 50 MG TABLET PO PRN ×2 (13:59→21:32)
[2021-07-06] MEDS ORDERED: VANCOMYCIN HCL 1,000 MG in SODIUM CHLORIDE 0.9% 250 ML IV SCH (18:00)
--- NOTE | 2021-07-06 19:17 | Magnetic Resonance Report ---
MRI OF THE LEFT ANKLE WITHOUT IV CONTRAST CLINICAL HISTORY: Right heel pain. Wound. COMPARISON STUDY: Radiographs of the left foot dated 07/05/2021. TECHNIQUE: MRI of the left ankle was initiated. Axial T1 and fat sat proton density sequences were ob tained. These are significantly motion degraded. The patient then declined further imaging. FINDINGS: A cutaneous ulceration is identified along the dorsolateral aspect of the heel. There is no clear cortical disruption or significant marrow edema within the underlying calcaneus to suggest ost eomyelitis on the provided sequences. This is incompletely evaluated. There is no MRI evidence of fra cture on the provided images. Degenerative change is noted at the tibiotalar articulation. Soft tissu e edema is present throughout the ankle and hindfoot, greatest laterally. There is tendinopathy and p aratenonitis of the Achilles tendon which appears intact. There is a split-thickness tear of the ty neus brevis tendon. The anterior and posterior tendons are grossly intact. There is likely chronic te aring of the anterior tibiofibular and talofibular ligaments. There is generalized atrophy and myosit is of the regional musculature. IMPRESSION: 1. Significantly motion degraded and incomplete examination. The patient declined further imaging. 2. A large cutaneous wound is seen along the posterolateral aspect of the heel. Surrounding soft tiss ue edema may represent cellulitis and clinical correlation will be required. 3. There is no clear marrow change or cortical disruption identified in the underlying calcaneus typi roshni for osteomyelitis. This is incompletely assessed. 4. Tendinopathy and paratenonitis of the Achilles tendon. 5. Split-thickness tear of the peroneus brevis tendon. Dictated: 07/06/2021 6:09 PM Transcribed: 07/06/2021 7:15 PM Makayla [id number] [email or web address] Electronically signed by: Axel Cochran M.D. 07/06/2021 7:15 PM
[2021-07-06] MEDS: VANCOMYCIN HCL 1,250 MG in SODIUM CHLORIDE 0.9% 250 ML IV SCH (21:23)
[2021-07-06] MEDS: ATORVASTATIN 40 MG TAB PO SCH (21:34)
[2021-07-07] MEDS: CIPROFLOXACIN / D5W 400 MG/200 ML BAG IV SCH ×2 (02:18→14:26)
[2021-07-07 06:03] LABS: Hematocrit (blood only) 26.6 % (42-52); Hemoglobin 8.2 g/dL (14.0-18.0); Mean Corpuscular Hemoglobin 24.9 pg (25-34); Mean Corpuscular Hgb Conc 30.8 g/dL (32-36); Mean Corpuscular Volume 80.9 fL (80-100); Mean Platelet Volume 8.5 fL (7.4-10.4); Platelet Count 431 K/uL (130-400); RDW Coefficient of Variation 19.1 % (11.5-14.5); RDW Standard Deviation 57.2 fL (36.4-46.3); Red Blood Count 3.29 M/uL (4.7-6.1); White Blood Count 4.08 K/uL (4.8-10.8)
[2021-07-07 06:23] LABS: BUN Creatinine Ratio 55.8 (10-20); Creatinine Clr Calc Pharmacy 153.1 ml/min; Est GFR (Non-African American) 113.9 ml/min
--- NOTE | 2021-07-07 07:39 | Electrocardiogram Report ---
Test Reason : Blood Pressure : / mmHG Vent. Rate : 039 BPM Atrial Rate : 288 BPM P-R Int : 000 ms QRS Dur : 098 ms QT Int : 448 ms P-R-T Axes : 000 075 -23 degrees QTc Int : 360 ms Atrial fibrillation with slow ventricular response with Junctional bradycardia with occasional Beena ture ventricular complexes Low voltage QRS Septal infarct , age undetermined Abnormal ECG When compared with ECG of 20-JUN-2021 11:30, Vent. rate has decreased BY 83 BPM Nonspecific T wave abnormality no longer evident in Lateral leads Confirmed by Jorge Davis ([id number]) on 07/07/2021 7:39:10 AM Referred By: [facility] Confirmed By:Jorge Davis
[2021-07-07] MEDS: VANCOMYCIN HCL 1,250 MG in SODIUM CHLORIDE 0.9% 250 ML IV SCH ×2 (09:10→20:58)
[2021-07-07] MEDS: FOLIC ACID 1 MG TAB PO SCH (09:11)
[2021-07-07] MEDS: rOPINIRole HCL 1 MG TABLET PO SCH ×2 (09:11→20:58)
[2021-07-07] MEDS: carvediloL 3.125 MG TAB PO SCH ×2 (09:11→20:59)
[2021-07-07] MEDS: DIGOXIN 0.25 MG TAB PO SCH (09:11)
[2021-07-07] MEDS: FERROUS SULFATE 325 MG TAB PO SCH ×2 (09:12→17:08)
[2021-07-07] MEDS: THIAMINE HCL 100 MG TAB PO SCH (09:12)
[2021-07-07] MEDS: SENNA 8.6 MG TAB PO SCH (09:12)
[2021-07-07] MEDS: APIXABAN 5 MG TABLET PO SCH ×2 (09:12→20:58)
[2021-07-07] MEDS: POTASSIUM CHLORIDE CRTAB 20 MEQ TABCR PO SCH (09:17)
[2021-07-07] MEDS ORDERED: VANCOMYCIN TROUGH ONE (09:30)
[2021-07-07] MEDS: traMADol HCL 50 MG TABLET PO PRN ×2 (11:07→20:59)
--- NOTE | 2021-07-07 16:05 | Hospitalist Progress Note ---
Date of Service July 07, 2021 Assessment & Plan (1) Bradycardia: Plan: pt developed slow heart rate, low heart pressure, was without symptoms, did have glucagon with maybe mild response. pt had a cervical spine x ray without much change in cervical spine fracture. stopped coreg, dig level is therapeutic, may have sick sinus or similar did restart digoxin and coreg in afternoon 07/07/21 (2) Acute on chronic combined systolic (congestive) and diastolic (congestive) heart failure: Plan: Acute on chronic systolic and diastolic CHF - presented with acute pulmonary edema, pleural effusions, pericardial effusions, and acute respiratory failure with hypoxia; proBNP elevated Due to bradycardia restart coreg, and GREGG inhibitor continue to be held until we see how bp responds Echo from 06/24 with EF 45-50%; L ventricular systolic function borderline reduced; akinesis of the inferior base; small pericardial effusion holding diuretic. Continue digoxin 0.25mg for now. --> Dig level therapeutic due to low blood pressure hold lisinopril Also with continued iron def anemia. Additional Venofer x 1 07/03 and rescheduled PO iron BID as had been taking outpatient for 07/04 (monitor for BM since decreased regimen given multiple BM/buttock erythema) (3) Open wound of heel: Plan: L heel with drainage noted Pseudomonas and MRSA have been cultured. Pseudomonas is pansensitive will be on cipro and Vanco but keep an eye out for the 3rd organism to result Blood cultures pending procal 0.16 plain film negative for osteo and pt could not tolerate mri states he would need to be knocked out (4) Acute respiratory failure with hypoxia: Plan: RESOLVED - initially on BiPAP and weaned on O2 (wearing for comfort); secondary to CHF -- Likely has ROSALBA - CPAP as tolerated (refused last night) CTA chest - possible small subsegmental RUL PE; no DVT on U/S. 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 Evaluated by ortho - planning on conservative measures at this time; poor surgical candidate would need completed at tertiary care; soft collar with transfers and movements (has been mostly bed bound), pt has been non compliant with collar. repeat CT neck did not show any changes in fracture Restarted tramadol but at reduced 25mg prn dose -- reported effective pt has lower extremity spasticity and this resulted in heel ulcer PT states is 100% functional loss. [facility] called and made CM aware that he will need to come in and talk to the pt before they can submit a court order saying he is declining to go willingly to [facility] and that it is not safe for him to return home. 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 (8) Bacteremia: Plan: - Completed treatment for MSSA bacteremia x 6 weeks of Ancef - PICC line in place - no DVT found on U/S; will continue PICC now may need further treatment of the MRSA/Pseudomonas foot infection (9) Joint contracture of left lower leg: Plan: - Wheel chair bound and high fall risk - PT/OT - Multiple assist likely needed with transfers to prevent further injuries (10) Hypoalbuminemia: Plan: moderate protein malnutrition, po diet supplements (11) Restless leg syndrome: Plan: Continue ropinirole 2 PO BID (12) Anemia: Plan: - HGB stable anemia of chronic disease and RYAN; folate deficiency - Completed Venofer treatment while inpatient, however MCV again <80 Iron remains low -- to be on BID (13) Rheumatoid arthritis: Plan: RESUMED etanercept 07/02; call to [facility] to be made by CM to see if they are able to have this brought for patient, as likely contributing to his weakness as well (14) DVT prophylaxis: Plan: Continue Eliquis Admission and Anticipated Discharge Date Admission Date: June 20, 2021 Subjective Patient is very debilitated, he has spastic contractures, he is resistant to consider placement in snf, He did have a culture result positive for MRSA and Pseudomonas of his heel on the left. He did not tolerate MRI Review of Systems Review of Systems: Mild distress and fatigue no headache, no visual changes no speech or swallowing issues no chest pain, pressure or palpitations no shortness of breath, cough or wheezes no abdominal pain, nausea or vomiting, diarrhea or constipation no dysuria, hematuria or frequency no focal joint pain or swelling or drainage from his left heel but no particular pain or swelling no back pain, CVA tenderness or radicular pain There is a small 1 cm ulceration of his heel which appears to be draining pt has significant right shoulder pain, and seems to have spasticity to legs bilaterally Constitutional: no fever and no chills Ear, Nose, Mouth, Throat: no nasal congestion, no facial pain and no sore throat + mild L upper lip swelling (bit lip) Respiratory: no cough, no chest congestion and no dyspnea Cardiovascular: no chest pain and no orthopnea Gastrointestinal: no abdominal pain, no nausea and no vomiting Musculoskeletal: + neck pain and + joint pain (reports increase joint pains since off Enbrel) Neurologic: no tingling and no numbness Physical Exam Physical Exam: The patient appeared in no apparent distress Vital signs as documented. Head exam is normocephalic atraumatic Neck is without JVD, thyromegaly, or carotid bruits. Lungs are clear to auscultation, decreased breath sounds at the bases Cardiac exam, Rhythm is regular.. Systolic murmur is heard Abdominal exam reveals normal bowel sounds, soft non tender, no masses Extremities are trace edematous bilaterally and left heel is a dressing in place which some yellow-green drainage upon it with a 1 cm heel ulcer present could not tell what steps due to his positioning spasticity and the location of the ulcer Neurologic exam is alert and oriented, peripheral neuropathy is present, he seems to have some lower extremity spascity Psychologically is without concerns for anxiety or depression Results & Data Results & Data ([facility]) Vital Signs (Past 12 Hours) Vital Signs Temp Pulse Pulse Resp BP Pulse Ox 07/07/21 15:39 97.7 F 94 H 19 145/90 H 99 07/07/21 12:08 97.9 F 97 H 19 137/77 97 07/07/21 09:11 90 07/07/21 07:57 92 H PG Care Time/CCT Total # of Minutes Spent Total Time Spent with Patient: Total time spent is greater than 50% in coordination of care (as documented) at patient's floor/unit and/or counseling patient: Coding Level of Care Code 71448 Subseq Hosp Care Lvl 3 Diagnoses Bradycardia R00.1 Acute on chronic combined systolic (congestive) and diastolic (congestive) heart failure I50.43 Open wound of heel S91.309A Acute respiratory failure with hypoxia J96.01 Afib I48.91 Pleural effusion J90 Cervical spine fracture S12.9XXA Bacteremia R78.81 Joint contracture of left lower leg M24.562 Hypoalbuminemia E88.09 Restless leg syndrome G25.81 Anemia D64.9 Rheumatoid arthritis M06.9 Rheumatoid arthritis location: unspecified site Rheumatoid factor presence: unspecified presence DVT prophylaxis Z29.9 (1) Rheumatoid arthritis Rheumatoid arthritis location: unspecified site Rheumatoid factor presence: unspecified presence Qualified Code(s): M06.9 - Rheumatoid arthritis, unspecified
[2021-07-07] MEDS: ATORVASTATIN 40 MG TAB PO SCH (20:58)
[2021-07-08] MEDS: CIPROFLOXACIN / D5W 400 MG/200 ML BAG IV SCH ×2 (02:02→13:16)
--- NOTE | 2021-07-08 07:15 | Hospitalist Progress Note ---
Date of Service July 08, 2021 Assessment & Plan (1) Acute on chronic combined systolic (congestive) and diastolic (congestive) heart failure: Plan: Main issue for admission Acute on chronic systolic and diastolic CHF - presented with acute pulmonary edema, pleural effusions, pericardial effusions, and acute respiratory failure with hypoxia; proBNP elevated Echo from 06/24 with EF 45-50%; L ventricular systolic function borderline reduced; akinesis of the inferior base; small pericardial effusion holding diuretic. Repeat CXR in AM. (2) Open wound of heel: Plan: L heel with drainage noted Pseudomonas (pansensitive) and MRSA have been cultured. Ciprofloxacin started 07/05 Vancomycin started 07/06 Blood cultures negative at 48 hours. Procalcitonin 0.16 [07/05] MRI incomplete but no definitive osteomyelitis, Split-thickness tear of the peroneus brevis tendon, Tendinopathy and paratenonitis of the Achilles tendon Waffle boot for ambulation (3) Acute respiratory failure with hypoxia: Plan: - initially on BiPAP and weaned on O2 (wearing for comfort); secondary to CHF - Likely has ROSALBA - CPAP as tolerated (declined by patient) CTA chest - possible small subsegmental RUL PE; no DVT on U/S. Continue Eliquis (4) Afib: Plan: As above; now with bradycardia, dig level is normal Continue Digoxin 0.25 mg daily Switch Coreg for metoprolol due to hypotension with bradycardia Continue Eliquis, monitoring on telemetry (5) Bradycardia: Plan: as above fo a. 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 Evaluated by ortho - planning on conservative measures at this time; poor surgical candidate would need completed at tertiary care; soft collar with transfers and movements (has been mostly bed bound), pt has been non compliant with collar. Repeat CT neck did not show any changes in fracture Restarted tramadol but at reduced 25mg prn dose -- reported effective Pt has lower extremity spasticity and this resulted in heel ulcer PT states is 100% functional loss. OOA called and made CM aware that he will need to come in and talk to the pt before they can submit a court order saying he is declining to go willingly to [facility] and that it is not safe for him to return home. OA mold making supervisor, Apollo, reached out to CM to let CM know that they will file the court order early next week, when they hear that the pt is medically stable for discharge. (8) Bacteremia: Plan: - Completed treatment for MSSA bacteremia x 6 weeks of Ancef - PICC line in place - no DVT found on U/S; will continue PICC now may need further treatment of the MRSA/Pseudomonas foot infection (9) Joint contracture of left lower leg: Plan: - Wheel chair bound and high fall risk - PT/OT - Multiple assist likely needed with transfers to prevent further injuries (10) Hypoalbuminemia: Plan: moderate protein malnutrition, po diet supplements (11) Restless leg syndrome: Plan: Continue ropinirole 2 PO BID (12) Anemia: Plan: - Hemoglobin stable, anemia of chronic disease and RYAN; folate deficiency - Completed Venofer treatment while inpatient, however MCV again <80 Iron remains low -- to be on BID (13) Rheumatoid arthritis: Plan: RESUMED etanercept 07/02; call to [facility] to be made by CM to see if they are able to have this brought for patient, as likely contributing to his weakness as well (14) DVT prophylaxis: Plan: Continue Eliquis Admission and Anticipated Discharge Date Admission Date: June 20, 2021 Subjective Heart rate appears much improved after Coreg held/reduced. No significant change in shortness of breath. No leg swelling. Telemetry: A. fib 90-100s. Restarted on Coreg last night but on much lower dose. Review of Systems Review of Systems: All systems reviewed & are unremarkable except as noted in HPI & below Physical Exam Constitutional: + ill appearing (chronically ill appearing); no acute distress Eyes: + anicteric sclerae; normal pupil size ENMT: external ear and nose normal, oropharynx normal Respiratory: normal respiratory effort, lungs clear to auscultation Cardiovascular: Rate/Rhythm: + tachycardic and + irregularly irregular Heart Sounds: no murmur Gastrointestinal (Abdomen): Inspection/Auscultation: abdomen normal to inspection; abdomen not distended Percussion/Palpation: abdomen soft; abdomen nontender Skin: + lesion (Left heel 2 cm superficial open wound, no erythema or drainage) Neurologic: moves all extremities and awake Psychiatric: Orientation: alert, oriented to person, oriented to place and cooperative Results & Data Results & Data ([facility]) Vital Signs (Past 12 Hours) Vital Signs Temp Pulse Pulse Resp BP Pulse Ox 07/08/21 03:34 36.5 C 94 H 20 121/74 97 07/07/21 23:59 81 07/07/21 23:17 37.2 C 107 H 18 137/76 98 07/07/21 20:00 88 07/07/21 19:33 36.4 C L 83 18 149/89 H 97 PG Care Time/CCT Total # of Minutes Spent Total Time Spent with Patient: Total time spent is greater than 50% in coordination of care (as documented) at patient's floor/unit and/or counseling patient: Coding Level of Care Code 16677 Subseq Hosp Care Lvl 2 Diagnoses Bradycardia R00.1 Acute on chronic combined systolic (congestive) and diastolic (congestive) heart failure I50.43 Open wound of heel S91.309A Acute respiratory failure with hypoxia J96.01 Afib I48.91 Pleural effusion J90 Cervical spine fracture S12.9XXA Bacteremia R78.81 Joint contracture of left lower leg M24.562 Hypoalbuminemia E88.09 Restless leg syndrome G25.81 Anemia D64.9 Rheumatoid arthritis M06.9 Rheumatoid arthritis location: unspecified site Rheumatoid factor presence: unspecified presence DVT prophylaxis Z29.9 (1) Rheumatoid arthritis Rheumatoid arthritis location: unspecified site Rheumatoid factor presence: unspecified presence Qualified Code(s): M06.9 - Rheumatoid arthritis, unspecified
[2021-07-08] MEDS ORDERED: VANCOMYCIN TROUGH ONE (08:30)
[2021-07-08] MEDS: traMADol HCL 50 MG TABLET PO PRN ×2 (09:08→21:28)
[2021-07-08] MEDS: VANCOMYCIN HCL 1,250 MG in SODIUM CHLORIDE 0.9% 250 ML IV SCH (09:10)
[2021-07-08] MEDS: SENNA 8.6 MG TAB PO SCH (09:10)
[2021-07-08] MEDS: METOPROLOL SUCC 50MG EXT REL TAB PO SCH (09:10)
[2021-07-08] MEDS: FERROUS SULFATE 325 MG TAB PO SCH ×2 (09:10→18:33)
[2021-07-08] MEDS: DIGOXIN 0.25 MG TAB PO SCH (09:12)
[2021-07-08] MEDS: APIXABAN 5 MG TABLET PO SCH ×2 (09:12→21:28)
[2021-07-08] MEDS: rOPINIRole HCL 1 MG TABLET PO SCH ×2 (09:12→21:28)
[2021-07-08] MEDS: THIAMINE HCL 100 MG TAB PO SCH (09:17)
[2021-07-08] MEDS: POTASSIUM CHLORIDE CRTAB 20 MEQ TABCR PO SCH (09:25)
[2021-07-08] MEDS: FOLIC ACID 1 MG TAB PO SCH (09:41)
[2021-07-08 09:52] LABS: Calcium 8.1 mg/dl (8.5-10.1); Creatinine Clr Calc Pharmacy 153.1 ml/min; Est GFR (Non-African American) 113.9 ml/min; Potassium 4.5 mmol/L (3.5-5.1)
--- NOTE | 2021-07-08 10:48 | Pharmacy Report ---
Pharmacy Vanc AUC Short Note - Date of Service July 08, 2021 - Assessment & Plan Assessment 66 year old M receiving vancomycin for treatment of MRSA foot infection. Pertinent microbiologic data includes: foot culture culture growing MRSA. Day # 3 of antimicrobial therapy. Plan Vancomycin * AUC/SONIDO is the preferred PK/PD target for vancomycin * AUC guided dosing is effective and associated with decreased risk of nephrotoxicity compared to traditional trough targets * Trough level of 22 mcg/mL is predicted to achieve AUC of 644 mg/L.hr and may be associated with a 19 % risk of nephrotoxicity * Change to 1000 mg IV every 12 hours (risk of toxicity is 13% BUT AUC goal is 521 mg/L.hr which is preferred in MRSA infection). Wait 6 hours after last dose given to allow trough to fall to goal level. * Trough to be ordered based upon clinical picture Pharmacy will continue to follow and will adjust dose/frequency as necessary. Thank you.
--- NOTE | 2021-07-08 11:12 | Consultation Report ---
DATE OF SERVICE: 07/08/2021 I was asked to see Mr. Dailey about his left heel. He reports having a wound on his left heel for a couple months. It was worse and now it has gotten better. He has been in the hospital because of multiple medical issues including cardiac issues. He has had a cervical spine fracture. He is functionally paraplegic. X-rays of the left foot demonstrate chronic deformities. No acute process. No evidence of infection or osteomyelitis. A limited MRI is reviewed, which demonstrates the wound, but no underlying eviden ce of calcaneal osteomyelitis. White count normal, hemoglobin 8, hematocrit 27, platelets 431. Labs are noted. PHYSICAL EXAMINATION: Afebrile. Examination reveals significant bilateral lower extremity contractu res. The calves are supported by pillows; however, the heels are in contact with the bed. There is an Optifoam dressing in place, which is partially disheveled because of contact. The right heel look s fine. The left heel shows a 10-15 mm superficial wound in the posterolateral aspect of the heel. This goes into the dermal layer. There is no exposed bone. There is no abscess purulence, drainage, erythema or induration. He can wiggle his toes and ankles slightly. Dorsalis pedis is 1+ bilateral ly. Posterior tibial pulses are perhaps trace. There is no acute ischemia. The foot is warm with c apillary refill less than 2 seconds. He has a left heel wound, which is secondary to pressure. He is not a diabetic. He is not dysvascul ar. This has excellent potential to heal, but requires offloading. I would recommend consultation w ith the wound care nurse for a wound care plan if this has not already been done. Additionally, I wo uld recommend the use of waffle boots or something similar to keep the heels up off of the bed. Ther e is no need for surgical intervention. He does not have deep infection. Job ID: [id number]
[2021-07-08] MEDS: ATORVASTATIN 40 MG TAB PO SCH (21:28)
[2021-07-09] MEDS: CIPROFLOXACIN / D5W 400 MG/200 ML BAG IV SCH (00:42)
[2021-07-09] MEDS: VANCOMYCIN HCL 1,000 MG in SODIUM CHLORIDE 0.9% 250 ML IV SCH ×2 (03:24→15:56)
[2021-07-09 09:09] LABS: Hematocrit (blood only) 26.1 % (42-52); Mean Corpuscular Hemoglobin 24.5 pg (25-34); Mean Corpuscular Hgb Conc 30.7 g/dL (32-36); Mean Corpuscular Volume 80.1 fL (80-100); Mean Platelet Volume 8.5 fL (7.4-10.4); Platelet Count 392 K/uL (130-400); RDW Standard Deviation 55.9 fL (36.4-46.3); Red Blood Count 3.26 M/uL (4.7-6.1)
[2021-07-09] MEDS: FERROUS SULFATE 325 MG TAB PO SCH ×2 (09:10→15:57)
[2021-07-09] MEDS: FOLIC ACID 1 MG TAB PO SCH (09:10)
[2021-07-09] MEDS: rOPINIRole HCL 1 MG TABLET PO SCH ×2 (09:10→21:01)
[2021-07-09] MEDS: SENNA 8.6 MG TAB PO SCH (09:10)
[2021-07-09] MEDS: DIGOXIN 0.25 MG TAB PO SCH (09:11)
[2021-07-09] MEDS: METOPROLOL SUCC 50MG EXT REL TAB PO SCH (09:11)
[2021-07-09] MEDS: THIAMINE HCL 100 MG TAB PO SCH (09:11)
[2021-07-09] MEDS: APIXABAN 5 MG TABLET PO SCH ×2 (09:11→21:00)
[2021-07-09] MEDS: TERAZOSIN HCL 1 MG CAP PO SCH ×2 (09:12→21:02)
[2021-07-09] MEDS: POTASSIUM CHLORIDE CRTAB 20 MEQ TABCR PO SCH (09:20)
[2021-07-09] MEDS: traMADol HCL 50 MG TABLET PO PRN ×2 (09:20→21:00)
[2021-07-09 09:34] LABS: BUN Creatinine Ratio 42.7 (10-20); Calcium 7.8 mg/dl (8.5-10.1); Creatinine Clr Calc Pharmacy 187.6 ml/min; Est GFR (African American) 143.5 ml/min; Est GFR (Non-African American) 123.8 ml/min; Potassium 4.4 mmol/L (3.5-5.1)
--- NOTE | 2021-07-09 12:48 | XRay Report ---
XR chest 1V portable CLINICAL HISTORY: hypoxia COMPARISON STUDY: July 05, 2021 FINDINGS: No pneumothorax. Interval worsening/redistribution of bilateral pleural effusion, now appear moderate on the right and small on the left. Interval increase in density of the left retrocardiac opacity which could represent atelectasis/infil trate and pleural effusion. Cardiomediastinal silhouette remains mildly enlarged with interval silhouetting of the right heart pa rder which could be due to opacity/atelectasis of the right middle lobe. Pulmonary vascular congestion is seen.. Osseous structures: Severe degenerative changes of bilateral shoulders. Aortic calcifications are se en. Stable position of the right PICC line. IMPRESSION: 1. Interval worsening/redistribution of bilateral pleural effusion. 2. Atelectasis/infiltrate at bilateral lower lungs. 3. Interval silhouetting of the right heart border which could be due to atelectasis or infiltrate w ithin the right middle lobe. 4. Redemonstration of the large cardiac silhouette and pulmonary vascular congestion. 5. Stable position of the right PICC line. ACT 112: Negative or not required by law. The above report was generated using voice recognition software. It may contain grammatical, syntax o r spelling errors. Electronically signed by: Yessica Clemente DO 07/09/2021 12:46 PM
[2021-07-09] MEDS: DOXYCYCLINE HYCLATE 100 MG CAP PO SCH (21:01)
[2021-07-09] MEDS: CIPROFLOXACIN 500 MG TAB PO SCH (21:01)
[2021-07-09] MEDS: ATORVASTATIN 40 MG TAB PO SCH (21:01)
--- NOTE | 2021-07-09 22:56 | Hospitalist Progress Note ---
Date of Service July 09, 2021 Assessment & Plan (1) Acute on chronic combined systolic (congestive) and diastolic (congestive) heart failure: Plan: Main issue for admission Acute on chronic systolic and diastolic CHF - presented with acute pulmonary edema, pleural effusions, pericardial effusions, and acute respiratory failure with hypoxia; proBNP elevated Echo from 06/24 with EF 45-50%; L ventricular systolic function borderline reduced; akinesis of the inferior base; small pericardial effusion Restart Lasix 40mg PO starting tomorrow. CXR appears worse than prior. (2) Open wound of heel: Plan: L heel with drainage noted Pseudomonas (pansensitive) and MRSA have been cultured. Ciprofloxacin started 07/05, Vancomycin started 07/06. Switch for oral doxycycline and ciprofloxacin for total 7 day course. Blood cultures negative at 48 hours. Procalcitonin 0.16 [07/05] MRI incomplete but no definitive osteomyelitis, Split-thickness tear of the peroneus brevis tendon, Tendinopathy and paratenonitis of the Achilles tendon Waffle boot for ambulation Appreciate ortho consult (3) Acute respiratory failure with hypoxia: Plan: - initially on BiPAP and weaned on O2 (wearing for comfort); secondary to CHF - Likely has ROSALBA - CPAP as tolerated (declined by patient) CTA chest - possible small subsegmental RUL PE; no DVT on U/S. Continue Eliquis (4) Afib: Plan: As above; bradycardia resolved, dig level is normal Continue Digoxin 0.25 mg daily, repeat level in AM Increase metoprolol succinate to 100mg PO daily Continue Eliquis, monitoring on telemetry (5) Bradycardia: Plan: as above fo a. 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 Evaluated by ortho - planning on conservative measures at this time; poor surgical candidate would need completed at tertiary care; soft collar with transfers and movements (has been mostly bed bound), pt has been non compliant with collar. Repeat CT neck did not show any changes in fracture Restarted tramadol but at reduced 25mg prn dose -- reported effective Pt has lower extremity spasticity and this resulted in heel ulcer PT states is 100% functional loss. OOA called and made CM aware that he will need to come in and talk to the pt before they can submit a court order saying he is declining to go willingly to [facility] and that it is not safe for him to return home. OA supervisor knitting, Apollo, reached out to CM to let CM know that they will file the court order early next week, when they hear that the pt is medically stable for discharge. (8) Bacteremia: Plan: - Completed treatment for MSSA bacteremia x 6 weeks of Ancef - PICC line in place - no DVT found on U/S; will continue PICC now may need further treatment of the MRSA/Pseudomonas foot infection (9) Joint contracture of left lower leg: Plan: - Wheel chair bound and high fall risk - PT/OT - Multiple assist likely needed with transfers to prevent further injuries (10) Hypoalbuminemia: Plan: moderate protein malnutrition, po diet supplements (11) Restless leg syndrome: Plan: Continue ropinirole 2 PO BID (12) Anemia: Plan: - Hemoglobin stable, anemia of chronic disease and RYAN; folate deficiency - Completed Venofer treatment while inpatient, however MCV again <80 Iron remains low -- to be on BID (13) Rheumatoid arthritis: Plan: RESUMED etanercept 07/02; call to [facility] to be made by CM to see if they are able to have this brought for patient, as likely contributing to his weakness as well (14) DVT prophylaxis: Plan: Continue Eliquis Admission and Anticipated Discharge Date Admission Date: June 20, 2021 Subjective No change in shortness of breath. HR remains 90-100s after switching to metoprolol yesterday. No fevers or chills. Review of Systems Review of Systems: All systems reviewed & are unremarkable except as noted in HPI & below Physical Exam Constitutional: + ill appearing (chronically ill appearing); no acute distress Eyes: + anicteric sclerae; normal pupil size ENMT: external ear and nose normal, oropharynx normal Respiratory: normal respiratory effort, lungs clear to auscultation Cardiovascular: Rate/Rhythm: + tachycardic and + irregularly irregular Heart Sounds: no murmur Gastrointestinal (Abdomen): Inspection/Auscultation: abdomen normal to inspection; abdomen not distended Percussion/Palpation: abdomen soft; abdomen nontender Skin: + lesion (Left heel 2 cm superficial open wound, no erythema or drainage) Neurologic: moves all extremities and awake Psychiatric: Orientation: alert, oriented to person, oriented to place and cooperative Results & Data Results & Data ([facility]) Vital Signs (Past 12 Hours) Vital Signs Temp Pulse Pulse Resp BP Pulse Ox 07/09/21 22:18 36.7 C 99 H 18 145/77 H 95 07/09/21 19:52 36.7 C 100 H 18 142/73 H 99 07/09/21 16:00 100 H 07/09/21 15:00 36.8 C 101 H 22 123/81 97 07/09/21 11:00 37.0 C 88 20 127/68 98 PG Care Time/CCT Total # of Minutes Spent Total Time Spent with Patient: Total time spent is greater than 50% in coordination of care (as documented) at patient's floor/unit and/or counseling patient: Coding Level of Care Code 33738 Subseq Hosp Care Lvl 2 Diagnoses Acute on chronic combined systolic (congestive) and diastolic (congestive) heart failure I50.43 Open wound of heel S91.309A Acute respiratory failure with hypoxia J96.01 Afib I48.91 Bradycardia R00.1 Pleural effusion J90 Cervical spine fracture S12.9XXA Bacteremia R78.81 Joint contracture of left lower leg M24.562 Hypoalbuminemia E88.09 Restless leg syndrome G25.81 Anemia D64.9 Rheumatoid arthritis M06.9 Rheumatoid arthritis location: unspecified site Rheumatoid factor presence: unspecified presence DVT prophylaxis Z29.9 (1) Rheumatoid arthritis Rheumatoid arthritis location: unspecified site Rheumatoid factor presence: u nspecified presence Qualified Code(s): M06.9 - Rheumatoid arthritis, unspecified
[2021-07-10 06:49] LABS: BUN Creatinine Ratio 41.6 (10-20); Calcium 7.9 mg/dl (8.5-10.1); Creatinine Clr Calc Pharmacy 197.9 ml/min; Est GFR (Non-African American) 122.5 ml/min; Potassium 4.3 mmol/L (3.5-5.1)
[2021-07-10] MEDS ORDERED: METOPROLOL SUCC 50MG EXT REL TAB PO SCH (09:00)
[2021-07-10] MEDS: METOPROLOL SUCC 50MG EXT REL TAB PO SCH (09:18)
[2021-07-10] MEDS: FERROUS SULFATE 325 MG TAB PO SCH ×2 (09:19→17:04)
[2021-07-10] MEDS: rOPINIRole HCL 1 MG TABLET PO SCH ×2 (09:19→21:13)
[2021-07-10] MEDS: CIPROFLOXACIN 500 MG TAB PO SCH ×2 (09:19→21:14)
[2021-07-10] MEDS: DOXYCYCLINE HYCLATE 100 MG CAP PO SCH ×2 (09:19→21:14)
[2021-07-10] MEDS: TERAZOSIN HCL 1 MG CAP PO SCH ×2 (09:19→21:15)
[2021-07-10] MEDS: APIXABAN 5 MG TABLET PO SCH ×2 (09:19→21:13)
[2021-07-10] MEDS: THIAMINE HCL 100 MG TAB PO SCH (09:20)
[2021-07-10] MEDS: FOLIC ACID 1 MG TAB PO SCH (09:20)
[2021-07-10] MEDS: FUROSEMIDE 40 MG TAB PO SCH ×2 (09:20→17:04)
[2021-07-10] MEDS: SENNA 8.6 MG TAB PO SCH (09:20)
[2021-07-10] MEDS: DIGOXIN 0.25 MG TAB PO SCH (09:20)
[2021-07-10] MEDS: POTASSIUM CHLORIDE CRTAB 20 MEQ TABCR PO SCH (09:22)
[2021-07-10] MEDS: traMADol HCL 50 MG TABLET PO PRN (10:48)
--- NOTE | 2021-07-10 12:13 | Hospitalist Progress Note ---
Date of Service July 10, 2021 Assessment & Plan (1) Acute on chronic combined systolic (congestive) and diastolic (congestive) heart failure: Plan: Main issue for initial admission and ongoing inpatient care. Worse over the last few days as his furosemide was held due to hypotension on 07/06. Will restart furosemide 40mg PO BID. Acute on chronic systolic and diastolic CHF - presented with acute pulmonary edema, pleural effusions, pericardial effusions, and acute respiratory failure with hypoxia; proBNP elevated Echo from 06/24 with EF 45-50%; L ventricular systolic function borderline reduced; akinesis of the inferior base; small pericardial effusion CXR yesterday appears worse than prior after furosemide held. (2) Open wound of heel: Plan: L heel with drainage noted Pseudomonas (pansensitive) and MRSA have been cultured. Ciprofloxacin started 07/05, Vancomycin started 07/06. Switched to oral doxycycline and ciprofloxacin for total 7 day course. PICC line can be removed to help RUE swelling. Blood cultures negative at 48 hours. Procalcitonin 0.16 [07/05] MRI incomplete but no definitive osteomyelitis, Split-thickness tear of the peroneus brevis tendon, Tendinopathy and paratenonitis of the Achilles tendon Waffle boot for ambulation Appreciate ortho consult - no surgical intervention planned. (3) Acute respiratory failure with hypoxia: Plan: - initially on BiPAP and weaned on O2 (wearing for comfort); secondary to CHF - Likely has ROSALBA - CPAP as tolerated (declined by patient) CTA chest - possible small subsegmental RUL PE; no DVT on U/S. Continue Eliquis (4) Afib: Plan: As above; bradycardia resolved, dig level is normal Continue Digoxin 0.25 mg daily Increase metoprolol succinate to 200mg PO daily Continue Eliquis, monitoring on telemetry (5) Bradycardia: Plan: Occurred overnight on 07/06 with associated hypotension. Secondary to carvedilol, digoxin and terazosin use. HR now appears to be stable with reintroduction of digoxin and switching to metoprolol succinate. 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 Evaluated by ortho - planning on conservative measures at this time; poor surgical candidate would need completed at tertiary care; soft collar with transfers and movements (has been mostly bed bound), pt has been non compliant with collar. Repeat CT neck did not show any changes in fracture Restarted tramadol but at reduced 25mg prn dose - reported effective Pt has lower extremity spasticity and this resulted in heel ulcer PT states is 100% functional loss. OOA called and made CM aware that he will need to come in and talk to the pt before they can submit a court order saying he is declining to go willingly to [facility] and that it is not safe for him to return home. OA supervisor fabrication and assembly, Apollo, reached out to CM to let CM know that they will file the court order early next week, when they hear that the pt is medically stable for discharge. (8) Bacteremia: Plan: - Completed treatment for MSSA bacteremia x 6 weeks of Ancef - PICC line can now be removed (9) Joint contracture of left lower leg: Plan: - Wheel chair bound and high fall risk - PT/OT - Multiple assist likely needed with transfers to prevent further injuries (10) Hypoalbuminemia: Plan: moderate protein malnutrition, po diet supplements (11) Restless leg syndrome: Plan: Continue ropinirole 2 PO BID (12) Anemia: Plan: - Hemoglobin stable, anemia of chronic disease and RYAN; folate deficiency - Completed Venofer treatment while inpatient, however MCV again <80 Iron remains low -- to be on BID (13) Rheumatoid arthritis: Plan: RESUMED etanercept 07/02; call to [facility] to be made by CM to see if they are able to have this brought for patient, as likely contributing to his weakness as well (14) DVT prophylaxis: Plan: Continue Eliquis Admission and Anticipated Discharge Date Admission Date: June 20, 2021 Subjective Increased swelling and shortness of breath today. No chest pain. Reports pain in his back muscles while trying to raise his RUE, relates this to his swelling. Telemetry: unchanged rate despite metoprolol use Review of Systems Review of Systems: All systems reviewed & are unremarkable except as noted in HPI & below Physical Exam Constitutional: WD/WN, vitals as above + ill appearing (chronically ill appearing); no acute distress Eyes: + anicteric sclerae; normal pupil size ENMT: external ear and nose normal, oropharynx normal Neck: normal visual inspection and trachea midline Respiratory: normal respiratory effort; no respiratory distress and no cough Auscultation: + diminished lung sounds (bases b/l) and + crackles (Bibasilar); no wheezes Cardiovascular: Rate/Rhythm: + tachycardic and + irregularly irregular Heart Sounds: no murmur Extremities: + edema (edema of upper extremities R > L; no pitting edema of b/l lower extremities) and + vascular access device (PICC line in RUE intact without erythema or drainage; no tenderness to palp) Gastrointestinal (Abdomen): Inspection/Auscultation: abdomen normal to inspection; abdomen not distended Percussion/Palpation: abdomen soft; abdomen nontender Skin: no rashes, warm and dry + lesion (Left heel 2 cm superficial open wound, no erythema or drainage) Neurologic: moves all extremities and awake Psychiatric: A+Ox3, euthymic affect Results & Data Results & [facility] ([facility]) Vital Signs (Past 12 Hours) Vital Signs Temp Pulse Pulse Resp BP Pulse Ox 07/10/21 11:31 37.1 C 107 H 16 139/67 96 07/10/21 09:20 107 H 07/10/21 07:42 109 H 07/10/21 07:06 36.8 C 110 H 18 150/80 H 97 07/10/21 00:55 98 H PG Care Time/CCT Total # of Minutes Spent Total Time Spent with Patient: Total time spent is greater than 50% in coordination of care (as documented) at patient's floor/unit and/or counseling patient: Coding Level of Care Code 55690 Subseq Hosp Care Lvl 2 Diagnoses Acute on chronic combined systolic (congestive) and diastolic (congestive) heart failure I50.43 Open wound of heel S91.309A Acute respiratory failure with hypoxia J96.01 Afib I48.91 Bradycardia R00.1 Pleural effusion J90 Cervical spine fracture S12.9XXA Bacteremia R78.81 Joint contracture of left lower leg M24.562 Hypoalbuminemia E88.09 Restless leg syndrome G25.81 Anemia D64.9 Rheumatoid arthritis M06.9 Rheumatoid arthritis location: unspecified site Rheumatoid factor presence: unspecified presence DVT prophylaxis Z29.9 (1) Rheumatoid arthritis Rheumatoid arthritis location: unspecified site Rheumatoid factor presence: unspecified presence Qualified Code(s): M06.9 - Rheumatoid arthritis, unspecified
[2021-07-10] MEDS: ACETAMINOPHEN 325 MG TAB PO PRN (21:11)
[2021-07-10] MEDS: ATORVASTATIN 40 MG TAB PO SCH (21:14)
[2021-07-11 07:20] LABS: Hematocrit (blood only) 26.3 % (42-52); Hemoglobin 8.2 g/dL (14.0-18.0); Mean Corpuscular Hemoglobin 25.2 pg (25-34); Mean Corpuscular Hgb Conc 31.2 g/dL (32-36); Mean Corpuscular Volume 80.9 fL (80-100); Mean Platelet Volume 8.4 fL (7.4-10.4); Platelet Count 410 K/uL (130-400); RDW Coefficient of Variation 18.8 % (11.5-14.5); RDW Standard Deviation 55.6 fL (36.4-46.3); Red Blood Count 3.25 M/uL (4.7-6.1); White Blood Count 5.39 K/uL (4.8-10.8)
[2021-07-11 07:48] LABS: BUN Creatinine Ratio 36.6 (10-20); Calcium 8.2 mg/dl (8.5-10.1); Creatinine Clr Calc Pharmacy 156.3 ml/min; Est GFR (African American) 133.1 ml/min; Est GFR (Non-African American) 114.8 ml/min; Magnesium 1.4 mg/dl (1.8-2.4); Potassium 3.7 mmol/L (3.5-5.1)
[2021-07-11] MEDS: FUROSEMIDE 40 MG TAB PO SCH (09:28)
[2021-07-11] MEDS: FERROUS SULFATE 325 MG TAB PO SCH ×2 (09:29→15:51)
[2021-07-11] MEDS: SENNA 8.6 MG TAB PO SCH (09:29)
[2021-07-11] MEDS: THIAMINE HCL 100 MG TAB PO SCH (09:29)
[2021-07-11] MEDS: DOXYCYCLINE HYCLATE 100 MG CAP PO SCH ×2 (09:29→21:27)
[2021-07-11] MEDS: TERAZOSIN HCL 1 MG CAP PO SCH (09:30)
[2021-07-11] MEDS: DIGOXIN 0.25 MG TAB PO SCH (09:30)
[2021-07-11] MEDS: rOPINIRole HCL 1 MG TABLET PO SCH ×2 (09:31→21:24)
[2021-07-11] MEDS: APIXABAN 5 MG TABLET PO SCH ×2 (09:31→21:24)
[2021-07-11] MEDS: CIPROFLOXACIN 500 MG TAB PO SCH ×2 (09:31→21:27)
[2021-07-11] MEDS: METOPROLOL SUCC 50MG EXT REL TAB PO SCH (09:32)
[2021-07-11] MEDS: FOLIC ACID 1 MG TAB PO SCH (09:32)
[2021-07-11] MEDS: POTASSIUM CHLORIDE CRTAB 20 MEQ TABCR PO SCH (09:33)
[2021-07-11] MEDS: POLYETHYLENE (MIRALAX) 17 GM PACK PO SCH (09:41)
[2021-07-11] MEDS: MAGNESIUM SULFATE / D5W 1 GM/100 ML BAG IV SCH ×3 (12:33→15:50)
--- NOTE | 2021-07-11 13:54 | Hospitalist Progress Note ---
Date of Service July 11, 2021 Assessment & Plan (1) Acute on chronic combined systolic (congestive) and diastolic (congestive) heart failure: Plan: Main issue for initial admission and ongoing inpatient care. Worse over the last few days as his furosemide was held due to hypotension on 07/06. Will restart furosemide 40mg PO BID. Acute on chronic systolic and diastolic CHF - presented with acute pulmonary edema, pleural effusions, pericardial effusions, and acute respiratory failure with hypoxia; proBNP elevated Echo from 06/24 with EF 45-50%; L ventricular systolic function borderline reduced; akinesis of the inferior base; small pericardial effusion CXR yesterday appears worse than prior after furosemide held. 07-11: Still appears fluid overloadedswitch Lasix to IV (2) Open wound of heel: Plan: L heel with drainage noted Pseudomonas (pansensitive) and MRSA have been cultured. Ciprofloxacin started 07/05, Vancomycin started 07/06. Switched to oral doxycycline and ciprofloxacin for total 7 day course. PICC line can be removed to help RUE swelling. Blood cultures negative at 48 hours. Procalcitonin 0.16 [07/05] MRI incomplete but no definitive osteomyelitis, Split-thickness tear of the peroneus brevis tendon, Tendinopathy and paratenonitis of the Achilles tendon Waffle boot for ambulation Appreciate ortho consult - no surgical intervention planned. 2: At present wounds do not look bad (3) Acute respiratory failure with hypoxia: Plan: - initially on BiPAP and weaned on O2 (wearing for comfort); secondary to CHF - Likely has ROSALBA - CPAP as tolerated (declined by patient) CTA chest - possible small subsegmental RUL PE; no DVT on U/S. 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 Evaluated by ortho - planning on conservative measures at this time; poor surgic al candidate would need completed at tertiary care; soft collar with transfers and movements (has been mostly bed bound), pt has been non compliant with collar. Repeat CT neck did not show any changes in fracture Restarted tramadol but at reduced 25mg prn dose - reported effective Pt has lower extremity spasticity and this resulted in heel ulcer PT states is 100% functional loss. OOA called and made CM aware that he will need to come in and talk to the pt before they can submit a court order saying he is declining to go willingly to [facility] and that it is not safe for him to return home. OA prepress supervisor, Apollo, reached out to CM to let CM know that they will file the court order early next week, when they hear that the pt is medically stable for discharge. 9-2: In any case [facility] bed hold and they do not have any beds; will need SNFother process of court orders remains to be put in place (7) Bacteremia: Plan: - Completed treatment for MSSA bacteremia x 6 weeks of Ancef - PICC removed (8) Joint contracture of left lower leg: Plan: - Wheel chair bound and high fall risk - PT/OT - Multiple assist likely needed with transfers to prevent further injuries (9) Hypoalbuminemia: Plan: moderate protein malnutrition, po diet supplements (10) Restless leg syndrome: Plan: Continue ropinirole 2 PO BID (11) Anemia: Plan: - Hemoglobin stable, anemia of chronic disease and RYAN; folate deficiency - Completed Venofer treatment while inpatient, however MCV again <80 Iron remains low -- to be on BID 9-2: Repeat iron studies (12) Rheumatoid arthritis: Plan: RESUMED etanercept 07/02; call to [facility] to be made by CM to see if they are able to have this brought for patient, as likely contributing to his weakness as well 9-2: At present I do not see this being an acute issue; will reassess (13) DVT prophylaxis: Plan: Continue Eliquis (14) Hypomagnesemia: Plan: Replace Plan: High complexity, high complexity medical decision making Admission and Anticipated Discharge Date Admission Date: June 20, 2021 Subjective First time meeting patient; follow-up of complex caseoriginal presentation with shortness of breath; at present denied any complaint; telemetry showing broad QRS runs Physical Exam Physical Exam: Constitutional and general: No acute distress but generally looks unwell, looks biologic age Head and face: puffiness +, atraumatic Eyes: No scleral icterus, extraocular movements normal Neck: Supple, JVD + Skin/dermatologic/integument: No rash, no purpura Hematologic and lymphatic: pallor ++, no petechia Gastrointestinal/abdomen: distended, soft, nonacute Neurologic: quadriparetic Psychiatry: Awake, alert, communicative but unable to provide meaningful information Cardiovascular: Heart rhythm regular, no rub, systolic murmur 1 x 6; soft S3 gallop Respiratory: Chest movements equal, no use of accessory muscles, no adventitious sounds Extremities: edema +, no cyanosis Results & Data Results & Data ([facility]) Vital Signs (Past 12 Hours) Vital Signs Temp Pulse Pulse Resp BP Pulse Ox 07/11/21 11:42 37.0 C 110 H 20 111/77 94 07/11/21 09:30 108 H 07/11/21 07:42 105 H 07/11/21 07:00 36.6 C 114 H 18 133/90 99 07/11/21 03:00 36.3 C L 97 H 20 127/83 98 Laboratory Results Laboratory Results - last 24 hr 07/11/21 07/11/21 06:25 06:25 WBC 5.39 RBC 3.25 L Hgb 8.2 L Hct 26.3 L MCV 80.9 MCH 25.2 MCHC 31.2 L RDW Std Deviation 55.6 H RDW Coeff of Jayjay 18.8 H Plt Count 410 H MPV 8.4 Sodium 131 L Potassium 3.7 Chloride 100 Carbon Dioxide 25 Anion Gap 6.0 BUN 18 Creatinine 0.48 L Est Cr Clr Drug Dosing 156.3 Est GFR ( Amer) 133.1 Est GFR (Non-Af Amer) 114.8 BUN/Creatinine Ratio 36.6 H Glucose 101 H Calcium 8.2 L Magnesium 1.4 L NT-Pro-B Natriuret Pep 98558 H PG Care Time/CCT Total # of Minutes Spent Total Time Spent with Patient: Total time spent is greater than 50% in coordination of care (as documented) at patient's floor/unit and/or counseling patient: Coding Level of Care Code 29160 Subseq Hosp Care Lvl 3 Diagnoses Acute on chronic combined systolic (congestive) and diastolic (congestive) heart failure I50.43 Open wound of heel S91.309A Acute respiratory failure with hypoxia J96.01 Afib I48.91 Pleural effusion J90 Cervical spine fracture S12.9XXA Bacteremia R78.81 Joint contracture of left lower leg M24.562 Hypoalbuminemia E88.09 Restless leg syndrome G25.81 Anemia D64.9 Rheumatoid arthritis M06.9 Rheumatoid arthritis location: unspecified site Rheumatoid factor presence: unspecified presence DVT prophylaxis Z29.9 Hypomagnesemia E83.42 (1) Rheumatoid arthritis Rheumatoid arthritis location: unspecified site Rheumatoid factor presence: unspecified presence Qualified Code(s): M06.9 - Rheumatoid arthritis, unspecified
[2021-07-11] MEDS: traMADol HCL 50 MG TABLET PO PRN ×2 (14:33→21:24)
[2021-07-11] MEDS: FUROSEMIDE 40 MG in SYRINGE 0 ML IV SCH (15:54)
[2021-07-11] MEDS: ATORVASTATIN 40 MG TAB PO SCH (21:24)
[2021-07-12] MEDS: traMADol HCL 50 MG TABLET PO PRN ×3 (05:02→17:19)
[2021-07-12 06:34] LABS: Basophils # (auto) 0.01 K/uL (0-0.2); Basophils % (auto) 0.2 %; Eosinophils # (auto) 0.26 K/uL (0-0.5); Eosinophils % (auto) 4.8 %; Hematocrit (blood only) 26.8 % (42-52); Hemoglobin 8.3 g/dL (14.0-18.0); Immature Granulocytes # (auto) 0.02 K/uL (0.00-0.02); Immature Granulocytes % (auto) 0.4 %; Lymphocytes # (auto) 0.56 K/uL (1.2-3.4); Lymphocytes % (auto) 10.4 %; Mean Corpuscular Hemoglobin 24.6 pg (25-34); Mean Corpuscular Volume 79.5 fL (80-100); Mean Platelet Volume 8.5 fL (7.4-10.4); Monocytes % (auto) 3.7 %; Neutrophils # (auto) 4.36 K/uL (1.4-6.5); Neutrophils % (auto) 80.5 %; Platelet Count 403 K/uL (130-400); RDW Coefficient of Variation 18.8 % (11.5-14.5); RDW Standard Deviation 54.8 fL (36.4-46.3); Red Blood Count 3.37 M/uL (4.7-6.1); White Blood Count 5.41 K/uL (4.8-10.8)
[2021-07-12 07:08] LABS: Albumin Level 1.5 gm/dl (3.4-5.0); BUN Creatinine Ratio 28.6 (10-20); Calcium 8.1 mg/dl (8.5-10.1); Creatinine Clr Calc Pharmacy 115.4 ml/min; Est GFR (African American) 117.5 ml/min; Est GFR (Non-African American) 101.4 ml/min; Magnesium 1.6 mg/dl (1.8-2.4); Potassium 3.9 mmol/L (3.5-5.1)
[2021-07-12 07:11] LABS: Albumin Globulin Ratio 0.4 (0.9-2); Bilirubin,Total 0.4 mg/dl (0.2-1); Ferritin 959.7 ng/ml (8-388); Globulin 3.9 gm/dl (2.5-4.0); Total Protein 5.4 gm/dl (6.4-8.2)
[2021-07-12] MEDS: rOPINIRole HCL 1 MG TABLET PO SCH ×2 (09:07→22:09)
[2021-07-12] MEDS: FERROUS SULFATE 325 MG TAB PO SCH ×2 (09:11→17:20)
[2021-07-12] MEDS: APIXABAN 5 MG TABLET PO SCH ×2 (09:12→22:09)
[2021-07-12] MEDS: CIPROFLOXACIN 500 MG TAB PO SCH (09:13)
[2021-07-12] MEDS: DIGOXIN 0.25 MG TAB PO SCH (09:13)
[2021-07-12] MEDS: FOLIC ACID 1 MG TAB PO SCH (09:14)
[2021-07-12] MEDS: DOXYCYCLINE HYCLATE 100 MG CAP PO SCH (09:14)
[2021-07-12] MEDS: METOPROLOL SUCC 50MG EXT REL TAB PO SCH (09:14)
[2021-07-12] MEDS: SENNA 8.6 MG TAB PO SCH (09:18)
[2021-07-12] MEDS: THIAMINE HCL 100 MG TAB PO SCH (09:19)
[2021-07-12] MEDS: POTASSIUM CHLORIDE CRTAB 20 MEQ TABCR PO SCH (09:56)
[2021-07-12] MEDS: POLYETHYLENE (MIRALAX) 17 GM PACK PO SCH (09:56)
[2021-07-12] MEDS: FUROSEMIDE 40 MG in SYRINGE 0 ML IV SCH ×2 (09:56→17:20)
--- NOTE | 2021-07-12 11:02 | Hospitalist Progress Note ---
Date of Service July 12, 2021 Assessment & Plan (1) Acute on chronic combined systolic (congestive) and diastolic (congestive) heart failure: Plan: Main issue for initial admission and ongoing inpatient care. Worse over the last few days as his furosemide was held due to hypotension on 07/06. Will restart furosemide 40mg PO BID. Acute on chronic systolic and diastolic CHF - presented with acute pulmonary edema, pleural effusions, pericardial effusions, and acute respiratory failure with hypoxia; proBNP elevated Echo from 06/24 with EF 45-50%; L ventricular systolic function borderline reduced; akinesis of the inferior base; small pericardial effusion CXR yesterday appears worse than prior after furosemide held. 07-11: Still appears fluid overloadedswitch Lasix to IV 93: Better; no change; cardiology will reassess (2) Open wound of heel: Plan: L heel with drainage noted Pseudomonas (pansensitive) and MRSA have been cultured. Ciprofloxacin started 07/05, Vancomycin started 07/06. Switched to oral doxycycline and ciprofloxacin for total 7 day course. PICC line can be removed to help RUE swelling. Blood cultures negative at 48 hours. Procalcitonin 0.16 [07/05] MRI incomplete but no definitive osteomyelitis, Split-thickness tear of the peroneus brevis tendon, Tendinopathy and paratenonitis of the Achilles tendon Waffle boot for ambulation Appreciate ortho consult - no surgical intervention planned. 92: At present wounds do not look bad 93: No change (3) Acute respiratory failure with hypoxia: Plan: - initially on BiPAP and weaned on O2 (wearing for comfort); secondary to CHF - Likely has ROSALBA - CPAP as tolerated (declined by patient) CTA chest - possible small subsegmental RUL PE; no DVT on U/S. Continue Eliquis -2: Supportive oxygen; incentive spirometry added 93: No change (4) Afib: Plan: As above; bradycardia resolved, dig level is normal Continue Digoxin 0.25 mg daily Increase metoprolol succinate to 200mg PO daily Continue Eliquis, monitoring on telemetry 07-11: Rate control acceptable; broad QRS rhythm-might be aberrant conduction; cardiology input sought-for this issue and revisiting overall cardiac status 93: Fluctuating heart rate; at present no major changes since cardiology will weigh inavoid multiplicity (5) Pleural effusion: Plan: Secondary to heart failurerepeat x-ray chest at some point (6) Cervical spine fracture: Plan: 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 Evaluated by ortho - planning on conservative measures at this time; poor surgical candidate would need completed at tertiary care; soft collar with transfers and movements (has been mostly bed bound), pt has been non compliant with collar. Repeat CT neck did not show any changes in fracture Restarted tramadol but at reduced 25mg prn dose - reported effective Pt has lower extremity spasticity and this resulted in heel ulcer PT states is 100% functional loss. OOA called and made CM aware that he will need to come in and talk to the pt before they can submit a court order saying he is declining to go willingly to [facility] and that it is not safe for him to return home. OA relay shop supervisor, Apollo, reached out to CM to let CM know that they will file the court order early next week, when they hear that the pt is medically stable for discharge. 9-2: In any case [facility] bed hold and they do not have any beds; will need SNFother process of court orders remains to be put in place 9-3: Does not appear surgical candidate at presentlimited options (7) Bacteremia: Plan: - Completed treatment for MSSA bacteremia x 6 weeks of Ancef - PICC removed 93: would obtain surveillance cultures in 48 hours (8) Joint contracture of left lower leg: Plan: - Wheel chair bound and high fall risk - PT/OT - Multiple assist likely needed with transfers to prevent further injuries (9) Hypoalbuminemia: Plan: moderate protein malnutrition, po diet supplements (10) Restless leg syndrome: Plan: Continue ropinirole 2 PO BID (11) Anemia: Plan: - Hemoglobin stable, anemia of chronic disease and RYAN; folate deficiency - Completed Venofer treatment while inpatient, however MCV again <80 Iron remains low -- to be on BID 9-2: Repeat iron studies 93: Suggest chronic anemia of chronic disease and not iron deficiency (12) Rheumatoid arthritis: Plan: RESUMED etanercept 07/02; call to [facility] to be made by CM to see if they are able to have this brought for patient, as likely contributing to his weakness as well 9-2: At present I do not see this being an acute issue; will reassess 93;:with ongoing active issues and I do not think currently advisablereassess (13) DVT prophylaxis: Plan: Continue Eliquis (14) Hypomagnesemia: Plan: Replace Plan: High complexity, high complexity medical decision making; will consider voiding trial at some point Admission and Anticipated Discharge Date Admission Date: June 20, 2021 Subjective Long complex course: Original presentation: "66 YOM with past medical history of- odontoid cervical fracture, atrial flutter, HTN, wheel chair bound, cardiomyopathy, contractures of lower legs, respiratory failure requiring intubation in January 26. Patient comes to the emergency room today for complains of shortness of breath that occurred while he was assisting his caregiver this morning while rolling on his left side. He said this caused him to pass out for a few seconds. He denies fevers or chills and denies any productive cough. The patient was placed on BiPAP when he arrived to the EMD although has not been hypoxic since arrival. He does exhibit expiratory wheezes bilaterally and crackles throughout. He is in afib with HR in the 120s and states he has missed several doses of Eliquis. In the EMD the patient received 1 hour nebulizer while on BiPAP /, hot hypercarbic on VBG and SPO2 on monitor 96-100%, he had routine labs drawn that reveal elevated BNP [id number] and was administered 40 mg IV Lasix. Patient will be admitted to [facility] and evaluate pulmonary status. Will obtain CTA of the chest secondary to acute development of dyspnea and missing doses of Eliquis. The patient has a PICC line for completing 6 weeks of ANCEF as on his last admission had persistent blood cultures positive for MSSA and inability to effectively rule out IE with his cervical fracture as above. Patient was being followed by ID, continue for now. Patient has repeat blood cultures at this time. No fevers endorsed and does not appear septic. PICC line is clean and left lower foot wound covered with Keflex, without sign of infection. " 93: No complaints voiced; hard to assess Physical Exam Physical Exam: Constitutional and general: No acute distress but generally looks unwell, looks biologic age Head and face: puffiness +, atraumatic Eyes: No scleral icterus, extraocular movements normal Neck: Supple, JVD less Skin/dermatologic/integument: No rash, no purpura Hematologic and lymphatic: pallor ++, no petechia Gastrointestinal/abdomen: distended, soft, nonacute Neurologic: Appears quadriparetic Musculoskeletal changes of RA Psychiatry: Awake, alert, communicative but unable to provide meaningful information Cardiovascular: Heart rhythm regular, no rub, systolic murmur 1 x 6; soft S3 gallop Respiratory: Chest movements equal, no use of accessory muscles, no adventitious sounds Extremities: edema +, no cyanosis Results & Data Results & Data ([facility]) Vital Signs (Past 12 Hours) Vital Signs Temp Pulse Pulse Resp BP Pulse Ox 07/12/21 09:13 98 H 07/12/21 08:08 37.0 C 51 L 20 100/68 98 07/12/21 02:52 36.7 C 53 L 18 117/75 98 Laboratory Results Laboratory Results - last 24 hr 07/12/21 07/12/21 06:08 06:08 WBC 5.41 RBC 3.37 L Hgb 8.3 L Hct 26.8 L MCV 79.5 L MCH 24.6 L MCHC 31.0 L RDW Std Deviation 54.8 H RDW Coeff of Jayjay 18.8 H Plt Count 403 H MPV 8.5 Immature Gran % (Auto) 0.4 Neut % (Auto) 80.5 Lymph % (Auto) 10.4 [place] % (Auto) 3.7 Eos % (Auto) 4.8 Baso % (Auto) 0.2 Neut # (Auto) 4.36 Lymph # (Auto) 0.56 L [place] # (Auto) 0.20 Eos # (Auto) 0.26 Baso # (Auto) 0.01 Immature Gran # (Auto) 0.02 Sodium 130 L Potassium 3.9 Chloride 98 Carbon Dioxide 27 Anion Gap 6.0 BUN 19 H Creatinine 0.65 Est Cr Clr Drug Dosing 115.4 Est GFR ( Amer) 117.5 Est GFR (Non-Af Amer) 101.4 BUN/Creatinine Ratio 28.6 H Glucose 132 H Calcium 8.1 L Magnesium 1.6 L Iron 15 L TIBC 155 L Ferritin 959.7 H Total Bilirubin 0.4 AST 33 ALT 50 Alkaline Phosphatase 106 Total Protein 5.4 L Albumin 1.5 L Globulin 3.9 Albumin/Globulin Ratio 0.4 L PG Care Time/CCT Total # of Minutes Spent Total Time Spent with Patient: Total time spent is greater than 50% in coord ination of care (as documented) at patient's floor/unit and/or counseling patient: Coding Level of Care Code 69286 Subseq Hosp Care Lvl 3 Diagnoses Acute on chronic combined systolic (congestive) and diastolic (congestive) heart failure I50.43 Open wound of heel S91.309A Acute respiratory failure with hypoxia J96.01 Afib I48.91 Pleural effusion J90 Cervical spine fracture S12.9XXA Bacteremia R78.81 Joint contracture of left lower leg M24.562 Hypoalbuminemia E88.09 Restless leg syndrome G25.81 Anemia D64.9 Rheumatoid arthritis M06.9 Rheumatoid arthritis location: unspecified site Rheumatoid factor presence: unspecified presence DVT prophylaxis Z29.9 Hypomagnesemia E83.42 (1) Rheumatoid arthritis Rheumatoid arthritis location: unspecified site Rheumatoid factor presence: unspecified presence Qualified Code(s): M06.9 - Rheumatoid arthritis, unspecified
--- NOTE | 2021-07-12 11:59 | Cardiology Progress Note ---
Date of Service July 12, 2021 Assessment & Plan (1) Acute on chronic combined systolic (congestive) and diastolic (congestive) heart failure: Plan: -agree with Lasix 40 mg IV b.i.d.. -would continue until BUN and creatinine increase. (2) Afib: Plan: -ventricular response 80-100 bpm. -continue metoprolol succinate at 200 mg daily. -continue digoxin at 0.25 mg daily -continue Eliquis at 5 mg b.i.d.. (3) Pericardial effusion: Plan: -2nd echocardiogram notes a smaller pericardial effusion. -etiology uncertain. -recheck limited echocardiogram as an outpatient. (4) Cardiomyopathy: Plan: -borderline left ventricular ejection fraction 45-50%. -essentially unchanged from May 2021. -continue metoprolol succinate and lisinopril. Admission and Anticipated Discharge Date Admission Date: June 20, 2021 Subjective The patient is resting comfortably in bed without complaints of chest pain or dyspnea. Physical Exam Physical Exam: In general this is a well-developed well-nourished white male in no acute distress. HEENT exam is negative. Neck is supple with full carotid upstrokes. No obvious bruits. Jugular venous pressure is flat at 45. No thyromegaly. Cardiovascular exam reveals an irregular regular rhythm with distant heart sounds. No obvious murmurs. Lungs note decreased breath sounds at the bases but no rales, rhonchi or wheezes. Abdomen is soft and nontender without bruits. Extremities reveal intact radial artery pulses bilaterally. There is 1+ edema of the upper extremities. Results & Data ([facility]) Vital Signs (Past 12 Hours) Vital Signs Temp Pulse Pulse Resp BP Pulse Ox 07/12/21 11:20 96 H 07/12/21 09:13 98 H 07/12/21 08:08 37.0 C 51 L 20 100/68 98 07/12/21 02:52 36.7 C 53 L 18 117/75 98 PG Care Time/CCT Total # of Minutes Spent Total Time Spent with Patient: Total time spent is greater than 50% in coordination of care (as documented) at patient's floor/unit and/or counseling patient: Coding Level of Care Code 09611 Subseq Hosp Care Lvl 3 Diagnoses Pericardial effusion I31.3 Afib I48.91 Cardiomyopathy I42.9 Acute on chronic combined systolic (congestive) and diastolic (congestive) heart failure I50.43
[2021-07-12] MEDS: MAGNESIUM SULFATE / D5W 1 GM/100 ML BAG IV SCH ×3 (12:19→16:30)
[2021-07-12] MEDS: ATORVASTATIN 40 MG TAB PO SCH (22:09)
[2021-07-13] MEDS: traMADol HCL 50 MG TABLET PO PRN ×3 (03:07→17:02)
[2021-07-13 07:24] LABS: Basophils # (auto) 0.01 K/uL (0-0.2); Basophils % (auto) 0.2 %; Eosinophils # (auto) 0.24 K/uL (0-0.5); Eosinophils % (auto) 4.5 %; Hematocrit (blood only) 27.4 % (42-52); Hemoglobin 8.7 g/dL (14.0-18.0); Immature Granulocytes # (auto) 0.03 K/uL (0.00-0.02); Immature Granulocytes % (auto) 0.6 %; Lymphocytes # (auto) 0.64 K/uL (1.2-3.4); Mean Corpuscular Hemoglobin 25.7 pg (25-34); Mean Corpuscular Hgb Conc 31.8 g/dL (32-36); Mean Corpuscular Volume 81.1 fL (80-100); Mean Platelet Volume 8.6 fL (7.4-10.4); Monocytes # (auto) 0.17 K/uL (0.11-0.59); Monocytes % (auto) 3.2 %; Neutrophils # (auto) 4.26 K/uL (1.4-6.5); Neutrophils % (auto) 79.5 %; Platelet Count 430 K/uL (130-400); RDW Coefficient of Variation 18.8 % (11.5-14.5); RDW Standard Deviation 55.6 fL (36.4-46.3); Red Blood Count 3.38 M/uL (4.7-6.1); White Blood Count 5.35 K/uL (4.8-10.8)
[2021-07-13 07:43] LABS: Albumin Level 1.7 gm/dl (3.4-5.0); BUN Creatinine Ratio 41.1 (10-20); Calcium 8.1 mg/dl (8.5-10.1); Est GFR (African American) 124.9 ml/min; Est GFR (Non-African American) 107.8 ml/min; Magnesium 2.2 mg/dl (1.8-2.4); Potassium 4.1 mmol/L (3.5-5.1)
[2021-07-13 07:45] LABS: Albumin Globulin Ratio 0.4 (0.9-2); Bilirubin,Total 0.6 mg/dl (0.2-1); Globulin 4.1 gm/dl (2.5-4.0); Total Protein 5.8 gm/dl (6.4-8.2)
[2021-07-13] MEDS: rOPINIRole HCL 1 MG TABLET PO SCH ×2 (10:31→21:41)
[2021-07-13] MEDS: APIXABAN 5 MG TABLET PO SCH ×2 (10:32→21:40)
[2021-07-13] MEDS: FERROUS SULFATE 325 MG TAB PO SCH ×2 (10:32→16:50)
[2021-07-13] MEDS: DIGOXIN 0.25 MG TAB PO SCH (10:32)
[2021-07-13] MEDS: FOLIC ACID 1 MG TAB PO SCH (10:33)
[2021-07-13] MEDS: POLYETHYLENE (MIRALAX) 17 GM PACK PO SCH (10:35)
[2021-07-13] MEDS: METOPROLOL SUCC 50MG EXT REL TAB PO SCH (10:35)
[2021-07-13] MEDS: THIAMINE HCL 100 MG TAB PO SCH (10:36)
[2021-07-13] MEDS: SENNA 8.6 MG TAB PO SCH (10:36)
--- NOTE | 2021-07-13 10:55 | Hospitalist Progress Note ---
Date of Service July 13, 2021 Assessment & Plan (1) Acute on chronic combined systolic (congestive) and diastolic (congestive) heart failure: Plan: Main issue for initial admission and ongoing inpatient care. Worse over the last few days as his furosemide was held due to hypotension on 07/06. Will restart furosemide 40mg PO BID. Acute on chronic systolic and diastolic CHF - presented with acute pulmonary edema, pleural effusions, pericardial effusions, and acute respiratory failure with hypoxia; proBNP elevated Echo from 06/24 with EF 45-50%; L ventricular systolic function borderline reduced; akinesis of the inferior base; small pericardial effusion CXR yesterday appears worse than prior after furosemide held. 9-2: Still appears fluid overloadedswitch Lasix to IV 93: Better; no change; cardiology will reassess 94: Clinically volume status better though intake-output noted; no change; repeat x-ray chest; cardiology review noted and appreciated (2) Altered mental status: Plan: Since I have seen him he is cognitively not normal but possibly worseCT head to begin with; unlikely he will cooperate or able to go through MRI but can try; given recent MSSA bacteremia at some point occurence of ischemic infarction possibility (3) Open wound of heel: Plan: L heel with drainage noted Pseudomonas (pansensitive) and MRSA have been cultured. Ciprofloxacin started 07/05, Vancomycin started 07/06. Switched to oral doxycycline and ciprofloxacin for total 7 day course. PICC line can be removed to help RUE swelling. Blood cultures negative at 48 hours. Procalcitonin 0.16 [07/05] MRI incomplete but no definitive osteomyelitis, Split-thickness tear of the peroneus brevis tendon, Tendinopathy and paratenonitis of the Achilles tendon Waffle boot for ambulation Appreciate ortho consult - no surgical intervention planned. 9-2: At present wounds do not look bad 93: No change 9-4: No change (4) Acute respiratory failure with hypoxia: Plan: - initially on BiPAP and weaned on O2 (wearing for comfort); secondary to CHF - Likely has ROSALBA - CPAP as tolerated (declined by patient) CTA chest - possible small subsegmental RUL PE; no DVT on U/S. Continue Eliquis 9-2: Supportive oxygen; incentive spirometry added 93: No change 94: No change (5) Afib: Plan: As above; bradycardia resolved, dig level is normal Continue Digoxin 0.25 mg daily Increase metoprolol succinate to 200mg PO daily Continue Eliquis, monitoring on telemetry 9-2: Rate control acceptable; broad QRS rhythm-might be aberrant conduction; cardiology input sought-for this issue and revisiting overall cardiac status 93: Fluctuating heart rate; at present no major changes since cardiology will weigh inavoid multiplicity 9-4: Heart rate acceptable; no change (6) Pleural effusion: Plan: Secondary to heart failurerepeat x-ray chest as noted (7) Cervical spine fracture: Plan: 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 Evaluated by ortho - planning on conservative measures at this time; poor surgical candidate would need completed at tertiary care; soft collar with transfers and movements (has been mostly bed bound), pt has been non compliant with collar. Repeat CT neck did not show any changes in fracture Restarted tramadol but at reduced 25mg prn dose - reported effective Pt has lower extremity spasticity and this resulted in heel ulcer PT states is 100% functional loss. MEGHAN called and made CM aware that he will need to come in and talk to the pt before they can submit a court order saying he is declining to go willingly to [facility] and that it is not safe for him to return home. OA mechanical maintenance supervisor, Apollo, reached out to CM to let CM know that they will file the court order early next week, when they hear that the pt is medically stable for discharge. 9-2: [facility]; will need SNFother process of court orders remains to be put in place 9-3: Does not appear surgical candidate at presentlimited options 9-4: Apparently lower extremities have not been of use for a long timedetails uncertain; he states 2 years but may not be accurate but nursing clearly states long time; did use his upper extremities to eat a sandwich yesterday; At present with albumin 1.7 and overall picture not a surgical candidate by any stretch (8) Bacteremia: Plan: - Completed treatment for MSSA bacteremia x 6 weeks of Ancef - PICC removed 93: would obtain surveillance cultures in a.m. (9) Joint contracture of left lower leg: Plan: - Wheel chair bound and high fall risk - PT/OT - Multiple assist likely needed with transfers to prevent further injuries (10) Hypoalbuminemia: Plan: moderate protein malnutrition, po diet supplements (11) Restless leg syndrome: Plan: Continue ropinirole 2 PO BID (12) Anemia: Plan: - Hemoglobin stable, anemia of chronic disease and RYAN; folate deficiency - Completed Venofer treatment while inpatient, however MCV again <80 Iron remains low -- to be on BID 9-2: Repeat iron studies 93: Suggest chronic anemia of chronic disease and not iron deficiency 9-4: Hgb stable (13) Rheumatoid arthritis: Plan: RESUMED etanercept 07/02; call to [facility] to be made by CM to see if they are able to have this brought for patient, as likely contributing to his weakness as well 9-2: At present I do not see this being an acute issue; will reassess 93;:with ongoing active issues and I do not think currently advisablereassess 9-4: My view has not changed, see above; immunosuppressive risks are significant at least for now but might need to pull the trigger at some point (14) DVT prophylaxis: Plan: Continue Eliquis (15) Hypomagnesemia: Plan: Replace as needed Plan: Will try voiding trial to remove Davis and decrease nosocomial risks -was inserted in ER; high complexity, high complexity medical decision making; Admission and Anticipated Discharge Date Admission Date: June 20, 2021 Subjective Long complex course: Original presentation: "66 YOM with past medical history of- odontoid cervical fracture, atrial flutter, HTN, wheel chair bound, cardiomyopathy, contractures of lower legs, respiratory failure requiring intubation in January 26. Patient comes to the emergency room today for complains of shortness of breath that occurred while he was assisting his caregiver this morning while rolling on his left side. He said this caused him to pass out for a few seconds. He denies fevers or chills and denies any productive cough. The patient was placed on BiPAP when he arrived to the [facility] although has not been hypoxic since arrival. He does exhibit expiratory wheezes bilaterally and crackles throughout. He is in afib with HR in the 120s and states he has missed several doses of Eliquis. In the EMD the patient received 1 hour nebulizer while on BiPAP /, hot hypercarbic on VBG and SPO2 on monitor 96-100%, he had routine labs drawn that reveal elevated BNP [id number] and was administered 40 mg IV Lasix. Patient will be admitted to continue to [facility] and evaluate pulmonary status. Will obtain CTA of the chest secondary to acute development of dyspnea and missing doses of Eliquis. The patient has a PICC line for completing 6 weeks of ANCEF as on his last admission had persistent blood cultures positive for MSSA and inability to effectively rule out IE with his cervical fracture as above. Patient was being followed by ID, continue for now. Patient has repeat blood cultures at this time. No fevers endorsed and does not appear septic. PICC line is clean and left lower foot wound covered with Keflex, without sign of infection. " 93: No complaints voiced; hard to assess 9-4: Did not voice any complaints; clearly confused Physical Exam Physical Exam: Constitutional and general: No acute distress but generally looks unwell, looks biologic age Head and face: puffiness +, atraumatic Eyes: No scleral icterus, extraocular movements normal Neck: Supple, JVD less Skin/dermatologic/integument: No rash, no purpura Hematologic and lymphatic: pallor ++, no petechia Gastrointestinal/abdomen: distended, soft, nonacute Neurologic: Appears quadriparetic- does wiggle fingers and toes Musculoskeletal changes of RA Psychiatry: Awake, alert, communicative but unable to provide meaningful information Cardiovascular: Heart rhythm irregular, no rub, systolic murmur 1 x 6; soft S3 gallop Respiratory: Chest movements equal, no use of accessory muscles, no adventitious sounds Extremities: edema ++-upper extremity more, no cyanosis Results & Data Results & Data ([facility]) Vital Signs (Past 12 Hours) Vital Signs Temp Pulse Pulse Resp BP BP Pulse Ox 07/13/21 10:32 90 07/13/21 07:37 36.5 C 101 H 20 135/85 98 07/13/21 03:15 36.9 C 99 H 18 110/63 97 07/13/21 01:01 89 07/12/21 22:43 37.2 C 97 H 18 118/60 94 Laboratory Results Laboratory Results - last 24 hr 07/13/21 07/13/21 06:58 06:58 WBC 5.35 RBC 3.38 L Hgb 8.7 L Hct 27.4 L MCV 81.1 MCH 25.7 MCHC 31.8 L RDW Std Deviation 55.6 H RDW Coeff of Jayjay 18.8 H Plt Count 430 H MPV 8.6 Immature Gran % (Auto) 0.6 Neut % (Auto) 79.5 Lymph % (Auto) 12.0 [place] % (Auto) 3.2 Eos % (Auto) 4.5 Baso % (Auto) 0.2 Neut # (Auto) 4.26 Lymph # (Auto) 0.64 L [place] # (Auto) 0.17 Eos # (Auto) 0.24 Baso # (Auto) 0.01 Immature Gran # (Auto) 0.03 H Sodium 131 L Potassium 4.1 Chloride 98 Carbon Dioxide 28 Anion Gap 5.0 BUN 23 H Creatinine 0.56 L Est Cr Clr Drug Dosing 134.0 Est GFR ( Amer) 124.9 Est GFR (Non-Af Amer) 107.8 BUN/Creatinine Ratio 41.1 H Glucose 88 Calcium 8.1 L Magnesium 2.2 Total Bilirubin 0.6 AST 23 ALT 42 Alkaline Phosphatase 106 Total Protein 5.8 L Albumin 1.7 L Globulin 4.1 H Albumin/Globulin Ratio 0.4 L PG Care Time/CCT Total # of Minutes Spent Total Time Spent with Patient: Total time spent is greater than 50% in coordination of care (as documented) at patient's floor/unit and/or counseling patient: Coding Level of Care Code 54158 Subseq Hosp Care Lvl 3 Diagnoses Acute on chronic combined systolic (congestive) and diastolic (congestive) heart failure I50.43 Open wound of heel S91.309A Acute respiratory failure with hypoxia J96.01 Afib I48.91 Pleural effusion J90 Cervical spine fracture S12.9XXA Bacteremia R78.81 Joint contracture of left lower leg M24.562 Hypoalbuminemia E88.09 Restless leg syndrome G25.81 Anemia D64.9 Rheumatoid arthritis M06.9 Rheumatoid arthritis location: unspecified site Rheumatoid factor presence: unspecified presence DVT prophylaxis Z29.9 Hypomagnesemia E83.42 Altered mental status R41.82 (1) Rheumatoid arthritis Rheumatoid arthritis location: unspecified site Rheumatoid factor presence: unspecified presence Qualified Code(s): M06.9 - Rheumatoid arthritis, unspecified
--- NOTE | 2021-07-13 11:19 | XRay Report ---
XR chest 1V portable CLINICAL HISTORY: Pleural effusion COMPARISON STUDY: July 09, 2021 FINDINGS: No pneumothorax. Stable moderate pleural effusion which is extending to the right minor fissure. Stable small left ple ural effusion and dense left retrocardiac opacity with air bronchograms which could represent atelect asis or infiltrate. Atelectasis/infiltrate at the right base is again seen. Cardiomediastinal silhouette is slightly enlarged, stable since prior. Mild pulmonary vascular congestion is seen.. Osseous structures: Degenerative changes of the spine and bilateral shoulders. Interval removal of the right subclavian catheter. IMPRESSION: 1. Stable bilateral pleural effusion associated with atelectasis/infiltrates at bilateral bases. 2. Redemonstration of cardiomegaly and pulmonary vascular congestion. ACT 112: Negative or not required by law. The above report was generated using voice recognition software. It may contain grammatical, syntax o r spelling errors. Electronically signed by: Yessica Clemente DO 07/13/2021 11:17 AM
[2021-07-13] MEDS ORDERED: OPTIRAY 320 100ml IV ONE (11:20)
--- NOTE | 2021-07-13 11:25 | CT Scan Report ---
CT head/brain wo/w con CT DOSE: 1074.96 mGy.cm TECHNIQUE: Noncontrast images were obtained through the brain in the axial plane. The sequence was re peated following administration of 94 Optiray. A dose lowering technique was utilized adhering to th e principles of ALARA. HISTORY: altered mental status COMPARISON: May 11, 2021 FINDINGS: No intra or extra-axial mass lesions are visualized. There is no CT evidence of acute cortical infarc tion. There is no evidence of midline shift. There is no acute hemorrhage. No acute depressed calvar ial fractures are visualized. There are patchy white matter hypodensities likely on a small vessel basis. Mild atrophic changes of brain parenchyma. Ventricles are midline, slightly prominent likely due to e x vacuo dilatation. There is no evidence of acute sinusitis Postcontrast images reveal no pathologically enhancing masses. No areas of abnormal enhancement is seen. IMPRESSION: No acute intracranial findings ACT 112: Negative or not required by law. The above report was generated using voice recognition software. It may contain grammatical, syntax o r spelling errors. Electronically signed by: Yessica Clemente DO 07/13/2021 11:24 AM
[2021-07-13] MEDS: POTASSIUM CHLORIDE CRTAB 20 MEQ TABCR PO SCH (11:36)
[2021-07-13] MEDS: FUROSEMIDE 40 MG in SYRINGE 0 ML IV SCH ×2 (11:36→16:50)
[2021-07-13] MEDS: ATORVASTATIN 40 MG TAB PO SCH (21:40)
[2021-07-14 06:47] LABS: Basophils # (auto) 0.01 K/uL (0-0.2); Basophils % (auto) 0.2 %; Eosinophils % (auto) 3.5 %; Hematocrit (blood only) 27.5 % (42-52); Hemoglobin 8.4 g/dL (14.0-18.0); Immature Granulocytes # (auto) 0.02 K/uL (0.00-0.02); Immature Granulocytes % (auto) 0.4 %; Lymphocytes # (auto) 0.56 K/uL (1.2-3.4); Lymphocytes % (auto) 9.8 %; Mean Corpuscular Hemoglobin 24.7 pg (25-34); Mean Corpuscular Hgb Conc 30.5 g/dL (32-36); Mean Corpuscular Volume 80.9 fL (80-100); Mean Platelet Volume 8.4 fL (7.4-10.4); Monocytes # (auto) 0.19 K/uL (0.11-0.59); Monocytes % (auto) 3.3 %; Neutrophils # (auto) 4.71 K/uL (1.4-6.5); Neutrophils % (auto) 82.8 %; Platelet Count 396 K/uL (130-400); White Blood Count 5.69 K/uL (4.8-10.8)
[2021-07-14 07:05] LABS: Albumin Level 1.6 gm/dl (3.4-5.0); BUN Creatinine Ratio 51.5 (10-20); Creatinine Clr Calc Pharmacy 163.1 ml/min; Est GFR (African American) 135.4 ml/min; Est GFR (Non-African American) 116.9 ml/min; Magnesium 2.2 mg/dl (1.8-2.4); Potassium 3.8 mmol/L (3.5-5.1)
[2021-07-14 07:10] LABS: Albumin Globulin Ratio 0.4 (0.9-2); Bilirubin,Total 0.4 mg/dl (0.2-1); Phosphorus 3.9 mg/dl (2.5-4.9); Total Protein 5.6 gm/dl (6.4-8.2)
[2021-07-14] MEDS: APIXABAN 5 MG TABLET PO SCH ×2 (09:41→20:20)
[2021-07-14] MEDS: FERROUS SULFATE 325 MG TAB PO SCH ×2 (09:41→17:42)
[2021-07-14] MEDS: FUROSEMIDE 40 MG in SYRINGE 0 ML IV SCH ×2 (09:42→17:40)
[2021-07-14] MEDS: FOLIC ACID 1 MG TAB PO SCH (09:42)
[2021-07-14] MEDS: DIGOXIN 0.25 MG TAB PO SCH (09:42)
[2021-07-14] MEDS: METOPROLOL SUCC 50MG EXT REL TAB PO SCH (09:42)
[2021-07-14] MEDS: POLYETHYLENE (MIRALAX) 17 GM PACK PO SCH (09:44)
[2021-07-14] MEDS: POTASSIUM CHLORIDE CRTAB 20 MEQ TABCR PO SCH (09:44)
[2021-07-14] MEDS: rOPINIRole HCL 1 MG TABLET PO SCH ×2 (09:46→20:20)
[2021-07-14] MEDS: SENNA 8.6 MG TAB PO SCH (09:47)
[2021-07-14] MEDS: THIAMINE HCL 100 MG TAB PO SCH (09:51)
[2021-07-14] MEDS ORDERED: THIAMINE HCL 200 MG in SODIUM CHLORIDE 0.9% 50 ML IV ONE (10:00)
[2021-07-14] MEDS: ZINC SULFATE 220 MG CAPSULE PO SCH (10:06)
[2021-07-14] MEDS: ASCORBIC ACID 500 MG TAB PO SCH ×2 (10:06→20:21)
[2021-07-14] MEDS: CEROVITE ADV FORMULA TAB PO SCH (10:06)
[2021-07-14] MEDS: traMADol HCL 50 MG TABLET PO PRN ×2 (10:07→17:41)
--- NOTE | 2021-07-14 14:59 | Hospitalist Progress Note ---
Date of Service July 14, 2021 Assessment & Plan (1) Acute on chronic combined systolic (congestive) and diastolic (congestive) heart failure: Plan: Ongoing. Continues with NC O2 requirement. Severe hypoalbuminemia contributing as well. Echo from 06/24 with EF 45-50% with akinesis of the inferior wall and small pericardial effusion. Continue IV lasix twice daily. Repeat BMP am. Cont metoprolol succinate. Lisinopril on hold due to recent hypotension. if BPs remain stable overnight will resume in am. Systolic CHF is on the basis of ischemia. (2) Altered mental status: Plan: Today was my first visit with him but he was a pretty good historian and was oriented x 3. will reassess tomorrow. (3) Open wound of heel: Plan: L heel. Pressure ulcer due to severe contractures & bedbound status. Recent culture with pseudomonas (pansensitive) and MRSA. s/p 7 day course of appropriate Rx for each. Now off antibiotics. Recent MRI with no obvious osteomyelitis. Seen by Dr Saba, orthopedics - wound care advised, offloading of heels (if able to), etc. I spoke with nurse today - will attempt to offload heels with waffle boots but uncertain if we can place due to severity of contractures. Foam ones would be idea. (4) Acute respiratory failure with hypoxia: Plan: 2nd acute/chronic CHF. Possible small subsegmental RUL PE on recent CTA unlikely to be playing much of a role. Cont diuresis. (5) Afib: Plan: Tele overnight stable on metoprolol succinate 200mg PO daily and digoxin 0.25mg daily. Recent dig level acceptable. Continue Eliquis and telemetry. (6) Pleural effusion: Plan: Secondary to CHF, severe hypoalbuminemia, etc. Cont to diurese. 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 Dr Hassan saw earlier in June -- poor surgical candidate. Would need surgical repair at tertiary care care. Cont soft collar with transfers and movements. By report has been non-compliant with collar. 07/[address] unchanged from prior imaging. Is the c-spine fracture with canal compromise the cause of his chronic contractures and acquired paraplegia?? (8) Bacteremia: Plan: MSSA bacteremia - s/p 6 weeks of Rx with ancef IV (to cover for possibility of SBE). completed. PICC is out. (9) Joint contracture of left lower leg: Plan: Cause of contractures/hypertonicity?? (10) Hypoalbuminemia: Plan: Has seen rustic fence builder. Cont protein/diet supplements. Add MVI, vit C, zinc. Increase thiamine dose to 200mg BID has he has lab-confirmed deficiency. (11) Restless leg syndrome: Plan: Continue ropinirole 2 PO BID (12) Anemia: Plan: Recent trans-sat was <20%. Overall his iron studies are most c/w anemia of chronic disease with element of Fe deficiency as well. H/H stable for numerous days in a row without any overt GI bleeding. Venofer 300mg daily x 3 days on 06/22, 06/23, and 06/24. 200mg also given on 07/03. Consider recheck of iron studies. (13) Rheumatoid arthritis: Plan: Takes etanercept chronically. Last dose uncertain. He would need to get his dose from [facility] in order to give it. Last dose uncertain - I checked with our pharmacy and he has NOT received any Enbrel over his last few hospital stays. (14) Hypomagnesemia: Plan: level wnl today (15) Severe protein-calorie malnutrition: Plan: see hypoalbuminemia above (16) DVT prophylaxis: Plan: Continue Eliquis (17) Paraplegia: Plan: 2nd to c-spine fracture?? will d/w orthopedics (18) Discharge planning issues: Plan: patient was residing at [facility] prior to this admission. he told prior MD that he wanted to return home but that is not possible for a variety of reasons. social work heavily involved. ?needing court order for him to return to [facility] at discharge?? Admission and Anticipated Discharge Date Admission Date: June 20, 2021 Subjective patient laying in bed watching TV. he asks for "boots" to be placed on both heels/feet. he asks that I don't manipulate his feet/legs, however, because it is uncomfortable. he does report being able to feed himself with his hands "if he's in a wheelchair" but can't do so in bed. hasn't walked since 1994 based on his recollection?? prior to living at [facility] [place], and prior to that in an apartment [place]. patient reports he has 2 kids but doesn't talk to them regularly. he admits to poor appetite. asks if milk has protein. he denies any respiratory symptoms. denies dyspnea. tele overnight wnl. Review of Systems Review of Systems: gen - endorses fatigue, anorexia. ENT - denies mouth pain. CV - denies chest pain. Pulm - some cough. GI - denies abd pain. Derm - ulcer on left heel. Physical Exam Physical Exam: Gen: chronically ill appearing, awake, alert, oriented x 3 but poor insight Mouth: MMM, no lesions or thrush Neck: JVD present Heart: RRR, s1 s2, no murmur Lungs: crackles b/l bases, minimal scattered wheeze b/l Abd: soft, mildly distended (abd wall edema?), BS+, NT Neuro: severe contractures / hypertonicity x 4 extremities Skin: unable to examine the left heel ulcer due to his hypertonicity Ext: <1+ edema, pulses 2+ b/l; b/l arms with 1+ edema, worse on left Psych: very poor insight but surprisingly oriented x 3 Results & Data Results & Data ([facility]) Vital Signs (Past 12 Hours) Vital Signs Temp Pulse Pulse Resp BP BP Pulse Ox 07/14/21 14:44 36.9 C 68 20 139/76 99 07/14/21 11:22 36.8 C 86 20 146/71 H 97 07/14/21 09:42 85 07/14/21 07:39 84 07/14/21 07:21 36.7 C 92 H 20 128/64 96 07/14/21 04:04 37.1 C 92 H 18 135/78 96 Laboratory Results Laboratory Results - last 24 hr 07/14/21 07/14/21 06:29 06:29 WBC 5.69 RBC 3.40 L Hgb 8.4 L Hct 27.5 L MCV 80.9 MCH 24.7 L MCHC 30.5 L RDW Std Deviation 56.0 H RDW Coeff of Jayjay 19.0 H Plt Count 396 MPV 8.4 Immature Gran % (Auto) 0.4 Neut % (Auto) 82.8 Lymph % (Auto) 9.8 Sumner % (Auto) 3.3 Eos % (Auto) 3.5 Baso % (Auto) 0.2 Neut # (Auto) 4.71 Lymph # (Auto) 0.56 L Sumner # (Auto) 0.19 Eos # (Auto) 0.20 Baso # (Auto) 0.01 Immature Gran # (Auto) 0.02 Sodium 133 L Potassium 3.8 Chloride 97 L Carbon Dioxide 28 Anion Gap 8.0 BUN 24 H Creatinine 0.46 L Est Cr Clr Drug Dosing 163.1 Est GFR ( Amer) 135.4 Est GFR (Non-Af Amer) 116.9 BUN/Creatinine Ratio 51.5 H Glucose 91 Calcium 8.0 L Phosphorus 3.9 Magnesium 2.2 Total Bilirubin 0.4 AST 25 ALT 39 Alkaline Phosphatase 97 Total Protein 5.6 L Albumin 1.6 L Globulin 4.0 Albumin/Globulin Ratio 0.4 L PG Care Time/CCT Total # of Minutes Spent Total Time Spent with Patient: Total time spent is greater than 50% in coordination of care (as documented) at patient's floor/unit and/or counseling patient: Coding Level of Care Code 96164 Subseq Hosp Care Lvl 3 Diagnoses Acute on chronic combined systolic (congestive) and diastolic (congestive) heart failure I50.43 Altered mental status R41.82 Open wound of heel S91.309A Acute respiratory failure with hypoxia J96.01 Afib I48.91 Pleural effusion J90 Cervical spine fracture S12.9XXA Bacteremia R78.81 Joint contracture of left lower leg M24.562 Hypoalbuminemia E88.09 Restless leg syndrome G25.81 Anemia D64.9 Rheumatoid arthritis M06.9 Rheumatoid arthritis location: unspecified site Rheumatoid factor presence: unspecified presence DVT prophylaxis Z29.9 Hypomagnesemia E83.42 Severe protein-calorie malnutrition E43 Discharge planning issues Z02.9 Paraplegia G82.20 (1) Rheumatoid arthritis Rheumatoid arthritis location: unspecified site Rheumatoid factor presence: unspecified presence Qualified Code(s): M06.9 - Rheumatoid arthritis, unspecified
[2021-07-14] MEDS: THIAMINE HCL 200 MG in SODIUM CHLORIDE 0.9% 50 ML IV SCH (20:18)
[2021-07-14] MEDS: BACLOFEN 10 MG TAB PO SCH (20:19)
[2021-07-14] MEDS: ATORVASTATIN 40 MG TAB PO SCH (20:21)
[2021-07-15] MEDS: traMADol HCL 50 MG TABLET PO PRN ×2 (05:54→20:01)
[2021-07-15 07:27] LABS: BUN Creatinine Ratio 46.2 (10-20); Calcium 8.1 mg/dl (8.5-10.1); Est GFR (African American) 120.6 ml/min; Est GFR (Non-African American) 104.1 ml/min; Potassium 3.8 mmol/L (3.5-5.1)
[2021-07-15] MEDS: CEROVITE ADV FORMULA TAB PO SCH (07:59)
[2021-07-15] MEDS: POLYETHYLENE (MIRALAX) 17 GM PACK PO SCH (07:59)
[2021-07-15] MEDS: FERROUS SULFATE 325 MG TAB PO SCH ×2 (07:59→16:47)
[2021-07-15] MEDS: rOPINIRole HCL 1 MG TABLET PO SCH ×2 (07:59→20:03)
[2021-07-15] MEDS: FOLIC ACID 1 MG TAB PO SCH (08:00)
[2021-07-15] MEDS: FUROSEMIDE 40 MG in SYRINGE 0 ML IV SCH (08:00)
[2021-07-15] MEDS: APIXABAN 5 MG TABLET PO SCH ×2 (08:00→20:04)
[2021-07-15] MEDS: DIGOXIN 0.25 MG TAB PO SCH (08:00)
[2021-07-15] MEDS: ZINC SULFATE 220 MG CAPSULE PO SCH (08:00)
[2021-07-15] MEDS: BACLOFEN 10 MG TAB PO SCH ×2 (08:00→20:04)
[2021-07-15] MEDS: SENNA 8.6 MG TAB PO SCH (08:00)
[2021-07-15] MEDS: METOPROLOL SUCC 50MG EXT REL TAB PO SCH (08:00)
[2021-07-15] MEDS: ASCORBIC ACID 500 MG TAB PO SCH ×2 (08:00→20:03)
[2021-07-15] MEDS: POTASSIUM CHLORIDE CRTAB 20 MEQ TABCR PO SCH (08:00)
[2021-07-15] MEDS: THIAMINE HCL 200 MG in SODIUM CHLORIDE 0.9% 50 ML IV SCH ×2 (08:01→19:56)
[2021-07-15] MEDS ORDERED: predniSONE 20 MG TAB PO STA (16:22)
[2021-07-15] MEDS: ATORVASTATIN 40 MG TAB PO SCH (20:03)
--- NOTE | 2021-07-15 22:19 | Hospitalist Progress Note ---
Date of Service July 15, 2021 Assessment & Plan (1) Acute on chronic combined systolic (congestive) and diastolic (congestive) heart failure: Plan: Continues with NC O2 requirement but doesn't examine overtly volume overloaded. He does have 3rd spacing likely from the severe hypoalbuminemia. Echo from 06/24 with EF 45-50% with hypokinesis of the inferior wall and small pericardial effusion. Per nursing has had little UOP with AM lasix today thus will stop IV lasix. Repeat BMP am. Cont metoprolol succinate. Lisinopril on hold due to recent hypotension. Resume if BPs and Cr remain stable. Systolic CHF is on the basis of ischemia given the WMA on echo. He has had no ischemic symptoms during the last few days, however. (2) Altered mental status: Plan: I am truly uncertain about baseline MS. He seemed more confused today than yesterday, and the previous attending also reported intermittent confusion. Baclofen - which I started yesterday - could contribute. Follow carefully. (3) Open wound of heel: Plan: L heel. Pressure ulcer due to severe contractures & bedbound status. Recent culture with pseudomonas (pansensitive) and MRSA. s/p 7 day course of appropriate Rx for each. Now off antibiotics. Recent MRI with no obvious osteomyelitis. Seen by Dr Saba, orthopedics - wound care advised, offloading of heels (if able to), etc. Nursing attempted waffle boots but unable due to contractures. (4) Acute respiratory failure with hypoxia: Plan: 2nd acute/chronic CHF. Possible small subsegmental RUL PE on recent CTA unlikely to be playing much of a role. Has been aggressively diuresed throughout his stay. On eliquis for a.fib/PEs. (5) Afib: Plan: Remains on metoprolol succinate 200mg PO daily and digoxin 0.25mg daily. Recent dig level acceptable. Continue Eliquis and telemetry. (6) Pleural effusion: Plan: Secondary to CHF, severe hypoalbuminemia, etc. O2 sats stable. 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 Dr Hassan saw earlier in June -- poor surgical candidate. Would need surgical repair at tertiary care care. Cont soft collar with transfers and movements - if he will comply; I ordered a new one today. 07/[address] unchanged from prior imaging. Is the c-spine fracture with canal compromise the cause of his chronic contractures and acquired paraplegia?? (he is nearly a partial quad with arm dysfunction as well) (8) Bacteremia: Plan: MSSA bacteremia - s/p 6 weeks of Rx with ancef IV (to cover for possibility of SBE). completed his abx course. PICC is out. (9) Joint contracture of left lower leg: Plan: Cause of contractures/hypertonicity?? c-spine C2 fracture? (10) Hypoalbuminemia: Plan: Has seen autism specialist. Cont protein/diet supplements. Added MVI, vit C, zinc. Increased thiamine dose to 200mg BID has he has lab-confirmed deficiency. I noticed that "gluten" is on his allergy list but I can't find a dx of celiac. Regardless will change regular diet to gluten-free. (11) Restless leg syndrome: Plan: Continue ropinirole 2 PO BID (12) Anemia: Plan: Recent trans-sat was <20%. Overall his iron studies are most c/w anemia of chronic disease with element of Fe deficiency as well. H/H stable for numerous days in a row without any overt GI bleeding. Heme neg stool. Venofer 300mg daily x 3 days on 06/22, 06/23, and 06/24. 200mg also given on 07/03. Consider recheck of iron studies but defer for now. (13) Rheumatoid arthritis: Plan: Takes etanercept chronically. Last dose uncertain. He would need to get his dose from [facility] in order to give it. I checked with our pharmacy and he has NOT received any Enbrel over his last few hospital stays. He reported today he "hurts all over" in his joints. Will restart prednisone 40mg daily. (14) Hypomagnesemia: Plan: repeat level am (15) Severe protein-calorie malnutrition: Plan: see hypoalbuminemia above see #10 above (16) DVT prophylaxis: Plan: Continue Eliquis (17) Paraplegia: Plan: 2nd to c-spine fracture?? uncertain, but I am suspicious it is contributing to his bed-bound, partial quad status I have no other reason for his current state (18) Discharge planning issues: Plan: patient was residing at [facility] prior to this admission. he told prior MD that he wanted to return home but that is not possible. social work heavily involved. ?needing court order for him to return to [facility] at discharge (per prior attending's note). His prognosis is very, very poor. He will remain bed-bound given his partial quad status. Will ask for formal palliative care consultation. Admission and Anticipated Discharge Date Admission Date: June 20, 2021 Subjective tele overnight - a.fib, rates controlled he was in a deep sleep when I first arrived he awoke to his name being called - was groggy and a bit out of it today vs yesterday I discussed with him that I reviewed his case with Dr Hassan (the C2 Fx) explained he was an extremely poor surgical consult explained that his prognosis is guarded and that we should discuss goals of care discussed that I would involve palliative care staff report his soft collar is missing previously he was refusing to wear it any way he was placed into the wheelchair today and has difficulty using arms to feed himself denied any specific complaints today Review of Systems Review of Systems: gen - fatigue, weak, poor appetite CV - no chest pain Pulm - no cough; denies dyspnea GI - no abd pain Physical Exam Physical Exam: Gen: chronically ill appearing, awake but groggy; seems confused today Mouth: MM dry Neck: no JVD Heart: irregular, s1 s2 Lungs: crackles b/l bases - minimal Abd: soft, mildly distended (abd wall edema suspected), BS+, NT Neuro: severe contractures / hypertonicity x 4 extremities; trying to passively place the legs through ROM is nearly impossible; able to range the arms albeit it is difficult and this causes discomfort Skin: unable to examine the left heel ulcer due to his hypertonicity Ext: <1+ edema, pulses 2+ b/l; b/l arms with 1+ edema Musculo: synovitis of multiple small joints of hands Results & Data Results & Data ([facility]) Vital Signs (Past 12 Hours) Vital Signs Temp Pulse Pulse Resp BP BP Pulse Ox 07/15/21 19:25 36.9 C 106 H 18 150/76 H 93 07/15/21 14:56 74 07/15/21 11:35 37.1 C 81 18 111/58 L 96 Laboratory Results Laboratory Results - last 24 hr 07/15/21 07/15/21 06:33 10:26 Sodium 134 L Potassium 3.8 Chloride 98 Carbon Dioxide 30 Anion Gap 6.0 BUN 28 H Creatinine 0.61 Est Cr Clr Drug Dosing 123.0 Est GFR ( Amer) 120.6 Est GFR (Non-Af Amer) 104.1 BUN/Creatinine Ratio 46.2 H Glucose 101 H Calcium 8.1 L Stool Occult Bld Scrn Negative PG Care Time/CCT Total # of Minutes Spent Total Time Spent with Patient: Total time spent is greater than 50% in coordination of care (as documented) at patient's floor/unit and/or counseling patient: Coding Level of Care Code 86231 Subseq Hosp Care Lvl 2 Diagnoses Acute on chronic combined systolic (congestive) and diastolic (congestive) heart failure I50.43 Altered mental status R41.82 Open wound of heel S91.309A Acute respiratory failure with hypoxia J96.01 Afib I48.91 Pleural effusion J90 Cervical spine fracture S12.9XXA Bacteremia R78.81 Joint contracture of left lower leg M24.562 Hypoalbuminemia E88.09 Restless leg syndrome G25.81 Anemia D64.9 Rheumatoid arthritis M06.9 Rheumatoid arthritis location: unspecified site Rheumatoid factor presence: unspecified presence Hypomagnesemia E83.42 Severe protein-calorie malnutrition E43 DVT prophylaxis Z29.9 Paraplegia G82.20 Discharge planning issues Z02.9 (1) Rheumatoid arthritis Rheumatoid arthritis location: unspecified site Rheumatoid factor presence: unspecified presence Qualified Code(s): M06.9 - Rheumatoid arthritis, unspecified
[2021-07-16 01:10] LABS: BUN Creatinine Ratio 53.2 (10-20); Calcium 8.5 mg/dl (8.5-10.1); Creatinine Clr Calc Pharmacy 113.7 ml/min; Est GFR (African American) 116.8 ml/min; Est GFR (Non-African American) 100.7 ml/min; Magnesium 1.9 mg/dl (1.8-2.4); Potassium 4.1 mmol/L (3.5-5.1)
--- NOTE | 2021-07-16 01:14 | Communication Note ---
Date of Service: July 16, 2021 Patient with increasing episodes of 3-7 beat V-tach runs overnight. Repeat BMP with K 4.1 and Mag 1.9. -Will give 1g Mag IV now for K>4 and Mag >2 -Recheck in AM Resident Activity Tracking Resident Involvement: Resident Care Provided and Doctor Of Optometry Coverage Note Care Provided: Adult [facility] Medicine
[2021-07-16] MEDS ORDERED: MAGNESIUM SULFATE / D5W 1 GM/100 ML BAG IV ONE (02:00)
[2021-07-16] MEDS ORDERED: FUROSEMIDE 40 MG in SYRINGE 0 ML IV ONE (04:14)
[2021-07-16] MEDS ORDERED: FUROSEMIDE 40 MG/4 ML VIAL IV ONE ×2 (04:22→04:30)
--- NOTE | 2021-07-16 04:49 | Communication Note ---
Date of Service: July 16, 2021 Notified that patient was becoming more diaphoretic. Vitals BP 145/76, HR 88. Came to room to reevaluate patient. Patient laying on bed alert and awake. Answering questions somewhat appropriately, though questioning the need for further XRs. Explained to patient that we were concerned about his breathing to which his reply was concern about cancer from the XR. Ultimately agreeable to treatment and XR. Patient also with more runs of vtach. Had not gotten magnesium from earlier due to extravasation. Exam: Heart tachycardic, no murmur Lungs - b/l course sounding with crackles at bases to mid lung Plan: -Will order for XR now though suspect fluid overload -Lasix 40mg ordered -Reorder 1mg mag as it had extravasated -Will give morning dose of metoprolol succinate now Resident Activity Tracking Resident Involvement: Resident Care Provided and Senior Project Coordinator Coverage Note Care Provided: Adult Hospital Medicine
[2021-07-16] MEDS: METOPROLOL SUCC 50MG EXT REL TAB PO SCH (05:11)
[2021-07-16 07:59] LABS: Albumin Level 1.9 gm/dl (3.4-5.0); BUN Creatinine Ratio 49.5 (10-20); Calcium 8.3 mg/dl (8.5-10.1); Creatinine Clr Calc Pharmacy 109.8 ml/min; Est GFR (Non-African American) 100.1 ml/min; Potassium 3.9 mmol/L (3.5-5.1)
[2021-07-16] MEDS: POLYETHYLENE (MIRALAX) 17 GM PACK PO SCH (08:35)
[2021-07-16] MEDS: CEROVITE ADV FORMULA TAB PO SCH (08:36)
[2021-07-16] MEDS: ASCORBIC ACID 500 MG TAB PO SCH ×2 (08:36→20:54)
[2021-07-16] MEDS: SENNA 8.6 MG TAB PO SCH (08:36)
[2021-07-16] MEDS: rOPINIRole HCL 1 MG TABLET PO SCH ×2 (08:36→20:46)
[2021-07-16] MEDS: FOLIC ACID 1 MG TAB PO SCH (08:36)
[2021-07-16] MEDS: DIGOXIN 0.25 MG TAB PO SCH (08:36)
[2021-07-16] MEDS: APIXABAN 5 MG TABLET PO SCH ×2 (08:37→20:45)
[2021-07-16] MEDS: BACLOFEN 10 MG TAB PO SCH ×2 (08:37→20:46)
[2021-07-16] MEDS: THIAMINE HCL 200 MG in SODIUM CHLORIDE 0.9% 50 ML IV SCH ×2 (08:37→20:53)
[2021-07-16] MEDS: FERROUS SULFATE 325 MG TAB PO SCH ×2 (08:37→16:16)
[2021-07-16] MEDS: ZINC SULFATE 220 MG CAPSULE PO SCH (08:37)
[2021-07-16] MEDS: traMADol HCL 50 MG TABLET PO PRN ×2 (08:38→17:36)
[2021-07-16] MEDS ORDERED: predniSONE 20 MG TAB PO STA (08:40)
[2021-07-16] MEDS: POTASSIUM CHLORIDE CRTAB 20 MEQ TABCR PO SCH (09:17)
--- NOTE | 2021-07-16 09:48 | XRay Report ---
XR chest 1V portable CLINICAL HISTORY: sob COMPARISON STUDY: July 13, 2021 FINDINGS: No pneumothorax. Mild interval worsening/redistribution of the right pleural effusion, now appear moderate. Previously seen partial opacification of the midportion of the left hemidiaphragm is unchanged and might repres ent small left pleural effusion or/and associated atelectasis/infiltrate within left lower lung. Mild diffuse reticular nodular prominence of pulmonary interstitium is slightly worsened since prior. Cardiomediastinal silhouette is stable. Pulmonary vasculature is indistinct. Aorta is calcified.. Osseous structures: Osteopenia. Degenerative changes of bilateral shoulders and spine. IMPRESSION: 1. Mild interval worsening/redistribution of the right pleural effusion. Possible stable pleural eff usion on the left. 2. Mild interval worsening of diffuse reticular nodular prominence of pulmonary interstitium which i s seen bilaterally and might represent pulmonary edema versus other etiology. 3. Stable atelectasis/infiltrate at the left lower lung. 4. The rest of findings as above. ACT 112: Negative or not required by law. The above report was generated using voice recognition software. It may contain grammatical, syntax o r spelling errors. Electronically signed by: Yessica Clemente DO 07/16/2021 9:47 AM
--- NOTE | 2021-07-16 12:28 | Palliative Care Consultation ---
Date of Consultation July 16, 2021 Assessment & Plan (1) Palliative care encounter: Mr. Dailey has a POLST form on his chart that was completed at [facility] in May of this year. It indicates that he would want full code and full treatment. I asked him about that. He says that he recalls completing that and that we will not convince him to "kill myself". I asked him what he meant by that and he became irritable and asked me to leave the room. I reassured him that we were trying to understand what his wishes were to ensure that we are providing care consistent with his wishes. He told me that he would want us to do anything that we can to keep him alive. I asked him if he had any concerns about what his life and level of function would be like if we did that or whether there were any limitations that he could imagine for his care. He is quite emphatic that he would want any care necessary. I also asked him who he would want to make decisions for him if he were unable to do so. He told me that he would want us to follow what he has already said. He is confused and despite my introducing myself as Dr. Betancourt, he repeatedly asked me if I was the trademark affixer or the insurance claim representative. 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 I spoke with social work at [facility] who confirmed the POLST form was completed there in May. They tell me that he was cogent and capable at the time that he completed this. Despite his confusion and questionable capacity here, his wishes do seem to be consistent. Though [facility] this is not the case. They do not have any contacts listed and noted that just as he has here, he is adamant that no one else be contacted to discuss his care. I discussed with case management who also noted that he is involved with [employer] for possible appointment of guardianship. I think that would be a very appropriate step at this time. (2) Acute on chronic combined systolic (congestive) and diastolic (congestive) heart failure: (3) Altered mental status: (4) Paraplegia: (5) Afib: History of Present Illness Reason for Consultation: goals of care Requesting Physician: Dr. Longoria Attending Physician: Brendan Longoria History of Present Illness 66 yo gentleman with a chronic, odontoid fracture and partial quadreplegia who has most recently been residing at [facility]. He was admitted to the hospital with complaint of shortness of breath and a syncopal epidsode during routine care. He does have a history of diastolic heart failure and has been diuresed. He also has atrial flutter and cardiomyopathy. He is essentially dependent for all care, requiring assistance with feeding and repositioning. He is unable to scratch an itch on his head due to upper extremity weakness and contractures. He does is able to sit in his wheelchair. He has variable appetite with protein calorie malnutrition and an albumin level of 1.9. Per RN, he has had variable mental status. At this time he is somnolent but arousable. He is confused and somewhat paranoid. He complains of discomfort in his legs from spasm which keeps him awake at night. He is on baclofen and ropinirole as well as prn tramadol. He does also have a history of rheumatoid arthritis. Allergies Allergy/AdvReac Type Severity Reaction Status Date / Time gluten AdvReac Verified 07/14/21 17:25 Home Medications Medication Instructions Recorded Confirmed Type betamethasone dipropionate 0.05 % 1 applic TOPICAL BID PRN 05/11/21 06/20/21 History lotion terazosin 2 mg capsule 2 mg PO AMHS 05/11/21 06/20/21 History atorvastatin 40 mg tablet 40 mg PO HS #0 tab 05/17/21 06/20/21 Rx lisinopril 5 mg tablet (Zestril) 5 mg PO QAM #0 tab 05/17/21 06/20/21 Rx etanercept 50 mg/mL (1 mL) 50 mg SUBCUT WK #12 ml 05/22/21 06/20/21 Rx subcutaneous syringe (Enbrel) acetaminophen 325 mg tablet 650 mg PO Q4H PRN MDD 3 GRAMS/24 06/05/21 06/20/21 History (Tylenol) HOURS baclofen 10 mg tablet 10 mg PO Q6H PRN 06/05/21 06/20/21 History carvedilol 6.25 mg tablet 6.25 mg PO BID 06/05/21 06/20/21 History cefazolin 2 gram/100 mL in 0.9 % 50 ml IV Q8H 06/05/21 06/20/21 History sodium chloride intravenous solution docusate sodium 100 mg capsule 100 mg PO BIDM 06/05/21 06/20/21 History ferrous sulfate 325 mg (65 mg 325 mg PO BIDM 06/05/21 06/20/21 History iron) tablet lidocaine HCl 2 % mucosal solution 5 ml MUCOUS MEMBRANE ACHS 06/05/21 06/20/21 History (Lidocaine Viscous) magnesium hydroxide 400 mg/5 mL 30 ml PO DAILY PRN 06/05/21 06/20/21 History oral suspension (Milk of Magnesia) omega-3 fatty acids 1,000 mg 1,000 mg PO BIDM 06/05/21 06/20/21 History capsule (Fish Oil Concentrate) ropinirole 2 mg tablet 2 mg PO Q12H 06/05/21 06/20/21 History tramadol 50 mg tablet 50 - 100 mg PO Q4H PRN 06/05/21 06/20/21 History albuterol sulfate 2.5 mg INHALATION Q8 PRN 06/20/21 06/20/21 History multivitamin 1 tab PO DAILY 06/20/21 06/20/21 History apixaban 5 mg tablet (Eliquis) 5 mg PO BID 06/21/21 06/21/21 History Patient History Medical History Acute respiratory failure with hypoxemia Acute respiratory failure with hypoxia Atrial flutter Cardiomyopathy Cervical spine fracture Chronic diastolic CHF (congestive heart failure) Chronic neck pain History of cardioversion Homeless single person Hx of fracture of leg left - not current Hypertension Joint contracture of left lower leg Joint contracture of right lower leg Odontoid fracture Pneumonia Rheumatoid arthritis Thoracic vertebral fracture Surgical History History of tooth extraction Family History Father Family history of diabetes mellitus Denies family history of Ovarian cancer Prostate cancer Myocardial infarction Breast cancer Colorectal cancer Social History Smoking Status: Unknown if ever smoked Tobacco Type: Cigarettes Age Started Using Tobacco: 16; Age Quit Using Tobacco: 50; packs per day: 1; Years Smoked: 34; Cigarettes Per Day: 20; Number of Years Since Quit: 15; Second Hand Exposure: No; Hx Alcohol Use: No Hx Substance Use: No Preferred Language: Thai Communication Ability: Effective Visual Impairment: No Limitations Hearing Ability: Normal Bottom Turning Lathe Turner Required: No Beliefs That Will Affect Care: None marital status: Single Current Living Situation: Care Home current occupational status: unemployed How many Children do You have: 3 Feels Safe at Home: Yes Childhood Exposure to Second-Hand Smoke: Yes during the past year weight has: increased > 10 lbs Dental Care, Regularly: Yes Physical Activity Frequency: Does not Exercise Seatbelt Use: always Sunscreen Use: No Assistive Devices: None Review of Systems Review of Systems: [place] Symptom Assessment Scale Pain 1/3 Dyspnea 0/3 Anorexia 2/3 Nausea 0/3 Anxiety 1/3 Fatigue 2/3 Drowsiness 1/3 Palliative Performance Score 40% Physical Exam Constitutional: + disheveled; no acute distress Respiratory: normal respiratory effort; no labored breathing Cardiovascular: Rate/Rhythm: regular rate and regular rhythm Gastrointestinal (Abdomen): not distended Musculoskeletal: flexion contractures Neurologic: functional quadriplegia Psychiatric: Orientation: oriented to person and oriented to place Affect: + irritable affect Thought Content: + paranoid Results & Data ([facility]) Vital Signs (Past 12 Hours) Vital Signs Temp Pulse Pulse Resp BP BP Pulse Ox 07/16/21 08:36 76 07/16/21 08:00 70 07/16/21 07:16 97.5 F L 61 18 152/74 H 100 07/16/21 05:11 122 H 151/53 H 99 07/16/21 03:34 95 H 18 146/76 H 95 PG Care Time/CCT Total # of Minutes Spent Total Time Spent: 90 Total Time Spent with Patient: Total time spent is greater than 50% in coordination of care (as documented) at patient's floor/unit and/or counseling patient: goals of care, surrogate decision maker, code status, coordination of c are Coding Level of Care Code 05399 Initial Inpt Care Lvl 3 Diagnoses Palliative care encounter Z51.5 Acute on chronic combined systolic (congestive) and diastolic (congestive) heart failure I50.43 Altered mental status R41.82 Paraplegia G82.20 Afib I48.91
[2021-07-16] MEDS ORDERED: STAT IV Infusion **Titration per Protocol STA (18:43)
[2021-07-16] MEDS ORDERED: 0.2 MICRON FILTER SET 1 EA IV ONE (18:43)
[2021-07-16] MEDS ORDERED: AMIODARONE / D5W 150 MG/100 ML BAG IV STA (18:43)
[2021-07-16] MEDS ORDERED: AMIODARONE IV BOLUS & DRIP IV STA (18:43)
[2021-07-16] MEDS ORDERED: AMIODARONE / D5W 360 MG/200 ML BAG IV ONE (19:15)
--- NOTE | 2021-07-16 19:17 | Cardiology Progress Note ---
Date of Service July 16, 2021 Assessment & Plan (1) Acute on chronic combined systolic (congestive) and diastolic (congestive) heart failure: Plan: Is not appear to have significant pulmonary vascular congestion. Attempts at diuresis have been met with only mild urine output. I think he requires any additional diuresis currently. (2) Afib: Plan: Overall good rate control. He is on systemic anticoagulation. In order to facilitate institution of amiodarone, we will discontinue his digoxin. (3) Pericardial effusion: Plan: Small on last echocardiogram (4) Cardiomyopathy: Plan: -borderline left ventricular ejection fraction 45-50%. -essentially unchanged from May 2021. -continue metoprolol succinate and lisinopril. (5) Ventricular tachycardia: Plan: He has had runs of wide complex tachycardia. Most of these last a few seconds, possibly up to 20 seconds in duration. He did report some symptoms dizziness. Unclear correlation. His overall prognosis appears quite poor. I do not think is a good candidate for any device therapy if indicated. In order to attenuate some of his symptoms seems reasonable to start amiodarone. Will stop digoxin. Monitor heart rates and rhythm. Admission and Anticipated Discharge Date Admission Date: June 20, 2021 Subjective This afternoon the patient reported occasional episodes of dizziness. He has not been aware of any palpitations. No chest pain. He did not endorse ort hopnea but states that at times he does have some need to take a deep breath. Review of Systems Review of Systems: Per HPI Physical Exam Physical Exam: He was alert. He answers questions appropriate be. At times he was tangential and possibly confabulating. HEENT exam is negative. . Cardiovascular exam reveals an irregular regular rhythm with distant heart sounds. No obvious murmurs. Lungs note decreased breath sounds at the bases but no rales, rhonchi or wheezes. Extremities reveal intact radial artery pulses bilaterally. There is 1+ edema of the upper extremities. Results & Data ([facility]) Vital Signs (Past 12 Hours) Vital Signs Temp Pulse Pulse Resp BP BP Pulse Ox 07/16/21 15:24 36.4 C L 54 L 22 146/70 H 90 07/16/21 14:59 66 07/16/21 08:36 76 07/16/21 08:00 70 07/16/21 07:16 36.4 C L 61 18 152/74 H 100 Laboratory Results Abnormal Lab Results 07/16/21 07/16/21 07/16/21 00:31 04:15 07:02 Sodium 136 133 L Potassium 4.1 3.9 Chloride 99 100 Carbon Dioxide 30 28 Anion Gap 7.0 5.0 BUN 35 H 33 H Creatinine 0.66 0.67 Est Cr Clr Drug Dosing 113.7 109.8 Est GFR ( Amer) 116.8 116.0 Est GFR (Non-Af Amer) 100.7 100.1 BUN/Creatinine Ratio 53.2 H 49.5 H Glucose 144 H 141 H POC Glucose 141 H Calcium 8.5 8.3 L Magnesium 1.9 Albumin 1.9 L PG Care Time/CCT Total # of Minutes Spent Total Time Spent with Patient: Total time spent is greater than 50% in coordination of care (as documented) at patient's floor/unit and/or counseling patient: Coding Level of Care Code 08582 Subseq Hosp Care Lvl 2 Diagnoses Acute on chronic combined systolic (congestive) and diastolic (congestive) heart failure I50.43 Afib I48.91 Pericardial effusion I31.3 Cardiomyopathy I42.9 Ventricular tachycardia I47.2
[2021-07-16] MEDS: ATORVASTATIN 40 MG TAB PO SCH (20:49)
--- NOTE | 2021-07-16 20:52 | Hospitalist Progress Note ---
Date of Service July 16, 2021 Assessment & Plan (1) Ventricular tachycardia: Plan: I spoke with Dr Marquez from cardiology who subsequently saw Mr Ashlie. Dr Marquez feels that the runs of wide-complex tachycardia are likely VT. A.fib with aberrancy is possible but less likely. The VT is likely due to his cardiomyopathy rather than ischemia. Plan - * move to PCU * start amiodarone infusion * stop digoxin * continue metoprolol Appreciate Dr Marquez's assistance. (2) Acute on chronic combined systolic (congestive) and diastolic (congestive) heart failure: Plan: Continues with NC O2 requirement but doesn't examine overtly volume overloaded. He does have 3rd spacing likely from the severe hypoalbuminemia. Echo from 06/24 with EF 45-50% with hypokinesis of the inferior wall and small pericardial effusion. Per nursing has had little UOP with lasix overnight. I don't disagree that he appears to have pulm edema on cxr but again his response to lasix is poor. Cont metoprolol succinate. Lisinopril on hold. Systolic CHF is likely on the basis of ischemia given the WMA on echo. Can't rule out other causes. Appreciate Dr Marquez's assistance. (3) Altered mental status: Plan: I am truly uncertain about baseline MS. He has had waxing/waning MS during this protracted stay. Even at his best when he is alert, oriented x 3 - insight and judgement seem impaired. (4) Open wound of heel: Plan: L heel. Pressure ulcer due to severe contractures & bedbound status. Recent culture with pseudomonas (pansensitive) and MRSA. s/p 7 day course of appropriate Rx for each. Now off antibiotics. Recent MRI with no obvious osteomyelitis. Seen by Dr Saba, orthopedics - wound care advised. Nursing attempted waffle boots but unable due to contractures. Wound stable today. (5) Acute respiratory failure with hypoxia: Plan: 2nd acute/chronic CHF. Possible small subsegmental RUL PE on recent CTA unlikely to be playing much of a role. Has been aggressively diuresed throughout his stay. On eliquis for a.fib/PEs. (6) Afib: Plan: Remains on metoprolol succinate 200mg PO daily and digoxin 0.25mg daily. Recent dig level acceptable but stopping the digoxin given the addition of amiodarone as in #1 above. Continue Eliquis and telemetry. Moving to PCU. (7) Pleural effusion: Plan: Secondary to CHF, severe hypoalbuminemia, etc. O2 sats stable recent TSH in May wnl. creatinine wnl. no liver disease. 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 Dr Hassan saw earlier in June -- poor surgical candidate. Would need surgical repair at tertiary care care. Uncertain, given his numerous comorbidities and bed-bound status, if surgery would even be an option for him. Cont soft collar with transfers and movements - if he will comply (most days he will not wear). 07/[address] unchanged from prior imaging. Is the c-spine fracture with canal compromise the cause of his chronic contractures and acquired paraplegia?? (he is nearly a partial quad with arm dysfunction as well) (9) Bacteremia: Plan: MSSA bacteremia - s/p 6 weeks of Rx with ancef IV (to cover for possibility of SBE). completed his abx course. PICC is out. (10) Joint contracture of left lower leg: Plan: Cause of contractures/hypertonicity?? c-spine C2 fracture? cont baclofen. titrate to 10mg BID tomorrow if mental status is intact. (11) Hypoalbuminemia: Plan: Has seen material planning analyst. Cont protein/diet supplements. Added MVI, vit C, zinc. Increased thiamine dose to 200mg BID has he has lab-confirmed deficiency. I noticed that "gluten" is on his allergy list but I can't find a dx of celiac. Regardless changed regular diet to gluten-free. (12) Restless leg syndrome: Plan: Continue ropinirole 2 PO BID (13) Anemia: Plan: Recent trans-sat was <20%. Overall his iron studies are most c/w anemia of chronic disease with element of Fe deficiency as well. H/H stable for numerous days in a row without any overt GI bleeding. Heme neg stool. Venofer 300mg daily x 3 days on 06/22, 06/23, and 06/24. 200mg also given on 07/03. most recent h/h acceptable. (14) Rheumatoid arthritis: Plan: Takes etanercept chronically. Last dose uncertain. He would need to get his dose from [facility] in order to give it. I checked with our pharmacy and he has NOT received any Enbrel over his last few hospital stays. He reported yesterday that he "hurts all over" in his joints. Started prednisone 40mg daily on 07/15 for active RA. Cont such, taper over several weeks. Follows w/ rheum in [place]. (15) Hypomagnesemia: Plan: resolved (16) Severe protein-calorie malnutrition: Plan: see hypoalbuminemia above see #10 above (17) DVT prophylaxis: Plan: Continue Eliquis (18) Paraplegia: Plan: 2nd to c-spine fracture?? uncertain, but I am suspicious it is contributing to his bed-bound, partial quad status I have no other reason for his current state (19) Discharge planning issues: Plan: patient was residing at [facility] prior to this admission. he told prior MD that he wanted to return home but that is not possible. social work heavily involved. ?needing court order for him to return to [facility] at discharge (per prior attending's note). His prognosis is very, very poor. He will remain bed-bound given his partial quad status. Appreciate palliative care consultation. Patient wants full code and all measures taken for his health. Insight seems very poor, however, and I don't think he understands the complexities of his current health status. Has POLST on file indicating full code, all measures, etc. Appreciate palliative care consultation. He has no family to contact to give update to. Admission and Anticipated Discharge Date Admission Date: June 20, 2021 Subjective overnight and through the day today the patient is having runs of wide complex tachycardia most runs are brief - seconds in duration, with some up to 20-30 seconds he apparently was diaphoretic last night and the nocturnal [facility] resident was called to bedside to evaluate he does complain to me of dyspnea during my rounds the dyspnea comes/goes he is not coughing ate poorly at breakfast/lunch but did eat dinner per staff declined getting out of bed today he is not wearing his soft collar neck brace we discussed his palliative care discussion with Dr Betancourt today I reinforced with him that he had been hospitalized for nearly 4 weeks now and that he overall is doing fair-poor at best explained we were trying to formulate and refine goals of care since we are not making great progress at one point he said "you thinking of transferring me?" then, he stated, "I just need to get some physical therapy" - and "maybe wear a hard collar" [for his neck] his thought process was shifting from topic to topic - often unrelated Review of Systems Constitutional: + fatigue; no fever and no chills Respiratory: + wheezing; no cough and no pain on inspiration Cardiovascular: + dyspnea at rest; no chest pain and no orthopnea Gastrointestinal: no abdominal pain, no nausea and no vomiting Physical Exam Physical Exam: Gen: chronically ill appearing, awake and alert but poor historian and poor insight Mouth: MM dry; lips dry Neck: no JVD Heart: irregular, s1 s2, no murmur Lungs: crackles left base; decreased BS right base Abd: soft, BS+, NT Neuro: severe contractures / hypertonicity x 4 extremities; trying to passively place the legs through ROM is nearly impossible; passive ROM of the arms is improved today Ext: trace edema b/l legs; pulses 2+ b/l; b/l arms with 1+ edema Musculo: synovitis of multiple small joints of hands = improved today skin: left heel ulcer - mild drainage but no purulence or foul odor; no surrounding erythema Results & Data Results & Data ([facility]) Vital Signs (Past 12 Hours) Vital Signs Temp Pulse Pulse Resp BP Pulse Ox 07/16/21 19:00 36.5 C 72 20 149/73 H 99 07/16/21 15:24 36.4 C L 54 L 22 146/70 H 90 07/16/21 14:59 66 Laboratory Results Laboratory Results - last 24 hr 07/16/21 07/16/21 07/16/21 00:31 04:15 07:02 Sodium 136 133 L Potassium 4.1 3.9 Chloride 99 100 Carbon Dioxide 30 28 Anion Gap 7.0 5.0 BUN 35 H 33 H Creatinine 0.66 0.67 Est Cr Clr Drug Dosing 113.7 109.8 Est GFR ( Amer) 116.8 116.0 Est GFR (Non-Af Amer) 100.7 100.1 BUN/Creatinine Ratio 53.2 H 49.5 H Glucose 144 H 141 H POC Glucose 141 H Calcium 8.5 8.3 L Magnesium 1.9 Albumin 1.9 L Diagnostic Findings Chest X-Ray 07/16/21 04:12 XR chest 1V portable CLINICAL HISTORY: sob COMPARISON STUDY: July 13, 2021 FINDINGS: No pneumothorax. Mild interval worsening/redistribution of the right pleural effusion, now appear moderate. Previously seen partial opacification of the midportion of the left hemidiaphragm is unchanged and might represent small left pleural effusion or/and associated atelectasis/infiltrate within left lower lung. Mild diffuse reticular nodular prominence of pulmonary interstitium is slightly worsened since prior. Cardiomediastinal silhouette is stable. Pulmonary vasculature is indistinct. Aorta is calcified.. Osseous structures: Osteopenia. Degenerative changes of bilateral shoulders and spine. IMPRESSION: 1. Mild interval worsening/redistribution of the right pleural effusion. Possible stable pleural effusion on the left. 2. Mild interval worsening of diffuse reticular nodular prominence of pulmonary interstitium which is seen bilaterally and might represent pulmonary edema versus other etiology. 3. Stable atelectasis/infiltrate at the left lower lung. 4. The rest of findings as above. ACT 112: Negative or not required by law. The above report was generated using voice recognition software. It may contain grammatical, syntax or spelling errors. Electronically signed by: Yessica Clemente DO 07/16/2021 9:47 AM PG Care Time/CCT Total # of Minutes Spent Total Time Spent with Patient: Total time spent is greater than 50% in coord ination of care (as documented) at patient's floor/unit and/or counseling patient: Coding Level of Care Code 90927 Subseq Hosp Care Lvl 3 Diagnoses Acute on chronic combined systolic (congestive) and diastolic (congestive) heart failure I50.43 Altered mental status R41.82 Open wound of heel S91.309A Acute respiratory failure with hypoxia J96.01 Afib I48.91 Pleural effusion J90 Cervical spine fracture S12.9XXA Bacteremia R78.81 Joint contracture of left lower leg M24.562 Hypoalbuminemia E88.09 Restless leg syndrome G25.81 Anemia D64.9 Rheumatoid arthritis M06.9 Rheumatoid arthritis location: unspecified site Rheumatoid factor presence: unspecified presence Hypomagnesemia E83.42 Severe protein-calorie malnutrition E43 DVT prophylaxis Z29.9 Paraplegia G82.20 Discharge planning issues Z02.9 Ventricular tachycardia I47.2 (1) Rheumatoid arthritis Rheumatoid arthritis location: unspecified site Rheumatoid factor presence: unspecified presence Qualified Code(s): M06.9 - Rheumatoid arthritis, unspecified
[2021-07-17] MEDS: AMIODARONE / D5W 360 MG/200 ML BAG IV SCH ×4 (01:19→17:09)
[2021-07-17] MEDS: traMADol HCL 50 MG TABLET PO PRN ×3 (04:07→22:35)
[2021-07-17 05:36] LABS: BUN Creatinine Ratio 57.7 (10-20); Creatinine Clr Calc Pharmacy 113.2 ml/min; Est GFR (African American) 117.5 ml/min; Est GFR (Non-African American) 101.4 ml/min; Potassium 4.2 mmol/L (3.5-5.1)
[2021-07-17] MEDS: predniSONE 10 MG TABLET PO SCH (08:49)
[2021-07-17] MEDS: BACLOFEN 10 MG TAB PO SCH ×2 (08:50→22:21)
[2021-07-17] MEDS: ASCORBIC ACID 500 MG TAB PO SCH ×2 (08:50→22:34)
[2021-07-17] MEDS: rOPINIRole HCL 1 MG TABLET PO SCH ×2 (08:50→22:34)
[2021-07-17] MEDS: METOPROLOL SUCC 50MG EXT REL TAB PO SCH (08:51)
[2021-07-17] MEDS: FOLIC ACID 1 MG TAB PO SCH (08:51)
[2021-07-17] MEDS: SENNA 8.6 MG TAB PO SCH (08:51)
[2021-07-17] MEDS: FERROUS SULFATE 325 MG TAB PO SCH ×2 (08:52→17:10)
[2021-07-17] MEDS: APIXABAN 5 MG TABLET PO SCH ×2 (08:52→22:15)
[2021-07-17] MEDS: ZINC SULFATE 220 MG CAPSULE PO SCH (08:52)
[2021-07-17] MEDS: CEROVITE ADV FORMULA TAB PO SCH (08:52)
[2021-07-17] MEDS: POLYETHYLENE (MIRALAX) 17 GM PACK PO SCH (08:53)
[2021-07-17] MEDS: THIAMINE HCL 200 MG in SODIUM CHLORIDE 0.9% 50 ML IV SCH ×2 (08:55→22:14)
[2021-07-17] MEDS: POTASSIUM CHLORIDE CRTAB 20 MEQ TABCR PO SCH (08:55)
--- NOTE | 2021-07-17 12:41 | Cardiology Progress Note ---
Date of Service July 17, 2021 Assessment & Plan (1) Acute on chronic combined systolic (congestive) and diastolic (congestive) heart failure: Plan: -well compensated at this time. -diuretics currently being use p.r.n.. (2) Afib: Plan: -rate adequately controlled on metoprolol succinate and amiodarone. -tolerating Eliquis without difficulty. (3) Pericardial effusion: Plan: -follow-up echocardiogram noted a smaller effusion. -we will recheck an echocardiogram as an outpatient. (4) Cardiomyopathy: Plan: -borderline left ventricular dysfunction with ejection fraction 45-50%. -essentially unchanged from May 2021 -continue metoprolol succinate and lisinopril. (5) Ventricular tachycardia: Plan: -continue intravenous amiodarone until frequency ventricular tachycardia diminishes. -Dr. Marquez does not feel he is a good candidate for a device. Admission and Anticipated Discharge Date Admission Date: June 20, 2021 Subjective The patient is resting comfortably in bed without complaints of chest pain, dyspnea, or palpitations. Physical Exam Physical Exam: In general this is a well-developed well-nourished white male in no acute distress. HEENT exam is negative. Neck is supple with full carotid upstrokes. No obvious bruits. Jugular venous pressure is flat at 45. No thyromegaly. Cardiovascular exam reveals an irregular regular rhythm with distant heart sounds. No obvious murmurs. Lungs note decreased breath sounds at the bases but no rales, rhonchi or wheezes. Abdomen is soft and nontender without bruits. Extremities reveal intact radial artery pulses bilaterally. There is 1+ edema of the upper extremities. Results & Data ([facility]) Vital Signs (Past 12 Hours) Vital Signs Temp Pulse Pulse Resp BP BP Pulse Ox 07/17/21 12:18 36.6 C 68 26 H 165/65 H 98 07/17/21 11:27 47 L 15 165/65 H 07/17/21 10:27 75 22 160/103 H 07/17/21 09:27 69 20 155/89 H 07/17/21 08:27 81 28 H 143/100 H 99 07/17/21 07:30 36.4 C L 24 07/17/21 07:29 76 24 156/87 H 07/17/21 03:57 36.7 C 75 20 169/71 H 99 07/17/21 01:20 36.4 C L 68 20 167/87 H 96 Diagnostic Findings shelter monitor notes atrial fibrillation at baseline. Numerous runs of nonsustained ventricular tachycardia identified. PG Care Time/CCT Total # of Minutes Spent Total Time Spent with Patient: Total time spent is greater than 50% in coordination of care (as documented) at patient's floor/unit and/or counseling patient: Coding Level of Care Code 52542 Subseq Hosp Care Lvl 3 Diagnoses Acute on chronic combined systolic (congestive) and diastolic (congestive) heart failure I50.43 Afib I48.91 Pericardial effusion I31.3 Cardiomyopathy I42.9 Ventricular tachycardia I47.2
[2021-07-17] MEDS: ATORVASTATIN 40 MG TAB PO SCH (22:34)
--- NOTE | 2021-07-17 22:47 | Hospitalist Progress Note ---
Date of Service July 17, 2021 Assessment & Plan (1) Ventricular tachycardia: Plan: IMPROVING s/p amiodarone infusion initiation last evening appreciate cardiology assistance cont BB digoxin has been d/c if we have bradycardia from amio with BB consider reduction of metoprolol dose (is on 200mg daily) (2) Acute on chronic combined systolic (congestive) and diastolic (congestive) heart failure: Plan: appears compensated O2 requirement - etiology?? cont BB ultimately needs his low-dose GREGG back diuretics on hold right now (3) Altered mental status: Plan: He has had waxing/waning MS during this protracted stay but is a/o x 3 today. insight and judgement seem impaired most times during our conversations. (4) Open wound of heel: Plan: L heel. Pressure ulcer due to severe contractures & bedbound status. Recent culture with pseudomonas (pansensitive) and MRSA. s/p 7 day course of appropriate Rx for each. Now off antibiotics. Recent MRI with no obvious osteomyelitis. Seen by Dr Saba, orthopedics - wound care advised. Nursing attempted waffle boots but unable due to contractures. cont local wound care. (5) Acute respiratory failure with hypoxia: Plan: 2nd acute/chronic CHF. Possible small subsegmental RUL PE on recent CTA unlikely to be playing much of a role. Has been aggressively diuresed throughout his stay. On eliquis for a.fib/PEs. remains on NC O2 - attempt to wean. (6) Afib: Plan: permanent. Remains on metoprolol succinate 200mg PO daily. Recent dig level acceptable but digoxin stopped given the addition of amiodarone as in #1 above. Continue Eliquis and telemetry. (7) Pleural effusion: Plan: Secondary to CHF, severe hypoalbuminemia, etc. O2 sats stable recent TSH in May wnl. creatinine wnl. no liver disease. 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 Dr Hassan saw earlier in June -- poor surgical candidate. Would need surgical repair at tertiary care care. Uncertain, given his numerous comorbidities and bed-bound status, if surgery would even be an option for him. Cont soft collar with transfers and movements - if he will comply (most days he will not wear). 07/[address] unchanged from prior imaging. Is the c-spine fracture with canal compromise the cause of his chronic c ontractures and acquired paraplegia?? (he is nearly a partial quad with arm dysfunction as well) (9) Bacteremia: Plan: MSSA bacteremia - s/p 6 weeks of Rx with ancef IV (to cover for possibility of SBE). completed his abx course. PICC is out. (10) Joint contracture of left lower leg: Plan: Cause of contractures/hypertonicity?? c-spine C2 fracture? cont baclofen. titrate to 10mg BID, then ultimately TID, if mental status is not affected. (11) Hypoalbuminemia: Plan: Has seen panel machine operator. Cont protein/diet supplements. Added MVI, vit C, zinc. Increased thiamine dose to 200mg BID has he has lab-confirmed deficiency. I noticed that "gluten" is on his allergy list but I can't find a dx of celiac. Regardless changed regular diet to gluten-free. no diarrhea at this time. (12) Restless leg syndrome: Plan: Continue ropinirole 2 PO BID (13) Anemia: Plan: Recent trans-sat was <20%. Overall his iron studies are most c/w anemia of chronic disease with element of Fe deficiency as well. H/H stable for numerous days in a row without any overt GI bleeding. Heme neg stool. Venofer 300mg daily x 3 days on 06/22, 06/23, and 06/24. 200mg also given on 07/03. most recent h/h acceptable. (14) Rheumatoid arthritis: Plan: Takes etanercept chronically. Last dose uncertain. He would need to get his dose from [facility] in order to give it. I checked with our pharmacy and he has NOT received any Enbrel over his last few hospital stays. Started prednisone 40mg daily on 07/15 for active RA. Synovitis and joints improved with such. Weaned to 30mg. Cont 30mg for 1 week, then taper after that. Follows w/ rheum in [place]. (15) Hypomagnesemia: Plan: resolved (16) Severe protein-calorie malnutrition: Plan: see hypoalbuminemia above see #10 above (17) DVT prophylaxis: Plan: Continue Eliquis (18) Paraplegia: Plan: 2nd to c-spine fracture?? uncertain, but I am suspicious it is contributing to his bed-bound, partial quad status I have no other reason for his current state (19) Discharge planning issues: Plan: Appreciate palliative care consultation. Patient wants full code and all measures taken for his health. Insight seems very poor, however, and I don't think he understands the complexities of his current health status. Has POLST on file indicating full code, all measures, etc. Appreciate palliative care consultation. He has no family to contact to give update to. social work heavily involved in his complex care. Admission and Anticipated Discharge Date Admission Date: June 20, 2021 Subjective overnight continued with frequent VT runs also had frequent VT runs this am VT became infrequent this afternoon pt reports he was "not feeling well" and having intermittent dyspnea these symptoms improved as the day went on joint inflammation and his ability to move the arms/hands much improved today s/p prednisone since earlier this week no new complaints Review of Systems Review of Systems: gen - weakness, anorexia CV - no chest pain GI - no abd pain Pulm - no cough Physical Exam Physical Exam: Gen: chronically ill appearing, awake and alert; oriented x 3 today Mouth: MM dry\\ Neck - no JVD heart - irregular, s1 s2 Lungs - decreased BS right base; minimal rales left base; CTA b/l otherwise Abd: soft, BS+, NT, ND, no HSM Neuro: severe contractures / hypertonicity x 4 extremities; trying to passively place the legs through ROM is nearly impossible (slight improvement in passive ROM today but still very severe); passive ROM of the arms is improved today Ext: trace edema b/l legs; pulses 2+ b/l; b/l arms with <1+ edema Musculo: synovitis of multiple small joints of hands again improved today Results & Data Results & Data ([facility]) Vital Signs (Past 12 Hours) Vital Signs Temp Pulse Pulse Resp BP BP Pulse Ox 07/17/21 16:00 65 07/17/21 15:15 36.8 C 57 L 22 167/95 H 98 07/17/21 13:00 64 25 H 07/17/21 12:30 56 L 12 07/17/21 12:18 36.6 C 68 26 H 165/65 H 98 07/17/21 11:27 47 L 15 165/65 H Laboratory Results Laboratory Results - last 24 hr 07/17/21 04:52 Sodium 133 L Potassium 4.2 Chloride 100 Carbon Dioxide 28 Anion Gap 5.0 BUN 38 H Creatinine 0.65 Est Cr Clr Drug Dosing 113.2 Est GFR ( Amer) 117.5 Est GFR (Non-Af Amer) 101.4 BUN/Creatinine Ratio 57.7 H Glucose 130 H Calcium 8.0 L PG Care Time/CCT Total # of Minutes Spent Total Time Spent with Patient: Total time spent is greater than 50% in coordination of care (as documented) at patient's floor/unit and/or counseling patient: Coding Level of Care Code 54836 Subseq Hosp Care Lvl 3 Diagnoses Ventricular tachycardia I47.2 Acute on chronic combined systolic (congestive) and diastolic (congestive) heart failure I50.43 Altered mental status R41.82 Open wound of heel S91.309A Acute respiratory failure with hypoxia J96.01 Afib I48.91 Pleural effusion J90 Cervical spine fracture S12.9XXA Bacteremia R78.81 Joint contracture of left lower leg M24.562 Hypoalbuminemia E88.09 Restless leg syndrome G25.81 Anemia D64.9 Rheumatoid arthritis M06.9 Rheumatoid arthritis location: unspecified site Rheumatoid factor presence: unspecified presence Hypomagnesemia E83.42 Severe protein-calorie malnutrition E43 DVT prophylaxis Z29.9 Paraplegia G82.20 Discharge planning issues Z02.9 (1) Rheumatoid arthritis Rheumatoid arthritis location: unspecified site Rheumatoid factor presence: unspecified presence Qualified Code(s): M06.9 - Rheumatoid arthritis, unspecified
[2021-07-18] MEDS: AMIODARONE / D5W 360 MG/200 ML BAG IV SCH ×3 (01:03→12:56)
[2021-07-18 05:59] LABS: BUN Creatinine Ratio 75.1 (10-20); Calcium 7.9 mg/dl (8.5-10.1); Creatinine Clr Calc Pharmacy 131.6 ml/min
[2021-07-18] MEDS: FERROUS SULFATE 325 MG TAB PO SCH ×2 (07:29→16:50)
[2021-07-18] MEDS: traMADol HCL 50 MG TABLET PO PRN ×2 (07:29→21:33)
[2021-07-18] MEDS: lisinopril 5 MG TAB PO SCH (08:44)
[2021-07-18] MEDS: BACLOFEN 10 MG TAB PO SCH ×3 (08:44→21:37)
[2021-07-18] MEDS: rOPINIRole HCL 1 MG TABLET PO SCH ×2 (08:45→21:39)
[2021-07-18] MEDS: APIXABAN 5 MG TABLET PO SCH ×2 (08:46→21:36)
[2021-07-18] MEDS: ASCORBIC ACID 500 MG TAB PO SCH ×2 (08:46→21:36)
[2021-07-18] MEDS: THIAMINE HCL 200 MG in SODIUM CHLORIDE 0.9% 50 ML IV SCH ×2 (08:47→21:47)
[2021-07-18] MEDS: METOPROLOL SUCC 50MG EXT REL TAB PO SCH (08:49)
[2021-07-18] MEDS: CEROVITE ADV FORMULA TAB PO SCH (08:49)
[2021-07-18] MEDS: ZINC SULFATE 220 MG CAPSULE PO SCH (08:50)
[2021-07-18] MEDS: FOLIC ACID 1 MG TAB PO SCH (08:50)
[2021-07-18] MEDS: SENNA 8.6 MG TAB PO SCH (08:50)
[2021-07-18] MEDS: POLYETHYLENE (MIRALAX) 17 GM PACK PO SCH (08:57)
[2021-07-18] MEDS: predniSONE 10 MG TABLET PO SCH (08:58)
--- NOTE | 2021-07-18 21:21 | Hospitalist Progress Note ---
Date of Service July 18, 2021 Assessment & Plan (1) Ventricular tachycardia: Plan: IMPROVING on amiodarone infusion appreciate cardiology assistance cont BB digoxin has been d/c if bradycardia from amio occurs consider reduction of metoprolol dose (is on 200mg daily) likely over to oral amio tomorrow VT likely due to cardiomyopathy (2) Acute on chronic combined systolic (congestive) and diastolic (congestive) heart failure: Plan: appears compensated O2 requirement - etiology?? ILD from "rheumatoid lung"? pulm HTN? other? cont BB resume lisinopril 5mg daily diuretics on hold right now (3) Altered mental status: Plan: resolved seems that MS is at baseline (4) Open wound of heel: Plan: L heel. Pressure ulcer due to severe contractures & bedbound status. Recent culture with pseudomonas (pansensitive) and MRSA. s/p 7 day course of appropriate Rx for each. Now off antibiotics. Recent MRI with no obvious osteomyelitis. Seen by Dr Saba, orthopedics - wound care advised. Nursing attempted waffle boots earlier this week but unable due to contractures. cont local wound care. (5) Acute respiratory failure with hypoxia: Plan: 2nd acute/chronic CHF. Possible small subsegmental RUL PE on recent CTA unlikely to be playing much of a role. Has been aggressively diuresed throughout his stay. On eliquis for a.fib/PEs. remains on NC O2 - attempt to wean. see #2 above re: the o2 requirement. (6) Afib: Plan: permanent. Remains on metoprolol succinate 200mg PO daily. Dig stopped. Now on amio - see #1 above. Continue Eliquis and telemetry. (7) Pleural effusion: Plan: Secondary to CHF, severe hypoalbuminemia, etc. O2 sats stable recent TSH in May wnl. creatinine wnl. no liver disease. 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 Dr Hassan saw earlier in June -- poor surgical candidate. Would need surgical repair at tertiary care care. Uncertain, given his numerous comorbidities and bed-bound status, if surgery would even be an option for him. Cont soft collar with transfers and movements - if he will comply (most days he will not wear). 07/[address] unchanged from prior imaging. Is the c-spine fracture with canal compromise the cause of his chronic contractures and acquired paraplegia?? (he is nearly a partial quad with arm dysfunction as well) (9) Bacteremia: Plan: MSSA bacteremia - s/p 6 weeks of Rx with ancef IV (to cover for possibility of SBE). completed his abx course. PICC is out. (10) Joint contracture of left lower leg: Plan: Cause of contractures/hypertonicity?? c-spine C2 fracture? cont baclofen - increase to TID dosing. (11) Hypoalbuminemia: Plan: Has seen middle school history teacher. Cont protein/diet supplements. Added MVI, vit C, zinc. Increased thiamine dose to 200mg BID has he has lab-confirmed deficiency. I noticed that "gluten" is on his allergy list but I can't find a dx of celiac. Regardless changed regular diet to gluten-free. no diarrhea at this time. (12) Restless leg syndrome: Plan: Continue ropinirole 2 PO BID (13) Anemia: Plan: Recent trans-sat was <20%. Overall his iron studies are most c/w anemia of chronic disease with element of Fe deficiency as well. H/H stable for numerous days in a row without any overt GI bleeding. Heme neg stool. Venofer 300mg daily x 3 days on 06/22, 06/23, and 06/24. 200mg also given on 07/03. most recent h/h acceptable. (14) Rheumatoid arthritis: Plan: Takes etanercept chronically. Last dose uncertain. He would need to get his dose from [facility] in order to give it. I checked with our pharmacy and he has NOT received any Enbrel over his last few hospital stays. Started prednisone 40mg daily on 07/15 for active RA. Synovitis and joints improved with such. Cont 30mg for 1 week, then taper after that. Follows w/ rheum in [place]. Could he have rheumatoid lung? (15) Hypomagnesemia: Plan: resolved (16) Severe protein-calorie malnutrition: Plan: see hypoalbuminemia above see #10 above (17) DVT prophylaxis: Plan: Continue Eliquis (18) Paraplegia: Plan: 2nd to c-spine fracture?? uncertain, but I am suspicious it is contributing to his bed-bound, partial quad status I have no other reason for his current state (19) Discharge planning issues: Plan: Appreciate palliative care consultation. Patient wants full code and all measures taken for his health. Insight seems very poor, however, and I don't think he understands the complexities of his current health status. Has POLST on file indicating full code, all measures, etc. Appreciate palliative care consultation. He has no family to contact to give update to. social work heavily involved in his complex care. he will return to [facility] at discharge. Admission and Anticipated Discharge Date Admission Date: June 20, 2021 Subjective per staff uneventful day had a few runs of NSVT this am but later in the day has been a.fib only amio drip now 0.5mg/min patient resting during my visit no new complaints except c/o "my arms" but joints feeling better Review of Systems Review of Systems: gen - fatigue, mild anorexia CV - no chest pain Pulm - no dyspnea today GI - no pain Physical Exam Physical Exam: Gen: chronically ill appearing, awake and alert, oriented Mouth: MM still dry, no thrush Neck - no JVD heart - irregular, s1 s2, no murmur Lungs - minimal rales bases b/l Abd: soft, BS+, NT, ND, no HSM Neuro: severe contractures / hypertonicity x 4 extremities; arms modestly better than earlier in the week Ext: trace edema b/l legs; pulses 2+ b/l; b/l arms with improving edema Musculo: synovitis of multiple small joints of hands and wrists cont to improve Results & Data Results & Data ([facility]) Vital Signs (Past 12 Hours) Vital Signs Temp Pulse Resp BP Pulse Ox 07/18/21 17:00 77 07/18/21 16:27 62 13 151/63 H 95 07/18/21 16:00 36.7 C 69 07/18/21 15:27 66 12 124/59 L 95 07/18/21 12:27 69 17 114/61 95 07/18/21 12:00 36.7 C Laboratory Results Laboratory Results - last 24 hr 07/18/21 04:57 Sodium 134 L Potassium 4.0 Chloride 102 Carbon Dioxide 31 Anion Gap 1.0 L BUN 43 H Creatinine 0.57 L Est Cr Clr Drug Dosing 131.6 Est GFR ( Amer) 124.0 Est GFR (Non-Af Amer) 107.0 BUN/Creatinine Ratio 75.1 H Glucose 111 H Calcium 7.9 L PG Care Time/CCT Total # of Minutes Spent Total Time Spent with Patient: Total time spent is greater than 50% in coordination of care (as documented) at patient's floor/unit and/or counseling patient: Coding Level of Care Code 14936 Subseq Hosp Care Lvl 2 Diagnoses Ventricular tachycardia I47.2 Acute on chronic combined systolic (congestive) and diastolic (congestive) heart failure I50.43 Altered mental status R41.82 Open wound of heel S91.309A Acute respiratory failure with hypoxia J96.01 Afib I48.91 Pleural effusion J90 Cervical spine fracture S12.9XXA Bacteremia R78.81 Joint contracture of left lower leg M24.562 Hypoalbuminemia E88.09 Restless leg syndrome G25.81 Anemia D64.9 Rheumatoid arthritis M06.9 Rheumatoid arthritis location: unspecified site Rheumatoid factor presence: unspecified presence Hypomagnesemia E83.42 Severe protein-calorie malnutrition E43 DVT prophylaxis Z29.9 Paraplegia G82.20 Discharge planning issues Z02.9 (1) Rheumatoid arthritis Rheumatoid arthritis location: unspecified site Rheumatoid factor presence: unspecified presence Qualified Code(s): M06.9 - Rheumatoid arthritis, unspecified
[2021-07-18] MEDS: ATORVASTATIN 40 MG TAB PO SCH (21:36)
[2021-07-19] MEDS: AMIODARONE / D5W 360 MG/200 ML BAG IV SCH ×2 (00:55→09:25)
[2021-07-19] MEDS: METOPROLOL SUCC 50MG EXT REL TAB PO SCH (08:02)
[2021-07-19] MEDS: FOLIC ACID 1 MG TAB PO SCH (08:02)
[2021-07-19] MEDS: ZINC SULFATE 220 MG CAPSULE PO SCH (08:02)
[2021-07-19] MEDS: ASCORBIC ACID 500 MG TAB PO SCH ×2 (08:02→20:32)
[2021-07-19] MEDS: SENNA 8.6 MG TAB PO SCH (08:02)
[2021-07-19] MEDS: FERROUS SULFATE 325 MG TAB PO SCH ×2 (08:02→18:34)
[2021-07-19] MEDS: CEROVITE ADV FORMULA TAB PO SCH (08:02)
[2021-07-19] MEDS: BACLOFEN 10 MG TAB PO SCH ×3 (08:02→20:33)
[2021-07-19] MEDS: APIXABAN 5 MG TABLET PO SCH ×2 (08:03→20:32)
[2021-07-19] MEDS: lisinopril 5 MG TAB PO SCH (08:03)
[2021-07-19] MEDS: predniSONE 10 MG TABLET PO SCH (08:03)
[2021-07-19] MEDS: rOPINIRole HCL 1 MG TABLET PO SCH ×2 (08:03→20:33)
[2021-07-19] MEDS: POLYETHYLENE (MIRALAX) 17 GM PACK PO SCH (08:07)
[2021-07-19] MEDS: THIAMINE HCL 200 MG in SODIUM CHLORIDE 0.9% 50 ML IV SCH ×2 (08:11→20:48)
[2021-07-19] MEDS ORDERED: AMIODARONE 200 MG TAB PO ONE (10:00)
--- NOTE | 2021-07-19 13:05 | Cardiology Progress Note ---
Date of Service July 19, 2021 Assessment & Plan (1) Acute on chronic combined systolic (congestive) and diastolic (congestive) heart failure: Plan: -well compensated at this time. -diuretics p.r.n.. (2) Afib: Plan: -rate adequately controlled on metoprolol succinate and amiodarone. -tolerating Eliquis without difficulty. (3) Pericardial effusion: Plan: -follow-up echocardiogram noted a smaller effusion. -we will recheck an echocardiogram as an outpatient. (4) Cardiomyopathy: Plan: -borderline left ventricular dysfunction with ejection fraction 45-50%. -essentially unchanged from May 2021 -continue metoprolol succinate and lisinopril. (5) Ventricular tachycardia: Plan: -would change amiodarone to 200 mg p.o. b.i.d. -Dr. Marquez does not feel he is a good candidate for a device. Admission and Anticipated Discharge Date Admission Date: June 20, 2021 Subjective The patient is resting comfortably in bed without complaints chest pain, dyspnea, or palpitations. Physical Exam Physical Exam: In general this is a well-developed well-nourished white male in no acute distress. HEENT exam is negative. Neck is supple with full carotid upstrokes. No obvious bruits. No JVD. No thyromegaly. Cardiovascular exam reveals an irregular regular rhythm with distant heart sounds. No obvious mur murs. Lungs note decreased breath sounds at the bases but no rales, rhonchi or wheezes. Abdomen is soft and nontender without bruits. Extremities reveal intact radial artery pulses bilaterally. There is 1+ edema of the upper extremities. Results & Data ([facility]) Vital Signs (Past 12 Hours) Vital Signs Temp Pulse Resp BP Pulse Ox 07/19/21 05:03 70 20 139/84 97 07/19/21 04:50 36.5 C 07/19/21 04:03 63 25 H 150/72 H 07/19/21 03:03 68 19 147/61 H 07/19/21 02:03 65 15 130/67 07/19/21 01:13 36.5 C 07/19/21 01:03 83 25 H 133/81 95 Diagnostic Findings air sampling and monitoring notes infrequent episodes of nonsustained ventricular tachycardia. PG Care Time/CCT Total # of Minutes Spent Total Time Spent with Patient: Total time spent is greater than 50% in coordination of care (as documented) at patient's floor/unit and/or counseling patient: Coding Level of Care Code 70094 Subseq Hosp Care Lvl 3 Diagnoses Acute on chronic combined systolic (congestive) and diastolic (congestive) heart failure I50.43 Afib I48.91 Pericardial effusion I31.3 Cardiomyopathy I42.9 Ventricular tachycardia I47.2
[2021-07-19] MEDS: AMIODARONE 200 MG TAB PO SCH (18:34)
[2021-07-19] MEDS: ATORVASTATIN 40 MG TAB PO SCH (20:31)
--- NOTE | 2021-07-19 23:30 | Hospitalist Progress Note ---
Date of Service July 19, 2021 Assessment & Plan (1) Ventricular tachycardia: Plan: significant improvement on amiodarone infusion amio drip d/c today; converted to PO amiodarone 200mg BID appreciate cardiology assistance cont BB digoxin has been d/c VT likely due to cardiomyopathy (2) Acute on chronic combined systolic (congestive) and diastolic (congestive) heart failure: Plan: appears compensated O2 requirement - etiology?? ILD from "rheumatoid lung"? pulm HTN? other? cont BB cont lisinopril 5mg daily diuretics on hold (3) Altered mental status: Plan: resolved (4) Open wound of heel: Plan: L heel. Pressure ulcer due to severe contractures & bedbound status. Recent culture with pseudomonas (pansensitive) and MRSA. s/p 7 day course of abx for each pathogen earlier this stay. Recent MRI with no obvious osteomyelitis. Seen by Dr Saba, orthopedics - wound care advised. Nursing attempted waffle boots earlier this week but unable due to contractures. cont local wound care. (5) Acute respiratory failure with hypoxia: Plan: 2nd acute/chronic CHF. Possible small subsegmental RUL PE on recent CTA unlikely to be playing much of a role. Has been aggressively diuresed throughout his stay. On eliquis for a.fib/PEs. remains on NC O2 - attempt to wean. see #2 above re: the o2 requirement. (6) Afib: Plan: permanent. Remains on metoprolol succinate 200mg PO daily. Dig stopped. Is on amiodarone - mainly for VT, but amio may cause some rate reduction. Continue Eliquis and telemetry. (7) Pleural effusion: Plan: Secondary to CHF, severe hypoalbuminemia, etc. O2 sats stable recent TSH in May wnl. creatinine wnl. no liver disease. 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 Dr Hassan saw earlier in June -- poor surgical candidate. Would need surgical repair at tertiary care care. Uncertain, given his numerous comorbidities and bed-bound status, if surgery would even be an option for him. Cont soft collar with transfers and movements - if he will comply (most days he will not wear). 07/[address] unchanged from prior imaging. Is the c-spine fracture with canal compromise the cause of his chronic contractures and acquired paraplegia?? (he is nearly a partial quad with arm dysfunction as well) (9) Bacteremia: Plan: MSSA bacteremia - s/p 6 weeks of Rx with ancef IV (to cover for possibility of SBE). completed the course earlier in the stay. (10) Joint contracture of left lower leg: Plan: Cause of contractures/hypertonicity?? c-spine C2 fracture? cont baclofen - adjust dosing to 5mg am, 5mg afternoon, 10mg HS. (11) Hypoalbuminemia: Plan: Has seen rn compliance. Cont protein/diet supplements. Added MVI, vit C, zinc. Increased thiamine dose to 200mg BID has he has lab-confirmed deficiency. diet changed to gluten-free. (12) Restless leg syndrome: Plan: Continue ropinirole 2 PO BID (13) Anemia: Plan: Recent trans-sat was <20%. Overall his iron studies are most c/w anemia of chronic disease with element of Fe deficiency as well. H/H stable for numerous days in a row without any overt GI bleeding. Heme neg stool. Venofer 300mg daily x 3 days on 06/22, 06/23, and 06/24. 200mg also given on 07/03. most recent h/h acceptable. (14) Rheumatoid arthritis: Plan: Takes etanercept chronically. Last dose uncertain. He would need to get his dose from [facility] in order to give it. I checked with our pharmacy and he has NOT received any Enbrel over his last few hospital stays. Started prednisone 40mg daily on 07/15 for active RA. Synovitis and joints improved with such. Cont 30mg for 1 week, then taper after that. day #2 of 7 of 30mg. Follows w/ rheum in [place]. Could he have rheumatoid lung? (15) Hypomagnesemia: Plan: resolved (16) Severe protein-calorie malnutrition: Plan: see hypoalbuminemia above see #10 above (17) DVT prophylaxis: Plan: Continue Eliquis (18) Paraplegia: Plan: 2nd to c-spine fracture?? uncertain, but I am suspicious it is contributing to his bed-bound, partial quad status I have no other reason for his current state (19) Discharge planning issues: Plan: Appreciate palliative care consultation that was performed earlier this week. Patient wants full code and all measures taken for his health. Insight very poor, however, and I don't think he understands the complexities of his current health status. Has POLST on file indicating full code, all measures, etc. He has no family to contact to give update to. social work heavily involved in his complex care. he will return to [facility] at discharge under a court order via the Office of Aging. (patient often asks to return to an apartment post-d/c which is simply not possible given his current status; he cannot care for himself) Admission and Anticipated Discharge Date Admission Date: June 20, 2021 Subjective pt c/o inability to sleep at night-time he denies any other new complaints as on previous visits he c/o dyspnea at rest staff report that he frequently c/o simply feeling uncomfortable and requiring repositioning joints - especially his hands and other upper body regions - are improved this week w/ prednisone tele today - occasional run of VT this am, none later in the day he asks to get into the wheelchair tomorrow Review of Systems Review of Systems: gen - fatigue, weakness CV - no chest pain pulm - no cough GI - no abd pain or vomiting staff report decent appetite Physical Exam Physical Exam: Gen: chronically ill appearing, awake and alert, oriented Mouth: MM dry, lips dry Neck - no JVD heart - irregular, s1 s2, no murmur Lungs - mild rales bases b/l Abd: soft, BS+, NT, ND, no HSM Neuro: severe contractures / hypertonicity x 4 extremities; arm range of motion improved this week Ext: trace edema b/l legs; pulses 2+ b/l Musculo: synovitis of multiple small joints of hands and wrists cont to improve; crepitus b/l knees with passive ROM Results & Data Results & Data ([facility]) Vital Signs (Past 12 Hours) Vital Signs Temp Pulse Pulse Resp BP BP Pulse Ox 07/19/21 23:29 36.5 C 68 23 159/82 H 99 07/19/21 19:39 36.6 C 07/19/21 19:32 63 24 134/72 96 07/19/21 16:03 66 25 H 159/76 H 07/19/21 16:00 36.3 C L 66 07/19/21 12:03 55 L 24 157/77 H PG Care Time/CCT Total # of Minutes Spent Total Time Spent with Patient: Total time spent is greater than 50% in coordination of care (as documented) at patient's floor/unit and/or counseling patient: Coding Level of Care Code 66121 Subseq Hosp Care Lvl 2 Diagnoses Ventricular tachycardia I47.2 Acute on chronic combined systolic (congestive) and diastolic (congestive) heart failure I50.43 Altered mental status R41.82 Open wound of heel S91.309A Acute respiratory failure with hypoxia J96.01 Afib I48.91 Pleural effusion J90 Cervical spine fracture S12.9XXA Bacteremia R78.81 Joint contracture of left lower leg M24.562 Hypoalbuminemia E88.09 Restless leg syndrome G25.81 Anemia D64.9 Rheumatoid arthritis M06.9 Rheumatoid arthritis location: unspecified site Rheumatoid factor presence: unspecified presence Hypomagnesemia E83.42 Severe protein-calorie malnutrition E43 DVT prophylaxis Z29.9 Paraplegia G82.20 Discharge planning issues Z02.9 (1) Rheumatoid arthritis Rheumatoid arthritis location: unspecified site Rheumatoid factor presence: unspecified presence Qualified Code(s): M06.9 - Rheumatoid arthritis, unspecified
[2021-07-20 06:12] LABS: Hematocrit (blood only) 30.4 % (42-52); Hemoglobin 9.2 g/dL (14.0-18.0); Mean Corpuscular Hemoglobin 25.1 pg (25-34); Mean Corpuscular Hgb Conc 30.3 g/dL (32-36); Mean Corpuscular Volume 83.1 fL (80-100); Mean Platelet Volume 9.1 fL (7.4-10.4); Platelet Count 430 K/uL (130-400); RDW Coefficient of Variation 19.9 % (11.5-14.5); Red Blood Count 3.66 M/uL (4.7-6.1); White Blood Count 7.74 K/uL (4.8-10.8)
[2021-07-20 06:36] LABS: BUN Creatinine Ratio 72.9 (10-20); Calcium 7.8 mg/dl (8.5-10.1); Est GFR (African American) 124.9 ml/min; Est GFR (Non-African American) 107.8 ml/min; Potassium 3.7 mmol/L (3.5-5.1)
[2021-07-20] MEDS: ASCORBIC ACID 500 MG TAB PO SCH ×2 (08:41→21:22)
[2021-07-20] MEDS: predniSONE 10 MG TABLET PO SCH (08:41)
[2021-07-20] MEDS: SENNA 8.6 MG TAB PO SCH (08:42)
[2021-07-20] MEDS: ZINC SULFATE 220 MG CAPSULE PO SCH (08:42)
[2021-07-20] MEDS: METOPROLOL SUCC 50MG EXT REL TAB PO SCH (08:42)
[2021-07-20] MEDS: FERROUS SULFATE 325 MG TAB PO SCH ×2 (08:42→17:30)
[2021-07-20] MEDS: lisinopril 5 MG TAB PO SCH (08:42)
[2021-07-20] MEDS: FOLIC ACID 1 MG TAB PO SCH (08:42)
[2021-07-20] MEDS: APIXABAN 5 MG TABLET PO SCH ×2 (08:42→21:22)
[2021-07-20] MEDS: BACLOFEN 10 MG TAB PO SCH ×3 (08:43→21:22)
[2021-07-20] MEDS: CEROVITE ADV FORMULA TAB PO SCH (08:43)
[2021-07-20] MEDS: AMIODARONE 200 MG TAB PO SCH ×2 (08:44→17:29)
[2021-07-20] MEDS: rOPINIRole HCL 1 MG TABLET PO SCH ×2 (08:45→21:21)
[2021-07-20] MEDS: THIAMINE HCL 200 MG in SODIUM CHLORIDE 0.9% 50 ML IV SCH ×2 (08:48→21:21)
[2021-07-20] MEDS: POLYETHYLENE (MIRALAX) 17 GM PACK PO SCH (08:48)
[2021-07-20] MEDS: traMADol HCL 50 MG TABLET PO PRN (09:16)
--- NOTE | 2021-07-20 20:49 | Hospitalist Progress Note ---
Date of Service July 20, 2021 Assessment & Plan (1) Ventricular tachycardia: Plan: significant improvement on amiodarone infusion drip stopped 07/19 - converted to PO amiodarone 200mg BID at that time appreciate cardiology assistance cont BB digoxin has been d/c VT likely due to cardiomyopathy K and Mag have been wnl (2) Acute on chronic combined systolic (congestive) and diastolic (congestive) heart failure: Plan: appears compensated O2 requirement - etiology?? ILD from "rheumatoid lung"? pulm HTN? other? cont BB cont lisinopril 5mg daily diuretics on hold fluid balance has been even (3) Altered mental status: Plan: resolved (4) Open wound of heel: Plan: L heel. Pressure ulcer due to severe contractures & bedbound status. Wound care following. Recent culture with pseudomonas (pansensitive) and MRSA. s/p 7 day course of abx for each pathogen earlier this stay. Recent MRI with no obvious osteomyelitis. Seen by Dr Saba, orthopedics - ongoing wound care advised. Nursing attempted waffle boots earlier this week but unable due to contractures. cont local wound care. (5) Acute respiratory failure with hypoxia: Plan: 2nd acute/chronic CHF. Possible small subsegmental RUL PE on recent CTA unlikely to be playing much of a role. Has been aggressively diuresed throughout his stay and O2 sats have been stable for several days. On eliquis for a.fib/PEs. remains on NC O2 - attempt to wean. see #2 above re: the o2 requirement. (6) Afib: Plan: permanent. Remains on metoprolol succinate 200mg PO daily. Dig stopped. Is on amiodarone - mainly for VT, but amio may cause some rate reduction as well. Continue Eliquis and telemetry. (7) Pleural effusion: Plan: Secondary to CHF, severe hypoalbuminemia, etc. O2 sats stable recent TSH in May wnl. creatinine wnl. no liver disease. 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 Dr Hassan saw earlier in June -- poor surgical candidate. Would need surgical repair at tertiary care care. Uncertain, given his numerous comorbidities and bed-bound status, if surgery would even be an option for him. Cont soft collar with transfers and movements - if he will comply (most days he will not wear). 07/[address] unchanged from prior imaging. Is the c-spine fracture with canal compromise the cause of his chronic contractures and acquired paraplegia?? (he is nearly a partial quad with arm dysfunction as well) (9) Bacteremia: Plan: MSSA bacteremia - s/p 6 weeks of Rx with ancef IV (to cover for possibility of SBE as echo was neg for vegetations but high suspicion for SBE). completed the course earlier in the stay. (10) Joint contracture of left lower leg: Plan: Cause of contractures/hypertonicity?? c-spine C2 fracture? cont baclofen - adjusted dosing to 5mg am, 5mg afternoon, 10mg HS. tolerating this so far. (11) Hypoalbuminemia: Plan: Has seen production counter. Cont protein/diet supplements. Added MVI, vit C, zinc. Increased thiamine dose to 200mg BID has he has lab-confirmed deficiency. diet changed to gluten-free. his appetite has improved this week. (12) Restless leg syndrome: Plan: Continue ropinirole 2 PO BID (13) Anemia: Plan: Recent trans-sat was <20%. Overall his iron studies are most c/w anemia of chronic disease with element of Fe deficiency as well. H/H stable for numerous days in a row without any overt GI bleeding. Heme neg stool. Venofer 300mg daily x 3 days on 06/22, 06/23, and 06/24. 200mg also given on 07/03. H/H remain acceptable. (14) Rheumatoid arthritis: Plan: Takes etanercept chronically. Last dose uncertain. He would need to get his dose from [facility] in order to give it. I checked with our pharmacy and he has NOT received any Enbrel over his last few hospital stays. Started prednisone 40mg daily on 07/15 for active RA. Synovitis and joints improved with such. Cont 30mg for 1 week, then taper after that. day #3 of 7 of 30mg. Follows w/ rheum in [place]. Could he have rheumatoid lung? consider high-res CT at some point. (15) Hypomagnesemia: Plan: resolved (16) Severe protein-calorie malnutrition: Plan: see hypoalbuminemia above see #10 above (17) DVT prophylaxis: Plan: Continue Eliquis (18) Paraplegia: Plan: acquired. 2nd to c-spine fracture?? uncertain, but I am suspicious it is contributing to his bed-bound, partial quad status I have no other reason for his current state (19) Discharge planning issues: Plan: Appreciate palliative care consultation that was performed earlier this week. Patient wants full code and all measures taken for his health. Insight very poor, however, and I don't think he understands the complexities of his current health status. Has POLST on file indicating full code, all measures, etc. He has no family to contact to give update to. social work heavily involved in his complex care. he will return to [facility] at discharge under a court order via the Office of Aging. (patient often asks to return to an apartment post-d/c which is simply not possible given his current status; he cannot care for himself) Admission and Anticipated Discharge Date Admission Date: June 20, 2021 Subjective no events overnight infrequent runs of NSVT no symptoms from such got from bed to chair with use of [employer] lift eating fair-good per staff he asks about his sacral decub and states "you might have the wrong antibiotic" this led to a discussion about what he meant and what his concerns were (I spoke with nursing - he does have sacral decub being followed by the Wound Care Team) Review of Systems Review of Systems: gen - c/o baseline fatigue; appetite has improved this week; no fevers CV - no chest pain or palpitations Pulm - intermittent dyspnea but no cough GI - no abd pain, nausea or emesis Physical Exam Physical Exam: Gen: chronically ill appearing, awake and alert, oriented; sitt ing in chair - looks overall the best he has looked all week Mouth: MM always dry Neck - no JVD heart - irregular, s1 s2, no murmur Lungs - mild rales L base otherwise CTA b/l Abd: soft, BS+, NT, ND, no HSM Neuro: severe contractures / hypertonicity x 4 extremities; arm range of motion improved this week Ext: trace edema b/l legs; pulses 2+ b/l Musculo: minimal synovitis of multiple small joints of hands and wrists cont to improve; left knee with mildly warm joint effusion but no tenderness to palpation or redness Results & Data Results & Data ([facility]) Vital Signs (Past 12 Hours) Vital Signs Temp Pulse Pulse Resp BP BP Pulse Ox 07/20/21 19:26 36.5 C 63 21 136/68 98 07/20/21 16:00 63 07/20/21 15:50 63 17 139/77 94 07/20/21 14:01 36.5 C 07/20/21 13:02 72 24 162/116 H 07/20/21 10:49 121 H 16 127/82 97 07/20/21 09:16 78 24 133/80 97 Laboratory Results Laboratory Results - last 24 hr 07/20/21 07/20/21 05:45 05:45 WBC 7.74 RBC 3.66 L Hgb 9.2 L Hct 30.4 L MCV 83.1 MCH 25.1 MCHC 30.3 L RDW Std Deviation 59.0 H RDW Coeff of Jayjay 19.9 H Plt Count 430 H MPV 9.1 Sodium 138 Potassium 3.7 Chloride 103 Carbon Dioxide 28 Anion Gap 7.0 BUN 41 H Creatinine 0.56 L Est Cr Clr Drug Dosing 134.0 Est GFR ( Amer) 124.9 Est GFR (Non-Af Amer) 107.8 BUN/Creatinine Ratio 72.9 H Glucose 97 Calcium 7.8 L PG Care Time/CCT Total # of Minutes Spent Total Time Spent with Patient: Total time spent is greater than 50% in coordination of care (as documented) at patient's floor/unit and/or counseling patient: Coding Level of Care Code 80865 Subseq Hosp Care Lvl 2 Diagnoses Ventricular tachycardia I47.2 Acute on chronic combined systolic (congestive) and diastolic (congestive) heart failure I50.43 Altered mental status R41.82 Open wound of heel S91.309A Acute respiratory failure with hypoxia J96.01 Afib I48.91 Pleural effusion J90 Cervical spine fracture S12.9XXA Bacteremia R78.81 Joint contracture of left lower leg M24.562 Hypoalbuminemia E88.09 Restless leg syndrome G25.81 Anemia D64.9 Rheumatoid arthritis M06.9 Rheumatoid arthritis location: unspecified site Rheumatoid factor presence: unspecified presence Hypomagnesemia E83.42 Severe protein-calorie malnutrition E43 DVT prophylaxis Z29.9 Paraplegia G82.20 Discharge planning issues Z02.9 (1) Rheumatoid arthritis Rheumatoid arthritis location: unspecified site Rheumatoid factor presence: unspecified presence Qualified Code(s): M06.9 - Rheumatoid arthritis, unspecified
[2021-07-21] MEDS: ZINC SULFATE 220 MG CAPSULE PO SCH (08:13)
[2021-07-21] MEDS: APIXABAN 5 MG TABLET PO SCH ×2 (08:13→21:13)
[2021-07-21] MEDS: BACLOFEN 10 MG TAB PO SCH ×3 (08:13→21:14)
[2021-07-21] MEDS: METOPROLOL SUCC 50MG EXT REL TAB PO SCH (08:13)
[2021-07-21] MEDS: ASCORBIC ACID 500 MG TAB PO SCH ×2 (08:13→21:13)
[2021-07-21] MEDS: FERROUS SULFATE 325 MG TAB PO SCH ×2 (08:14→17:26)
[2021-07-21] MEDS: AMIODARONE 200 MG TAB PO SCH ×2 (08:14→17:26)
[2021-07-21] MEDS: CEROVITE ADV FORMULA TAB PO SCH (08:15)
[2021-07-21] MEDS: FOLIC ACID 1 MG TAB PO SCH (08:15)
[2021-07-21] MEDS: lisinopril 5 MG TAB PO SCH (08:15)
[2021-07-21] MEDS: rOPINIRole HCL 1 MG TABLET PO SCH ×2 (08:16→21:13)
[2021-07-21] MEDS: SENNA 8.6 MG TAB PO SCH (08:16)
[2021-07-21] MEDS: POLYETHYLENE (MIRALAX) 17 GM PACK PO SCH (08:18)
[2021-07-21] MEDS: THIAMINE HCL 200 MG in SODIUM CHLORIDE 0.9% 50 ML IV SCH ×2 (08:18→21:14)
[2021-07-21] MEDS: traMADol HCL 50 MG TABLET PO PRN (08:22)
[2021-07-21] MEDS: predniSONE 10 MG TABLET PO SCH (09:08)
--- NOTE | 2021-07-21 21:52 | Hospitalist Progress Note ---
Date of Service July 21, 2021 Assessment & Plan (1) Ventricular tachycardia: Plan: significant improvement on amiodarone infusion with ultimate conversion to PO amio BID on 07/19/21 however, over last 1-2 days, his VT runs have increased in frequency will inform cardiology about this -- increase needed in oral amio dosing?? cont BB digoxin has been d/c VT likely due to cardiomyopathy K and Mag have been wnl (2) Acute on chronic combined systolic (congestive) and diastolic (congestive) heart failure: Plan: compensated cont BB cont lisinopril 5mg daily diuretics on hold but likely should resume lasix tomorrow (would administer 20mg po daily to start) (3) Altered mental status: Plan: resolved (4) Open wound of heel: Plan: L heel. Pressure ulcer due to severe contractures & bedbound status. Wound care following. Recent culture with pseudomonas (pansensitive) and MRSA. s/p 7 day course of abx for each pathogen earlier this stay. Recent MRI with no obvious osteomyelitis. Seen by Dr Saba, orthopedics - ongoing wound care advised. Nursing attempted waffle boots earlier this week but unable due to contractures. cont local wound care. ulcer unchanged today on examination. (5) Acute respiratory failure with hypoxia: Plan: 2nd acute/chronic CHF. Possible small subsegmental RUL PE on recent CTA unlikely to be playing much of a role. Has been aggressively diuresed throughout his stay and O2 sats have been stable for several days. On eliquis for a.fib/PEs. remains on NC O2 - attempt to wean. does he have underlying rheumatoid lung/ILD from RA causing O2 requirement?? other? (6) Afib: Plan: permanent. Remains on metoprolol succinate 200mg PO daily. Dig stopped. Is on amiodarone - mainly for VT, but amio may cause some rate reduction as well. Continue Eliquis and telemetry. (7) Pleural effusion: Plan: stable. Secondary to CHF, severe hypoalbuminemia, etc. O2 sats stable recent TSH in May wnl. creatinine wnl. no liver disease. 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 Dr Hassan saw earlier in June -- poor surgical candidate. Would need surgical repair at tertiary care care. Uncertain, given his numerous comorbidities and bed-bound status, if surgery would even be an option for him. Ideally should be wearing a soft collar most times of the day but he declines. 07/[address] unchanged from prior imaging. Is the c-spine fracture with canal compromise the cause of his chronic contr actures and acquired paraplegia?? (he is nearly a partial quad with arm dysfunction as well) (9) Bacteremia: Plan: MSSA bacteremia - s/p 6 weeks of Rx with ancef IV (to cover for possibility of SBE as echo was neg for vegetations but high suspicion for SBE). completed the course earlier in the stay. (10) Joint contracture of left lower leg: Plan: Cause of contractures/hypertonicity?? c-spine C2 fracture? cont baclofen - adjusted dosing to 5mg am, 5mg afternoon, 10mg HS. tolerating this so far. 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 Cont protein/diet supplements. Cont MVI, vit C, zinc. Cont thiamine 200mg BID has he has lab-confirmed deficiency. diet changed to gluten-free as gluten is listed as "allergy." his appetite has improved this week. (12) Restless leg syndrome: Plan: Continue ropinirole 2 PO BID (13) Anemia: Plan: Recent trans-sat was <20%. Overall his iron studies are most c/w anemia of chronic disease with element of Fe deficiency as well. H/H stable for numerous days in a row without any overt GI bleeding. Heme neg stool. Venofer 300mg daily x 3 days on 06/22, 06/23, and 06/24. 200mg also given on 07/03. H/H remain acceptable. (14) Rheumatoid arthritis: Plan: Flare improving. Started prednisone 40mg daily on 07/15 for active RA. Synovitis and joints improved with such. Cont 30mg for 1 week, then taper after that. day #4 of 7 of 30mg. Takes etanercept chronically. Last dose uncertain. He would need to get his dose from [facility] in order to give it. I checked with our pharmacy and he has NOT received any Enbrel over his last few hospital stays. Given that he has no active infection at this time would be prudent to resume the enbrel. Takes weekly. Follows w/ rheum in [place]. Would refer to Dr Locke at [facility] after discharge since patient is now a resident at [facility]. Could he have rheumatoid lung? consider high-res CT at some point. (15) Hypomagnesemia: Plan: resolved (16) Severe protein-calorie malnutrition: Plan: see hypoalbuminemia above I asked the patient today if he has ever been told he has celiac disease. He wasn't sure. However, allergy list shows "gluten" as allergy. Check TTGs which will help determine if truly a celiac. (17) DVT prophylaxis: Plan: Continue Eliquis (18) Paraplegia: Plan: acquired. 2nd to c-spine fracture?? uncertain, but I am suspicious it is contributing to his bed-bound, partial quad status I have no other reason for his current state (19) Discharge planning issues: Plan: Appreciate palliative care consultation that was performed earlier this week. Patient wants full code and all measures taken for his health at this time. Insight very poor, however, and I don't think he understands the complexities of his current health status. Has POLST on file indicating full code, all measures, etc. Multiple times this week he had some paranoia and asked questions that were very bizarre and unrelated to his current hospital stay. He has no family to contact to give update to. social work heavily involved in his complex care. he will return to [facility] at discharge under a court order via the Office of Aging. (patient often asks to return to an apartment post-d/c which is simply not possible given his current status; he cannot care for himself) Admission and Anticipated Discharge Date Admission Date: June 20, 2021 Subjective patient without complaints during the visit while I was visiting with him he had a brief run of NSVT he was asymptomatic during the episode I reviewed his telemetry from overnight - still having frequent NSVT staff report good appetite no concerns per staff Review of Systems Review of Systems: gen - c/o being tired; eating is much better than earlier this week CV - no chest pain or palpitations pulm - no dyspnea (even during NSVT runs) GI - no abd pain or nausea musculo - joints feeling "ok" Physical Exam Physical Exam: Gen: chronically ill appearing, awake and alert, oriented; NAD Mouth: MM always dry Neck - no JVD heart - irregular, s1 s2, no murmur Lungs - mild rales L base otherwise CTA b/l Abd: soft, BS+, NT, ND, no HSM Neuro: severe contractures / hypertonicity x 4 extremities but improved ROM of all limbs today relative to earlier exams Ext: trace edema b/l legs; pulses 2+ b/l Musculo: minimal synovitis of multiple small joints of hands and wrists cont to improve Skin: left foot - 2mm in depth ulceration with minimal drainage; no odor, no cellulitis; evidence of skin injury/trauma to L 5th metatarsal (ecchymotic skin) Results & Data Results & Data ([facility]) Vital Signs (Past 12 Hours) Vital Signs Temp Pulse Resp BP Pulse Ox 07/21/21 20:00 36.7 C 72 20 157/81 H 07/21/21 17:39 76 147/75 H 07/21/21 16:01 36.9 C 69 26 H 171/90 H 98 07/21/21 11:24 36.5 C 73 16 136/93 98 PG Care Time/CCT Total # of Minutes Spent Total Time Spent with Patient: Total time spent is greater than 50% in coordination of care (as documented) at patient's floor/unit and/or counseling patient: Coding Level of Care Code 35136 Subseq Hosp Care Lvl 2 Diagnoses Ventricular tachycardia I47.2 Acute on chronic combined systolic (congestive) and diastolic (congestive) heart failure I50.43 Altered mental status R41.82 Open wound of heel S91.309A Acute respiratory failure with hypoxia J96.01 Afib I48.91 Pleural effusion J90 Cervical spine fracture S12.9XXA Bacteremia R78.81 Joint contracture of left lower leg M24.562 Hypoalbuminemia E88.09 Restless leg syndrome G25.81 Anemia D64.9 Rheumatoid arthritis M06.9 Rheumatoid arthritis location: unspecified site Rheumatoid factor presence: unspecified presence Hypomagnesemia E83.42 Severe protein-calorie malnutrition E43 DVT prophylaxis Z29.9 Paraplegia G82.20 Discharge planning issues Z02.9 (1) Rheumatoid arthritis Rheumatoid arthritis location: unspecified site Rheumatoid factor presence: unspecified presence Qualified Code(s): M06.9 - Rheumatoid arthritis, unspecified
[2021-07-22 05:18] LABS: BUN Creatinine Ratio 66.8 (10-20); Calcium 7.9 mg/dl (8.5-10.1); Creatinine Clr Calc Pharmacy 144.3 ml/min; Est GFR (African American) 128.8 ml/min; Est GFR (Non-African American) 111.1 ml/min; Magnesium 2.2 mg/dl (1.8-2.4)
--- NOTE | 2021-07-22 07:34 | Hospitalist Progress Note ---
Date of Service July 22, 2021 Assessment & Plan (1) Ventricular tachycardia: Plan: Ventricular tachycardia 2/2 cardiomyopathy Substantial V. tach burden overnight and over weekend on telemetry, discussed with cardiology. Will hold p.o. amiodarone, rebolus and drip x24 hours. He is not a candidate for cardiac ablation or ICD. - Continue metoprolol succinate 200mg PO daily. May decrease/hold if pulse/BP not tolerating - prior digoxcin d/sharmila - K goal 4.0, Mg 2.0 (2) Acute on chronic combined systolic (congestive) and diastolic (congestive) heart failure: Plan: -appears compensated - Unclear etiology of O2 requirement - Consider ILD from "rheumatoid lung", pulm HTN, high res CT for f/u - BB as above - Continue lisinopril 5mg daily - Fluid balance near euvolemic, potentially slightly positive today - (3) Altered mental status: Plan: resolved (4) Open wound of heel: Plan: - L heel. - Pressure ulcer due to severe contractures & bedbound status. - Wound care following. - Recent culture with pseudomonas (pansensitive) and MRSA. s/p 7 day course of abx for each pathogen earlier this stay. - Recent MRI with no obvious osteomyelitis. - Seen by Dr Saba, orthopedics - ongoing wound care advised. - Nursing attempted waffle boots earlier this week but unable due to contractures. - cont local wound care. (5) Acute respiratory failure with hypoxia: Plan: -2nd acute/chronic CHF. -Possible small subsegmental RUL PE on recent CTA unlikely to be clinically significant -Has been aggressively diuresed throughout his stay and O2 sats have been stable for several days. - Continue eliquis for a.fib/PEs. -remains on NC O2 - attempt to wean. (6) Afib: Plan: Permanent A. fib Rate control with metoprolol as noted otherwise Digoxin stopped as noted Amiodarone adjusted as noted for ventricular tachycardia Continue Eliquis Continue telemetry (7) Pleural effusion: Plan: -Secondary to CHF, severe hypoalbuminemia, etc. -O2 sats stable -recent TSH in May wnl. -creatinine wnl. -no liver disease. 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 -Recent MRI showed chronic nonunited type II odontoid fracture consistent with unstable fx and mild displacement of odontoid tip with central canal narrowing at C1 level, progressive marrow edema at C1-C2 levels, and cervical spinal stenosis and neuroforaminal stenosis -throughout the cervical spine. -Dr Hassan saw earlier in June -- poor surgical candidate.Would need surgical repair at tertiary care care. Uncertain, given his numerous comorbidities and bed-bound status, if surgery would even be an option for him. - Cont soft collar with transfers and movements - if he will comply (most days he will not wear). -07/06 c-spine CT unchanged from prior imaging. -Paraplegia/contracture differential includes C-spine fracture canal compromise (9) Bacteremia: Plan: -MSSA bacteremia - s/p 6 weeks of Rx with ancef IV (to cover for possibility of SBE as echo was neg for vegetations but high suspicion for SBE). completed the course earlier in the stay. (10) Joint contracture of left lower leg: Plan: Differential includes cervical stenosis/impingement Continue baclofen 5 mg a.m., 5 mg afternoon, 10 mg nightly (11) Hypoalbuminemia: Plan: Nutrition consulted Cont protein/diet supplements. Continue MVI, vit C, zinc. Continue high-dose thiamine 200 mg twice daily Gluten-free diet Appetite improving/improved (12) Restless leg syndrome: Plan: -Continue ropinirole 2 PO BID (13) Anemia: Plan: -Recent trans-sat was <20%. -Overall his iron studies are most c/w anemia of chronic disease with element of Fe deficiency as well. -H/H stable for numerous days in a row without any overt GI bleeding. Heme neg stool. - Venofer 300mg daily x 3 days on 06/22, 06/23, and 06/24. 200mg also given on 07/03. -CBC every 48 hours (14) Rheumatoid arthritis: Plan: -Takes etanercept chronically. -Last dose uncertain. -[facility] to bring over a dose 07/22. Will verify, may give 07/23 and call to have weekly dose brought at this time -Per pharmacy verification patient had NOT received any Enbrel over his last few hospital stays. -Started prednisone 40mg daily on 07/15 for active RA. Symptomatically improved, continue 30 mg dose until 07/26, followed by 20 mg x 1 week, followed by 10 mg for 1 week -Follows w/ rheum in [place]. Consider high-resolution CT scan for pulmonary involvement of rheumatoid (15) Hypomagnesemia: Plan: -resolved (16) Severe protein-calorie malnutrition: Plan: -see hypoalbuminemia above -Continue multivitamin, vitamin supplementation and encouraging diet. Diet overall improving May consider boost if needed Celiac labs pending (17) DVT prophylaxis: Plan: Continue Eliquis (18) Paraplegia: Plan: Acquired. Unclear etiology. Potentially related to C-spine fracture/spine compression, MRI spine shows Redemonstration of the chronic nonunited type II odontoid fracture. This is consistent with an unstable fracture. There remains mild anterior displacement of the odontoid tip resulting in moderate to severe central canal narrowing at the C1 level. No marrow edema identified within the cervical spinal cord at this time. Progressive marrow edema at the C1-C2 levels. This is nonspecific and could be due to the chronic instability. No definite acute fractures identified. -Case previously discussed with with ortho/spine spine, patient not a surgical candidate/poor surgical candidate (19) Discharge planning issues: Plan: -Appreciate palliative care consultation that was performed earlier this week. -Patient wants full code and all measures taken for his health. -Per prior provider Dr. Longoria experience "Insight very poor, however, and I don't think he understands the complexities of his current health status." Agree with this assessment. -Has POLST on file indicating full code, all measures, etc. -He has no family to contact to give update to. -social work heavily involved in his complex care. -he will return to [facility] at discharge under a court order via the Office of Aging. (patient often asks to return to an apartment post-d/c which is simply not possible given his current status; he cannot care for himself) Admission and Anticipated Discharge Date Admission Date: June 20, 2021 Elier Hernandez seen at the bedside this morning. He is sleeping, awakens to voice. He is oriented to his, year, month, and name. He reports he feels "okay, tired I was napping ". He reports that he knows he has been told that he has an unusual heart rhythm, reports he is not able to tell when this is happening and has not noticed any symptoms from it. He expresses no other concerns, declines other symptoms. Review of Systems Review of Systems: Constitutional: Complains of fatigue, reports he would like to take a nap. Appetite okay. Eyes: Denies vision change ENT: Denies ear pain, sore throat, sinus pain Cardiovascular: Denies Chest pain, chest pressure, palpitations, extremity swelling Respiratory: Denies shortness of breath, cough, sputum production, difficulty breathing Gastrointestinal: Denies abdominal pain, nausea, vomiting, constipation, diarrhea Musculoskeletal: Denies acute focal weakness, muscle aches/pain, joint aches/pain Integumentary:Denies acute rash, lesions, bruising Neurological: Denies headache, numbness, tingling, focal weakness Physical Exam Physical Exam: General: A&Ox3. NAD. Cooperative. HEENT: Atraumatic, normocephalic. Pupils equal and reactive to light and accommodation. Pulm: Bibasilar crackles, no overt rales symmetrical chest rise. No increase work of breathing. No respiratory distress. Cardiac: RRR, -mrg. Radial pulses intact and symmetrical. Abdominal: Nontender, nondistended, soft. BS present. Extremities: Extremities contracted to flexion position, hypertonic. 2+ edema bilaterally. PT pulse intact bilaterally. Wounds: Left foot 2 mm ulcer without overlying tenderness, warmth, discharge Results & Data Results & Data ([facility]) Vital Signs (Past 12 Hours) Vital Signs Temp Pulse Resp BP Pulse Ox 07/22/21 02:55 36.6 C 67 16 150/67 H 99 07/21/21 23:00 36.6 C 66 24 146/82 H 98 07/21/21 20:00 36.7 C 72 20 157/81 H PG Care Time/CCT Total # of Minutes Spent Total Time Spent with Patient: Total time spent is greater than 50% in coordination of care (as documented) at patient's floor/unit and/or counseling patient: Coding Level of Care Code 34752 Subseq Hosp Care Lvl 3 Diagnoses Ventricular tachycardia I47.2 Acute on chronic combined systolic (congestive) and diastolic (congestive) heart failure I50.43 Altered mental status R41.82 Open wound of heel S91.309A Acute respiratory failure with hypoxia J96.01 Afib I48.91 Pleural effusion J90 Cervical spine fracture S12.9XXA Bacteremia R78.81 Joint contracture of left lower leg M24.562 Hypoalbuminemia E88.09 Restless leg syndrome G25.81 Anemia D64.9 Rheumatoid arthritis M06.9 Rheumatoid arthritis location: unspecified site Rheumatoid factor presence: unspecified presence Hypomagnesemia E83.42 Severe protein-calorie malnutrition E43 DVT prophylaxis Z29.9 Paraplegia G82.20 Discharge planning issues Z02.9 (1) Rheumatoid arthritis Rheumatoid arthritis location: unspecified site Rheumatoid factor presence: unspecified presence Qualified Code(s): M06.9 - Rheumatoid arthritis, unspecified
[2021-07-22] MEDS: THIAMINE HCL 200 MG in SODIUM CHLORIDE 0.9% 50 ML IV SCH ×2 (08:28→21:13)
[2021-07-22] MEDS: BACLOFEN 10 MG TAB PO SCH ×3 (08:28→21:12)
[2021-07-22] MEDS: predniSONE 10 MG TABLET PO SCH (08:29)
[2021-07-22] MEDS: APIXABAN 5 MG TABLET PO SCH ×2 (08:29→20:52)
[2021-07-22] MEDS: FOLIC ACID 1 MG TAB PO SCH (08:29)
[2021-07-22] MEDS: CEROVITE ADV FORMULA TAB PO SCH (08:29)
[2021-07-22] MEDS: METOPROLOL SUCC 50MG EXT REL TAB PO SCH (08:29)
[2021-07-22] MEDS: ZINC SULFATE 220 MG CAPSULE PO SCH (08:29)
[2021-07-22] MEDS: ASCORBIC ACID 500 MG TAB PO SCH ×2 (08:29→20:51)
[2021-07-22] MEDS: rOPINIRole HCL 1 MG TABLET PO SCH ×2 (08:29→20:52)
[2021-07-22] MEDS: lisinopril 5 MG TAB PO SCH (08:29)
[2021-07-22] MEDS: SENNA 8.6 MG TAB PO SCH (08:29)
[2021-07-22] MEDS: AMIODARONE 200 MG TAB PO SCH (08:30)
[2021-07-22] MEDS: FERROUS SULFATE 325 MG TAB PO SCH ×2 (08:30→16:41)
[2021-07-22] MEDS: POLYETHYLENE (MIRALAX) 17 GM PACK PO SCH (09:41)
--- NOTE | 2021-07-22 12:31 | Cardiology Progress Note ---
Date of Service July 22, 2021 Assessment & Plan (1) Ventricular tachycardia: Plan: -frequency of ventricular tachycardia paroxysms has increased. -case discussed with Dr. Marquez. -we will reload with intravenous amiodarone. -not a candidate for an ablation or device. (2) Acute on chronic combined systolic (congestive) and diastolic (congestive) heart failure: Plan: -well compensated at this time. -diuretics p.r.n.. (3) Afib: Plan: -rate adequately controlled on metoprolol succinate and amiodarone. -tolerating Eliquis without difficulty. (4) Pericardial effusion: Plan: -follow-up echocardiogram noted a smaller effusion. -we will recheck an echocardiogram as an outpatient. (5) Cardiomyopathy: Plan: -borderline left ventricular dysfunction with ejection fraction 45-50%. -essentially unchanged from May 2021 -continue metoprolol succinate and lisinopril. Admission and Anticipated Discharge Date Admission Date: June 20, 2021 Subjective The patient is resting comfortably in bed without complaints of chest pain, dyspnea, or palpitations. Physical Exam Physical Exam: In general this is a well-developed well-nourished white male in no acute distress. HEENT exam is negative. Neck is supple with full carotid upstrokes. No obvious bruits. No JVD. No thyromegaly. Cardiovascular exam reveals an irregular rhythm with distant heart sounds. No obvious murmurs. Lungs note decreased breath sounds at the bases but no rales, rhonchi or wheezes. Abdomen is soft and nontender without bruits. Extremities reveal intact radial artery pulses bilaterally. There is 1+ edema of the upper extremities. Results & Data ([facility]) Vital Signs (Past 12 Hours) Vital Signs Temp Pulse Resp BP Pulse Ox 07/22/21 07:37 36.4 C 77 24 157/93 H 98 07/22/21 02:55 36.6 C 67 16 150/67 H 99 Diagnostic Findings environmental monitoring specialist notes atrial fibrillation at baseline with paroxysms of ventricular tachycardia. PG Care Time/CCT Total # of Minutes Spent Total Time Spent with Patient: Total time spent is greater than 50% in coordination of care (as documented) at patient's floor/unit and/or counseling patient: Coding Level of Care Code 69864 Subseq Hosp Care Lvl 3 Diagnoses Acute on chronic combined systolic (congestive) and diastolic (congestive) heart failure I50.43 Afib I48.91 Pericardial effusion I31.3 Cardiomyopathy I42.9 Ventricular tachycardia I47.2
[2021-07-22] MEDS ORDERED: STAT IV Infusion **Titration per Protocol STA (13:02)
[2021-07-22] MEDS ORDERED: 0.2 MICRON FILTER SET 1 EA IV ONE (13:02)
[2021-07-22] MEDS ORDERED: AMIODARONE IV BOLUS & DRIP IV STA (13:02)
[2021-07-22] MEDS ORDERED: AMIODARONE / D5W 150 MG/100 ML BAG IV STA (13:02)
[2021-07-22] MEDS ORDERED: AMIODARONE / D5W 360 MG/200 ML BAG IV ONE (13:30)
[2021-07-22] MEDS ORDERED: ETANERCEPT 50 MG/ML SQ ONE (17:00)
[2021-07-22] MEDS: AMIODARONE / D5W 360 MG/200 ML BAG IV SCH ×2 (20:09→22:22)
[2021-07-23 05:12] LABS: Eosinophils # (auto) 0.03 K/uL (0-0.5); Eosinophils % (auto) 0.4 %; Hematocrit (blood only) 30.9 % (42-52); Hemoglobin 9.2 g/dL (14.0-18.0); Immature Granulocytes # (auto) 0.03 K/uL (0.00-0.02); Immature Granulocytes % (auto) 0.4 %; Lymphocytes # (auto) 1.47 K/uL (1.2-3.4); Mean Corpuscular Hemoglobin 25.5 pg (25-34); Mean Corpuscular Hgb Conc 29.8 g/dL (32-36); Mean Corpuscular Volume 85.6 fL (80-100); Mean Platelet Volume 9.4 fL (7.4-10.4); Monocytes # (auto) 0.34 K/uL (0.11-0.59); Monocytes % (auto) 4.9 %; Neutrophils # (auto) 5.12 K/uL (1.4-6.5); Neutrophils % (auto) 73.3 %; Platelet Count 459 K/uL (130-400); Red Blood Count 3.61 M/uL (4.7-6.1); White Blood Count 6.99 K/uL (4.8-10.8)
[2021-07-23 05:33] LABS: BUN Creatinine Ratio 64.6 (10-20); Calcium 8.1 mg/dl (8.5-10.1); Creatinine Clr Calc Pharmacy 129.4 ml/min; Est GFR (African American) 123.1 ml/min; Est GFR (Non-African American) 106.2 ml/min; Potassium 3.8 mmol/L (3.5-5.1)
[2021-07-23 06:22] LABS: Anisocytosis Present; Ovalocytes 1+; Polychromasia 1+
[2021-07-23] MEDS: CEROVITE ADV FORMULA TAB PO SCH (09:10)
[2021-07-23] MEDS: SENNA 8.6 MG TAB PO SCH (09:10)
[2021-07-23] MEDS: FERROUS SULFATE 325 MG TAB PO SCH ×2 (09:10→16:22)
[2021-07-23] MEDS: METOPROLOL SUCC 50MG EXT REL TAB PO SCH (09:11)
[2021-07-23] MEDS: APIXABAN 5 MG TABLET PO SCH ×2 (09:11→21:00)
[2021-07-23] MEDS: ASCORBIC ACID 500 MG TAB PO SCH ×2 (09:11→21:00)
[2021-07-23] MEDS: ZINC SULFATE 220 MG CAPSULE PO SCH (09:11)
[2021-07-23] MEDS: rOPINIRole HCL 1 MG TABLET PO SCH ×2 (09:11→21:01)
[2021-07-23] MEDS: lisinopril 5 MG TAB PO SCH (09:11)
[2021-07-23] MEDS: BACLOFEN 10 MG TAB PO SCH ×4 (09:12→21:00)
[2021-07-23] MEDS: THIAMINE HCL 200 MG in SODIUM CHLORIDE 0.9% 50 ML IV SCH ×2 (09:13→21:22)
[2021-07-23] MEDS: POLYETHYLENE (MIRALAX) 17 GM PACK PO SCH (09:13)
[2021-07-23] MEDS: traMADol HCL 50 MG TABLET PO PRN ×2 (09:15→23:36)
[2021-07-23] MEDS: AMIODARONE / D5W 360 MG/200 ML BAG IV SCH (10:21)
[2021-07-23] MEDS: predniSONE 10 MG TABLET PO SCH (11:08)
--- NOTE | 2021-07-23 11:47 | Palliative Care Progress Note ---
Date of Service July 23, 2021 Assessment & Plan (1) Palliative care encounter: Plan: I talked with Mr. Dailey about our previous discussion. He does recall our discussion and confirms that he want "all possible care". I asked him if there were any limits to that and he clearly indicated that there were not. I did discuss concerns that resuscitation would be uncomfortable, perhaps even dangerous with his C2 fracture, and would likely not have the desired outcome of prolonging a meaningful life for him. He indicates that he understands this and is certain that he wants full care, full code. At that time, he asked me to leave the room. Palliative care will sign off for now. Please call if needed. Thank you. (2) Ventricular tachycardia: (3) Paraplegia: (4) Severe protein-calorie malnutrition: (5) Rheumatoid arthritis: (6) Cervical spine fracture: Admission and Anticipated Discharge Date Admission Date: June 20, 2021 Subjective Continues to have runs of V tach. Per RN, he was awake and cogent this morning. He appears drowsy and does not answer questions unless encouraged. He denies pain. Review of Systems Review of Systems: Other (patient refuses) [place] Symptom Assessment Scale Pain 0/3 Dyspnea 0/3 Palliative Performance Score 30% Physical Exam Constitutional: + ill appearing; no acute distress ENMT: Mouth: + dry oral mucous membranes Respiratory: normal respiratory effort; no labored breathing Musculoskeletal: contractures LEs Neurologic: awake; not confused Results & Data ([facility]) Vital Signs (Past 12 Hours) Vital Signs Temp Pulse Resp BP Pulse Ox 07/23/21 11:34 98.6 F 62 22 141/79 H 97 07/23/21 08:00 98.4 F 92 H 22 167/87 H 95 07/23/21 02:30 97.9 F 89 23 167/87 H 97 07/23/21 00:00 98.2 F 87 18 169/96 H 98 PG Care Time/CCT Total # of Minutes Spent Total Time Spent with Patient: Total time spent is greater than 50% in coordination of care (as documented) at patient's floor/unit and/or counseling patient: Coding Level of Care Code 36039 Subseq Hosp Care Lvl 2 Diagnoses Palliative care encounter Z51.5 Ventricular tachycardia I47.2 Paraplegia G82.20 Severe protein-calorie malnutrition E43 Rheumatoid arthritis M06.9 Cervical spine fracture S12.9XXA
--- NOTE | 2021-07-23 13:22 | Cardiology Progress Note ---
Date of Service July 23, 2021 Assessment & Plan (1) Ventricular tachycardia: Plan: -ventricular tachycardia nearly resolved on 2nd IV load of amiodarone. -case discussed with Dr. Marquez, not a candidate for an ablation or device. -would transfer to medical floor bed, no telemetry. (2) Acute on chronic combined systolic (congestive) and diastolic (congestive) heart failure: Plan: -well compensated at this time and only using diuretics p.r.n.. (3) Afib: Plan: -rate adequately controlled on metoprolol succinate and amiodarone. -tolerating Eliquis without difficulty. (4) Pericardial effusion: Plan: -follow-up echocardiogram noted a smaller effusion. -we will recheck an echocardiogram as an outpatient. (5) Cardiomyopathy: Plan: -borderline left ventricular dysfunction with ejection fraction 45-50%. -essentially unchanged from May 2021. -continue metoprolol succinate and lisinopril. Admission and Anticipated Discharge Date Admission Date: June 20, 2021 Subjective The patient is resting comfortably in bed without complaints of chest pain, dyspnea, or palpitations. Physical Exam Physical Exam: In general this is a well-developed well-nourished white male in no acute distress. HEENT exam is negative. Neck is supple with full carotid upstrokes. No obvious bruits. No JVD. No thyromegaly. Cardiovascular exam reveals an irregular rhythm with distant heart sounds. No obvious murmurs. Lungs note decreased breath sounds at the bases but no rales, rhonchi or wheezes. Abdomen is soft and nontender without bruits. Extremities reveal intact radial artery pulses bilaterally. There is 1+ edema of the upper extremities. Results & Data ([facility]) Vital Signs (Past 12 Hours) Vital Signs Temp Pulse Resp BP Pulse Ox 07/23/21 11:34 37.0 C 62 22 141/79 H 97 07/23/21 08:00 36.9 C 92 H 22 167/87 H 95 07/23/21 02:30 36.6 C 89 23 167/87 H 97 Diagnostic Findings alarm mechanism adjuster notes atrial fibrillation with a controlled ventricular response. No episodes of ventricular tachycardia since last evening. PG Care Time/CCT Total # of Minutes Spent Total Time Spent with Patient: Total time spent is greater than 50% in coordination of care (as documented) at patient's floor/unit and/or counseling patient: Coding Level of Care Code 05680 Subseq Hosp Care Lvl 3 Diagnoses Ventricular tachycardia I47.2 Acute on chronic combined systolic (congestive) and diastolic (congestive) heart failure I50.43 Afib I48.91 Pericardial effusion I31.3 Cardiomyopathy I42.9
--- NOTE | 2021-07-23 13:28 | Hospitalist Progress Note ---
Date of Service July 23, 2021 Assessment & Plan (1) Ventricular tachycardia: Plan: Ventricular tachycardia 2/2 cardiomyopathy Substantial V. tach burden over the weekend, resolved following reload with amiodarone Converted from IV back to 200 mg p.o. twice daily. Discussed with cardiology, given resolution and asymptomatic status with poor candidate for any other treatments and not being a surgical candidate will continue amiodarone, discontinue telemetry - prior digoxcin d/sharmila - K goal 4.0, Mg 2.0 (2) Acute on chronic combined systolic (congestive) and diastolic (congestive) heart failure: Plan: -appears compensated - Unclear etiology of O2 requirement - Consider ILD from "rheumatoid lung", pulm HTN, high res CT for f/u - BB as above - Continue lisinopril 5mg daily - Fluid balance near euvolemic (3) Altered mental status: Plan: resolved (4) Open wound of heel: Plan: - L heel. - Pressure ulcer due to severe contractures & bedbound status. - Wound care following. - Recent culture with pseudomonas (pansensitive) and MRSA. s/p 7 day course of abx for each pathogen earlier this stay. - Recent MRI with no obvious osteomyelitis. - Seen by Dr Saba, orthopedics - ongoing wound care advised. - Nursing attempted waffle boots earlier this week but unable due to contractures. - cont local wound care. (5) Acute respiratory failure with hypoxia: Plan: -2nd acute/chronic CHF. -Possible small subsegmental RUL PE on recent CTA unlikely to be clinically significant -Has been aggressively diuresed throughout his stay and O2 sats have been stable for several days. - Continue eliquis for a.fib/PEs. -remains on NC O2 - attempt to wean. Updated chest x-ray pending, daily weight 76.6 which appears near dry weight. Cautious overdiuresis against history of tachyarrhythmia. (6) Afib: Plan: Permanent A. fib Rate control with metoprolol as noted otherwise Digoxin stopped as noted Amiodarone adjusted as noted for ventricular tachycardia Continue Eliquis Continue telemetry (7) Pleural effusion: Plan: -Secondary to CHF, severe hypoalbuminemia, etc. -O2 sats stable -recent TSH in May wnl. -creatinine wnl. -no liver disease. 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 -Recent MRI showed chronic nonunited type II odontoid fracture consistent with unstable fx and mild displacement of odontoid tip with central canal narrowing at C1 level, progressive marrow edema at C1-C2 levels, and cervical spinal stenosis and neuroforaminal stenosis -throughout the cervical spine. -Dr Hassan saw earlier in June -- poor surgical candidate.Would need surgical repair at tertiary care care. Uncertain, given his numerous comorbidities and bed-bound status, if surgery would even be an option for him. - Cont soft collar with transfers and movements - if he will comply (most days he will not wear). -07/[address] c[address] unchanged from prior imaging. -Paraplegia/contracture differential includes C-spine fracture canal compromise (9) Bacteremia: Plan: -MSSA bacteremia - s/p 6 weeks of Rx with ancef IV (to cover for possibility of SBE as echo was neg for vegetations but high suspicion for SBE). completed the course earlier in the stay. (10) Joint contracture of left lower leg: Plan: Differential includes cervical stenosis/impingement Continue baclofen 5 mg a.m., 5 mg afternoon, 10 mg nightly (11) Hypoalbuminemia: Plan: Nutrition consulted Cont protein/diet supplements. Continue MVI, vit C, zinc. Continue high-dose thiamine 200 mg twice daily Gluten-free diet Appetite improving/improved (12) Restless leg syndrome: Plan: -Continue ropinirole 2 PO BID (13) Anemia: Plan: -Recent trans-sat was <20%. -Overall his iron studies are most c/w anemia of chronic disease with element of Fe deficiency as well. -H/H stable for numerous days in a row without any overt GI bleeding. Heme neg stool. - Venofer 300mg daily x 3 days on 06/22, 06/23, and 06/24. 200mg also given on 07/03. -CBC every 48 hours (14) Rheumatoid arthritis: Plan: -Takes etanercept chronically. -Last dose uncertain. -[facility] to bring over a dose 07/22. Will verify, may give 07/23 and call to have weekly dose brought at this time -Per pharmacy verification patient had NOT received any Enbrel over his last few hospital stays. -Started prednisone 40mg daily on 07/15 for active RA. Symptomatically improved, continue 30 mg dose until 07/26, followed by 20 mg x 1 week, followed by 10 mg for 1 week -Follows w/ rheum in [place]. Consider high-resolution CT scan for pulmonary involvement of rheumatoid (15) Hypomagnesemia: Plan: -resolved (16) Severe protein-calorie malnutrition: Plan: -see hypoalbuminemia above -Continue multivitamin, vitamin supplementation and encouraging diet. Diet overall improving May consider boost if needed Celiac labs pending (17) DVT prophylaxis: Plan: Continue Eliquis (18) Paraplegia: Plan: Acquired. Unclear etiology. Potentially related to C-spine fracture/spine compression, MRI spine shows Redemonstration of the chronic nonunited type II odontoid fracture. This is consistent with an unstable fracture. There remains mild anterior displacement of the odontoid tip resulting in moderate to severe central canal narrowing at the C1 level. No marrow edema identified within the cervical spinal cord at this time. Progressive marrow edema at the C1-C2 levels. This is nonspecific and could be due to the chronic instability. No definite acute fractures identified. -Case previously discussed with with ortho/spine spine, patient not a surgical candidate/poor surgical candidate (19) Discharge planning issues: Plan: -Appreciate palliative care, patient expresses understanding of his medical condition but desire for full code including CPR understanding this could be complicated given his comorbidities especially with his cervical fracture. Expresses understanding, affirms full code. Palliative care signed off -Per prior provider Dr. Longoria experience "Insight very poor, however, and I don't think he understands the complexities of his current health status." Agree with this assessment. -Has POLST on file indicating full code, all measures, etc. -He has no family to contact to give update to. -social work heavily involved in his complex care. -he will return to [facility] at discharge under a court order via the Office of Aging. (patient often asks to return to an apartment post-d/c which is simply not possible given his current status; he cannot care for himself) (20) Pressure ulcer: Plan: - L buttock/gluteal pressure ulcer ~grade II with concern for surrounding [place] - + Nystatin powder - Pressure ulcer care, position change, gel dressing as needed Plan: Ventricular arrhythmia improved following second load with amiodarone, will continue oral amnio and discontinue telemetry as noted following discussion with cardiology. Patient is chronically ill with multiple comorbidities, but is not a surgical candidate for these per evaluations as noted. Recommend observing patient status overnight and observing following transition to oral amiodarone, he remained stable recommend proceeding with disposition planning. Must return to a facility and is not allowed to return to apartment per court order via the office of aging, case management to check with [facility] for placement. Admission and Anticipated Discharge Date Admission Date: June 20, 2021 Subjective Ptient seen at bedside. Reports his buttock is sore. Otherwise feels improved, energy is improved from prior. No chest pain, chest pressure, palpitations, shortness of breath, or difficulty brething .Discussed amiodarone treatment with pt in detail, no other questions or concerns at time of bedside assessment Review of Systems Review of Systems: Constitutional: Denies fever, chills, malaise, weight change Eyes: Denies double vision, vision change, eye pain ENT: Denies ear pain, sore throat, sinus pain Cardiovascular: Denies Chest pain, chest pressure, palpitations, extremity swelling Respiratory: Denies shortness of breath, cough, sputum production, difficulty breathing Gastrointestinal: Denies abdominal pain, nausea, vomiting, constipation, diarrhea Genitourinary: Denies pain with urination, urinary urgency, urinary frequency Musculoskeletal: No acute change. Integumentary: Endorses buttock soreness Neurological: No acute changes. Physical Exam Physical Exam: General: A&Ox3. NAD. Cooperative. HEENT: Atraumatic, normocephalic. Pupils equal and reactive to light and accommodation. Pulm: Bibasilar crackles, no overt rales symmetrical chest rise. No increase work of breathing. No respiratory distress. Cardiac: RRR, -mrg. Radial pulses intact and symmetrical. Abdominal: Nontender, nondistended, soft. BS present. Extremities: Extremities contracted to flexion position, hypertonic. 2+ edema bilaterally. PT pulse intact bilaterally. Wounds: Left foot 2 mm ulcer without overlying tenderness, warmth, discharge. Posterior L gluteal cleft with skin [place] and pressure ulcer grade II, surrounding mild erythema with flake. Results & Data Results & Data ([facility]) Vital Signs (Past 12 Hours) Vital Signs Temp Pulse Resp BP Pulse Ox 07/23/21 11:34 37.0 C 62 22 141/79 H 97 07/23/21 08:00 36.9 C 92 H 22 167/87 H 95 07/23/21 02:30 36.6 C 89 23 167/87 H 97 PG Care Time/CCT Total # of Minutes Spent Total Time Spent with Patient: Total time spent is greater than 50% in coordination of care (as documented) at patient's floor/unit and/or counseling patient: Coding Level of Care Code 97252 Subseq Hosp Care Lvl 3 Diagnoses Ventricular tachycardia I47.2 Acute on chronic combined systolic (congestive) and diastolic (congestive) heart failure I50.43 Altered mental status R41.82 Open wound of heel S91.309A Acute respiratory failure with hypoxia J96.01 Afib I48.91 Pleural effusion J90 Cervical spine fracture S12.9XXA Bacteremia R78.81 Joint contracture of left lower leg M24.562 Hypoalbuminemia E88.09 Restless leg syndrome G25.81 Anemia D64.9 Rheumatoid arthritis M06.9 Rheumatoid arthritis location: unspecified site Rheumatoid factor presence: unspecified presence Hypomagnesemia E83.42 Severe protein-calorie malnutrition E43 DVT prophylaxis Z29.9 Paraplegia G82.20 Discharge planning issues Z02.9 Pressure ulcer L89.90 (1) Rheumatoid arthritis Rheumatoid arthritis location: unspecified site Rheumatoid factor presence: unspecified presence Qualified Code(s): M06.9 - Rheumatoid arthritis, unspecified
[2021-07-23 14:26] LABS: Transglutaminase, Tissue IgA 1 U/mL; Transglutaminase, Tissue IgG 1 U/mL
[2021-07-23] MEDS: AMIODARONE 200 MG TAB PO SCH (16:22)
[2021-07-23] MEDS: NYSTATIN POWDER 15GM BTL EXT SCH (21:01)
[2021-07-24] MEDS: AMIODARONE 200 MG TAB PO SCH ×2 (08:34→17:24)
[2021-07-24] MEDS: FERROUS SULFATE 325 MG TAB PO SCH ×2 (08:35→17:24)
[2021-07-24] MEDS: BACLOFEN 10 MG TAB PO SCH ×3 (08:36→21:45)
[2021-07-24] MEDS: APIXABAN 5 MG TABLET PO SCH ×2 (08:36→21:45)
[2021-07-24] MEDS: ASCORBIC ACID 500 MG TAB PO SCH ×2 (08:36→21:44)
[2021-07-24] MEDS: lisinopril 5 MG TAB PO SCH (08:37)
[2021-07-24] MEDS: METOPROLOL SUCC 50MG EXT REL TAB PO SCH (08:38)
[2021-07-24] MEDS: predniSONE 10 MG TABLET PO SCH (08:39)
[2021-07-24] MEDS: CEROVITE ADV FORMULA TAB PO SCH (08:39)
[2021-07-24] MEDS: rOPINIRole HCL 1 MG TABLET PO SCH ×2 (08:40→21:44)
[2021-07-24] MEDS: ZINC SULFATE 220 MG CAPSULE PO SCH (08:40)
[2021-07-24] MEDS: THIAMINE HCL 200 MG in SODIUM CHLORIDE 0.9% 50 ML IV SCH ×2 (08:41→21:46)
[2021-07-24] MEDS: NYSTATIN POWDER 15GM BTL EXT SCH ×3 (08:43→21:45)
[2021-07-24] MEDS ORDERED: POLYETHYLENE (MIRALAX) 17 GM PACK PO PRN (11:01)
--- NOTE | 2021-07-24 18:22 | Hospitalist Progress Note ---
Date of Service July 24, 2021 Assessment & Plan (1) Ventricular tachycardia: Plan: Ventricular tachycardia 2/2 cardiomyopathy Substantial V. tach burden over the weekend, resolved following reload with amiodarone Continue p.o. amiodarone 200 mg twice daily Discussed with cardiology, given resolution and asymptomatic status with poor candidate for any other treatments and not being a surgical candidate will continue amiodarone, discontinue telemetry - prior digoxcin d/sharmila - K goal 4.0, Mg 2.0 (2) Acute on chronic combined systolic (congestive) and diastolic (congestive) heart failure: Plan: -appears compensated - Unclear etiology of O2 requirement - Consider ILD from "rheumatoid lung", pulm HTN, high res CT for f/u - BB as above - Continue lisinopril 5mg daily - Fluid balance near euvolemic (3) Altered mental status: Plan: resolved (4) Open wound of heel: Plan: - L heel. - Pressure ulcer due to severe contractures & bedbound status. - Wound care following. - Recent culture with pseudomonas (pansensitive) and MRSA. s/p 7 day course of abx for each pathogen earlier this stay. - Recent MRI with no obvious osteomyelitis. - Seen by Dr Saba, orthopedics - ongoing wound care advised. - Nursing attempted waffle boots earlier this week but unable due to contractures. - cont local wound care. (5) Acute respiratory failure with hypoxia: Plan: -2nd acute/chronic CHF. -Possible small subsegmental RUL PE on recent CTA unlikely to be clinically significant -Has been aggressively diuresed throughout his stay and O2 sats have been stable for several days. - Continue eliquis for a.fib/PEs. -remains on NC O2 - attempt to wean. appears near dry weight. Cautious overdiuresis against history of tachyarrhythmia. (6) Afib: Plan: Permanent A. fib Rate control with metoprolol as noted otherwise Digoxin stopped as noted Amiodarone adjusted as noted for ventricular tachycardia Continue Eliquis Continue telemetry (7) Pleural effusion: Plan: -Secondary to CHF, severe hypoalbuminemia, etc. -O2 sats stable -recent TSH in May wnl. -creatinine wnl. -no liver disease. 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 -Recent MRI showed chronic nonunited type II odontoid fracture consistent with unstable fx and mild displacement of odontoid tip with central canal narrowing at C1 level, progressive marrow edema at C1-C2 levels, and cervical spinal stenosis and neuroforaminal stenosis -throughout the cervical spine. -Dr Hassan saw earlier in June -- poor surgical candidate.Would need surgical repair at tertiary care care. Uncertain, given his numerous comorbidities and bed-bound status, if surgery would even be an option for him. - Cont soft collar with transfers and movements - if he will comply (most days he will not wear). -07/[address] c-[address] CT unchanged from prior imaging. -Paraplegia/contracture differential includes C-spine fracture canal compromise (9) Bacteremia: Plan: -MSSA bacteremia - s/p 6 weeks of Rx with ancef IV (to cover for possibility of SBE as echo was neg for vegetations but high suspicion for SBE). completed the course earlier in the stay. (10) Joint contracture of left lower leg: Plan: Differential includes cervical stenosis/impingement Continue baclofen 5 mg a.m., 5 mg afternoon, 10 mg nightly (11) Hypoalbuminemia: Plan: Nutrition consulted Cont protein/diet supplements. Continue MVI, vit C, zinc. Continue high-dose thiamine 200 mg twice daily Gluten-free diet Appetite improving/improved (12) Restless leg syndrome: Plan: -Continue ropinirole 2 PO BID (13) Anemia: Plan: -Recent trans-sat was <20%. -Overall his iron studies are most c/w anemia of chronic disease with element of Fe deficiency as well. -H/H stable for numerous days in a row without any overt GI bleeding. Heme neg stool. - Venofer 300mg daily x 3 days on 06/22, 06/23, and 06/24. 200mg also given on 07/03. -CBC every 48 hours (14) Rheumatoid arthritis: Plan: -Takes etanercept chronically. -Last dose uncertain. -[facility] to bring over a dose 07/22. Will verify, may give 07/23 and call to have weekly dose brought at this time -Per pharmacy verification patient had NOT received any Enbrel over his last few hospital stays. -Started prednisone 40mg daily on 07/15 for active RA. Symptomatically improved, continue 30 mg dose until 07/26, followed by 20 mg x 1 week, followed by 10 mg f or 1 week -Follows w/ rheum in [place]. Consider high-resolution CT scan for pulmonary involvement of rheumatoid (15) Hypomagnesemia: Plan: -resolved (16) Severe protein-calorie malnutrition: Plan: -see hypoalbuminemia above -Continue multivitamin, vitamin supplementation and encouraging diet. Diet overall improving May consider boost if needed Celiac labs pending (17) DVT prophylaxis: Plan: Continue Eliquis (18) Paraplegia: Plan: Acquired. Unclear etiology. Potentially related to C-spine fracture/spine compression, MRI spine shows Redemonstration of the chronic nonunited type II odontoid fracture. This is consistent with an unstable fracture. There remains mild anterior displacement of the odontoid tip resulting in moderate to severe central canal narrowing at the C1 level. No marrow edema identified within the cervical spinal cord at this time. Progressive marrow edema at the C1-C2 levels. This is nonspecific and could be due to the chronic instability. No definite acute fractures identified. -Case previously discussed with with ortho/spine spine, patient not a surgical candidate/poor surgical candidate (19) Discharge planning issues: Plan: -Appreciate palliative care, patient expresses understanding of his medical condition but desire for full code including CPR understanding this could be complicated given his comorbidities especially with his cervical fracture. Expresses understanding, affirms full code. Palliative care signed off -Per prior provider Dr. Longoria experience "Insight very poor, however, and I don't think he understands the complexities of his current health status." Agree with this assessment. -Has POLST on file indicating full code, all measures, etc. -He has no family to contact to give update to. -social work heavily involved in his complex care. -he will return to [facility] at discharge under a court order via the Office of Aging, if bed at [facility] unavailable patient may require placement in a different facility and discussion with office of aging regarding court order. (patient often asks to return to an apartment post-d/c which is simply not possible given his current status; he cannot care for himself) (20) Pressure ulcer: Plan: - L buttock/gluteal pressure ulcer ~grade II with concern for surrounding davis - + Nystatin powder - Pressure ulcer care, position change, gel dressing as needed Plan: Ventricular arrhythmia improved following second load with amiodarone, will continue oral amnio and discontinued telemetry as noted following discussion with cardiology. Patient is chronically ill with multiple comorbidities, but is not a surgical candidate for these per evaluations as noted. Recommend observing patient status overnight and observing following transition to oral amiodarone, he remained stable recommend proceeding with disposition planning. Must return to a facility and is not allowed to return to apartment per court order via the office of aging, case management to check with [facility] for placement. Patient expresses concerns regarding discharge, and expresses a preference to be discharged home but he is not able to relate a safe care plan for how he will self-care at home, and relate the risk of discharge home to his current medical condition and prior admission. Case management working with office of aging, dispo pending Admission and Anticipated Discharge Date Admission Date: June 20, 2021 Subjective Patient seen at the bedside this morning. No new symptoms or change, patient feels the irritation of his buttock is improved from prior. Patient expresses that he would like to return home and not to a facility or [facility] on discharge. Discussed his standing court order and office of aging intervention. Not expressed a plan for how he would care for himself at home if discharged home. Expresses a desire to speak with additional staff regarding his court order and options, encouraged to discuss with case management who were highly involved with his care and disposition planning. No other questions at time of assessment Review of Systems Review of Systems: Constitutional: Denies fever, chills, malaise, weight change Eyes: Denies double vision, vision change, eye pain ENT: Denies ear pain, sore throat, sinus pain Cardiovascular: Denies Chest pain, chest pressure, palpitations, extremity swelling Respiratory: Denies shortness of breath, cough, sputum production, difficulty breathing Gastrointestinal: Denies abdominal pain, nausea, vomiting, constipation, shonda rrhea Genitourinary: Denies pain with urination, urinary urgency, urinary frequency Musculoskeletal: No acute change. Integumentary: Endorses buttock soreness Neurological: No acute changes. Physical Exam Physical Exam: General: A&Ox3. NAD. Cooperative. HEENT: Atraumatic, normocephalic. Pupils equal and reactive to light and accommodation. Pulm: Bibasilar crackles, no overt rales symmetrical chest rise. No increase work of breathing. No respiratory distress. Cardiac: RRR, -mrg. Radial pulses intact and symmetrical. Abdominal: Nontender, nondistended, soft. BS present. Extremities: Extremities contracted to flexion position, hypertonic. 2+ edema bilaterally. PT pulse intact bilaterally. Wounds: Left foot 2 mm ulcer without overlying tenderness, warmth, discharge. Results & Data Results & Data ([facility]) Vital Signs (Past 12 Hours) Vital Signs Temp Pulse Resp BP Pulse Ox 07/24/21 15:38 36.9 C 81 16 171/84 H 100 07/24/21 07:49 36.4 C L 79 18 170/90 H 99 PG Care Time/CCT Total # of Minutes Spent Total Time Spent with Patient: Total time spent is greater than 50% in coordination of care (as documented) at patient's floor/unit and/or counseling patient: Coding Level of Care Code 33280 Subseq Hosp Care Lvl 2 Diagnoses Ventricular tachycardia I47.2 Acute on chronic combined systolic (congestive) and diastolic (congestive) heart failure I50.43 Altered mental status R41.82 Open wound of heel S91.309A Acute respiratory failure with hypoxia J96.01 Afib I48.91 Pleural effusion J90 Cervical spine fracture S12.9XXA Bacteremia R78.81 Joint contracture of left lower leg M24.562 Hypoalbuminemia E88.09 Restless leg syndrome G25.81 Anemia D64.9 Rheumatoid arthritis M06.9 Rheumatoid arthritis location: unspecified site Rheumatoid factor presence: unspecified presence Hypomagnesemia E83.42 Severe protein-calorie malnutrition E43 DVT prophylaxis Z29.9 Paraplegia G82.20 Discharge planning issues Z02.9 Pressure ulcer L89.90 (1) Rheumatoid arthritis Rheumatoid arthritis location: unspecified site Rheumatoid factor presence: unspecified presence Qualified Code(s): M06.9 - Rheumatoid arthritis, unspecified
[2021-07-25] MEDS: traMADol HCL 50 MG TABLET PO PRN (04:37)
[2021-07-25] MEDS ORDERED: HYDROCORTISONE VAL 0.2% CRM 15GM TUBE EXT ONE (04:41)
[2021-07-25] MEDS: predniSONE 10 MG TABLET PO SCH (08:19)
[2021-07-25] MEDS: CEROVITE ADV FORMULA TAB PO SCH (08:20)
[2021-07-25] MEDS: lisinopril 10 MG TAB PO SCH (08:20)
[2021-07-25] MEDS: METOPROLOL SUCC 50MG EXT REL TAB PO SCH (08:21)
[2021-07-25] MEDS: ZINC SULFATE 220 MG CAPSULE PO SCH (08:21)
[2021-07-25] MEDS: ASCORBIC ACID 500 MG TAB PO SCH ×2 (08:21→20:48)
[2021-07-25] MEDS: rOPINIRole HCL 1 MG TABLET PO SCH ×2 (08:22→20:49)
[2021-07-25] MEDS: APIXABAN 5 MG TABLET PO SCH ×2 (08:22→20:49)
[2021-07-25] MEDS: THIAMINE HCL 200 MG in SODIUM CHLORIDE 0.9% 50 ML IV SCH ×2 (08:23→20:49)
[2021-07-25] MEDS: BACLOFEN 10 MG TAB PO SCH ×4 (08:23→20:49)
[2021-07-25] MEDS: AMIODARONE 200 MG TAB PO SCH ×2 (08:25→18:22)
[2021-07-25] MEDS: FERROUS SULFATE 325 MG TAB PO SCH ×2 (08:25→18:22)
[2021-07-25] MEDS: NYSTATIN POWDER 15GM BTL EXT SCH ×3 (08:26→20:49)
--- NOTE | 2021-07-25 18:18 | Hospitalist Progress Note ---
Date of Service July 25, 2021 Assessment & Plan (1) Ventricular tachycardia: Plan: Ventricular tachycardia 2/2 cardiomyopathy Substantial V. tach burden over the weekend, resolved following reload with amiodarone Continue p.o. amiodarone 200 mg twice daily Discussed with cardiology, given resolution and asymptomatic status with poor candidate for any other treatments and not being a surgical candidate will continue amiodarone, discontinue telemetry - prior digoxcin d/sharmila - K goal 4.0, Mg 2.0 (2) Acute on chronic combined systolic (congestive) and diastolic (congestive) heart failure: Plan: -appears compensated - Unclear etiology of O2 requirement - Consider ILD from "rheumatoid lung", pulm HTN, high res CT for f/u - BB as above - Continue lisinopril 5mg daily - Fluid balance near euvolemic (3) Altered mental status: Plan: resolved (4) Open wound of heel: Plan: - L heel. - Pressure ulcer due to severe contractures & bedbound status. - Wound care following. - Recent culture with pseudomonas (pansensitive) and MRSA. s/p 7 day course of abx for each pathogen earlier this stay. - Recent MRI with no obvious osteomyelitis. - Seen by Dr Saba, orthopedics - ongoing wound care advised. - Nursing attempted waffle boots earlier this week but unable due to contractures. - cont local wound care. (5) Acute respiratory failure with hypoxia: Plan: -2nd acute/chronic CHF. -Possible small subsegmental RUL PE on recent CTA unlikely to be clinically significant -Has been aggressively diuresed throughout his stay and O2 sats have been stable for several days. - Continue eliquis for a.fib/PEs. -remains on NC O2 - attempt to wean. appears near dry weight. Cautious overdiuresis against history of tachyarrhythmia. (6) Afib: Plan: Permanent A. fib Rate control with metoprolol as noted otherwise Digoxin stopped as noted Amiodarone adjusted as noted for ventricular tachycardia Continue Eliquis Continue telemetry (7) Pleural effusion: Plan: -Secondary to CHF, severe hypoalbuminemia, etc. -O2 sats stable -recent TSH in May wnl. -creatinine wnl. -no liver disease. 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 -Recent MRI showed chronic nonunited type II odontoid fracture consistent with unstable fx and mild displacement of odontoid tip with central canal narrowing at C1 level, progressive marrow edema at C1-C2 levels, and cervical spinal stenosis and neuroforaminal stenosis -throughout the cervical spine. -Dr Hassan saw earlier in June -- poor surgical candidate.Would need surgical repair at tertiary care care. Uncertain, given his numerous comorbidities and bed-bound status, if surgery would even be an option for him. - Cont soft collar with transfers and movements - if he will comply (most days he will not wear). -07/06 c-spine CT unchanged from prior imaging. -Paraplegia/contracture differential includes C-spine fracture canal compromise (9) Bacteremia: Plan: -MSSA bacteremia - s/p 6 weeks of Rx with ancef IV (to cover for possibility of SBE as echo was neg for vegetations but high suspicion for SBE). completed the course earlier in the stay. (10) Joint contracture of left lower leg: Plan: Differential includes cervical stenosis/impingement Continue baclofen 5 mg a.m., 5 mg afternoon, 10 mg nightly (11) Hypoalbuminemia: Plan: Nutrition consulted Cont protein/diet supplements. Continue MVI, vit C, zinc. Continue high-dose thiamine 200 mg twice daily Gluten-free diet Appetite improving/improved (12) Restless leg syndrome: Plan: -Continue ropinirole 2 PO BID (13) Anemia: Plan: -Recent trans-sat was <20%. -Overall his iron studies are most c/w anemia of chronic disease with element of Fe deficiency as well. -H/H stable for numerous days in a row without any overt GI bleeding. Heme neg stool. - Venofer 300mg daily x 3 days on 06/22, 06/23, and 06/24. 200mg also given on 07/03. -CBC every 48 hours (14) Rheumatoid arthritis: Plan: -Takes etanercept chronically. -Last dose uncertain. -[facility] to bring over a dose 07/22. Will verify, may give 07/23 and call to have weekly dose brought at this time -Per pharmacy verification patient had NOT received any Enbrel over his last few hospital stays. -Started prednisone 40mg daily on 07/15 for active RA. Symptomatically improved, continue 30 mg dose until 07/26, followed by 20 mg x 1 week, followed by 10 mg f or 1 week -Follows w/ rheum in [place]. Consider high-resolution CT scan for pulmonary involvement of rheumatoid (15) Hypomagnesemia: Plan: -resolved (16) Severe protein-calorie malnutrition: Plan: -see hypoalbuminemia above -Continue multivitamin, vitamin supplementation and encouraging diet. Diet overall improving May consider boost if needed Celiac labs pending (17) DVT prophylaxis: Plan: Continue Eliquis (18) Paraplegia: Plan: Acquired. Unclear etiology. Potentially related to C-spine fracture/spine compression, MRI spine shows Redemonstration of the chronic nonunited type II odontoid fracture. This is consistent with an unstable fracture. There remains mild anterior displacement of the odontoid tip resulting in moderate to severe central canal narrowing at the C1 level. No marrow edema identified within the cervical spinal cord at this time. Progressive marrow edema at the C1-C2 levels. This is nonspecific and could be due to the chronic instability. No definite acute fractures identified. -Case previously discussed with with ortho/spine spine, patient not a surgical candidate/poor surgical candidate (19) Discharge planning issues: Plan: -Appreciate palliative care, patient expresses understanding of his medical condition but desire for full code including CPR understanding this could be complicated given his comorbidities especially with his cervical fracture. Expresses understanding, affirms full code. Palliative care signed off -Per prior provider Dr. Longoria experience "Insight very poor, however, and I don't think he understands the complexities of his current health status." Agree with this assessment. -Has POLST on file indicating full code, all measures, etc. -He has no family to contact to give update to. -social work heavily involved in his complex care. -he will return to [facility] at discharge under a court order via the Office of Aging, if bed at [facility] unavailable patient may require placement in a different facility and discussion with office of aging regarding court order. (patient often asks to return to an apartment post-d/c which is simply not possible given his current status; he cannot care for himself) (20) Pressure ulcer: Plan: - L buttock/sacral pressure ulcer ~grade II with concern for surrounding davis - + Nystatin powder - Pressure ulcer care, position change, gel dressing as needed Plan: Ventricular arrhythmia improved following second load with amiodarone, will continue oral amnio and discontinued telemetry as noted following discussion with cardiology. Patient is chronically ill with multiple comorbidities, but is not a surgical candidate for these per evaluations as noted. Recommend observing patient status overnight and observing following transition to oral amiodarone, he remained stable recommend proceeding with disposition planning. Must return to a facility and is not allowed to return to apartment per court order via the office of aging, case management [facility]. Patient expresses concerns regarding discharge, and expresses a preference to be discharged home but he is not able to relate a safe care plan for how he will self-care at home, and relate the risk of discharge home to his current medical condition and prior admission. Case management working with office of aging, dispo pending Admission and Anticipated Discharge Date Admission Date: June 20, 2021 Subjective Seen at the bedside this morning. Patient reports he feels unchanged from yesterday, his buttock feels slightly less sore today. Was curious how long he can take ulcers to heal, discussed natural course and need for positional change and pressure protection. No other questions at time of assessment. Patient denies fever, chills, sweats, lightheadedness, dizziness, chest pain, chest pressure, shortness of breath. Reports his knee is intermittently sore when manipulated, no acute change. Review of Systems Review of Systems: 10 point review systems negative except as noted in HPI Physical Exam Physical Exam: General: A&Ox3. NAD. Cooperative. HEENT: Atraumatic, normocephalic. Pupils equal and reactive to light and accommodation. Pulm: Bibasilar crackles, no overt rales symmetrical chest rise. No increase work of breathing. No respiratory distress. Cardiac: RRR, -mrg. Radial pulses intact and symmetrical. Abdominal: Nontender, nondistended, soft. BS present. Extremities: Extremities contracted to flexion position, hypertonic. 2+ edema bilaterally. PT pulse intact bilaterally. Wounds: Left foot 2 mm ulcer without overlying tenderness, warmth, discharge. Sacral stage II ulceration, patient positionally rotated with nursing and gel dressing applied. Results & Data Results & Data ([facility]) Vital Signs (Past 12 Hours) Vital Signs Temp Pulse Pulse Resp BP BP Pulse Ox 07/25/21 16:00 36.7 C 90 20 109/68 99 07/25/21 07:35 36.4 C L 94 H 20 146/79 H 92 PG Care Time/CCT Total # of Minutes Spent Total Time Spent with Patient: Total time spent is greater than 50% in coordination of care (as documented) at patient's floor/unit and/or counseling patient: Coding Level of Care Code 76754 Subseq Hosp Care Lvl 2 Diagnoses Ventricular tachycardia I47.2 Acute on chronic combined systolic (congestive) and diastolic (congestive) heart failure I50.43 Altered mental status R41.82 Open wound of heel S91.309A Acute respiratory failure with hypoxia J96.01 Afib I48.91 Pleural effusion J90 Cervical spine fracture S12.9XXA Bacteremia R78.81 Joint contracture of left lower leg M24.562 Hypoalbuminemia E88.09 Restless leg syndrome G25.81 Anemia D64.9 Rheumatoid arthritis M06.9 Rheumatoid arthritis location: unspecified site Rheumatoid factor presence: unspecified presence Hypomagnesemia E83.42 Severe protein-calorie malnutrition E43 DVT prophylaxis Z29.9 Paraplegia G82.20 Discharge planning issues Z02.9 Pressure ulcer L89.90 (1) Rheumatoid arthritis Rheumatoid arthritis location: unspecified site Rheumatoid factor presence: unspecified presence Qualified Code(s): M06.9 - Rheumatoid arthritis, unspecified
[2021-07-26] MEDS: traMADol HCL 50 MG TABLET PO PRN ×3 (02:58→16:53)
[2021-07-26 07:55] LABS: Eosinophils # (auto) 0.02 K/uL (0-0.5); Eosinophils % (auto) 0.3 %; Hematocrit (blood only) 31.1 % (42-52); Hemoglobin 9.5 g/dL (14.0-18.0); Immature Granulocytes # (auto) 0.03 K/uL (0.00-0.02); Immature Granulocytes % (auto) 0.4 %; Lymphocytes % (auto) 22.8 %; Mean Corpuscular Hgb Conc 30.5 g/dL (32-36); Mean Corpuscular Volume 85.2 fL (80-100); Mean Platelet Volume 9.3 fL (7.4-10.4); Monocytes # (auto) 0.35 K/uL (0.11-0.59); Monocytes % (auto) 4.7 %; Neutrophils # (auto) 5.36 K/uL (1.4-6.5); Neutrophils % (auto) 71.8 %; Platelet Count 406 K/uL (130-400); RDW Coefficient of Variation 21.6 % (11.5-14.5); RDW Standard Deviation 66.5 fL (36.4-46.3); Red Blood Count 3.65 M/uL (4.7-6.1); White Blood Count 7.46 K/uL (4.8-10.8)
[2021-07-26] MEDS: THIAMINE HCL 200 MG in SODIUM CHLORIDE 0.9% 50 ML IV SCH ×2 (08:11→21:39)
[2021-07-26] MEDS: BACLOFEN 10 MG TAB PO SCH ×3 (08:16→21:24)
[2021-07-26] MEDS: ASCORBIC ACID 500 MG TAB PO SCH ×2 (08:17→21:23)
[2021-07-26] MEDS: CEROVITE ADV FORMULA TAB PO SCH (08:17)
[2021-07-26] MEDS: APIXABAN 5 MG TABLET PO SCH ×2 (08:17→21:24)
[2021-07-26] MEDS: ZINC SULFATE 220 MG CAPSULE PO SCH (08:18)
[2021-07-26] MEDS: FERROUS SULFATE 325 MG TAB PO SCH ×2 (08:18→16:56)
[2021-07-26] MEDS: rOPINIRole HCL 1 MG TABLET PO SCH ×2 (08:18→21:39)
[2021-07-26] MEDS: AMIODARONE 200 MG TAB PO SCH ×2 (08:18→16:56)
[2021-07-26] MEDS: predniSONE 10 MG TABLET PO SCH (08:18)
[2021-07-26] MEDS: METOPROLOL SUCC 50MG EXT REL TAB PO SCH (08:19)
[2021-07-26] MEDS: NYSTATIN POWDER 15GM BTL EXT SCH ×3 (08:19→21:24)
[2021-07-26] MEDS: lisinopril 10 MG TAB PO SCH (08:20)
[2021-07-26 08:21] LABS: Anisocytosis Present; Basophilic Stippling 1+; Polychromasia 1+
[2021-07-26 08:23] LABS: BUN Creatinine Ratio 37.5 (10-20); Calcium 8.1 mg/dl (8.5-10.1); Creatinine Clr Calc Pharmacy 101.4 ml/min; Est GFR (African American) 111.4 ml/min; Est GFR (Non-African American) 96.1 ml/min; Potassium 3.6 mmol/L (3.5-5.1)
--- NOTE | 2021-07-26 17:39 | Hospitalist Progress Note ---
Date of Service July 26, 2021 Assessment & Plan (1) Ventricular tachycardia: Plan: David Dailey is a 60-year-old male with a past medical history of CHF, REGIS, BPH, rheumatoid arthro-, atrial letter, cervical spine fracture, and paraplegia who presented to the emergency department with shortness of breath and brief syncope and who is been treated for acute on chronic systolic and diastolic heart failure with hospital course complicated by ventricular tachycardia improved on amiodarone now converted to oral therapy. Summary: Ventricular arrhythmia improved following second load with amiodarone, will continue oral amnio and discontinued telemetry as noted following discussion with cardiology. Patient is chronically ill with multiple comorbidities, but is not a surgical candidate for these per evaluations as noted. Recommend observing patient status overnight and observing following transition to oral amiodarone, he remained stable recommend proceeding with disposition planning. Must return to a facility and is not allowed to return to apartment per court order via the office of aging, case management to check with [facility] for placement. Patient expresses concerns regarding discharge, and expresses a preference to be discharged home but he is not able to relate a safe care plan for how he will self-care at home, and relate the risk of discharge home to his current medical condition and prior admission. Case management working with office of aging, multiple referrals placed. [facility] with no beds until next week, and [facility] reviewing information, additional referrals to [facility], and [facility] have been sent. Ventricular tachycardia 2/2 cardiomyopathy Substantial V. tach burden over the weekend, resolved following reload with amiodarone Continue p.o. amiodarone 200 mg twice daily Discussed with cardiology, given resolution and asymptomatic status with poor candidate for any other treatments and not being a surgical candidate will continue amiodarone, discontinue telemetry - prior digoxcin d/sharmila - K goal 4.0, Mg 2.0 (2) Acute on chronic combined systolic (congestive) and diastolic (congestive) heart failure: Plan: -appears compensated - Unclear etiology of O2 requirement - Consider ILD from "rheumatoid lung", pulm HTN, high res CT for f/u - BB as above - Continue lisinopril 5mg daily - Fluid balance near euvolemic (3) Altered mental status: Plan: resolved (4) Open wound of heel: Plan: - L heel. - Pressure ulcer due to severe contractures & bedbound status. - Wound care following. - Recent culture with pseudomonas (pansensitive) and MRSA. s/p 7 day course of abx for each pathogen earlier this stay. - Recent MRI with no obvious osteomyelitis. - Seen by Dr Saba, orthopedics - ongoing wound care advised. - Nursing attempted waffle boots earlier this week but unable due to contractures. - cont local wound care. (5) Acute respiratory failure with hypoxia: Plan: -2nd acute/chronic CHF. -Possible small subsegmental RUL PE on recent CTA unlikely to be clinically significant -Has been aggressively diuresed throughout his stay and O2 sats have been stable for several days. - Continue eliquis for a.fib/PEs. -weaned to room air 07/26 appears near dry weight. Cautious overdiuresis against history of tachyarrhythmia. (6) Afib: Plan: Permanent A. fib Rate control with metoprolol as noted otherwise Digoxin stopped as noted Amiodarone adjusted as noted for ventricular tachycardia Continue Eliquis Continue telemetry (7) Pleural effusion: Plan: -Secondary to CHF, severe hypoalbuminemia, etc. -O2 sats stable -recent TSH in May wnl. -creatinine wnl. -no liver disease. 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 -Recent MRI showed chronic nonunited type II odontoid fracture consistent with unstable fx and mild displacement of odontoid tip with central canal narrowing at C1 level, progressive marrow edema at C1-C2 levels, and cervical spinal sten osis and neuroforaminal stenosis -throughout the cervical spine. -Dr Hassan saw earlier in June -- poor surgical candidate.Would need surgical repair at tertiary care care. Uncertain, given his numerous comorbidities and bed-bound status, if surgery would even be an option for him. - Cont soft collar with transfers and movements - if he will comply (most days he will not wear). -07/[address] c-[address] CT unchanged from prior imaging. -Paraplegia/contracture differential includes C-spine fracture canal compromise (9) Bacteremia: Plan: -MSSA bacteremia - s/p 6 weeks of Rx with ancef IV (to cover for possibility of SBE as echo was neg for vegetations but high suspicion for SBE). completed the course earlier in the stay. (10) Joint contracture of left lower leg: Plan: Differential includes cervical stenosis/impingement Continue baclofen 5 mg a.m., 5 mg afternoon, 10 mg nightly (11) Hypoalbuminemia: Plan: Nutrition consulted Cont protein/diet supplements. Continue MVI, vit C, zinc. Continue high-dose thiamine 200 mg twice daily Gluten-free diet Appetite improving/improved (12) Restless leg syndrome: Plan: -Continue ropinirole 2 PO BID (13) Anemia: Plan: -Recent trans-sat was <20%. -Overall his iron studies are most c/w anemia of chronic disease with element of Fe deficiency as well. -H/H stable for numerous days in a row without any overt GI bleeding. Heme neg stool. - Venofer 300mg daily x 3 days on 06/22, 06/23, and 06/24. 200mg also given on 07/03. -CBC every 48 hours (14) Rheumatoid arthritis: Plan: -Takes etanercept chronically. -Last dose uncertain. -[facility] to bring over a dose 07/22. Will verify, may give 07/23 and call to have weekly dose brought at this time -Per pharmacy verification patient had NOT received any Enbrel over his last few hospital stays. -Started prednisone 40mg daily on 07/15 for active RA. Symptomatically improved, continue 30 mg dose until 07/26, followed by 20 mg x 1 week, followed by 10 mg for 1 week -Follows w/ rheum in [place]. Consider high-resolution CT scan for pulmonary involvement of rheumatoid (15) Hypomagnesemia: Plan: -resolved (16) Severe protein-calorie malnutrition: Plan: -see hypoalbuminemia above -Continue multivitamin, vitamin supplementation and encouraging diet. Diet overall improving May consider boost if needed Celiac labs pending (17) DVT prophylaxis: Plan: Continue Eliquis (18) Paraplegia: Plan: Acquired. Unclear etiology. Potentially related to C-spine fracture/spine compression, MRI spine shows Redemonstration of the chronic nonunited type II odontoid fracture. This is consistent with an unstable fracture. There remains mild anterior displacement of the odontoid tip resulting in moderate to severe central canal narrowing at the C1 level. No marrow edema identified within the cervical spinal cord at this time. Progressive marrow edema at the C1-C2 levels. This is nonspecific and could be due to the chronic instability. No definite acute fractures identified. -Case previously discussed with with ortho/spine spine, patient not a surgical candidate/poor surgical candidate (19) Discharge planning issues: Plan: -Appreciate palliative care, patient expresses understanding of his medical condition but desire for full code including CPR understanding this could be complicated given his comorbidities especially with his cervical fracture. Expresses understanding, affirms full code. Palliative care signed off -Per prior provider Dr. Longoria experience "Insight very poor, however, and I don't think he understands the complexities of his current health status." Agree with this assessment. -Has POLST on file indicating full code, all measures, etc. -He has no family to contact to give update to. -social work heavily involved in his complex care. -he will return to [facility] at discharge under a court order via the Office of Aging, if bed at [facility] unavailable patient may require placement in a different facility and discussion with office of aging regarding court order. (patient often asks to return to an apartment post-d/c which is simply not possible given his current status; he cannot care for himself) (20) Pressure ulcer: Plan: - L buttock/sacral pressure ulcer ~grade II with concern for surrounding davis - + Nystatin powder - Pressure ulcer care, position change, gel dressing as needed Admission and Anticipated Discharge Date Admission Date: June 20, 2021 Subjective Updated patient continuing to look at placement referrals and that he is not safe for discharge home at this time. No new symptoms/questions concerns. Per nursing report pt intermittently with some confusion (thinking breakfast was a dinnertime) waxing and waning consistent with delerium. Review of Systems Review of Systems: Negative except as noted in HPI Physical Exam Physical Exam: General: A&Ox3. NAD. Cooperative. HEENT: Atraumatic, normocephalic. Pupils equal and reactive to light and accommodation. Pulm: Bibasilar crackles, no overt rales symmetrical chest rise. No increase work of breathing. No respiratory distress. Cardiac: RRR, -mrg. Radial pulses intact and symmetrical. Abdominal: Nontender, nondistended, soft. BS present. Extremities: Extremities contracted to flexion position, hypertonic. 2+ edema bilaterally. PT pulse intact bilaterally. Wounds: Left foot 2 mm ulcer without overlying tenderness, warmth, discharge. Sacral stage II ulceration, improved from prior. No discharge/exudate. Results & Data Results & Data ([facility]) Vital Signs (Past 12 Hours) Vital Signs Temp Pulse Pulse Resp BP Pulse Ox 07/26/21 16:57 94 07/26/21 16:01 36.6 C 89 18 158/97 H 96 07/26/21 07:25 36.7 C 87 20 167/81 H 97 PG Care Time/CCT Total # of Minutes Spent Total Time Spent with Patient: Total time spent is greater than 50% in coordination of care (as documented) at patient's floor/unit and/or counseling patient: Coding Level of Care Code 98808 Subseq Hosp Care Lvl 2 Diagnoses Ventricular tachycardia I47.2 Acute on chronic combined systolic (congestive) and diastolic (congestive) heart failure I50.43 Altered mental status R41.82 Open wound of heel S91.309A Acute respiratory failure with hypoxia J96.01 Afib I48.91 Pleural effusion J90 Cervical spine fracture S12.9XXA Bacteremia R78.81 Joint contracture of left lower leg M24.562 Hypoalbuminemia E88.09 Restless leg syndrome G25.81 Anemia D64.9 Rheumatoid arthritis M06.9 Rheumatoid arthritis location: unspecified site Rheumatoid factor presence: unspecified presence Hypomagnesemia E83.42 Severe protein-calorie malnutrition E43 DVT prophylaxis Z29.9 Paraplegia G82.20 Discharge planning issues Z02.9 Pressure ulcer L89.90 (1) Rheumatoid arthritis Rheumatoid arthritis location: unspecified site Rheumatoid factor presence: unspecified presence Qualified Code(s): M06.9 - Rheumatoid arthritis, unspecified
[2021-07-27 06:00] LABS: Eosinophils # (auto) 0.02 K/uL (0-0.5); Eosinophils % (auto) 0.3 %; Hematocrit (blood only) 32.8 % (42-52); Immature Granulocytes # (auto) 0.05 K/uL (0.00-0.02); Immature Granulocytes % (auto) 0.7 %; Lymphocytes # (auto) 1.73 K/uL (1.2-3.4); Lymphocytes % (auto) 23.2 %; Mean Corpuscular Hemoglobin 25.8 pg (25-34); Mean Corpuscular Hgb Conc 30.5 g/dL (32-36); Mean Corpuscular Volume 84.5 fL (80-100); Mean Platelet Volume 8.9 fL (7.4-10.4); Monocytes # (auto) 0.35 K/uL (0.11-0.59); Monocytes % (auto) 4.7 %; Neutrophils % (auto) 71.1 %; Platelet Count 380 K/uL (130-400); RDW Coefficient of Variation 22.2 % (11.5-14.5); RDW Standard Deviation 68.2 fL (36.4-46.3); Red Blood Count 3.88 M/uL (4.7-6.1); White Blood Count 7.45 K/uL (4.8-10.8)
[2021-07-27 06:25] LABS: BUN Creatinine Ratio 45.8 (10-20); Calcium 8.1 mg/dl (8.5-10.1); Est GFR (Non-African American) 100.1 ml/min; Potassium 3.8 mmol/L (3.5-5.1)
[2021-07-27] MEDS: BACLOFEN 10 MG TAB PO SCH ×3 (06:41→20:07)
[2021-07-27 06:59] LABS: Anisocytosis Present; Poikilocytosis Present
[2021-07-27] MEDS: APIXABAN 5 MG TABLET PO SCH ×2 (08:10→20:06)
[2021-07-27] MEDS: rOPINIRole HCL 1 MG TABLET PO SCH ×2 (08:10→20:07)
[2021-07-27] MEDS: FERROUS SULFATE 325 MG TAB PO SCH ×2 (08:12→16:25)
[2021-07-27] MEDS: AMIODARONE 200 MG TAB PO SCH ×2 (08:12→16:25)
[2021-07-27] MEDS: ASCORBIC ACID 500 MG TAB PO SCH ×2 (08:12→20:06)
[2021-07-27] MEDS: METOPROLOL SUCC 50MG EXT REL TAB PO SCH (08:12)
[2021-07-27] MEDS: ZINC SULFATE 220 MG CAPSULE PO SCH (08:12)
[2021-07-27] MEDS: lisinopril 10 MG TAB PO SCH (08:13)
[2021-07-27] MEDS: CEROVITE ADV FORMULA TAB PO SCH (08:13)
[2021-07-27] MEDS: predniSONE 10 MG TABLET PO SCH (08:13)
[2021-07-27] MEDS: NYSTATIN POWDER 15GM BTL EXT SCH ×3 (08:14→20:06)
[2021-07-27] MEDS: THIAMINE HCL 200 MG in SODIUM CHLORIDE 0.9% 50 ML IV SCH ×2 (08:14→20:02)
[2021-07-27 11:12] LABS: Appearance Urine Clear (Clear); Bilirubin Urine Negative (Negative); Blood Urine Negative (Negative); Color Urine Yellow; Glucose Urine UA Negative (Negative); Ketones Urine Negative (Negative); Leukocyte Esterase Urine Negative (Negative); Nitrite Urine Negative (Negative); Protein Urine Negative (Negative); Specific Gravity Urine 1.011 (1.000-1.030); Urobilinogen Urine Negative (Negative); pH Urine 7.5 (4.5-7.5)
[2021-07-27] MEDS: diphenhydrAMINE Capsule 25 MG CAP PO PRN ×2 (11:16→20:01)
--- NOTE | 2021-07-27 13:58 | Hospitalist Progress Note ---
Date of Service July 27, 2021 Assessment & Plan (1) Ventricular tachycardia: Plan: David Dailey is a 60-year-old male with a past medical history of CHF, REGIS, BPH, rheumatoid arthro-, atrial letter, cervical spine fracture, and paraplegia who presented to the emergency department with shortness of breath and brief syncope and who is been treated for acute on chronic systolic and diastolic heart failure with hospital course complicated by ventricular tachycardia improved on amiodarone now converted to oral therapy. Summary: Ventricular arrhythmia improved following second load with amiodarone, will continue oral amnio and discontinued telemetry as noted following discussion with cardiology. Patient is chronically ill with multiple comorbidities, but is not a surgical candidate for these per evaluations as noted. Recommend observing patient status overnight and observing following transition to oral amiodarone, he remained stable recommend proceeding with disposition planning. Must return to a facility and is not allowed to return to apartment per court order via the office of aging, case management to check with [facility] for placement. Patient expresses concerns regarding discharge, and expresses a preference to be discharged home but he is not able to relate a safe care plan for how he will self-care at home, and relate the risk of discharge home to his current medical condition and prior admission. Case management working with office of aging, multiple referrals placed. [facility] with no beds until next week, and [facility] reviewing information, additional referrals to [facility] and [facility] have been sent. Ventricular tachycardia 2/2 cardiomyopathy Substantial V. tach burden over the weekend, resolved following reload with amiodarone Continue p.o. amiodarone 200 mg twice daily Discussed with cardiology, given resolution and asymptomatic status with poor candidate for any other treatments and not being a surgical candidate will continue amiodarone, discontinue telemetry - prior digoxin d/sharmila - K goal 4.0, Mg 2.0 (2) Acute on chronic combined systolic (congestive) and diastolic (congestive) heart failure: Plan: -appears compensated - Unclear etiology of O2 requirement - Consider ILD from "rheumatoid lung", pulm HTN, high res CT for f/u - BB as above - Continue lisinopril 5mg daily - Fluid balance near euvolemic (3) Altered mental status: Plan: resolved (4) Open wound of heel: Plan: - L heel. - Pressure ulcer due to severe contractures & bedbound status. - Wound care following. - Recent culture with pseudomonas (pansensitive) and MRSA. s/p 7 day course of abx for each pathogen earlier this stay. - Recent MRI with no obvious osteomyelitis. - Seen by Dr Saba, orthopedics - ongoing wound care advised. - Nursing attempted waffle boots earlier this week but unable due to contractures. - cont local wound care. (5) Acute respiratory failure with hypoxia: Plan: -2nd acute/chronic CHF. -Possible small subsegmental RUL PE on recent CTA unlikely to be clinically significant -Has been aggressively diuresed throughout his stay and O2 sats have been stable for several days. - Continue eliquis for a.fib/PEs. -weaned to room air 07/26 appears near dry weight. Cautious overdiuresis against history of tachyarrhythmia. (6) Afib: Plan: Permanent A. fib Rate control with metoprolol as noted otherwise Digoxin stopped as noted Amiodarone adjusted as noted for ventricular tachycardia Continue Eliquis Continue telemetry (7) Pleural effusion: Plan: -Secondary to CHF, severe hypoalbuminemia, etc. -O2 sats stable -recent TSH in May wnl. -creatinine wnl. -no liver disease. 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 -Recent MRI showed chronic nonunited type II odontoid fracture consistent with unstable fx and mild displacement of odontoid tip with central canal narrowing at C1 level, progressive marrow edema at C1-C2 levels, and cervical spinal yeni nosis and neuroforaminal stenosis -throughout the cervical spine. -Dr Hassan saw earlier in June -- poor surgical candidate.Would need surgical repair at tertiary care care. Uncertain, given his numerous comorbidities and bed-bound status, if surgery would even be an option for him. - Cont soft collar with transfers and movements - if he will comply (most days he will not wear). -07/06 c-spine CT unchanged from prior imaging. -Paraplegia/contracture differential includes C-spine fracture canal compromise (9) Bacteremia: Plan: -MSSA bacteremia - s/p 6 weeks of Rx with ancef IV (to cover for possibility of SBE as echo was neg for vegetations but high suspicion for SBE). completed the course earlier in the stay. (10) Joint contracture of left lower leg: Plan: Differential includes cervical stenosis/impingement Continue baclofen 5 mg a.m., 5 mg afternoon, 10 mg nightly (11) Hypoalbuminemia: Plan: Nutrition consulted Cont protein/diet supplements. Continue MVI, vit C, zinc. Continue high-dose thiamine 200 mg twice daily Gluten-free diet Appetite improving/improved (12) Restless leg syndrome: Plan: -Continue ropinirole 2 PO BID (13) Anemia: Plan: -Recent trans-sat was <20%. -Overall his iron studies are most c/w anemia of chronic disease with element of Fe deficiency as well. -H/H stable for numerous days in a row without any overt GI bleeding. Heme neg stool. - Venofer 300mg daily x 3 days on 06/22, 06/23, and 06/24. 200mg also given on 07/03. -CBC every 48 hours (14) Rheumatoid arthritis: Plan: -Takes etanercept chronically. -Last dose uncertain. -[facility] to bring over a dose 07/22. Will verify, may give 07/23 and call to have weekly dose brought at this time -Per pharmacy verification patient had NOT received any Enbrel over his last few hospital stays. -Started prednisone 40mg daily on 07/15 for active RA. Symptomatically improved, continue 30 mg dose until 07/26, followed by 20 mg x 1 week, followed by 10 mg for 1 week -Follows w/ rheum in [place]. Consider high-resolution CT scan for pulmonary involvement of rheumatoid (15) Hypomagnesemia: Plan: -resolved (16) Severe protein-calorie malnutrition: Plan: -see hypoalbuminemia above -Continue multivitamin, vitamin supplementation and encouraging diet. Diet overall improving May consider boost if needed Celiac labs pending (17) DVT prophylaxis: Plan: Continue Eliquis (18) Paraplegia: Plan: Acquired. Unclear etiology. Potentially related to C-spine fracture/spine compression, MRI spine shows Redemonstration of the chronic nonunited type II odontoid fracture. This is consistent with an unstable fracture. There remains mild anterior displacement of the odontoid tip resulting in moderate to severe central canal narrowing at the C1 level. No marrow edema identified within the cervical spinal cord at this time. Progressive marrow edema at the C1-C2 levels. This is nonspecific and could be due to the chronic instability. No definite acute fractures identified. -Case previously discussed with with ortho/spine spine, patient not a surgical candidate/poor surgical candidate (19) Discharge planning issues: Plan: -Appreciate palliative care, patient expresses understanding of his medical condition but desire for full code including CPR understanding this could be complicated given his comorbidities especially with his cervical fracture. Expresses understanding, affirms full code. Palliative care signed off -Per prior provider Dr. Longoria experience "Insight very poor, however, and I don't think he understands the complexities of his current health status." Agree with this assessment. -Has POLST on file indicating full code, all measures, etc. -He has no family to contact to give update to. -social work heavily involved in his complex care. -he will return to [facility] at discharge under a court order via the Office of Aging, if bed at [facility] unavailable patient may require placement in a different facility and discussion with office of aging regarding court order. (patient often asks to return to an apartment post-d/c which is simply not possible given his current status; he cannot care for himself) (20) Pressure ulcer: Plan: - L buttock/sacral pressure ulcer ~grade II with concern for surrounding davis - + Nystatin powder - Pressure ulcer care, position change, gel dressing as needed - greatly improved with positional care and nystatin Admission and Anticipated Discharge Date Admission Date: June 20, 2021 Subjective Updated patient continuing to look at placement referrals and that he is not safe for discharge home at this time. No new symptoms/questions concerns. No delirium appreciated overnight or this morning. Pt aware multiple referrals pending. Review of Systems Review of Systems: Negative except as noted in HPI Physical Exam Physical Exam: General: A&Ox3. NAD. Cooperative. HEENT: Atraumatic, normocephalic. Pupils equal and reactive to light and accommodation. Pulm: Bibasilar crackles, no overt rales symmetrical chest rise. No increase work of breathing. No respiratory distress. Cardiac: RRR, -mrg. Radial pulses intact and symmetrical. Abdominal: Nontender, nondistended, soft. BS present. Extremities: Extremities contracted to flexion position, hypertonic. 2+ edema bilaterally. PT pulse intact bilaterally. Wounds: Left foot 2 mm ulcer without overlying tenderness, warmth, discharge. Sacral stage II ulceration,continuing to improve. No discharge/exudate. Results & Data Results & Data ([facility]) Vital Signs (Past 12 Hours) Vital Signs Temp Pulse Resp BP Pulse Ox 07/27/21 06:07 36.3 C L 58 L 17 149/78 H 99 PG Care Time/CCT Total # of Minutes Spent Total Time Spent with Patient: Total time spent is greater than 50% in coordination of care (as documented) at patient's floor/unit and/or counseling patient: Coding Level of Care Code 53421 Subseq Hosp Care Lvl 2 Diagnoses Ventricular tachycardia I47.2 Acute on chronic combined systolic (congestive) and diastolic (congestive) heart failure I50.43 Altered mental status R41.82 Open wound of heel S91.309A Acute respiratory failure with hypoxia J96.01 Afib I48.91 Pleural effusion J90 Cervical spine fracture S12.9XXA Bacteremia R78.81 Joint contracture of left lower leg M24.562 Hypoalbuminemia E88.09 Restless leg syndrome G25.81 Anemia D64.9 Rheumatoid arthritis M06.9 Rheumatoid arthritis location: unspecified site Rheumatoid factor presence: unspecified presence Hypomagnesemia E83.42 Severe protein-calorie malnutrition E43 DVT prophylaxis Z29.9 Paraplegia G82.20 Discharge planning issues Z02.9 Pressure ulcer L89.90 (1) Rheumatoid arthritis Rheumatoid arthritis location: unspecified site Rheumatoid factor presence: unspecified presence Qualified Code(s): M06.9 - Rheumatoid arthritis, unspecified
[2021-07-28] MEDS: BACLOFEN 10 MG TAB PO SCH ×4 (03:45→20:07)
[2021-07-28] MEDS: diphenhydrAMINE Capsule 25 MG CAP PO PRN ×3 (03:45→22:00)
[2021-07-28] MEDS: FERROUS SULFATE 325 MG TAB PO SCH ×2 (08:08→15:47)
[2021-07-28] MEDS: APIXABAN 5 MG TABLET PO SCH ×2 (08:08→20:08)
[2021-07-28] MEDS: rOPINIRole HCL 1 MG TABLET PO SCH ×2 (08:08→20:07)
[2021-07-28] MEDS: ASCORBIC ACID 500 MG TAB PO SCH ×2 (08:08→20:08)
[2021-07-28] MEDS: AMIODARONE 200 MG TAB PO SCH ×2 (08:08→15:47)
[2021-07-28] MEDS: CEROVITE ADV FORMULA TAB PO SCH (08:12)
[2021-07-28] MEDS: ZINC SULFATE 220 MG CAPSULE PO SCH (08:12)
[2021-07-28] MEDS: THIAMINE HCL 200 MG in SODIUM CHLORIDE 0.9% 50 ML IV SCH ×2 (08:12→20:14)
[2021-07-28] MEDS: predniSONE 20 MG TAB PO SCH (08:12)
[2021-07-28] MEDS: METOPROLOL SUCC 50MG EXT REL TAB PO SCH (08:14)
[2021-07-28] MEDS: lisinopril 10 MG TAB PO SCH (08:15)
[2021-07-28] MEDS: NYSTATIN POWDER 15GM BTL EXT SCH ×3 (08:35→20:08)
[2021-07-28] MEDS ORDERED: bisacodyL 5 MG TABEC PO PRN (10:07)
[2021-07-28] MEDS ORDERED: bisacodyL 10 MG SUPP PR PRN (10:07)
--- NOTE | 2021-07-28 12:32 | Hospitalist Progress Note ---
Date of Service July 28, 2021 Assessment & Plan (1) Ventricular tachycardia: Plan: David Dailey is a 60-year-old male with a past medical history of CHF, REGIS, BPH, rheumatoid arthro-, atrial letter, cervical spine fracture, and paraplegia who presented to the emergency department with shortness of breath and brief syncope and who is been treated for acute on chronic systolic and diastolic heart failure with hospital course complicated by ventricular tachycardia improved on amiodarone now converted to oral therapy. Summary: Ventricular arrhythmia improved following second load with amiodarone, will continue oral amnio and discontinued telemetry as noted following discussion with cardiology. Patient is chronically ill with multiple comorbidities, but is not a surgical candidate for these per evaluations as noted. Recommend observing patient status overnight and observing following transition to oral amiodarone, he remained stable recommend proceeding with disposition planning. Must return to a facility and is not allowed to return to apartment per court order via the office of aging, case management to check with [facility] for placement. Patient expresses concerns regarding discharge, and expresses a preference to be discharged home but he is not able to relate a safe care plan for how he will self-care at home, and relate the risk of discharge home to his current medical condition and prior admission. Case management working with office of aging, multiple referrals placed. [facility] with no beds until next week, and [facility] reviewing information, additional referrals to [facility], and [facility] have been sent. Ventricular tachycardia 2/2 cardiomyopathy Substantial V. tach burden over the weekend, resolved following reload with amiodarone Continue p.o. amiodarone 200 mg twice daily Discussed with cardiology, given resolution and asymptomatic status with poor candidate for any other treatments and not being a surgical candidate will continue amiodarone, discontinue telemetry - prior digoxin d/sharmila - K goal 4.0, Mg 2.0 (2) Acute on chronic combined systolic (congestive) and diastolic (congestive) heart failure: Plan: -appears compensated - Unclear etiology of O2 requirement - Consider ILD from "rheumatoid lung", pulm HTN, high res CT for f/u - BB as above - Continue lisinopril 5mg daily - Fluid balance near euvolemic (3) Altered mental status: Plan: resolved (4) Open wound of heel: Plan: - L heel. - Pressure ulcer due to severe contractures & bedbound status. - Wound care following. - Recent culture with pseudomonas (pansensitive) and MRSA. s/p 7 day course of abx for each pathogen earlier this stay. - Recent MRI with no obvious osteomyelitis. - Seen by Dr Saba, orthopedics - ongoing wound care advised. - Nursing attempted waffle boots earlier this week but unable due to contractures. - cont local wound care. (5) Acute respiratory failure with hypoxia: Plan: -2nd acute/chronic CHF. -Possible small subsegmental RUL PE on recent CTA unlikely to be clinically significant -Has been aggressively diuresed throughout his stay and O2 sats have been stable for several days. - Continue eliquis for a.fib/PEs. -weaned to room air 07/26 appears near dry weight. Cautious overdiuresis against history of tachyarrhythmia. (6) Afib: Plan: Permanent A. fib Rate control with metoprolol as noted otherwise Digoxin stopped as noted Amiodarone adjusted as noted for ventricular tachycardia Continue Eliquis Continue telemetry (7) Pleural effusion: Plan: -Secondary to CHF, severe hypoalbuminemia, etc. -O2 sats stable -recent TSH in May wnl. -creatinine wnl. -no liver disease. 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 -Recent MRI showed chronic nonunited type II odontoid fracture consistent with unstable fx and mild displacement of odontoid tip with central canal narrowing at C1 level, progressive marrow edema at C1-C2 levels, and cervical spinal yeni nosis and neuroforaminal stenosis -throughout the cervical spine. -Dr Hassan saw earlier in June -- poor surgical candidate.Would need surgical repair at tertiary care care. Uncertain, given his numerous comorbidities and bed-bound status, if surgery would even be an option for him. - Cont soft collar with transfers and movements - if he will comply (most days he will not wear). -07/[address] c-[address] CT unchanged from prior imaging. -Paraplegia/contracture differential includes C-spine fracture canal compromise (9) Bacteremia: Plan: -MSSA bacteremia - s/p 6 weeks of Rx with ancef IV (to cover for possibility of SBE as echo was neg for vegetations but high suspicion for SBE). completed the course earlier in the stay. (10) Joint contracture of left lower leg: Plan: Differential includes cervical stenosis/impingement Continue baclofen 5 mg a.m., 5 mg afternoon, 10 mg nightly (11) Hypoalbuminemia: Plan: Nutrition consulted Cont protein/diet supplements. Continue MVI, vit C, zinc. Continue high-dose thiamine 200 mg twice daily Gluten-free diet Appetite improving/improved (12) Restless leg syndrome: Plan: -Continue ropinirole 2 PO BID (13) Anemia: Plan: -Recent trans-sat was <20%. -Overall his iron studies are most c/w anemia of chronic disease with element of Fe deficiency as well. -H/H stable for numerous days in a row without any overt GI bleeding. Heme neg stool. - Venofer 300mg daily x 3 days on 06/22, 06/23, and 06/24. 200mg also given on 07/03. -CBC every 48 hours (14) Rheumatoid arthritis: Plan: -Takes etanercept chronically. -Last dose uncertain. -[facility] to bring over a dose 07/22. Will verify, may give 07/23 and call to have weekly dose brought at this time -Per pharmacy verification patient had NOT received any Enbrel over his last few hospital stays. -Started prednisone 40mg daily on 07/15 for active RA. Symptomatically improved, continue 30 mg dose until 07/26, followed by 20 mg x 1 week, followed by 10 mg for 1 week -Follows w/ rheum in [place]. Consider high-resolution CT scan for pulmonary involvement of rheumatoid (15) Hypomagnesemia: Plan: -resolved (16) Severe protein-calorie malnutrition: Plan: -see hypoalbuminemia above -Continue multivitamin, vitamin supplementation and encouraging diet. Diet overall improving May consider boost if needed Celiac labs pending (17) DVT prophylaxis: Plan: Continue Eliquis (18) Paraplegia: Plan: Acquired. Unclear etiology. Potentially related to C-spine fracture/spine compression, MRI spine shows Redemonstration of the chronic nonunited type II odontoid fracture. This is consistent with an unstable fracture. There remains mild anterior displacement of the odontoid tip resulting in moderate to severe central canal narrowing at the C1 level. No marrow edema identified within the cervical spinal cord at this time. Progressive marrow edema at the C1-C2 levels. This is nonspecific and could be due to the chronic instability. No definite acute fractures identified. -Case previously discussed with with ortho/spine spine, patient not a surgical candidate/poor surgical candidate (19) Discharge planning issues: Plan: -Appreciate palliative care, patient expresses understanding of his medical condition but desire for full code including CPR understanding this could be complicated given his comorbidities especially with his cervical fracture. Expresses understanding, affirms full code. Palliative care signed off -Per prior provider Dr. Longoria experience "Insight very poor, however, and I don't think he understands the complexities of his current health status." Agree with this assessment. -Has POLST on file indicating full code, all measures, etc. -He has no family to contact to give update to. -social work heavily involved in his complex care. -he will return to [facility] at discharge under a court order via the Office of Aging, if bed at [facility] unavailable patient may require placement in a different facility and discussion with office of aging regarding court order. (patient often asks to return to an apartment post-d/c which is simply not possible given his current status; he cannot care for himself) (20) Pressure ulcer: Plan: - L buttock/sacral pressure ulcer ~grade II with concern for surrounding davis - + Nystatin powder - Pressure ulcer care, position change, gel dressing as needed - greatly improved with positional care and nystatin (21) Constipation: Plan: MiraLAX once daily Bas[place] As needed bisacodyl p.o. first-line, bisacodyl [place] if ineffective or at patient preference Follow clinically Admission and Anticipated Discharge Date Admission Date: June 20, 2021 Subjective Continues to have some improving sacral pain. Awarer pending placement referral reviews. Urinating OK 1x incontinence. Pt feels constipated, would like additional bowel meds. No other questions/concerns at assessment Review of Systems Review of Systems: Negative except as noted in HPI Physical Exam Physical Exam: General: A&Ox3. NAD. Cooperative. HEENT: Atraumatic, normocephalic. Visual acuity grossly intact Pulm:no overt rales symmetrical chest rise. No increase in work of breathing. No respiratory distress. Cardiac: RRR, -mrg. Radial pulses intact and symmetrical. Abdominal: Nontender, nondistended, soft. BS present. Extremities: Extremities contracted to flexion position, hypertonic. 2+ edema bilaterally. PT pulse intact bilaterally. Wounds: Left foot 2 mm ulcer without overlying tenderness, warmth, discharge. Sacral stage II ulceration, improving. No discharge/exudate. Results & Data Results & Data ([facility]) Vital Signs (Past 12 Hours) Vital Signs Temp Pulse Resp BP Pulse Ox 07/28/21 07:55 36.4 C L 88 18 161/79 H 99 PG Care Time/CCT Total # of Minutes Spent Total Time Spent with Patient: Total time spent is greater than 50% in coordination of care (as documented) at patient's floor/unit and/or counseling patient: Coding Level of Care Code 48708 Subseq Hosp Care Lvl 1 Diagnoses Ventricular tachycardia I47.2 Acute on chronic combined systolic (congestive) and diastolic (congestive) heart failure I50.43 Altered mental status R41.82 Open wound of heel S91.309A Acute respiratory failure with hypoxia J96.01 Afib I48.91 Pleural effusion J90 Cervical spine fracture S12.9XXA Bacteremia R78.81 Joint contracture of left lower leg M24.562 Hypoalbuminemia E88.09 Restless leg syndrome G25.81 Anemia D64.9 Rheumatoid arthritis M06.9 Rheumatoid arthritis location: unspecified site Rheumatoid factor presence: unspecified presence Hypomagnesemia E83.42 Severe protein-calorie malnutrition E43 DVT prophylaxis Z29.9 Paraplegia G82.20 Discharge planning issues Z02.9 Pressure ulcer L89.90 Constipation K59.00 (1) Rheumatoid arthritis Rheumatoid arthritis location: unspecified site Rheumatoid factor presence: unspecified presence Qualified Code(s): M06.9 - Rheumatoid arthritis, unspecified
[2021-07-29] MEDS: FERROUS SULFATE 325 MG TAB PO SCH ×2 (08:39→17:41)
[2021-07-29] MEDS: ZINC SULFATE 220 MG CAPSULE PO SCH (08:40)
[2021-07-29] MEDS: AMIODARONE 200 MG TAB PO SCH ×2 (08:40→17:41)
[2021-07-29] MEDS: BACLOFEN 10 MG TAB PO SCH ×4 (08:40→20:55)
[2021-07-29] MEDS: lisinopril 10 MG TAB PO SCH (08:40)
[2021-07-29] MEDS: predniSONE 20 MG TAB PO SCH (08:41)
[2021-07-29] MEDS: METOPROLOL SUCC 50MG EXT REL TAB PO SCH (08:41)
[2021-07-29] MEDS: ASCORBIC ACID 500 MG TAB PO SCH (08:42)
[2021-07-29] MEDS: APIXABAN 5 MG TABLET PO SCH ×2 (08:42→20:54)
[2021-07-29] MEDS: CEROVITE ADV FORMULA TAB PO SCH (08:42)
[2021-07-29] MEDS: POLYETHYLENE (MIRALAX) 17 GM PACK PO SCH (08:43)
[2021-07-29] MEDS: diphenhydrAMINE Capsule 25 MG CAP PO PRN ×2 (08:52→20:53)
[2021-07-29] MEDS ORDERED: amLODIPine BESYLATE 5 MG TAB PO ONE (09:30)
[2021-07-29] MEDS: NYSTATIN POWDER 15GM BTL EXT SCH ×3 (09:34→20:56)
[2021-07-29] MEDS: THIAMINE HCL 200 MG in SODIUM CHLORIDE 0.9% 50 ML IV SCH (09:40)
--- NOTE | 2021-07-29 20:00 | Hospitalist Progress Note ---
Date of Service July 29, 2021 Assessment & Plan (1) Ventricular tachycardia: Plan: remains on amiodarone 200mg BID cont metoprolol succinate 200mg daily previous VT likely due to cardiomyopathy K and Mag have been wnl (2) Acute on chronic combined systolic (congestive) and diastolic (congestive) heart failure: Plan: compensated cont BB cont lisinopril 10mg daily lasix - start 20mg po daily or PRN? needs better BP control (3) Altered mental status: Plan: resolved mental status is at baseline (oriented x 3, but insight severely limited) (4) Open wound of heel: Plan: L heel. Previous culture with pseudomonas and MRSA s/p 7 day course of abx prior. MRI with no obvious osteomyelitis. cont local wound care. offload the heels as tolerated. ulcer stable today. (5) Acute respiratory failure with hypoxia: Plan: resolved. 2nd acute/chronic CHF. 2nd small subsegmental RUL PE on recent CTA (minor roll). patient is off O2. (6) Afib: Plan: permanent. Metoprolol succinate 200mg PO daily. Amiodarone BID. Eliquis 5mg BID. 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 Dr Hassan saw earlier in June -- poor surgical candidate. Would need surgical repair at tertiary care care. Uncertain, given his numerous comorbidities and bed-bound status, if surgery would even be an option for him. Ideally should be wearing a soft collar most times of the day but he declines. 07/[address] c-spine CT unchanged from prior imaging. previous concern that spinal stenosis (as a result of the fracture) is contributing to his paraplegia. (9) Bacteremia: Plan: resolved. MSSA bacteremia - s/p 6 weeks of Rx with ancef IV (to cover for possibility of SBE as echo was neg for vegetations but high suspicion for SBE). completed the course earlier in the summer. (10) Joint contracture of left lower leg: Plan: cont baclofen TID. (11) Hypoalbuminemia: Plan: Previous albumin 1.9. repeat in am. stop zinc; completed 14 days of such. stop vitamin C. convert thiamine from IV to PO. cont MVI, supplements, etc. (12) Restless leg syndrome: Plan: Continue ropinirole 2 PO BID (13) Anemia: Plan: Recent trans-sat was <20%. Overall his iron studies are most c/w anemia of chronic disease with element of Fe deficiency as well. H/H stable for numerous days in a row without any overt GI bleeding. Heme neg stool. Venofer 300mg daily x 3 days on 06/22, 06/23, and 06/24. 200mg also given on 07/03. Repeat cbc am. (14) Rheumatoid arthritis: Plan: Flare markedly improved. Started prednisone 40mg daily on 07/15 for active RA. Now on 20mg daily (20mg dose started 07/28/21). s/p Enbrel 07/22. Due for next dose within 1-2 days. Wean prednisone by 10mg/week. Follows w/ rheum in [place]. Would refer to Dr Locke at [facility] after discharge since patient is now a resident at [facility]. Could he have rheumatoid lung? consider high-res CT at some point. (15) Hypomagnesemia: Plan: resolved (16) Severe protein-calorie malnutrition: Plan: see hypoalbuminemia above TTGs checked for celiac and were negative. Although gluten is on allergy list he likely does not have celiac disease. (17) DVT prophylaxis: Plan: Continue Eliquis (18) Paraplegia: Plan: acquired. 2nd to c-spine fracture?? (19) Essential hypertension: Plan: add norvasc 2.5mg daily increase to 5mg if necessary (20) Discharge planning issues: Plan: s/p palliative care consult earlier this stay- pt refused palliation; full measures desired by patient. He has no family to contact to give update to. Office of aging involved. Court order in place that will prevent patient from going home as he cannot care for himself and lacks insight into his medical conditions. He will return to [facility] at d/c - possibly tomorrow. Admission and Anticipated Discharge Date Admission Date: June 20, 2021 Subjective no issues overnight I confirmed with pharmacy that patient indeed received his Enbrel last 07/22 here at [facility] patient denies any complaints eating fair per staff patient again asks about "going home" he also mentions that if he doesn't get back to his apartment he "will lose the apartment" patient is off O2 with stable O2 sats in room air Review of Systems Review of Systems: gen - c/o fatigue and "wants to sit up" CV - no chest pain pulm - no cough or dyspnea GI - no abd pain, nausea or emesis - incontinence Physical Exam Physical Exam: Gen: awake, alert, oriented x 3 ("[facility]", Thursday, "21" for the year) - but insight continues to be very, very poor Mouth: MMM, no lesions or thrush Neck - no JVD heart - irregular, s1 s2, no murmur Lungs - minimal dry rales bases Abd: soft, BS+, NT, ND, no HSM Neuro: severe contractures of legs; handgrip and arm strength improved from previous exams Ext: trace edema b/l legs; pulses 2+ b/l Musculo: no synovitis of any small joints b/l hands or wrists Skin: left foot heel - tiny ulcer, clean, no drainage Results & Data Results & Data ([facility]) Vital Signs (Past 12 Hours) Vital Signs Temp Pulse Resp BP Pulse Ox 07/29/21 15:45 36.8 C 80 20 162/81 H 96 PG Care Time/CCT Total # of Minutes Spent Total Time Spent with Patient: Total time spent is greater than 50% in coordination of care (as documented) at patient's floor/unit and/or counseling patient: Coding Level of Care Code 41473 Subseq Hosp Care Lvl 3 Diagnoses Ventricular tachycardia I47.2 Acute on chronic combined systolic (congestive) and diastolic (congestive) heart failure I50.43 Altered mental status R41.82 Open wound of heel S91.309A Acute respiratory failure with hypoxia J96.01 Afib I48.91 Pleural effusion J90 Cervical spine fracture S12.9XXA Bacteremia R78.81 Joint contracture of left lower leg M24.562 Hypoalbuminemia E88.09 Restless leg syndrome G25.81 Anemia D64.9 Rheumatoid arthritis M06.9 Rheumatoid arthritis location: unspecified site Rheumatoid factor presence: unspecified presence Hypomagnesemia E83.42 Severe protein-calorie malnutrition E43 DVT prophylaxis Z29.9 Paraplegia G82.20 Discharge planning issues Z02.9 Essential hypertension I10 (1) Rheumatoid arthritis Rheumatoid arthritis location: unspecified site Rheumatoid factor presence: unspecified presence Qualified Code(s): M06.9 - Rheumatoid arthritis, unspecified
[2021-07-29] MEDS: THIAMINE HCL 100 MG TAB PO SCH (20:53)
[2021-07-30] MEDS: traMADol HCL 50 MG TABLET PO PRN (02:44)
[2021-07-30] MEDS ORDERED: BACLOFEN 10 MG TAB PO ONE (02:49)
[2021-07-30] MEDS ORDERED: MoRPHine SULFATE 2 MG/ML CARP IV STA (05:20)
[2021-07-30] MEDS: predniSONE 20 MG TAB PO SCH (08:04)
[2021-07-30] MEDS: FERROUS SULFATE 325 MG TAB PO SCH (08:12)
[2021-07-30] MEDS: CEROVITE ADV FORMULA TAB PO SCH (08:12)
[2021-07-30] MEDS: lisinopril 10 MG TAB PO SCH (08:12)
[2021-07-30] MEDS: AMIODARONE 200 MG TAB PO SCH (08:13)
[2021-07-30] MEDS: APIXABAN 5 MG TABLET PO SCH (08:13)
[2021-07-30] MEDS: BACLOFEN 10 MG TAB PO SCH ×2 (08:13→14:56)
[2021-07-30] MEDS: THIAMINE HCL 100 MG TAB PO SCH (08:13)
[2021-07-30] MEDS: NYSTATIN POWDER 15GM BTL EXT SCH ×2 (08:13→14:56)
[2021-07-30] MEDS: POLYETHYLENE (MIRALAX) 17 GM PACK PO SCH (08:13)
[2021-07-30] MEDS: METOPROLOL SUCC 50MG EXT REL TAB PO SCH (08:13)
[2021-07-30] MEDS ORDERED: amLODIPine BESYLATE 5 MG TAB PO SCH (09:00)
[2021-07-30] MEDS ORDERED: POTASSIUM CHLORIDE CRTAB 20 MEQ TABCR PO SCH (09:00)
[2021-07-30 09:35] LABS: Albumin Level 2.2 gm/dl (3.4-5.0); BUN Creatinine Ratio 62.1 (10-20); Calcium 8.6 mg/dl (8.5-10.1); Est GFR (African American) 121.4 ml/min; Est GFR (Non-African American) 104.8 ml/min; Magnesium 2.5 mg/dl (1.8-2.4); Potassium 3.6 mmol/L (3.5-5.1)
[2021-07-30] MEDS ORDERED: FUROSEMIDE 40 MG TAB PO ONE (10:43)
[2021-07-30] MEDS ORDERED: HYDROCODONE/ACETAMOPHEN 5/325MG TAB PO STA (10:43)
[2021-07-30] MEDS ORDERED: POTASSIUM CHLORIDE CRTAB 20 MEQ TABCR PO STA (10:43)
[2021-07-30] MEDS: DICLOFENAC SOD 1% GEL 100 GM TUBE EXT SCH ×2 (12:12→12:33)
--- NOTE | 2021-07-30 15:52 | Discharge Summary ---
Date of Service date of admission - June 20, 2021 date of discharge - July 30, 2021 Admission HPI Per Admitting Provider 66yo with past medical history of odontoid cervical fracture, atrial flutter, HTN, wheel chair bound, cardiomyopathy, contractures of lower legs, respiratory failure requiring intubation in January 2020. Patient comes to the emergency room today for complains of shortness of breath that occurred while he was assisting his caregiver this morning while rolling on his left side. He said this caused him to pass out for a few seconds. He denies fevers or chills and denies any productive cough. The patient was placed on BiPAP when he arrived to the [facility] although has not been hypoxic since arrival. He does exhibit expiratory wheezes bilaterally and crackles throughout. He is in afib with HR in the 120s and states he has missed several doses of Eliquis. In the [facility] the patient received 1 hour nebulizer while on BiPAP 10/5, hot hypercarbic on VBG and SPO2 on monitor 96-100%, he had routine labs drawn that reveal elevated BNP [id number] and was administered 40 mg IV Lasix. Patient will be admitted to continue to [facility] at [facility] and evaluate pulmonary status. Will obtain CTA of the chest secondary to acute development of dyspnea and missing doses of Eliquis. The patient has a PICC line for completing 6 weeks of ANCEF as on his last admission had persistent blood cultures positive for MSSA and inability to effectively rule out IE with his cervical fracture as above. Patient was being followed by ID, continue for now. Patient has repeat blood cultures at this time. No fevers endorsed and does not appear septic. PICC line is clean and left lower foot wound covered with Keflex, without sign of infection. Principal Diagnosis 1. acute/chronic systolic CHF 2. recurrent ventricular tachycardia s/p initiation of amiodarone 3. acute hypoxic respiratory failure 2nd to #1 4. severe, chronic rheumatoid arthritis 5. acquired paraplegia with upper extremity weakness as well 6. bed-bound status 7. contractures of lower extremities 8. C2 cervical spine fracture - chronic 9. cervical spine stenosis 10. left foot ulceration 11. pericardial effusion 12. atrial fibrillation 13. lack of capacity Discharge Exam Gen: awake, alert, oriented x 3 ("[facility]", Thursday, "21" for the year) - but insight and judgement are severely impaired Mouth: MMM, no lesions or thrush Neck: no JVD heart: irregular, s1 s2, no murmur Lungs: minimal dry rales bases Abd: soft, BS+, NT, ND, no HSM Neuro: severe contractures of legs; handgrip and arm strength improved from previous exams - strength about 3-4/5 Ext: trace edema b/l legs; pulses 2+ b/l Musculo: no synovitis of any small joints b/l hands or wrists; arthritic changes & crepitus of both knees, ankles, etc Skin: left foot (heel) - tiny ulcer, clean, no drainage Psych: oriented x 3, but asking to go home to an apartment Discharge Data Allergies Allergy/AdvReac Type Severity Reaction Status Date / Time gluten AdvReac Verified 07/14/21 17:25 Consultations [facility] [place] [facility] Orthopedic Surgery Palliative Care PT, OT Wound Care Procedures Performed Echocardiogram - * EF 45-50% * mild LVH * inferior base severe hypokinesis * small pericardial effusion - smaller than prior echo; no features of tamponade * no significant valvular disease Ordered Studies Chest X-Ray 06/20/21 11:58 SINGLE VIEW CHEST CLINICAL HISTORY: Sepsis. FINDINGS: 2 AP, portable, upright chest radiographs are compared to study dated 05/11/2021 and correlated with chest CT dated 10/15/2014. The examination is degraded by portable technique and patient rotation. A right PICC line is in place. The tip of the catheter projects over the SVC. The heart is enlarged noting atherosclerotic calcification of the thoracic aorta. There is pulmonary vascular congestion. Bilateral airspace opacities are typical for pulmonary edema. There are layering pleural effusions with bibasilar consolidation. No pneumothorax is seen. The skeletal structures are osteopenic. The bony thorax is grossly intact. Advanced arthritic change is seen in the shoulders. IMPRESSION: 1. Cardiomegaly with evidence of congestive failure. 2. Bilateral airspace opacities are typical for pulmonary edema. Correlate clinically for evidence of superimposed pneumonia. 3. Layering pleural effusions with bibasilar consolidation. 4. A right PICC line is new from previous.. ACT 112: Negative or not required by law. Electronically signed by: Axel Cochran M.D. 06/20/2021 1:39 PM Chest CTA 06/20/21 14:43 CHEST CTA for PULMONARY ARTERIES CT DOSE: 1020.32 mGy.cm HISTORY: Shortness of breath. TECHNIQUE: Multiaxial CT images of the chest were performed following the intravenous administration of contrast to evaluate the pulmonary arteries. Maximal intensity projection images were also obtained. A dose lowering technique was utilized adhering to the principles of ALARA. COMPARISON STUDY: Chest 06/20/2021. FINDINGS: Normal caliber thoracic aorta with no evidence for dissection. There are moderate bilateral pleural effusions and a moderate pericardial effusion. The pericardial effusion demonstrates a maximal diameter of 2.2 cm. Limited views of the upper abdomen demonstrate retrograde opacification of the renal veins. This suggests underlying right-sided heart dysfunction. Nondiagnostic evaluation of the majority of the bilateral lower lobe segmental and subsegmental pulmonary arteries due to the motion artifact and inadequate opacification. The main and lobar pulmonary arteries are patent. Possible filling defect versus motion artifact within a subsegmental right upper lobe pulmonary artery on image 189. No fractures within the visualized osseous structures. Advanced degenerative changes within the bilateral shoulders. The right shoulder is only partially visualized on this study. Severe body wall edema is noted. A right PICC terminates in the distal SVC. Subcentimeter mediastinal and bilateral hilar lymph nodes do not meet CT criteria for pathologic involvement. There are few prominent bilateral axillary lymph nodes with the largest on the right measuring 1.2 cm in short axis diameter. Normal caliber esophagus. Consolidation within the bilateral lower lobes posteriorly are nonspecific but favor compressive atelectasis from the pleural effusions. Narrowing of the bilateral lower lobe bronchi likely due to the compressive atelectasis. The heart is mildly enlarged. IMPRESSION: 1. No evidence for central pulmonary embolus. The distal pulmonary arteries are now well evaluated due to the suboptimal contrast opacification and motion artifact. Possible filling defect versus motion artifact within a subsegmental right upper lobe pulmonary artery. A small pulmonary embolus is considered less likely but not entirely excluded. Consider follow-up lower extremity venous Doppler study to exclude the possibility of a deep vein thrombosis. 2. Moderate bilateral pleural fusions and a moderate pericardial effusion. 3. Consolidation within the lower lobes posteriorly is nonspecific but favors compressive atelectasis from the pleural effusions. A pneumonia could also have a similar appearance. 4. Severe body wall edema. 5. A few borderline enlarged bilateral axillary lymph nodes. 6. Mild cardiomegaly. ACT 112: Negative or not required by law. Electronically signed by: Jacky Morocho M.D. 06/20/2021 4:18 PM Venous Doppler Study 06/21/21 08:58 ULTRASOUND BILATERAL LOWER EXTREMITY VENOUS CLINICAL HISTORY: Abnormal chest CT. Possible pulmonary embolus. COMPARISON STUDY: No priors. TECHNIQUE: Real-time, grayscale, and color Doppler sonography of the deep veins of the right and left lower extremity was performed from the inguinal crease to the calf. Compression and augmentation were utilized. FINDINGS: There is no sonographic evidence of deep venous thrombosis identified in the right or left lower extremity. The common femoral, superficial femoral, and popliteal veins are patent and normally compressible bilaterally. The greater saphenous vein and the profunda femoris vein at the junction with the common femoral vein are clear in both legs. The visualized calf veins are patent bilaterally. IMPRESSION: There is no sonographic evidence of deep venous thrombosis identified in the right or left lower extremity. ACT 112: Negative or not required by law. Electronically signed by: Axel Cochran M.D. 06/21/2021 11:33 AM Cervical Spine MRI 06/21/21 16:32 CERVICAL SPINE MRI HISTORY: odontoid fracture,upper extremity weakness R>L TECHNIQUE: Multiplanar multisequence MRI of the cervical spine was performed without the use of contrast. COMPARISON STUDY: Cervical spine CT 05/11/2021 and cervical spine MRI 05/12/2021. FINDINGS: Bilateral pleural effusions are partially imaged on this study. This is better appreciated on the recent chest CTA. There is mild motion artifact. There is redemonstration of the chronic nondisplaced type II odontoid fracture. There is prevertebral edema from the C1-C4 levels, unchanged. Edema within the muscles posterior to the neck has progressed in the interval. There is also progressive edema within the C1 and C2 vertebral bodies most pronounced on the left. There is 2 mm of anterolisthesis placement of the nonunited odontoid process in relation to the odontoid base. This results in moderate to severe central canal narrowing at the C1 level with mild cord deformity. There are old mild superior endplate compression deformities at T1 and T3, unchanged. The C1- C2 interval remains intact. Mild disc space narrowing throughout the majority of the cervical spine. C2-C3: No significant central canal narrowing. There is mild right and moderate left neural foraminal narrowing. C3-C4: Small broad-based posterior disc osteophyte complex resulting in mild central canal narrowing. There is moderate right and severe left neural foraminal narrowing. C4-C5: Small broad-based posterior disc osteophyte complex asymmetric to the left resulting in mild central canal and moderate bilateral neural foraminal narrowing. C5-C6: Small broad-based posterior disc osteophyte complex with a small left paracentral focal disc protrusion, unchanged. This abuts and slightly deforms the left anterior cord. There is also moderate right and severe left neural foraminal narrowing. C6-C7: Small broad-based posterior disc osteophyte complex resulting in mild central canal narrowing. There is moderate right and severe left neural foraminal narrowing. C7-T1: No significant central canal or neural foraminal narrowing. IMPRESSION: 1. 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 This is consistent with an unstable fracture. There remains mild anterior displacement of the odontoid tip resulting in moderate to severe central canal narrowing at the C1 level. No marrow edema identified within the cervical spinal cord at this time. 2. Progressive marrow edema at the C1-C2 levels. This is nonspecific and could be due to the chronic instability. No definite acute fractures identified. 3. Progressive soft tissue edema within the posterior muscles of the neck suggests a muscular strain. 4. No change in the mild anterior prevertebral edema from C1 through C4. 5. Additional degenerative changes as described above. 6. Old mild superior endplate compression fractures at T1 and T3 are again noted. ACT 112: Negative or not required by law. Electronically signed by: Jacky Morocho M.D. 06/21/2021 9:21 PM Venous Doppler Study 06/21/21 17:49 RIGHT UPPER EXTREMITY VENOUS DOPPLER HISTORY: Right arm edema, r/o DVT,PICC line COMPARISON STUDY: None. FINDINGS: The right internal jugular vein is patent. There is normal flow within the right subclavian vein. There is normal flow and compressibility within the right axillary, basilic, brachial, radial, ulnar, and visualized cephalic veins. A right PICC is identified within the cephalic vein. IMPRESSION: No DVT within the right upper extremity. ACT 112: Negative or not required by law. Electronically signed by: Jacky Morocho M.D. 06/22/2021 8:30 AM Chest X-Ray 06/23/21 07:00 XR chest 1V portable HISTORY: 66 years-old Male Follow-up pleural effusions COMPARISON: CTA chest an chest radiograph 06/20/2021 TECHNIQUE: Portable AP view of the chest FINDINGS: Cardiomegaly with pulmonary edema. Right-sided PICC terminates within the expected location of the mid SVC. No pneumothorax. Mildly decreased size of the layering pleural effusions with persistent bibasilar consolidation. Degenerative changes of the shoulders and spine. IMPRESSION: 1. Cardiomegaly with unchanged pulmonary edema. 2. Mildly decreased size of the layering pleural effusions with persistent bibasilar consolidation. ACT 112: Negative or not required by law. The above report was generated using voice recognition software. It may contain grammatical, syntax or spelling errors. Electronically signed by: Jose Reyes M.D. 06/23/2021 8:17 AM Chest X-Ray 06/27/21 08:00 XR chest 1V portable CLINICAL HISTORY: Reassessment Pleural Effusion COMPARISON STUDY: June 23, 2021 FINDINGS: No pneumothorax. Small bilateral pleural effusion are again seen and unchanged since prior. Hazy opacity at the right mid to lower lung region might represent layering pleural effusion and/or superimposed atelectasis/infiltrate. Stable large dense left retrocardiac opacity is again seen and could also represent atelectasis or infiltrative lesion. Cardiac silhouette is mildly enlarged and stable since prior. Aorta is calcified. Mild pulmonary vascular congestion is seen. Stable position of right-sided PICC line.. Osseous structures: Severe degenerative changes of bilateral shoulders. IMPRESSION: 1. Stable bilateral pleural effusion associated with atelectasis/infiltrate at bilateral bases. 2. Redemonstration of cardiomegaly and mild pulmonary vascular congestion which is unchanged since prior. 3. The rest of findings as above. ACT 112: Negative or not required by law. The above report was generated using voice recognition software. It may contain grammatical, syntax or spelling errors. Electronically signed by: Yessica Clemente DO 06/27/2021 12:09 PM Chest X-Ray 07/01/21 12:19 XR chest 1V portable HISTORY: 66 years-old Male follow up COMPARISON: Chest radiograph 06/27/2021 TECHNIQUE: Portable AP view of the chest FINDINGS: Cardiac silhouette is moderately enlarged. Unchanged positioning of the right- sided PICC. Layering right greater left pleural effusions with bibasilar opacities are redemonstrated, stable to slightly improved from comparison. Pulmonary vascular congestion. Degenerative changes of the shoulders and spine. IMPRESSION: 1. Cardiomegaly with pulmonary vascular congestion. 2. Right greater than left layering pleural effusions with bibasilar opacities appear stable to mildly improved from comparison. 3. Unchanged positioning of the right-sided PICC. ACT 112: Negative or not required by law. The above report was generated using voice recognition software. It may contain grammatical, syntax or spelling errors. Electronically signed by: Jose Reyes M.D. 07/01/2021 1:01 PM Chest X-Ray 07/04/21 07:00 XR chest 1V portable CLINICAL HISTORY: f/u chf COMPARISON STUDY: Chest CT June 20, 2021. Chest radiograph July 01, 2021. FINDINGS: Right PICC is in place. 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 There is no pneumothorax. Pulmonary edema persists. Moderate bilateral pleural effusions with bibasilar opacities are noted. These have slightly increased. Cardiomediastinal silhouette is stable. IMPRESSION: Persistent edema with slight increase in moderate bilateral pleural effusions and associated bibasilar opacities. ACT 112: Negative or not required by law. Electronically signed by: Enzo Patel M.D. 07/04/2021 7:23 AM Foot X-Ray 07/05/21 12:25 XR foot LT 2V CLINICAL HISTORY: R heel pain, wound COMPARISON STUDY: None. FINDINGS: The bones are osteopenic. There is mild diffuse soft tissue swelling within the left foot. There are flexion deformities within the toes with lateral subluxation/dislocation of the second through fifth toes. There is also lateral angulation at the first MTP joint. There is a small soft tissue and bony bunion. Moderate severe degenerative changes seen throughout the left foot. No fractures. No cortical destruction to suggest osteomyelitis. IMPRESSION: 1. No cortical destruction to suggest an osteomyelitis. 2. Diffuse soft tissue swelling within the left foot. 3. Osteopenia and moderate to severe degenerative changes. 4. Flexion deformities with lateral subluxation/dislocation within the toes. This is likely chronic. No fractures. ACT 112: Negative or not required by law. Electronically signed by: Jacky Morocho M.D. 07/05/2021 2:14 PM Chest X-Ray 07/05/21 23:37 SINGLE VIEW CHEST CLINICAL HISTORY: Bradycardia. Hypotension. FINDINGS: An AP, portable, semierect chest radiograph is compared to study dated 07/04/2021. The examination is degraded by portable technique, apical positioning, and patient rotation. A right PICC line is unchanged in position. The heart is enlarged noting atherosclerotic calcification of the thoracic aorta. There is pulmonary vascular congestion. There are layering pleural effusions with bibasilar consolidation. No pneumothorax is seen. The skeletal structures are osteopenic. The bony thorax is grossly intact. Advanced arthritic change is seen in the shoulders. IMPRESSION: 1. Cardiomegaly with evidence of congestive failure. This is similar to yesterday. 2. Layering pleural effusions with bibasilar consolidation. ACT 112: Negative or not required by law. Electronically signed by: Axel Cochran M.D. 07/06/2021 9:[address] 07/06/21 03:35 CT SCAN OF THE CERVICAL SPINE CLINICAL HISTORY: Neck pain. COMPARISON STUDY: CT of the cervical spine dated 05/11/2021 and 10/15/2014. TECHNIQUE: CT scan of the cervical spine is performed from the skull base to the upper thoracic spine. Images are reviewed in the axial, sagittal, and coronal planes. IV contrast was not administered for this examination. A dose lowering technique was utilized adhering to the principles of ALARA. CT DOSE: 333.53 mGy.cm FINDINGS: Skeletal structures: The skeletal structures are well mineralized. 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 There is only 2 mm of offset of the odontoid process with the C2 vertebral body. Advanced productive change is seen at the atlantodental articulation. No acute fracture or subluxation is identified Involving the cervical spine. Vertebral body height and alignment are maintained. Small anterior osteophytes are seen throughout. The odontoid process and lateral masses are intact. The atlantoaxial articulation is preserved. The spinous processes appear intact. There is a chronic superior endplate compression deformity of T1. There is mild to moderate multilevel cervical spondylosis. Uncovertebral and facet arthropathy contribute to neural foraminal stenosis at several levels. A small bone island is incidentally noted in the body of C7. Intervertebral discs: Mild to moderate disc space narrowing is seen at all cervical levels between C3-C4 and C6-C7. Central canal: A posterior disc osteophyte complex at C5-C6 may contribute to acquired compromise of the central canal. Soft tissues: The prevertebral and paraspinous soft tissues are within normal limits. There is atherosclerotic calcification of the carotid bulbs. A right PICC line is noted. Calvarium: The visualized calvarium at the skull base appears intact. Brain parenchyma: Partially visualized brain parenchyma at the skull base is within normal limits. Sinuses and mastoids: The visualized paranasal sinuses are clear. The mastoid air cells are well pneumatized. Lung apices: There are right larger than left pleural effusions. IMPRESSION: 1. There is no evidence of acute fracture or subluxation involving the cervical spine. 2. There is unchanged appearance of a chronic nonunited fracture through the base of the odontoid process versus an os odontoideum. A nonunited fracture is favored. 3. There is only mild offset of the odontoid process with the body of C2, and advanced degenerative change is seen at the atlantodental articulation. 4. Osteopenia and spondylotic change as above. 5. Mild chronic superior endplate compression deformity of T1. 6. Right larger than left pleural effusions. ACT 112: Negative or not required by law. Electronically signed by: Axel Cochran M.D. 07/06/2021 6:54 AM Ankle MRI 07/06/21 15:09 MRI OF THE LEFT ANKLE WITHOUT IV CONTRAST CLINICAL HISTORY: Right heel pain. Wound. COMPARISON STUDY: Radiographs of the left foot dated 07/05/2021. TECHNIQUE: MRI of the left ankle was initiated. Axial T1 and fat sat proton density sequences were obtained. These are significantly motion degraded. The patient then declined further imaging. FINDINGS: A cutaneous ulceration is identified along the dorsolateral aspect of the heel. There is no clear cortical disruption or significant marrow edema within the underlying calcaneus to suggest osteomyelitis on the provided sequences. This is incompletely evaluated. There is no MRI evidence of fracture on the provided images. Degenerative change is noted at the tibiotalar articulation. Soft tissue edema is present throughout the ankle and hindfoot, greatest laterally. There is tendinopathy and paratenonitis of the Achilles tendon which appears intact. There is a split-thickness tear of the peroneus brevis tendon. The anterior and posterior tendons are grossly intact. There is likely chronic tearing of the anterior tibiofibular and talofibular ligaments. There is generalized atrophy and myositis of the regional musculature. IMPRESSION: 1. Significantly motion degraded and incomplete examination. The patient declined further imaging. 2. A large cutaneous wound is seen along the posterolateral aspect of the heel. Surrounding soft tissue edema may represent cellulitis and clinical correlation will be required. 3. There is no clear marrow change or cortical disruption identified in the underlying calcaneus typical for osteomyelitis. This is incompletely assessed. 4. Tendinopathy and paratenonitis of the Achilles tendon. 5. Split-thickness tear of the peroneus brevis tendon. Dictated: 07/06/2021 6:09 PM Transcribed: 07/06/2021 7:15 PM Makayla [id number] [email or web address]_Shanda Electronically signed by: Axel Cochran M.D. 07/06/2021 7:15 PM Chest X-Ray 07/09/21 07:00 XR chest 1V portable CLINICAL HISTORY: hypoxia COMPARISON STUDY: July 05, 2021 FINDINGS: No pneumothorax. Interval worsening/redistribution of bilateral pleural effusion, now appear moderate on the right and small on the left. Interval increase in density of the left retrocardiac opacity which could repre sent atelectasis/infiltrate and pleural effusion. Cardiomediastinal silhouette remains mildly enlarged with interval silhouetting of the right heart border which could be due to opacity/atelectasis of the right middle lobe. Pulmonary vascular congestion is seen.. Osseous structures: Severe degenerative changes of bilateral shoulders. Aortic calcifications are seen. Stable position of the right PICC line. IMPRESSION: 1. Interval worsening/redistribution of bilateral pleural effusion. 2. Atelectasis/infiltrate at bilateral lower lungs. 3. Interval silhouetting of the right heart border which could be due to atelectasis or infiltrate within the right middle lobe. 4. Redemonstration of the large cardiac silhouette and pulmonary vascular congestion. 5. Stable position of the right PICC line. ACT 112: Negative or not required by law. The above report was generated using voice recognition software. It may contain grammatical, syntax or spelling errors. Electronically signed by: Yessica Clemente DO 07/09/2021 12:[address] 07/13/21 10:34 CT head/brain wo/w con CT DOSE: 1074.96 mGy.cm TECHNIQUE: Noncontrast images were obtained through the brain in the axial plane. The sequence was repeated following administration of 94 Optiray. A dose lowering technique was utilized adhering to the principles of ALARA. HISTORY: altered mental status COMPARISON: May 11, 2021 FINDINGS: No intra or extra-axial mass lesions are visualized. There is no CT evidence of acute cortical infarction. There is no evidence of midline shift. There is no acute hemorrhage. No acute depressed calvarial fractures are visualized. There are patchy white matter hypodensities likely on a small vessel basis. Mild atrophic changes of brain parenchyma. Ventricles are midline, slightly prominent likely due to ex vacuo dilatation. There is no evidence of acute sinusitis Postcontrast images reveal no pathologically enhancing masses. No areas of abnormal enhancement is seen. IMPRESSION: No acute intracranial findings ACT 112: Negative or not required by law. The above report was generated using voice recognition software. It may contain grammatical, syntax or spelling errors. Electronically signed by: Yessica Clemente DO 07/13/2021 11:24 AM Chest X-Ray 07/13/21 10:47 XR chest 1V portable CLINICAL HISTORY: Pleural effusion COMPARISON STUDY: July 09, 2021 FINDINGS: No pneumothorax. Stable moderate pleural effusion which is extending to the right minor fissure. Stable small left pleural effusion and dense left retrocardiac opacity with air bronchograms which could represent atelectasis or infiltrate. Atelectasis/infiltrate at the right base is again seen. Cardiomediastinal silhouette is slightly enlarged, stable since prior. Mild pulmonary vascular congestion is seen.. Osseous structures: Degenerative changes of the spine and bilateral shoulders. Interval removal of the right subclavian catheter. IMPRESSION: 1. Stable bilateral pleural effusion associated with atelectasis/infiltrates at bilateral bases. 2. Redemonstration of cardiomegaly and pulmonary vascular congestion. ACT 112: Negative or not required by law. The above report was generated using voice recognition software. It may contain grammatical, syntax or spelling errors. Electronically signed by: Yessica Clemente DO 07/13/2021 11:17 AM Chest X-Ray 07/16/21 04:12 XR chest 1V portable CLINICAL HISTORY: sob COMPARISON STUDY: July 13, 2021 FINDINGS: No pneumothorax. Mild interval worsening/redistribution of the right pleural effusion, now appear moderate. Previously seen partial opacification of the midportion of the left hemidiaphragm is unchanged and might represent small left pleural effusion or/and associated atelectasis/infiltrate within left lower lung. Mild diffuse reticular nodular prominence of pulmonary interstitium is slightly worsened since prior. Cardiomediastinal silhouette is stable. Pulmonary vasculature is indistinct. Aorta is calcified.. Osseous structures: Osteopenia. Degenerative changes of bilateral shoulders and spine. IMPRESSION: 1. Mild interval worsening/redistribution of the right pleural effusion. Possible stable pleural effusion on the left. 2. Mild interval worsening of diffuse reticular nodular prominence of pulmonary interstitium which is seen bilaterally and might represent pulmonary edema versus other etiology. 3. Stable atelectasis/infiltrate at the left lower lung. 4. The rest of findings as above. ACT 112: Negative or not required by law. The above report was generated using voice recognition software. It may contain grammatical, syntax or spelling errors. Electronically signed by: Yessica Clemente DO 07/16/2021 9:47 AM Hospital Course (1) Acute on chronic combined systolic (congestive) and diastolic (congestive) heart failure: Patient required significant diuresis throughout his stay. Once euvolemia was achieved his O2 via NC was weaned off. He remains on metoprolol succinate 200mg daily along with lisinopril 10mg daily. At time of discharge recommend a weight-based approach to use of lasix 20mg. If any weight gains of more than 2-3 pounds over 1-2 days then lasix should be given daily until back down to dry weight. He will follow-up with MARYAM Membreno, in the [facility] 1 week post-discharge. If volume status worsens on prn lasix he ultimately may need standing daily lasix. Decompensated CHF was likely on the basis of uncontrolled a.fib as well as frequent runs of ventricular tachycardia. See #2 below re: ventricular tachycardia. (2) Ventricular tachycardia: Patient was noted on telemetry throughout his stay. He was largely asymptomatic from the runs of VT except for mild dyspnea, and remained hemodynamically stable during these runs. He was loaded with IV amiodarone, then transitioned to amiodarone 200mg PO BID. With the above his runs of VT improved significantly. He was maintained on metoprolol succinate 200mg daily as well. The VT was thought to be due to his cardiomyopathy. K and Mag levels were normal leading up to discharge. Of note - it is felt that the patient is a poor candidate for ICD implantation. He will need f/u with [facility] for this (Ms Hazel or Jd Marquez MD). (3) Altered mental status: The patient had metabolic (and possibly toxic) encephalopathy throughout his stay. This waxed/waned for several weeks. Thiamine deficiency, hospital psychosis, infectious encephalopathy, toxic effects from medications, and other causes were suspected to be contributing. His mental status and orientation improved such that by discharge he was oriented to person, place, and time. However, he did not demonstrate capacity to make insightful, well-informed medical decisions on his own behalf. Further, there were times where he was mildly paranoid. Finally, I am very suspicious that he indeed does have cognitive impairment at baseline. He has never had formal testing (neuropsych testing, etc) to my knowledge to diagnose early cognitive impairment or even a dementia process. See below. (4) Open wound of heel: L heel. Culture during this admission showed pseudomonas and MRSA s/p 7 day course of antibiotics for such. MRI left foot with no obvious osteomyelitis. cont local wound care. offload the heels as tolerated. ulcer stable on day of discharge. (5) Acute respiratory failure with hypoxia: resolved. 2nd acute/chronic CHF. Possibly 2nd small subsegmental RUL PE seen on CTA chest (minor roll if at all). patient is off O2 at time of discharge. (6) Afib: permanent. Continue metoprolol succinate 200mg PO daily. Amiodarone BID for his VT will provide some rate control as well. Continue Eliquis 5mg BID. 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 Recent MRI showed chronic nonunited type II odontoid fracture consistent with unstable fracture and mild displacement of odontoid tip with central canal narrowing at C1 level, progressive marrow edema at C1-C2 levels, and cervical spinal stenosis and neuroforaminal stenosis throughout the cervical spine. Dr Padilla Hassan, orthopedics, saw the patient in early in June 2021 during his prior hospital stay -- felt to be a poor surgical candidate. Would need surgical repair at a tertiary care care. Uncertain, given his numerous comorbidities and bed-bound status, if surgery would even be an option for him however. Ideally should be wearing a soft collar most times of the day but he declines this and is noncompliant with such. Additional imaging on 07/06 (c-spine CT) unchanged from prior imaging. There has been concern that his cervical spinal stenosis (as a result of the fracture) is contributing to his paraplegia. Recommend a referral to neurosurgery (or ortho-spine) at [facility] or [facility] for opinion regarding his C2 fracture TU to determine if he is a candidate for surgery. Patient remains at high risk of developing quadriplegia if the fracture worsens. (9) Bacteremia: resolved. MSSA bacteremia - s/p 6 weeks of Rx with ancef IV (to cover for possibility of SBE as echo was neg for vegetations but high suspicion for SBE). completed the course earlier in the summer. MSSA bacteremia was discovered during his May 2021 hospital stay at [facility]. (10) Joint contracture of left lower leg: cont baclofen TID. he actually has contractures of both legs. (11) Hypoalbuminemia: Previous albumin 1.9. repeat on day of discharge 2.2. appetite improved mildly in the 7-10 days prior to discharge. he completed 2 weeks each of zinc & vitamin C to promote wound healing of his L heel ulcer. due to thiamine deficiency he received thiamine replacement and will continue such upon discharge. cont MVI, supplements, etc. as well. (12) Restless leg syndrome: Continue ropinirole 2 PO BID (13) Anemia: Recent transferrin-sat was <20%. Overall his iron studies are most c/w anemia of chronic disease with element of Fe deficiency as well. H/H stable for numerous days in a row without any overt GI bleeding. Heme neg stool. Venofer 300mg daily x 3 days on 06/22, 06/23, and 06/24. 200mg also given on 07/03. Hemoglobin prior to discharge - 10. (14) Rheumatoid arthritis: Chronic, previously followed by rheumatology in [place]. On chronic Enbrel. Had an RA flare during this stay. He received a prednisone taper. Started prednisone 40mg daily on 07/15/21. This was weaned to 20mg by 07/28/21. He also had a dose of Enbrel on 07/22/21. Due for next dose of Enbrel within 48 hours of discharge. Continue to wean prednisone over the next 3 weeks post-discharge. Recommend referral to Dr Stephen Locke at [facility] rheumatology after discharge for ongoing care. Chronic crackles of bases on lung exam could be rheumatoid lung; could consider high-res CT chest at some point in future. (15) Hypomagnesemia: resolved with supplementation (16) Severe protein-calorie malnutrition: see hypoalbuminemia above TTGs checked for celiac and were negative. Although gluten is on allergy list he likely does not have celiac disease. He could have gluten sensitivity. (17) DVT prophylaxis: Continue Eliquis (18) Paraplegia: acquired. 2nd to c-spine fracture?? (19) Essential hypertension: Added norvasc 5mg daily to his metoprolol and lisinopril. (20) Discharge planning issues: Patient had a palliative care consult earlier this stay- pt refused palliation; full measures and routine care were desired by patient. Palliative care expressed concerns about his ability to make informed medical decisions as did the entire care team. Although patient reported he had children we had no contact information for those individuals. During this stay multiple providers including myself deemed him without capacity. Office of Aging from [facility] was contacted due to his desire to return to his apartment despite his inability to provide any self-care, inability to walk, etc. He did not have any insight into the fact that returning home was dangerous and unsafe given his physical disabilities and inability to care for himself. He would make comments such as "I just need physical therapy" (in order to return home safely). Despite several discussions he never could understand the perils of going home and living in an apartment alone. A court order was put in place to allow patient to be discharged to jail. He will return to [facility] at discharge. Total Time Total Time Spent Total Time Spent (In Minutes): 60 Discharge Plan Discharge Items Patient Disposition: Transfer Long Term Fac Reason For Visit: Shortness of breath Discharge Diagnosis: 1. acute/chronic systolic congestive heart failure - ejection fraction 45-50% 2. multiple runs of nonsustained ventricular tachycardia - initiation of amiodarone 3. chronic cervical spine fracture (C2) - needs neurosurgery or ortho-spine evaluation at [facility] to determine if surgical candidate 4. severe rheumatoid arthitis 5. acquired paraplegia 6. hypertension 7. severe protein calorie-malnutrition 8. anxiety 9. ulceration of left heel 10. chronic atrial fibrillation 11. severe deconditioning 12. cognitive impairment 13. lack of capacity 14. BPH 15. contractures of lower extremities 16. severe pain of knees, Left > Right Condition on Discharge: Good Activity: As commented below Activity Comment: Soft cervical spine collar as much as possible to neck Non-emergency contact: Primary Care Provider Call non-emergency contact if: you have any medication questions, your symptoms worsen, your pain is not controlled, your pain is worsening, you have a fever, your wound has increased redness, your wound has increased drainage and your wound pain has increased Follow-up/Referrals: Zayra Hazel PA-C [Physician Advertising Writer] - 08/06/21 2:00 pm (1 week with Ms Hazel diagnosis - systolic CHF, ventricular tachycardia Congestive Heart Failure Program Appointment Information Early follow up is essential to managing your heart failure. An appointment has been scheduled for you with the [facility] within 7 days of discharge. Anticipate this visit to be 30-60 minutes long. Please expect a materials buyer phone call from one of our nurses approximately 48 hours from discharge. They will also be placing an order for lab work to be completed 1-2 days prior to your heart failure follow up appointment. Please be sure to have this done so we can go over the results when you come in. Office Location The cardiology office building is located in front of the hospital at [address] Bring the following with you to your follow-up doctor appointments: Please bring your daily weight log any discharge paperwork all of your medication bottles with you to this visit. ) Stephen Jasso MD [Physician] - (first available appointment, ideally within 3-4 weeks; severe RA, on Enbrel.) Joss Fry [Primary Care Provider] - Diet: Gluten Free and Heart Healthy Fluids: 1800ml (7 cups) Diet Texture: Easy to Chew Andrewstl Attending Provider Instructions: Mr Dailey was treated for a host of problems as listed above in "discharge diagnoses." His hospital stay was also prolonged by social issues including his insistence on returning to his home. However, patient appears to lack capacity to make informed decisions on his own behalf at this time. He requires [id number] medical care and copious amounts of assistance with all ADLs. Despite his bed-bound status and severe physical disabilities he has consistently told us he can return home easily. Thus, he lacks insight and proper judgement to make safe decisions. Office of Aging was involved during his stay, and a court order was issued for him to return to [facility]. Recommendations - 1. Daily bed-scale weights. If Mr Dailey has any weight gain of more than 2-3 pounds over 1-2 days please start furosemide with potassium and take daily until weight is down to his "dry weight." Additionally please contact his french teacher for further assistance. 2. Patient needs TU referral to ortho-spine or neurosurgery at [facility] or [facility] to obtain opinion regarding his C2 cervical spine fracture and whether he is a surgical candidate. 3. He should wear a soft cervical collar at all times, if possible, especially during transfers and when sitting in a chair. To date Mr Dailey has been noncompliant with this recommendation. May remove brace for grooming, meals, etc. 4. BMP, magnesium in 3-4 days for stability. Results to medical consultant. 5. TU referral to Dr Stephen Locke, [facility], for severe RA. 6. Follow-up with Ms Elana Hazel - [facility] - as scheduled on 08/06/21. 7. Please see Wound Care Instructions from the Wound Care Team for left foot ulcer, sacral / buttock skin breakdown, etc. 8. Patient is due for his weekly Enbrel. Please administer on 07/31/21, and then give once weekly thereafter. Addtl Novelty Worker Provider Instructions: Call your Primary Care doctor or Emergency Veterinary Technician if any of the following symptoms or problems start or get worse: * Shortness of breath or difficulty breathing * Wake up at night short of breath * Chest pain * Cough * Swelling of your hands, feet, or legs * More fatigued or tired with your normal activity * Palpitations - sudden fast heart beats WEIGHT * Weigh yourself every morning after using the bathroom. * Use the same scale. * Wear the same amount of clothing. * Write your weight down on a chart. * Call your Primary Care doctor if you gain more than 2-3 pounds in 1-2 days. If this occurs please start furosemide 20mg daily until back down to "dry weight." MEDICATIONS * Use this discharge instruction sheet for medication instructions. * Take your medications at the time your doctor ordered. * Do not skip a dose of your medicines. * If you miss a dose of medicine, take it as soon as possible, but DO NOT DOUBLE A DOSE. * Read your medicine information when you get home. * Know all of the side effects of your medicine. If in doubt, ask your pharmacist * Call your Primary Care doctor's office if you have any side effects. * Be sure all of your doctors know what medicine and herbs you take (including cold, flu, and herbal medicine). Take the following with you to your follow-up doctor appointments: * Weight Chart * Medication List * List of questions Do not drink excessive alcohol, beer or wine. Pending Studies at Discharge: No Stand-Alone Forms: My [facility] Accertify Skilled Items Patient informed of condition?: Yes DNR: No Discharge Level of Care: Skilled Communicable Disease: Yes Discharge Prognosis: Other Lines: None Urinary Catheter: No Medications and DC Order Prescriptions: New amiodarone 200 mg Tablet 200 mg PO BIDM Qty: 60 RF: 5 amlodipine [Norvasc] 5 mg Tablet 5 mg PO QAM Qty: 30 RF: 5 polyethylene glycol 3350 [Miralax] 17 gram Powder In Packet 17 g PO DAILY Qty: 30 RF: 2 thiamine HCl (vitamin B1) [Vitamin B-1] 100 mg Tablet 200 mg PO BID 14 Days Qty: 56 RF: 0 tamsulosin [Flomax] 0.4 mg capsule 0.4 mg PO DAILY Qty: 30 RF: 5 diclofenac sodium [Voltaren Arthritis Pain] 1 % Gel 4 g EXT QID Qty: 1 RF: 4 prednisone 10 mg tablet 10 mg PO DIRECTED Qty: 20 RF: 0 omeprazole 20 mg capsule,delayed release(DR/EC) 20 mg PO DAILY Qty: 30 RF: 5 furosemide [Lasix] 20 mg tablet 20 mg PO DAILY PRN (Reason: weight gain / fluid build-up from CHF.) Qty: 30 RF: 0 potassium chloride 10 mEq tablet extended release 10 meq PO DAILY PRN (Reason: when furosemide is taken only) Qty: 30 RF: 0 hydrocodone-acetaminophen 5-325 mg tablet 1 tab PO Q6H PRN (Reason: pain) Qty: 30 RF: 0 metoprolol succinate 200 mg tablet extended release 24 hr 200 mg PO DAILY Qty: 30 RF: 5 Continued Enbrel 50 mg/mL (1 mL) syringe 50 mg subcut WK Qty: 12 RF: 1 betamethasone dipropionate 0.05 % lotion 1 applic TOPICAL BID PRN (Reason: Rash) RF: 0 atorvastatin 40 mg Tablet 40 mg PO HS Qty: 0 RF: 0 acetaminophen [Tylenol] 325 mg Tablet 650 mg PO Q4H MDD 3 GRAMS/24 HOURS PRN (Reason: TEMP/PAIN) RF: 0 magnesium hydroxide [Milk of Magnesia] 400 mg/5 mL Suspension 30 ml PO DAILY PRN (Reason: Constipation) RF: 0 ropinirole 2 mg Tablet 2 mg PO Q12H RF: 0 docusate sodium 100 mg Capsule 100 mg PO BIDM RF: 0 omega-3 fatty acids [Fish Oil Concentrate] 1,000 mg capsule 1,000 mg PO BIDM RF: 0 multivitamin Tablet 1 tab PO DAILY RF: 0 Eliquis 5 mg tablet 5 mg PO BID RF: 0 Changed albuterol sulfate 2.5 mg /3 mL (0.083 %) solution for nebulization 2.5 mg inhalation Q6H PRN (Reason: cough/wheeze/shortness of breath) Qty: 0 RF: 0 baclofen 10 mg tablet 5 mg PO TID Qty: 90 RF: 0 ferrous sulfate 325 mg (65 mg iron) Tablet 325 mg PO DAILY Qty: 0 RF: 0 lisinopril [Zestril] 5 mg Tablet 10 mg PO QAM Qty: 0 RF: 0 Discontinued terazosin 2 mg capsule 2 mg PO AMHS RF: 0 lidocaine HCl [Lidocaine Viscous] 2 % Solution 5 ml mucous membrane ACHS RF: 0 carvedilol 6.25 mg tablet 6.25 mg PO BID RF: 0 tramadol 50 mg tablet 50 - 100 mg PO Q4H PRN (Reason: Pain) RF: 0 cefazolin in 0.9% sod chloride 2 gram/100 mL solution 50 ml IV Q8H RF: 0 Discharge Orders: Discharge Order (Routine); Ordered 07/30/21 Ordered By: Brendan Longoria Admission Data Admit Date/Time: 06/20/21 15:40 Attending Provider: Brendan Longoria Admit Provider: Francisco Guerrero Primary Care Provider: Joss Fry Other Providers: Ang, ; Chandler Alves ; [place] [place] ; [facility] ; Francisco Guerrero ; Ignacio Marquez ; Wil Hassan ; Cresencio Saba ; Patti Betancourt ; [facility] Other Interventions: Discharge Summary Assessment (RN) Last Done: 07/30/21 16:24 Coding Level of Care Code D/C DAY MANAGEMENT >30 MINS Diagnoses Ventricular tachycardia I47.2 Acute on chronic combined systolic (congestive) and diastolic (congestive) heart failure I50.43 Altered mental status R41.82 Open wound of heel S91.309A Acute respiratory failure with hypoxia J96.01 Afib I48.91 Pleural effusion J90 Cervical spine fracture S12.9XXA Bacteremia R78.81 Joint contracture of left lower leg M24.562 Hypoalbuminemia E88.09 Restless leg syndrome G25.81 Anemia D64.9 Rheumatoid arthritis M06.9 Rheumatoid arthritis location: unspecified site Rheumatoid factor presence: unspecified presence Hypomagnesemia E83.42 Severe protein-calorie malnutrition E43 DVT prophylaxis Z29.9 Paraplegia G82.20 Essential hypertension I10 Discharge planning issues Z02.9
== END 2021-07-30 16:25 | DRG 291 ==
LOC: ED 11:17 → 2N 15:40 → SUATTDRO 15:40 → 2N 16:17 → 1E 07-06 04:56 → 2S 07-06 18:02 → 2W 07-08 14:00 → 1E 07-16 20:34 → 3E 07-23 13:14

== ENCOUNTER 2021-09-21 09:39 | Inpatient (IN) ==
--- NOTE | 2021-09-21 09:58 | Emergency Department Note ---
Impression & Plan Hypoxia, CHF (congestive heart failure), Respiratory failure, Pleural effusion, Acute hyponatremia ED Provider Note NAME: JASEN YO AGE: 66 SEX: M : 1955 ARRIVES VIA: Ambulance INFORMANT: Patient ED PROVIDER(S): All Ramirez DO CHIEF COMPLAINT: unresponsive episode HPI: Patient is a 66-year-old male brought in by EMS from the heart side. Saundra ent has a past medical history of heart failure, a flutter, elevated troponin, REGIS and hypertension as well as hypoxemia. Patient became unresponsive and was hypoxic and was having respiratory difficulty. They placed him on CPAP and called EMS. He started to wake up and improved. He normally is awake alert oriented. He is a full code. He denies any headache or chest pain. He admits to cough is been present for several months. He notes that shortness of breath has improved. Denies any belly pain, nausea, vomiting, or diarrhea. No dysuria, urgency, or frequency. Did discuss with the nurse at [facility] and they note they have been adjusting his Lasix and has actually increased signi ficantly recently. ROS: See above HPI for pertinent positives & negatives. A total of 10 systems reviewed and were otherwise negative. PAST MEDICAL HISTORY:See Below PAST SURGICAL HISTORY:See Below FAMILY HISTORY:See Below SOCIAL HISTORY:See Below HOME MEDICATIONS:See Below ALLERGIES:See Below VITALS:See Below PHYSICAL EXAMINATION: GENERAL: Lying in bed ill-appearing, on BiPAP with intermittent cough EYE EXAM: normal conjunctiva. PERRL and EOM's grossly intact. OROPHARYNX: no exudate, no erythema, lips, buccal mucosa, and tongue normal and mucous membranes are moist NECK: supple, no nuchal rigidity, no adenopathy, non-tender LUNGS: Diminished bilaterally. Normal chest wall mechanics HEART: no murmurs, S1 normal and S2 normal ABDOMEN: abdomen soft, non-tender, normo-active bowel sounds, no masses, no rebound or guarding. UPPER EXTREMITIES: upper extremities are grossly normal. LOWER EXTREMITIES: No pitting edema. NEURO EXAM: Normal sensorium, cranial nerves II-XII grossly intact, normal speech, no gross weakness of arms, no gross weakness of legs. MEDICAL DECISION MAKING: Patient is a 66-year-old male with past medical history of CHF the presents the ER from [facility] for shortness of breath and altered mental status. Patient became unresponsive and was found to be hypoxic and confused. EMS was called and he was found to be 80% and placed on CPAP which improved. He was brought in for further evaluation. IV was established blood work was obtained. Labs show leukocytosis of 16,000. Mild anemia 8.6 consistent with previous his baseline appears to be 9. Platelets were elevated at 450. BMP with a hyponatremia 126. LFTs bilirubin was unremarkable. Lipase was normal. Pro-Waldemar slightly elevated 0.62. Covid was negative. D-dimer was elevated. CT angio shows moderate sized bilateral pleural effusions. CT head was unremarkable. Patient was updated bedside. He was given Lasix. He remained on BiPAP throughout the stay in the ER and was admitted for further work-up. He was also given a dose of Levaquin as he had a little bit of a cough and had a white count 16,000. Triage Nursing notes reviewed. Limited review of prior medical records performed Vital Signs: reviewed and remarkable for hypoxia Differential diagnosis: Differential diagnoses includes but is not limited to pneumonia, bronchitis, COPD/Asthma exacerbation, pneumothorax, pulmonary embolism, congestive heart failure, acute coronary syndrome ER treatment provided: See below Diagnostics interpreted by me: ECG: Atrial flutter with a variable block rate 84 Normal axis No PVCs Poor baseline QTC 475 Cardiac Monitoring: An order was placed for continuous cardiac monitoring. The monitor shows a rate of 75 with sinus rhythm. Laboratory studies: As stated above and show below. Imaging studies: CT angios shows no PEs but bilateral pleural effusions CT head was negative Consultation(s): Discussed with Dr. Brendan Wall for further evaluation Procedures: none Critical Care: I have personally spent 35 minutes of critical care time in the direct management of this patient. This includes bedside care, interpretation of diagnostic studies, and testing, discussion with consultants, patient, and family members, and other required patient management activities. This 35 mi nutes is in excess of all separately billable procedures. Past Med/Surg History Medical History (Updated 09/21/21 @ 14:12 by All Ramirez DO) Acute respiratory failure with hypoxemia Acute respiratory failure with hypoxia Atrial flutter Chronic neck pain History of cardioversion Homeless single person Hx of fracture of leg left - not current Joint contracture of right lower leg Odontoid fracture Pneumonia Thoracic vertebral fracture Surgical History History of tooth extraction Family History Father Family history of diabetes mellitus Denies family history of Ovarian cancer Prostate cancer Myocardial infarction Breast cancer Colorectal cancer Social History Smoking Status: Unknown if ever smoked Tobacco Type: Cigarettes Age Started Using Tobacco: 16; Age Quit Using Tobacco: 50; packs per day: 1; Years Smoked: 34; Cigarettes Per Day: 20; Number of Years Since Quit: 15; Second Hand Exposure: No; Hx Alcohol Use: No Hx Substance Use: No Preferred Language: Citizen Of [place] Communication Ability: Effective Visual Impairment: No Limitations Hearing Ability: Normal [employer] Observer Required: No Beliefs That Will Affect Care: None marital status: Single Current Living Situation: Custodial current occupational status: unemployed How many Children do You have: 3 Feels Safe at Home: Yes Childhood Exposure to Second-Hand Smoke: Yes during the past year weight has: increased > 10 lbs Dental Care, Regularly: Yes Physical Activity Frequency: Does not Exercise Seatbelt Use: always Sunscreen Use: No Allergies Allergies Allergy/AdvReac Type Severity Reaction Status Date / Time gluten AdvReac Verified 07/14/21 17:25 Home Meds Home Medications Medication Instructions Recorded Confirmed betamethasone dipropionate 0.05 % 1 applic TOPICAL BID PRN 05/11/21 09/21/21 lotion acetaminophen 325 mg tablet 650 mg PO Q4H PRN MDD 3 GRAMS/24 06/05/21 09/21/21 (Tylenol) HOURS docusate sodium 100 mg capsule 100 mg PO BIDM 06/05/21 09/21/21 magnesium hydroxide 400 mg/5 mL 30 ml PO DAILY PRN 06/05/21 09/21/21 oral suspension (Milk of Magnesia) omega-3 fatty acids 1,000 mg 1,000 mg PO BIDM 06/05/21 09/21/21 capsule (Fish Oil Concentrate) ropinirole 2 mg tablet 2 mg PO Q12H 06/05/21 09/21/21 multivitamin 1 tab PO DAILY 06/20/21 09/21/21 apixaban 5 mg tablet (Eliquis) 5 mg PO BID 06/21/21 09/21/21 Previous Rx's Medication Instructions Recorded atorvastatin 40 mg tablet 40 mg PO HS #0 tab 05/17/21 etanercept 50 mg/mL (1 mL) 50 mg SUBCUT WK #12 ml 05/22/21 subcutaneous syringe (Enbrel) albuterol sulfate 2.5 mg INHALATION Q6H PRN #0 ml 07/30/21 amiodarone 200 mg tablet 200 mg PO BIDM #60 tab 07/30/21 amlodipine 5 mg tablet (Norvasc) 5 mg PO QAM #30 tab 07/30/21 baclofen 10 mg tablet 5 mg PO TID #90 tab 07/30/21 diclofenac sodium 1 % topical gel 4 g EXT QID #1 tube 07/30/21 (Voltaren Arthritis Pain) ferrous sulfate 325 mg (65 mg 325 mg PO DAILY #0 tab 07/30/21 iron) tablet furosemide 20 mg tablet (Lasix) 20 mg PO DAILY PRN #30 tab 07/30/21 hydrocodone 5 mg-acetaminophen 325 1 tab PO Q6H PRN #30 tab 07/30/21 mg tablet lisinopril 5 mg tablet (Zestril) 10 mg PO QAM #0 tab 07/30/21 metoprolol succinate 200 mg 200 mg PO DAILY #30 tab 07/30/21 tablet,extended release 24 hr omeprazole 20 mg capsule,delayed 20 mg PO DAILY #30 cap 07/30/21 release polyethylene glycol 3350 17 gram 17 g PO DAILY #30 ea 07/30/21 oral powder packet (Miralax) potassium chloride 10 mEq 10 meq PO DAILY PRN #30 tab 07/30/21 tablet,extended release prednisone 10 mg tablet 10 mg PO DIRECTED #20 tab 07/30/21 tamsulosin 0.4 mg capsule (Flomax) 0.4 mg PO DAILY #30 cap 07/30/21 Results & Data (ED) Vital Signs Vital Signs - 24 hr 09/21/21 09:40 09/21/21 09:44 09/21/21 10:00 Temperature 37.2 C Temperature Source Oral Pulse Rate 71 81 Pulse Rate from SpO2 Sensor 77 Pulse Rhythm Regular Pulse Strength Normal Respiratory Rate 22 26 H Respiratory Effort / Characteristics Spontaneous Labored Spontaneous Respiratory Depth Respiratory Pattern Apnea Irregular Blood Pressure 105/65 93/48 L Blood Pressure Mean 78 63 Blood Pressure Position Lying Pulse Oximetry 100 100 Oxygen Delivery Method BiPAP BiPAP Oxygen Flow Rate Fraction of Inspired Oxygen 100 100 SaO2/FiO2 Ratio 100 Sepsis Recent Fever Within 48 Hours No Sepsis New/Unexplained Change in Mental Status N/A Sepsis Action Taken by Nursing No Action Required 09/21/21 10:30 09/21/21 10:56 09/21/21 11:16 Temperature Temperature Source Pulse Rate 69 78 70 Pulse Rate from SpO2 Sensor 72 69 Pulse Rhythm Pulse Strength Respiratory Rate 25 H 22 24 Respiratory Effort / Characteristics Non-Labored Spontaneous Respiratory Depth Normal Respiratory Pattern Regular Blood Pressure 109/56 L 114/62 Blood Pressure Mean 73 79 Blood Pressure Position Pulse Oximetry 100 100 100 Oxygen Delivery Method Oxygen Flow Rate Fraction of Inspired Oxygen 100 SaO2/FiO2 Ratio Sepsis Recent Fever Within 48 Hours Sepsis New/Unexplained Change in Mental Status Sepsis Action Taken by Nursing 09/21/21 11:30 09/21/21 12:30 09/21/21 13:00 Temperature Temperature Source Pulse Rate 77 69 72 Pulse Rate from SpO2 Sensor 78 71 71 Pulse Rhythm Pulse Strength Respiratory Rate 22 22 19 Respiratory Effort / Characteristics Respiratory Depth Respiratory Pattern Blood Pressure 93/76 L 105/60 106/70 Blood Pressure Mean 81 75 82 Blood Pressure Position Pulse Oximetry 100 100 96 Oxygen Delivery Method Oxymask Oxymask Oxymask Oxygen Flow Rate 6 6 6 Fraction of Inspired Oxygen SaO2/FiO2 Ratio Sepsis Recent Fever Within 48 Hours Sepsis New/Unexplained Change in Mental Status Sepsis Action Taken by Nursing Laboratory Data Result diagrams: 09/21/21 09:42 09/21/21 09:42 Lab Results 09/21/21 09/21/21 09/21/21 Range/Units 09:42 09:42 09:42 WBC 16.94 H (4.8-10.8) K/uL RBC 3.25 L (4.7-6.1) M/uL Hgb 8.6 L (14.0-18.0) g/dL Hct 26.8 L (42-52) % MCV 82.5 (80-100) fL MCH 26.5 (25-34) pg MCHC 32.1 (32-36) g/dL RDW Std Deviation 54.6 H (36.4-46.3) fL RDW Coeff of Jayjay 18.0 H (11.5-14.5) % Plt Count 450 H (130-400) K/uL MPV 8.0 (7.4-10.4) fL Immature Gran % (Auto) 0.1 % Neut % (Auto) 90.4 % Lymph % (Auto) 3.1 % [place] % (Auto) 6.4 % Eos % (Auto) 0.0 % Baso % (Auto) 0.0 % Neut # (Auto) 15.31 H (1.4-6.5) K/uL Lymph # (Auto) 0.53 L (1.2-3.4) K/uL [place] # (Auto) 1.08 H (0.11-0.59) K/uL Eos # (Auto) 0.00 (0-0.5) K/uL Baso # (Auto) 0.00 (0-0.2) K/uL Immature Gran # (Auto) 0.02 (0.00-0.02) K/uL D-Dimer 2720 H* (0-500) ug/L FEU VBG pH (7.36-7.41) VBG pCO2 (38-50) mmHg VBG pO2 mmHg VBG HCO3 mmol/L VBG O2 Saturation % VBG Base Excess mEq/L Barometric Pressure mm/Hg Sodium 126 L (136-145) mmol/L Potassium 4.3 (3.5-5.1) mmol/L Chloride 95 L (98-107) mmol/L Carbon Dioxide 24 (21-32) mmol/L Anion Gap 7.0 (3-11) BUN 23 H (7-18) mg/dl Creatinine 0.70 (0.6-1.4) mg/dl Est Cr Clr Drug Dosing 112.7 ml/min Est GFR ( Amer) 114.0 ml/min Est GFR (Non-Af Amer) 98.3 ml/min BUN/Creatinine Ratio 33.1 H (10-20) Glucose 99 (70-99) mg/dl Calcium 7.9 L (8.5-10.1) mg/dl Total Bilirubin 0.5 (0.2-1) mg/dl AST 18 (15-37) U/L ALT 29 (12-78) U/L Alkaline Phosphatase 88 (45-117) U/L Troponin I < 0.015 (0-0.045) ng/ml NT-Pro-B Natriuret Pep (0-900) pg/ml Total Protein 6.0 L (6.4-8.2) gm/dl Albumin 1.7 L (3.4-5.0) gm/dl Globulin 4.3 H (2.5-4.0) gm/dl Albumin/Globulin Ratio 0.4 L (0.9-2) Lipase 39 L (73-393) U/L Procalcitonin (0-0.5) ng/ml COVID-19 Eval Order SARS-CoV-2 (PCR) (Negative) 09/21/21 09/21/21 09/21/21 Range/Units 10:30 10:30 10:37 WBC (4.8-10.8) K/uL RBC (4.7-6.1) M/uL Hgb (14.0-18.0) g/dL Hct (42-52) % MCV (80-100) fL MCH (25-34) pg MCHC (32-36) g/dL RDW Std Deviation (36.4-46.3) fL RDW Coeff of Jayjay (11.5-14.5) % Plt Count (130-400) K/uL MPV (7.4-10.4) fL Immature Gran % (Auto) % Neut % (Auto) % Lymph % (Auto) % [place] % (Auto) % Eos % (Auto) % Baso % (Auto) % Neut # (Auto) (1.4-6.5) K/uL Lymph # (Auto) (1.2-3.4) K/uL [place] # (Auto) (0.11-0.59) K/uL Eos # (Auto) (0-0.5) K/uL Baso # (Auto) (0-0.2) K/uL Immature Gran # (Auto) (0.00-0.02) K/uL D-Dimer (0-500) ug/L FEU VBG pH 7.44 H (7.36-7.41) VBG pCO2 36 L (38-50) mmHg VBG pO2 45 mmHg VBG HCO3 23 mmol/L VBG O2 Saturation 79.7 % VBG Base Excess -0.7 mEq/L Barometric Pressure 727.2 mm/Hg Sodium (136-145) mmol/L Potassium (3.5-5.1) mmol/L Chloride (98-107) mmol/L Carbon Dioxide (21-32) mmol/L Anion Gap (3-11) BUN (7-18) mg/dl Creatinine (0.6-1.4) mg/dl Est Cr Clr Drug Dosing ml/min Est GFR ( Amer) ml/min Est GFR (Non-Af Amer) ml/min BUN/Creatinine Ratio (10-20) Glucose (70-99) mg/dl Calcium (8.5-10.1) mg/dl Total Bilirubin (0.2-1) mg/dl AST (15-37) U/L ALT (12-78) U/L Alkaline Phosphatase (45-117) U/L Troponin I (0-0.045) ng/ml NT-Pro-B Natriuret Pep (0-900) pg/ml Total Protein (6.4-8.2) gm/dl Albumin (3.4-5.0) gm/dl Globulin (2.5-4.0) gm/dl Albumin/Globulin Ratio (0.9-2) Lipase (73-393) U/L Procalcitonin (0-0.5) ng/ml COVID-19 Eval Order Covid19 at [facility] SARS-CoV-2 (PCR) NEGATIVE (Negative) 09/21/21 09/21/21 Range/Units 12:37 12:37 WBC (4.8-10.8) K/uL RBC (4.7-6.1) M/uL Hgb (14.0-18.0) g/dL Hct (42-52) % MCV (80-100) fL MCH (25-34) pg MCHC (32-36) g/dL RDW Std Deviation (36.4-46.3) fL RDW Coeff of Jayjay (11.5-14.5) % Plt Count (130-400) K/uL MPV (7.4-10.4) fL Immature Gran % (Auto) % Neut % (Auto) % Lymph % (Auto) % [place] % (Auto) % Eos % (Auto) % Baso % (Auto) % Neut # (Auto) (1.4-6.5) K/uL Lymph # (Auto) (1.2-3.4) K/uL [place] # (Auto) (0.11-0.59) K/uL Eos # (Auto) (0-0.5) K/uL Baso # (Auto) (0-0.2) K/uL Immature Gran # (Auto) (0.00-0.02) K/uL D-Dimer (0-500) ug/L FEU VBG pH (7.36-7.41) VBG pCO2 (38-50) mmHg VBG pO2 mmHg VBG HCO3 mmol/L VBG O2 Saturation % VBG Base Excess mEq/L Barometric Pressure mm/Hg Sodium (136-145) mmol/L Potassium (3.5-5.1) mmol/L Chloride (98-107) mmol/L Carbon Dioxide (21-32) mmol/L Anion Gap (3-11) BUN (7-18) mg/dl Creatinine (0.6-1.4) mg/dl Est Cr Clr Drug Dosing ml/min Est GFR ( Amer) ml/min Est GFR (Non-Af Amer) ml/min BUN/Creatinine Ratio (10-20) Glucose (70-99) mg/dl Calcium (8.5-10.1) mg/dl Total Bilirubin (0.2-1) mg/dl AST (15-37) U/L ALT (12-78) U/L Alkaline Phosphatase (45-117) U/L Troponin I (0-0.045) ng/ml NT-Pro-B Natriuret Pep 85928 H (0-900) pg/ml Total Protein (6.4-8.2) gm/dl Albumin (3.4-5.0) gm/dl Globulin (2.5-4.0) gm/dl Albumin/Globulin Ratio (0.9-2) Lipase (73-393) U/L Procalcitonin 0.62 H (0-0.5) ng/ml COVID-19 Eval Order SARS-CoV-2 (PCR) (Negative) Administered Medications Levofloxacin/Dextrose (Levaquin/D5w) 750 mg in 150 mls @ 100 mls/hr IV Q24H SALE[place] Stop: 09/23/21 10:29 Last Infusion: 09/21/21 12:40 Dose: 0 mls/hr Documented by: [id number] Admin: 09/21/21 10:40 Dose: 100 mls/hr Documented by: [id number] Discontinued Medications Furosemide (Furosemide 40 Mg/4 Ml Vial) 40 mg IV ONE ONE Stop: 09/21/21 11:54 Last Admin: 09/21/21 13:00 Dose: 40 mg Documented by: [id number] Ioversol (Optiray 320 125ml) 119 ml IV ONCE ONE Stop: 09/21/21 11:11 Last Admin: 09/21/21 11:10 Dose: 119 ml Documented by: [id number] Imaging Data Radiologist's Impression: Chest X-Ray 09/21/21 09:52 XR chest 1V portable CLINICAL HISTORY: Chest Pain. COMPARISON STUDY: 07/16/2021 TECHNIQUE: 1 view of the chest FINDINGS: Single frontal view of the chest demonstrates the heart to again be mildly enlarged. There is increased density in retrocardiac region with the findings characteristic of atelectasis versus early infiltrate. The right hemithorax is clear. There is haziness involving the left hemithorax when compared to the right characteristic of pleural fluid layering along the posterior gutter. There is no evidence for vascular congestion. There is no acute osseous pathology. IMPRESSION: Increased retrocardiac density characteristic of atelectasis versus early infiltrate. Additional findings suspicious for left pleural fluid layering along the posterior gutter. Follow-up PA and lateral radiographs would be helpful for further evaluation. ACT 112: Negative or not required by law. Electronically signed by: Alex Lobato M.D. 09/21/2021 10:10 AM Chest CTA 09/21/21 10:31 CT angio chest PE protocol CLINICAL HISTORY: Shortness of breath. Evaluate for pulmonary embolus oral chest from 09/21/2021 COMPARISON STUDY: No previous studies for comparison. CT DOSE: 1435.93 mGy. TECHNIQUE: CT Angio of the chest was performed.followed by image post processing with coronal, and sagittal MIP reformats. Contrast Volume: Optiray 320, 119 ml FINDINGS: Vasculature: There is homogeneous perfusion of the pulmonary vasculature bilaterally. No intraluminal filling defects or evidence for pulmonary embolus is seen. Airway: The airway is clear. No endobronchial lesion is identified. Lungs and pleural: Compared to the portable chest radiograph, there are actually moderate-sized bilateral pleural effusions, left greater than right with compressive atelectasis/collapse involving the left lower lobe. The lungs are otherwise clear of acute alveolar opacities, air bronchograms or pulmonary nodules. Mediastinum: There is no evidence for pathologic adenopathy. The heart size is within normal limits. There is coronary artery calcification. The thoracic aorta is within normal limits. Atelectatic calcifications are seen involving the aortic arch and origin of great vessels. There is no evidence for pericardial effusion. Upper abdomen:The adrenal glands are normal bilaterally. Osseous structures: There is no acute osseous pathology. Impression: 1. No CTA evidence for pulmonary embolus. 2. Compared to the portable chest radiograph, there are actually moderate-sized bilateral pleural effusions, left greater than right with compressive atelectasis/collapse of the left lung base. 3. No confluent alveolar opacities or bronchograms. ACT 112: Negative or not required by law. Electronically signed by: Alex Lobato M.D. 09/21/2021 11:[address] 09/21/21 12:09 CT head/brain wo con CLINICAL HISTORY: Altered mental state COMPARISON STUDY: 06/12/2021 CT DOSE: 1028.89 mGy.cm TECHNIQUE: Standard CT of the Brain was performed without IV contrast. A dose lowering technique was utilized adhering to the principles of ALARA. FINDINGS: Extraaxial space: There is no evidence for subdural hematoma. There are no extra-axial fluid collections. Ventricles and cisterns: The ventricles are normal in size and configuration. There is no evidence for midline shift or mass effect. Parenchyma: There is no subarachnoid or intraparenchymal hemorrhage. There is no evidence for an acute infarct or cerebral edema. There is mild cerebral cortical atrophy present. There is homogeneous attenuation of the brain parenchyma. There are no gross mass lesions. Osseous structures: There is no evidence for an acute fracture. The visualized paranasal sinuses are clear. The mastoid air cells are clear bilaterally. Soft tissues: There is no evidence for focal soft tissue swelling. IMPRESSION: No acute intracerebral pathology. Mild cerebral cortical atrophy is again seen. ACT 112: Negative or not required by law. Electronically signed by: Alex Lobato M.D. 09/21/2021 1:47 PM Discharge Plan Visit Data Chief Complaint: Shortness of Breath/Dyspnea Stated Complaint: SOB ED Provider: All Ramirez Discharge Problem: Hypoxia, CHF (congestive heart failure), Respiratory failure, Pleural effusion, Acute hyponatremia Forms Stand Alone Forms: My [facility] [employer] Prescriptions Prescriptions: No Action Enbrel 50 mg/mL (1 mL) syringe 50 mg subcut WK Qty: 12 RF: 1 betamethasone dipropionate 0.05 % lotion 1 applic TOPICAL BID PRN (Reason: Rash) RF: 0 atorvastatin 40 mg Tablet 40 mg PO HS Qty: 0 RF: 0 acetaminophen [Tylenol] 325 mg Tablet 650 mg PO Q4H MDD 3 GRAMS/24 HOURS PRN (Reason: TEMP/PAIN) RF: 0 magnesium hydroxide [Milk of Magnesia] 400 mg/5 mL Suspension 30 ml PO DAILY PRN (Reason: Constipation) RF: 0 ropinirole 2 mg Tablet 2 mg PO Q12H RF: 0 docusate sodium 100 mg Capsule 100 mg PO BIDM RF: 0 omega-3 fatty acids [Fish Oil Concentrate] 1,000 mg capsule 1,000 mg PO BIDM RF: 0 multivitamin Tablet 1 tab PO DAILY RF: 0 Eliquis 5 mg tablet 5 mg PO BID RF: 0 amiodarone 200 mg Tablet 200 mg PO BIDM Qty: 60 RF: 5 amlodipine [Norvasc] 5 mg Tablet 5 mg PO QAM Qty: 30 RF: 5 polyethylene glycol 3350 [Miralax] 17 gram Powder In Packet 17 g PO DAILY Qty: 30 RF: 2 tamsulosin [Flomax] 0.4 mg capsule 0.4 mg PO DAILY Qty: 30 RF: 5 diclofenac sodium [Voltaren Arthritis Pain] 1 % Gel 4 g EXT QID Qty: 1 RF: 4 prednisone 10 mg tablet 10 mg PO DIRECTED Qty: 20 RF: 0 omeprazole 20 mg capsule,delayed release(DR/EC) 20 mg PO DAILY Qty: 30 RF: 5 furosemide [Lasix] 20 mg tablet 20 mg PO DAILY PRN (Reason: weight gain / fluid build-up from CHF.) Qty: 30 RF: 0 potassium chloride 10 mEq tablet extended release 10 meq PO DAILY PRN (Reason: when furosemide is taken only) Qty: 30 RF: 0 hydrocodone-acetaminophen 5-325 mg tablet 1 tab PO Q6H PRN (Reason: pain) Qty: 30 RF: 0 albuterol sulfate 2.5 mg /3 mL (0.083 %) solution for nebulization 2.5 mg inhalation Q6H PRN (Reason: cough/wheeze/shortness of breath) Qty: 0 RF: 0 baclofen 10 mg tablet 5 mg PO TID Qty: 90 RF: 0 ferrous sulfate 325 mg (65 mg iron) Tablet 325 mg PO DAILY Qty: 0 RF: 0 lisinopril [Zestril] 5 mg Tablet 10 mg PO QAM Qty: 0 RF: 0 metoprolol succinate 200 mg tablet extended release 24 hr 200 mg PO DAILY Qty: 30 RF: 5 Referrals Referrals: Joss Fry [Primary Care Provider] - Discharge Problem: CHF (congestive heart failure) Qualifiers: Heart failure type: unspecified Heart failure chronicity: unspecified Qualified Code(s): I50.9 - Heart failure, unspecified Respiratory failure Qualifiers: Chronicity: acute Respiratory failure complication: hypoxia Qualified Code(s): J96.01 - Acute respiratory failure with hypoxia
[2021-09-21 10:12] LABS: Hematocrit (blood only) 26.8 % (42-52); Hemoglobin 8.6 g/dL (14.0-18.0); Immature Granulocytes # (auto) 0.02 K/uL (0.00-0.02); Immature Granulocytes % (auto) 0.1 %; Lymphocytes # (auto) 0.53 K/uL (1.2-3.4); Lymphocytes % (auto) 3.1 %; Mean Corpuscular Hemoglobin 26.5 pg (25-34); Mean Corpuscular Hgb Conc 32.1 g/dL (32-36); Mean Corpuscular Volume 82.5 fL (80-100); Monocytes # (auto) 1.08 K/uL (0.11-0.59); Monocytes % (auto) 6.4 %; Neutrophils # (auto) 15.31 K/uL (1.4-6.5); Neutrophils % (auto) 90.4 %; Platelet Count 450 K/uL (130-400); RDW Standard Deviation 54.6 fL (36.4-46.3); Red Blood Count 3.25 M/uL (4.7-6.1); White Blood Count 16.94 K/uL (4.8-10.8)
--- NOTE | 2021-09-21 10:12 | XRay Report ---
XR chest 1V portable CLINICAL HISTORY: Chest Pain. COMPARISON STUDY: 07/16/2021 TECHNIQUE: 1 view of the chest FINDINGS: Single frontal view of the chest demonstrates the heart to again be mildly enlarged. There is increas ed density in retrocardiac region with the findings characteristic of atelectasis versus early infilt rate. The right hemithorax is clear. There is haziness involving the left hemithorax when compared to the right characteristic of pleural fluid layering along the posterior gutter. There is no evidence for vascular congestion. There is no acute osseous pathology. IMPRESSION: Increased retrocardiac density characteristic of atelectasis versus early infiltrate. Add itional findings suspicious for left pleural fluid layering along the posterior gutter. Follow-up PA and lateral radiographs would be helpful for further evaluation. ACT 112: Negative or not required by law. Electronically signed by: Alex Lobato M.D. 09/21/2021 10:10 AM
[2021-09-21 10:20] LABS: Alanine Aminotransferase 29 U/L (12-78); Albumin Level 1.7 gm/dl (3.4-5.0); Aspartate Aminotransferase 18 U/L (15-37); BUN Creatinine Ratio 33.1 (10-20); Blood Urea Nitrogen 23 mg/dl (7-18); Calcium 7.9 mg/dl (8.5-10.1); Carbon Dioxide 24 mmol/L (21-32); Chloride 95 mmol/L (98-107); Creatinine Clr Calc Pharmacy 112.7 ml/min; Est GFR (Non-African American) 98.3 ml/min; Glucose 99 mg/dl (70-99); Lipase 39 U/L (73-393); Potassium 4.3 mmol/L (3.5-5.1); Sodium 126 mmol/L (136-145)
[2021-09-21 10:25] LABS: Albumin Globulin Ratio 0.4 (0.9-2); Alkaline Phosphatase 88 U/L (45-117); Bilirubin,Total 0.5 mg/dl (0.2-1); Globulin 4.3 gm/dl (2.5-4.0); Troponin I < 0.015 ng/ml (0-0.045)
[2021-09-21] MEDS ORDERED: levoFLOXacin/D5W 750 MG/150 ML BAG IV SCH (10:30)
[2021-09-21 10:31] LABS: D Dimer 2720 ug/L FEU (0-500)
[2021-09-21 10:52] LABS: Base Excess VBG -0.7 mEq/L; Oxygen Saturation VBG 79.7 %; pH VBG 7.44 (7.36-7.41)
[2021-09-21] MEDS ORDERED: OPTIRAY 320 125ml IV ONE (11:10)
--- NOTE | 2021-09-21 11:27 | CT Scan Report ---
CT angio chest PE protocol CLINICAL HISTORY: Shortness of breath. Evaluate for pulmonary embolus oral chest from 09/21/2021 COMPARISON STUDY: No previous studies for comparison. CT DOSE: 1435.93 mGy.cm TECHNIQUE: CT Angio of the chest was performed.followed by image post processing with coronal, and s agittal MIP reformats. Contrast Volume: Optiray 320, 119 ml FINDINGS: Vasculature: There is homogeneous perfusion of the pulmonary vasculature bilaterally. No intraluminal filling defects or evidence for pulmonary embolus is seen. Airway: The airway is clear. No endobronchial lesion is identified. Lungs and pleural: Compared to the portable chest radiograph, there are actually moderate-sized bilat eral pleural effusions, left greater than right with compressive atelectasis/collapse involving the l eft lower lobe. The lungs are otherwise clear of acute alveolar opacities, air bronchograms or pulmon harshal nodules. Mediastinum: There is no evidence for pathologic adenopathy. The heart size is within normal limits. There is coronary artery calcification. The thoracic aorta is within normal limits. Atelectatic calci fications are seen involving the aortic arch and origin of great vessels. There is no evidence for pe ricardial effusion. Upper abdomen:The adrenal glands are normal bilaterally. Osseous structures: There is no acute osseous pathology. Impression: 1. No CTA evidence for pulmonary embolus. 2. Compared to the portable chest radiograph, there are actually moderate-sized bilateral pleural eff usions, left greater than right with compressive atelectasis/collapse of the left lung base. 3. No confluent alveolar opacities or bronchograms. ACT 112: Negative or not required by law. Electronically signed by: Alex Lobato M.D. 09/21/2021 11:26 AM
[2021-09-21] MEDS ORDERED: FUROSEMIDE 40 MG/4 ML VIAL IV ONE ×2 (11:53→20:05)
--- NOTE | 2021-09-21 11:56 | History & Physical Report ---
Date of Service September 21, 2021 Assessment & Plan (1) Acute respiratory failure with hypoxia: Plan: Secondary to CHF as below. No CO2 retention. CPAP HS or when napping Procalcitonin and WBC elevated however no CT evidence of pneumonia, UA negative therefore will discontinue further antibiotics Aim O2 sats > 94% (2) Heart failure with mid-range ejection fraction: Plan: Lasix 40mg IV given in ER, then 40mg IV daily. Aim 1-2L net negative balance daily TTE Strict I&Os Daily weights (3) Leukocytosis: Plan: Repeat with AM labs. No PNA on CXR therefore will d/c further antibiotics. Procalcitonin only minimally elevated. UA negative for infection. Follow up blood cultures. Repeat with AM labs (4) Hypertension: Plan: Hold lisinopril to allow up titration of Lasix Lasix as above (5) Acute hyponatremia: Plan: Suspect secondary to acute heart failure. Should improve with diuresis (6) BPH (benign prostatic hyperplasia): Plan: Continue tamsulosin 0.4mg PO daily (7) Paroxysmal atrial fibrillation: Plan: Rate controlled Continue metoprolol succinate with hold parameters Continue amiodarone Continue Eliquis for stroke prophylaxis (8) Rheumatoid arthritis: Plan: Continue prednisone 5mg PO daily Plan: VTE Prophylaxis - Eliquis Diet - NPO Disposition - admit to PCU Admission and Anticipated Discharge Date Admission Date: September 21, 2021 History of Present Illness Chief Complaint: Unresponsiveness Primary Care Provider: [facility] David Dailey is a 66 year old male from [facility] who presents to the ER after a hypoxic episode and unresponsiveness earlier today. The patient is currently awake and orientated but with some difficulty communicating tells me he is here because he had an argument with the physical therapist that he didn't want to do physical therapy today but they got him up into a wheelchair but cannot tell me what happened after that. Patient has a POLST form wishing for full treatment and full code. Per ER note [facility] have been increasing his Lasix significantly however from documentation he was given started on it today at just 20mg PO. Per EMS he was placed on CPAP and mentation has improved significantly since then. He denies any fever, chills, cough. He does report feeling generalized weakness getting worse over the last week and they have needed to use the chair lift more. In the ER VBG shows he is not retaining CO2. He remains on CPAP at this time. Lasix 40mg IV given. Levaquin also given to cover for bacterial pneumonia. He was referred to medicine for acute hypoxic respiratory failure and CHF. Allergies Allergy/AdvReac Type Severity Reaction Status Date / Time gluten AdvReac Verified 07/14/21 17:25 Home Medications Medication Instructions Recorded Confirmed Type betamethasone dipropionate 0.05 % 1 applic TOPICAL BID PRN 05/11/21 09/21/21 History lotion atorvastatin 40 mg tablet 40 mg PO HS #0 tab 05/17/21 09/21/21 Rx etanercept 50 mg/mL (1 mL) 50 mg SUBCUT WK #12 ml 05/22/21 09/21/21 Rx subcutaneous syringe (Enbrel) acetaminophen 325 mg tablet 650 mg PO Q4H PRN MDD 3 GRAMS/24 06/05/21 09/21/21 History (Tylenol) HOURS docusate sodium 100 mg capsule 100 mg PO BIDM 06/05/21 09/21/21 History magnesium hydroxide 400 mg/5 mL 30 ml PO DAILY PRN 06/05/21 09/21/21 History oral suspension (Milk of Magnesia) omega-3 fatty acids 1,000 mg 1,000 mg PO BIDM 06/05/21 09/21/21 History capsule (Fish Oil Concentrate) ropinirole 2 mg tablet 2 mg PO Q12H 06/05/21 09/21/21 History multivitamin 1 tab PO DAILY 06/20/21 09/21/21 History apixaban 5 mg tablet (Eliquis) 5 mg PO BID 06/21/21 09/21/21 History albuterol sulfate 2.5 mg INHALATION Q6H PRN #0 ml 07/30/21 09/21/21 Rx amiodarone 200 mg tablet 200 mg PO BIDM #60 tab 07/30/21 09/21/21 Rx amlodipine 5 mg tablet (Norvasc) 5 mg PO QAM #30 tab 07/30/21 09/21/21 Rx baclofen 10 mg tablet 5 mg PO TID #90 tab 07/30/21 09/21/21 Rx diclofenac sodium 1 % topical gel 4 g EXT QID #1 tube 07/30/21 09/21/21 Rx (Voltaren Arthritis Pain) ferrous sulfate 325 mg (65 mg 325 mg PO DAILY #0 tab 07/30/21 09/21/21 Rx iron) tablet furosemide 20 mg tablet (Lasix) 20 mg PO DAILY PRN #30 tab 07/30/21 09/21/21 Rx hydrocodone 5 mg-acetaminophen 325 1 tab PO Q6H PRN #30 tab 07/30/21 09/21/21 Rx mg tablet lisinopril 5 mg tablet (Zestril) 10 mg PO QAM #0 tab 07/30/21 09/21/21 Rx metoprolol succinate 200 mg 200 mg PO DAILY #30 tab 07/30/21 09/21/21 Rx tablet,extended release 24 hr omeprazole 20 mg capsule,delayed 20 mg PO DAILY #30 cap 07/30/21 09/21/21 Rx release polyethylene glycol 3350 17 gram 17 g PO DAILY #30 ea 07/30/21 09/21/21 Rx oral powder packet (Miralax) potassium chloride 10 mEq 10 meq PO DAILY PRN #30 tab 07/30/21 09/21/21 Rx tablet,extended release prednisone 10 mg tablet 10 mg PO DIRECTED #20 tab 07/30/21 09/21/21 Rx tamsulosin 0.4 mg capsule (Flomax) 0.4 mg PO DAILY #30 cap 07/30/21 09/21/21 Rx Past Med/Surg History Medical History (Updated 09/22/21 @ 07:12 by Brendan Wall MD) Acute respiratory failure with hypoxemia Acute respiratory failure with hypoxia Atrial flutter Chronic neck pain History of cardioversion Homeless single person Hx of fracture of leg left - not current Joint contracture of right lower leg Odontoid fracture Pneumonia Rheumatoid arthritis Thoracic vertebral fracture Surgical History History of tooth extraction Family History Father Family history of diabetes mellitus Denies family history of Ovarian cancer Prostate cancer Myocardial infarction Breast cancer Colorectal cancer Social History Smoking Status: Unknown if ever smoked Tobacco Type: Cigarettes Age Started Using Tobacco: 16; Age Quit Using Tobacco: 50; packs per day: 1; Years Smoked: 34; Cigarettes Per Day: 20; Number of Years Since Quit: 15; Second Hand Exposure: No; Hx Alcohol Use: No Hx Substance Use: No Preferred Language: Burkinan Communication Ability: Effective Visual Impairment: No Limitations Hearing Ability: Normal Adult Services Librarian Required: No Beliefs That Will Affect Care: None marital status: Single Current Living Situation: [facility] current occupational status: unemployed How many Children do You have: 3 Feels Safe at Home: Yes Childhood Exposure to Second-Hand Smoke: Yes during the past year weight has: increased > 10 lbs Dental Care, Regularly: Yes Physical Activity Frequency: Does not Exercise Seatbelt Use: always Sunscreen Use: No Assistive Devices: BiPap Review of Systems Review of Systems: All systems reviewed & are unremarkable except as noted in HPI & below Physical Exam Constitutional: + acute distress (respitaory), + ill appearing and + frail appearing; + not well nourished Eyes: + anicteric sclerae; normal pupil size ENMT: external ear and nose normal, oropharynx normal Neck: trachea midline, no thyromegaly Respiratory: + respiratory distress, + labored breathing, + retractions, + uses accessory muscles and + tachypneic; + not able to speak in complete sentence and expiratory phase not prolonged Auscultation: + diminished lung sounds (bibasal) and + rhonchi (throughout); no crackles, no rales and no wheezes Cardiovascular: Rate/Rhythm: regular rate and + irregularly irregular Heart Sounds: no murmur Extremities: normal capillary refill and + pedal edema (trace pretibial b/l equal); no calf tenderness Gastrointestinal (Abdomen): Inspection/Auscultation: abdomen normal to inspection and normal bowel sounds; abdomen not distended Percussion/Palpation: abdomen soft; abdomen nontender, no guarding and abdomen not rigid Musculoskeletal: b/l LE reduced movements in b/l flexion contracture Neurologic: awake; no focal motor deficits (no lateralizing decifit, unable to fully assess LE but appear to be in toucher up) and not confused Psychiatric: Orientation: alert, oriented to person and oriented to place; + not oriented to time Results & Data Results & Data ([facility]) Vital Signs (Past 12 Hours) Vital Signs Temp Pulse Resp BP Pulse Ox 09/21/21 11:16 70 24 114/62 100 09/21/21 10:56 78 22 100 09/21/21 10:30 69 25 H 109/56 L 100 09/21/21 10:00 81 26 H 93/48 L 100 09/21/21 09:40 37.2 C 71 22 105/65 100 Laboratory Results Abnormal lab results 09/21/21 09/21/21 09/21/21 Range/Units 09:42 09:42 09:42 WBC 16.94 H (4.8-10.8) K/uL RBC 3.25 L (4.7-6.1) M/uL Hgb 8.6 L (14.0-18.0) g/dL Hct 26.8 L (42-52) % RDW Std Deviation 54.6 H (36.4-46.3) fL RDW Coeff of Jayjay 18.0 H (11.5-14.5) % Plt Count 450 H (130-400) K/uL Neut # (Auto) 15.31 H (1.4-6.5) K/uL Lymph # (Auto) 0.53 L (1.2-3.4) K/uL Bond # (Auto) 1.08 H (0.11-0.59) K/uL D-Dimer 2720 H* (0-500) ug/L FEU VBG pH (7.36-7.41) VBG pCO2 (38-50) mmHg Sodium 126 L (136-145) mmol/L Chloride 95 L (98-107) mmol/L BUN 23 H (7-18) mg/dl BUN/Creatinine Ratio 33.1 H (10-20) Calcium 7.9 L (8.5-10.1) mg/dl Total Protein 6.0 L (6.4-8.2) gm/dl Albumin 1.7 L (3.4-5.0) gm/dl Globulin 4.3 H (2.5-4.0) gm/dl Albumin/Globulin Ratio 0.4 L (0.9-2) Lipase 39 L (73-393) U/L 09/21/21 Range/Units 10:37 WBC (4.8-10.8) K/uL RBC (4.7-6.1) M/uL Hgb (14.0-18.0) g/dL Hct (42-52) % RDW Std Deviation (36.4-46.3) fL RDW Coeff of Jayjay (11.5-14.5) % Plt Count (130-400) K/uL Neut # (Auto) (1.4-6.5) K/uL Lymph # (Auto) (1.2-3.4) K/uL Bond # (Auto) (0.11-0.59) K/uL D-Dimer (0-500) ug/L FEU VBG pH 7.44 H (7.36-7.41) VBG pCO2 36 L (38-50) mmHg Sodium (136-145) mmol/L Chloride (98-107) mmol/L BUN (7-18) mg/dl BUN/Creatinine Ratio (10-20) Calcium (8.5-10.1) mg/dl Total Protein (6.4-8.2) gm/dl Albumin (3.4-5.0) gm/dl Globulin (2.5-4.0) gm/dl Albumin/Globulin Ratio (0.9-2) Lipase (73-393) U/L Diagnostic Findings XR chest 1V portable CLINICAL HISTORY: Chest Pain. COMPARISON STUDY: 07/16/2021 TECHNIQUE: 1 view of the chest FINDINGS: Single frontal view of the chest demonstrates the heart to again be mildly enlarged. There is increased density in retrocardiac region with the findings characteristic of atelectasis versus early infiltrate. The right hemithorax is clear. There is haziness involving the left hemithorax when compared to the right characteristic of pleural fluid layering along the posterior gutter. There is no evidence for vascular congestion. There is no acute osseous pathology. IMPRESSION: Increased retrocardiac density characteristic of atelectasis versus early infiltrate. Additional findings suspicious for left pleural fluid layering along the posterior gutter. Follow-up PA and lateral radiographs would be helpful for further evaluation. CT angio chest PE protocol CLINICAL HISTORY: Shortness of breath. Evaluate for pulmonary embolus oral chest from 09/21/2021 COMPARISON STUDY: No previous studies for comparison. CT DOSE: 1435.93 mGy.cm TECHNIQUE: CT Angio of the chest was performed.followed by image post processing with coronal, and sagittal MIP reformats. Contrast Volume: Optiray 320, 119 ml FINDINGS: Vasculature: There is homogeneous perfusion of the pulmonary vasculature bilaterally. No intraluminal filling defects or evidence for pulmonary embolus is seen. Airway: The airway is clear. No endobronchial lesion is identified. Lungs and pleural: Compared to the portable chest radiograph, there are actually moderate-sized bilateral pleural effusions, left greater than right with compressive atelectasis/collapse involving the left lower lobe. The lungs are otherwise clear of acute alveolar opacities, air bronchograms or pulmonary nodules. Mediastinum: There is no evidence for pathologic adenopathy. The heart size is within normal limits. There is coronary artery calcification. The thoracic aorta is within normal limits. Atelectatic calcifications are seen involving the aortic arch and origin of great vessels. There is no evidence for pericardial effusion. Upper abdomen:The adrenal glands are normal bilaterally. Osseous structures: There is no acute osseous pathology. Impression: 1. No CTA evidence for pulmonary embolus. 2. Compared to the portable chest radiograph, there are actually moderate-sized bilateral pleural effusions, left greater than right with compressive atelectasis/collapse of the left lung base. 3. No confluent alveolar opacities or bronchograms. Medications Administered ER Medications Given: Levaquin 750mg IV Lasix 40mg IV ECG Indication: SOB/dyspnea Rate (beats per minute): 84 Rhythm: atrial fibrillation Comparison ECG Date: from (July 05, 2021) Change: the following changes noted (a. fib replaced junctional rhythm) Code Status & VTE Plan Code Status Full VTE Prophylaxis Plan VTE Prophylaxis will be ordered: Yes PG Care Time/CCT Total # of Minutes Spent Total Time Spent with Patient: Total time spent is greater than 50% in coordination of care (as documented) at patient's floor/unit and/or counseling patient: Coding Level of Care Code 60375 Initial Inpt Care Lvl 3 Diagnoses Acute respiratory failure with hypoxia J96.01 Heart failure with mid-range ejection fraction I50.9 Leukocytosis D72.829 Leukocytosis type: unspecified Hypertension I10 Hypertension type: essential hypertension Acute hyponatremia E87.1 BPH (benign prostatic hyperplasia) N40.0 Lower urinary tract symptom presence: symptoms absent Paroxysmal atrial fibrillation I48.0 Rheumatoid arthritis M06.9 (1) Leukocytosis Leukocytosis type: unspecified Qualified Code(s): D72.829 - Elevated white blood cell count, unspecified (2) Hypertension Hypertension type: essential hypertension Qualified Code(s): I10 - Essential (primary) hypertension (3) BPH (benign prostatic hyperplasia) Lower urinary tract symptom presence: symptoms absent Qualified Code(s): N40.0 - Benign prostatic hyperplasia without lower urinary tract symptoms
--- NOTE | 2021-09-21 13:49 | CT Scan Report ---
CT head/brain wo con CLINICAL HISTORY: Altered mental state COMPARISON STUDY: 06/12/2021 CT DOSE: 1028.89 mGy.cm TECHNIQUE: Standard CT of the Brain was performed without IV contrast. A dose lowering technique was utilized adhering to the principles of ALARA. FINDINGS: Extraaxial space: There is no evidence for subdural hematoma. There are no extra-axial fluid collecti ons. Ventricles and cisterns: The ventricles are normal in size and configuration. There is no evidence f or midline shift or mass effect. Parenchyma: There is no subarachnoid or intraparenchymal hemorrhage. There is no evidence for an acu te infarct or cerebral edema. There is mild cerebral cortical atrophy present. There is homogeneous a ttenuation of the brain parenchyma. There are no gross mass lesions. Osseous structures: There is no evidence for an acute fracture. The visualized paranasal sinuses are clear. The mastoid air cells are clear bilaterally. Soft tissues: There is no evidence for focal soft tissue swelling. IMPRESSION: No acute intracerebral pathology. Mild cerebral cortical atrophy is again seen. ACT 112: Negative or not required by law. Electronically signed by: Alex Lobato M.D. 09/21/2021 1:47 PM
[2021-09-21 15:56] LABS: Appearance Urine Clear (Clear); Bilirubin Urine Negative (Negative); Blood Urine Negative (Negative); Color Urine Yellow; Glucose Urine UA Negative (Negative); Ketones Urine Negative (Negative); Leukocyte Esterase Urine Negative (Negative); Nitrite Urine Negative (Negative); Protein Urine Negative (Negative); Specific Gravity Urine 1.019 (1.000-1.030); Urobilinogen Urine Negative (Negative)
[2021-09-21] MEDS ORDERED: POLYETHYLENE (MIRALAX) 17 GM PACK PO PRN (16:01)
[2021-09-21] MEDS ORDERED: ONDANSETRON INJ 2 MG/ML 2 ML VIAL IV PRN (16:01)
[2021-09-21] MEDS: DOCUSATE SODIUM 100 MG CAP PO SCH (17:56)
[2021-09-21] MEDS: AMIODARONE 200 MG TAB PO SCH (17:56)
[2021-09-21] MEDS: BACLOFEN 10 MG TAB PO SCH ×2 (17:56→20:13)
[2021-09-21] MEDS: DICLOFENAC SOD 1% GEL 100 GM TUBE EXT SCH ×2 (17:56→20:16)
[2021-09-21] MEDS: rOPINIRole HCL 2 MG TABLET PO SCH (17:57)
[2021-09-21] MEDS: APIXABAN 5 MG TABLET PO SCH (20:13)
[2021-09-21] MEDS: ATORVASTATIN 40 MG TAB PO SCH (20:13)
[2021-09-22 06:15] LABS: Eosinophils # (auto) 0.01 K/uL (0-0.5); Eosinophils % (auto) 0.1 %; Hematocrit (blood only) 25.7 % (42-52); Hemoglobin 8.1 g/dL (14.0-18.0); Immature Granulocytes # (auto) 0.02 K/uL (0.00-0.02); Immature Granulocytes % (auto) 0.2 %; Lymphocytes % (auto) 4.7 %; Mean Corpuscular Hemoglobin 26.1 pg (25-34); Mean Corpuscular Hgb Conc 31.5 g/dL (32-36); Mean Corpuscular Volume 82.9 fL (80-100); Mean Platelet Volume 7.9 fL (7.4-10.4); Monocytes # (auto) 0.76 K/uL (0.11-0.59); Monocytes % (auto) 5.9 %; Neutrophils # (auto) 11.46 K/uL (1.4-6.5); Neutrophils % (auto) 89.1 %; Platelet Count 400 K/uL (130-400); RDW Standard Deviation 55.2 fL (36.4-46.3); White Blood Count 12.85 K/uL (4.8-10.8)
[2021-09-22 06:52] LABS: BUN Creatinine Ratio 37.4 (10-20); Calcium 7.8 mg/dl (8.5-10.1); Creatinine Clr Calc Pharmacy 111.8 ml/min; Est GFR (African American) 117.5 ml/min; Est GFR (Non-African American) 101.4 ml/min; Magnesium 2.1 mg/dl (1.8-2.4); Potassium 3.8 mmol/L (3.5-5.1)
[2021-09-22] MEDS: predniSONE 5 MG TAB PO SCH (09:00)
[2021-09-22] MEDS: METOPROLOL SUCC 50MG EXT REL TAB PO SCH (09:00)
[2021-09-22] MEDS ORDERED: cefTRIAXone SODIUM 2,000 MG in DEXTROSE 5% 50 ML IV SCH (09:00)
[2021-09-22] MEDS: TAMSULOSIN HCL 0.4 MG CAP PO SCH (09:00)
[2021-09-22] MEDS: BACLOFEN 10 MG TAB PO SCH ×3 (09:01→19:54)
[2021-09-22] MEDS: FERROUS SULFATE 325 MG TAB PO SCH (09:02)
[2021-09-22] MEDS: PANTOprazole 40 MG TAB PO SCH (09:02)
[2021-09-22] MEDS: DICLOFENAC SOD 1% GEL 100 GM TUBE EXT SCH ×4 (09:03→19:56)
[2021-09-22] MEDS: FUROSEMIDE 40 MG/4 ML VIAL IV SCH (09:03)
[2021-09-22] MEDS: AMIODARONE 200 MG TAB PO SCH ×2 (09:04→16:52)
[2021-09-22] MEDS: DOCUSATE SODIUM 100 MG CAP PO SCH ×2 (09:04→16:53)
[2021-09-22] MEDS: rOPINIRole HCL 2 MG TABLET PO SCH ×2 (09:04→19:56)
[2021-09-22] MEDS: POLYETHYLENE (MIRALAX) 17 GM PACK PO SCH (09:04)
[2021-09-22] MEDS: APIXABAN 5 MG TABLET PO SCH ×2 (09:05→19:56)
[2021-09-22] MEDS ORDERED: PIPERACILL/TAZOBAC CONSULT ACTIVE PRN (09:53)
[2021-09-22] MEDS ORDERED: VANCOMYCIN CONSULT ACTIVE PRN (09:53)
[2021-09-22] MEDS ORDERED: VANCOMYCIN HCL 1,500 MG in SODIUM CHLORIDE 0.9% 500 ML IV ONE (09:53)
--- NOTE | 2021-09-22 09:53 | Hospitalist Progress Note ---
Date of Service September 22, 2021 Assessment & Plan (1) Acute respiratory failure with hypoxia: Plan: Probably multifactorial A combination of CHF exacerbation, pleural effusion Patient currently on BIPAP Continue diuresis with IV lasix If no change in pelural effusion, it may need thoracentesis (2) Heart failure with mid-range ejection fraction: Plan: Decompensated Continue IV lasix Monitor I/O, daily weights (3) Leukocytosis: Plan: Repaet CBC shows worsening leucocytosis Although no radiological sign of PNA, but will empirically cover with vanc and Zosyn Await blood cultures, prelim shows gram positive cocci in clusters (4) Hypertension: Plan: Hold lisinopril to allow up titration of Lasix Lasix as above (5) Acute hyponatremia: Plan: Suspect secondary to acute heart failure. Monitor BMP (6) BPH (benign prostatic hyperplasia): Plan: Continue tamsulosin 0.4mg PO daily (7) Paroxysmal atrial fibrillation: Plan: Rate controlled Continue metoprolol succinate with hold parameters Continue amiodarone Continue Eliquis for stroke prophylaxis (8) Rheumatoid arthritis: Plan: Continue prednisone 5mg PO daily Plan: VTE Prophylaxis - Eliquis Diet - NPO Disposition - admit to PCU Admission and Anticipated Discharge Date Admission Date: September 21, 2021 Subjective patient seen and examined today, on BIPAP, confused Review of Systems Review of Systems: Unobtainable Physical Exam Physical Exam: The patient is confused, on BIPAP HEENT--PERRL, EOMI, mucous membranes and oropharynx mildly dry Neck--supple. No JVD. No bruits. Thyroid normal, trachea midline, no adenopathy. Heart--normal S1 and S2. No murmurs, rubs or gallops. Lungs--Reduced air entry on auscultation Abdomen--normal bowel sounds and soft. Mild epigastric and left sided abdominal pain Extremities--no cyanosis or clubbing. No edema. Dermatologic--normal skin turgor, normal color, no abnormal lymph nodes, no rash. Neurologic--cranial nerves II through XII grossly intact. confused Rheumatologic--normal range of motion. Psychiatric--normal affect. Results & Data Results & Data ([facility]) Vital Signs (Past 12 Hours) Vital Signs Temp Pulse Pulse Resp BP Pulse Ox 09/22/21 08:00 99.0 F 100 H 23 98/57 L 87 L 09/22/21 05:30 84 21 100 09/22/21 05:15 85 22 100 09/22/21 05:00 99.3 F 91 H 83 24 111/57 L 89 L 09/22/21 04:45 85 17 96 09/22/21 04:30 81 24 73 L 09/22/21 04:19 94 H 26 H 98 09/22/21 04:15 83 10 L 100 09/22/21 04:03 91 H 20 98/54 L 88 L 09/22/21 04:00 90 92 H 25 H 108/64 82 L 09/22/21 03:45 88 22 92 09/22/21 03:40 98.6 F 93 H 20 102/61 90 09/22/21 03:37 82 19 75 L 09/22/21 03:34 96 H 09/22/21 01:42 78 18 95 09/21/21 23:25 85 24 94/68 L 92 Laboratory Results Chest X-Ray 09/21/21 09:52 XR chest 1V portable CLINICAL HISTORY: Chest Pain. COMPARISON STUDY: 07/16/2021 TECHNIQUE: 1 view of the chest FINDINGS: Single frontal view of the chest demonstrates the heart to again be mildly enlarged. There is increased density in retrocardiac region with the findings characteristic of atelectasis versus early infiltrate. The right hemithorax is clear. There is haziness involving the left hemithorax when compared to the right characteristic of pleural fluid layering along the posterior gutter. There is no evidence for vascular congestion. There is no acute osseous pathology. IMPRESSION: Increased retrocardiac density characteristic of atelectasis versus early infiltrate. Additional findings suspicious for left pleural fluid layering along the posterior gutter. Follow-up PA and lateral radiographs would be helpful for further evaluation. ACT 112: Negative or not required by law. Electronically signed by: Alex Lobato M.D. 09/21/2021 10:10 AM Chest CTA 09/21/21 10:31 CT angio chest PE protocol CLINICAL HISTORY: Shortness of breath. Evaluate for pulmonary embolus oral chest from 09/21/2021 COMPARISON STUDY: No previous studies for comparison. CT DOSE: 1435.93 mGy.cm TECHNIQUE: CT Angio of the chest was performed.followed by image post processing with coronal, and sagittal MIP reformats. Contrast Volume: Optiray 320, 119 ml FINDINGS: Vasculature: There is homogeneous perfusion of the pulmonary vasculature bilaterally. No intraluminal filling defects or evidence for pulmonary embolus is seen. Airway: The airway is clear. No endobronchial lesion is identified. Lungs and pleural: Compared to the portable chest radiograph, there are actually moderate-sized bilateral pleural effusions, left greater than right with compressive atelectasis/collapse involving the left lower lobe. The lungs are otherwise clear of acute alveolar opacities, air bronchograms or pulmonary nodules. Mediastinum: There is no evidence for pathologic adenopathy. The heart size is within normal limits. There is coronary artery calcification. The thoracic aorta is within normal limits. Atelectatic calcifications are seen involving the aortic arch and origin of great vessels. There is no evidence for pericardial effusion. Upper abdomen:The adrenal glands are normal bilaterally. Osseous structures: There is no acute osseous pathology. Impression: 1. No CTA evidence for pulmonary embolus. 2. Compared to the portable chest radiograph, there are actually moderate-sized bilateral pleural effusions, left greater than right with compressive atelectasis/collapse of the left lung base. 3. No confluent alveolar opacities or bronchograms. ACT 112: Negative or not required by law. Electronically signed by: Alex Lobato M.D. 09/21/2021 11:[address] 09/21/21 12:09 CT head/brain wo con CLINICAL HISTORY: Altered mental state COMPARISON STUDY: 06/12/2021 CT DOSE: 1028.89 mGy.cm TECHNIQUE: Standard CT of the Brain was performed without IV contrast. A dose lowering technique was utilized adhering to the principles of ALARA. FINDINGS: Extraaxial space: There is no evidence for subdural hematoma. There are no extra-axial fluid collections. Ventricles and cisterns: The ventricles are normal in size and configuration. There is no evidence for midline shift or mass effect. Parenchyma: There is no subarachnoid or intraparenchymal hemorrhage. There is no evidence for an acute infarct or cerebral edema. There is mild cerebral cortical atrophy present. There is homogeneous attenuation of the brain parenchyma. There are no gross mass lesions. Osseous structures: There is no evidence for an acute fracture. The visualized paranasal sinuses are clear. The mastoid air cells are clear bilaterally. Soft tissues: There is no evidence for focal soft tissue swelling. IMPRESSION: No acute intracerebral pathology. Mild cerebral cortical atrophy is again seen. ACT 112: Negative or not required by law. Electronically signed by: Alex Lobato M.D. 09/21/2021 1:47 PM PG Care Time/CCT Total # of Minutes Spent Total Time Spent with Patient: Total time spent is greater than 50% in coordination of care (as documented) at patient's floor/unit and/or counseling patient: Coding Level of Care Code 57824 Subseq Hosp Care Lvl 2 Diagnoses Acute respiratory failure with hypoxia J96.01 Heart failure with mid-range ejection fraction I50.9 Leukocytosis D72.829 Leukocytosis type: unspecified Hypertension I10 Hypertension type: essential hypertension Acute hyponatremia E87.1 BPH (benign prostatic hyperplasia) N40.0 Lower urinary tract symptom presence: symptoms absent Paroxysmal atrial fibrillation I48.0 Rheumatoid arthritis M06.9 (1) Leukocytosis Leukocytosis type: unspecified Qualified Code(s): D72.829 - Elevated white blood cell count, unspecified (2) Hypertension Hypertension type: essential hypertension Qualified Code(s): I10 - Essential (primary) hypertension (3) BPH (benign prostatic hyperplasia) Lower urinary tract symptom presence: symptoms absent Qualified Code(s): N40.0 - Benign prostatic hyperplasia without lower urinary tract symptoms
[2021-09-22] MEDS ORDERED: VANCOMYCIN HCL 1,750 MG in SODIUM CHLORIDE 0.9% 500 ML IV ONE (10:15)
[2021-09-22] MEDS ORDERED: PIPERACILLIN/TAZOBACTAM 3.375 GM in DEXTROSE 5% 100 ML IV ONE (10:30)
--- NOTE | 2021-09-22 11:47 | Pharmacy Report ---
Pharmacy Vanc AUC Short Note - Date of Service September 22, 2021 - Assessment & Plan Assessment 66 year old M receiving IV vancomycin and zosyn for treatment of pulmonary infection/bacteremia. MRSA nasal swab ordered. 09/21 BCx (+) gram positive cocci in clusters in both bottles. Renal function stable. Day # 1 of antimicrobial therapy. Plan Vancomycin * AUC/SONIDO is the preferred PK/PD target for vancomycin * AUC guided dosing is effective and associated with decreased risk of nephrotoxicity compared to traditional trough targets * Trough level of 16 mcg/mL is predicted to achieve target AUC/SONIDO of 400-600 mg/L.hr and may be associated with a 11 % risk of nephrotoxicity * S/p vancomcyin load of 1750mg. Will begin maintenance regimen of 1250mg IV q12h. * Will obtain a trough around steady state. Pharmacy will continue to follow and will adjust dose/frequency as necessary. Thank you.
[2021-09-22] MEDS: VANCOMYCIN HCL 1,250 MG in SODIUM CHLORIDE 0.9% 250 ML IV SCH (16:51)
[2021-09-22] MEDS: PIPERACILLIN/TAZOBACTAM 3.375 GM in DEXTROSE 5% 100 ML IV SCH (16:51)
[2021-09-22] MEDS: ACETAMINOPHEN 325 MG TAB PO PRN (19:54)
[2021-09-22] MEDS: ATORVASTATIN 40 MG TAB PO SCH (19:56)
--- NOTE | 2021-09-22 22:22 | XCELERA ---
[id number]
--- NOTE | 2021-09-22 23:04 | Electrocardiogram Report ---
Test Reason : Blood Pressure : / mmHG Vent. Rate : 084 BPM Atrial Rate : 060 BPM P-R Int : 000 ms QRS Dur : 116 ms QT Int : 402 ms P-R-T Axes : 000 061 -55 degrees QTc Int : 475 ms Poor data quality, interpretation may be adversely affected Atrial fibrillation Low voltage QRS Cannot rule out Anterior infarct (cited on or before 05-JUL-2021) Nonspecific T wave abnormality Abnormal ECG When compared with ECG of 05-JUL-2021 23:13, Vent. rate has increased BY 45 BPM Questionable change in initial forces of Anteroseptal leads QT has lengthened Reconfirmed by Jorge Davis ([id number]) on 09/22/2021 11:04:42 PM Referred By: REFERRED SELF Confirmed By:Jorge Davis
[2021-09-23] MEDS: PIPERACILLIN/TAZOBACTAM 3.375 GM in DEXTROSE 5% 100 ML IV SCH ×3 (01:22→16:09)
[2021-09-23 05:13] LABS: Hematocrit (blood only) 26.8 % (42-52); Hemoglobin 8.6 g/dL (14.0-18.0); Mean Corpuscular Hemoglobin 26.4 pg (25-34); Mean Corpuscular Hgb Conc 32.1 g/dL (32-36); Mean Corpuscular Volume 82.2 fL (80-100); Mean Platelet Volume 7.9 fL (7.4-10.4); Platelet Count 386 K/uL (130-400); RDW Coefficient of Variation 17.8 % (11.5-14.5); Red Blood Count 3.26 M/uL (4.7-6.1)
[2021-09-23 05:37] LABS: BUN Creatinine Ratio 36.8 (10-20); Calcium 7.8 mg/dl (8.5-10.1); Creatinine Clr Calc Pharmacy 102.3 ml/min; Est GFR (African American) 113.3 ml/min; Est GFR (Non-African American) 97.8 ml/min; Potassium 3.4 mmol/L (3.5-5.1)
[2021-09-23] MEDS: VANCOMYCIN HCL 1,250 MG in SODIUM CHLORIDE 0.9% 250 ML IV SCH ×3 (06:22→20:44)
[2021-09-23] MEDS: BACLOFEN 10 MG TAB PO SCH ×3 (08:29→20:43)
[2021-09-23] MEDS: AMIODARONE 200 MG TAB PO SCH ×2 (08:29→16:06)
[2021-09-23] MEDS: rOPINIRole HCL 2 MG TABLET PO SCH ×2 (08:30→20:42)
[2021-09-23] MEDS: predniSONE 5 MG TAB PO SCH (08:32)
[2021-09-23] MEDS: APIXABAN 5 MG TABLET PO SCH ×2 (08:33→20:42)
[2021-09-23] MEDS: POLYETHYLENE (MIRALAX) 17 GM PACK PO SCH (08:33)
[2021-09-23] MEDS: FERROUS SULFATE 325 MG TAB PO SCH (08:33)
[2021-09-23] MEDS: DOCUSATE SODIUM 100 MG CAP PO SCH ×2 (08:34→16:10)
[2021-09-23] MEDS: DICLOFENAC SOD 1% GEL 100 GM TUBE EXT SCH ×4 (08:36→20:43)
[2021-09-23] MEDS: FUROSEMIDE 40 MG/4 ML VIAL IV SCH (08:36)
[2021-09-23] MEDS: METOPROLOL SUCC 50MG EXT REL TAB PO SCH (08:36)
[2021-09-23] MEDS: PANTOprazole 40 MG TAB PO SCH (08:36)
[2021-09-23] MEDS: TAMSULOSIN HCL 0.4 MG CAP PO SCH (08:37)
[2021-09-23] MEDS ORDERED: POTASSIUM CHLORIDE CRTAB 20 MEQ TABCR PO STA (08:40)
[2021-09-23] MEDS ORDERED: MAGNESIUM HYDROXIDE SUSP 30 ML UDC PO PRN (11:27)
[2021-09-23] MEDS ORDERED: predniSONE 5 MG TAB PO ONE (11:30)
--- NOTE | 2021-09-23 11:41 | Hospitalist Progress Note ---
Date of Service September 23, 2021 Assessment & Plan (1) Metabolic encephalopathy: Plan: Secondary to hypoxia from CHF but also possibly due to bacteremia as below Improving today but remains somewhat confused at times Continue treating Bactrim with antibiotics Continue to treat CHF with diuresis-hypoxia now resolved (2) Acute respiratory failure with hypoxia: Plan: Probably multifactorial A combination of CHF exacerbation, pleural effusion Patient initially on BIPAP, now weaned off to room air Continue diuresis with IV lasix 40 mg once daily (3) CHF (congestive heart failure): Plan: With acute on chronic diastolic CHF Most recent echocardiogram here with EF 40-45%, resolution of pericardial effusion, mildly dilated RV proBNP elevated at 32,000 on admission and now down to 19,000 Was hypoxic requiring BiPAP and now on room air after diuresis Continue diuresis with Lasix 40 mg IV once daily Replace potassium today with 40 mEq p.o. 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 Improving with diuresis Monitor BMP (8) BPH (benign prostatic hyperplasia): Plan: Continue tamsulosin 0.4mg PO daily (9) Paroxysmal atrial fibrillation: Plan: Rate controlled Continue metoprolol succinate with hold parameters Continue amiodarone Continue Eliquis for stroke prophylaxis (10) Rheumatoid arthritis: Plan: Continue prednisone-unclear what home dose is as he was discharged on 10 mg daily just 2 months ago Increase prednisone to 10 mg daily for now Follows with rheumatology as an outpatient Hold Enbrel while actively bacteremic (11) Anemia: Plan: Hemoglobin low but stable from previous at 8.6, borderline microcytic Other cell lines normal Check iron studies in the morning and replace as needed (12) Hypokalemia: Plan: Replace with potassium chloride 40 mEq Follow BMP magnesium in the morning Secondary to IV Lasix (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 Patient requests an anesthetic for all over his body. He reports that he was playing football yesterday and was knocked unconscious. I reminded him that he lives in a [facility] but that he did pass out as per reports. He denies any shortness of breath. No nausea and he is eating. Telemetry with atrial fibrillation with controlled rates Review of Systems Review of Systems: All systems reviewed & are unremarkable except as noted in HPI & below Physical Exam Constitutional: WD/WN, vitals as above Eyes: + anicteric sclerae Neck: trachea midline, no thyromegaly Respiratory: normal respiratory effort, lungs clear to auscultation Cardiovascular: Rate/Rhythm: regular rate and + irregularly irregular Heart Sounds: no murmur Extremities: + edema (trace edema feet bilat) Chest (Breasts): Chest: normal inspection of chest Gastrointestinal (Abdomen): normal bowel sounds, soft, nontender, no hepatosplenomegaly Musculoskeletal: Extremities: + extremities abnormal to inspection (Flexion contractures in legs bilaterally), no cyanosis and no clubbing Skin: no rashes, warm and dry + lesion (Left heel with purplish discoloration) and + wound (Multiple scabbed over abrasions over legs bilaterally) Neurologic: moves all extremities and awake; no focal motor deficits Psychiatric: Orientation: alert, oriented to person, oriented to place and cooperative Lymphatic: no lymphedema Results & Data Results & Data ([facility]) Vital Signs (Past 12 Hours) Vital Signs Temp Pulse Resp BP Pulse Ox 09/23/21 10:00 91 H 15 101/60 94 09/23/21 08:00 36.7 C 88 18 108/65 97 09/23/21 03:00 36.6 C 93 H 16 124/71 100 Laboratory Results 09/23/21 09/23/21 Range/Units 04:50 04:50 WBC 9.10 (4.8-10.8) K/uL RBC 3.26 L (4.7-6.1) M/uL Hgb 8.6 L (14.0-18.0) g/dL Hct 26.8 L (42-52) % MCV 82.2 (80-100) fL MCH 26.4 (25-34) pg MCHC 32.1 (32-36) g/dL RDW Std Deviation 54.0 H (36.4-46.3) fL RDW Coeff of Jayjay 17.8 H (11.5-14.5) % Plt Count 386 (130-400) K/uL MPV 7.9 (7.4-10.4) fL Sodium 130 L (136-145) mmol/L Potassium 3.4 L (3.5-5.1) mmol/L Chloride 98 (98-107) mmol/L Carbon Dioxide 24 (21-32) mmol/L Anion Gap 8.0 (3-11) BUN 26 H (7-18) mg/dl Creatinine 0.71 (0.6-1.4) mg/dl Est Cr Clr Drug Dosing 102.3 ml/min Est GFR ( Amer) 113.3 ml/min Est GFR (Non-Af Amer) 97.8 ml/min BUN/Creatinine Ratio 36.8 H (10-20) Glucose 71 (70-99) mg/dl Calcium 7.8 L (8.5-10.1) mg/dl PG Care Time/CCT Total # of Minutes Spent Total Time Spent with Patient: Total time spent is greater than 50% in coordination of care (as documented) at patient's floor/unit and/or counseling patient: Coding Level of Care Code 55129 Subseq Hosp Care Lvl 3 Diagnoses Acute respiratory failure with hypoxia J96.01 Leukocytosis D72.829 Leukocytosis type: unspecified Hypertension I10 Hypertension type: essential hypertension Acute hyponatremia E87.1 BPH (benign prostatic hyperplasia) N40.0 Lower urinary tract symptom presence: symptoms absent Paroxysmal atrial fibrillation I48.0 Rheumatoid arthritis M06.9 Bacteremia R78.81 Anemia D50.8 Anemia type: iron deficiency Iron deficiency anemia type: inadequate dietary iron intake Hypokalemia E87.6 Odontoid fracture S12.100A Paroxysmal ventricular tachycardia I47.2 CHF (congestive heart failure) I50.9 Heart failure chronicity: unspecified Heart failure type: unspecified Metabolic encephalopathy G93.41 (1) BPH (benign prostatic hyperplasia) Lower urinary tract symptom presence: symptoms absent Qualified Code(s): N40.0 - Benign prostatic hyperplasia without lower urinary tract symptoms (2) Anemia Anemia type: iron deficiency Iron deficiency anemia type: inadequate dietary iron intake Qualified Code(s): D50.8 - Other iron deficiency anemias (3) Leukocytosis Leukocytosis type: unspecified Qualified Code(s): D72.829 - Elevated white blood cell count, unspecified (4) Hypertension Hypertension type: essential hypertension Qualified Code(s): I10 - Essential (primary) hypertension (5) CHF (congestive heart failure) Heart failure chronicity: unspecified Heart failure type: unspecified Quali fied Code(s): I50.9 - Heart failure, unspecified
[2021-09-23] MEDS: HYDROCODONE/ACETAMOPHEN 5/325MG TAB PO PRN (16:04)
[2021-09-23] MEDS: ATORVASTATIN 40 MG TAB PO SCH (20:42)
[2021-09-23] MEDS ORDERED: KETOROLAC TROMETHAMINE 15 MG/ML VIAL IV ONE (22:01)
[2021-09-24] MEDS: PIPERACILLIN/TAZOBACTAM 3.375 GM in DEXTROSE 5% 100 ML IV SCH ×2 (01:28→09:12)
[2021-09-24] MEDS: HYDROCODONE/ACETAMOPHEN 5/325MG TAB PO PRN ×4 (03:53→21:40)
[2021-09-24] MEDS ORDERED: VANCOMYCIN TROUGH ONE (04:00)
[2021-09-24 05:07] LABS: Eosinophils # (auto) 0.04 K/uL (0-0.5); Eosinophils % (auto) 0.5 %; Hematocrit (blood only) 26.2 % (42-52); Hemoglobin 8.5 g/dL (14.0-18.0); Immature Granulocytes # (auto) 0.03 K/uL (0.00-0.02); Immature Granulocytes % (auto) 0.4 %; Lymphocytes # (auto) 1.11 K/uL (1.2-3.4); Lymphocytes % (auto) 14.8 %; Mean Corpuscular Hemoglobin 26.5 pg (25-34); Mean Corpuscular Hgb Conc 32.4 g/dL (32-36); Mean Corpuscular Volume 81.6 fL (80-100); Mean Platelet Volume 8.1 fL (7.4-10.4); Monocytes # (auto) 0.58 K/uL (0.11-0.59); Monocytes % (auto) 7.8 %; Neutrophils # (auto) 5.72 K/uL (1.4-6.5); Neutrophils % (auto) 76.5 %; Platelet Count 419 K/uL (130-400); RDW Coefficient of Variation 17.5 % (11.5-14.5); Red Blood Count 3.21 M/uL (4.7-6.1); White Blood Count 7.48 K/uL (4.8-10.8)
[2021-09-24] MEDS: VANCOMYCIN HCL 1,250 MG in SODIUM CHLORIDE 0.9% 250 ML IV SCH (05:19)
[2021-09-24 05:25] LABS: BUN Creatinine Ratio 36.8 (10-20); Calcium 7.4 mg/dl (8.5-10.1); Creatinine Clr Calc Pharmacy 85.5 ml/min; Est GFR (African American) 105.2 ml/min; Est GFR (Non-African American) 90.8 ml/min; Potassium 3.6 mmol/L (3.5-5.1)
[2021-09-24 05:30] LABS: C Reactive Protein 11.6 mg/dl (0-0.29); Ferritin 685.1 ng/ml (8-388)
[2021-09-24] MEDS ORDERED: POTASSIUM CHLORIDE CRTAB 20 MEQ TABCR PO STA (07:27)
[2021-09-24] MEDS: DOCUSATE SODIUM 100 MG CAP PO SCH ×2 (09:03→17:32)
[2021-09-24] MEDS: BACLOFEN 10 MG TAB PO SCH ×3 (09:05→21:41)
[2021-09-24] MEDS: predniSONE 10 MG TABLET PO SCH (09:07)
[2021-09-24] MEDS: FERROUS SULFATE 325 MG TAB PO SCH (09:08)
[2021-09-24] MEDS: AMIODARONE 200 MG TAB PO SCH ×2 (09:08→17:31)
[2021-09-24] MEDS: APIXABAN 5 MG TABLET PO SCH ×2 (09:08→21:41)
[2021-09-24] MEDS: PANTOprazole 40 MG TAB PO SCH (09:09)
[2021-09-24] MEDS: TAMSULOSIN HCL 0.4 MG CAP PO SCH (09:09)
[2021-09-24] MEDS: METOPROLOL SUCC 50MG EXT REL TAB PO SCH (09:09)
[2021-09-24] MEDS: rOPINIRole HCL 2 MG TABLET PO SCH ×2 (09:10→21:42)
[2021-09-24] MEDS: POLYETHYLENE (MIRALAX) 17 GM PACK PO SCH (09:11)
[2021-09-24] MEDS: DICLOFENAC SOD 1% GEL 100 GM TUBE EXT SCH ×5 (09:11→21:42)
[2021-09-24] MEDS: FUROSEMIDE 40 MG/4 ML VIAL IV SCH (09:12)
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
[2021-09-24] MEDS: ceFAZolin 2000MG 2,000 MG/15 ML SYR IV SCH ×2 (14:07→21:40)
[2021-09-24] MEDS: ATORVASTATIN 40 MG TAB PO SCH (21:30)
[2021-09-25] MEDS: ceFAZolin 2000MG 2,000 MG/15 ML SYR IV SCH ×3 (06:00→20:50)
[2021-09-25] MEDS ORDERED: VANCOMYCIN HCL 1,500 MG in SODIUM CHLORIDE 0.9% 500 ML IV SCH (06:00)
[2021-09-25 06:27] LABS: Creatinine Clr Calc Pharmacy 103.8 ml/min; Est GFR (Non-African American) 98.3 ml/min
[2021-09-25] MEDS: HYDROCODONE/ACETAMOPHEN 5/325MG TAB PO PRN ×2 (06:35→15:56)
[2021-09-25] MEDS ORDERED: FUROSEMIDE 40 MG/4 ML VIAL IV ONE (07:20)
[2021-09-25 07:48] LABS: BUN Creatinine Ratio 38.1 (10-20); Calcium 8.2 mg/dl (8.5-10.1); Creatinine Clr Calc Pharmacy 99.5 ml/min; Est GFR (Non-African American) 96.7 ml/min; Potassium 3.8 mmol/L (3.5-5.1)
[2021-09-25] MEDS: METOPROLOL SUCC 50MG EXT REL TAB PO SCH (08:23)
[2021-09-25] MEDS: rOPINIRole HCL 2 MG TABLET PO SCH ×2 (08:23→20:43)
[2021-09-25] MEDS: BACLOFEN 10 MG TAB PO SCH ×3 (08:23→20:41)
[2021-09-25] MEDS: AMIODARONE 200 MG TAB PO SCH (08:23)
[2021-09-25] MEDS: APIXABAN 5 MG TABLET PO SCH ×2 (08:24→20:42)
[2021-09-25] MEDS: TAMSULOSIN HCL 0.4 MG CAP PO SCH (08:25)
[2021-09-25] MEDS: FERROUS SULFATE 325 MG TAB PO SCH (08:25)
[2021-09-25] MEDS: DICLOFENAC SOD 1% GEL 100 GM TUBE EXT SCH ×4 (08:25→20:43)
[2021-09-25] MEDS: DOCUSATE SODIUM 100 MG CAP PO SCH ×2 (08:25→16:34)
[2021-09-25] MEDS: PANTOprazole 40 MG TAB PO SCH (08:25)
[2021-09-25] MEDS: POLYETHYLENE (MIRALAX) 17 GM PACK PO SCH (08:25)
[2021-09-25] MEDS: predniSONE 10 MG TABLET PO SCH (08:25)
[2021-09-25] MEDS ORDERED: FUROSEMIDE 20 MG TAB PO SCH (09:00)
--- NOTE | 2021-09-25 12:55 | Cardiology Consultation ---
Date of Consultation September 25, 2021 Assessment & Plan (1) MSSA bacteremia: Etiology uncertain, transesophageal echocardiogram not an option (see below). Cardiac MRI/PET scan and WBC scan not available at [facility]. Patient would be a very poor surgical candidate if he does have an intracardiac abscess, suppressive antibiotics may be preferable. Would ask for ID recommendations regarding transition from IV to oral antibiotics at some point which may need to be administered long-term as nirmala ntenance medication. (2) Odontoid fracture with nonunion: This represents an absolute contraindication to transesophageal echocardiogram, since the neck manipulation often necessary during the procedure could result in quadriplegia or . (3) Persistent atrial fibrillation: He did undergo electrical cardioversion early 2019 for atrial flutter and apparently remained in sinus rhythm until May 2021. At this point, perhaps a rate control strategy would be more appropriate, since he is chronically anticoagulated and apparently has not had recent tachydysrhythmias. Would recommend reducing amiodarone from 200 mg twice daily to 200 mg daily to decrease risk of side effects from long-term amiodarone use. If heart rate increased, could add metoprolol to his regimen to maintain adequate rate control. As noted, eventually taper amiodarone off completely and replace with beta-lois if rate control strategy is pursued. It was not clear to me who is managing his cardiac status, since he has had only inpatient encounters. (4) Heart failure with mid-range ejection fraction: Not clear to what degree his heart failure played a role in his decompensation. His initial chest x-ray does not show pulmonary vascular congestion. There was no evidence of pulmonary embolism on CT. Currently, he does not appear significantly volume overloaded. Although his baseline diuretic dose is furosemide 20 mg p.o. daily as needed, in my experience this dose is often below the threshold necessary for adequate diuresis. Would be preferable to either have a weight-based regimen (which would be difficult given his debilitated status) or if chronic diuretic felt necessary initiate furosemide 40 mg Q2D (every other day). Follow-up chest x-ray will be helpful in reassessing his volume status. (5) Acute respiratory failure with hypoxia: As noted, etiology for this is uncertain. (6) Debilitated: Patient with multiple major comorbidities including ambulatory dysfunction, persistent atrial fibrillation, recurrent heart failure, unexplained acute respiratory failure episodes (has occurred in the past), rheumatoid arthritis, odontoid fracture with nonunion, skin ulcerations, and recurrent bacteremia. At this point, he will be subject to increasingly intrusive interventions with diminishing returns in regards of quality of life. I'm not familiar with his family situation and the patient was unable to have a conversation, but goals of care should be reassessed given both chronic and acute findings (underlying conditions with current bacteremia and recent respiratory failure). History of Present Illness Reason for Consultation: ?SBE Requesting Physician: Lesley Collins MD Attending Physician: Lesley Collins MD History of Present Illness 66-year-old chronically debilitated man with history of rheumatoid arthritis, persistent atrial fibrillation, and chronic heart failure with midrange ejection fraction (EF 40-45%) admitted with hypoxic respiratory failure and confusion on 09/21/2021, who had MSSA bacteremia May 2021 treated with 6 weeks of IV cefazolin, now manifests recurrent MSSA bacteremia raising the possibility of endocarditis. At the time of his original bacteremia, he could not tolerate a ALE because of a cervical fracture. Currently, infectious disease consultation feels that he clinically has subacute bacterial endocarditis and should undergo transesophageal echocardiogram to rule out abscess. However, he apparently has a C1 fracture with nonunion, which would seem to be an absolute contraindication to the neck manipulation often required during a transesophageal echocardiogram. His last ECG showing sinus rhythm appears to have been in May 2021. At this point, he has persistent and perhaps permanent atrial fibrillation with good rate control on amiodarone. He remains on apixaban for anticoagulation with no apparent bleeding problems. His heart failure is improving, he is off BiPAP and able to lie flat with unlabored respirations. He is on supplemental oxygen. He remains somewhat confused and somnolent, I was unable to interview him. He is receiving narcotic analgesics for chronic pain. Allergies Allergy/AdvReac Type Severity Reaction Status Date / Time gluten AdvReac Verified 07/14/21 17:25 Home Medications Medication Instructions Recorded Confirmed Type betamethasone dipropionate 0.05 % 1 applic TOPICAL BID PRN 05/11/21 09/21/21 History lotion atorvastatin 40 mg tablet 40 mg PO HS #0 tab 05/17/21 09/21/21 Rx etanercept 50 mg/mL (1 mL) 50 mg SUBCUT WK #12 ml 05/22/21 09/21/21 Rx subcutaneous syringe (Enbrel) acetaminophen 325 mg tablet 650 mg PO Q4H PRN MDD 3 GRAMS/24 06/05/21 09/21/21 History (Tylenol) HOURS docusate sodium 100 mg capsule 100 mg PO BIDM 06/05/21 09/21/21 History magnesium hydroxide 400 mg/5 mL 30 ml PO DAILY PRN 06/05/21 09/21/21 History oral suspension (Milk of Magnesia) omega-3 fatty acids 1,000 mg 1,000 mg PO BIDM 06/05/21 09/21/21 History capsule (Fish Oil Concentrate) ropinirole 2 mg tablet 2 mg PO Q12H 06/05/21 09/21/21 History multivitamin 1 tab PO DAILY 06/20/21 09/21/21 History apixaban 5 mg tablet (Eliquis) 5 mg PO BID 06/21/21 09/21/21 History albuterol sulfate 2.5 mg INHALATION Q6H PRN #0 ml 07/30/21 09/21/21 Rx amiodarone 200 mg tablet 200 mg PO BIDM #60 tab 07/30/21 09/21/21 Rx amlodipine 5 mg tablet (Norvasc) 5 mg PO QAM #30 tab 07/30/21 09/21/21 Rx baclofen 10 mg tablet 5 mg PO TID #90 tab 07/30/21 09/21/21 Rx diclofenac sodium 1 % topical gel 4 g EXT QID #1 tube 07/30/21 09/21/21 Rx (Voltaren Arthritis Pain) ferrous sulfate 325 mg (65 mg 325 mg PO DAILY #0 tab 07/30/21 09/21/21 Rx iron) tablet furosemide 20 mg tablet (Lasix) 20 mg PO DAILY PRN #30 tab 07/30/21 09/21/21 Rx hydrocodone 5 mg-acetaminophen 325 1 tab PO Q6H PRN #30 tab 07/30/21 09/21/21 Rx mg tablet lisinopril 5 mg tablet (Zestril) 10 mg PO QAM #0 tab 07/30/21 09/21/21 Rx metoprolol succinate 200 mg 200 mg PO DAILY #30 tab 07/30/21 09/21/21 Rx tablet,extended release 24 hr omeprazole 20 mg capsule,delayed 20 mg PO DAILY #30 cap 07/30/21 09/21/21 Rx release polyethylene glycol 3350 17 gram 17 g PO DAILY #30 ea 07/30/21 09/21/21 Rx oral powder packet (Miralax) potassium chloride 10 mEq 10 meq PO DAILY PRN #30 tab 07/30/21 09/21/21 Rx tablet,extended release prednisone 10 mg tablet 10 mg PO DIRECTED #20 tab 07/30/21 09/21/21 Rx tamsulosin 0.4 mg capsule (Flomax) 0.4 mg PO DAILY #30 cap 07/30/21 09/21/21 Rx Patient History Medical History Acute respiratory failure with hypoxemia Acute respiratory failure with hypoxia Atrial flutter Chronic neck pain History of cardioversion Homeless single person Hx of fracture of leg left - not current Joint contracture of right lower leg Odontoid fracture Paroxysmal ventricular tachycardia Pneumonia Rheumatoid arthritis Thoracic vertebral fracture Surgical History History of tooth extraction Family History Father Family history of diabetes mellitus Denies family history of Ovarian cancer Prostate cancer Myocardial infarction Breast cancer Colorectal cancer Social History Smoking Status: Unknown if ever smoked Tobacco Type: Cigarettes Age Started Using Tobacco: 16; Age Quit Using Tobacco: 50; packs per day: 1; Years Smoked: 34; Cigarettes Per Day: 20; Number of Years Since Quit: 15; Second Hand Exposure: No; Hx Alcohol Use: No Hx Substance Use: No Preferred Language: [place] Communication Ability: Effective Visual Impairment: No Limitations Hearing Ability: Normal Layer Out Required: No Beliefs That Will Affect Care: None marital status: Single Current Living Situation: Retirement current occupational status: unemployed How many Children do You have: 3 Feels Safe at Home: Yes Childhood Exposure to Second-Hand Smoke: Yes during the past year weight has: increased > 10 lbs Dental Care, Regularly: Yes Physical Activity Frequency: Does not Exercise Seatbelt Use: always Sunscreen Use: No Assistive Devices: Oxygen - at Night Physical Exam Physical Exam: Chronically debilitated man who was somnolent but briefly arousable, no acute distress. He has been afebrile since admission. Normotensive. Pulse in the 80 bpm range and irregular. Skin: Buttocks ulceration with erythema (see photo image) HEENT: unremarkable. Neck: Jugular venous pulse difficult to assess (he is lying flat), not obviously elevated. No carotid bruits. Lungs: Moderately decreased breath sounds but generally clear. No accessory muscle use. Cardiac: Faint heart tones with irregular rhythm, no obvious murmur. Abdomen: benign. Extremities: no edema, pulses intact. Neurologic: Affect as above. Results & Data ([facility]) Vital Signs (Past 12 Hours) Vital Signs Temp Pulse Pulse Resp BP BP Pulse Ox 09/25/21 11:39 98.6 F 78 27 H 115/67 98 09/25/21 09:00 76 09/25/21 07:37 97.9 F 92 H 21 136/80 09/25/21 03:00 97.7 F 85 18 111/76 97 Laboratory Results Labs notable for hemoglobin 8.5 (stable) with white count normal. Sodium 133 with otherwise normal electrolytes, BUN 28, creatinine 0.73. Troponin negative on admission. Diagnostic Findings ECG on admission showed atrial fibrillation with poor R wave progression and T wave flattening. Echocardiogram 09/22/2021 showed EF 40 to 45% with mild global hypokinesis and severe inferior basal hypokinesis. Mildly dilated RV with mildly reduced systolic function. Mild mitral regurgitation and mild pulmonary hypertension. Compared with June 2021 study, pericardial effusion no longer seen. Chest x-ray on admission showed left pleural effusion without vascular congestion. Chest CT showed no pulmonary embolism, moderate bilateral pleural effusions with compressive atelectasis left base. No alveolar opacities. Neck CT from June 2021 showed apparent nonunited fracture of the odontoid process base. PG Care Time/CCT Total # of Minutes Spent Total Time Spent with Patient: Total time spent is greater than 50% in coordination of care (as documented) at patient's floor/unit and/or counseling patient: Coding Level of Care Code 20962 Inpt Consult Level 4 Diagnoses MSSA bacteremia R78.81; B95.61 Persistent atrial fibrillation I48.19 Heart failure with mid-range ejection fraction I50.9 Acute respiratory failure with hypoxia J96.01 Debilitated R53.81 Odontoid fracture with nonunion S12.110K
--- NOTE | 2021-09-25 15:18 | XRay Report ---
XR chest 1V portable CLINICAL HISTORY: hypoxia TECHNIQUE: Single frontal radiograph of the chest was obtained. Comparison: Comparison is made to chest one view 09/11/2021 FINDINGS: No lines and tubes are seen. Cardiomegaly is noted. Lungs are underinflated. There are bilateral lowe r lung predominant airspace opacities. No evidence of pleural effusion or pneumothorax. IMPRESSION: 1. Bilateral lower lung predominant airspace opacities which may represent atelectasis, pneumonia, a nd/or aspiration. 2. Stable cardiomegaly. ACT 112: Negative or not required by law. Electronically signed by: Ethan Jeffery M.D. 09/25/2021 3:17 PM
--- NOTE | 2021-09-25 15:26 | Hospitalist Progress Note ---
Date of Service September 25, 2021 Assessment & Plan (1) Metabolic encephalopathy: Plan: Secondary to hypoxia from CHF but also possibly due to bacteremia as below in the setting of baseline cognitive impairment Improved compared to admission, but confabulates at times Continue treating Bacteremia with antibiotics Continue to treat CHF with diuresis-hypoxia did return briefly on 09/25 but now improved (2) Acute respiratory failure with hypoxia: Plan: Probably multifactorial A combination of CHF exacerbation, pleural effusion Patient initially on BIPAP, now weaned off to room air but then briefly back on oxygen 09/25-now weaned off again after more IV diuresis Chest x-ray 09/25 again with opacities bilateral atelectasis versus aspiration versus pulmonary edema Gave Lasix 40 mg IV x109/25 Dose IV Lasix daily as needed versus back on Lasix 40 mg every other day as per cardiology recommendation Continue BiPAP at nighttime and with naps (3) CHF (congestive heart failure): Plan: With acute on chronic diastolic CHF Most recent echocardiogram here with EF 40-45%, resolution of pericardial effusion, mildly dilated RV proBNP elevated at 32,000 on admission and now down to 19,000 Was hypoxic requiring BiPAP and now on room air after diuresis with IV lasix Lasix dosing as above Replace potassium as needed Follow BMP and magnesium Hyponatremia now improved with diuresis Daily weights, I's and O's, low-sodium diet (4) Bacteremia: Plan: Growing MSSA in initial blood cultures from 09/21, 09/23, and again with GPC on cultures from 09/24 He has a history of this previously back in 05/2021 which was treated with 6 weeks of IV Ancef He is not able to have a ALE due to 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 ID consult appreciated-we do not have ability to perform PET scan, WBC tagged scan, or cardiac MRI to further assess for source of infection or endocarditis Even if had significant endocarditis, he would not be a good surgical candidate for valve replacement Further discussed with ID on 09/25-options are to continue to treat with IV antibiotics long-term but he would be at high risk for recurrence and palliative consultation is in order Do not place PICC line until bacteremia clears He was also on vancomycin and Zosyn which do not have his good activity against MSSA-now on cefazolin since 09/24 so hopefully this will help -Repeat blood cultures again on 09/25 -Continue IV Ancef ESR 55, CRP 11-trend ESR, CRP, CBC, CMP -Will check CT abdomen/pelvis to look for further source of infection (5) Leukocytosis: Plan: now resolved Continue treating bacteremia as above Follow CBC (6) Hypertension: Plan: Hold lisinopril while diuresing BPs controlled Lasix as above (7) Acute hyponatremia: Plan: Suspect secondary to acute heart failure. Improving with diuresis up to 133 -continue diuresis Monitor BMP (8) BPH (benign prostatic hyperplasia): Plan: Continue tamsulosin 0.4mg PO daily Goins in place-continue for now due to wounds on buttocks and inability to mobilize (9) Paroxysmal atrial fibrillation: Plan: Rate controlled Continue metoprolol succinate with hold parameters Continue amiodarone but decrease dose to 200 mg once daily as per cardiology recommendation If rate control becomes an issue, could increase dose of metoprolol Continue Eliquis for stroke prophylaxis He should have outpatient follow-up with cardiology after discharge Replace potassium to keep greater than or equal to 4.0-give 20 mg potassium chloride today (10) Rheumatoid arthritis: Plan: Continue prednisone-unclear what home dose is as he was discharged on 10 mg daily just 2 months ago Increased prednisone to 10 mg daily for now Follows with rheumatology as an outpatient Hold Enbrel while actively bacteremic (11) Anemia: Plan: Hemoglobin low but stable from previous at 8.6, borderline microcytic Fe transferrin sat low at 16% -continue po FeSO4, would not give IV iron while bacteremic Other cell lines normal (12) Hypokalemia: Plan: Replace with potassium chloride 20 mEq to goal K+>= 4.0 Follow BMP magnesium in the morning Secondary to IV Lasix (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 Not a good surgical candidate unless at tertiary care facility which patient has declined in the past (14) Paroxysmal ventricular tachycardia: Plan: On previous admission was having frequent runs of this, now improved with amiodarone Plan: VTE Prophylaxis - Eliquis Disposition -continued stay in PCU, eventual back to [facility] where he is a bed hold and his legal guardian is [facility] Reaffirmed with patient today that he wishes to be a full code Palliative care consultation placed given that he has recurrent bacteremia and likely has endocarditis which can not be treated surgically and is likely to recur again in the future. This may lead to continued decline. Needs goals of care discussion with either patient or his guardian Admission and Anticipated Discharge Date Admission Date: September 21, 2021 Subjective Patient felt short of breath earlier and was on oxygen, but has since been weaned off. Was given an extra dose of IV Lasix this morning. He continues to be confused at times. Blood cultures persistently positive again. Discussed his care with infectious disease. Review of Systems Review of Systems: All systems reviewed & are unremarkable except as noted in HPI & below Physical Exam Constitutional: WD/WN, vitals as above Eyes: + anicteric sclerae Neck: trachea midline, no thyromegaly Respiratory: normal respiratory effort, lungs clear to auscultation Cardiovascular: Rate/Rhythm: regular rate and + irregularly irregular Heart Sounds: no murmur Extremities: + edema (trace edema feet bilat) Chest (Breasts): Chest: normal inspection of chest Gastrointestinal (Abdomen): normal bowel sounds, soft, nontender, no hepatosplenomegaly Musculoskeletal: Extremities: + extremities abnormal to inspection (Flexion contractures in legs bilaterally), no cyanosis and no clubbing Skin: no rashes, warm and dry + lesion (Left heel with purplish discoloration), + wound (Multiple scabbed over abrasions over L knee,left hip large skin tear) and + ecchymosis (L 3-5th distal toes with purplish pressure sores,not open) Neurologic: moves all extremities and awake; no focal motor deficits Psychiatric: Orientation: alert, oriented to person, oriented to place and cooperative Lymphatic: no lymphedema Results & Data Results & Data ([facility]) Vital Signs (Past 12 Hours) Vital Signs Temp Pulse Pulse Resp BP BP Pulse Ox 09/25/21 11:39 37.0 C 78 27 H 115/67 98 09/25/21 09:00 76 09/25/21 07:37 36.6 C 92 H 21 136/80 Laboratory Results 09/25/21 09/25/21 Range/Units 05:40 05:35 Sodium 133 L (136-145) mmol/L Potassium 3.8 (3.5-5.1) mmol/L Chloride 101 (98-107) mmol/L Carbon Dioxide 24 (21-32) mmol/L Anion Gap 8.0 (3-11) BUN 28 H (7-18) mg/dl Creatinine 0.73 0.70 (0.6-1.4) mg/dl Est Cr Clr Drug Dosing 99.5 103.8 ml/min Est GFR ( Amer) 112.0 114.0 ml/min Est GFR (Non-Af Amer) 96.7 98.3 ml/min BUN/Creatinine Ratio 38.1 H (10-20) Glucose 81 (70-99) mg/dl Calcium 8.2 L (8.5-10.1) mg/dl PG Care Time/CCT Total # of Minutes Spent Total Time Spent with Patient: Total time spent is greater than 50% in coordination of care (as documented) at patient's floor/unit and/or counseling patient: Coding Level of Care Code 23476 Subseq Hosp Care Lvl 3 Diagnoses Metabolic encephalopathy G93.41 Acute respiratory failure with hypoxia J96.01 CHF (congestive heart failure) I50.9 Heart failure chronicity: unspecified Heart failure type: unspecified Bacteremia R78.81 Leukocytosis D72.829 Leukocytosis type: unspecified Hypertension I10 Hypertension type: essential hypertension Acute hyponatremia E87.1 BPH (benign prostatic hyperplasia) N40.0 Lower urinary tract symptom presence: symptoms absent Paroxysmal atrial fibrillation I48.0 Rheumatoid arthritis M06.9 Anemia D50.8 Anemia type: iron deficiency Iron deficiency anemia type: inadequate dietary iron intake Hypokalemia E87.6 Odontoid fracture S12.100A Paroxysmal ventricular tachycardia I47.2 (1) BPH (benign prostatic hyperplasia) Lower urinary tract symptom presence: symptoms absent Qualified Code(s): N 40.0 - Benign prostatic hyperplasia without lower urinary tract symptoms (2) CHF (congestive heart failure) Heart failure chronicity: unspecified Heart failure type: unspecified Qualified Code(s): I50.9 - Heart failure, unspecified (3) Anemia Anemia type: iron deficiency Iron deficiency anemia type: inadequate dietary iron intake Qualified Code(s): D50.8 - Other iron deficiency anemias (4) Leukocytosis Leukocytosis type: unspecified Qualified Code(s): D72.829 - Elevated white blood cell count, unspecified (5) Hypertension Hypertension type: essential hypertension Qualified Code(s): I10 - Essential (primary) hypertension
[2021-09-25] MEDS ORDERED: POTASSIUM CHLORIDE CRTAB 20 MEQ TABCR PO STA (15:46)
[2021-09-25] MEDS ORDERED: OPTIRAY 320 100ml IV ONE (16:11)
--- NOTE | 2021-09-25 16:24 | CT Scan Report ---
CT abd pelvis IV con only CLINICAL HISTORY: bacteremia,unknown source TECHNIQUE: Helical axial images of the abdomen and pelvis were obtained and displayed. Automated dose lowering techniques and/or adjustment according to patient size were utilized for this exam. This e xam was performed with intravenous contrast. COMPARISON: None available at the time of this dictation. FINDINGS: Lower chest: There are [id number] bilateral pleural effusions with associated atelectasis, si milar in appearance to prior exam. Redemonstration of cardiomegaly. Liver: Unremarkable. No focal lesions are seen. Gallbladder and biliary tree: Layering hyperdensity in the gallbladder likely represents vicarious ex cretion of contrast. No intra- or extrahepatic biliary ductal dilation. Pancreas: Unremarkable, no focal lesions. Spleen: Unremarkable. Adrenals: Unremarkable. Kidneys and ureters: Multiple simple cysts are partially visualized. Bladder: Davis catheter is seen. Reproductive organs: Unremarkable. Bowel: Liquid contents are noted throughout the colon. The appendix is surgically absent. There is a small hiatal hernia. No distended loops of small bowel are seen. Lymph nodes Retroperitoneal: Unremarkable. Mesenteric: Unremarkable. Pelvic: Enlarged lymph nodes are seen in the bilateral external iliac chains measuring up to 12 mm on the right and 8 mm on the left. Prominent inguinal lymph nodes are also noted bilaterally. Peritoneum: A small amount of free fluid is seen in the pelvis and peritoneum. Vessels: Atherosclerotic calcifications are seen. Abdominal wall: Diffuse anasarca seen. Bones: Severe degenerative changes are seen in the bilateral hips and lumbar spine. IMPRESSION: No acute abnormalities. There is free fluid in the pelvis and peritoneum and diffuse anasarca. Promin ent bilateral external iliac and inguinal lymph nodes. ACT 112: Negative or not required by law. Electronically signed by: Ethan Jeffery M.D. 09/25/2021 4:22 PM
[2021-09-25] MEDS: ACETAMINOPHEN 325 MG TAB PO PRN (20:39)
[2021-09-25] MEDS: ATORVASTATIN 40 MG TAB PO SCH (20:42)
[2021-09-26] MEDS: HYDROCODONE/ACETAMOPHEN 5/325MG TAB PO PRN ×3 (04:36→22:54)
[2021-09-26] MEDS: ceFAZolin 2000MG 2,000 MG/15 ML SYR IV SCH ×3 (04:36→20:22)
[2021-09-26 05:36] LABS: Basophils # (auto) 0.01 K/uL (0-0.2); Basophils % (auto) 0.1 %; Eosinophils # (auto) 0.27 K/uL (0-0.5); Eosinophils % (auto) 3.2 %; Hematocrit (blood only) 28.1 % (42-52); Hemoglobin 8.8 g/dL (14.0-18.0); Immature Granulocytes # (auto) 0.06 K/uL (0.00-0.02); Immature Granulocytes % (auto) 0.7 %; Lymphocytes # (auto) 0.96 K/uL (1.2-3.4); Lymphocytes % (auto) 11.4 %; Mean Corpuscular Hgb Conc 31.3 g/dL (32-36); Mean Corpuscular Volume 83.1 fL (80-100); Mean Platelet Volume 8.2 fL (7.4-10.4); Monocytes # (auto) 0.45 K/uL (0.11-0.59); Monocytes % (auto) 5.3 %; Neutrophils # (auto) 6.69 K/uL (1.4-6.5); Neutrophils % (auto) 79.3 %; Platelet Count 404 K/uL (130-400); RDW Coefficient of Variation 17.6 % (11.5-14.5); RDW Standard Deviation 53.5 fL (36.4-46.3); Red Blood Count 3.38 M/uL (4.7-6.1); White Blood Count 8.44 K/uL (4.8-10.8)
[2021-09-26 06:12] LABS: Albumin Level 1.4 gm/dl (3.4-5.0); BUN Creatinine Ratio 32.1 (10-20); Calcium 8.2 mg/dl (8.5-10.1); Creatinine Clr Calc Pharmacy 98.2 ml/min; Est GFR (African American) 111.4 ml/min; Est GFR (Non-African American) 96.1 ml/min; Magnesium 2.1 mg/dl (1.8-2.4); Potassium 2.9 mmol/L (3.5-5.1)
[2021-09-26 06:18] LABS: Albumin Globulin Ratio 0.4 (0.9-2); Bilirubin,Total 0.3 mg/dl (0.2-1); C Reactive Protein 8.3 mg/dl (0-0.29); Globulin 3.6 gm/dl (2.5-4.0)
[2021-09-26] MEDS: POTASSIUM CHLORIDE CRTAB 20 MEQ TABCR PO SCH ×4 (08:12→20:24)
[2021-09-26] MEDS: METOPROLOL SUCC 50MG EXT REL TAB PO SCH (08:13)
[2021-09-26] MEDS: FERROUS SULFATE 325 MG TAB PO SCH (08:13)
[2021-09-26] MEDS: DOCUSATE SODIUM 100 MG CAP PO SCH ×2 (08:13→16:59)
[2021-09-26] MEDS: TAMSULOSIN HCL 0.4 MG CAP PO SCH (08:13)
[2021-09-26] MEDS: BACLOFEN 10 MG TAB PO SCH ×3 (08:14→20:24)
[2021-09-26] MEDS: AMIODARONE 200 MG TAB PO SCH (08:14)
[2021-09-26] MEDS: APIXABAN 5 MG TABLET PO SCH ×2 (08:14→20:23)
[2021-09-26] MEDS: POLYETHYLENE (MIRALAX) 17 GM PACK PO SCH (08:15)
[2021-09-26] MEDS: predniSONE 10 MG TABLET PO SCH (08:15)
[2021-09-26] MEDS: PANTOprazole 40 MG TAB PO SCH (08:15)
[2021-09-26] MEDS: DICLOFENAC SOD 1% GEL 100 GM TUBE EXT SCH ×4 (08:15→20:25)
[2021-09-26] MEDS: rOPINIRole HCL 1 MG TABLET PO SCH ×2 (08:44→20:23)
--- NOTE | 2021-09-26 10:27 | Cardiology Progress Note ---
Date of Service September 26, 2021 Assessment & Plan (1) MSSA bacteremia: Plan: Consider chronic suppressive antibiotics if sophisticated studies (cardiac MRI, etc.) cannot be obtained. Check with ID for antibiotic selection/duration recommendations. (2) Odontoid fracture with nonunion: Plan: Contraindication to transesophageal echocardiogram. (3) Persistent atrial fibrillation: Plan: Ventricular rate well controlled. Agree with change to 200 mg daily amiodarone, if rate remains reasonable overnight could further taper to 200 mg every other day. Eventually, would like to replace amiodarone with metoprolol, but this could be achieved as an outpatient as well. (4) Heart failure with mid-range ejection fraction: Plan: He appears only minimally hypervolemic and is comfortable lying down off oxygen. Chest x-ray does not show any significant pulmonary congestion. As noted, ideally his outpatient regimen would be weight-based but patient's debilitation may prevent this. Upon discharge, would recommend furosemide 40 mg every other day (based on symptomatic response, he could adjust this regimen without the need for daily weights). Replete potassium. (5) Acute respiratory failure with hypoxia: Plan: As noted, etiology for this is uncertain. (6) Debilitated: Admission and Anticipated Discharge Date Admission Date: September 21, 2021 Subjective Patient more alert today. Denies any chest pain or dyspnea. Not requiring supplemental oxygen. No change in his chronic arthralgias. I/O -3301, Weight pending. Chest x-ray showed bilateral lower lung opacities, no significant pulmonary congestion. Telemetry showed atrial fibrillation with well-controlled ventricular rate (80- 90 bpm). Physical Exam Physical Exam: Somnolent but readily arousable and able to converse. Normotensive. Pulse in the 80 bpm range and irregular. Skin: Buttocks ulceration with erythema (see photo image) HEENT: unremarkable. Neck: Jugular venous pulse one third of the way up to the angle of the jaw at 45 degrees. No carotid bruits. Lungs: Moderately decreased breath sounds but generally clear. No accessory muscle use. Cardiac: Faint heart tones with irregular rhythm, no obvious murmur. Abdomen: benign. Extremities: no edema, pulses intact. Neurologic: Answers questions appropriately, grossly nonfocal. Results & Data ([facility]) Vital Signs (Past 12 Hours) Vital Signs Temp Pulse Pulse Pulse Resp BP Pulse Ox 09/26/21 03:00 87 19 111/62 98 11/18/21 00:01 75 09/25/21 23:58 76 23 96 09/25/21 23:00 99.1 F 70 22 91/54 L 99 Laboratory Results Normal WBC. Sodium stable 133, potassium 2.9. Urine 24, creatinine 0.74. Diagnostic Findings Chest x-ray as noted in in HPI PG Care Time/CCT Total # of Minutes Spent Total Time Spent with Patient: Total time spent is greater than 50% in coordination of care (as documented) at patient's floor/unit and/or counseling patient: Coding Level of Care Code 25500 Subseq Hosp Care Lvl 3 Diagnoses MSSA bacteremia R78.81; B95.61 Odontoid fracture with nonunion S12.110K Persistent atrial fibrillation I48.19 Heart failure with mid-range ejection fraction I50.9 Acute respiratory failure with hypoxia J96.01 Debilitated R53.81
--- NOTE | 2021-09-26 11:10 | Hospitalist Progress Note ---
Date of Service September 26, 2021 Assessment & Plan (1) Metabolic encephalopathy: Plan: Secondary to hypoxia from CHF but also possibly due to bacteremia as below in the setting of baseline cognitive impairment Improved compared to admission, but confabulates at times Continue treating Bacteremia with antibiotics Continue to treat CHF with diuresis-hypoxia did return briefly on 09/25 but now improved, on room air (documentation of vitals is incorrect stating he is on Oxymask and he is not) (2) Acute respiratory failure with hypoxia: Plan: Probably multifactorial A combination of CHF exacerbation, pleural effusion Patient initially on BIPAP, now weaned off to room air Chest x-ray 09/25 again with opacities bilateral atelectasis versus aspiration versus pulmonary edema Dose IV Lasix daily as needed versus back on Lasix 40 mg every other day as per cardiology recommendation-will order po today Continue BiPAP at nighttime and with naps (3) CHF (congestive heart failure): Plan: With acute on chronic diastolic CHF Most recent echocardiogram here with EF 40-45%, resolution of pericardial effusion, mildly dilated RV proBNP elevated at 32,000 on admission and now down to 19,000 Was hypoxic requiring BiPAP and now on room air after diuresis with IV lasix Lasix dosing as above Replace potassium as needed-give 40meq po tid today Follow BMP and magnesium Hyponatremia now improved with diuresis Daily weights, I's and O's, low-sodium diet (4) Bacteremia: Plan: Growing MSSA in initial blood cultures from 09/21, 09/23, and again with GPC on cultures from 09/24 He has a history of this previously back in 05/2021 which was treated with 6 week s of IV Ancef He is not able to have a ALE due to 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 ID consult appreciated-we do not have ability to perform PET scan, WBC tagged scan, or cardiac MRI to further assess for source of infection or endocarditis Even if had significant endocarditis, he would not be a good surgical candidate for valve replacement Further discussed with ID on 09/25-options are to continue to treat with IV antibiotics long-term but he would be at high risk for recurrence and palliative consultation is in order Do not place PICC line until bacteremia clears He was also on vancomycin and Zosyn which do not have his good activity against MSSA-now on cefazolin since 09/24 so hopefully this will help -Repeat blood cultures again on 09/25 are NGTD -Continue IV Ancef ESR 55, CRP 11-trend ESR, CRP, CBC, CMP (5) Leukocytosis: Plan: now resolved Continue treating bacteremia as above Follow CBC (6) Hypertension: Plan: Hold lisinopril while diuresing BPs controlled Lasix as above (7) Acute hyponatremia: Plan: Suspect secondary to acute heart failure. Improving with diuresis up to 133 -continue diuresis Monitor BMP (8) BPH (benign prostatic hyperplasia): Plan: Continue tamsulosin 0.4mg PO daily Goins in place-continue for now due to wounds on buttocks and inability to mobilize (9) Paroxysmal atrial fibrillation: Plan: Rate controlled Continue metoprolol succinate with hold parameters Continue amiodarone but decrease dose to 200 mg once daily as per cardiology recommendation If rate control becomes an issue, could increase dose of metoprolol Continue Eliquis for stroke prophylaxis He should have outpatient follow-up with cardiology after discharge Replace potassium to keep greater than or equal to 4.0-give 20 mg potassium chloride today (10) Rheumatoid arthritis: Plan: Continue prednisone-unclear what home dose is as he was discharged on 10 mg daily just 2 months ago Increased prednisone to 10 mg daily for now Follows with rheumatology as an outpatient Hold Enbrel while actively bacteremic (11) Anemia: Plan: Hemoglobin low but stable from previous at 8.6, borderline microcytic Fe transferrin sat low at 16% -continue po FeSO4, would not give IV iron while bacteremic Other cell lines normal (12) Hypokalemia: Plan: Replace with potassium chloride to goal K+>= 4.0 Follow BMP magnesium in the morning Secondary to Lasix (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 where he is a bed hold and his legal guardian is [facility] Reaffirmed with patient that he wishes to be a full code Palliative care consultation placed given that he has recurrent bacteremia and likely has endocarditis which can not be treated surgically and is likely to recur again in the future. This may lead to continued decline. Needs goals of care discussion with either patient or his guardian Admission and Anticipated Discharge Date Admission Date: September 21, 2021 Subjective Pt drowsy after taking pain pill today. Has no complaints. Afebrile on room air despite being documented to be on Oxymask Tele with Afib, rates controlled Review of Systems Review of Systems: All systems reviewed & are unremarkable except as noted in HPI & below Physical Exam Constitutional: WD/WN, vitals as above Eyes: + anicteric sclerae Neck: trachea midline, no thyromegaly Respiratory: normal respiratory effort Auscultation: + diminished lung sounds (at bases) Cardiovascular: Rate/Rhythm: regular rate and + irregularly irregular Heart Sounds: no murmur Extremities: + edema (trace edema feet bilat) Chest (Breasts): Chest: normal inspection of chest Gastrointestinal (Abdomen): normal bowel sounds, soft, nontender, no hepatosplenomegaly Musculoskeletal: Extremities: + extremities abnormal to inspection (Flexion contractures in legs bilaterally), no cyanosis and no clubbing Skin: no rashes, warm and dry + lesion (Left heel with purplish discoloration), + wound (Multiple scabbed over abrasions over L knee,left hip large skin tear) and + ecchymosis (L 3-5th distal toes with purplish pressure sores,not open) Neurologic: moves all extremities and awake; no focal motor deficits Psychiatric: Orientation: alert, oriented to person, oriented to place and cooperative Lymphatic: no lymphedema Results & Data Results & Data ([facility]) Vital Signs (Past 12 Hours) Vital Signs Pulse Pulse Resp BP Pulse Ox 09/26/21 03:00 87 19 111/62 98 09/26/21 00:01 75 09/25/21 23:58 76 23 96 PG Care Time/CCT Total # of Minutes Spent Total Time Spent with Patient: Total time spent is greater than 50% in coordination of care (as documented) at patient's floor/unit and/or counseling patient: Coding Level of Care Code 34286 Subseq Hosp Care Lvl 3 Diagnoses Metabolic encephalopathy G93.41 Acute respiratory failure with hypoxia J96.01 CHF (congestive heart failure) I50.9 Heart failure chronicity: unspecified Heart failure type: unspecified Bacteremia R78.81 Leukocytosis D72.829 Leukocytosis type: unspecified Hypertension I10 Hypertension type: essential hypertension Acute hyponatremia E87.1 BPH (benign prostatic hyperplasia) N40.0 Lower urinary tract symptom presence: symptoms absent Paroxysmal atrial fibrillation I48.0 Rheumatoid arthritis M06.9 Anemia D50.8 Anemia type: iron deficiency Iron deficiency anemia type: inadequate dietary iron intake Hypokalemia E87.6 Odontoid fracture S12.100A Paroxysmal ventricular tachycardia I47.2 (1) CHF (congestive heart failure) Heart failure chronicity: unspecified Heart failure type: unspecified Qualified Code(s): I50.9 - Heart failure, unspecified (2) Leukocytosis Leukocytosis type: unspecified Qualified Code(s): D72.829 - Elevated white blood cell count, unspecified (3) Hypertension Hypertension type: essential hypertension Qualified Code(s): I10 - Essential (primary) hypertension (4) BPH (benign prostatic hyperplasia) Lower urinary tract symptom presence: symptoms absent Qualified Code(s): N40.0 - Benign prostatic hyperplasia without lower urinary tract symptoms (5) Anemia Anemia type: iron deficiency Iron deficiency anemia type: inadequate dietary iron intake Qualified Code(s): D50.8 - Other iron deficiency anemias
[2021-09-26] MEDS: ACETAMINOPHEN 325 MG TAB PO PRN (20:21)
[2021-09-26] MEDS: ATORVASTATIN 40 MG TAB PO SCH (20:23)
[2021-09-27] MEDS: ceFAZolin 2000MG 2,000 MG/15 ML SYR IV SCH ×3 (05:38→20:55)
[2021-09-27] MEDS: HYDROCODONE/ACETAMOPHEN 5/325MG TAB PO PRN ×3 (05:38→20:48)
[2021-09-27 05:41] LABS: Basophils # (auto) 0.01 K/uL (0-0.2); Basophils % (auto) 0.1 %; Eosinophils # (auto) 0.29 K/uL (0-0.5); Eosinophils % (auto) 3.8 %; Hematocrit (blood only) 30.8 % (42-52); Hemoglobin 9.6 g/dL (14.0-18.0); Immature Granulocytes # (auto) 0.05 K/uL (0.00-0.02); Immature Granulocytes % (auto) 0.7 %; Lymphocytes # (auto) 1.25 K/uL (1.2-3.4); Lymphocytes % (auto) 16.4 %; Mean Corpuscular Hemoglobin 26.2 pg (25-34); Mean Corpuscular Hgb Conc 31.2 g/dL (32-36); Mean Corpuscular Volume 83.9 fL (80-100); Mean Platelet Volume 8.5 fL (7.4-10.4); Monocytes # (auto) 0.55 K/uL (0.11-0.59); Monocytes % (auto) 7.2 %; Neutrophils # (auto) 5.45 K/uL (1.4-6.5); Neutrophils % (auto) 71.8 %; Platelet Count 462 K/uL (130-400); RDW Coefficient of Variation 17.8 % (11.5-14.5); RDW Standard Deviation 54.5 fL (36.4-46.3); Red Blood Count 3.67 M/uL (4.7-6.1)
[2021-09-27 06:18] LABS: Albumin Globulin Ratio 0.4 (0.9-2); Albumin Level 1.5 gm/dl (3.4-5.0); BUN Creatinine Ratio 36.2 (10-20); Bilirubin,Total 0.3 mg/dl (0.2-1); C Reactive Protein 6.86 mg/dl (0-0.29); Calcium 8.2 mg/dl (8.5-10.1); Creatinine Clr Calc Pharmacy 132.1 ml/min; Est GFR (African American) 125.9 ml/min; Est GFR (Non-African American) 108.6 ml/min; Globulin 3.9 gm/dl (2.5-4.0); Magnesium 2.2 mg/dl (1.8-2.4); Potassium 4.9 mmol/L (3.5-5.1); Total Protein 5.4 gm/dl (6.4-8.2)
[2021-09-27] MEDS: TAMSULOSIN HCL 0.4 MG CAP PO SCH (09:09)
[2021-09-27] MEDS: PANTOprazole 40 MG TAB PO SCH (09:10)
[2021-09-27] MEDS: AMIODARONE 200 MG TAB PO SCH (09:10)
[2021-09-27] MEDS: DOCUSATE SODIUM 100 MG CAP PO SCH ×2 (09:10→16:04)
[2021-09-27] MEDS: FERROUS SULFATE 325 MG TAB PO SCH (09:10)
[2021-09-27] MEDS: rOPINIRole HCL 1 MG TABLET PO SCH ×2 (09:10→20:50)
[2021-09-27] MEDS: APIXABAN 5 MG TABLET PO SCH ×2 (09:10→20:50)
[2021-09-27] MEDS: predniSONE 10 MG TABLET PO SCH (09:10)
[2021-09-27] MEDS: FUROSEMIDE 40 MG TAB PO SCH (09:11)
[2021-09-27] MEDS: BACLOFEN 10 MG TAB PO SCH ×3 (09:11→20:53)
[2021-09-27] MEDS: METOPROLOL SUCC 50MG EXT REL TAB PO SCH (09:12)
[2021-09-27] MEDS: DICLOFENAC SOD 1% GEL 100 GM TUBE EXT SCH ×4 (09:13→20:52)
[2021-09-27] MEDS: POLYETHYLENE (MIRALAX) 17 GM PACK PO SCH (09:13)
--- NOTE | 2021-09-27 10:06 | Palliative Care Consultation ---
Date of Consultation September 27, 2021 History of Present Illness Reason for Consultation: goals of care Requesting Physician: Dr. Collins Attending Physician: Lesley Collins MD Allergies Allergy/AdvReac Type Severity Reaction Status Date / Time gluten AdvReac Verified 07/14/21 17:25 Home Medications Medication Instructions Recorded Confirmed Type betamethasone dipropionate 0.05 % 1 applic TOPICAL BID PRN 05/11/21 09/21/21 History lotion atorvastatin 40 mg tablet 40 mg PO HS #0 tab 05/17/21 09/21/21 Rx etanercept 50 mg/mL (1 mL) 50 mg SUBCUT WK #12 ml 05/22/21 09/21/21 Rx subcutaneous syringe (Enbrel) acetaminophen 325 mg tablet 650 mg PO Q4H PRN MDD 3 /06/05/21 09/21/21 History (Tylenol) HOURS docusate sodium 100 mg capsule 100 mg PO BIDM 06/05/21 09/21/21 History magnesium hydroxide 400 mg/5 mL 30 ml PO DAILY PRN 06/05/21 09/21/21 History oral suspension (Milk of Sinimanes) omega-3 fatty acids 1,000 mg 1,000 mg PO BIDM 06/05/21 09/21/21 History capsule (Fish Oil Concentrate) ropinirole 2 mg tablet 2 mg PO Q12H 06/05/21 09/21/21 History multivitamin 1 tab PO DAILY 06/20/21 09/21/21 History apixaban 5 mg tablet (Eliquis) 5 mg PO BID 06/21/21 09/21/21 History albuterol sulfate 2.5 mg INHALATION Q6H PRN #0 ml 07/30/21 09/21/21 Rx amiodarone 200 mg tablet 200 mg PO BIDM #60 tab 07/30/21 09/21/21 Rx amlodipine 5 mg tablet (Norvasc) 5 mg PO QAM #30 tab 07/30/21 09/21/21 Rx baclofen 10 mg tablet 5 mg PO TID #90 tab 07/30/21 09/21/21 Rx diclofenac sodium 1 % topical gel 4 g EXT QID #1 tube 07/30/21 09/21/21 Rx (Voltaren Arthritis Pain) ferrous sulfate 325 mg (65 mg 325 mg PO DAILY #0 tab 07/30/21 09/21/21 Rx iron) tablet furosemide 20 mg tablet (Lasix) 20 mg PO DAILY PRN #30 tab 07/30/21 09/21/21 Rx hydrocodone 5 mg-acetaminophen 325 1 tab PO Q6H PRN #30 tab 07/30/21 09/21/21 Rx mg tablet lisinopril 5 mg tablet (Zestril) 10 mg PO QAM #0 tab 07/30/21 09/21/21 Rx metoprolol succinate 200 mg 200 mg PO DAILY #30 tab 07/30/21 09/21/21 Rx tablet,extended release 24 hr omeprazole 20 mg capsule,delayed 20 mg PO DAILY #30 cap 07/30/21 09/21/21 Rx release polyethylene glycol 3350 17 gram 17 g PO DAILY #30 ea 07/30/21 09/21/21 Rx oral powder packet (Miralax) potassium chloride 10 mEq 10 meq PO DAILY PRN #30 tab 07/30/21 09/21/21 Rx tablet,extended release prednisone 10 mg tablet 10 mg PO DIRECTED #20 tab 07/30/21 09/21/21 Rx tamsulosin 0.4 mg capsule (Flomax) 0.4 mg PO DAILY #30 cap 07/30/21 09/21/21 Rx Patient History Medical History Acute respiratory failure with hypoxemia Acute respiratory failure with hypoxia Atrial flutter (2019) Chronic neck pain History of cardioversion Homeless single person Hx of fracture of leg left - not current Joint contracture of right lower leg Paroxysmal ventricular tachycardia Pneumonia Rheumatoid arthritis Thoracic vertebral fracture Surgical History History of tooth extraction Family History Father Family history of diabetes mellitus Denies family history of Ovarian cancer Prostate cancer Myocardial infarction Breast cancer Colorectal cancer Social History Smoking Status: Unknown if ever smoked Tobacco Type: Cigarettes Age Started Using Tobacco: 16; Age Quit Using Tobacco: 50; packs per day: 1; Years Smoked: 34; Cigarettes Per Day: 20; Number of Years Since Quit: 15; Second Hand Exposure: No; Hx Alcohol Use: No Hx Substance Use: No Preferred Language: Northern Irish Communication Ability: Effective Visual Impairment: No Limitations Hearing Ability: Normal Vert[employer] Architect Required: No Beliefs That Will Affect Care: None marital status: Single Current Living Situation: Shelter current occupational status: unemployed How many Children do You have: 3 Feels Safe at Home: Yes Childhood Exposure to Second-Hand Smoke: Yes during the past year weight has: increased > 10 lbs Dental Care, Regularly: Yes Physical Activity Frequency: Does not Exercise Seatbelt Use: always Sunscreen Use: No Assistive Devices: CPAP and Oxygen - at Night Results & Data ([facility]) Vital Signs (Past 12 Hours) Vital Signs Temp Pulse Pulse Resp BP Pulse Ox 09/27/21 04:55 36.8 C 87 18 117/81 96 09/26/21 23:16 72 09/26/21 23:07 36.9 C 69 18 115/63 97 PG Care Time/CCT Total # of Minutes Spent Total Time Spent with Patient: Total time spent is greater than 50% in coordination of care (as documented) at patient's floor/unit and/or counseling patient: Coding
--- NOTE | 2021-09-27 10:52 | Hospitalist Progress Note ---
Date of Service September 27, 2021 Assessment & Plan (1) Metabolic encephalopathy: Plan: Secondary to hypoxia from CHF but also possibly due to bacteremia as below in the setting of baseline cognitive impairment Improved compared to admission, but confabulates at times Continue treating Bacteremia with antibiotics Continue to treat CHF with diuresis-hypoxia did return briefly on 09/25 but now improved, on room air (documentation of vitals is incorrect stating he is on Oxymask and he is not) (2) Acute respiratory failure with hypoxia: Plan: Probably multifactorial A combination of CHF exacerbation, pleural effusion Patient initially on BIPAP, now weaned off to room air except when sleeping Chest x-ray 09/25 again with opacities bilateral atelectasis versus aspiration versus pulmonary edema continue Lasix 40 mg po every other day as per cardiology recommendation Continue BiPAP at nighttime and with naps (3) Sepsis: Plan: Sepsis, POA now resolved (4) CHF (congestive heart failure): Plan: With acute on chronic diastolic CHF Most recent echocardiogram here with EF 40-45%, resolution of pericardial effusion, mildly dilated RV proBNP elevated at 32,000 on admission and now down to 19,000 Was hypoxic requiring BiPAP and now on room air after diuresis with IV lasix Lasix dosing as above Replace potassium as needed-none needed today Follow BMP and magnesium Hyponatremia now improved with diuresis Daily weights, I's and O's, low-sodium diet (5) Bacteremia: Plan: Growing MSSA in initial blood cultures from 09/21, 09/23, and again with GPC on cultures from 09/24 He has a history of this previously back in 05/2021 which was treated with 6 weeks of IV Ancef He is not able to have a ALE due to 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 ID consult appreciated-we do not have ability to perform PET scan, WBC tagged scan, or cardiac MRI to further assess for source of infection or endocarditis Even if had significant endocarditis, he would not be a good surgical candidate for valve replacement Further discussed with ID on 09/25-options are to continue to treat with IV antibiotics long-term but he would be at high risk for recurrence and palliative consultation is in order Do not place PICC line until bacteremia clears He was also on vancomycin and Zosyn which do not have his good activity against MSSA-now on cefazolin since 09/24 so hopefully this will help -Repeat blood cultures again on 09/25 are remaining NGTD fortunately -Continue IV Ancef ESR 55 and now down to 42, CRP 11-trend ESR, CRP, CBC, CMP (6) Leukocytosis: Plan: now resolved Continue treating bacteremia as above Follow CBC (7) Hypertension: Plan: Hold lisinopril while diuresing BPs controlled Lasix as above (8) Acute hyponatremia: Plan: Suspect secondary to acute heart failure. Improving with diuresis up to 133 -continue diuresis Monitor BMP (9) BPH (benign prostatic hyperplasia): Plan: Continue tamsulosin 0.4mg PO daily Goins in place-continue for now due to wounds on buttocks and inability to mobilize (10) Paroxysmal atrial fibrillation: Plan: Rate controlled Continue metoprolol succinate with hold parameters Continue amiodarone but decrease dose to 200 mg once daily as per cardiology recommendation Of note, amiodarone was actually started for VT If rate control becomes an issue, could increase dose of metoprolol Continue Eliquis for stroke prophylaxis He should have outpatient follow-up with cardiology after discharge Replace potassium to keep greater than or equal to 4.0 (11) Rheumatoid arthritis: Plan: Continue prednisone-unclear what home dose is as he was discharged on 10 mg daily just 2 months ago Increased prednisone to 10 mg daily for now Follows with rheumatology as an outpatient Hold Enbrel while actively bacteremic (12) Anemia: Plan: Hemoglobin low but stable from previous at 8.6, borderline microcytic Fe transferrin sat low at 16% -continue po FeSO4, would not give IV iron while bacteremic Other cell lines normal (13) Hypokalemia: Plan: Replaced and now resolved Follow BMP magnesium in the morning Secondary to Lasix (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 Not a good surgical candidate unless at tertiary care facility which patient has declined in the past (15) Paroxysmal ventricular tachycardia: Plan: On previous admission was having frequent runs of this, now improved with amiodarone (16) Pressure ulcer: Plan: pressure ulcer of left lateral hip, extending over left buttock, stage II, POA Pressure-induced deep tissue injury to R foot over 1st and 5th metatarsal head, R third/fourth/fifth toes, and medial sacrum, POA wound care, offload pressure Plan: VTE Prophylaxis - Eliquis Disposition -continued stay in PCU, eventual back to [facility] where he is a bed hold and his legal guardian is [facility] Reaffirmed with patient that he wishes to be a full code Palliative care consultation placed given that he has recurrent bacteremia and likely has endocarditis which can not be treated surgically and is likely to recur again in the future. This may lead to continued decline. Needs goals of care discussion with either patient or his guardian Admission and Anticipated Discharge Date Admission Date: September 21, 2021 Subjective Pt drowsy but wakes up and says he is tired of being here. No SOB. Review of Systems Review of Systems: All systems reviewed & are unremarkable except as noted in HPI & below Physical Exam Constitutional: WD/WN, vitals as above Eyes: + anicteric sclerae Neck: trachea midline, no thyromegaly Respiratory: normal respiratory effort Auscultation: + diminished lung sounds (at bases) Cardiovascular: Rate/Rhythm: regular rate and + irregularly irregular Heart Sounds: no murmur Extremities: + edema (trace edema feet bilat) Chest (Breasts): Chest: normal inspection of chest Gastrointestinal (Abdomen): normal bowel sounds, soft, nontender, no hepatosplenomegaly Musculoskeletal: Extremities: + extremities abnormal to inspection (Flexion contractures in legs bilaterally), no cyanosis and no clubbing Skin: no rashes, warm and dry + lesion (Left heel with purplish discoloration), + wound (Multiple scabbed over abrasions over L knee,left hip large skin tear) and + ecchymosis (L 3-5th distal toes with purplish pressure sores,not open) Neurologic: moves all extremities and awake; no focal motor deficits Psychiatric: Orientation: alert, oriented to person, oriented to place and cooperative Lymphatic: no lymphedema Results & Data Results & Data ([facility]) Vital Signs (Past 12 Hours) Vital Signs Temp Pulse Pulse Resp BP Pulse Ox 09/27/21 04:55 36.8 C 87 18 117/81 96 09/26/21 23:16 72 09/26/21 23:07 36.9 C 69 18 115/63 97 Laboratory Results 09/27/21 05:03 09/27/21 05:03 PG Care Time/CCT Total # of Minutes Spent Total Time Spent with Patient: Total time spent is greater than 50% in coordination of care (as documented) at patient's floor/unit and/or counseling patient: Coding Level of Care Code 87217 Subseq Hosp Care Lvl 2 Diagnoses Metabolic encephalopathy G93.41 Acute respiratory failure with hypoxia J96.01 CHF (congestive heart failure) I50.9 Heart failure chronicity: unspecified Heart failure type: unspecified Bacteremia R78.81 Leukocytosis D72.829 Leukocytosis type: unspecified Hypertension I10 Hypertension type: essential hypertension Acute hyponatremia E87.1 BPH (benign prostatic hyperplasia) N40.0 Lower urinary tract symptom presence: symptoms absent Paroxysmal atrial fibrillation I48.0 Rheumatoid arthritis M06.9 Anemia D50.8 Anemia type: iron deficiency Iron deficiency anemia type: inadequate dietary iron intake Hypokalemia E87.6 Odontoid fracture S12.100A Paroxysmal ventricular tachycardia I47.2 Sepsis A41.9 Pressure ulcer L89.90 (1) CHF (congestive heart failure) Heart failure chronicity: unspecified Heart failure type: unspecified Qualified Code(s): I50.9 - Heart failure, unspecified (2) Leukocytosis Leukocytosis type: unspecified Qualified Code(s): D72.829 - Elevated white blood cell count, unspecified (3) Hypertension Hypertension type: essential hypertension Qualified Code(s): I10 - Essential (primary) hypertension (4) BPH (benign prostatic hyperplasia) Lower urinary tract symptom presence: symptoms absent Qualified Code(s): N40.0 - Benign prostatic hyperplasia without lower urinary tract symptoms (5) Anemia Anemia type: iron deficiency Iron deficiency anemia type: inadequate dietary iron intake Qualified Code(s): D50.8 - Other iron deficiency anemias
[2021-09-27] MEDS: ATORVASTATIN 40 MG TAB PO SCH (20:53)
[2021-09-28] MEDS: HYDROCODONE/ACETAMOPHEN 5/325MG TAB PO PRN ×4 (03:01→19:26)
[2021-09-28] MEDS: ceFAZolin 2000MG 2,000 MG/15 ML SYR IV SCH ×3 (04:17→19:57)
[2021-09-28 06:43] LABS: BUN Creatinine Ratio 32.6 (10-20); Calcium 7.9 mg/dl (8.5-10.1); Creatinine Clr Calc Pharmacy 119.1 ml/min; Est GFR (African American) 120.6 ml/min; Est GFR (Non-African American) 104.1 ml/min; Magnesium 2.1 mg/dl (1.8-2.4)
[2021-09-28] MEDS: TAMSULOSIN HCL 0.4 MG CAP PO SCH (08:56)
[2021-09-28] MEDS: rOPINIRole HCL 1 MG TABLET PO SCH ×2 (08:57→19:56)
[2021-09-28] MEDS: DICLOFENAC SOD 1% GEL 100 GM TUBE EXT SCH ×4 (08:57→19:57)
[2021-09-28] MEDS: predniSONE 10 MG TABLET PO SCH (08:57)
[2021-09-28] MEDS: METOPROLOL SUCC 50MG EXT REL TAB PO SCH (08:57)
[2021-09-28] MEDS: APIXABAN 5 MG TABLET PO SCH ×2 (08:57→19:57)
[2021-09-28] MEDS: DOCUSATE SODIUM 100 MG CAP PO SCH ×2 (08:57→16:54)
[2021-09-28] MEDS: FERROUS SULFATE 325 MG TAB PO SCH (08:57)
[2021-09-28] MEDS: AMIODARONE 200 MG TAB PO SCH (08:57)
[2021-09-28] MEDS: POLYETHYLENE (MIRALAX) 17 GM PACK PO SCH (08:58)
[2021-09-28] MEDS: BACLOFEN 10 MG TAB PO SCH ×3 (10:11→19:56)
[2021-09-28] MEDS: PANTOprazole 40 MG TAB PO SCH (10:11)
[2021-09-28] MEDS ORDERED: HYDROCORTISONE 1% CRM 30 GM TUBE EXT PRN (10:40)
--- NOTE | 2021-09-28 11:09 | Hospitalist Progress Note ---
Date of Service September 28, 2021 Assessment & Plan (1) Metabolic encephalopathy: Plan: Secondary to hypoxia from CHF but also possibly due to bacteremia as below in the setting of baseline cognitive impairment Improved compared to admission, but confabulates at times Continue treating Bacteremia with antibiotics Continue to treat CHF with diuresis (2) Acute respiratory failure with hypoxia: Plan: Probably multifactorial A combination of CHF exacerbation, pleural effusion Patient initially on BIPAP, now weaned off to room air except when sleeping, except he really likes O2 for comfort even when has normal POx Chest x-ray 09/25 again with opacities bilateral atelectasis versus aspiration versus pulmonary edema continue Lasix 40 mg po every other day as per cardiology recommendation Continue BiPAP at nighttime and with naps if tolerated (3) Sepsis: Plan: Sepsis, POA now resolved (4) CHF (congestive heart failure): Plan: With acute on chronic diastolic CHF Most recent echocardiogram here with EF 40-45%, resolution of pericardial effusion, mildly dilated RV proBNP elevated at 32,000 on admission and now down to 19,000 Was hypoxic requiring BiPAP and now on room air after diuresis with IV lasix Lasix dosing as above Replace potassium as needed-none needed today Follow BMP and magnesium Hyponatremia now improved with diuresis Daily weights, I's and O's, low-sodium diet graciela Davis 09/28 (5) Bacteremia: Plan: Growing MSSA in initial blood cultures from 09/21, 09/23, and again with [facility] on cultures from 09/24 He has a history of this previously back in 05/2021 which was treated with 6 weeks of IV Ancef He is not able to have a ALE due to 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 ID consult appreciated-we do not have ability to perform PET scan, WBC tagged scan, or cardiac MRI to further assess for source of infection or endocarditis Even if had significant endocarditis, he would not be a good surgical candidate for valve replacement Further discussed with ID on 09/25-options are to continue to treat with IV antibiotics long-term but he would be at high risk for recurrence and palliative consultation is in order Do not place PICC line until bacteremia clears He was also on vancomycin and Zosyn which do not have his good activity against MSSA-now on cefazolin since 09/24 so hopefully this will help -Repeat blood cultures again on 09/25 are remaining NGTD, fortunately -Continue IV Ancef ESR 55 and now down to 42, CRP 11-trend ESR, CRP, CBC, CMP Plan to place PICC line Thursday if BCxs continue to remain no growth (6) Leukocytosis: Plan: now resolved Continue treating bacteremia as above Follow CBC (7) Hypertension: Plan: Hold lisinopril while diuresing amlodipine also on hold and may not need this moving forward BPs controlled Lasix as above (8) Acute hyponatremia: Plan: Suspect secondary to acute heart failure. Improving with diuresis up to 133 -continue diuresis Monitor BMP (9) BPH (benign prostatic hyperplasia): Plan: Continue tamsulosin 0.4mg PO daily dc Davis and trial of void (10) Paroxysmal atrial fibrillation: Plan: Rate controlled Continue metoprolol succinate with hold parameters Continue amiodarone but decrease dose to 200 mg once daily as per cardiology recommendation Of note, amiodarone was actually started for VT If rate control becomes an issue, could increase dose of metoprolol Continue Eliquis for stroke prophylaxis He should have outpatient follow-up with cardiology after discharge Replace potassium to keep greater than or equal to 4.0 no significant VT this admission-->ok to transfer off tele (11) Rheumatoid arthritis: Plan: Continue prednisone-unclear what home dose is as he was discharged on 10 mg daily just 2 months ago Increased prednisone to 10 mg daily for now Follows with rheumatology as an outpatient Hold Enbrel while actively bacteremic (12) Anemia: Plan: Hemoglobin low but stable from previous at 8.6, borderline microcytic Fe transferrin sat low at 16% -continue po FeSO4, would not give IV iron while bacteremic Other cell lines normal (13) Hypokalemia: Plan: Replaced and now resolved Follow BMP magnesium in the morning Secondary to Lasix (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 Not a good surgical candidate unless at tertiary care facility which patient has declined in the past was to f/u as outpt with Spine SUrgery or Neurosurgery as outpt (15) Paroxysmal ventricular tachycardia: Plan: On previous admission was having frequent runs of this, now improved with amiodarone transfer off tele (16) Pressure ulcer: Plan: pressure ulcer of left lateral hip, extending over left buttock, stage II, POA Pressure-induced deep tissue injury to R foot over 1st and 5th metatarsal head, R third/fourth/fifth toes, and medial sacrum, POA wound care, offload pressure Plan: VTE Prophylaxis - Eliquis Disposition -continued stay but downgrade to med/surg, eventual back to [facility] where he is a bed hold and his legal guardian is [facility]-hopefully Thursday if BCxs remain no growth and remains stable Reaffirmed with patient that he wishes to be a full code Palliative care consultation placed given that he has recurrent bacteremia and likely has endocarditis which can not be treated surgically and is likely to recur again in the future. This may lead to continued decline. Needs goals of care discussion with either patient or his guardian Admission and Anticipated Discharge Date Admission Date: September 21, 2021 Subjective Pt c/o pain in joints and requests hydrocodone be increased in frequency. ALso c/o itching in left calf and would like anti-itch cream. He denies any other problems. Tele with Afib, rates controlled, no VT Review of Systems Review of Systems: All systems reviewed & are unremarkable except as noted in HPI & below Physical Exam Constitutional: WD/WN, vitals as above Eyes: + anicteric sclerae Neck: trachea midline, no thyromegaly Respiratory: normal respiratory effort Auscultation: + diminished lung sounds (at bases) Cardiovascular: Rate/Rhythm: regular rate and + irregularly irregular Heart Sounds: no murmur Extremities: + edema (trace edema feet bilat) Chest (Breasts): Chest: normal inspection of chest Gastrointestinal (Abdomen): normal bowel sounds, soft, nontender, no hepatosplenomegaly Musculoskeletal: Extremities: + extremities abnormal to inspection (Flexion contractures in legs bilaterally), no cyanosis and no clubbing Skin: no rashes, warm and dry + lesion (Left heel with purplish discoloration), + wound (Multiple scabbed over abrasions over L knee,left hip large skin tear) and + ecchymosis (L 3-5th distal toes with purplish pressure sores,not open) Neurologic: moves all extremities and awake; no focal motor deficits Psychiatric: Orientation: alert, oriented to person, oriented to place and cooperative Lymphatic: no lymphedema Results & Data Results & Data ([facility]) Vital Signs (Past 12 Hours) Vital Signs Temp Pulse Resp BP Pulse Ox 09/28/21 08:00 36.9 C 82 22 129/59 L 97 09/28/21 04:00 36.8 C 73 14 103/65 96 09/28/21 00:00 36.6 C 87 24 124/60 97 Laboratory Results 09/27/21 05:03 09/28/21 05:31 PG Care Time/CCT Total # of Minutes Spent Total Time Spent with Patient: Total time spent is greater than 50% in coordination of care (as documented) at patient's floor/unit and/or counseling patient: Coding Level of Care Code 94759 Subseq Hosp Care Lvl 2 Diagnoses Metabolic encephalopathy G93.41 Acute respiratory failure with hypoxia J96.01 Sepsis A41.9 CHF (congestive heart failure) I50.9 Heart failure chronicity: unspecified Heart failure type: unspecified Bacteremia R78.81 Leukocytosis D72.829 Leukocytosis type: unspecified Hypertension I10 Hypertension type: essential hypertension Acute hyponatremia E87.1 BPH (benign prostatic hyperplasia) N40.0 Lower urinary tract symptom presence: symptoms absent Paroxysmal atrial fibrillation I48.0 Rheumatoid arthritis M06.9 Anemia D50.8 Anemia type: iron deficiency Iron deficiency anemia type: inadequate dietary iron intake Hypokalemia E87.6 Odontoid fracture S12.100A Paroxysmal ventricular tachycardia I47.2 Pressure ulcer L89.90 (1) CHF (congestive heart failure) Heart failure chronicity: unspecified Heart failure type: unspecified Qualified Code(s): I50.9 - Heart failure, unspecified (2) Leukocytosis Leukocytosis type: unspecified Qualified Code(s): D72.829 - Elevated white blood cell count, unspecified (3) Hypertension Hypertension type: essential hypertension Qualified Code(s): I10 - Essential (primary) hypertension (4) BPH (benign prostatic hyperplasia) Lower urinary tract symptom presence: symptoms absent Qualified Code(s): N40.0 - Benign prostatic hyperplasia without lower urinary tract symptoms (5) Anemia Anemia type: iron deficiency Iron deficiency anemia type: inadequate dietary iron intake Qualified Code(s): D50.8 - Other iron deficiency anemias
[2021-09-28] MEDS: ATORVASTATIN 40 MG TAB PO SCH (19:57)
[2021-09-29] MEDS: HYDROCODONE/ACETAMOPHEN 5/325MG TAB PO PRN ×4 (01:29→18:33)
[2021-09-29] MEDS: ceFAZolin 2000MG 2,000 MG/15 ML SYR IV SCH ×3 (05:37→20:24)
[2021-09-29] MEDS: DOCUSATE SODIUM 100 MG CAP PO SCH ×2 (08:23→16:41)
[2021-09-29] MEDS: predniSONE 10 MG TABLET PO SCH (08:23)
[2021-09-29] MEDS: rOPINIRole HCL 1 MG TABLET PO SCH ×2 (08:24→20:24)
[2021-09-29] MEDS: FUROSEMIDE 40 MG TAB PO SCH (08:24)
[2021-09-29] MEDS: AMIODARONE 200 MG TAB PO SCH (08:24)
[2021-09-29] MEDS: BACLOFEN 10 MG TAB PO SCH ×3 (08:24→20:32)
[2021-09-29] MEDS: APIXABAN 5 MG TABLET PO SCH ×2 (08:24→20:21)
[2021-09-29] MEDS: METOPROLOL SUCC 50MG EXT REL TAB PO SCH (08:24)
[2021-09-29] MEDS: DICLOFENAC SOD 1% GEL 100 GM TUBE EXT SCH ×4 (08:25→20:23)
[2021-09-29] MEDS: FERROUS SULFATE 325 MG TAB PO SCH (08:25)
[2021-09-29] MEDS: MULTIVITAMIN TAB PO SCH (08:25)
[2021-09-29] MEDS: TAMSULOSIN HCL 0.4 MG CAP PO SCH (08:26)
[2021-09-29] MEDS: POLYETHYLENE (MIRALAX) 17 GM PACK PO SCH (08:26)
[2021-09-29] MEDS: PANTOprazole 40 MG TAB PO SCH (08:26)
[2021-09-29] MEDS ORDERED: INFLUENZA VACCINE HIGH DOSE PF 65+ 0.7 ML SYR IM ONE (12:00)
--- NOTE | 2021-09-29 16:09 | Palliative Care Consultation ---
Date of Consultation September 29, 2021 Assessment & Plan (1) Palliative care encounter: Mr. Dailey is a 66 year old male is known to palliative care's service from a previous admission in July who presented to the [facility] from [facility] with increased respiratory distress and a period of unresponsiveness. He has an extensive PMH that includes: odontoid fracture and partial quadreplegia, HTN, BPH, and CHF. He has had persistent bacteremia/MSSA and endocarditis. Palliative Medicine was consulted to discuss overall goals of care. I met with David in his room. He was AAox3 and able to hold meaningful conversation. We discussed his overall condition and the liklihood of it continuing and the low probability of it being cured.We discussed what brings him jacob and waht is meaningful to him. He siad "I am only 66, I know and hear what people are saying, but I have to think there is more to my life". He siad that as long as the sun comes up every day, surviving is his goal. I asked him to reiterate and discuss further what he meant by that and he said that as long as he can watch cable TV and has the internet, that is quality of life for him. We did discuss his code status and the unliklihood of him having a meaningful recovery in the event that he suffered a cardiac or respiratory arrest. He stated that he would like to continue to be a full code and he would welcome that level of 'suffering'. I asked him to elaborate. He said "Like I said, surviving is my goal". I did ask him if he was fearful of dying and he said "yes, terrified". He said he is scared of what happens when he actually dies. He was clear that he does not have any one person that he would appoint to be a decision maker. He said he knows that [facility] had a conversation regarding guardianship, but thinks it was just that - a conversation. Would suggest case management follow up with [facility] regarding guardianship and next steps. For now, remain a full code with aggressive treatment. Palliative will follow peripherally for now. Thanks for consulting us. (2) Bacteremia: (3) Pressure ulcer: (4) Shortness of breath: (5) Anxiety: History of Present Illness Reason for Consultation: goals of care Requesting Physician: Dr. Collins Attending Physician: Lesley Collins MD History of Present Illness Mr. Dailey is a 66 year old male is known to palliative care's service from a previous admission in July who presented to the [facility] from [facility] with increased respiratory distress and a period of unresponsiveness. He has an extensive PMH that includes: odontoid fracture and partial quadreplegia, HTN, BPH, and CHF. He has had persistent bacteremia/MSSA and endocarditis. Palliative Medicine was consulted to discuss overall goals of care. Please see A/P for further details. Thanks for involving this man with our palliative services. Allergies Allergy/AdvReac Type Severity Reaction Status Date / Time gluten AdvReac Verified 07/14/21 17:25 Home Medications Medication Instructions Recorded Confirmed Type betamethasone dipropionate 0.05 % 1 applic TOPICAL BID PRN 05/11/21 09/21/21 History lotion atorvastatin 40 mg tablet 40 mg PO HS #0 tab 05/17/21 09/21/21 Rx etanercept 50 mg/mL (1 mL) 50 mg SUBCUT WK #12 ml 05/22/21 09/21/21 Rx subcutaneous syringe (Enbrel) acetaminophen 325 mg tablet 650 mg PO Q4H PRN MDD 3 GRAMS/24 06/05/21 09/21/21 History (Tylenol) HOURS docusate sodium 100 mg capsule 100 mg PO BIDM 06/05/21 09/21/21 History magnesium hydroxide 400 mg/5 mL 30 ml PO DAILY PRN 06/05/21 09/21/21 History oral suspension (Milk of Magnesia) omega-3 fatty acids 1,000 mg 1,000 mg PO BIDM 06/05/21 09/21/21 History capsule (Fish Oil Concentrate) ropinirole 2 mg tablet 2 mg PO Q12H 06/05/21 09/21/21 History multivitamin 1 tab PO DAILY 06/20/21 09/21/21 History apixaban 5 mg tablet (Eliquis) 5 mg PO BID 06/21/21 09/21/21 History albuterol sulfate 2.5 mg INHALATION Q6H PRN #0 ml 07/30/21 09/21/21 Rx amiodarone 200 mg tablet 200 mg PO BIDM #60 tab 07/30/21 09/21/21 Rx amlodipine 5 mg tablet (Norvasc) 5 mg PO QAM #30 tab 07/30/21 09/21/21 Rx baclofen 10 mg tablet 5 mg PO TID #90 tab 07/30/21 09/21/21 Rx diclofenac sodium 1 % topical gel 4 g EXT QID #1 tube 07/30/21 09/21/21 Rx (Voltaren Arthritis Pain) ferrous sulfate 325 mg (65 mg 325 mg PO DAILY #0 tab 07/30/21 09/21/21 Rx iron) tablet furosemide 20 mg tablet (Lasix) 20 mg PO DAILY PRN #30 tab 07/30/21 09/21/21 Rx hydrocodone 5 mg-acetaminophen 325 1 tab PO Q6H PRN #30 tab 07/30/21 09/21/21 Rx mg tablet lisinopril 5 mg tablet (Zestril) 10 mg PO QAM #0 tab 07/30/21 09/21/21 Rx metoprolol succinate 200 mg 200 mg PO DAILY #30 tab 07/30/21 09/21/21 Rx tablet,extended release 24 hr omeprazole 20 mg capsule,delayed 20 mg PO DAILY #30 cap 07/30/21 09/21/21 Rx release polyethylene glycol 3350 17 gram 17 g PO DAILY #30 ea 07/30/21 09/21/21 Rx oral powder packet (Miralax) potassium chloride 10 mEq 10 meq PO DAILY PRN #30 tab 07/30/21 09/21/21 Rx tablet,extended release prednisone 10 mg tablet 10 mg PO DIRECTED #20 tab 07/30/21 09/21/21 Rx tamsulosin 0.4 mg capsule (Flomax) 0.4 mg PO DAILY #30 cap 07/30/21 09/21/21 Rx Patient History Medical History Acute respiratory failure with hypoxemia Acute respiratory failure with hypoxia Anxiety Atrial flutter (2019) Chronic neck pain History of cardioversion Homeless single person Hx of fracture of leg left - not current Joint contracture of right lower leg Palliative care encounter Paroxysmal ventricular tachycardia Pneumonia Rheumatoid arthritis Shortness of breath Thoracic vertebral fracture Surgical History History of tooth extraction Family History Father Family history of diabetes mellitus Denies family history of Ovarian cancer Prostate cancer Myocardial infarction Breast cancer Colorectal cancer Social History Smoking Status: Unknown if ever smoked Tobacco Type: Cigarettes Age Started Using Tobacco: 16; Age Quit Using Tobacco: 50; packs per day: 1; Years Smoked: 34; Cigarettes Per Day: 20; Number of Years Since Quit: 15; Second Hand Exposure: No; Hx Alcohol Use: No Hx Substance Use: No Preferred Language: Turkmen Communication Ability: Effective Visual Impairment: No Limitations Hearing Ability: Normal 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 Of Engines Required: No Beliefs That Will Affect Care: None marital status: Single Current Living Situation: Care Home current occupational status: unemployed How many Children do You have: 3 Feels Safe at Home: Yes Childhood Exposure to Second-Hand Smoke: Yes during the past year weight has: increased > 10 lbs Dental Care, Regularly: Yes Physical Activity Frequency: Does not Exercise Seatbelt Use: always Sunscreen Use: No Assistive Devices: Oxygen - at Night Review of Systems Review of Systems: [place] System Assessment Scale: Pain: 0/3 SOB: 1/3 Anxiety: 1/3 Depression: 1/3 Lack of Appetite: 0/3 Palliative Performance Scale: 40% Physical Exam Constitutional: + disheveled and cooperative ENMT: Mouth: + dry oral mucous membranes Respiratory: normal respiratory effort Auscultation: + diminished lung sounds Cardiovascular: Rate/Rhythm: regular rate and regular rhythm Heart Sounds: normal S1, normal S2 and + murmur Extremities: normal capillary refill and + edema Gastrointestinal (Abdomen): Inspection/Auscultation: abdomen normal to inspection Percussion/Palpation: abdomen soft Skin: + pallor Psychiatric: Orientation: alert and oriented x 3 Insight: good insight Judgement: + limited judgement Results & Data ([facility]) Vital Signs (Past 12 Hours) Vital Signs Temp Pulse Resp BP Pulse Ox 09/29/21 15:32 36.7 C 81 20 92/53 L 97 09/29/21 06:55 36.7 C 87 18 117/73 98 PG Care Time/CCT Total # of Minutes Spent Total Time Spent with Patient: Total time spent is greater than 50% in coordination of care (as documented) at patient's floor/unit and/or counseling patient: 100 minutes with > 50% of that time spent assessing the patient, discussing goals of care with patient and collaborating with IDT Coding Level of Care Code 90761 Initial Inpt Care Lvl 3 Diagnoses Palliative care encounter Z51.5 Bacteremia R78.81 Pressure ulcer L89.90 Shortness of breath R06.02 Anxiety F41.9 Time Spent (min) 100
--- NOTE | 2021-09-29 19:01 | Hospitalist Progress Note ---
Date of Service September 29, 2021 Assessment & Plan (1) Metabolic encephalopathy: Plan: Secondary to hypoxia from CHF but also possibly due to bacteremia as below in the setting of baseline cognitive impairment Improved compared to admission, but confabulates at times, has looseness of associations, and also paranoia at times Continue treating Bacteremia with antibiotics Continue to treat CHF with diuresis (2) Acute respiratory failure with hypoxia: Plan: Probably multifactorial-now resolved A combination of CHF exacerbation, pleural effusion Patient initially on BIPAP, now weaned off to room air except when sleeping, except he really likes O2 for comfort even when has normal POx Chest x-ray 09/25 again with opacities bilateral atelectasis versus aspiration versus pulmonary edema continue Lasix 40 mg po every other day as per cardiology recommendation Continue BiPAP at nighttime and with naps if tolerated (3) Sepsis: Plan: Sepsis, POA now resolved (4) CHF (congestive heart failure): Plan: With acute on chronic diastolic CHF Most recent echocardiogram here with EF 40-45%, resolution of pericardial effusion, mildly dilated RV proBNP elevated at 32,000 on admission and now down to 19,000 Was hypoxic requiring BiPAP upon admission and now on room air after diuresis with IV lasix Lasix dosing as above Replace potassium as needed Follow BMP and magnesium in the morning Hyponatremia now improved with diuresis Daily weights, I's and O's, low-sodium diet Plan to discontinue Davis catheter in the morning with trial of void (5) Bacteremia: Plan: Growing MSSA in initial blood cultures from 09/21, 09/23, and again with GPC on cultures from 09/24 He has a history of this previously back in 05/2021 which was treated with 6 weeks of IV Ancef He is not able to have a ALE due to 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, but transthoracic echocardiogram without obvious valvular vegetation He has multiple abrasions all over his legs and ankles and toes as well as left hip wound, no cellulitis--> could be the source but could also be as a result of endocarditis CT abd/pel no source of infection but show anasarca UA no infection Cardiology consultation appreciated-certainly cannot undergo ALE due to his C1 fracture ID consult appreciated-we do not have ability to perform PET scan, WBC tagged scan, or cardiac MRI to further assess for source of infection or endocarditis Even if had significant endocarditis, he would not be a good surgical candidate for valve replacement Further discussed with ID on 09/25-options are to continue to treat with IV antibiotics long-term but he would be at high risk for recurrence and palliative consultation is in order Do not place PICC line until bacteremia clears-plan to place PICC line on Sunday 09/30 He was also on vancomycin and Zosyn which do not have his good activity against MSSA-now on cefazolin since 09/24 so hopefully this will help -Repeat blood cultures again on 09/25 are remaining NGTD, fortunately -Continue IV Ancef with last date of treatment being 11/06/2021 ESR 55 and now down to 42, CRP 11-trend ESR, CRP, CBC, CMP in the morning and then once weekly Plan to place PICC line Thursday if BCxs continue to remain no growth (6) Leukocytosis: Plan: now resolved Continue treating bacteremia as above Follow CBC (7) Hypertension: Plan: Hold lisinopril while diuresing but cannot restart due to soft blood pressures amlodipine also on hold and may not need this moving forward BPs controlled Lasix as above (8) Acute hyponatremia: Plan: Suspect secondary to acute heart failure. Improving with diuresis up to 133 -continue diuresis Monitor BMP (9) BPH (benign prostatic hyperplasia): Plan: Continue tamsulosin 0.4mg PO daily dc Davis and trial of void in the morning (10) Paroxysmal atrial fibrillation: Plan: Rate controlled Continue metoprolol succinate with hold parameters Continue amiodarone but decrease dose to 200 mg once daily as per cardiology recommendation Of note, amiodarone was actually started for VT, not for A. fib If rate control becomes an issue, could increase dose of metoprolol Continue Eliquis for stroke prophylaxis He should have outpatient follow-up with cardiology after discharge Replace potassium to keep greater than or equal to 4.0 no significant VT this admission--> have since transferred off tele (11) Rheumatoid arthritis: Plan: Continue prednisone-unclear what home dose is as he was discharged on 10 mg daily just 2 months ago Increased prednisone to 10 mg daily for now Follows with rheumatology as an outpatient Hold Enbrel while actively bacteremic (12) Anemia: Plan: Hemoglobin low but stable from previous at 8.6, borderline microcytic Fe transferrin sat low at 16% -continue po FeSO4, would not give IV iron while bacteremic Other cell lines normal (13) Hypokalemia: Plan: Replaced and now resolved Follow BMP magnesium in the morning Secondary to Lasix (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 3 times daily (15) Paroxysmal ventricular tachycardia: Plan: On previous admission was having frequent runs of this, now improved with amiodarone Has since been transferred off telemetry (16) Pressure ulcer: Plan: pressure ulcer of left lateral hip, extending over left buttock, stage II, POA Pressure-induced deep tissue injury to R foot over 1st and 5th metatarsal head, R third/fourth/fifth toes, and medial sacrum, POA wound care, offload pressure Plan: VTE Prophylaxis - Eliquis Disposition -continued stay on med/surg, eventual back to [facility] where he is a bed hold and his legal guardian is [facility]-hopefully Thursday/Thursday if BCxs remain no growth and remains stable and [facility] can accept him back Reaffirmed with patient that he wishes to be a full code Palliative care consultation placed given that he has recurrent bacteremia and likely has endocarditis which can not be treated surgically and is likely to recur again in the future. This may lead to continued decline. Needed goals of care discussion-appreciate palliative consultation-patient reports that he would have good quality of life as long as he can watch television. He also values pain control. He continues to want to be a full code and says he is not ready to . Admission and Anticipated Discharge Date Admission Date: September 21, 2021 Subjective Patient has been a little bit paranoid today as per nursing. He has been asking the nurses if he was ever convicted of murder. He asked me if he could stay in the hospital longer because he does feel safer [facility] than at the [facility], because he feels he is getting better care here. But then after that, he stated "okay so you are not going to kill me?" in a sincere fashion. He is also asking for "a shot in my hamstring to take my pain away." He has a lot of spasms in the legs. When we discussed getting a PICC line, he did ask that the PICC line be placed on the outside of his right upper arm. He is convinced that the last time he had a PICC line is what caused him to have weakness in his arms. I reminded him that this was most likely secondary to the cervical spine radiculopathy that he has. Review of Systems Review of Systems: All systems reviewed & are unremarkable except as noted in HPI & below Physical Exam Constitutional: WD/WN, vitals as above Eyes: + anicteric sclerae Neck: trachea midline, no thyromegaly Respiratory: normal respiratory effort, lungs clear to auscultation Auscultation: + diminished lung sounds (at bases) Cardiovascular: Rate/Rhythm: regular rate and + irregularly irregular Heart Sounds: no murmur Extremities: + edema (trace edema feet bilat) Chest (Breasts): Chest: normal inspection of chest Gastrointestinal (Abdomen): normal bowel sounds, soft, nontender, no hepatosplenomegaly Musculoskeletal: Extremities: + extremities abnormal to inspection (Flexion contractures in legs bilaterally), no cyanosis and no clubbing Skin: no rashes, warm and dry + lesion (Left heel with purplish disc oloration), + wound (Multiple scabbed over abrasions over L knee,left hip large skin tear) and + ecchymosis (L 3-5th distal toes with purplish pressure sores,not open) Neurologic: moves all extremities and awake; no focal motor deficits Psychiatric: Orientation: alert, oriented to person, oriented to place and cooperative Thought Process: + looseness of associations Thought Content: + paranoid Lymphatic: no lymphedema Results & Data Results & Data ([facility]) Vital Signs (Past 12 Hours) Vital Signs Temp Pulse Resp BP Pulse Ox 09/29/21 15:32 36.7 C 81 20 92/53 L 97 PG Care Time/CCT Total # of Minutes Spent Total Time Spent with Patient: Total time spent is greater than 50% in coordination of care (as documented) at patient's floor/unit and/or counseling patient: Coding Level of Care Code 70902 Subseq Hosp Care Lvl 3 Diagnoses Metabolic encephalopathy G93.41 Acute respiratory failure with hypoxia J96.01 Sepsis A41.9 CHF (congestive heart failure) I50.9 Heart failure chronicity: unspecified Heart failure type: unspecified Bacteremia R78.81 Leukocytosis D72.829 Leukocytosis type: unspecified Hypertension I10 Hypertension type: essential hypertension Acute hyponatremia E87.1 BPH (benign prostatic hyperplasia) N40.0 Lower urinary tract symptom presence: symptoms absent Paroxysmal atrial fibrillation I48.0 Rheumatoid arthritis M06.9 Anemia D50.8 Anemia type: iron deficiency Iron deficiency anemia type: inadequate dietary iron intake Hypokalemia E87.6 Odontoid fracture S12.100A Paroxysmal ventricular tachycardia I47.2 Pressure ulcer L89.90 (1) BPH (benign prostatic hyperplasia) Lower urinary tract symptom presence: symptoms absent Qualified Code(s): N40.0 - Benign prostatic hyperplasia without lower urinary tract symptoms (2) CHF (congestive heart failure) Heart failure chronicity: unspecified Heart failure type: unspecified Qualified Code(s): I50.9 - Heart failure, unspecified (3) Anemia Anemia type: iron deficiency Iron deficiency anemia type: inadequate dietary iron intake Qualified Code(s): D50.8 - Other iron deficiency anemias (4) Leukocytosis Leukocytosis type: unspecified Qualified Code(s): D72.829 - Elevated white blood cell count, unspecified (5) Hypertension Hypertension type: essential hypertension Qualified Code(s): I10 - Essential (primary) hypertension
[2021-09-29] MEDS: ATORVASTATIN 40 MG TAB PO SCH (20:23)
[2021-09-30] MEDS: HYDROCODONE/ACETAMOPHEN 5/325MG TAB PO PRN ×3 (00:08→18:25)
[2021-09-30] MEDS: ceFAZolin 2000MG 2,000 MG/15 ML SYR IV SCH ×3 (05:04→20:30)
[2021-09-30] MEDS: BACLOFEN 10 MG TAB PO SCH ×3 (07:50→20:33)
[2021-09-30 07:51] LABS: Basophils # (auto) 0.01 K/uL (0-0.2); Basophils % (auto) 0.1 %; Eosinophils # (auto) 0.28 K/uL (0-0.5); Eosinophils % (auto) 3.2 %; Hematocrit (blood only) 31.2 % (42-52); Hemoglobin 9.9 g/dL (14.0-18.0); Immature Granulocytes # (auto) 0.05 K/uL (0.00-0.02); Immature Granulocytes % (auto) 0.6 %; Lymphocytes # (auto) 1.31 K/uL (1.2-3.4); Lymphocytes % (auto) 14.9 %; Mean Corpuscular Hemoglobin 26.6 pg (25-34); Mean Corpuscular Hgb Conc 31.7 g/dL (32-36); Mean Corpuscular Volume 83.9 fL (80-100); Mean Platelet Volume 8.5 fL (7.4-10.4); Monocytes # (auto) 0.43 K/uL (0.11-0.59); Monocytes % (auto) 4.9 %; Neutrophils # (auto) 6.71 K/uL (1.4-6.5); Neutrophils % (auto) 76.3 %; Platelet Count 477 K/uL (130-400); RDW Coefficient of Variation 18.5 % (11.5-14.5); RDW Standard Deviation 55.8 fL (36.4-46.3); Red Blood Count 3.72 M/uL (4.7-6.1); White Blood Count 8.79 K/uL (4.8-10.8)
[2021-09-30] MEDS: MULTIVITAMIN TAB PO SCH (07:51)
[2021-09-30] MEDS: TAMSULOSIN HCL 0.4 MG CAP PO SCH (07:51)
[2021-09-30] MEDS: METOPROLOL SUCC 50MG EXT REL TAB PO SCH (07:51)
[2021-09-30] MEDS: predniSONE 10 MG TABLET PO SCH (07:52)
[2021-09-30] MEDS: FERROUS SULFATE 325 MG TAB PO SCH (07:52)
[2021-09-30] MEDS: PANTOprazole 40 MG TAB PO SCH (07:52)
[2021-09-30] MEDS: APIXABAN 5 MG TABLET PO SCH ×2 (07:52→20:31)
[2021-09-30] MEDS: AMIODARONE 200 MG TAB PO SCH (07:52)
[2021-09-30] MEDS: DOCUSATE SODIUM 100 MG CAP PO SCH ×2 (07:53→18:24)
[2021-09-30] MEDS: DICLOFENAC SOD 1% GEL 100 GM TUBE EXT SCH ×4 (07:53→20:29)
[2021-09-30] MEDS: POLYETHYLENE (MIRALAX) 17 GM PACK PO SCH (07:53)
[2021-09-30] MEDS: rOPINIRole HCL 1 MG TABLET PO SCH ×2 (07:53→20:30)
[2021-09-30 08:24] LABS: Albumin Level 1.5 gm/dl (3.4-5.0); BUN Creatinine Ratio 50.3 (10-20); C Reactive Protein 4.36 mg/dl (0-0.29); Calcium 7.6 mg/dl (8.5-10.1); Creatinine Clr Calc Pharmacy 145.3 ml/min; Est GFR (African American) 130.9 ml/min; Est GFR (Non-African American) 112.9 ml/min; Magnesium 2.1 mg/dl (1.8-2.4); Potassium 3.8 mmol/L (3.5-5.1)
[2021-09-30 08:27] LABS: Albumin Globulin Ratio 0.4 (0.9-2); Bilirubin,Total 0.2 mg/dl (0.2-1); Globulin 3.7 gm/dl (2.5-4.0); Total Protein 5.2 gm/dl (6.4-8.2)
--- NOTE | 2021-09-30 17:58 | Hospitalist Progress Note ---
Date of Service September 30, 2021 Assessment & Plan (1) Metabolic encephalopathy: Plan: Secondary to hypoxia from CHF but also possibly due to bacteremia as below in th e setting of baseline cognitive impairment Improved compared to admission, but confabulates at times, has looseness of associations, and also paranoia at times Continue treating Bacteremia with antibiotics Continue to treat CHF with diuresis (2) Acute respiratory failure with hypoxia: Plan: Probably multifactorial-now resolved A combination of CHF exacerbation, pleural effusion Patient initially on BIPAP, now weaned off to room air except when sleeping, except he really likes O2 for comfort even when has normal POx Chest x-ray 09/25 again with opacities bilateral atelectasis versus aspiration versus pulmonary edema continue Lasix 40 mg po every other day as per cardiology recommendation Continue BiPAP at nighttime and with naps if tolerated (3) Sepsis: Plan: Sepsis, POA (patient presenting with a white blood cell count of 16.9, hypotension of 93/48, tachypnea of 26) now resolved (4) CHF (congestive heart failure): Plan: With acute on chronic diastolic CHF Most recent echocardiogram here with EF 40-45%, resolution of pericardial effusion, mildly dilated RV proBNP elevated at 32,000 on admission and now down to 19,000 Was hypoxic requiring BiPAP upon admission and now on room air after diuresis with IV lasix Lasix dosing every other day as recommended by cardiology Replace potassium as needed Follow BMP and magnesium in the morning Hyponatremia now improved with diuresis Daily weights, I's and O's, low-sodium diet DC Davis catheter (5) Bacteremia: Plan: Growing MSSA in initial blood cultures from 09/21, 09/23, and again with GPC on cultures from 09/24 He has a history of this previously back in 05/2021 which was treated with 6 weeks of IV Ancef He is not able to have a ALE due to 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, but transthoracic echocardiogram without obvious valvular vegetation He has multiple abrasions all over his legs and ankles and toes as well as left hip wound, no cellulitis--> could be the source but could also be as a result of endocarditis Known wound to left ankleWill obtain an MRI as this could be the source CT abd/pel no source of infection but show anasarca UA no infection Cardiology consultation appreciated-certainly cannot undergo ALE due to his C1 fracture ID consult appreciated-we do not have ability to perform PET scan, WBC tagged scan, or cardiac MRI to further assess for source of infection or endocarditis Even if had significant endocarditis, he would not be a good surgical candidate for valve replacement Further discussed with ID on 09/25-options are to continue to treat with IV antibiotics long-term but he would be at high risk for recurrence Has been seen by palliative care Repeat blood cultures done 09/25 showing no growth to date. Plan to undergo PICC linelikely tomorrow now on Cefazolin for MSSA -Continue IV Ancef with last date of treatment being 11/06/2021 ESR 55 and now down to 42, CRP 11-trend ESR, CRP, CBC, CMP in the morning and then once weekly Plan to place PICC line tomorrow and subsequently D/C back to [facility] (6) Leukocytosis: Plan: now resolved Continue treating bacteremia as above Follow CBC (7) Hypertension: Plan: held lisinopril while diuresing --BP's remain marginally low amlodipine also on hold and may not need this moving forward BPs controlled Lasix as above (8) Acute hyponatremia: Plan: Suspect secondary to acute heart failure. Improving with diuresis up to 133 -continue diuresis Monitor BMP (9) BPH (benign prostatic hyperplasia): Plan: Continue tamsulosin 0.4mg PO daily dc Davis and trial of void in the morning (10) Paroxysmal atrial fibrillation: Plan: Rate controlled Continue metoprolol succinate with hold parameters Continue amiodarone but decrease dose to 200 mg once daily as per cardiology recommendation Of note, amiodarone was actually started for VT, not for A. fib If rate control becomes an issue, could increase dose of metoprolol Continue Eliquis for stroke prophylaxis He should have outpatient follow-up with cardiology after discharge Replace potassium to keep greater than or equal to 4.0 no significant VT this admission--> have since transferred off tele (11) Rheumatoid arthritis: Plan: Continue prednisone-unclear what home dose is as he was discharged on 10 mg daily just 2 months ago Increased prednisone to 10 mg daily for now Follows with rheumatology as an outpatient Hold Enbrel while actively bacteremic (12) Anemia: Plan: Hemoglobin low but stable from previous at 8.6, borderline microcytic Fe transferrin sat low at 16% -continue po FeSO4, would not give IV iron while bacteremic Other cell lines normal H/H stable (13) Hypokalemia: Plan: Replaced and now resolved Follow BMP magnesium in the morning Secondary to Lasix (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 3 times daily (15) Paroxysmal ventricular tachycardia: Plan: On previous admission was having frequent runs of this, now improved with amiodarone Has since been transferred off telemetry (16) Pressure ulcer: Plan: pressure ulcer of left lateral hip, extending over left buttock, stage II, POA Pressure-induced deep tissue injury to R foot over 1st and 5th metatarsal head, R third/fourth/fifth toes, and medial sacrum, POA wound care, offload pressure MRI as outlined above Plan: VTE Prophylaxis - Eliquis Disposition -continued stay on med/surg, eventual back to [facility] where he is a bed hold and his legal guardian is [facility]-PICC line tomorrow Reaffirmed with patient that he wishes to be a full code Palliative care consultation placed given that he has recurrent bacteremia and likely has endocarditis which can not be treated surgically and is likely to recur again in the future. This may lead to continued decline. Needed goals of care discussion-appreciate palliative consultation-patient reports that he would have good quality of life as long as he can watch television. He also values pain control. He continues to want to be a full code and says he is not ready t o . Admission and Anticipated Discharge Date Admission Date: September 21, 2021 Subjective Patient seen on daily rounds today. Vocalizes no significant complaints or abelardo rns. Denies fevers, chills, chest pain, shortness of breath, abdominal pain, nausea or vomiting. Review of Systems Review of Systems: All systems reviewed and are unremarkable except as noted in HPI and below Denies fevers, chills, headache, nasal congestion, sore throat, cough, chest pain, shortness of breath, palpitations, orthopnea, PND, abdominal pain, nausea, vomiting, diarrhea, constipation, dysuria, hematuria, frequency, back pain, joint pain or swelling, easy bruising or bleeding, skin lesions or rashes. Physical Exam Physical Exam: General: Resting comfortably in his hospital bed. Very flat affect. Does not appear ill or toxic.. NAD. HEENT: Head is AT/NC buccal mucosa is moist and pink Neck: No JVD. Negative hepatojugular reflex Cardiac: RRR without M/G/R Lungs: CTA without W/R/R Abdomen: Normoactive X4. Soft and nontender in all quadrants. Extremities: Contractures noted of the upper and lower extremities bilaterally with limited mobility Neuro: A&O X4 cranial nerves II through XII are grossly intact no focal neuro deficits Skin: Attempted to assess wound on left ankle; however, given contractures, unable to fully examine ankle Psych: Appropriate affect pleasant and cooperative Results & Data Results & Data ([facility]) Vital Signs (Past 12 Hours) Vital Signs Temp Pulse Resp BP Pulse Ox 09/30/21 15:20 36.7 C 80 16 99/59 L 96 09/30/21 07:22 36.8 C 81 16 95/54 L 95 Laboratory Results 09/30/21 07:13 09/30/21 07:13 PG Care Time/CCT Total # of Minutes Spent Total Time Spent with Patient: Total time spent is greater than 50% in coordination of care (as documented) at patient's floor/unit and/or counseling patient: Coding Level of Care Code 91693 Subseq Hosp Care Lvl 2 Diagnoses Metabolic encephalopathy G93.41 Acute respiratory failure with hypoxia J96.01 Sepsis A41.9 CHF (congestive heart failure) I50.9 Heart failure chronicity: unspecified Heart failure type: unspecified Bacteremia R78.81 Leukocytosis D72.829 Leukocytosis type: unspecified Hypertension I10 Hypertension type: essential hypertension Acute hyponatremia E87.1 BPH (benign prostatic hyperplasia) N40.0 Lower urinary tract symptom presence: symptoms absent Paroxysmal atrial fibrillation I48.0 Rheumatoid arthritis M06.9 Anemia D50.8 Anemia type: iron deficiency Iron deficiency anemia type: inadequate dietary iron intake Hypokalemia E87.6 Odontoid fracture S12.100A Paroxysmal ventricular tachycardia I47.2 Pressure ulcer L89.90 (1) CHF (congestive heart failure) Heart failure chronicity: unspecified Heart failure type: unspecified Qualified Code(s): I50.9 - Heart failure, unspecified (2) Leukocytosis Leukocytosis type: unspecified Qualified Code(s): D72.829 - Elevated white blood cell count, unspecified (3) Hypertension Hypertension type: essential hypertension Qualified Code(s): I10 - Essential (primary) hypertension (4) BPH (benign prostatic hyperplasia) Lower urinary tract symptom presence: symptoms absent Qualified Code(s): N40.0 - Benign prostatic hyperplasia without lower urinary tract symptoms (5) Anemia Anemia type: iron deficiency Iron deficiency anemia type: inadequate dietary iron intake Qualified Code(s): D50.8 - Other iron deficiency anemias
[2021-09-30] MEDS: ATORVASTATIN 40 MG TAB PO SCH (20:31)
[2021-09-30] MEDS ORDERED: GADOBUTROL 65ML VIAL IV ONE (22:17)
--- NOTE | 2021-09-30 22:58 | Magnetic Resonance Report ---
MR ankle LT wo/w con CLINICAL HISTORY: bacteremia.. History of ankle pain and heel wound. Evaluate for possible Osteo/asb cess/tenosynovitis. COMPARISON STUDY: 07/06/2021 TECHNIQUE: Multiplanar multisequence images of the left ankle were performed with and without IV con trast. Contrast Volume: 7.5 ml of Gadavist FINDINGS: This is an extremely limited study due to patient positioning and inability to use a standa rd ankle coil. No T2-weighted or STIR-weighted images were performed. Osseous structures: On T1-weighted images, homogeneous marrow signal seen throughout the imaged bone s of the ankle. There is no evidence for marrow edema or marrow replacement. There is no abnormal mar row enhancement following contrast administration. There is no evidence for an acute or occult fractu re. There is no evidence for cortical destruction or definite MR evidence for osteomyelitis. Joints: The tibiotalar joint is maintained. There is no evidence for joint effusion. No osteochondra l defects are seen at the talar dome. The subtalar joint is maintained. Tendons: The tibialis posterior tendon as well as the flexor digitorum longus and hallucis longus ten dons demonstrate anatomic signal characteristics. The peroneus longus and brevis tendons are within normal limits. There is no evidence for tendon tear or tendinopathy. The Achilles' tendon is within normal limits. There is no evidence for tendinopathy on the current study. Ligaments: The anterior and posterior tibiofibular and talofibular ligaments are intact. Deltoid comp eric is within normal limits. The calcaneofibular ligament is also within normal limits. Soft tissues: The subcutaneous soft tissues are within normal limits. There is no abnormal soft tissu e enhancement following contrast administration. No focal fluid collections are identified. No defin ite soft tissue ulcerations are identified. IMPRESSION: Extremely limited examination as described above. There is no definite MR evidence for o steomyelitis. There is no evidence for Achilles tendinopathy. No other tendinous abnormality can be i dentified. No soft tissue ulceration is seen. ACT 112: Negative or not required by law. Electronically signed by: Alex Lobato M.D. 09/30/2021 10:56 PM
[2021-10-01] MEDS: HYDROCODONE/ACETAMOPHEN 5/325MG TAB PO PRN ×2 (02:59→07:30)
[2021-10-01] MEDS: ceFAZolin 2000MG 2,000 MG/15 ML SYR IV SCH ×2 (05:59→13:21)
[2021-10-01 07:17] LABS: Basophils # (auto) 0.02 K/uL (0-0.2); Basophils % (auto) 0.2 %; Eosinophils # (auto) 0.23 K/uL (0-0.5); Eosinophils % (auto) 2.4 %; Hematocrit (blood only) 31.9 % (42-52); Hemoglobin 10.1 g/dL (14.0-18.0); Immature Granulocytes # (auto) 0.04 K/uL (0.00-0.02); Immature Granulocytes % (auto) 0.4 %; Lymphocytes % (auto) 11.7 %; Mean Corpuscular Hemoglobin 26.6 pg (25-34); Mean Corpuscular Hgb Conc 31.7 g/dL (32-36); Mean Corpuscular Volume 84.2 fL (80-100); Mean Platelet Volume 8.6 fL (7.4-10.4); Monocytes # (auto) 0.42 K/uL (0.11-0.59); Monocytes % (auto) 4.4 %; Neutrophils # (auto) 7.63 K/uL (1.4-6.5); Neutrophils % (auto) 80.9 %; Platelet Count 500 K/uL (130-400); RDW Coefficient of Variation 18.8 % (11.5-14.5); RDW Standard Deviation 55.4 fL (36.4-46.3); Red Blood Count 3.79 M/uL (4.7-6.1); White Blood Count 9.44 K/uL (4.8-10.8)
[2021-10-01] MEDS: METOPROLOL SUCC 50MG EXT REL TAB PO SCH (07:31)
[2021-10-01] MEDS: rOPINIRole HCL 1 MG TABLET PO SCH (07:31)
[2021-10-01] MEDS: DOCUSATE SODIUM 100 MG CAP PO SCH (07:31)
[2021-10-01] MEDS: POLYETHYLENE (MIRALAX) 17 GM PACK PO SCH (07:31)
[2021-10-01] MEDS: APIXABAN 5 MG TABLET PO SCH (07:31)
[2021-10-01] MEDS: BACLOFEN 10 MG TAB PO SCH ×2 (07:32→13:22)
[2021-10-01] MEDS: TAMSULOSIN HCL 0.4 MG CAP PO SCH (07:32)
[2021-10-01] MEDS: DICLOFENAC SOD 1% GEL 100 GM TUBE EXT SCH ×2 (07:34→13:21)
[2021-10-01 07:49] LABS: BUN Creatinine Ratio 43.4 (10-20); Calcium 8.2 mg/dl (8.5-10.1); Creatinine Clr Calc Pharmacy 111.8 ml/min; Est GFR (African American) 117.5 ml/min; Est GFR (Non-African American) 101.4 ml/min; Magnesium 2.3 mg/dl (1.8-2.4); Potassium 3.6 mmol/L (3.5-5.1)
[2021-10-01] MEDS: predniSONE 10 MG TABLET PO SCH (08:24)
[2021-10-01] MEDS: FUROSEMIDE 40 MG TAB PO SCH (08:24)
[2021-10-01] MEDS: FERROUS SULFATE 325 MG TAB PO SCH (08:24)
[2021-10-01] MEDS: MULTIVITAMIN TAB PO SCH (08:24)
[2021-10-01] MEDS: AMIODARONE 200 MG TAB PO SCH (08:24)
[2021-10-01] MEDS: PANTOprazole 40 MG TAB PO SCH (08:24)
--- NOTE | 2021-10-01 17:31 | Discharge Summary ---
Date of Service October 01, 2021 Admission HPI Per Admitting Provider David Dailey is a 66 year old male from [facility] who presents to the ER after a hypoxic episode and unresponsiveness earlier today. The patient is currently awake and orientated but with some difficulty communicating tells me he is here because he had an argument with the physical therapist that he didn't want to do physical therapy today but they got him up into a wheelchair but cannot tell me what happened after that. Patient has a POLST form wishing for full treatment and full code. Per ER note [facility] have been increasing his Lasix significantly however from documentation he was given started on it today at just 20mg PO. Per EMS he was placed on CPAP and mentation has improved significantly since then. He denies any fever, chills, cough. He does report feeling generalized weakness getting worse over the last week and they have needed to use the chair lift more. In the ER VBG shows he is not retaining CO2. He remains on CPAP at this time. Lasix 40mg IV given. Levaquin also given to cover for bacterial pneumonia. He was referred to medicine for acute hypoxic respiratory failure and CHF. Principal Diagnosis 1. Metabolic encephalopathylikely secondary to hypoxemia from respiratory failure and infectious encephalopathy from bacteremia 2. Acute respiratory failure with hypoxemiad/t acute uncompensated CHF with pleural effusion (resolved) 3. BacteremiaMSSA (Continue IV Ancef with last date of treatment being 11/06/2021) 4. Acute hyponatremia (hypervolemic)resolved with diuresis Discharge Exam General: Resting comfortably in his hospital bed. Very flat affect. Does not appear ill or toxic.. NAD. HEENT: Head is AT/NC buccal mucosa is moist and pink Neck: No JVD. Negative hepatojugular reflex Cardiac: RRR without M/G/R Lungs: CTA without W/R/R Abdomen: Normoactive X4. Soft and nontender in all quadrants. Extremities: Contractures noted of the upper and lower extremities bilaterally with limited mobility Neuro: A&O X4 cranial nerves II through XII are grossly intact no focal neuro deficits Skin: Attempted to assess wound on left ankle; however, given contractures, u nable to fully examine ankle Psych: Appropriate affect pleasant and cooperative Discharge Data Allergies Allergy/AdvReac Type Severity Reaction Status Date / Time gluten AdvReac Verified 07/14/21 17:25 Consultations 09/21/21 11:19 ED Decision to Admit Stat 09/24/21 08:40 Consult Infectious Diseases Routine Recommendations are for 6 weeks of IV cefazolin as he is high risk for recurrence. Unable to do ALE to rule out abscess given cervical fracture. Unable to facilitate cardiac MRI/PET scan (these can be done as an outpatient) but patient would not be an ideal surgical candidate regardless. 09/25/21 07:31 Consult Cardiology Routine (1) MSSA bacteremia: Etiology uncertain, transesophageal echocardiogram not an option (see below). Cardiac MRI/PET scan and WBC scan not available at [facility]. Patient would be a very poor surgical candidate if he does have an intracardiac abscess, suppressive antibiotics may be preferable. Would ask for ID recommendations regarding transition from IV to oral antibiotics at some point which may need to be administered long-term as maintenance medication. (2) Odontoid fracture with nonunion: This represents an absolute contraindication to transesophageal echocardiogram, since the neck manipulation often necessary during the procedure could result in quadriplegia or . (3) Persistent atrial fibrillation: He did undergo electrical cardioversion early 2019 for atrial flutter and apparently remained in sinus rhythm until May 2021. At this point, perhaps a rate control strategy would be more appropriate, since he is chronically anticoagulated and apparently has not had recent tachydysrhythmias. Would recommend reducing amiodarone from 200 mg twice daily to 200 mg daily to decrease risk of side effects from long-term amiodarone use. If heart rate increased, could add metoprolol to his regimen to maintain adequate rate control. As noted, eventually taper amiodarone off completely and replace with beta-lois if rate control strategy is pursued. It was not clear to me who is managing his cardiac status, since he has had only inpatient encounters. (4) Heart failure with mid-range ejection fraction: Not clear to what degree his heart failure played a role in his decompensation. His initial chest x-ray does not show pulmonary vascular congestion. There was no evidence of pulmonary embolism on CT. Currently, he does not appear significantly volume overloaded. Although his baseline diuretic dose is furosemide 20 mg p.o. daily as needed, in my experience this dose is often below the threshold necessary for adequate diuresis. Would be preferable to either have a weight-based regimen (which would be difficult given his debilitated status) or if chronic diuretic felt necessary initiate furosemide 40 mg Q2D (every other day). Follow-up chest x-ray will be helpful in reassessing his volume status. (5) Acute respiratory failure with hypoxia: As noted, etiology for this is uncertain. (6) Debilitated: Patient with multiple major comorbidities including ambulatory dysfunction, persistent atrial fibrillation, recurrent heart failure, unexplained acute respiratory failure episodes (has occurred in the past), rheumatoid arthritis, odontoid fracture with nonunion, skin ulcerations, and recurrent bacteremia. At this point, he will be subject to increasingly intrusive interventions with diminishing returns in regards of quality of life. I'm not familiar with his family situation and the patient was unable to have a conversation, but goals of care should be reassessed given both chronic and acute findings (underlying conditions with current bacteremia and recent respiratory failure). 09/25/21 15:27 Consult Palliative Care Routine (1) Palliative care encounter: Mr. Dailey is a 66 year old male is known to palliative care's service from a previous admission in July who presented to the [facility] from [facility] with increased respiratory distress and a period of unresponsiveness. He has an extensive PMH that includes: odontoid fracture and partial quadreplegia, HTN, BPH, and CHF. He has had persistent bacteremia/MSSA and endocarditis. Palliative Medicine was consulted to discuss overall goals of care. I met with David in his room. He was AAox3 and able to hold meaningful conversation. We discussed his overall condition and the liklihood of it continuing and the low probability of it being cured.We discussed what brings him jacob and waht is meaningful to him. He siad "I am only 66, I know and hear what people are saying, but I have to think there is more to my life". He siad that as long as the sun comes up every day, surviving is his goal. I asked him to reiterate and discuss further what he meant by that and he said that as long as he can watch cable TV and has the internet, that is quality of life for him. We did discuss his code status and the unliklihood of him having a meaningful recovery in the event that he suffered a cardiac or respiratory arrest. He stated that he would like to continue to be a full code and he would welcome that level of 'suffering'. I asked him to elaborate. He said "Like I said, surviving is my goal". I did ask him if he was fearful of dying and he said "yes, terrified". He said he is scared of what happens when he actually dies. He was clear that he does not have any one person that he would appoint to be a decision maker. He said he knows that [facility] had a conversation regarding guardianship, but thinks it was just that - a conversation. Would suggest case management follow up with [facility] regarding guardianship and next steps. For now, remain a full code with aggressive treatment. Palliative will follow peripherally for now. Thanks for consulting us. Ordered Studies 09/21/21 10:31 CT angio chest PE protocol Stat Impression: 1. No CTA evidence for pulmonary embolus. 2. Compared to the portable chest radiograph, there are actually moderate-sized bilateral pleural effusions, left greater than right with compressive atelectasis/collapse of the left lung base. 3. No confluent alveolar opacities or bronchograms. 09/21/21 12:09 CT head/brain wo con Stat IMPRESSION: No acute intracerebral pathology. Mild cerebral cortical atrophy is again seen. 09/25/21 15:25 CT abd pelvis IV con only Routine IMPRESSION: No acute abnormalities. There is free fluid in the pelvis and peritoneum and diffuse anasarca. Prominent bilateral external iliac and inguinal lymph nodes. Ankle MRI 09/30/2021 IMPRESSION: Extremely limited examination as described above. There is no definite MR evidence for osteomyelitis. There is no evidence for Achilles tendinopathy. No other tendinous abnormality can be identified. No soft tissue ulceration is seen. Hospital Course (1) Metabolic encephalopathy: Secondary to hypoxia from CHF but also possibly due to bacteremia as below in the setting of baseline cognitive impairment Improved compared to admission, but confabulates at times, has looseness of associations, and also paranoia at times Continue treating Bacteremia with antibiotics Hypoxemia resolved with adequate diuresis (2) Acute respiratory failure with hypoxia: Probably multifactorial-now resolved A combination of CHF exacerbation, pleural effusion Patient initially on BIPAP, now weaned off to room air except when sleeping, except he really likes O2 for comfort even when has normal POx Chest x-ray 09/25 again with opacities bilateral atelectasis versus aspiration versus pulmonary edema continue Lasix 40 mg po every other day as per cardiology recommendation Would advise follow-up labs in 2 to 4 weeks to trend renal function and electrolytes (at discretion of PCP) (3) Sepsis: Sepsis, POA (patient presenting with a white blood cell count of 16.9, hypotension of 93/48, tachypnea of 26) now resolved (4) CHF (congestive heart failure): With acute on chronic diastolic CHF Most recent echocardiogram here with EF 40-45%, resolution of pericardial effusion, mildly dilated RV proBNP elevated at 32,000 on admission and now down to 19,000 Was hypoxic requiring BiPAP upon admission and now on room air after diuresis with IV lasix Lasix dosing every other day as recommended by cardiology Replace potassium as needed Follow BMP and magnesium as OP Hyponatremia now improved with diuresis Davis catheter removed (placed for I&O monitorring) Cumulative fluid balance is -12 L (5) Bacteremia: Growing MSSA in initial blood cultures from 09/21, 09/23, and again with GPC on cultures from 09/24 He has a history of this previously back in 05/2021 which was treated with 6 weeks of IV Ancef He is not able to have a ALE due to 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, but transthoracic echocardiogram without obvious valvular vegetation He has multiple abrasions all over his legs and ankles and toes as well as left hip wound, no cellulitis--> could be the source but could also be as a result of endocarditis Known wound to left ankleMRI obtained showing no evidence of osteomyelitis or tenosynovitis. No drainable abscess appreciated. CT abd/pel no source of infection but show anasarca UA no infection Cardiology consultation appreciated-certainly cannot undergo ALE due to his C1 fracture ID consult appreciated-we do not have ability to perform PET scan, WBC tagged scan, or cardiac MRI to further assess for source of infection or endocarditis Even if had significant endocarditis, he would not be a good surgical candidate for valve replacement Further discussed with ID on 09/25-options are to continue to treat with IV antibiotics long-term but he would be at high risk for recurrence. recommendations are for 6weeks IV Ancef then consider chronic oral suppression (consider ID FU as OP) Has been seen by palliative care Repeat blood cultures done 09/25 showing no growth to date. Midline since placed (consent obtained) now on Cefazolin for MSSA -Continue IV Ancef with last date of treatment being 11/06/2021 ESR 55--> 42 --> 34 CRP 11--> 8.3 --> 6.86 --> 4.36- Would advise serial inflammatory markers and follow-up labs every 1 to 2 weeks --at discretion of PCP (6) Leukocytosis: now resolved Continue treating bacteremia as above Follow CBC (7) Hypertension: held lisinopril and amlodipine while diuresing (with IV) --BP marginally low 133/76 today Lasix as above okay to resume lisinopril and amlodipine (may consider D/C in future) (8) Acute hyponatremia: Suspect secondary to acute heart failure. Improved with diuresis up to 133 -continue diuresis Monitor BMP (9) BPH (benign prostatic hyperplasia): Continue tamsulosin 0.4mg PO daily (10) Rheumatoid arthritis: Continue prednisone-unclear what home dose is as he was discharged on 10 mg daily just 2 months ago Increased prednisone to 10 mg daily for now Follows with rheumatology as an outpatient Hold Enbrel while actively bacteremic (11) Anemia: Hemoglobin low but stable from previous at 8.6, borderline microcytic Fe transferrin sat low at 16% -continue po FeSO4, would not give IV iron while bacteremic Other cell lines normal H/H stable (12) Hypokalemia: Replaced and now resolved Follow BMP magnesium in the morning Secondary to Lasix (13) Paroxysmal ventricular tachycardia: On previous admission was having frequent runs of this, now improved with amiodarone Has since been transferred off telemetry (14) Pressure ulcer: pressure ulcer of left lateral hip, extending over left buttock, stage II, POA Pressure-induced deep tissue injury to R foot over 1st and 5th metatarsal head, R third/fourth/fifth toes, and medial sacrum, POA wound care, offload pressure MRI as outlined above D/C back to back to [facility] where he is a bed hold and his legal guardian is [facility]-PICC line in place. need IV abx therapy Reaffirmed with patient that he wishes to be a full code Palliative care consultation placed given that he has recurrent bacteremia and likely has endocarditis which can not be treated surgically and is likely to recur again in the future. This may lead to continued decline. Needed goals of care discussion-appreciate palliative consultation-patient reports that he would have good quality of life as long as he can watch television. He also values pain control. He continues to want to be a full code and says he is not ready to . Total Time Total Time Spent Total Time Spent (In Minutes): 45 min Discharge Plan Discharge Items Patient Disposition: Trans Resident Long-Term Care Reason For Visit: ACUTE CHF, HYPOXIC RESPIRATORY FAILURE Discharge Diagnosis: 1. MSSA Bacteremia- requiring 6 weeks IV antibiotic therapy 2. Respiratory failure/CHF--> resolved 3. Sepsis syndrome (secondary to #1 and resolved) 4. Metabolic Encephalopathy- 2/2 #1 and 2--> resolved Activity: Resume your previous activity Non-emergency contact: Primary Care Provider Call non-emergency contact if: you have any medication questions Follow-up/Referrals: Joss Fry [Primary Care Provider] - Diet: Heart Healthy Addtl Attending Provider Instructions: - patient was hospitalized with respiratory failure (likely related to congestive heart failure). - In addition, was found to have reoccurrence of Bacteremia-- MSSA - unfortunately, unable to rule out endocarditis and given recurrent h/o this-- recommendations are for 6 weeks IV antibiotics (seen by Infectious Disease) -- Ancef 2G IV every 8 hours with last dose to complete on 10/27/2021 - routine PICC line care with routine flush per protocol - removal of PICC live recommended after completion of antibiotic therapy (at discretion of PCP/House Physician) - Recommend weekly labs (at discretion of PCP/House Physician): CBCD, BMP, ESR, CRP - note amiodarone was changed to once a day while in house. Recommendations (per cardiology) are for further downtitration of this (every other day and then stop) but to FU with cardiology as an outpatient to further discuss this - HOLD ENBREL while on IV antibiotics as this will further suppress immune system make it difficult to eradicate the bacteremia - follow up with House Physician within 24-48 hours - return to the ED as needed Pending Studies at Discharge: No Stand-Alone Forms: [employer] Skilled Items Patient informed of condition?: Yes DNR: Yes Discharge Level of Care: Skilled Communicable Disease: No Discharge Prognosis: Stable Lines: Mid-Line Urinary Catheter: No Medications and DC Order Prescriptions: New furosemide 40 mg Tablet 40 mg PO Q2D Qty: 30 RF: 0 amiodarone 200 mg Tablet 200 mg PO DAILY Qty: 30 RF: 0 cefazolin in dextrose (iso-os) 1 gram/50 mL piggyback 100 ml IV Q8H 42 Days RF: 0 Continued betamethasone dipropionate 0.05 % lotion 1 applic TOPICAL BID PRN (Reason: Rash) RF: 0 atorvastatin 40 mg Tablet 40 mg PO HS Qty: 0 RF: 0 acetaminophen [Tylenol] 325 mg Tablet 650 mg PO Q4H MDD 3 GRAMS/24 HOURS PRN (Reason: TEMP/PAIN) RF: 0 magnesium hydroxide [Milk of Magnesia] 400 mg/5 mL Suspension 30 ml PO DAILY PRN (Reason: Constipation) RF: 0 ropinirole 2 mg Tablet 2 mg PO Q12H RF: 0 docusate sodium 100 mg Capsule 100 mg PO BIDM RF: 0 omega-3 fatty acids [Fish Oil Concentrate] 1,000 mg capsule 1,000 mg PO BIDM RF: 0 multivitamin Tablet 1 tab PO DAILY RF: 0 Eliquis 5 mg tablet 5 mg PO BID RF: 0 amlodipine [Norvasc] 5 mg Tablet 5 mg PO QAM Qty: 30 RF: 5 polyethylene glycol 3350 [Miralax] 17 gram Powder In Packet 17 g PO DAILY Qty: 30 RF: 2 tamsulosin [Flomax] 0.4 mg capsule 0.4 mg PO DAILY Qty: 30 RF: 5 diclofenac sodium [Voltaren Arthritis Pain] 1 % Gel 4 g EXT QID Qty: 1 RF: 4 prednisone 10 mg tablet 10 mg PO DIRECTED Qty: 20 RF: 0 omeprazole 20 mg capsule,delayed release(DR/EC) 20 mg PO DAILY Qty: 30 RF: 5 potassium chloride 10 mEq tablet extended release 10 meq PO DAILY PRN (Reason: when furosemide is taken only) Qty: 30 RF: 0 hydrocodone-acetaminophen 5-325 mg tablet 1 tab PO Q6H PRN (Reason: pain) Qty: 30 RF: 0 albuterol sulfate 2.5 mg /3 mL (0.083 %) solution for nebulization 2.5 mg inhalation Q6H PRN (Reason: cough/wheeze/shortness of breath) Qty: 0 RF: 0 baclofen 10 mg tablet 5 mg PO TID Qty: 90 RF: 0 ferrous sulfate 325 mg (65 mg iron) Tablet 325 mg PO DAILY Qty: 0 RF: 0 lisinopril [Zestril] 5 mg Tablet 10 mg PO QAM Qty: 0 RF: 0 metoprolol succinate 200 mg tablet extended release 24 hr 200 mg PO DAILY Qty: 30 RF: 5 Discontinued Enbrel 50 mg/mL (1 mL) syringe 50 mg subcut WK Qty: 12 RF: 1 amiodarone 200 mg Tablet 200 mg PO BIDM Qty: 60 RF: 5 furosemide [Lasix] 20 mg tablet 20 mg PO DAILY PRN (Reason: weight gain / fluid build-up from CHF.) Qty: 30 RF: 0 Discharge Orders: Discharge Order (Routine); Ordered 10/01/21 Ordered By: Zayra Enciso Admission Data Admit Date/Time: 09/21/21 12:17 Attending Provider: Chandler Alves Admit Provider: Brendan Wall Primary Care Provider: Joss Fry Other Providers: Ang, ; Brendan Wall ; Shashank Gardner ; Rohith Mireles ; Bryn Monsivais I. ; Sebastián Siddiqi II ; Rochelle Guan ; Fidencio Crum ; Neil Waddell ; Stephen Cordova ; Patti Betancourt Other Interventions: Discharge Summary Assessment (RN) Last Done: 10/01/21 13:44 Supervising Physician Co-Signing Physician Notes I supervised Zayra Enciso PA-C on the care of this patient. I interviewed and examined the patient independently of her. The plan is as written in her note except for any following changes/exceptions: None Doing well today. Will need another 6-week course of IV abx per ID due to persistent bacteremia. Coding Level of Care Code D/C DAY MANAGEMENT >30 MINS Diagnoses Metabolic encephalopathy G93.41 Acute respiratory failure with hypoxia J96.01 Sepsis A41.9 CHF (congestive heart failure) I50.9 Heart failure chronicity: unspecified Heart failure type: unspecified Bacteremia R78.81 Leukocytosis D72.829 Leukocytosis type: unspecified Hypertension I10 Hypertension type: essential hypertension Acute hyponatremia E87.1 BPH (benign prostatic hyperplasia) N40.0 Lower urinary tract symptom presence: symptoms absent Rheumatoid arthritis M06.9 Anemia D50.8 Anemia type: iron deficiency Iron deficiency anemia type: inadequate dietary iron intake Hypokalemia E87.6 Paroxysmal ventricular tachycardia I47.2 Pressure ulcer L89.90
== END 2021-10-01 15:16 | DRG 871 ==
LOC: ED 09:39 → SUATTDRO 12:17 → EDINP 12:17 → 1E 16:01 → 3E 09-28 13:51